=== PATIENT | male | born 1950 | race Caucasian/White ===

== ENCOUNTER 2017-12-15 18:53 | Observation (INO) | payer MEDICARE, OTHER ==
[~2017-12-15] VITALS: Ht 175.3 cm; Wt 93.9 kg
[~2017-12-15 18:53] MED LIST: AMBIEN5 MG PO; ANTERA PO; ASPIR 8181 MG PO; ASPIRIN81 MG PO; CEFUROXIME250 MG PO; CITALOPRAM HBR40 MG PO; CLARITIN-D 241 EACH PO; DAILY VITAMIN1 EAC3 PO; FENOFIBRATE134 MG PO; FINASTERIDE5 MG PO; IBUPROFEN400 MG PO; LISINOPRIL10 MG PO; LORATADINE10 MG PO; OXYBUTYNIN CHLOR5 MG PO; TERAZOSIN HCL5 MG PO; VITAMIN C500 M1 PO; VITAMIN C500 M2
[2017-12-15 20:13] LABS: INR 1.07; PARTIAL THROMBOPLASTIN TIME 29.2 seconds (23.8-35.5); PROTHROMBIN TIME 13.1 seconds (11.9-14.5)
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
[2017-12-15 20:20] LABS: BASOPHILS # (AUTO) 0.1 (0.0-0.1); BASOPHILS % 0.8 % (0.0-1.0); EOSINOPHILS # (AUTO) 0.2 (0.0-0.4); EOSINOPHILS % 2.3 % (0.0-6.0); HEMATOCRIT 34.4 % (38.2-49.6); LYMPHOCYTES # (AUTO) 4.5 (1.0-3.2); LYMPHOCYTES % 45.6 % (18.0-39.1); MEAN CORPUSCULAR HEMOGLOBIN 33.9 pg (28-32); MEAN CORPUSCULAR HGB CONC 37.8 g/dL (31-35); MEAN CORPUSCULAR VOLUME 89.8 fL (81-99); NEUTROPHILS % 41.1 % (38.7-80.0); PLATELET COUNT 369 x10e3/uL (140-360); RED BLOOD COUNT 3.83 x10e6/uL (4.3-5.7); RED CELL DISTRIBUTION WIDTH 12.8 % (11.7-14.4)
[2017-12-15 20:21] LABS: ALANINE AMINOTRANSFERASE 48 IU/L (0-55); ALBUMIN 4.1 g/dL (3.5-5.0); ALBUMIN/GLOBULIN RATIO 1.3 (0.8-2.0); ALKALINE PHOSPHATASE 58 IU/L (40-150); ANION GAP 13.2 mmol/L (8-16); BLOOD UREA NITROGEN 24 mg/dL (7-26); BUN/CREATININE RATIO 23 (6-25); CARBON DIOXIDE 21 mmol/L (22-29); CHLORIDE 108 mmol/L (98-107); CREATINE KINASE 730 IU/L (30-200); CREATININE, SERUM 1.06 mg/dL (0.72-1.25); EST GLOMERULAR FILTRATION RATE > 60 ML/MIN (60-); GLUCOSE 94 mg/dL (74-118); POTASSIUM 4.2 mmol/L (3.5-5.1); SODIUM 138 mmol/L (136-145)
[2017-12-15 21:12] LABS: BILIRUBIN,URINE NEGATIVE (NEGATIVE); CLARITY,URINE CLEAR (CLEAR); COLOR,URINE YELLOW (YELLOW); KETONES,URINE NEGATIVE (NEGATIVE); LEUKOCYTE ESTERASE ,URINE NEGATIVE (NEGATIVE); NITRITE,URINE NEGATIVE (NEGATIVE); PROTEIN,URINE DIPSTICK NEGATIVE (NEGATIVE); URINE UROBILINOGEN 0.2 mg/dL (0.2 - 1)
[2017-12-15 21:30] LABS: BACTERIA,URINE RARE /HPF; EPITHELIAL CELLS,URINE FEW /LPF; RBC,URINE 0-5 /HPF (0-5); WBC,URINE (MAN) 0-5 /HPF (0-5)
[2017-12-15] MEDS ORDERED: KETOROLAC TROMETHAMINE 30 MG/ML VIAL IV STA (22:46)
[2017-12-15] MEDS ORDERED: ONDANSETRON HCL INJ 2 MG/ML VIAL IV STA (22:46)
[2017-12-15] MEDS ORDERED: MORPHINE SULFATE 2 MG/ML SYR IV STA (22:46)
[2017-12-15] MEDS ORDERED: SODIUM CHLORIDE 0.9% 1000ML 1,000 ML IV SCH (23:00)
[2017-12-15] MEDS ORDERED: SODIUM CHLORIDE 0.9% 50ML 50 ML ONE (23:22)
[2017-12-15] MEDS ORDERED: IOPAMIDOL 370 MG/ML 200 ML INFUS..BTL INJ ONE (23:23)
[2017-12-16] VITALS (8 sets, daily range): BP systolic 131–161; BP diastolic 60–72
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
[2017-12-16] MEDS ORDERED: ONDANSETRON HCL INJ 2 MG/ML VIAL IV PRN (00:45)
[2017-12-16] MEDS: FAMOTIDINE 20 MG/2 ML VIAL IV SCH ×2 (00:58→17:22)
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
[2017-12-16] MEDS: SODIUM CHLORIDE 0.9% 1000ML 1,000 ML IV SCH ×4 (04:05→17:54)
[2017-12-16] MEDS: MORPHINE SULFATE 2 MG/ML SYR IV PRN ×4 (04:12→23:50)
[2017-12-16] MEDS ORDERED: IBUPROFEN 400 MG TAB PO PRN (07:45)
[2017-12-16] MEDS: LORATADINE 10 MG TAB PO SCH (09:08)
[2017-12-16] MEDS: TERAZOSIN HCL 5 MG CAP PO SCH (09:08)
[2017-12-16] MEDS: LISINOPRIL 10 MG TAB PO SCH (09:08)
[2017-12-16] MEDS: ASPIRIN 81 MG CHEW TAB PO SCH (09:08)
[2017-12-16] MEDS: FINASTERIDE 5 MG TAB PO SCH (09:09)
[2017-12-16] MEDS: ASCORBIC ACID 500 MG TAB PO SCH (09:09)
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
[2017-12-16 15:47] LABS: BASOPHILS # (AUTO) 0.1 (0.0-0.1); BASOPHILS % 0.8 % (0.0-1.0); EOSINOPHILS # (AUTO) 0.3 (0.0-0.4); EOSINOPHILS % 3.4 % (0.0-6.0); HEMATOCRIT 30.8 % (38.2-49.6); HEMOGLOBIN 11.6 g/dL (14.0-18.0); LYMPHOCYTES % 37.8 % (18.0-39.1); MEAN CORPUSCULAR HGB CONC 37.7 g/dL (31-35); MEAN CORPUSCULAR VOLUME 90.3 fL (81-99); MONOCYTES # (AUTO) 0.8 (0.2-0.8); MONOCYTES % 10.2 % (4.4-11.3); NEUTROPHILS # (AUTO) 3.8 (2.1-6.9); NEUTROPHILS % 47.5 % (38.7-80.0); PLATELET COUNT 311 x10e3/uL (140-360); RED BLOOD COUNT 3.41 x10e6/uL (4.3-5.7)
[2017-12-16 16:11] LABS: ALANINE AMINOTRANSFERASE 40 IU/L (0-55); ALBUMIN 3.3 g/dL (3.5-5.0); ALBUMIN/GLOBULIN RATIO 1.3 (0.8-2.0); ALKALINE PHOSPHATASE 48 IU/L (40-150); ANION GAP 11.7 mmol/L (8-16); BLOOD UREA NITROGEN 18 mg/dL (7-26); BUN/CREATININE RATIO 21 (6-25); CALCIUM 8.2 mg/dL (8.4-10.2); CARBON DIOXIDE 22 mmol/L (22-29); CHLORIDE 112 mmol/L (98-107); CREATININE, SERUM 0.85 mg/dL (0.72-1.25); EST GLOMERULAR FILTRATION RATE > 60 ML/MIN (60-); GLUCOSE 100 mg/dL (74-118); POTASSIUM 4.7 mmol/L (3.5-5.1); SODIUM 141 mmol/L (136-145)
[2017-12-16 16:32] LABS: CREATINE KINASE 372 IU/L (30-200)
[2017-12-17] VITALS: BP 166/76
[2017-12-17] MEDS: FAMOTIDINE 20 MG/2 ML VIAL IV SCH ×2 (00:45→12:22)
[2017-12-17 01:48] LABS: CREATINE KINASE MB 3.7 ng/mL (0-5.0)
[2017-12-17] MEDS: MORPHINE SULFATE 2 MG/ML SYR IV PRN ×2 (03:36→11:06)
[2017-12-17 04:00] VITALS: BP 160/69
[2017-12-17 07:06] LABS: BASOPHILS # (AUTO) 0.1 (0.0-0.1); BASOPHILS % 0.7 % (0.0-1.0); EOSINOPHILS # (AUTO) 0.3 (0.0-0.4); EOSINOPHILS % 3.7 % (0.0-6.0); HEMATOCRIT 31.2 % (38.2-49.6); HEMOGLOBIN 11.7 g/dL (14.0-18.0); LYMPHOCYTES # (AUTO) 3.3 (1.0-3.2); MEAN CORPUSCULAR HEMOGLOBIN 34.4 pg (28-32); MEAN CORPUSCULAR HGB CONC 37.5 g/dL (31-35); MEAN CORPUSCULAR VOLUME 91.8 fL (81-99); MONOCYTES # (AUTO) 0.6 (0.2-0.8); MONOCYTES % 7.9 % (4.4-11.3); NEUTROPHILS # (AUTO) 3.9 (2.1-6.9); NEUTROPHILS % 47.5 % (38.7-80.0); PLATELET COUNT 310 x10e3/uL (140-360)
[2017-12-17 07:30] LABS: CREATINE KINASE 261 IU/L (30-200)
[2017-12-17 07:35] LABS: CHOL/HDL RATIO 5.5 (3.9-4.7)
[2017-12-17 07:37] VITALS: BP 159/71
[2017-12-17 07:38] LABS: ALANINE AMINOTRANSFERASE 43 IU/L (0-55); ALBUMIN 3.4 g/dL (3.5-5.0); ALBUMIN/GLOBULIN RATIO 1.5 (0.8-2.0); ALKALINE PHOSPHATASE 44 IU/L (40-150); ANION GAP 11.2 mmol/L (8-16); BLOOD UREA NITROGEN 14 mg/dL (7-26); BUN/CREATININE RATIO 17 (6-25); CALCIUM 8.3 mg/dL (8.4-10.2); CARBON DIOXIDE 22 mmol/L (22-29); CHLORIDE 112 mmol/L (98-107); CREATININE, SERUM 0.82 mg/dL (0.72-1.25); EST GLOMERULAR FILTRATION RATE > 60 ML/MIN (60-); GLUCOSE 116 mg/dL (74-118); POTASSIUM 4.2 mmol/L (3.5-5.1); SODIUM 141 mmol/L (136-145)
[2017-12-17] MEDS: ASCORBIC ACID 500 MG TAB PO SCH (10:34)
[2017-12-17] MEDS: LORATADINE 10 MG TAB PO SCH (10:34)
[2017-12-17] MEDS: LISINOPRIL 10 MG TAB PO SCH (10:34)
[2017-12-17] MEDS: FINASTERIDE 5 MG TAB PO SCH (10:34)
[2017-12-17] MEDS: ASPIRIN 81 MG CHEW TAB PO SCH (10:34)
[2017-12-17] MEDS: TERAZOSIN HCL 5 MG CAP PO SCH (10:34)
[2017-12-17 11:12] VITALS: BP 154/70
[2017-12-17 15:31] VITALS: BP 162/79
[2017-12-17] MEDS ORDERED: FAMOTIDINE 20 MG TAB PO SCH (16:30)
[2017-12-18] MEDS ORDERED: LISINOPRIL 20 MG TAB PO SCH (09:00)
== END 2017-12-17 18:00 | disposition home or self-care (01) ==
LOC: ER 18:53 → IMCU 12-16 01:17
PROVIDERS: ADMIT Internal Medicine; ATTEND Internal Medicine
DX: R07.89 Other chest pain (principal); T79.6XXA Traumatic ischemia of muscle, initial encounter; V43.52XA Car driver injured in collision with other type car in traffic accident, initial encounter; I10 Essential (primary) hypertension; E78.5 Hyperlipidemia, unspecified; R55 Syncope and collapse; N40.0 Benign prostatic hyperplasia without lower urinary tract symptoms
CPT/HCPCS: 36415 ×2; 70450; 71046; 71260; 72125; 80053 ×3; 80061; 81001; 82550 ×3; 82553 ×3; 84484 ×3; 85025 ×3; 85610; 85730; 93005 ×2; 93306; 93880; 97139; 99284; G0378 ×2; J1885; J2270 ×3; J2405; J7030 ×2; Q9967

== ENCOUNTER 2018-02-13 20:34 | Emergency (ER) | payer MEDICARE, OTHER ==
[~2018-02-13] VITALS: Ht 175.3 cm; Wt 93.9 kg
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
[2018-02-13 21:12] LABS: INR 1.01; PROTHROMBIN TIME 12.5 seconds (11.9-14.5)
[2018-02-13 21:13] LABS: PARTIAL THROMBOPLASTIN TIME 27.4 seconds (23.8-35.5)
[2018-02-13 21:22] LABS: ALANINE AMINOTRANSFERASE 38 IU/L (0-55); ALBUMIN 3.8 g/dL (3.5-5.0); ALBUMIN/GLOBULIN RATIO 1.1 (0.8-2.0); ALKALINE PHOSPHATASE 63 IU/L (40-150); ANION GAP 14.8 mmol/L (8-16); BLOOD UREA NITROGEN 15 mg/dL (7-26); BUN/CREATININE RATIO 16 (6-25); CALCIUM 9.4 mg/dL (8.4-10.2); CARBON DIOXIDE 22 mmol/L (22-29); CHLORIDE 106 mmol/L (98-107); CREATINE KINASE 172 IU/L (30-200); CREATININE, SERUM 0.95 mg/dL (0.72-1.25); EST GLOMERULAR FILTRATION RATE > 60 ML/MIN (60-); GLUCOSE 106 mg/dL (74-118); POTASSIUM 3.8 mmol/L (3.5-5.1); SODIUM 139 mmol/L (136-145)
[2018-02-13] MEDS ORDERED: ACETAMINOPHEN 325 MG TAB ONE (21:37)
[2018-02-13 21:46] LABS: BASOPHILS # (AUTO) 0.1 (0.0-0.1); BASOPHILS % 0.7 % (0.0-1.0); EOSINOPHILS # (AUTO) 0.3 (0.0-0.4); EOSINOPHILS % 2.5 % (0.0-6.0); LYMPHOCYTES # (AUTO) 4.6 (1.0-3.2); LYMPHOCYTES % 43.3 % (18.0-39.1); MEAN CORPUSCULAR HEMOGLOBIN 34.3 pg (28-32); MEAN CORPUSCULAR HGB CONC 37.5 g/dL (31-35); MEAN CORPUSCULAR VOLUME 91.5 fL (81-99); MONOCYTES # (AUTO) 1.2 (0.2-0.8); MONOCYTES % 10.7 % (4.4-11.3); NEUTROPHILS # (AUTO) 4.5 (2.1-6.9); NEUTROPHILS % 42.3 % (38.7-80.0); PLATELET COUNT 390 x10e3/uL (140-360); RED BLOOD COUNT 5.04 x10e6/uL (4.3-5.7); RED CELL DISTRIBUTION WIDTH 14.9 % (11.7-14.4)
[2018-02-13 21:48] LABS: HEMATOCRIT 46.1 % (38.2-49.6); HEMOGLOBIN 17.3 g/dL (14.0-18.0)
--- NOTE | 2018-02-13 22:08 | Diagnostic Imaging Report ---
EXAMINATION: CHEST SINGLE (PORTABLE) INDICATION: Chest pain. COMPARISON: CT of the chest on 12/15/2017 and chest x-ray on 12/15/2017 FINDINGS: TUBES and LINES: None. LUNGS: Lungs are not well inflated. Lungs are clear. There is mild prominence of the central pulmonary vasculature, consistent with pulmonary venous congestion. PLEURA: No pleural effusion or pneumothorax. HEART AND MEDIASTINUM: The cardiomediastinal silhouette is unremarkable. There are atherosclerotic calcifications within the aorta. BONES AND SOFT TISSUES: No acute osseous lesion. Soft tissues are unremarkable. UPPER ABDOMEN: No free air under the diaphragm. IMPRESSION: No acute thoracic abnormality. Signed by: Dr. Patric Multani M.D. on 02/13/2018 10:00 PM
[2018-02-13] MEDS ORDERED: IOPAMIDOL 370 MG/ML 200 ML INFUS..BTL INJ ONE (22:18)
[2018-02-13] MEDS ORDERED: SODIUM CHLORIDE 0.9% 50ML 50 ML ONE (22:19)
--- NOTE | 2018-02-13 22:42 | Diagnostic Imaging Report ---
EXAM: CT Chest WITH contrast 02/13/2018 10:00 PM INDICATION: Shortness of breath, pulmonary embolism COMPARISON: Chest CT on 12/15/2017 TECHNIQUE: Chest was scanned utilizing a multidetector helical scanner from the lung apex through the level of the diaphragm after administration of IV contrast. Thin section reconstructions were obtained with special concentration on the pulmonary arteries. Coronal and sagittal reformations were obtained. Pulmonary embolism protocol was performed. IV CONTRAST: 70 mL of Isovue-370 RADIATION DOSE: Total DLP: 626.36 mGy*cm Estimated effective dose: (DLP x 0.014 x size factor) mSv COMPLICATIONS: None FINDINGS: LINES/ TUBES: None. LUNGS AND AIRWAYS: No filling defect is identified within the pulmonary arteries to the segmental level. There is a 4 mm pulmonary nodule adjacent to the major fissure of the right lung on series 3, image 62 There is evidence of centrilobular and paraseptal emphysema. Airways are normal. PLEURA: The pleural spaces are clear. HEART AND MEDIASTINUM: The thyroid gland is normal. No mediastinal, hilar or axillary lymphadenopathy. The heart is normal in size.. There is no pericardial effusion. There are moderate atherosclerotic calcifications in the aorta and coronary arteries.. Main pulmonary artery measures 3.0 cm in diameter , slightly dilated. UPPER ABDOMEN: Diffuse hepatic steatosis. BONES: There are degenerative changes in the thoracic spine. SOFT TISSUES: Unremarkable. IMPRESSION: 1. No evidence of pulmonary embolism. 2. Centrilobular and paraseptal emphysema. 3. Right pulmonary nodule, attention on follow-up examination is recommended. 4. Mild atherosclerotic disease of the thoracic aorta and branches 5. Mild dilatation of the pulmonary artery may suggest pulmonary hypertension. Signed by: Dr. Patric Multani M.D. on 02/13/2018 10:38 PM
[2018-02-13 23:21] VITALS: BP 139/83
== END 2018-02-13 23:43 | disposition home or self-care (01) ==
LOC: ER 20:34
DX: R07.1 Chest pain on breathing (principal); E78.5 Hyperlipidemia, unspecified; J61 Pneumoconiosis due to asbestos and other mineral fibers; N40.0 Benign prostatic hyperplasia without lower urinary tract symptoms; Z79.82 Long term (current) use of aspirin
CPT/HCPCS: 36415; 71045; 71260; 80053; 82550; 82553; 83880; 84484; 85025; 85379; 85610; 85730; 93005; 99284; Q9967

== ENCOUNTER 2018-04-17 15:35 | Emergency (ER) | payer MEDICARE, OTHER ==
[~2018-04-17] VITALS: Ht 177.8 cm; Wt 99.8 kg
[2018-04-17 16:56] LABS: BASOPHILS % 0.4 % (0.0-1.0); EOSINOPHILS # (AUTO) 0.2 (0.0-0.4); HEMATOCRIT 37.3 % (38.2-49.6); HEMOGLOBIN 13.6 g/dL (14.0-18.0); LYMPHOCYTES % 40.8 % (18.0-39.1); MEAN CORPUSCULAR HEMOGLOBIN 33.5 pg (28-32); MEAN CORPUSCULAR HGB CONC 36.5 g/dL (31-35); MEAN CORPUSCULAR VOLUME 91.9 fL (81-99); MONOCYTES # (AUTO) 0.7 (0.2-0.8); MONOCYTES % 7.5 % (4.4-11.3); NEUTROPHILS # (AUTO) 4.8 (2.1-6.9); NEUTROPHILS % 48.9 % (38.7-80.0); PLATELET COUNT 335 x10e3/uL (140-360); RED BLOOD COUNT 4.06 x10e6/uL (4.3-5.7); RED CELL DISTRIBUTION WIDTH 13.1 % (11.7-14.4)
[2018-04-17 17:28] LABS: ALANINE AMINOTRANSFERASE 68 IU/L (0-55); ALBUMIN/GLOBULIN RATIO 1.3 (0.8-2.0); ALKALINE PHOSPHATASE 54 IU/L (40-150); ANION GAP 17.4 mmol/L (8-16); BLOOD UREA NITROGEN 22 mg/dL (7-26); BUN/CREATININE RATIO 18 (6-25); CALCIUM 9.8 mg/dL (8.4-10.2); CARBON DIOXIDE 20 mmol/L (22-29); CHLORIDE 107 mmol/L (98-107); CREATINE KINASE 522 IU/L (30-200); EST GLOMERULAR FILTRATION RATE 60 ML/MIN (60-); GLUCOSE 103 mg/dL (74-118); POTASSIUM 4.4 mmol/L (3.5-5.1); SODIUM 140 mmol/L (136-145)
--- NOTE | 2018-04-17 17:38 | Diagnostic Imaging Report ---
PROCEDURE:X-RAY LEFT SHOULDER, COMPLETE COMPARISON:Chest CT 02/13/2018 INDICATIONS:FALL SHOULDER PAIN FINDINGS: There are no acute fractures, dislocations, lytic or blastic lesions. The bones are well-mineralized. A well corticated density projects within the coracoclavicular interval and may represent a ligamentous calcification or old avulsion, stable from chest CT 02/13/2018. The coracoclavicular and acromioclavicular intervals are intact. The soft-tissues are unremarkable. CONCLUSION: No acute osseous abnormalities. Dictated by: Robert Robbins M.D. on 04/17/2018 at 17:42 Electronically approved by: Robert Robbins M.D. on 04/17/2018 at 17:42
--- NOTE | 2018-04-17 17:41 | Diagnostic Imaging Report ---
PROCEDURE: A single AP view of the chest. COMPARISON: Chest radiograph and CT from 02/13/2018 INDICATIONS: FALL FINDINGS: Lines/tubes: None. Lungs: The lungs are well inflated and clear. There is no evidence of pneumonia or pulmonary edema. Pleura: There is no pleural effusion or pneumothorax. Heart and mediastinum: The heart and the mediastinum are unremarkable. Bones: No acute bony abnormality. IMPRESSION: No acute cardiopulmonary disease. Dictated by: Robert Robbins M.D. on 04/17/2018 at 17:45 Electronically approved by: Robert Robbins M.D. on 04/17/2018 at 17:45
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
[2018-04-17] MEDS ORDERED: MORPHINE SULFATE 2 MG/ML SYR IV STA (18:43)
[2018-04-17 20:02] VITALS: BP 125/66
== END 2018-04-17 20:05 | disposition home or self-care (01) ==
LOC: ER 15:35
DX: S06.0X1A Concussion with loss of consciousness of 30 minutes or less, initial encounter (principal); S16.1XXA Strain of muscle, fascia and tendon at neck level, initial encounter; W01.198A Fall on same level from slipping, tripping and stumbling with subsequent striking against other object, initial encounter; Y93.89 Activity, other specified; Y92.238 Other place in hospital as the place of occurrence of the external cause; I10 Essential (primary) hypertension; E78.5 Hyperlipidemia, unspecified; F41.9 Anxiety disorder, unspecified; F32.9 Major depressive disorder, single episode, unspecified
CPT/HCPCS: 36415; 70450; 71045; 72125; 73030; 80053; 82550; 82553; 84484; 85025; 93005; 99284; J2270

== ENCOUNTER → 2018-12-24 | Day surgery (SDC) | payer MEDICARE, OTHER ==
[2018-12-23 13:47] LABS: BASOPHILS # (AUTO) 0.1 (0.0-0.1); BASOPHILS % 0.7 % (0.0-1.0); EOSINOPHILS # (AUTO) 0.2 (0.0-0.4); HEMATOCRIT 40.3 % (38.2-49.6); HEMOGLOBIN 15.1 g/dL (14.0-18.0); LYMPHOCYTES # (AUTO) 4.9 (1.0-3.2); LYMPHOCYTES % 45.9 % (18.0-39.1); MEAN CORPUSCULAR HGB CONC 37.5 g/dL (31-35); MEAN CORPUSCULAR VOLUME 90.8 fL (81-99); MONOCYTES % 9.8 % (4.4-11.3); NEUTROPHILS # (AUTO) 4.4 (2.1-6.9); NEUTROPHILS % 41.3 % (38.7-80.0); PLATELET COUNT 274 x10e3/uL (140-360); RED BLOOD COUNT 4.44 x10e6/uL (4.3-5.7); RED CELL DISTRIBUTION WIDTH 13.3 % (11.7-14.4)
[2018-12-23 13:48] LABS: ALANINE AMINOTRANSFERASE 54 IU/L (0-55); ALBUMIN 3.9 g/dL (3.5-5.0); ALBUMIN/GLOBULIN RATIO 1.3 (0.8-2.0); ALKALINE PHOSPHATASE 84 IU/L (40-150); BLOOD UREA NITROGEN 15 mg/dL (7-26); BUN/CREATININE RATIO 19 (6-25); CALCIUM 9.3 mg/dL (8.4-10.2); CARBON DIOXIDE 21 mmol/L (22-29); CHLORIDE 107 mmol/L (98-107); CREATININE, SERUM 0.78 mg/dL (0.72-1.25); EST GLOMERULAR FILTRATION RATE > 60 ML/MIN (60-); GLUCOSE 96 mg/dL (74-118); SODIUM 136 mmol/L (136-145)
[~2018-12-24] VITALS: Ht 175.3 cm; Wt 99.8 kg
[2018-12-24] VITALS (7 sets, daily range): BP systolic 109–129; BP diastolic 60–87
[~2018-12-24] MED LIST changes: +ADVAIR 100-501 EACH; +ATROPINE SULFATE 0.1 MG/ML 10ML SYR ONE; +FENTANYL CITRATE/PF 100MCG/2 ML INJ ONE; +HEPARIN SOD (PORCINE) 1000 UNIT/ML 30ML ONE; +HEPARIN SOD/SOD CHLORIDE 2,000 ML ONE; +IOPAMIDOL 370 MG/ML 200 ML INFUS..BTL INJ ONE; +LIDOCAINE HCL 1% LOCAL INJ 20 ML VIAL ONE; +METOPROLOL SUCC25 MG; +MIDAZOLAM HCL 2 MG/2 ML VIAL ONE; +PLAVIX75 MG PO; +PROTAMINE SULFATE 10 MG/ML 5 ML VIAL ONE; +SODIUM CHLORIDE 0.9% 1000ML 1,000 ML ONE; +SODIUM CHLORIDE 0.9% 50ML 50 ML ONE
--- OUTSIDE RECORDS SUMMARY | 2018-12-24 11:57 | XMS REPORT | Summary of Care ---
Author Author [facility] Organization [facility] Address Unknown Phone Unavailable Encounter HQ Marcin(SANDRO) [id number] Date(s): 03/12/18 - 03/13/18 [facility] [address] [place] [address]- Discharge Disposition: Home or Self Care Attending Physician: Ye Thomas MD Admitting Physician: Ye Thomas MD Referring Physician: Ye Thomas MD Vital Signs 1 2 3 Most recent to oldest [Reference Range]: 173.99 cm (03/11/18 8:33 PM) 175.2 cm (03/11/18 12:31 PM) Height 98.6 DegF (03/13/18 12:00 PM) 98.9 DegF (03/13/18 8:00 AM) 98.3 DegF (03/13/18 12:00 AM) Temperature Oral [96.4-99.1 DegF] 123/59 mmHg (03/13/18 12:00 PM) 113/74 mmHg (03/13/18 11:00 AM) 133/69 mmHg (03/13/18 10:00 AM) Blood Pressure [90-140/60-90 mmHg] 15 BRMIN (03/13/18 12:00 PM) 15 BRMIN (03/13/18 11:00 AM) 18 BRMIN (03/13/18 10:00 AM) Respiratory Rate [14-20 BRMIN] 101.3 kg (03/11/18 8:33 PM) 98.8 kg (03/11/18 12:31 PM) Weight 33.46 m2 (03/11/18 8:33 PM) 32.19 m2 (03/11/18 12:31 PM) Body Mass Index Problem List No data available for this section Allergies, Adverse Reactions, Alerts Substance Reaction Severity Status Vicodin Active Benadryl Vicodin Active Medications ALPRAZOLam 0.5 mg oral tablet 0.5 mg, 1 tab, Route: PO, ONCE, Dosing Weight 98.8, kg, Start date: 03/11/18 17: 35:00 CDT, Stop date: 03/11/18 17:35:00 CDT Start Date: 03/11/18 Stop Date: 03/11/18 Status: Completed ALPRAZOLam 0.5 mg oral tablet 0.5 mg, 1 tab, Route: PO, Drug form: TAB, Q8Hnow, Dosing Weight 98.8, kg, Start date: 03/11/18 13:00:00 CDT, Duration: 30 day, Stop date: 04/10/18 5:00:00 CDT Notes: With food or milk(Same as: Xanax) Start Date: 03/11/18 Stop Date: 03/11/18 Status: Discontinued aspirin 81 mg tablet, chewable 81 mg, 1 tab, Route: PO, Drug form: CHEWTAB, Daily, Dosing Weight 98.8, kg, Star t date: 03/12/18 9:00:00 CDT, Duration: 30 day, Stop date: 04/10/18 9:00:00 CDT Start Date: 03/12/18 Stop Date: 03/11/18 Status: Deleted aspirin 81 mg tablet, chewable 81 mg=1 tab, PO, Daily, tab, 0 Refill(s) Start Date: 03/11/18 Status: Ordered aspirin 81 mg tablet, enteric coated 81 mg, 1 tab, Route: PO, Drug form: ECTAB, Daily, Dosing Weight 98.8, kg, Start date: 03/12/18 9:00:00 CDT, Duration: 30 day, Stop date: 04/10/18 9:00:00 CDT Notes: Do not crush or chew.(Same As: Ecotrin) Start Date: 03/12/18 Stop Date: 03/13/18 Status: Discontinued atorvastatin PO, Daily, 0 Refill(s) Start Date: 03/11/18 Stop Date: 03/13/18 Status: Discontinued atorvastatin 40 mg, 1 tab, Route: PO, Drug form: TAB, Daily, Dosing Weight 98.8, kg, Start da te: 03/12/18 9:00:00 CDT, Duration: 30 day, Stop date: 04/10/18 9:00:00 CDT Notes: (Same as: Lipitor) Start Date: 03/12/18 Stop Date: 03/13/18 Status: Discontinued atorvastatin 40 mg oral tablet 40 mg=1 tab, PO, Daily, # 30 tab, 0 Refill(s), Pharmacy: [facility] [id number] Start Date: 03/13/18 Status: Ordered citalopram 20 mg, 2 tab, Route: PO, Drug form: TAB, Daily, Dosing Weight 98.8, kg, Start da te: 03/12/18 9:00:00 CDT, Duration: 30 day, Stop date: 04/10/18 9:00:00 CDT Start Date: 03/12/18 Stop Date: 03/13/18 Status: Discontinued citalopram 40 mg oral tablet 20 mg=0.5 tab, PO, Daily, 0 Refill(s) Start Date: 03/11/18 Status: Ordered clopidogrel 75 mg, 1 tab, Route: PO, Drug form: TAB, Daily, Dosing Weight 98.8, kg, Start da te: 03/12/18 9:00:00 CDT, Duration: 30 day, Stop date: 04/10/18 9:00:00 CDT Notes: (Same As: Plavix) Start Date: 03/12/18 Stop Date: 03/13/18 Status: Discontinued clopidogrel 75 mg oral tablet 75 mg=1 tab, PO, Daily, # 30 tab, 0 Refill(s), Pharmacy: [facility] [id number] Start Date: 03/13/18 Status: Ordered famotidine 20 mg, 1 tab, Route: PO, Drug form: TAB, Q12H, Dosing Weight 98.8, kg, Start luther e: 03/11/18 21:00:00 CDT, Duration: 30 day, Stop date: 04/10/18 9:00:00 CDT Notes: (Same as: Pepcid) Start Date: 03/11/18 Stop Date: 03/13/18 Status: Discontinued fentaNYL 25 microgram, 0.5 mL, Route: IVP, Drug form: INJ, Q4H, Dosing Weight 101.3, kg, PRN Pain Score 6-10, Priority: NOW, Start date: 03/12/18 20:17:00 CDT, Duration: 30 day, Stop date: 04/11/18 20:16:00 CDT Notes: (Same as: Sublimaze) Preservative free. Start Date: 03/12/18 Stop Date: 03/13/18 Status: Discontinued Heparin 30 unit/kg Bolus (Heparin Dosing Weight) Route: IVP, PRN, 2,400 unit, 2.4 mL, Drug form: INJ, PRN, Heparin Protocol, Star t date: 03/11/18 17:52:00 CDT Stop date: 04/10/18 17:51:00 CDT, 30 day Start Date: 03/11/18 Stop Date: 03/12/18 Status: Discontinued Heparin 60 unit/kg Bolus (Heparin Dosing Weight) Route: IVP, PRN, 4,800 unit, 4.8 mL, Drug form: INJ, PRN, Heparin Protocol, Star t date: 03/11/18 17:52:00 CDT Stop date: 04/10/18 17:51:00 CDT, 30 day Start Date: 03/11/18 Stop Date: 03/12/18 Status: Discontinued heparin additive 25,000 unit [12 unit/kg/hr] + Premix Diluent Dextrose 5% 500 mL 500 mL, Rate: 19.01 ml/hr, Infuse over: 26.3 hr, Route: IV, Dosing Weight 79.2 k g, Total Volume: 500 mL, Start date: 03/11/18 17:52:00 CDT, Duration: 30 day, St op date: 04/10/18 17:51:00 CDT, 1.98, m2 Start Date: 03/11/18 Stop Date: 03/12/18 Status: Discontinued hydrALAZINE 20 mg, 1 mL, Route: IV, Drug form: INJ, Q4H, Dosing Weight 101.3, kg, PRN Hypert ension, Start date: 03/12/18 12:39:00 CDT, Duration: 30 day, Stop date: 04/11/18 12:38:00 CDT Notes: (Same as: Apresoline)Push over 5 minutes Start Date: 03/12/18 Stop Date: 03/13/18 Status: Discontinued lisinopril 20 mg, 1 tab, Route: PO, Drug form: TAB, Daily, Dosing Weight 98.8, kg, Start da te: 03/12/18 9:00:00 CDT, Duration: 30 day, Stop date: 04/10/18 9:00:00 CDT Notes: (Same as: Prinivil, Zestril) Start Date: 03/12/18 Stop Date: 03/13/18 Status: Discontinued lisinopril 20 mg oral tablet 20 mg=1 tab, PO, Daily, 0 Refill(s) Start Date: 03/11/18 Status: Ordered Lotrimin AF Cream 1% topical 1 appl, Route: TOP, BID, Drug form: CRM, Start date: 03/11/18 17:00:00 CDT, Dura tion: 30 day, Stop date: 04/10/18 9:00:00 CDT Notes: For external use only.(Same As: Lotrimin AF, Mycelex) Start Date: 03/11/18 Stop Date: 03/13/18 Status: Discontinued Lotrimin AF Cream 1% topical 1 appl, TOP, BID, 0 Refill(s) Start Date: 03/11/18 Status: Ordered metoprolol 25 mg oral tablet, extended release 25 mg=1 tab, PO, Daily, # 30 tab, 0 Refill(s), Pharmacy: [facility] [id number] Start Date: 03/13/18 Status: Ordered metoprolol extended release 25 mg, 1 tab, Route: PO, Drug form: ERTAB, Daily, Start date: 03/12/18 9:00:00 C DT, Duration: 30 day, Stop date: 04/10/18 9:00:00 CDT Notes: (Same as: Toprol XL) Do Not Crush Start Date: 03/12/18 Stop Date: 03/13/18 Status: Discontinued morphine Sulfate 4 mg, 2 mL, Route: IVP, Drug form: SOLN, Q2H, Dosing Weight 98.8, kg, PRN Pain S core 7-10, Start date: 03/11/18 16:20:00 CDT, Duration: 30 day, Stop date: 04/10 16:19:00 CDT Start Date: 03/11/18 Stop Date: 03/12/18 Status: Discontinued morphine Sulfate 12 mg, 6 mL, Route: PO, Drug form: SOLN, Q4H, Dosing Weight 101.3, kg, PRN Pain Score 7-10, Start date: 03/12/18 12:36:00 CDT, Duration: 30 day, Stop date: 03/23 11/08 12:35:00 CDT Notes: (Same as:MORPhine Sulfate) Start Date: 03/12/18 Stop Date: 03/13/18 Status: Discontinued Mucinex 1200, PO, Daily, PRN Allergies, 0 Refill(s) Start Date: 03/12/18 Stop Date: 03/13/18 Status: Discontinued nitroglycerin SL Tab 0.4 mg, 1 tab, Route: SL, Drug form: TAB, Q5Min, Dosing Weight 98.8, kg, PRN [address] st Pain, Start date: 03/11/18 16:20:00 CDT, Duration: 3 doses or times, Stop luther e: Limited # of times Notes: (Same as:Nitroquick, Nitrostat)"Do Not Crush" Sublingual tablet Start Date: 03/11/18 Stop Date: 03/13/18 Status: Discontinued nitroglycerin SL Tab 0.4 mg, 1 tab, Route: SL, Drug form: TAB, Q5Min, Dosing Weight 101.3, kg, PRN Ch est Pain, Start date: 03/12/18 12:36:00 CDT, Duration: 3 doses or times, Stop da te: Limited # of times Notes: (Same as:Nitroquick, Nitrostat)"Do Not Crush" Sublingual tablet Start Date: 03/12/18 Stop Date: 03/13/18 Status: Discontinued ondansetron 4 mg, 1 tab, Route: PO, Drug form: TAB, Q8H, Dosing Weight 98.8, kg, PRN Nausea & Vomiting, Start date: 03/11/18 16:20:00 CDT, Duration: 30 day, Stop date: 04/10/18 16:19:00 CDT Notes: (Same as: Zofran) Start Date: 03/11/18 Stop Date: 03/13/18 Status: Discontinued prasugrel 60 mg, Route: PO, Drug form: TAB, ONCE, Dosing Weight 98.8, kg, Priority: NOW, S tart date: 03/11/18 16:19:00 CDT, Stop date: 03/11/18 16:19:00 CDT Start Date: 03/11/18 Stop Date: 03/11/18 Status: Completed Sodium Chloride 0.9% IV 750 mL 750 mL, Rate: 75 ml/hr, Infuse over: 10 hr, Route: IV, Dosing Weight 98.8 kg, To akil Volume: 750, Start date: 03/11/18 16:20:00 CDT, Duration: 10 hr, Stop date: 03/12/18 2:19:00 CDT, 2.21, m2 Start Date: 03/11/18 Stop Date: 03/12/18 Status: Completed Sodium Chloride 0.9% IV 750 mL 750 mL, Rate: 75 ml/hr, Infuse over: 10 hr, Route: IV, Dosing Weight 101.3 kg, T otal Volume: 750, Start date: 03/12/18 12:36:00 CDT, Duration: 10 hr, Stop date: 03/12/18 22:35:00 CDT, 2.24, m2 Start Date: 03/12/18 Stop Date: 03/12/18 Status: Completed terazosin 10 mg, 2 cap, Route: PO, Drug form: CAP, Bedtime, Dosing Weight 98.8, kg, Start date: 03/11/18 21:00:00 CDT, Duration: 30 day, Stop date: 04/09/18 21:00:00 CDT Notes: (Same As: Hytrin) Start Date: 03/11/18 Stop Date: 03/13/18 Status: Discontinued terazosin 10 mg oral capsule 10 mg=1 cap, PO, Bedtime, 0 Refill(s) Start Date: 03/11/18 Status: Ordered Results ELECTROLYTES 1 2 3 Most recent to oldest [Reference Range]: 138 mEq/L (03/13/18 4:49 AM) 140 mEq/L (03/12/18 7:06 AM) 140 mEq/L (03/11/18 12:39 PM) Sodium Lvl [135-145 mEq/L] 3.7 mEq/L (03/13/18 4:49 AM) 4.0 mEq/L (03/12/18 7:06 AM) 4.6 mEq/L (03/11/18 12:39 PM) Potassium Lvl [3.5-5.1 mEq/L] 108 mEq/L (03/13/18 4:49 AM) 107 mEq/L (03/12/18 7:06 AM) 107 mEq/L (03/11/18 12:39 PM) Chloride Lvl [95-109 mEq/L] 24 mEq/L (03/13/18 4:49 AM) 26 mEq/L (03/12/18 7:06 AM) 24 mEq/L (03/11/18 12:39 PM) CO2 [24-32 mEq/L] 9.7 mEq/L *LOW* (03/13/18 4:49 AM) 11.0 mEq/L (03/12/18 7:06 AM) 13.6 mEq/L (03/11/18 12:39 PM) AGAP [10.0-20.0 mEq/L] CHEM PANEL 1 2 3 Most recent to oldest [Reference Range]: 1.07 mg/dL (03/13/18 4:49 AM) 0.95 mg/dL (03/12/18 7:06 AM) 1.00 mg/dL (03/11/18 12:39 PM) Creatinine Lvl [0.50-1.40 mg/dL] 53 mL/min/1.73m2 1 *NA* (03/13/18 4:49 AM) 62 mL/min/1.73m2 2 *NA* (03/12/18 7:06 AM) 58 mL/min/1.73m2 3 *NA* (03/11/18 12:39 PM) eGFR 16 mg/dL (03/13/18 4:49 AM) 16 mg/dL (03/12/18 7:06 AM) 13 mg/dL (03/11/18 12:39 PM) BUN [7-22 mg/dL] 17 (03/12/18 7:06 AM) 13 (03/11/18 12:39 PM) B/C Ratio [6-25] 118 mg/dL *HI* (03/13/18 4:49 AM) 113 mg/dL *HI* (03/12/18 7:06 AM) 87 mg/dL (03/11/18 12:39 PM) Glucose Lvl [70-99 mg/dL] 6.4 g/dL (03/12/18 7:06 AM) 7.0 g/dL (03/11/18 12:39 PM) Total Protein [6.4-8.4 g/dL] 3.3 g/dL *LOW* (03/12/18 7:06 AM) 3.9 g/dL (03/11/18 12:39 PM) Albumin Lvl [3.5-5.0 g/dL] 3.1 g/dL (03/12/18 7:06 AM) 3.1 g/dL (03/11/18 12:39 PM) Globulin [2.7-4.2 g/dL] 1.1 (03/12/18 7:06 AM) 1.3 (03/11/18 12:39 PM) A/G Ratio [0.7-1.6] 7.8 mg/dL *LOW* (03/13/18 4:49 AM) 8.1 mg/dL *LOW* (03/12/18 7:06 AM) 8.9 mg/dL (03/11/18 12:39 PM) Calcium Lvl [8.5-10.5 mg/dL] 49 unit/L (03/12/18 7:06 AM) 51 unit/L (03/11/18 12:39 PM) ALT [0-65 unit/L] 31 unit/L (03/12/18 7:06 AM) 28 unit/L (03/11/18 12:39 PM) AST [0-37 unit/L] 54 unit/L (03/12/18 7:06 AM) 60 unit/L (03/11/18 12:39 PM) Alk Phos [39-136 unit/L] 0.7 mg/dL (03/12/18 7:06 AM) 0.3 mg/dL (03/11/18 12:39 PM) Bili Total [0.2-1.3 mg/dL] 1Result Comment: The eGFR is calculated using the CKD-EPI formula. In most young, healthy individuals the eGFR will be >90 mL/min/1.73m2. The eGFR declines with age. An eGFR of 60-89 may be normal in some populations, particularly the elderly, for whom the CKD-EPI formula has not been extensively validated. Use of the eGFR is not recommended in the following populations: Individuals with unstable creatinine concentrations, including patients and those with serious co-morbid conditions. Patients with extremes in muscle mass or diet. The data above are obtained from the National Kidney Disease Education Program ( NKDEP) which additionally recommends that when the eGFR is used in patients with extremes of body mass index for purposes of drug dosing, the eGFR should be mul tiplied by the estimated BMI. 2Result Comment: The eGFR is calculated using the CKD-EPI formula. In most young, healthy individuals the eGFR will be >90 mL/min/1.73m2. The eGFR declines with age. An eGFR of 60-89 may be normal in some populations, particularly the elderly, for whom the CKD-EPI formula has not been extensively validated. Use of the eGFR is not recommended in the following populations: Individuals with unstable creatinine concentrations, including patients and those with serious co-morbid conditions. Patients with extremes in muscle mass or diet. The data above are obtained from the National Kidney Disease Education Program ( NKDEP) which additionally recommends that when the eGFR is used in patients with extremes of body mass index for purposes of drug dosing, the eGFR should be mul tiplied by the estimated BMI. 3Result Comment: The eGFR is calculated using the CKD-EPI formula. In most young, healthy individuals the eGFR will be >90 mL/min/1.73m2. The eGFR declines with age. An eGFR of 60-89 may be normal in some populations, particularly the elderly, for whom the CKD-EPI formula has not been extensively validated. Use of the eGFR is not recommended in the following populations: Individuals with unstable creatinine concentrations, including patients and those with serious co-morbid conditions. Patients with extremes in muscle mass or diet. The data above are obtained from the National Kidney Disease Education Program ( NKDEP) which additionally recommends that when the eGFR is used in patients with extremes of body mass index for purposes of drug dosing, the eGFR should be mul tiplied by the estimated BMI. LIPIDS 1 2 3 Most recent to oldest [Reference Range]: 6.91 *HI* (03/11/18 12:39 PM) CHD Risk [3.90-5.80] 159 mg/dL (03/11/18 12:39 PM) Chol [<=199 mg/dL] 315 mg/dL *HI* (03/11/18 12:39 PM) Trig [<=149 mg/dL] 23 mg/dL *LOW* (03/11/18 12:39 PM) HDL [>=61 mg/dL] 73 mg/dL (03/11/18 12:39 PM) LDL (Calculated) [<=99 mg/dL] 63 *NA* (03/11/18 12:39 PM) VLDL HEMATOLOGY 1 2 3 Most recent to oldest [Reference Range]: 11.4 K/CMM *HI* (03/13/18 4:49 AM) 12.0 K/CMM *HI* (03/12/18 7:06 AM) 12.2 K/CMM *HI* (03/11/18 8:24 PM) WBC [3.7-10.4 K/CMM] 3.87 M/CMM *LOW* (03/13/18 4:49 AM) 4.12 M/CMM *LOW* (03/12/18 7:06 AM) 4.35 M/CMM (03/11/18 8:24 PM) RBC [4.20-5.40 M/CMM] 13.3 g/dL (03/13/18 4:49 AM) 14.2 g/dL (03/12/18 7:06 AM) 14.9 g/dL (03/11/18 8:24 PM) Hgb [12.0-16.0 g/dL] 36.9 % (03/13/18 4:49 AM) 38.8 % (03/12/18 7:06 AM) 41.8 % (03/11/18 8:24 PM) Hct [36.0-48.0 %] 95.3 fL (03/13/18 4:49 AM) 94.2 fL (03/12/18 7:06 AM) 96.0 fL (03/11/18 8:24 PM) MCV [80.0-98.0 fL] 34.3 pg *HI* (03/13/18 4:49 AM) 34.5 pg *HI* (03/12/18 7:06 AM) 34.2 pg *HI* (03/11/18 8:24 PM) MCH [27.0-31.0 pg] 36.0 g/dL (03/13/18 4:49 AM) 36.7 g/dL *HI* (03/12/18 7:06 AM) 35.7 g/dL (03/11/18 8:24 PM) MCHC [32.0-36.0 g/dL] 13.1 % (03/13/18 4:49 AM) 13.3 % (03/12/18 7:06 AM) 13.4 % (03/11/18 8:24 PM) RDW [11.5-14.5 %] 7.8 fL (03/13/18 4:49 AM) 7.8 fL (03/12/18 7:06 AM) 7.8 fL (03/11/18 8:24 PM) MPV [7.4-10.4 fL] 275 K/CMM (03/13/18 4:49 AM) 298 K/CMM (03/12/18 7:06 AM) 316 K/CMM (03/11/18 8:24 PM) Platelet [133-450 K/CMM] 52.0 % (03/12/18 7:06 AM) 39.9 % *LOW* (03/11/18 8:24 PM) 50.1 % (03/11/18 12:39 PM) Segs [45.0-75.0 %] 37.5 % (03/12/18 7:06 AM) 47.5 % *HI* (03/11/18 8:24 PM) 37.1 % (03/11/18 12:39 PM) Lymphocytes [20.0-40.0 %] 8.5 % (03/12/18 7:06 AM) 9.3 % (03/11/18 8:24 PM) 9.0 % (03/11/18 12:39 PM) Monocytes [2.0-12.0 %] 1.5 % (03/12/18 7:06 AM) 2.4 % (03/11/18 8:24 PM) 2.8 % (03/11/18 12:39 PM) Eosinophils [0.0-4.0 %] 0.5 % (03/12/18 7:06 AM) 0.9 % (03/11/18 8:24 PM) 1.0 % (03/11/18 12:39 PM) Basophils [0.0-1.0 %] 6.2 K/CMM (03/12/18 7:06 AM) 4.9 K/CMM (03/11/18 8:24 PM) 5.8 K/CMM (03/11/18 12:39 PM) Segs-Bands # [1.5-8.1 K/CMM] 4.5 K/CMM (03/12/18 7:06 AM) 5.8 K/CMM *HI* (03/11/18 8:24 PM) 4.3 K/CMM (03/11/18 12:39 PM) Lymphocytes # [1.0-5.5 K/CMM] 1.0 K/CMM *HI* (03/12/18 7:06 AM) 1.1 K/CMM *HI* (03/11/18 8:24 PM) 1.0 K/CMM *HI* (03/11/18 12:39 PM) Monocytes # [0.0-0.8 K/CMM] 0.2 K/CMM (03/12/18 7:06 AM) 0.3 K/CMM (03/11/18 8:24 PM) 0.3 K/CMM (03/11/18 12:39 PM) Eosinophils # [0.0-0.5 K/CMM] 0.1 K/CMM (03/12/18 7:06 AM) 0.1 K/CMM (03/11/18 8:24 PM) 0.1 K/CMM (03/11/18 12:39 PM) Basophils # [0.0-0.2 K/CMM] 12.8 seconds (03/13/18 4:49 AM) 14.5 seconds (03/12/18 7:06 AM) 14.1 seconds (03/12/18 12:20 AM) PT [12.0-14.7 seconds] 0.96 (03/13/18 4:49 AM) 1.13 (03/12/18 7:06 AM) 1.09 (03/12/18 12:20 AM) INR [0.85-1.17] 30.7 seconds (03/13/18 4:49 AM) 164.1 seconds 1 *CRIT* (03/12/18 2:05 PM) 47.1 seconds *HI* (03/12/18 7:06 AM) PTT [22.9-35.8 seconds] 1Result Comment: Critical Result(s) called to Quita Taylor at 03/12/2018 14:34 by KLS. Read back OK. Immunizations Given and Recorded Vaccine Date Status Refusal Reason pneumococcal 13-valent vaccine 03/13/18 Given Procedures Procedure Date Related Diagnosis Body Site Status Bilateral inguinal hernia repair Completed Cervical laminectomy Completed Social History Social History Type Response Smoking Status Former smoker; Type: Cigarettes; Ready to change: Yes; Concerns about tobacco use in household: No; Exposure to Tobacco Smoke None; Cigarette Smoking Last 365 Days No; Reg Smoking Cessation Counseling No; Started at age: 11.0; Stopped at age: 62; entered on: 03/12/18 Assessment and Plan Extracted from: Title: Clinical Document Author: Ainsley Matta MD Date: 03/13/18 Discharge Summary Admission Diagnosis: 1. Abnormal nuclear stress test Discharge Diagnosis: 1. Coronary artery disease Comorbid Conditions: 1. Hypertension 2. Dyslipidemia Procedures: 1. Left heart catheterization, selective coronary angiography. 2. Percutaneous transluminal coronary angioplasty and drug-eluting stent placement to the right coronary artery for chronic total occlusion. Hospital Course: 67 year-old man who presented for elective cardiac catheterization for evaluation of an abnormal nuclear stress test. He was found to have chronic total occlusion of the right coronary artery for which he underwent PCI. He was admitted to the ICU for staged intervention of the distal RCA the following day. He was monitored overnight and subsequently discharged home in stable condition. Diet: Heart healthy, low sodium diet. Activity: As tolerated. No heavy lifting, no driving for one week. Follow-up: 1. Cardiology. 2. Primary care. Medications: Please see medication reconciliation. Vitals reviewed. General: Awake and alert. Lungs: Clear to auscultation bilaterally. No wheezes/crackles. CV: Normal rate. Regular rhythm. No murmur. Normal S1 and S2. Abd: Soft. Ext: No edema. Right groin without hematoma or bruit. Telemetry: Normal sinus rhythm Extracted from: Title: Progress Note * Author: Ye Thomas MD Date: 03/12/18 Impression and Plan The patient was seen and examined by me with the resident/INTERIOR DESIGN PRINCIPAL/PA and I agree with the History/Exam documented. 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
--- OUTSIDE RECORDS SUMMARY | 2018-12-24 11:57 | XMS REPORT | Continuity of Care Document ---
Author Author [facility] Interface Address Unknown Phone Unavailable Problems Problem Status Onset Date Classification Date Reported Comments Source CAD(CORONARY ARTERY DISEASE) Active 03/07/2018 [facility] HEART CATH Active 03/07/2018 [facility] 490 - BRONCHITIS NOS Active 08/29/2012 [facility] [place] ATHSCL HEART DISEASE OF [place] CORONARY Active [facility] Medications Medication Details Route Status Patient Instructions Ordering Provider Order Date Source metoprolol 25 mg oral tablet, extended release 25 mg=1 tab, PO, Daily, # 30 tab, 0 Refill(s), Pharmacy: [place] [id number] Active 03/13/2018 [facility] clopidogrel 75 mg oral tablet 75 mg=1 tab, PO, Daily, # 30 tab, 0 Refill(s), Pharmacy: [place] [id number] Active 03/13/2018 [facility] atorvastatin 40 mg oral tablet 40 mg=1 tab, PO, Daily, # 30 tab, 0 Refill(s), Pharmacy: [place] [id number] Active 03/13/2018 [facility] Fentanyl 25 microgram, 0.5 mL, Route: IVP, Drug form: INJ, Q4H, Dosing Weight 101.3, kg, PRN Pain Score 6-10, Priority: NOW, Start date: 03/12/18 20:17:00 CDT, Duration: 30 day, Stop date: 04/11/18 20:16:00 CDTNotes: (Same as: Sublimaze) Preservative free. No Longer Active 03/13/2018 [facility] Hydralazine 20 mg, 1 mL, Route: IV, Drug form: INJ, Q4H, Dosing Weight 101.3, kg, PRN Hypertension, Start date: 03/12/18 12:39:00 CDT, Duration: 30 day, Stop date: 04/11/18 12:38:00 CDTNotes: (Same as: Apresoline) Push over 5 minutes No Longer Active 03/12/2018 [facility] Morphine 12 mg, 6 mL, Route: PO, Drug form: SOLN, Q4H, Dosing Weight 101.3, kg, PRN Pain Score 7-10, Start date: 03/12/18 12:36:00 CDT, Duration: 30 day, Stop date: 04/11/18 12:35:00 CDTNotes: (Same as:MORPhine Sulfate) No Longer Active 03/12/2018 [facility] Nitroglycerin 0.4 mg, 1 tab, Route: SL, Drug form: TAB, Q5Min, Dosing Weight 101.3, kg, PRN Chest Pain, Start date: 03/12/18 12:36:00 CDT, Duration: 3 doses or times, Stop date: Limited # of timesNotes: (Same as:N itroquick, Nitrostat) "Do Not Crush" Sublingual tablet No Longer Active 03/12/2018 [facility] Sodium Chloride 0.9% IV 750 mL 750 mL, Rate: 75 ml/hr, Infuse over: 10 hr, Route: IV, Dosing Weight 101.3 kg, Total Volume: 750, Start date: 03/12/18 12:36:00 CDT, Duration: 10 hr, Stop date: 03/12/18 22:35:00 CDT, 2.24, m2 Inactive 03/12/2018 [facility] Mucinex 1200, PO, Daily, PRN Allergies, 0 Refill(s) No Longer Active 03/12/2018 [facility] Lisinopril 20 mg, 1 tab, Route: PO, Drug form: TAB, Daily, Dosing Weight 98.8, kg, Start date: 03/12/18 9:00:00 CDT, Duration: 30 day, Stop date: 04/10/18 9:00:00 CDTNotes: (Same as: Prinivil, Zestril) No Longer Active 03/12/2018 [facility] Citalopram 20 mg, 2 tab, Route: PO, Drug form: TAB, Daily, Dosing Weight 98.8, kg, Start date: 03/12/18 9:00:00 CDT, Duration: 30 day, Stop date: 04/10/18 9:00:00 CDT No Longer Active 03/12/2018 [facility] atorvastatin 40 mg, 1 tab, Route: PO, Drug form: TAB, Daily, Dosing Weight 98.8, kg, Start date: 03/12/18 9:00:00 CDT, Duration: 30 day, Stop date: 04/10/18 9:00:00 CDTNotes: (Same as: Lipitor) No Longer Active 03/12/2018 [facility] Aspirin 81 MG Chewable Tablet 81 mg, 1 tab, Route: PO, Drug form: CHEWTAB, Daily, Dosing Weight 98.8, kg, Start date: 03/12/18 9:00:00 CDT, Duration: 30 day, Stop date: 04/10/18 9:00:00 CDT No Longer Active 03/12/2018 [facility] clopidogrel 75 mg, 1 tab, Route: PO, Drug form: TAB, Daily, Dosing Weight 98.8, kg, Start date: 03/12/18 9:00:00 CDT, Duration: 30 day, Stop date: 04/10/18 9:00:00 CDTNotes: (Same As: Plavix) No Longer Active 03/12/2018 [facility] Aspirin 81 MG Enteric Coated Tablet 81 mg, 1 tab, Route: PO, Drug form: ECTAB, Daily, Dosing Weight 98.8, kg, Start date: 03/12/18 9:00:00 CDT, Duration: 30 day, Stop date: 04/10/18 9:00:00 CDTNotes: Do not crush or chew. (Same As: Ecotrin) No Longer Active 03/12/2018 [facility] metoprolol extended release 25 mg, 1 tab, Route: PO, Drug form: ERTAB, Daily, Start date: 03/12/18 9:00:00 CDT, Duration: 30 day, Stop date: 04/10/18 9:00:00 CDTNotes: (Same as: Toprol XL) Do Not Crush No Longer Active 03/12/2018 [facility] Terazosin 10 mg, 2 cap, Route: PO, Drug form: CAP, Bedtime, Dosing Weight 98.8, kg, Start date: 03/11/18 21:00:00 CDT, Duration: 30 day, Stop date: 04/09/18 21:00:00 CDTNotes: (Same As: Hytrin) No Longer Active 03/12/2018 [facility] Famotidine 20 mg, 1 tab, Route: PO, Drug form: TAB, Q12H, Dosing Weight 98.8, kg, Start date: 03/11/18 21:00:00 CDT, Duration: 30 day, Stop date: 04/10/18 9:00:00 CDTNotes: (Same as: Pepcid) No Longer Active 03/12/2018 [facility] heparin additive 25,000 unit [12 unit/kg/hr] + Premix Diluent Dextrose 5% 500 mL 500 mL, Rate: 19.01 ml/hr, Infuse over: 26.3 hr, Route: IV, Dosing Weight 79.2 kg, Total Volume: 500 mL, Start date: 03/11/18 17:52:00 CDT, Duration: 30 day, Stop date: 04/10/18 17:51:00 CDT, 1.98, m2 No Longer Active 03/11/2018 [facility] Heparin 30 unit/kg Bolus (Heparin Dosing Weight) Route: IVP, PRN, 2,400 unit, 2.4 mL, Drug form: INJ, PRN, Heparin Protocol, Start date: 03/11/18 17:52:00 CDT Stop date: 04/10/18 17:51:00 CDT, 30 day No Longer Active 03/11/2018 [facility] Heparin 60 unit/kg Bolus (Heparin Dosing Weight) Route: IVP, PRN, 4,800 unit, 4.8 mL, Drug form: INJ, PRN, Heparin Protocol, Start date: 03/11/18 17:52:00 CDT Stop date: 04/10/18 17:51:00 CDT, 30 day No Longer Active 03/11/2018 [facility] Alprazolam 0.5 MG Oral Tablet 0.5 mg, 1 tab, Route: PO, ONCE, Dosing Weight 98.8, kg, Start date: 03/11/18 17:35:00 CDT, Stop date: 03/11/18 17:35:00 CDT Inactive 03/11/2018 [facility] Clotrimazole 10 MG/ML Topical Cream [Lotrimin] 1 appl, Route: TOP, BID, Drug form: CRM, Start date: 03/11/18 17:00:00 CDT, Duration: 30 day, Stop date: 04/10/18 9:00:00 CDTNotes: For external use only. (Same As: Lotrimin AF, Mycelex) No Longer Active 03/11/2018 [facility] Ondansetron 4 mg, 1 tab, Route: PO, Drug form: TAB, Q8H, Dosing Weight 98.8, kg, PRN Nausea & Vomiting, Start date: 03/11/18 16:20:00 CDT, Duration: 30 day, Stop date: 04/10/18 16:19:00 CDTNotes: (Same as: Zofran) No Longer Active 03/11/2018 [facility] Morphine 4 mg, 2 mL, Route: IVP, Drug form: SOLN, Q2H, Dosing Weight 98.8, kg, PRN Pain Score 7-10, Start date: 03/11/18 16:20:00 CDT, Duration: 30 day, Stop date: 04/10/18 16:19:00 CDT No Longer Active 03/11/2018 [facility] Nitroglycerin 0.4 mg, 1 tab, Route: SL, Drug form: TAB, Q5Min, Dosing Weight 98.8, kg, PRN Chest Pain, Start date: 03/11/18 16:20:00 CDT, Duration: 3 doses or times, Stop date: Limited # of timesNotes: (Same as:Florencio Randle) "Do Not Crush" Sublingual tablet No Longer Active 03/11/2018 [facility] Sodium Chloride 0.9% IV 750 mL 750 mL, Rate: 75 ml/hr, Infuse over: 10 hr, Route: IV, Dosing Weight 98.8 kg, Total Volume: 750, Start date: 03/11/18 16:20:00 CDT, Duration: 10 hr, Stop date: 03/12/18 2:19:00 CDT, 2.21, m2 No Longer Active 03/11/2018 [facility] prasugrel 60 mg, Route: PO, Drug form: TAB, ONCE, Dosing Weight 98.8, kg, Priority: NOW, Start date: 03/11/18 16:19:00 CDT, Stop date: 03/11/18 16:19:00 CDT Inactive 03/11/2018 [facility] atorvastatin PO, Daily, 0 Refill(s) No Longer Active 03/11/2018 [facility] lisinopril 20 mg oral tablet 20 mg=1 tab, PO, Daily, 0 Refill(s) Active 03/11/2018 [facility] Clotrimazole 10 MG/ML Topical Cream [Lotrimin] 1 appl, TOP, BID, 0 Refill(s) Active 03/11/2018 [facility] Aspirin 81 MG Chewable Tablet 81 mg=1 tab, PO, Daily, tab, 0 Refill(s) Active 03/11/2018 [facility] terazosin 10 mg oral capsule 10 mg=1 cap, PO, Bedtime, 0 Refill(s) Active 03/11/2018 [facility] citalopram 40 mg oral tablet 20 mg=0.5 tab, PO, Daily, 0 Refill(s) Active 03/11/2018 [facility] Alprazolam 0.5 MG Oral Tablet 0.5 mg, 1 tab, Route: PO, Drug form: TAB, Q8Hnow, Dosing Weight 98.8, kg, Start date: 03/11/18 13:00:00 CDT, Duration: 30 day, Stop date: 04/10/18 5:00:00 CDTNotes: With food or milk (Same as: Xanax) Inactive 03/11/2018 [facility] Allergies, Adverse Reactions, Alerts Substance Category Reaction Severity Reaction type Status Date Reported Comments Source Vicodin Assertion Drug allergy Active [facility] Benadryl Assertion Vicodin Drug allergy Active [facility] Immunizations Immunization Date Given Site Status Last Updated Comments Source pneumococcal 13-valent vaccine 03/13/2018 Left Gluteus Medius completed [facility] Results Order Name Results Value Reference Range Date Interpretation Comments Source Brachial plexus wo contrast MRI Brachial plexus wo contrast MRI Study: Brachial plexus wo contrast MRI Clinical Indication: G56.01 Carpal tunnel syndrome, right upper limb - G56.01 Carpal tunnel syndrome, right upper limb Comparison: MRI cervical spine from 07/25/2018 TECHNIQUE: Multiplanar, multisequence MRI of the brachial plexus was performed without administration of intravenous gadolinium contrast. FINDINGS: Bilateral C5 through T1 nerve roots appear unremarkable with normal signal intensity. The visualized trunks and divisions are also grossly unremarkable. The anterior and middle scalene muscles appear intact. The sternocleidomastoid muscles and deltoid muscles appear unremarkable. There are no masses in the scalene triangle. There are no masses in the neural foraminal regions. The cervical spinal cord and visualized upper thoracic spinal cord shows normal signal intensity. The lung apices appear unremarkable without evidence of mass. The visualized upper mediastinum appears unremarkable. The right and left subclavian artery and vein flow-voids appear unremarkable. The jugular and carotid vascular flow- voids also appear unremarkable. The visualized bilateral shoulder girdle musculature appears unremarkable. The posterior paraspinal musculature appears unremarkable. Impression: 1. Unremarkable MRI of the brachial plexus. SL: [id number] 07/25/2018 - - Read by: Oscar Resendez MD Dictated Date/time: 07/25/18 14:08 Electronically Signed by: Oscar Resenedz MD 07/25/18 14:13 FINAL REPORT [facility] [place] Spine cervical wo contrast MRI Spine cervical wo contrast MRI Clinical Indication: G56.02 Carpal tunnel syndrome, left upper limb - G56.02 Carpal tunnel syndrome, left upper limb 68-year-old female complains of pain on the entire left side from the neck to the hand. Comparison: None TECHNIQUE: Multiplanar T1, T2, and STIR weighted MRI of the cervical spine is performed on the 1.5 Pamela magnet. FINDINGS: Sensitivity of the examination is diminished by patient motion artifact especially in the axial plane. ALIGNMENT AND GENERAL ASSESSMENT: There is normal alignment of the cervical spine. No aggressive bone marrow abnormality is present. The prevertebral soft tissues, atlanto-dental interspace and craniocervical junction are within normal limits. The facet joint alignment, spinolaminar and spinous process alignments are unremarkable. The posterior paraspinal soft tissues are unremarkable. The visualized brainstem region is unremarkable. The cervical spinal cord is normal in size and signal. DISC SPACES: C2-C3: The disc is normal. There is no central or foraminal stenosis. Mild facet arthropathies are seen. C3-C4: Mild disc space narrowing is seen. A central protrusion measures 1.5 mm in its AP dimension indenting the dural sac. No significant narrowing of the central spinal canal seen. Mild to moderate bilateral facet arthropathies are seen. The neural foramina are not well seen and moderate narrowing may be present. C4-C5: Mild to moderate disc space narrowing is seen. A central osteophyte disc protrusion measures 1 mm in its AP dimension. No significant narrowing of the central spinal canal seen. Mild facet arthropathies are seen. Mild to moderate narrowing of the neural foramina may be present. C5-C6: Moderate disc space narrowing is seen. A shallow broad-based protrusion measures 3 mm in its AP dimension. No significant narrowing of the central spinal canal seen. Mild bilateral facet arthropathies are seen. Moderate narrowing of the neural foramina seen. C6-C7: Moderate disc space narrowing is seen. A broadbase osteophyte disc protrusion measures 3 mm in its previous AP dimension centrally. No significant narrowing of the central spinal canal seen. Mild to moderate bilateral facet arthropathies are seen. Moderate to moderately advanced narrowing of the neural foramina seen. C7-T1: Mild disc space narrowing is seen. A focal osteophyte disc protrusion is seen in the left lateral recess that measures 2.5 mm in its AP dimension sulci and mild narrowing. No right and mild left narrowing of the neural foramina is seen. Moderate bilateral facet arthropathies are seen. IMPRESSION: 1. Degenerative disc disease is seen with multiple osteophyte disc complexes indenting the dural sac. 2. Multilevel facet arthropathies are seen with hypertrophy and osteophytic ridging narrowing the lateral recesses and neural foramina as described above. Activity of the examination is limited especially in the axial plane secondary to patient motion artifact. Any narrowing of the lateral recesses and neural foramina should be confirmed on CT. SL: [id number] 07/25/2018 - - Read by: Shay Leal MD Dictated Date/time: 07/25/18 12:44 Electronically Signed by: Shay Leal MD 07/25/18 12:58 [facility] [place] ELECTROLYTES AGAP 9.7 meq/L 10.0 - 20.0 03/13/2018 [facility] ELECTROLYTES eGFR 53 mL/min/1.73m2 03/13/2018 Result Comment: The eGFR is calculated using the [...] from the National Kidney Disease Education Program (NKDEP) which additionally recommends that when the eGFR is used in patients with extremes of body mass index for purposes of drug dosing, the eGFR should be multiplied by the estimated BMI. [facility] ELECTROLYTES Sodium Lvl 138 meq/L 135 - 145 03/13/2018 [facility] ELECTROLYTES CO2 24 meq/L 24 - 32 03/13/2018 [facility] ELECTROLYTES Potassium Lvl 3.7 meq/L 3.5 - 5.1 03/13/2018 [facility] ELECTROLYTES Chloride Lvl 108 meq/L 95 - 109 03/13/2018 [facility] ELECTROLYTES Calcium Lvl 7.8 mg/dL 8.5 - 10.5 03/13/2018 [facility] ELECTROLYTES Glucose Lvl 118 mg/dL 70 - 99 03/13/2018 [facility] ELECTROLYTES BUN 16 mg/dL 7 - 22 03/13/2018 [facility] ELECTROLYTES Creatinine Lvl 1.07 mg/dL 0.50 - 1.40 03/13/2018 [facility] Platelet 275 K/CMM 133 - 450 03/13/2018 [facility] RDW 13.1 % 11.5 - 14.5 03/13/2018 [facility] MPV 7.8 fL 7.4 - 10.4 03/13/2018 [facility] MCHC 36.0 g/dL 32.0 - 36.0 03/13/2018 [facility] MCV 95.3 fL 80.0 - 98.0 03/13/2018 [facility] MCH 34.3 pg 27.0 - 31.0 03/13/2018 [facility] WBC 11.4 K/CMM 3.7 - 10.4 03/13/2018 [facility] Hgb 13.3 g/dL 12.0 - 16.0 03/13/2018 [facility] Hct 36.9 % 36.0 - 48.0 03/13/2018 [facility] RBC 3.87 M/CMM 4.20 - 5.40 03/13/2018 [facility] PTT 30.7 s 22.9 - 35.8 03/13/2018 [facility] PT 12.8 s 12.0 - 14.7 03/13/2018 [facility] INR 0.96 0.85 - 1.17 03/13/2018 [facility] PTT 164.1 s 22.9 - 35.8 03/12/2018 Result Comment: Critical Result(s) called to Quita Taylor at 03/12/2018 14:34 by LINDA. Read back OK. [facility] CHEM PANEL eGFR 62 mL/min/1.73m2 03/12/2018 Result Comment: The eGFR is calculated using the [...] from the National Kidney Disease Education Program (NKDEP) which additionally recommends that when the eGFR is used in patients with extremes of body mass index for purposes of drug dosing, the eGFR should be multiplied by the estimated BMI. [facility] CHEM PANEL Total Protein 6.4 g/dL 6.4 - 8.4 03/12/2018 [facility] CHEM PANEL AGAP 11.0 meq/L 10.0 - 20.0 03/12/2018 [facility] CHEM PANEL B/C Ratio 17 6 - 25 03/12/2018 [facility] CHEM PANEL Calcium Lvl 8.1 mg/dL 8.5 - 10.5 03/12/2018 [facility] CHEM PANEL Creatinine Lvl 0.95 mg/dL 0.50 - 1.40 03/12/2018 [facility] CHEM PANEL Sodium Lvl 140 meq/L 135 - 145 03/12/2018 [facility] CHEM PANEL Potassium Lvl 4.0 meq/L 3.5 - 5.1 03/12/2018 [facility] CHEM PANEL Chloride Lvl 107 meq/L 95 - 109 03/12/2018 [facility] CHEM PANEL CO2 26 meq/L 24 - 32 03/12/2018 [facility] CHEM PANEL BUN 16 mg/dL 7 - 22 03/12/2018 [facility] CHEM PANEL Glucose Lvl 113 mg/dL 70 - 99 03/12/2018 [facility] CHEM PANEL Bili Total 0.7 mg/dL 0.2 - 1.3 03/12/2018 [facility] CHEM PANEL Alk Phos 54 unit/L 39 - 136 03/12/2018 [facility] CHEM PANEL AST 31 unit/L 0 - 37 03/12/2018 [facility] CHEM PANEL Albumin Lvl 3.3 g/dL 3.5 - 5.0 03/12/2018 [facility] CHEM PANEL Globulin 3.1 g/dL 2.7 - 4.2 03/12/2018 [facility] CHEM PANEL A/G Ratio 1.1 0.7 - 1.6 03/12/2018 [facility] CHEM PANEL ALT 49 unit/L 0 - 65 03/12/2018 [facility] HEMATOLOGY Basophils 0.5 % 0.0 - 1.0 03/12/2018 [facility] HEMATOLOGY Lymphocytes # 4.5 K/CMM 1.0 - 5.5 03/12/2018 [facility] HEMATOLOGY Segs-Bands # 6.2 K/CMM 1.5 - 8.1 03/12/2018 [facility] Monocytes 8.5 % 2.0 - 12.0 03/12/2018 [facility] Eosinophils 1.5 % 0.0 - 4.0 03/12/2018 [facility] Lymphocytes 37.5 % 20.0 - 40.0 03/12/2018 [facility] Segs 52.0 % 45.0 - 75.0 03/12/2018 [facility] Eosinophils # 0.2 K/CMM 0.0 - 0.5 03/12/2018 [facility] Monocytes # 1.0 K/CMM 0.0 - 0.8 03/12/2018 [facility] Basophils # 0.1 K/CMM 0.0 - 0.2 03/12/2018 [facility] INR 1.13 0.85 - 1.17 03/12/2018 [facility] PT 14.5 s 12.0 - 14.7 03/12/2018 [facility] PTT 47.1 s 22.9 - 35.8 03/12/2018 [facility] MPV 7.8 fL 7.4 - 10.4 03/12/2018 [facility] Platelet 298 K/CMM 133 - 450 03/12/2018 [facility] MCV 94.2 fL 80.0 - 98.0 03/12/2018 [facility] MCH 34.5 pg 27.0 - 31.0 03/12/2018 [facility] RDW 13.3 % 11.5 - 14.5 03/12/2018 [facility] MCHC 36.7 g/dL 32.0 - 36.0 03/12/2018 [facility] Hct 38.8 % 36.0 - 48.0 03/12/2018 [facility] RBC 4.12 M/CMM 4.20 - 5.40 03/12/2018 [facility] HEMATOLOGY Hgb 14.2 g/dL 12.0 - 16.0 03/12/2018 [facility] HEMATOLOGY WBC 12.0 K/CMM 3.7 - 10.4 03/12/2018 [facility] HEMATOLOGY INR 1.09 0.85 - 1.17 03/12/2018 [facility] HEMATOLOGY PT 14.1 s 12.0 - 14.7 03/12/2018 [facility] HEMATOLOGY Basophils # 0.1 K/CMM 0.0 - 0.2 03/12/2018 [facility] HEMATOLOGY Lymphocytes # 5.8 K/CMM 1.0 - 5.5 03/12/2018 [facility] HEMATOLOGY Eosinophils # 0.3 K/CMM 0.0 - 0.5 03/12/2018 [facility] HEMATOLOGY Eosinophils 2.4 % 0.0 - 4.0 03/12/2018 [facility] HEMATOLOGY Basophils 0.9 % 0.0 - 1.0 03/12/2018 [facility] HEMATOLOGY Segs-Bands # 4.9 K/CMM 1.5 - 8.1 03/12/2018 [facility] HEMATOLOGY Monocytes 9.3 % 2.0 - 12.0 03/12/2018 [facility] HEMATOLOGY Monocytes # 1.1 K/CMM 0.0 - 0.8 03/12/2018 [facility] HEMATOLOGY Segs 39.9 % 45.0 - 75.0 03/12/2018 [facility] HEMATOLOGY Lymphocytes 47.5 % 20.0 - 40.0 03/12/2018 [facility] HEMATOLOGY RDW 13.4 % 11.5 - 14.5 03/12/2018 [facility] HEMATOLOGY Platelet 316 K/CMM 133 - 450 03/12/2018 [facility] HEMATOLOGY MPV 7.8 fL 7.4 - 10.4 03/12/2018 [facility] Hgb 14.9 g/dL 12.0 - 16.0 03/12/2018 [facility] HEMATOLOGY MCH 34.2 pg 27.0 - 31.0 03/12/2018 [facility] MCHC 35.7 g/dL 32.0 - 36.0 03/12/2018 [facility] HEMATOLOGY RBC 4.35 M/CMM 4.20 - 5.40 03/12/2018 [facility] HEMATOLOGY MCV 96.0 fL 80.0 - 98.0 03/12/2018 [facility] HEMATOLOGY WBC 12.2 K/CMM 3.7 - 10.4 03/12/2018 [facility] HEMATOLOGY Hct 41.8 % 36.0 - 48.0 03/12/2018 [facility] CHEM PANEL eGFR 58 mL/min/1.73m2 03/11/2018 Result Comment: The eGFR is calculated using the [...] from the National Kidney Disease Education Program (NKDEP) which additionally recommends that when the eGFR is used in patients with extremes of body mass index for purposes of drug dosing, the eGFR should be multiplied by the estimated BMI. [facility] CHEM PANEL BUN 13 mg/dL 7 - 22 03/11/2018 [facility] CHEM PANEL Glucose Lvl 87 mg/dL 70 - 99 03/11/2018 [facility] CHEM PANEL Alk Phos 60 unit/L 39 - 136 03/11/2018 [facility] CHEM PANEL Creatinine Lvl 1.00 mg/dL 0.50 - 1.40 03/11/2018 [facility] CHEM PANEL Sodium Lvl 140 meq/L 135 - 145 03/11/2018 [facility] CHEM PANEL Chloride Lvl 107 meq/L 95 - 109 03/11/2018 [facility] CHEM PANEL CO2 24 meq/L 24 - 32 03/11/2018 [facility] CHEM PANEL Total Protein 7.0 g/dL 6.4 - 8.4 03/11/2018 [facility] CHEM PANEL Calcium Lvl 8.9 mg/dL 8.5 - 10.5 03/11/2018 [facility] CHEM PANEL Potassium Lvl 4.6 meq/L 3.5 - 5.1 03/11/2018 [facility] CHEM PANEL AST 28 unit/L 0 - 37 03/11/2018 [facility] CHEM PANEL ALT 51 unit/L 0 - 65 03/11/2018 [facility] CHEM PANEL Albumin Lvl 3.9 g/dL 3.5 - 5.0 03/11/2018 [facility] CHEM PANEL Bili Total 0.3 mg/dL 0.2 - 1.3 03/11/2018 [facility] CHEM PANEL A/G Ratio 1.3 0.7 - 1.6 03/11/2018 [facility] CHEM PANEL Globulin 3.1 g/dL 2.7 - 4.2 03/11/2018 [facility] CHEM PANEL B/C Ratio 13 6 - 25 03/11/2018 [facility] CHEM PANEL AGAP 13.6 meq/L 10.0 - 20.0 03/11/2018 [facility] HEMATOLOGY Basophils # 0.1 K/CMM 0.0 - 0.2 03/11/2018 [facility] HEMATOLOGY Monocytes # 1.0 K/CMM 0.0 - 0.8 03/11/2018 [facility] HEMATOLOGY Eosinophils # 0.3 K/CMM 0.0 - 0.5 03/11/2018 [facility] HEMATOLOGY Lymphocytes # 4.3 K/CMM 1.0 - 5.5 03/11/2018 [facility] HEMATOLOGY Eosinophils 2.8 % 0.0 - 4.0 03/11/2018 [facility] HEMATOLOGY Basophils 1.0 % 0.0 - 1.0 03/11/2018 [facility] HEMATOLOGY Segs-Bands # 5.8 K/CMM 1.5 - 8.1 03/11/2018 [facility] HEMATOLOGY Segs 50.1 % 45.0 - 75.0 03/11/2018 [facility] HEMATOLOGY Lymphocytes 37.1 % 20.0 - 40.0 03/11/2018 [facility] HEMATOLOGY Monocytes 9.0 % 2.0 - 12.0 03/11/2018 [facility] LIPIDS CHD Risk 6.91 3.90 - 5.80 03/11/2018 [facility] LIPIDS LDL (Calculated) 73 mg/dL <=99 mg/dL 03/11/2018 [facility] LIPIDS VLDL 63 03/11/2018 [facility] LIPIDS HDL 23 mg/dL >=61 mg/dL 03/11/2018 [facility] LIPIDS Trig 315 mg/dL <=149 mg/dL 03/11/2018 [facility] LIPIDS Chol 159 mg/dL <=199 mg/dL 03/11/2018 [facility] Vital Signs Vital Sign Value Date Comments Source Respitory Rate 15 03/13/2018 [facility] Temperature Oral (F) 98.6 F 03/13/2018 [facility] Systolic (mm Hg) 123 03/13/2018 [facility] Diastolic (mm Hg) 59 03/13/2018 [facility] Systolic (mm Hg) 113 03/13/2018 [facility] Diastolic (mm Hg) 74 03/13/2018 [facility] Respitory Rate 15 03/13/2018 [facility] Systolic (mm Hg) 133 03/13/2018 [facility] Diastolic (mm Hg) 69 03/13/2018 [facility] Respitory Rate 18 03/13/2018 [facility] Temperature Oral (F) 98.9 F 03/13/2018 [facility] Temperature Oral (F) 98.3 F 03/13/2018 [facility] Weight 101.3 03/12/2018 [facility] Height 173.99 cm 03/12/2018 [facility] BMI Calculated 33.46 03/12/2018 [facility] Height 175.2 cm 03/11/2018 [facility] BMI Calculated 32.19 03/11/2018 [facility] Weight 98.8 03/11/2018 [facility] Encounters Location Location Details Encounter Type Encounter Number Reason For Visit Attending Provider ADM Date DC Date Status Source OD [id number] 490 - BRONCHITIS NOS WILBERT CHAVES 08/29/2012 Active [facility] [place] [facility] Observation [id number] Ye Thomas 03/12/2018 03/13/2018 [facility] Procedures Procedure Code Date Perfomer Comments Source Bilateral inguinal hernia repair [id number] [facility] Cervical laminectomy [id number] [facility]
--- NOTE | 2018-12-24 14:00 | NUR ---
1400 dc home has copies of POC and Rx. 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 iv removed site w/o s/s infiltration. rt vascade site dry and intact w/o s/s hematoma. To car per wc escorted by [facility] employee. gary Addendum: 12/24/18 at 1930 by Gertrude Pfeiffer RN 1600 dc home stable vs and site iv removed as ordered. 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
--- NOTE | 2018-12-24 14:01 | NUR ---
1401pm Received pt to rm #19 Identifier 2. Resp regular sat 97%sat. back to baseline orientation. iv infusing well w/o s/s infiltration [facility] Dr Thomas no fix. for re-ck 2wks Has dc papers and followup care. Abdomen soft and non tender denies necessity to defecate or urinate. Bilateral femoral pulses present x4PD/Dp. Tray order pt does tolerate po intake. at bedside. ds/rn
--- NOTE | 2018-12-24 17:57 | Operative Report ---
DATE OF PROCEDURE: 12/24/2018 SURGEON: Ye Thomas MD INDICATION: Coronary artery disease, abnormal stress test. PROCEDURES PERFORMED: 1. Left heart catheterization, selective coronary angiography. 2. Attempt and aborted intervention with stent placement to a chronic total occlusion of the right coronary artery. 3. Deployment of right groin Vascade closure device. COMPLICATIONS: None. RECOMMENDATIONS: Aggressive medical therapy including cardiac rehab, external counterpulsation. If continues to have angina, consider single-vessel coronary artery bypass surgery. BLOOD LOSS: 5 mL. DESCRIPTION OF PROCEDURE: Access obtained in the right femoral artery. A 6-Scottish sheath was placed. Diagnostic coronary angiogram revealed mild disease in the left main, left anterior descending and circumflex coronary arteries of less than 20% luminal stenosis. Right coronary artery, multiple stents noted, 95% stenosis in the proximal stent, distally the stent was completely occluded. Grade 4 collateral filled left coronary system. A decision was made to attempt intervention in the right coronary artery. The patient received 10,000 units of intravenous heparin. The right coronary artery was cannulated using a JR4 6-Scottish guiding catheter along with a GuideLiner. Using a Whisper wire and a support balloon, attempts were made to cross the chronic total occlusion; however, these attempts were failed. The lesion was unable to be crossed. Procedure was aborted. Right groin repaired using Vascade closure device. The patient discharged home same day. Ye Thomas MD KSB/MODL /[id number]
== END | disposition home or self-care (01) ==
LOC: CATH LAB 11:53
PROVIDERS: ATTEND Internal Medicine Interventional Cardiology
DX: I25.119 Atherosclerotic heart disease of native coronary artery with unspecified angina pectoris (principal); I25.82 Chronic total occlusion of coronary artery; R94.39 Abnormal result of other cardiovascular function study; Z95.5 Presence of coronary angioplasty implant and graft; Z01.812 Encounter for preprocedural laboratory examination; Z79.02 Long term (current) use of antithrombotics/antiplatelets; Z79.82 Long term (current) use of aspirin
CPT/HCPCS: 93454; C9607; 36415; 80053; 85025; 92920; 93458; C1725; C1760; C1769; J1644; J2001; J2250; J2720; J7030; Q9967

== ENCOUNTER → 2019-06-02 | Outpatient (CLI) | payer MEDICARE, OTHER ==
[~2019-06-02] MED LIST changes: -ATROPINE SULFATE 0.1 MG/ML 10ML SYR ONE; -FENTANYL CITRATE/PF 100MCG/2 ML INJ ONE; -HEPARIN SOD (PORCINE) 1000 UNIT/ML 30ML ONE; -HEPARIN SOD/SOD CHLORIDE 2,000 ML ONE; -IOPAMIDOL 370 MG/ML 200 ML INFUS..BTL INJ ONE; -LIDOCAINE HCL 1% LOCAL INJ 20 ML VIAL ONE; -MIDAZOLAM HCL 2 MG/2 ML VIAL ONE; -PROTAMINE SULFATE 10 MG/ML 5 ML VIAL ONE; -SODIUM CHLORIDE 0.9% 1000ML 1,000 ML ONE; -SODIUM CHLORIDE 0.9% 50ML 50 ML ONE
--- NOTE | 2019-06-02 10:54 | Diagnostic Imaging Report ---
Exam: KUB - 2 views Clinical History: Renal calculi Comparison: None Findings: No radiographically apparent urinary calculi. Nonobstructive bowel gas pattern. Phleboliths and surgical clips in the pelvis. The osseous structures appear unremarkable. Degenerative changes of the lower lumbar spine. Impression: No radiographically apparent renal calculi. Signed by: Nazario Guevara MD on 06/02/2019 10:51 AM
== END ==
LOC: RAD 10:03
PROVIDERS: ATTEND Urology
DX: N20.0 Calculus of kidney (principal)
CPT/HCPCS: 74018

== ENCOUNTER → 2020-01-30 | Outpatient (CLI) | payer MEDICARE, OTHER ==
[~2020-01-30] VITALS: Ht 174 cm; Wt 85.7 kg
[~2020-01-30] MED LIST changes: +ATORVASTATIN CA20 MG PO; +RANEXA500 MG PO
--- NOTE | 2020-01-30 10:45 | NUR ---
Checked patient's temperature via skin probe: 97.5F. Patient denies being out of the country or out of the state in the last 14 days. Patient denies being around anyone who has been out of the country or state in the last 14 days. Patient denies being around anyone who has been exposed or diagnosed with COVID-19 in the last 14 days. Patient denies fever, cough, or shortness of breath within the last 14 days.
[2020-01-30 11:38] LABS: BASOPHILS # (AUTO) 0.1 (0.0-0.1); BASOPHILS % 0.5 % (0.0-1.0); EOSINOPHILS # (AUTO) 0.2 (0.0-0.4); EOSINOPHILS % 1.9 % (0.0-6.0); HEMOGLOBIN 14.7 g/dL (14.0-18.0); LYMPHOCYTES # (AUTO) 3.8 (1.0-3.2); MEAN CORPUSCULAR HEMOGLOBIN 33.7 pg (28-32); MEAN CORPUSCULAR HGB CONC 36.8 g/dL (31-35); MEAN CORPUSCULAR VOLUME 91.7 fL (81-99); NEUTROPHILS # (AUTO) 6.1 (2.1-6.9); NEUTROPHILS % 54.2 % (38.7-80.0); PLATELET COUNT 378 x10e3/uL (140-360); RED BLOOD COUNT 4.36 x10e6/uL (4.3-5.7)
[2020-01-30 12:03] LABS: ALANINE AMINOTRANSFERASE 24 IU/L (0-55); ALBUMIN 3.9 g/dL (3.5-5.0); ALBUMIN/GLOBULIN RATIO 1.3 (0.8-2.0); ALKALINE PHOSPHATASE 83 IU/L (40-150); ANION GAP 10.4 mmol/L (8-16); BLOOD UREA NITROGEN 8 mg/dL (7-26); BUN/CREATININE RATIO 11 (6-25); CALCIUM 9.1 mg/dL (8.4-10.2); CARBON DIOXIDE 27 mmol/L (22-29); CHLORIDE 105 mmol/L (98-107); CREATININE, SERUM 0.76 mg/dL (0.72-1.25); EST GLOMERULAR FILTRATION RATE > 60 ML/MIN (60-); GLUCOSE 97 mg/dL (74-118); POTASSIUM 4.4 mmol/L (3.5-5.1); SODIUM 138 mmol/L (136-145)
== END ==
LOC: LAB 05:00 → CATH LAB 10:29 → EDSTATUS 02-05 14:06
PROVIDERS: ATTEND Internal Medicine Interventional Cardiology
DX: Z01.812 Encounter for preprocedural laboratory examination (principal); Z53.9 Procedure and treatment not carried out, unspecified reason
CPT/HCPCS: 36415; 80053; 85025

== ENCOUNTER → 2020-02-04 | Day surgery (SDC) | payer MEDICARE, OTHER ==
[2020-02-04] VITALS (7 sets, daily range): BP systolic 109–144; BP diastolic 67–79
[~2020-02-04] VITALS: Ht 174 cm; Wt 85.7 kg
[~2020-02-04] MED LIST changes: +ATROPINE SULFATE 0.1 MG/ML 10ML SYR ONE; +FENTANYL CITRATE/PF 100MCG/2 ML INJ ONE; +HEPARIN SOD (PORCINE) 1000 UNIT/ML 30ML ONE; +HEPARIN SOD/SOD CHLORIDE 2,000 ML ONE; +IOPAMIDOL 370 MG/ML 200 ML INFUS..BTL INJ ONE; +LIDOCAINE HCL 2% LOCAL 20 ML VIAL ONE; +MIDAZOLAM HCL 2 MG/2 ML VIAL ONE; +NITROGLYCERIN/D5W 200 MCG/ML 0 ML ONE; +SODIUM CHLORIDE 0.9% 1000ML 1,000 ML ONE
--- NOTE | 2020-02-04 11:40 | NUR ---
1140 Olga Rn prep pt received in rm #9. No gross issues pain,pallor, pressure or dysrhythmia.(Sinus Omid)[facility], DR. Thomas ,Groin approach.Angina and CAD HX. No pre-ops ordered Started iv left hand by ds/rn x1 stick NO infiltration Site secured and flushed. Pt left in room awaiting procedural table time. Side rails up call light at bedside and bed in low position. remains at bedside. jimmy/rn
--- NOTE | 2020-02-04 12:00 | NUR ---
1200 Prep per Olga DELVALLE No gross issues pain,pallor For [facility] Dr Martha MOORE Angina.Allergy band applied.Nereyda Panchal , at bedside.Iv started per Lizbeth Delvalle x1 stick #20. Preop meds given at 1227. Side rails up ,call light at bedside. Bed in low position requested to call for assistance.gary Addendum: 02/04/20 at 1613 by Gertrude Pfeiffer RN PLEASE DISREGARD DOCUMENTATION WRONG PT gary
--- NOTE | 2020-02-04 13:44 | NUR ---
1344 Received pt to room #9,bedside report received from Lizbeth DELVALLE. Alert oriented and appropriate, PERRLA, respirations even and unlabored to room air. Pulses x4 extremities equal and strong. Pedal pulses PT/DP X4 and marked. Cap fill brisk < 3 sec. Rt Mynx site NO gross issues pain,pallor,pressure or dysrhythmia sinus mabel. Skin warm and dry integrity appears . IV 20g left hand, presents healthy w/o s/s of infiltration or complaint. Abdomen soft and supple. pt offered toileting, denies need to urinate or defecate. No personal affects with patient. Family at bedside. Pt and family verbalizes understanding of POC. Currently w/o complaint of pain or need. ds/rn
--- NOTE | 2020-02-04 13:45 | NUR ---
1345p Pt meets DC criteria. Rt TR band assessed for s/s of complication and presence of hematoma. warm, dry, no discolor, and pulses present. IV removed from left forearm. Distal tip appears intact. VS WNL. Pt denies pain, sob, or need at this time. Family at bedside. Review of discharge paperwork and follow up instructions. verbalized understanding. Pt to wheelchair and transported to front [facility]. Transferred to private vehicle under own strength w/o incident with DC paperwork in hand. - jimmy/graham Addendum: 02/04/20 at 1620 by Gertrude Pfeiffer RN [id number] amend documentation/wrong pt. Pt meets DC criteria. Rt Mynx assessed for s/s of complication and presence of hematoma. Skinwarm, dry, no discolor, and pulses present. IV removed from left hand , Distal tip appears intact. VS WNL. Pt denies pain, sob, or need at this time. Family/ at bedside. Review of discharge paperwork and follow up instructions. back to baseline orientation,verbalized understanding. Tolerating po intake and denies pain or discomfort.Pt to wheelchair and transported to front [facility]. Transferred to private vehicle under own strength w/o incident with DC paperwork in hand. - jimmy/hiren
--- NOTE | 2020-02-04 15:30 | NUR ---
1530p Pt meets DC criteria. Rt Mynx site assessed for s/s of complication and presence of hematoma. Skin warm, dry, no discolor, and pulses present. IV removed from left hand. Distal tip appears intact. VS WNL. Pt denies pain, sob, or need at this time. Family at BS. Review of discharge paperwork and follow up instructions. verbalized understanding.Back to baseline Orientation. Tolerating po intake. Pt to wheelchair and transported to front of hospital. Transferred to private vehicle under own strength w/o incident with DC paperwork in hand. - ds/rn
--- NOTE | 2020-02-04 19:56 | Operative Report ---
DATE OF PROCEDURE: 02/04/2020 SURGEON: Ye Thomas MD INDICATIONS: Coronary artery disease, unstable angina, urgent procedures with abnormal stress test. PROCEDURES PERFORMED: 1. Left heart catheterization, selective coronary angiography. 2. Deployment of right groin Mynx closure device. 3. Conscious sedation administration. 4. Hemodynamic and neurological monitoring and recovery by cath lab nurse RN and supervision by MD for 35 minutes. COMPLICATIONS: None. RECOMMENDATIONS: Aggressive medical therapy including external counterpulsation. DESCRIPTION OF PROCEDURE: Access obtained in the right femoral artery. A 6-Greenlandic sheath was placed. Right coronary artery stents were completely occluded. The left main 20% to 30% stenosis circumflex and left anterior descending artery mild 10% to 20% stenosis. Grade 4 collaterals from the left coronary system to the right posterior descending artery which were vastly improved from previous angiography a year ago. LV end-diastolic pressure of 10. No gradient across the aortic valve on pullback. Right groin repaired using Mynx closure device. The patient discharged to home same day. Ye Thomas MD KSB/MODL /[id number]
== END | disposition home or self-care (01) ==
LOC: CATH LAB 11:11
PROVIDERS: ATTEND Internal Medicine Interventional Cardiology
DX: I25.110 Atherosclerotic heart disease of native coronary artery with unstable angina pectoris (principal); R94.39 Abnormal result of other cardiovascular function study; Z95.5 Presence of coronary angioplasty implant and graft; I10 Essential (primary) hypertension; E78.5 Hyperlipidemia, unspecified; Z88.6 Allergy status to analgesic agent; Z88.8 Allergy status to other drugs, medicaments and biological substances; Z79.82 Long term (current) use of aspirin; Z79.02 Long term (current) use of antithrombotics/antiplatelets
CPT/HCPCS: 93458; C1760; J1644; J2250; J3010; J7030; Q9967; 37253; 99152; 99153; J2001

== ENCOUNTER 2020-03-22 00:33 | Inpatient (IN) | payer MEDICARE, OTHER ==
[~2020-03-22] VITALS: Ht 174 cm; Wt 85.7 kg
[~2020-03-22 00:33] MED LIST changes: -ATROPINE SULFATE 0.1 MG/ML 10ML SYR ONE; -FENTANYL CITRATE/PF 100MCG/2 ML INJ ONE; -HEPARIN SOD (PORCINE) 1000 UNIT/ML 30ML ONE; -HEPARIN SOD/SOD CHLORIDE 2,000 ML ONE; -IOPAMIDOL 370 MG/ML 200 ML INFUS..BTL INJ ONE; -LIDOCAINE HCL 2% LOCAL 20 ML VIAL ONE; -MIDAZOLAM HCL 2 MG/2 ML VIAL ONE; -NITROGLYCERIN/D5W 200 MCG/ML 0 ML ONE; -SODIUM CHLORIDE 0.9% 1000ML 1,000 ML ONE
--- OUTSIDE RECORDS SUMMARY | 2020-03-22 00:38 | XMS REPORT | Continuity of Care Document ---
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 Role Phone [employer] Unavailable Un available Problems Problem Status Onset Date Classification Date Reported Comments Source Carpal tunnel syndrome, left upper limb 07/31/2018 02/11/2019 [facility] HEART CATH Active 03/07/2018 [facility] CAD(CORONARY ARTERY DISEASE) A ctive 03/07/2018 [facility] 490 - BRONCHITIS NOS Active 08/29/2012 [facility] [place] Carpal tunnel syndrome, right upper limb 02/11/2019 [facility] Other cervical disc degeneration, unspec ified cervical region 02/11/2019 [facility] Osteophyte, vertebrae 02/11/2019 [facility] Other specific arthropathies, 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, vertebrae 02/11/2019 [facility] ATHSCL HEART DISEASE OF [place] CORONARY Active [facility] Medications Medication Details Route Status Patient Instructions Ordering Provider Order Date Source metoprolol 25 mg oral tablet, extended release 25 mg = 1 tab, PO, Daily, # 30 tab, 0 Refill(s), Pharmacy: [facility] [id number] Active 03/13/2018 [facility] clopidogrel 75 mg oral tablet 75 mg = 1 tab, PO, Daily, # 30 tab, 0 Refill(s), Pharmacy: [facility] [id number] Active 03/13/2018 [facility] atorvastatin 40 mg oral tablet 40 mg = 1 tab, PO, Daily, # 30 tab, 0 Refill(s), Pharmacy: [facility] [id number] Active 03/13/2018 [facility] Fentanyl Notes: (Same as: Subl imaze) Preservative free. No Longer Active 03/13/2018 [facility] Hydralazine Notes: (Same as: A presoline) Push over 5 minutes No Longer Active 03/12/2018 [facility] Morphine Notes: (Same as:MORPh ine Sulfate) No Longer Active 03/12/2018 [facility] Nitroglycerin Notes: (Same as: Nitroquick, Nitrostat) "Do Not Crush" Sublingual tablet No Longer Active 03/12/2018 [facility] Sodium Chloride 0.9% IV 750 mL 750 mL, Rate: 75 ml/hr, Infuse over: 10 hr, Route: IV, Dosing Weight 101.3 kg, Total Volume: 750, Start date: 03/12/18 12:36:00 CDT, Duration: 10 hr, Stop date: 03/12/18 22:35:00 CDT, 2.24, m2 Inactive 03/12/2018 [facility] Mucinex 1200, PO, Daily, PRN A llergies, 0 Refill(s) No Longer Active 03/12/2018 [facility] Lisinopril Notes: (Same as: Pr inivil, Zestril) No Longer Active 03/12/2018 [facility] Citalopram 20 mg, 2 tab, Route : PO, Drug form: TAB, Daily, Dosing Weight 98.8, kg, Start date: 03/12/18 9:00:00 CDT, Duration: 30 day, Stop date: 04/10/18 9:00:00 CDT No Longer Active 03/12/2018 [facility] atorvastatin Notes: (Same as: Lipitor) No Longer Active 03/12/2018 [facility] Aspirin 81 MG Chewable Tablet 81 mg, 1 tab, Route: PO, Drug form: CHEWTAB, Daily, Dosing Weight 98.8, kg, Start date: 03/12/18 9:00:00 CDT, Duration: 30 day, Stop date: 04/10/18 9:00:00 CDT No Longer Active 03/12/2018 [facility] clopidogrel Notes: (Same As: P lavix) No Longer Active 03/12/2018 [facility] Aspirin 81 MG Enteric Coated Tablet Notes: Do not crush or chew. (Same As: Ecotrin) No Longer Active 03/12/2018 [facility] metoprolol extended release No hrial: (Same as: Toprol XL) Do Not Crush No Longer Active 03/12/2018 [facility] Terazosin Notes: (Same As: Hyt rin) No Longer Active 03/12/2018 [facility] Famotidine Notes: (Same as: Pe pcid) No Longer Active 03/12/2018 [facility] heparin additive 25,000 unit [12 unit/kg /hr] + Premix Diluent Dextrose 5% 500 mL 500 mL, Rate: 19.01 ml/hr, Infuse over: 26.3 hr, Route: IV, Dosing Weight 79.2 kg, Total Volume: 500 mL, Start date: 03/11/18 17:52:00 CDT, Duration: 30 day, Stop date: 04/10/18 17:51:00 CDT, 1.98, m2 No Longer Active 03/11/2018 [facility] Heparin 30 unit/kg Bolus (Heparin Dosing Weight) Route: IVP, PRN, 2,400 unit, 2.4 mL, Drug form: INJ, PRN, Heparin Protocol, Start date: 03/11/18 17:52:00 CDT Stop date: 04/10/18 17:51:00 CDT, 30 day No Longer Active 03/11/2018 [facility] Heparin 60 unit/kg Bolus (Heparin Dosing Weight) Route: IVP, PRN, 4,800 unit, 4.8 mL, Drug form: INJ, PRN, Heparin Protocol, Start date: 03/11/18 17:52:00 CDT Stop date: 04/10/18 17:51:00 CDT, 30 day No Longer Active 03/11/2018 [facility] Alprazolam 0.5 MG Oral Tablet 0.5 mg, 1 tab, Route: PO, ONCE, Dosing Weight 98.8, kg, Start date: 03/11/18 17:35:00 CDT, Stop date: 03/11/18 17:35:00 CDT Inactive 03/11/2018 [facility] Clotrimazole 10 MG/ML Topical Cream [Lotrimin] Notes: For external use only. (Same As: Lotrimin AF, Mycelex) No Longer Active 03/11/2018 [facility] Ondansetron Notes: (Same as: Z conchita) No Longer Active 03/11/2018 [facility] Morphine 4 mg, 2 mL, Route: IV P, Drug form: SOLN, Q2H, Dosing Weight 98.8, kg, PRN Pain Score 7-10, Start date: 03/11/18 16:20:00 CDT, Duration: 30 day, Stop date: 04/10/18 16:19:00 CDT No Longer Active 03/11/2018 [facility] Nitroglycerin Notes: (Same as: Nitroquick, Nitrostat) "Do Not Crush" Sublingual tablet No Longer Active 03/11/2018 [facility] Sodium Chloride 0.9% IV 750 mL 750 mL, Rate: 75 ml/hr, Infuse over: 10 hr, Route: IV, Dosing Weight 98.8 kg, Total Volume: 750, Start date: 03/11/18 16:20:00 CDT, Duration: 10 hr, Stop date: 03/12/18 2:19:00 CDT, 2.21, m2 No Longer Active 03/11/2018 [facility] prasugrel 60 mg, Route: PO, Dr ug form: TAB, ONCE, Dosing Weight 98.8, kg, Priority: NOW, Start date: 03/11/18 16:19:00 CDT, Stop date: 03/11/18 16:19:00 CDT Inactive 03/11/2018 [facility] atorvastatin PO, Daily, 0 Refi ll(s) No Longer Active 03/11/2018 [facility] lisinopril 20 mg oral tablet 2 0 mg = 1 tab, PO, Daily, 0 Refill(s) Active 03/11/2018 [facility] Clotrimazole 10 MG/ML Topical Cream [Lotrimin] 1 appl, TOP, BID, 0 Refill(s) Active 03/11/2018 [facility] Aspirin 81 MG Chewable Tablet 81 mg = 1 tab, PO, Daily, tab, 0 Refill(s) Active 03/11/2018 [facility] terazosin 10 mg oral capsule 1 0 mg = 1 cap, PO, Bedtime, 0 Refill(s) Active 03/11/2018 [facility] citalopram 40 mg oral tablet 2 0 mg = 0.5 tab, PO, Daily, 0 Refill(s) Active 03/11/2018 [facility] Alprazolam 0.5 MG Oral Tablet Notes: With food or milk (Same as: Xanax) Inactive 03/11/2018 [facility] Allergies, Adverse Reactions, Alerts Substance Category Reaction Severity Reaction type Status Date Reported Comments Source Vicodin Assertion Drug allergy Active [facility] Benadryl Assertion Vicodin Drug allergy Active [facility] Immunizations Immunization Date Given Site Status Last Updated Comments Source pneumococcal 13-valent vaccine 03/13/2018 Left Gluteus Medius completed Brandon Betzy theast, [facility] Results Order Name Results Value Reference Range Date Interpretation Comments Source ELECTROLYTES AGAP 9.7 10.0 - 20.0 03/13/2018 [facility] ELECTROLYTES eGFR 53 03/13/2018 Result Comment: The eGFR is calculated [...] should be multiplied by the estimated BMI. [facility] ELECTROLYTES Sodium Lvl 138 135 - 145 03/13/2018 [facility] ELECTROLYTES CO2 24 24 - 32 03/13/2018 [facility] ELECTROLYTES Potassium Lvl 3.7 3.5 - 5.1 03/13/2018 [facility] ELECTROLYTES Chloride Lvl 108 95 - 109 03/13/2018 [facility] ELECTROLYTES Calcium Lvl 7.8 8.5 - 10.5 03/13/2018 [facility] ELECTROLYTES Glucose Lvl 118 70 - 99 03/13/2018 [facility] ELECTROLYTES BUN 16 7 - 22 03/13/2018 [facility] ELECTROLYTES Creatinine Lvl 1.0 7 0.50 - 1.40 03/13/2018 [facility] HEMATOLOGY Platelet 275 133 - 450 03/13/2018 [facility] HEMATOLOGY RDW 13.1 11.5 - 14.5 03/13/2018 [facility] HEMATOLOGY MPV 7.8 7.4 - 10.4 03/13/2018 [facility] HEMATOLOGY MCHC 36.0 32.0 - 36.0 03/13/2018 [facility] HEMATOLOGY MCV 95.3 80.0 - 98.0 03/13/2018 [facility] MCH 34.3 27.0 - 31.0 03/13/2018 [facility] HEMATOLOGY WBC 11.4 3.7 - 10.4 03/13/2018 [facility] Hgb 13.3 12.0 - 16.0 03/13/2018 [facility] HEMATOLOGY Hct 36.9 36.0 - 48.0 03/13/2018 [facility] HEMATOLOGY RBC 3.87 4.20 - 5.40 03/13/2018 [facility] HEMATOLOGY PTT 30.7 22.9 - 35.8 03/13/2018 [facility] HEMATOLOGY PT 12.8 12.0 - 14.7 03/13/2018 [facility] HEMATOLOGY INR 0.96 0.85 - 1.17 03/13/2018 [facility] HEMATOLOGY PTT 164.1 22.9 - 35.8 03/12/2018 Result Comment: Critical Result(s) saeed samir Taylor at 03/12/2018 14:34 by LINDA. Read back OK. [facility] CHEM PANEL eGFR 62 03/12/2018 Result Comment: The eGFR is calculated [...] should be multiplied by the estimated BMI. [facility] CHEM PANEL Total Protein 6.4 6.4 - 8.4 03/12/2018 [facility] CHEM PANEL AGAP 11.0 10.0 - 20.0 03/12/2018 [facility] CHEM PANEL B/C Ratio 17 6 - 25 03/12/2018 [facility] CHEM PANEL Calcium Lvl 8.1 8.5 - 10.5 03/12/2018 [facility] CHEM PANEL Creatinine Lvl 0.95 0.50 - 1.40 03/12/2018 [facility] CHEM PANEL Sodium Lvl 140 135 - 145 03/12/2018 [facility] CHEM PANEL Potassium Lvl 4.0 3.5 - 5.1 03/12/2018 [facility] CHEM PANEL Chloride Lvl 107 95 - 109 03/12/2018 [facility] CHEM PANEL CO2 26 24 - 32 03/12/2018 [facility] CHEM PANEL BUN 16 7 - 22 03/12/2018 [facility] CHEM PANEL Glucose Lvl 113 70 - 99 03/12/2018 [facility] CHEM PANEL Bili Total 0.7 0.2 - 1.3 03/12/2018 [facility] CHEM PANEL Alk Phos 54 39 - 136 03/12/2018 [facility] CHEM PANEL AST 31 0 - 37 03/12/2018 [facility] CHEM PANEL Albumin Lvl 3.3 3.5 - 5.0 03/12/2018 [facility] CHEM PANEL Globulin 3.1 2.7 - 4.2 03/12/2018 [facility] CHEM PANEL A/G Ratio 1.1 0.7 - 1.6 03/12/2018 [facility] CHEM PANEL ALT 49 0 - 65 03/12/2018 [facility] HEMATOLOGY Basophils 0.5 0.0 - 1.0 03/12/2018 [facility] HEMATOLOGY Lymphocytes # 4.5 1.0 - 5.5 03/12/2018 [facility] HEMATOLOGY Segs-Bands # 6.2 1.5 - 8.1 03/12/2018 [facility] HEMATOLOGY Monocytes 8.5 2.0 - 12.0 03/12/2018 [facility] HEMATOLOGY Eosinophils 1.5 0.0 - 4.0 03/12/2018 [facility] HEMATOLOGY Lymphocytes 37.5 20.0 - 40.0 03/12/2018 [facility] HEMATOLOGY Segs 52.0 45.0 - 75.0 03/12/2018 [facility] HEMATOLOGY Eosinophils # 0.2 0.0 - 0.5 03/12/2018 [facility] HEMATOLOGY Monocytes # 1.0 0.0 - 0.8 03/12/2018 [facility] HEMATOLOGY Basophils # 0.1 0.0 - 0.2 03/12/2018 [facility] HEMATOLOGY INR 1.13 0.85 - 1.17 03/12/2018 [facility] HEMATOLOGY PT 14.5 12.0 - 14.7 03/12/2018 [facility] HEMATOLOGY PTT 47.1 22.9 - 35.8 03/12/2018 [facility] HEMATOLOGY MPV 7.8 7.4 - 10.4 03/12/2018 [facility] HEMATOLOGY Platelet 298 133 - 450 03/12/2018 [facility] HEMATOLOGY MCV 94.2 80.0 - 98.0 03/12/2018 [facility] HEMATOLOGY MCH 34.5 27.0 - 31.0 03/12/2018 [facility] HEMATOLOGY RDW 13.3 11.5 - 14.5 03/12/2018 [facility] HEMATOLOGY MCHC 36.7 32.0 - 36.0 03/12/2018 [facility] HEMATOLOGY Hct 38.8 36.0 - 48.0 03/12/2018 [facility] HEMATOLOGY RBC 4.12 4.20 - 5.40 03/12/2018 [facility] HEMATOLOGY Hgb 14.2 12.0 - 16.0 03/12/2018 [facility] HEMATOLOGY WBC 12.0 3.7 - 10.4 03/12/2018 [facility] HEMATOLOGY INR 1.09 0.85 - 1.17 03/12/2018 [facility] HEMATOLOGY PT 14.1 12.0 - 14.7 03/12/2018 [facility] HEMATOLOGY Basophils # 0.1 0.0 - 0.2 03/12/2018 [facility] HEMATOLOGY Lymphocytes # 5.8 1.0 - 5.5 03/12/2018 [facility] HEMATOLOGY Eosinophils # 0.3 0.0 - 0.5 03/12/2018 [facility] HEMATOLOGY Eosinophils 2.4 0.0 - 4.0 03/12/2018 [facility] HEMATOLOGY Basophils 0.9 0.0 - 1.0 03/12/2018 [facility] HEMATOLOGY Segs-Bands # 4.9 1.5 - 8.1 03/12/2018 [facility] HEMATOLOGY Monocytes 9.3 2.0 - 12.0 03/12/2018 [facility] HEMATOLOGY Monocytes # 1.1 0.0 - 0.8 03/12/2018 [facility] HEMATOLOGY Segs 39.9 45.0 - 75.0 03/12/2018 [facility] HEMATOLOGY Lymphocytes 47.5 20.0 - 40.0 03/12/2018 [facility] HEMATOLOGY RDW 13.4 11.5 - 14.5 03/12/2018 [facility] HEMATOLOGY Platelet 316 133 - 450 03/12/2018 [facility] HEMATOLOGY MPV 7.8 7.4 - 10.4 03/12/2018 [facility] HEMATOLOGY Hgb 14.9 12.0 - 16.0 03/12/2018 [facility] HEMATOLOGY MCH 34.2 27.0 - 31.0 03/12/2018 [facility] MCHC 35.7 32.0 - 36.0 03/12/2018 [facility] HEMATOLOGY RBC 4.35 4.20 - 5.40 03/12/2018 [facility] HEMATOLOGY MCV 96.0 80.0 - 98.0 03/12/2018 [facility] HEMATOLOGY WBC 12.2 3.7 - 10.4 03/12/2018 [facility] HEMATOLOGY Hct 41.8 36.0 - 48.0 03/12/2018 [facility] CHEM PANEL eGFR 58 03/11/2018 Result Comment: The eGFR is calculated [...] should be multiplied by the estimated BMI. [facility] CHEM PANEL BUN 13 7 - 22 03/11/2018 [facility] CHEM PANEL Glucose Lvl 87 70 - 99 03/11/2018 [facility] CHEM PANEL Alk Phos 60 39 - 136 03/11/2018 [facility] CHEM PANEL Creatinine Lvl 1.00 0.50 - 1.40 03/11/2018 [facility] CHEM PANEL Sodium Lvl 140 135 - 145 03/11/2018 [facility] CHEM PANEL Chloride Lvl 107 95 - 109 03/11/2018 [facility] CHEM PANEL CO2 24 24 - 32 03/11/2018 [facility] CHEM PANEL Total Protein 7.0 6.4 - 8.4 03/11/2018 [facility] CHEM PANEL Calcium Lvl 8.9 8.5 - 10.5 03/11/2018 [facility] CHEM PANEL Potassium Lvl 4.6 3.5 - 5.1 03/11/2018 [facility] CHEM PANEL AST 28 0 - 37 03/11/2018 [facility] CHEM PANEL ALT 51 0 - 65 03/11/2018 [facility] CHEM PANEL Albumin Lvl 3.9 3.5 - 5.0 03/11/2018 [facility] CHEM PANEL Bili Total 0.3 0.2 - 1.3 03/11/2018 [facility] CHEM PANEL A/G Ratio 1.3 0.7 - 1.6 03/11/2018 [facility] CHEM PANEL Globulin 3.1 2.7 - 4.2 03/11/2018 [facility] CHEM PANEL B/C Ratio 13 6 - 25 03/11/2018 [facility] CHEM PANEL AGAP 13.6 10.0 - 20.0 03/11/2018 [facility] HEMATOLOGY Basophils # 0.1 0.0 - 0.2 03/11/2018 [facility] HEMATOLOGY Monocytes # 1.0 0.0 - 0.8 03/11/2018 [facility] HEMATOLOGY Eosinophils # 0.3 0.0 - 0.5 03/11/2018 [facility] HEMATOLOGY Lymphocytes # 4.3 1.0 - 5.5 03/11/2018 [facility] HEMATOLOGY Eosinophils 2.8 0.0 - 4.0 03/11/2018 [facility] HEMATOLOGY Basophils 1.0 0.0 - 1.0 03/11/2018 [facility] Segs-Bands # 5.8 1.5 - 8.1 03/11/2018 [facility] HEMATOLOGY Segs 50.1 45.0 - 75.0 03/11/2018 [facility] Lymphocytes 37.1 20.0 - 40.0 03/11/2018 [facility] Monocytes 9.0 2.0 - 12.0 03/11/2018 [facility] LIPIDS CHD Risk 6.91 3.90 - 5.80 03/11/2018 [facility] LIPIDS LDL (Calculated) 73 <=99 mg/dL 03/11/2018 [facility] LIPIDS VLDL 63 03/11/2018 [facility] LIPIDS HDL 23 >=61 mg/dL 03/11/2018 [facility] LIPIDS Trig 315 <=149 mg/dL 03/11/2018 [facility] LIPIDS Chol 159 <=199 mg/dL 03/11/2018 [facility] Pathology Reports No Data Provided for This Section Diagnostic Reports Report Value Date Source Brachial plexus wo contrast MRI Study: Brachial [...] Impression: 1. Unremarkable MRI of the brachial plex us. SL: [id number] 07/25/2018 [facility] cervical wo contrast MRI Clinical Indication: [...] IMPRESSION: 1. Degenerative disc disease is seen wit h multiple osteophyte disc complexes indenting the dural sac. 2. Multilevel facet arthropathies are se en with hypertrophy and osteophytic ridging narrowing the lateral recesses and neural foramina as described above. Activity of the examination is limited especially in the axial plane secondary to patient motion artifact. Any narrowing of the lateral recesses and neural foramina should be confirmed on CT. SL: [id number] 07/25/2018 [facility] Consultation Notes No Data Provided for This Section Discharge Summaries No Data Provided for This Section History and Physicals No Data Provided for This Section Vital Signs Vital Sign Value Date Comments Source Respitory Rate 15 03/13/2018 [facility] Temperature Oral (F) 98.6 F 03/13/2018 [facility] Systolic (mm Hg) 123 03/13/2018 [facility] Diastolic (mm Hg) 59 03/13/2018 [facility] Systolic (mm Hg) 113 03/13/2018 [facility] Diastolic (mm Hg) 74 03/13/2018 [facility] Respitory Rate 15 03/13/2018 [facility] Systolic (mm Hg) 133 03/13/2018 [facility] Diastolic (mm Hg) 69 03/13/2018 [facility] Respitory Rate 18 03/13/2018 [facility] Temperature Oral (F) 98.9 F 03/13/2018 [facility] Temperature Oral (F) 98.3 F 03/13/2018 [facility] Weight 101.3 03/12/2018 [facility] Height 173.99 cm 03/12/2018 [facility] BMI Calculated 33.46 03/12/2018 [facility] Height 175.2 cm 03/11/2018 [facility] BMI Calculated 32.19 03/11/2018 [facility] Weight 98.8 03/11/2018 [facility] Encounters Location Location Details Encounter Type Encounter Number Reason For Visit Attending Provider ADM Date DC Date Status Source OD [id number] 490 - BRONCHITIS NOS WILBERT CHAVES 08/29/2012 [facility] [id number] Ye Thomas 03/12/2018 03/13/2018 [facility] [id number] Shiv Brambila 07/25/2018 07/26/2018 [facility] Procedures Procedure Code Date Perfomer Comments Source Bilateral inguinal hernia repair [id number] [facility] Cervical laminectomy [id number] [facility] Assessment and Plan Assessment and Plan Date Source Extracted from:Title: Clinical Document Author: Ainsley Matta MD Date: 03/13/18 Discharge Summary Admission Diagnosis: 1. Abnormal nuclear stress test Discharge Diagnosis: 1. Coronary artery disease Comorbid Conditions: 1. Hypertension 2. Dyslipidemia Procedures: 1. Left heart catheterization, selectiv e coronary angiography. 2. Percutaneous transluminal coronary a ngioplasty and drug-eluting stent placement to the right coronary artery for chronic total occlusion. Hospital Course: 67 year-old man who presented for electi cardiac catheterization for evaluation of an abnormal [...] or bruit. Telemetry: Normal sinus rhythm Extracted from:Title: Progress Note * Author: Ye Thomas MD Date: 03/12/18 Impression and Plan The patient was seen and examined by me with the resident/PATTERN DRAFTER/PA and I agree with the History/Exam documented. 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 overnight 03/13/2018 [facility] Plan of Care No Data Provided for This Section Social History Social History Date Source Social History TypeResponse Smoking Status Former smoker; Type: Cigarettes; Ready to change: Yes; Concerns about tobacco use in household: No; Exposure to Tobacco Smoke None; Cigarette Smoking Last 365 Days No; Reg Smoking Cessation Counseling No; Started at age: 11.0; Stopped at age: 62; entered on: 03/12/18 03/12/2018 [facility] Social History TypeResponse Smoking Status Former smoker; Type: Cigarettes; Ready to change: Yes; Concerns about tobacco use in household: No; Exposure to Tobacco Smoke None; Cigarette Smoking Last 365 Days No; Reg Smoking Cessation Counseling No; Started at age: 11.0; Stopped at age: 62; entered on: 03/12/18 03/12/2018 [facility] Family History No Data Provided for This Section Advance Directives No Data Provided for This Section Functional Status No Data Provided for This Section
--- OUTSIDE RECORDS SUMMARY | 2020-03-22 00:38 | XMS REPORT | Summary of Care ---
Author Author [facility] Outpatient Imaging [facility] Outpatient Imaging [facility] Address Unknown Phone Unavailable Encounter HQ Zeynep_[email or web address](FIN) [id number] Date(s): 07/25/18 - 07/25/18 [facility] Outpatient Imaging [place] [address] [facility] [address] [facility] [place] [id number]- [phone] Encounter Diagnosis Carpal tunnel syndrome, left upper limb (Final) - 07/30/18 Carpal tunnel syndrome, right upper limb (Final) - Other cervical disc degeneration, unspecified cervical region (Final) - Osteophyte, vertebrae (Final) - Other specific arthropathies, not elsewhere classified, other specified site (Final) - Discharge Disposition: Home or Self Care Attending Physician: Shiv Brambila MD Referring Physician: Shiv Brambila MD Vital Signs No data available for this section Problem List No data available for this section Allergies, Adverse Reactions, Alerts Substance Reaction Severity Status Vicodin Active Benadryl Vicodin Active Medications No data available for this section Results No data available for this section Immunizations Given and Recorded Vaccine Date Status Refusal Reason pneumococcal 13-valent vaccine 03/13/18 Given Procedures Procedure Date Related Diagnosis Body Site Status Bilateral inguinal hernia repair Completed Cervical laminectomy Completed Social History Social History Type Response Smoking Status Former smoker; Type: Cigare ttes; Ready to change: Yes; Concerns about tobacco use in household: No; Exposure to Tobacco Smoke None; Cigarette Smoking Last 365 Days No; Reg Smoking C essation Counseling No; Started at age: 11.0; Stopped at age: 62; entered on: 03/12/18 Assessment and Plan No data available for this section
--- OUTSIDE RECORDS SUMMARY | 2020-03-22 00:39 | XMS REPORT ---
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 Aminotransferase (ALT/SGPT) 2018-04-17 17:29:00* Test Item Value Reference Range Interpretation Comments Alanine Aminotransferase (ALT/SGPT) (test code = 1742-6) 68 0-55 H [facility] HospitalTolog[facility] Kztdmdp7379-10-33 17:29:00* Test Item Value Reference Range Interpretation Comments Total Protein (test code = 2885-2) 7.2 6.5-8.1 [facility] HospitalAlbumin2018-06-27 17:29:00* Test Item Value Reference Range Interpretation Comments Albumin (test code = 1751-7) 4.0 3.5-5.0 [facility] HospitalGlobulin2018-06-27 17:29:00* Test Item Value Reference Range Interpretation Comments Globulin (test code = 95423-9) 3.2 2.3-3.5 [facility] HospitalAlbumin/Globulin Euaoy0711-37-62 17:29:00 * Test Item Value Reference Range Interpretation Comments Albumin/Globulin Ratio (test code = 1759-0) 1.3 0.8-2.0 [facility] HospitalAlkaline Fhvlxwdaosy9215-56-35 17:29:00* Test Item Value Reference Range Interpretation Comments Alkaline Phosphatase (test code = 6768-6) 54 40-150 [facility] HospitalCreatine Kjouej4692-85-59 17:29:00* Test Item Value Reference Range Interpretation Comments Creatine Kinase (test code = 2157-6) 522 30-200 H [facility] HospitalWhite Blood Tpzrp6316-81-26 16:57:00* Test Item Value Reference Range Interpretation Comments White Blood Count (test code = 6690-2) 9.73 4.8-10.8 [facility] HospitalRed Blood Alokp4655-02-45 16:57:00* Test Item Value Reference Range Interpretation Comments Red Blood Count (test code = 789-8) 4.06 4.3-5.7 L [facility] HospitalHemoglobin2018-06-27 16:57:00* Test Item Value Reference Range Interpretation Comments Hemoglobin (test code = 21457-2) 13.6 14.0-18.0 L [facility] HospitalHematocrit2018-06-27 16:57:00* Test Item Value Reference Range Interpretation Comments Hematocrit (test code = 4544-3) 37.3 38.2-49.6 L [facility] HospitalMean Corpuscular Kpavyz1776-34-97 16:57:00* Test Item Value Reference Range Interpretation Comments Mean Corpuscular Volume (test code = 787-2) 91.9 81-99 [facility] HospitalMean Corpuscular Fmwnznzszt8403-61-36 16:57:00* Test Item Value Reference Range Interpretation Comments Mean Corpuscular Hemoglobin (test code = 785-6) 33.5 28-32 H [facility] HospitalMean Corpuscular Hemoglobin Concent 2018-04-17 16:57:00* Test Item Value Reference Range Interpretation Comments Mean Corpuscular Hemoglobin Concent (test code = 786-4) 36.5 31-35 H [facility] HospitalRed Cell Distribution Ktvli8118-34-30 16:57:00* Test Item Value Reference Range Interpretation Comments Red Cell Distribution Width (test code = 21050-2) 13.1 11.7 -14.4 [facility] HospitalPlatelet Ngkpv4546-20-01 16:57:00* Test Item Value Reference Range Interpretation Comments Platelet Count (test code = 777-3) 335 140-360 [facility] HospitalNeutrophils (%) (Auto)2018-04-17 16:57:00 * Test Item Value Reference Range Interpretation Comments Neutrophils (%) (Auto) (test code = 16871-4) 48.9 38.7-80.0 [facility] HospitalLymphocytes (%) (Auto)2018-04-17 16:57:00 * Test Item Value Reference Range Interpretation Comments Lymphocytes (%) (Auto) (test code = 736-9) 40.8 18.0-39.1 H [facility] HospitalMonocytes (%) (Auto)2018-04-17 16:57:00* Test Item Value Reference Range Interpretation Comments Monocytes (%) (Auto) (test code = 5905-5) 7.5 4.4-11.3 [facility] HospitalEosinophils (%) (Auto)2018-04-17 16:57:00 * Test Item Value Reference Range Interpretation Comments Eosinophils (%) (Auto) (test code = 713-8) 2.0 0.0-6.0 [facility] HospitalBasophils (%) (Auto)2018-04-17 16:57:00* Test Item Value Reference Range Interpretation Comments Basophils (%) (Auto) (test code = 706-2) 0.4 0.0-1.0 [facility] HospitalIM GRANULOCYTES %2018-04-17 16:57:00* Test Item Value Reference Range Interpretation Comments IM GRANULOCYTES % (test code = IM GRANULOCYTES %) 0.4 0.0- 1.0 [facility] HospitalNeutrophils # (Auto)2018-04-17 16:57:00* Test Item Value Reference Range Interpretation Comments Neutrophils # (Auto) (test code = 751-8) 4.8 2.1-6.9 [facility] HospitalLymphocytes # (Auto)2018-04-17 16:57:00* Test Item Value Reference Range Interpretation Comments Lymphocytes # (Auto) (test code = 23976-9) 4.0 1.0-3.2 H [facility] HospitalMonocytes # (Auto)2018-04-17 16:57:00* Test Item Value Reference Range Interpretation Comments Monocytes # (Auto) (test code = 742-7) 0.7 0.2-0.8 [facility] HospitalEosinophils # (Auto)2018-04-17 16:57:00* Test Item Value Reference Range Interpretation Comments Eosinophils # (Auto) (test code = 711-2) 0.2 0.0-0.4 [facility] HospitalBasophils # (Auto)2018-04-17 16:57:00* Test Item Value Reference Range Interpretation Comments Basophils # (Auto) (test code = 704-7) 0.0 0.0-0.1 [facility] HospitalAbsolute Immature Granulocyte (auto 2018-04-17 16:57:00* Test Item Value Reference Range Interpretation Comments Absolute Immature Granulocyte (auto (hiral t code = Absolute Immature Granulocyte (auto) 0.04 0-0.1 [facility] HospitalELECTROLYTES2018-05-23 09:49:009.7[facility] HospitalAyuaxtnhcRERSGMJIYJME8530-89-25 09:49:0053[facility] HospitalTkyxmhuzxHPFSLXYZEMCQ9727-59-78 09:49:65553WAFall River General HospitalPbpqxksqpTUKSLEVLHWKB6420-83-11 09:49:0024[facility] HospitalELECTROLYTES 2018-03-13 09:49:003.7[facility] HospitalPusgfxqxhKLOCLKYJAZJZ3342-21-19 09:49:24030GGF[facility] Hospital NMOTXSHITZNJ9803-83-74 09:49:007.8[facility] HospitalXdsqdlaekMBFNXESDIWUO2177-51-97 09:49:56715 [facility] HospitalTofwxvneiSBZXOSBIDGUZ1391-76-73 09:49:0016[facility] HospitalRmaloayooXKRLVVMRZPEX6920-65-92 09:49:001.07 YdbxcvlcgLQPHXWDEEW2698-73-12 09:49:07566WM SoutheastHEMATOLOGY 2018-03-13 09:49:0013.1M RliseoesgSMUANTIKZM7035-92-11 09:49:007.8[facility] ZZCDUSIOXJ8843-71-41 09:49:0036.0[facility] HospitalLdwbqgixkEJAHZSGYSI3161-50-01 09:49:0095.3MBournewood HospitalRiukukoccPIZSRTXCJH3886-40-32 09:49:00* Test Item Value Reference Range Interpretation Comments MCH (test code = MCH) 34.3 pg 27.0-31.0 [facility] HospitalAkhqwuglzUQTPNYXNEH5154-24-55 09:49:0011.4[facility] HospitalKyhdnrhkzATCMAJIOLJ0290-90-46 09:49:0013.3MS[facility] HospitalGmsiymxpgTMPUKYZNIA2247-78-93 09:49:0036.9[facility] HospitalATOLOGY 2018-03-13 09:49:003.87[facility] HospitalYtefrqxqnADTOUFPPKW1249-81-63 09:49:00* Test Item Value Reference Range Interpretation Comments PTT (test code = PTT) 30.7 s 22.9-35.8 [facility] HospitalEjofdibanFTTNHRSCHA5192-61-10 09:49:00* Test Item Value Reference Range Interpretation Comments PT (test code = PT) 12.8 s 12.0-14.7 [facility] HospitalIqcowukbsKCPHUZOQSI1354-48-00 09:49:00* Test Item Value Reference Range Interpretation Comments INR (test code = INR) 0.96 1 0.85-1.17 [facility] HospitalTgpsqjvllFYPCLGYLZM8710-10-89 19:05:28* Test Item Value Reference Range Interpretation Comments PTT (test code = PTT) 164.1 s 22.9-35.8 SoutheastCHEM JIASE0318-25-21 12:06:0062 SoutheastCHEM GKDPL1170-60-91 12:06:006.4 SoutheastCHEM NKFYU7918-25-18 12:06:0011.0 SoutheastCHEM PANEL 2018-03-12 12:06:00* Test Item Value Reference Range Interpretation Comments B/C Ratio (test code = B/C Ratio) 17 1 6-25 [facility]CHE[facility] UIDXC6487-66-07 12:06:008.1MH [facility]CHEM IJCJQ4997-50-51 12:06:000.95 [facility] MZJMC4401-99-48 12:06:13277ME SoutheastCHEM PANEL 2018-03-12 12:06:004.0 [facility]CHE[facility] LGDYN0705-66-55 12:06:95588JG [facility] CHE[facility] WXOKX1894-26-63 12:06:0026 [facility]CHEM JTUYL1025-35-21 12:06:0016 [facility]CHE[facility] KVYLH2908-81-94 12:06:11277[place] SoutheastCHEM TWVGD9454-62-94 12:06:000.7 [facility]CHEM RCUHN6895-31-33 12:06:0054 SoutheastCHEM PANEL 2018-03-12 12:06:0031[facility]2018-05-22 12:06:003.3MBournewood Hospital CHEM GUXQL0952-26-54 12:06:003.[address] [place] [address] YQXCP6264-78-81 12:06:00* Test Item Value Reference Range Interpretation Comments A/G Ratio (test code = A/G Ratio) 1.1 1 0.7-1.6 [facility] DXJBB8280-84-09 12:06:0049[facility] HospitalYgzcjqaewLJHDRMWFJO6216-55-60 12:06:000.5[facility] HospitalLlrvyqsgfZTGDLJNJCX3470-88-53 12:06:004.[address] [place], [place] [address]HEMATOLOGY 2018-03-12 12:06:006.[address] [place], [place] [address]TwlhrsqqvPTWZTVYIUK2154-20-70 12:06:008.5[facility]2018-05-22 12:06:001.5[facility] HospitalDucvnzaxfTSLFFQJMCT3391-48-24 12:06:[address] [place], [place] [address]MwvmauksnMJAXXUDOJV9916-09-66 12:06:0052.0[facility] HospitalPjipcgtctTYHNCUWOVD7073-89-01 12:06:000.[address] [place], [place] [address]SkselaxomVCKZLSYMVD3045-10-54 12:06:001.0[facility] HospitalATOLOGY 2018-03-12 12:06:000.[address] [place], [place] [address]GzptmupyeSDWVPKVOXJ0709-06-30 12:06:00* Test Item Value Reference Range Interpretation Comments INR (test code = INR) 1.13 1 0.85-1.17 [facility] HospitalVfexustuwCCMEAGKJOU6920-71-76 12:06:00* Test Item Value Reference Range Interpretation Comments PT (test code = PT) 14.5 s 12.0-14.7 [facility] HospitalIjvdhckjmOMTKRZHUFT3331-96-35 12:06:00* Test Item Value Reference Range Interpretation Comments PTT (test code = PTT) 47.1 s 22.9-35.8 [facility] HospitalDhmdarhjnFWWLSURREW1340-89-51 12:06:007.8[facility] HospitalSmzxcpoiiIGXMUWLHCA6201-04-52 12:06:15770DJFall River General HospitalJqsfdnmxtWMWCXPRKCC5228-98-65 12:06:[address] [place], [place] [address]HEMATOLOGY 2018-03-12 12:06:00* Test Item Value Reference Range Interpretation Comments MCH (test code = MCH) 34.5 pg 27.0-31.0 [facility] HospitalPgsdqlevhKZEMHZRQVW8193-15-87 12:06:0013.3MH JbiautodcWVQXGEGMRQ2356-79-89 12:06:0036.7[facility] HospitalLqngvhqpmIPPZQAUTIV7515-89-10 12:06:0038.8 SoutheastHEMATOLOGY 2018-03-12 12:06:004.12 QdpbtspcaEYKGCHCTLK6222-22-63 12:06:0014.2MB[facility]newood Hospital UEHJJZQJCR5288-80-35 12:06:0012.0[facility] HospitalIjcwrdqjvYTIQIKMIYW0350-20-04 05:20:00* Test Item Value Reference Range Interpretation Comments INR (test code = INR) 1.09 1 0.85-1.17 [facility] HospitalYehnkbgclIHOKGBFMLG6536-03-09 05:20:00* Test Item Value Reference Range Interpretation Comments PT (test code = PT) 14.1 s 12.0-14.7 LucullxyqMKUMOTKBKA9872-92-52 01:24:000.[facility] UwksmcbbqMMRLRXDUNT3343-70-74 01:24:005.8 MwzquwcvfIOKTCZWVPM7459-09-28 01:24:000.3M SoutheastHEMATOLOGY 2018-03-12 01:24:002.4[facility] HospitalEfwkstjlsLKGGZTWDWE5012-66-54 01:24:000.9[facility] ASIQTQUMGI9606-23-81 01:24:004.9[facility] HospitalDnmhxgvcoYICIVMGBVR7282-37-89 01:24:009.3MBournewood HospitalXrlqypzwpTROLEVEBJB1195-21-55 01:24:001.1M NphvxuouqXZDPBTFUHL0097-19-04 01:24:0039.9[facility] HospitalTcwaoqgyzACAYMIMPMI7172-65-48 01:24:0047.5 SoutheastHEMATOLOGY 2018-03-12 01:24:0013.4 HrhoybjhsWYWDLQTYJN6688-77-84 01:24:89902MT[facility] Hospital VUOYVDJJQL2580-13-59 01:24:007.8[facility] HospitalSdiedufoyTAYYSBZRTI8959-19-02 01:24:0014.9[facility] HospitalIzviplqrxMJXOYRTJQA6153-29-01 01:24:00* Test Item Value Reference Range Interpretation Comments MCH (test code = MCH) 34.2 pg 27.0-31.0 HedrnlrfwUQTLXGVINQ9205-83-44 01:24:0035.7 KpwdcukbtRBHYMYSNZT0491-02-68 01:24:004.35 YqtfmbgwoBBGKSYWPAC7542-70-99 01:24:0096.0 [facility]HEMATOLOGY 2018-03-12 01:24:0012.2MH KhqbckmloGCSNKCOJAR1236-45-15 01:24:0041.8 [facility] CHEM VJEBC4784-75-97 17:39:0058 [facility]CHEM CKSSB5622-46-50 17:39:0013 [facility]CHEM VRTOH4596-99-17 17:39:0087 [facility]CHEM LKDYE3416-85-48 17:39:0060 [facility]CHEM RRHWD3671-67-76 17:39:001.00 SoutheastCHEM PANEL 2018-03-11 17:39:25567UT SoutheastCHEM SHEIJ2896-36-18 17:39:38127AZ [facility] CHEM CBCED4835-56-33 17:39:0024 [facility]CHEM FGKPD2908-04-76 17:39:007.0 [facility]CHE[facility] RLSIQ1786-30-55 17:39:008.9 [facility]CHEM GUJPP8829-76-61 17:39:004.6M [facility]CHEM YHWWL1337-34-92 17:39:0028 SoutheastCHEM PANEL 2018-03-11 17:39:0051 [facility]CHEM ELOGZ7630-52-72 17:39:003.9 [facility] QWOPM3636-26-55 17:39:000.3MH SoutheastCHEM OKRIM2569-41-13 17:39:00* Test Item Value Reference Range Interpretation Comments A/G Ratio (test code = A/G Ratio) 1.3 1 0.7-1.6 [facility]CHEM JTWST8963-03-74 17:39:003.1M SoutheastCHEM BHRIX2214-87-52 17:39:00* Test Item Value Reference Range Interpretation Comments B/C Ratio (test code = B/C Ratio) 13 1 6-25 [facility]CHEM MOXOE0774-50-55 17:39:0013.6M GfnhmvkdqGLDYGIKMJH5117-78-27 17:39:000.1M ImdcyvculQDKJEWNHCD0620-00-21 17:39:001.0 SoutheastHEMATOLOGY 2018-03-11 17:39:000.3M LbsprwuuaDAUWHGDVWQ1311-88-29 17:39:004.3M [facility] HWFMWBJLRO6783-93-06 17:39:002.8 TadgwzzznOGIUSNSIAR5470-15-56 17:39:001.0MH ZvmcokoiwJIJFKSEBIE0741-36-72 17:39:005.8[facility] HospitalXutruyrnsVATXDQONBP6566-34-13 17:39:0050.1MBournewood HospitalFssqrtefaIWJFBSRLZH8697-70-91 17:39:0037.1MSouthwood [facility] HospitalATOLOGY 2018-03-11 17:39:009.0[facility] HospitalNrzfylqeyXWATYW1435-86-46 17:39:00* Test Item Value Reference Range Interpretation Comments CHD Risk (test code = CHD Risk) 6.91 1 3.90-5.80 [facility] HospitalFzzrtkprpRDOIFH7388-19-89 17:39:0073[facility] HospitalLqogamjvhTUFAJI9603-16-17 17:39:00* Test Item Value Reference Range Interpretation Comments VLDL (test code = VLDL) 63 1 [employer] [facility] BoysNyglkycibPPLIMO4981-79-32 17:39:0023[facility] HospitalCpkunxcnfBYKECD5034-63-44 17:39:55876 [facility] CenterEqmfuduujMNHZXQ3042-04-50 17:39:92354BJVibra Hospital of Western Massachusettsite Blood Emeri9766-00-28 21:48:00* Test Item Value Reference Range Interpretation Comments White Blood Count (test code = 6690-2) 10.71 4.8-10.8 [facility] HospitalRed Blood Pdrlt8025-81-64 21:48:00* Test Item Value Reference Range Interpretation Comments Red Blood Count (test code = 789-8) 5.04 4.3-5.7 [facility] HospitalHemoglobin2018-04-25 21:48:00* Test Item Value Reference Range Interpretation Comments Hemoglobin (test code = 72512-5) 17.3 14.0-18.0 LIPEMIC SPECIMEN, PERFORMED SALINE SPECIMEN AND RAN 3 TIMES FOR CONSISTENCYUT Health East Texas Carthage HospitalHematocrit2018-04-25 21:48:00* Test Item Value Reference Range Interpretation Comments Hematocrit (test code = 4544-3) 46.1 38.2-49.6 LIPEMIC SPECIMEN, PERFORMED SALINE SPECIMEN AND RAN 3 TIMES FOR CONSISTENCYUT Health [facility] HospitalMean Corpuscular Eukmln6458-61-35 21:48:00* Test Item Value Reference Range Interpretation Comments Mean Corpuscular Volume (test code = 787-2) 91.5 81-99 [facility] HospitalMean Corpuscular Vjwstszwwb7193-37-04 21:48:00* Test Item Value Reference Range Interpretation Comments Mean Corpuscular Hemoglobin (test code = 785-6) 34.3 28-32 H [facility] HospitalMean Corpuscular Hemoglobin Concent 2018-02-13 21:48:00* Test Item Value Reference Range Interpretation Comments Mean Corpuscular Hemoglobin Concent (test code = 786-4) 37.5 31-35 H [facility] HospitalRed Cell Distribution Vgrpq5686-59-50 21:48:00* Test Item Value Reference Range Interpretation Comments Red Cell Distribution Width (test code = 46009-2) 14.9 11.7 -14.4 H [facility] HospitalPlatelet Bsmwp1867-23-49 21:48:00* Test Item Value Reference Range Interpretation Comments Platelet Count (test code = 777-3) 390 140-360 H [facility] HospitalNeutrophils (%) (Auto)2018-02-13 21:48:00 * Test Item Value Reference Range Interpretation Comments Neutrophils (%) (Auto) (test code = 83927-0) 42.3 38.7-80.0 [facility] HospitalLymphocytes (%) (Auto)2018-02-13 21:48:00 * Test Item Value Reference Range Interpretation Comments Lymphocytes (%) (Auto) (test code = 736-9) 43.3 18.0-39.1 H [facility] HospitalMonocytes (%) (Auto)2018-02-13 21:48:00* Test Item Value Reference Range Interpretation Comments Monocytes (%) (Auto) (test code = 5905-5) 10.7 4.4-11.3 [facility] HospitalEosinophils (%) (Auto)2018-02-13 21:48:00 * Test Item Value Reference Range Interpretation Comments Eosinophils (%) (Auto) (test code = 713-8) 2.5 0.0-6.0 [facility] HospitalBasophils (%) (Auto)2018-02-13 21:48:00* Test Item Value Reference Range Interpretation Comments Basophils (%) (Auto) (test code = 706-2) 0.7 0.0-1.0 [facility] HospitalIM GRANULOCYTES %2018-02-13 21:48:00* Test Item Value Reference Range Interpretation Comments IM GRANULOCYTES % (test code = IM GRANULOCYTES %) 0.5 0.0- 1.0 [facility] HospitalNeutrophils # (Auto)2018-02-13 21:48:00* Test Item Value Reference Range Interpretation Comments Neutrophils # (Auto) (test code = 751-8) 4.5 2.1-6.9 [facility] HospitalLymphocytes # (Auto)2018-02-13 21:48:00* Test Item Value Reference Range Interpretation Comments Lymphocytes # (Auto) (test code = 38455-8) 4.6 1.0-3.2 H [facility] HospitalMonocytes # (Auto)2018-02-13 21:48:00* Test Item Value Reference Range Interpretation Comments Monocytes # (Auto) (test code = 742-7) 1.2 0.2-0.8 H [facility] HospitalEosinophils # (Auto)2018-02-13 21:48:00* Test Item Value Reference Range Interpretation Comments Eosinophils # (Auto) (test code = 711-2) 0.3 0.0-0.4 [facility] HospitalBasophils # (Auto)2018-02-13 21:48:00* Test Item Value Reference Range Interpretation Comments Basophils # (Auto) (test code = 704-7) 0.1 0.0-0.1 [facility] HospitalAbsolute Immature Granulocyte (auto 2018-02-13 21:48:00* Test Item Value Reference Range Interpretation Comments Absolute Immature Granulocyte (auto (hiral t code = Absolute Immature Granulocyte (auto) 0.05 0-0.1 [facility] HospitalB-Type Natriuretic Mczjeto8698-22-73 21:46:00* Test Item Value Reference Range Interpretation Comments B-Type Natriuretic Peptide (test code = 65315-3) -10.0 0-100 [facility] HospitalB-Type Natriuretic Dnxoozp8407-43-59 21:46:00* Test Item Value Reference Range Interpretation Comments B-Type Natriuretic Peptide (test code = 35886-6) -10.0 0-100 [facility] HospitalCreatine Kinase EL8779-49-62 21:29:00* Test Item Value Reference Range Interpretation Comments Creatine Kinase MB (test code = 30161-1) 3.20 0-5.0 [facility] HospitalTroponin I6331-52-88 21:29:00* Test Item Value Reference Range Interpretation Comments Troponin I (test code = KTT2510) 0.008 0-0.300 [facility] HospitalD-Dimer Quantitative (PE/DVT)2018-02-13 21:26:00* Test Item Value Reference Range Interpretation Comments D-Dimer Quantitative (PE/DVT) (test code = 54575-2) 0.91 0. 00-0.45 H [facility] HospitalD-Dimer Quantitative (PE/DVT)2018-02-13 21:26:00* Test Item Value Reference Range Interpretation Comments D-Dimer Quantitative (PE/DVT) (test code = 23693-2) 0.91 0. 00-0.45 [facility]woododium Rwfkm4134-40-30 21:25:00* Test Item Value Reference Range Interpretation Comments Sodium Level (test code = 2951-2) 139 136-145 [facility] HospitalPotassium Kxbvn4543-08-85 21:25:00* Test Item Value Reference Range Interpretation Comments Potassium Level (test code = 2823-3) 3.8 3.5-5.1 [facility] HospitalChloride Kanag7122-27-60 21:25:00* Test Item Value Reference Range Interpretation Comments Chloride Level (test code = 2075-0) 106 98-107 [facility] HospitalCarbon Dioxide Nztoo1413-55-81 21:25:00* Test Item Value Reference Range Interpretation Comments Carbon Dioxide Level (test code = 2028-9) 22 22-29 [facility] HospitalAnion Sbh9135-23-02 21:25:00* Test Item Value Reference Range Interpretation Comments Anion Gap (test code = 56576-0) 14.8 8-16 [facility] HospitalBlood Urea Najiaias7570-52-00 21:25:00* Test Item Value Reference Range Interpretation Comments Blood Urea Nitrogen (test code = 3094-0) 15 7-26 [facility] HospitalCreatinine2018-04-25 21:25:00* Test Item Value Reference Range Interpretation Comments Creatinine (test code = 2160-0) 0.95 0.72-1.25 [facility] HospitalBUN/Creatinine Docjx9675-03-60 21:25:00* Test Item Value Reference Range Interpretation Comments BUN/Creatinine Ratio (test code = 3097-3) 16 6- [facility] HospitalEstimat Glomerular Filtration Rate 2018-02-13 21:25:00* Test Item Value Reference Range Interpretation Comments Estimat Glomerular Filtration Rate (test code = 00204-2) 60- >60 Ranges were taken from the National Kidney Disease Education Program and the [facility] literature.Reference ranges:60 or greater: Mqrfnh61-71 ( for 3 consecutive months): Chronic kidney disease 15 or less: Kidney failureUT Health East Texas Carthage HospitalGlucose Sborm0288-56-00 21:25:00* Test Item Value Reference Range Interpretation Comments Glucose Level (test code = [id number]) 106 74-118 [facility] HospitalCalcium Ybons4803-85-13 21:25:00* Test Item Value Reference Range Interpretation Comments Calcium Level (test code = 93822-9) 9.4 8.4-10.2 [facility] HospitalTotal Gyvdzcxrb9802-66-99 21:25:00* Test Item Value Reference Range Interpretation Comments Total Bilirubin (test code = 1975-2) 0.4 0.2-1.2 [facility] HospitalAspartate Amino Transf (AST/SGOT) 2018-02-13 21:25:00* Test Item Value Reference Range Interpretation Comments Aspartate Amino Transf (AST/SGOT) (test code = Aspartate Amino Transf (AST/SGOT)) 27 5-34 [facility] HospitalAlanine Aminotransferase (ALT/SGPT) 2018-02-13 21:25:00* Test Item Value Reference Range Interpretation Comments Alanine Aminotransferase (ALT/SGPT) (test code = 1742-6) 38 0-55 [facility] HospitalTotal Uupjnyz0449-35-51 21:25:00* Test Item Value Reference Range Interpretation Comments Total Protein (test code = 2885-2) 7.4 6.5-8.1 [facility] HospitalAlbumin2018-04-25 21:25:00* Test Item Value Reference Range Interpretation Comments Albumin (test code = 1751-7) 3.8 3.5-5.0 [facility] HospitalGlobulin2018-04-25 21:25:00* Test Item Value Reference Range Interpretation Comments Globulin (test code = 51698-7) 3.6 2.3-3.5 H [facility] HospitalAlbumin/Globulin Mfagf8692-88-61 21:25:00 * Test Item Value Reference Range Interpretation Comments Albumin/Globulin Ratio (test code = 1759-0) 1.1 0.8-2.0 [facility] HospitalAlkaline Mdprqppiyhz6161-58-35 21:25:00* Test Item Value Reference Range Interpretation Comments Alkaline Phosphatase (test code = 6768-6) 63 40-150 [facility] HospitalCreatine Cudqtk1796-68-11 21:25:00* Test Item Value Reference Range Interpretation Comments Creatine Kinase (test code = 2157-6) 172 30-200 [facility] HospitalActivated Partial Thromboplast Time 2018-02-13 21:13:00* Test Item Value Reference Range Interpretation Comments Activated Partial Thromboplast Time (test code = 62600-4) 27.4 23.8-35.5 [facility] HospitalActivated Partial Thromboplast Time 2018-02-13 21:13:00* Test Item Value Reference Range Interpretation Comments Activated Partial Thromboplast Time (test code = 43407-6) 27.4 23.8-35.5 [facility] HospitalProthrombin Ausg6019-63-23 21:12:00* Test Item Value Reference Range Interpretation Comments Prothrombin Time (test code = 5902-2) 12.5 11.9-14.5 [facility] HospitalProthromb Time International Ratio 2018-02-13 21:12:00* Test Item Value Reference Range Interpretation Comments Prothromb Time International Ratio (test code = 6301-6) 1.01 Oral Anticoagulant Therapy INR Values:1. Low Intensity Therapy 1.5 - 2.02 . Moderate Intensity Therapy 2.0 - 3.03. High Intensity Therapy(1) 2.5 - 3. 54. High Intensity Therapy(2) 3.0 - 4.05. Panic Value INR > 5.0 [facility] HospitalProthrombin Oggs4783-15-34 21:12:00* Test Item Value Reference Range Interpretation Comments Prothrombin Time (test code = 5902-2) 12.5 11.9-14.5 [facility] HospitalProthromb Time International Ratio 2018-02-13 21:12:00* Test Item Value Reference Range Interpretation Comments Prothromb Time International Ratio (test code = 6301-6) 1.01 Oral Anticoagulant Therapy INR Values:1. Low Intensity Therapy 1.5 - 2.02 . Moderate Intensity Therapy 2.0 - 3.03. High Intensity Therapy(1) 2.5 - 3. 54. High Intensity Therapy(2) 3.0 - 4.05. Panic Value INR > 5.0 [facility] HospitalCreatine Kinase AX6276-31-16 07:42:00* Test Item Value Reference Range Interpretation Comments Creatine Kinase MB (test code = 70638-0) 3.80 0-5.0 [facility] HospitalTroponin B6362-65-68 07:42:00* Test Item Value Reference Range Interpretation Comments Troponin I (test code = MLH3328) -0.001 0-0.300 [facility]wood[facility] Ilzat2494-12-34 07:39:00* Test Item Value Reference Range Interpretation Comments Sodium Level (test code = 2951-2) 141 136-145 [facility] HospitalPotassium Bkwbc0960-28-27 07:39:00* Test Item Value Reference Range Interpretation Comments Potassium Level (test code = 2823-3) 4.2 3.5-5.1 [facility] HospitalChloride Dbmjq2160-96-84 07:39:00* Test Item Value Reference Range Interpretation Comments Chloride Level (test code = 2075-0) 112 98-107 H [facility] HospitalCarbon Dioxide Ulpnj4684-76-03 07:39:00* Test Item Value Reference Range Interpretation Comments Carbon Dioxide Level (test code = 2028-9) 22 -29 [facility] HospitalAnion Wea2699-81-23 07:39:00* Test Item Value Reference Range Interpretation Comments Anion Gap (test code =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
--- NOTE | 2020-03-22 00:42 | Emergency Department Note ---
History of Present Illnes History of Present Illness History of Present Illness This is a 69 year old male s/p PCI stent presents to the ED for epigastric CP which radiates to back prior to arrival . 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 Any updates have been documented here. Past Medical History Recent Fever: No Past Medical History: Hypertension, Anxiety, Hyperlipedemia Other Medical History: prostate enlarge LITHOTRIPSY HIGH CHOLESTEROL ASBESTOSIS DEPRESSION Past Surgical History: T&A, PCI, Hernia Repair, Back Surgery Other Surgery: hernia repair 2 years ago at this hospital. 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 Physical Exam Related Data Allergies: Coded Allergies: acetaminophen (Verified Allergy, Mild, ITCHY, 04/17/18) diphenhydramine HCl (Verified Allergy, Mild, ITCHY, 04/17/18) hydrocodone bit (Verified Allergy, Mild, ITCHY, 04/17/18) Triage Vital Signs Vital Signs Date Time Temp Pulse Resp B/P (MAP) Pulse Ox O2 Delivery O2 Flow Rate FiO2 03/22/20 00:53 97.8 67 16 102/58 100 03/22/20 21:00 Room Air Vital signs reviewed: Yes Physical Exam CONSTITUTIONAL Constitutional: well-nourished, distressed HENT HENT: normocephalic, atraumatic, oropharynx clear/moist, nose normal HENT L/R: left ext ear normal, right ext ear normal EYES Eyes: PERRL, conjunctivae normal NECK Neck: ROM normal PULMONARY Pulmonary: effort normal, breath sounds normal CARDIOVASCULAR Cardiovascular: regular rhythm, heart sounds normal, capillary refill normal, normal rate GASTROINTESTINAL Abdominal: soft, nontender, bowel sounds normal GENITOURINARY Genitourinary: exam deferred SKIN Skin: warm, dry MUSCULOSKELETAL Musculoskeletal: ROM normal, edema (1+ pedal edema) NEUROLOGICAL Neurological: alert, oriented x 3, no gross motor or sensory deficits PSYCHOLOGICAL Psychological: mood/affect normal, judgement normal Results Laboratory Lab results reviewed: Yes Imaging Imaging results reviewed: Yes Impressions [address] [address] Patient Name: JOSEPH LONGO MR #: [id number] : 1950 Age/Sex: 69/M Req #: [id number] Adm Physician: Ordered by: JUNIOR MARCUM DO Report #: [id number] Location: ER Room/Bed: Procedure: CT/CT CHEST W Exam Date: 03/22/20 Exam Time: 0145 REPORT STATUS: Signed EXAM: CT Chest WITH contrast (PE protocol) 03/22/2020 1:45 AM INDICATION: Chest pain COMPARISON: None TECHNIQUE: Chest was scanned utilizing a multidetector helical scanner from the lung apex through the level of the diaphragm after administration of IV contrast. Thin section reconstructions were obtained with special concentration on the pulmonary arteries. Coronal and sagittal reformations were obtained. Pulmonary embolism protocol was performed. IV CONTRAST: 100 mL of Isovue 370 COMPLICATIONS: None RADIATION DOSE: Total DLP: 634 mGy*cm Estimated effective dose: (DLP x 0.014 x size factor) mSv CTDIvol has been reviewed. It is below the limits set by the Radiation Protocol Committee (RPC). Dose modulation, iterative reconstruction, and/or weight based adjustment of the mA/kV was utilized to reduce the radiation dose to as low as reasonably achievable. FINDINGS: LINES/ TUBES: None. LUNGS AND AIRWAYS: A 6 cm locally invasive left upper lobe apical medial mass invades the mediastinum and encases the left subclavian and carotid arteries and partially encases the thoracic aorta and brachiocephalic artery. Bibasilar atelectasis. Elevated left hemidiaphragm. PLEURA: The pleural spaces are clear. HEART AND MEDIASTINUM: The thyroid gland is normal. Enlarged mediastinal lymph nodes include 1.7 cm left aortopulmonary lymph node (series 2 image 44). 1.1 cm left lower paratracheal lymph node (series 2 image 45). 1.1 cm right aortopulmonary lymph node (series 2 image 48). The heart is normal in size. There is no pericardial effusion. Triple vessel coronary artery calcific atherosclerosis. Mild main pulmonary artery dilation, 3.7 cm in diameter. Aortic calcifications. UPPER ABDOMEN: Colonic diverticula. BONES: A 2 cm expansile lytic metastasis in T5 vertebral body extends into the left T5 neuroforamina and adjacent anterolateral left epidural space. SOFT TISSUES: Unremarkable. Air in the left subclavian artery is due to injection. IMPRESSION: No pulmonary embolus. A 6 cm locally invasive left upper lobe apicomedial mass invades the mediastinum and encases the left subclavian and carotid arteries and partially encases the distal aortic arch and brachiocephalic artery. Malignant mediastinal adenopathy as above. Expansile destructive lytic metastasis in T5 vertebral body invades the left T5 neural foramina and left anterolateral epidural space. Elevated left hemidiaphragm elevation likely due to left phrenic nerve malignant involvement. Triple vessel coronary artery calcific atherosclerosis. Pulmonary emphysema. Mild main pulmonary artery dilation suggestive of pulmonary hypertension. Borderline cardiac magnet. 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: reviewed Rhythm: sinus rhythm Rate: normal QRS axis: normal ST segments normal: Yes T waves normal: No T wave depression: V1, V2 Other findings: prolonged QTc interval Pacin% capture Clinical Impression: non-specific ECG Assessment & Plan Assessment & Plan Final Impression: (1) MALIGNANT NEOPLASM OF VERTEBRAL COLUMN (2) MALIGNANT NEOPLASM OF ANTERIOR MEDIASTINUM (3) Chest pain Assessment & Plan CBC , CMP, Cardiac Enzymes, and CT scan chest Patient to be admitted to hospital Depart Disposition: ADMITTED Home Meds Active Scripts Tramadol Hcl* (ULTRAM 50MG*) 50 Mg Tab, 50 MG PO Q8H PRN for pain, #30 TAB Prov:GARETH LIND DEVELOPMENT PROFESSIONAL 03/24/20 Ranolazine (RANEXA) 500 Mg Tabsr, 1000 MG PO BID for 30 Days Prov:GARETH LIND DEVELOPMENT PROFESSIONAL 03/24/20 Reported Medications Loratadine (LORATADINE) 10 Mg Tablet, 10 MG PO DAILY, #30 TAB 03/23/20 Tizanidine Hcl (TIZANIDINE HCL) 4 Mg Capsule, 2 MG PO HS 03/23/20 Atorvastatin Calcium (ATORVASTATIN CALCIUM) 20 Mg Tablet, 40 MG PO HS, #30 TAB 02/03/20 Metoprolol Succinate (METOPROLOL SUCCINATE) 25 Mg Tab.er.24h 12/24/18 Terazosin Hcl (TERAZOSIN HCL) 5 Mg Capsule, 5 MG PO DAILY, #30 CAP 02/19/16 Finasteride (FINASTERIDE) 5 Mg Tablet, 5 MG PO DAILY, #30 TAB 02/19/16 Loratadine (LORATADINE) 10 Mg Tablet, 10 MG PO DAILY, #30 TAB 02/19/16 Citalopram Hydrobromide (CITALOPRAM HBR) 40 Mg Tablet, 40 MG PO DAILY 02/19/16 Ascorbic Acid (VITAMIN C) 500 Mg Tablet, 500 MG PO DAILY 02/19/16 Multivitamin (DAILY VITAMIN) 1 Each Tablet, PO DAILY 07/09/13 Discontinued Reported Medications Ranolazine (RANEXA) 500 Mg Tabsr, 500 MG PO BID, #60 TAB 02/03/20 Clopidogrel Bisulfate* (PLAVIX) 75 Mg Tablet, 75 MG PO DAILY, #30 TAB 12/24/18 Ibuprofen (IBUPROFEN) 400 Mg Tablet, 800 MG PO Q6H PRN for PAIN, TAB 02/19/16 Aspirin (ASPIR 81) 81 Mg Tablet.dr, 81 MG PO DAILY 02/19/16 JUNIOR MARCUM DO Mar 22, 2020 00:42
[2020-03-22] MEDS ORDERED: ASPIRIN 81 MG CHEW TAB PO ONE ×2 (00:45→04:00)
[2020-03-22 00:56] LABS: BASOPHILS # (AUTO) 0.1 (0.0-0.1); BASOPHILS % 0.5 % (0.0-1.0); EOSINOPHILS # (AUTO) 0.1 (0.0-0.4); EOSINOPHILS % 0.7 % (0.0-6.0); HEMATOCRIT 34.3 % (38.2-49.6); HEMOGLOBIN 12.7 g/dL (14.0-18.0); LYMPHOCYTES # (AUTO) 8.5 (1.0-3.2); MEAN CORPUSCULAR HEMOGLOBIN 33.2 pg (28-32); MEAN CORPUSCULAR VOLUME 89.6 fL (81-99); MONOCYTES # (AUTO) 1.5 (0.2-0.8); MONOCYTES % 9.1 % (4.4-11.3); NEUTROPHILS # (AUTO) 6.4 (2.1-6.9); NEUTROPHILS % 38.3 % (38.7-80.0); PLATELET COUNT 424 x10e3/uL (140-360); RED BLOOD COUNT 3.83 x10e6/uL (4.3-5.7); RED CELL DISTRIBUTION WIDTH 13.4 % (11.7-14.4)
[2020-03-22] MEDS ORDERED: ONDANSETRON HCL INJ 2MG/ML 2ML 2 MG/ML VIAL ONE (00:58)
[2020-03-22] MEDS ORDERED: ONDANSETRON HCL INJ 2MG/ML 2ML 2 MG/ML VIAL IV STA (01:01)
[2020-03-22 01:11] LABS: ALANINE AMINOTRANSFERASE 17 IU/L (0-55); ALBUMIN 3.6 g/dL (3.5-5.0); ALBUMIN/GLOBULIN RATIO 1.1 (0.8-2.0); ALKALINE PHOSPHATASE 74 IU/L (40-150); ANION GAP 16.4 mmol/L (8-16); BLOOD UREA NITROGEN 17 mg/dL (7-26); BUN/CREATININE RATIO 17 (6-25); CALCIUM 9.3 mg/dL (8.4-10.2); CARBON DIOXIDE 19 mmol/L (22-29); CHLORIDE 106 mmol/L (98-107); CREATINE KINASE 111 IU/L (30-200); EST GLOMERULAR FILTRATION RATE > 60 ML/MIN (60-); GLUCOSE 133 mg/dL (74-118); LIPASE 61 U/L (8-78); POTASSIUM 3.4 mmol/L (3.5-5.1); SODIUM 138 mmol/L (136-145)
[2020-03-22] MEDS ORDERED: IOPAMIDOL 370 MG/ML 200 ML INFUS..BTL INJ ONE (01:25)
[2020-03-22] MEDS ORDERED: SODIUM CHLORIDE 0.9% 50ML 50 ML ONE (01:25)
[2020-03-22] MEDS: PIPER-TAZ 3.375 GM 50 ML IV SCH ×2 (02:58→06:44)
[2020-03-22] MEDS ORDERED: KETOROLAC TROMETHAMINE 30 MG/ML VIAL IV STA (03:35)
--- NOTE | 2020-03-22 03:39 | Diagnostic Imaging Report ---
EXAM: CT Chest WITH contrast (PE protocol) 03/22/2020 1:45 AM INDICATION: Chest pain COMPARISON: None TECHNIQUE: Chest was scanned utilizing a multidetector helical scanner from the lung apex through the level of the diaphragm after administration of IV contrast. Thin section reconstructions were obtained with special concentration on the pulmonary arteries. Coronal and sagittal reformations were obtained. Pulmonary embolism protocol was performed. IV CONTRAST: 100 mL of Isovue 370 COMPLICATIONS: None RADIATION DOSE: Total DLP: 634 mGy*cm Estimated effective dose: (DLP x 0.014 x size factor) mSv CTDIvol has been reviewed. It is below the limits set by the Radiation Protocol Committee (RPC). Dose modulation, iterative reconstruction, and/or weight based adjustment of the mA/kV was utilized to reduce the radiation dose to as low as reasonably achievable. FINDINGS: LINES/ TUBES: None. LUNGS AND AIRWAYS: A 6 cm locally invasive left upper lobe apical medial mass invades the mediastinum and encases the left subclavian and carotid arteries and partially encases the thoracic aorta and brachiocephalic artery. Bibasilar atelectasis. Elevated left hemidiaphragm. PLEURA: The pleural spaces are clear. HEART AND MEDIASTINUM: The thyroid gland is normal. Enlarged mediastinal lymph nodes include 1.7 cm left aortopulmonary lymph node (series 2 image 44). 1.1 cm left lower paratracheal lymph node (series 2 image 45). 1.1 cm right aortopulmonary lymph node (series 2 image 48). The heart is normal in size. There is no pericardial effusion. Triple vessel coronary artery calcific atherosclerosis. Mild main pulmonary artery dilation, 3.7 cm in diameter. Aortic calcifications. UPPER ABDOMEN: Colonic diverticula. BONES: A 2 cm expansile lytic metastasis in T5 vertebral body extends into the left T5 neuroforamina and adjacent anterolateral left epidural space. SOFT TISSUES: Unremarkable. Air in the left subclavian artery is due to injection. IMPRESSION: No pulmonary embolus. A 6 cm locally invasive left upper lobe apicomedial mass invades the mediastinum and encases the left subclavian and carotid arteries and partially encases the distal aortic arch and brachiocephalic artery. Malignant mediastinal adenopathy as above. Expansile destructive lytic metastasis in T5 vertebral body invades the left T5 neural foramina and left anterolateral epidural space. Elevated left hemidiaphragm elevation likely due to left phrenic nerve malignant involvement. Triple vessel coronary artery calcific atherosclerosis. Pulmonary emphysema. Mild main pulmonary artery dilation suggestive of pulmonary hypertension. Borderline cardiac magnet. Signed by: Arian Henry DO on 03/22/2020 3:35 AM
[2020-03-22] MEDS ORDERED: ONDANSETRON HCL INJ 2MG/ML 2ML 2 MG/ML VIAL IV PRN (04:00)
[2020-03-22] MEDS ORDERED: SODIUM CHLORIDE 0.9% 1000ML 1,000 ML IV SCH (04:00)
[2020-03-22] MEDS ORDERED: SODIUM CHLORIDE 0.9% 1000ML 1,000 ML IV STA (04:06)
[2020-03-22] MEDS: MORPHINE SULFATE 2 MG/ML SYR 1ML IV PRN ×4 (04:20→20:00)
--- OUTSIDE RECORDS SUMMARY | 2020-03-22 04:56 | XMS REPORT | Continuity of Care Document ---
Author Author [employer] JOSEPH Venegas [employer] Address Unknown Phone Unavailable Care Team Providers Care Station Installer Name Role Phone [employer] Unavailable Un available Problems Problem Status Onset Date Classification Date Reported Comments Source Carpal tunnel syndrome, left upper limb 07/31/2018 02/11/2019 [facility] HEART CATH Active 03/07/2018 [facility] CAD(CORONARY ARTERY DISEASE) A ctive 03/07/2018 [facility] 490 - BRONCHITIS NOS Active 08/29/2012 [facility] [place] Carpal tunnel syndrome, right upper limb 02/11/2019 [facility] Other cervical disc degeneration, unspec ified cervical region 02/11/2019 [facility] Osteophyte, vertebrae 02/11/2019 [facility] Other specific arthropathies, 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, vertebrae 02/11/2019 [facility] 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 [facility] Medications Medication Details Route Status Patient Instructions Ordering Provider Order Date Source metoprolol 25 mg oral tablet, extended release 25 mg = 1 tab, PO, Daily, # 30 tab, 0 Refill(s), Pharmacy: [place] [id number] Active 03/13/2018 [facility] clopidogrel 75 mg oral tablet 75 mg = 1 tab, PO, Daily, # 30 tab, 0 Refill(s), Pharmacy: [place] [id number] Active 03/13/2018 [facility] atorvastatin 40 mg oral tablet 40 mg = 1 tab, PO, Daily, # 30 tab, 0 Refill(s), Pharmacy: [place] [id number] Active 03/13/2018 [facility] Fentanyl Notes: (Same as: Subl imaze) Preservative free. No Longer Active 03/13/2018 [facility] Hydralazine Notes: (Same as: A presoline) Push over 5 minutes No Longer Active 03/12/2018 [facility] Morphine Notes: (Same as:MORPh ine Sulfate) No Longer Active 03/12/2018 [facility] Nitroglycerin Notes: (Same as: Nitroquick, Nitrostat) "Do Not Crush" Sublingual tablet No Longer Active 03/12/2018 [facility] Sodium Chloride 0.9% IV 750 mL 750 mL, Rate: 75 ml/hr, Infuse over: 10 hr, Route: IV, Dosing Weight 101.3 kg, Total Volume: 750, Start date: 03/12/18 12:36:00 CDT, Duration: 10 hr, Stop date: 03/12/18 22:35:00 CDT, 2.24, m2 Inactive 03/12/2018 [facility] Mucinex 1200, PO, Daily, PRN A llergies, 0 Refill(s) No Longer Active 03/12/2018 [facility] Lisinopril Notes: (Same as: Pr inivil, Zestril) No Longer Active 03/12/2018 [facility] Citalopram 20 mg, 2 tab, Route : PO, Drug form: TAB, Daily, Dosing Weight 98.8, kg, Start date: 03/12/18 9:00:00 CDT, Duration: 30 day, Stop date: 04/10/18 9:00:00 CDT No Longer Active 03/12/2018 [facility] atorvastatin Notes: (Same as: Lipitor) No Longer Active 03/12/2018 [facility] Aspirin 81 MG Chewable Tablet 81 mg, 1 tab, Route: PO, Drug form: CHEWTAB, Daily, Dosing Weight 98.8, kg, Start date: 03/12/18 9:00:00 CDT, Duration: 30 day, Stop date: 04/10/18 9:00:00 CDT No Longer Active 03/12/2018 [facility] clopidogrel Notes: (Same As: P lavix) No Longer Active 03/12/2018 [facility] Aspirin 81 MG Enteric Coated Tablet Notes: Do not crush or chew. (Same As: Ecotrin) No Longer Active 03/12/2018 [facility] metoprolol extended release No hiral: (Same as: Toprol XL) Do Not Crush No Longer Active 03/12/2018 [facility] Terazosin Notes: (Same As: Hyt rin) No Longer Active 03/12/2018 [facility] Famotidine Notes: (Same as: Pe pcid) No Longer Active 03/12/2018 [facility] heparin additive 25,000 unit [12 unit/kg /hr] + Premix Diluent Dextrose 5% 500 mL 500 mL, Rate: 19.01 ml/hr, Infuse over: 26.3 hr, Route: IV, Dosing Weight 79.2 kg, Total Volume: 500 mL, Start date: 03/11/18 17:52:00 CDT, Duration: 30 day, Stop date: 04/10/18 17:51:00 CDT, 1.98, m2 No Longer Active 03/11/2018 [facility] Heparin 30 unit/kg Bolus (Heparin Dosing Weight) Route: IVP, PRN, 2,400 unit, 2.4 mL, Drug form: INJ, PRN, Heparin Protocol, Start date: 03/11/18 17:52:00 CDT Stop date: 04/10/18 17:51:00 CDT, 30 day No Longer Active 03/11/2018 [facility] Heparin 60 unit/kg Bolus (Heparin Dosing Weight) Route: IVP, PRN, 4,800 unit, 4.8 mL, Drug form: INJ, PRN, Heparin Protocol, Start date: 03/11/18 17:52:00 CDT Stop date: 04/10/18 17:51:00 CDT, 30 day No Longer Active 03/11/2018 [facility] Alprazolam 0.5 MG Oral Tablet 0.5 mg, 1 tab, Route: PO, ONCE, Dosing Weight 98.8, kg, Start date: 03/11/18 17:35:00 CDT, Stop date: 03/11/18 17:35:00 CDT Inactive 03/11/2018 [facility] Clotrimazole 10 MG/ML Topical Cream [Lotrimin] Notes: For external use only. (Same As: Lotrimin AF, Mycelex) No Longer Active 03/11/2018 [facility] Ondansetron Notes: (Same as: Z conchita) No Longer Active 03/11/2018 [facility] Morphine 4 mg, 2 mL, Route: IV P, Drug form: SOLN, Q2H, Dosing Weight 98.8, kg, PRN Pain Score 7-10, Start date: 03/11/18 16:20:00 CDT, Duration: 30 day, Stop date: 04/10/18 16:19:00 CDT No Longer Active 03/11/2018 [facility] Nitroglycerin Notes: (Same as: Nitroquick, Nitrostat) "Do Not Crush" Sublingual tablet No Longer Active 03/11/2018 [facility] Sodium Chloride 0.9% IV 750 mL 750 mL, Rate: 75 ml/hr, Infuse over: 10 hr, Route: IV, Dosing Weight 98.8 kg, Total Volume: 750, Start date: 03/11/18 16:20:00 CDT, Duration: 10 hr, Stop date: 03/12/18 2:19:00 CDT, 2.21, m2 No Longer Active 03/11/2018 [facility] prasugrel 60 mg, Route: PO, Dr ug form: TAB, ONCE, Dosing Weight 98.8, kg, Priority: NOW, Start date: 03/11/18 16:19:00 CDT, Stop date: 03/11/18 16:19:00 CDT Inactive 03/11/2018 [facility] atorvastatin PO, Daily, 0 Refi ll(s) No Longer Active 03/11/2018 [facility] lisinopril 20 mg oral tablet 2 0 mg = 1 tab, PO, Daily, 0 Refill(s) Active 03/11/2018 [facility] Clotrimazole 10 MG/ML Topical Cream [Lotrimin] 1 appl, TOP, BID, 0 Refill(s) Active 03/11/2018 [facility] Aspirin 81 MG Chewable Tablet 81 mg = 1 tab, PO, Daily, tab, 0 Refill(s) Active 03/11/2018 [facility] terazosin 10 mg oral capsule 1 0 mg = 1 cap, PO, Bedtime, 0 Refill(s) Active 03/11/2018 [facility] citalopram 40 mg oral tablet 2 0 mg = 0.5 tab, PO, Daily, 0 Refill(s) Active 03/11/2018 [facility] Alprazolam 0.5 MG Oral Tablet Notes: With food or milk (Same as: Xanax) Inactive 03/11/2018 [facility] Allergies, Adverse Reactions, Alerts Substance Category Reaction Severity Reaction type Status Date Reported Comments Source Vicodin Assertion Drug allergy Active [facility] Benadryl Assertion Vicodin Drug allergy Active [facility] Immunizations Immunization Date Given Site Status Last Updated Comments Source pneumococcal 13-valent vaccine 03/13/2018 Left Gluteus Medius completed [facility]zy theast, [facility] [place] Results Order Name Results Value Reference Range Date Interpretation Comments Source ELECTROLYTES AGAP 9.7 10.0 - 20.0 03/13/2018 [facility] ELECTROLYTES eGFR 53 03/13/2018 Result Comment: [...] should be multiplied by the estimated BMI. [facility] ELECTROLYTES Sodium Lvl 138 135 - 145 03/13/2018 [facility] ELECTROLYTES CO2 24 24 - 32 03/13/2018 [facility] ELECTROLYTES Potassium Lvl 3.7 3.5 - 5.1 03/13/2018 [facility] ELECTROLYTES Chloride Lvl 108 95 - 109 03/13/2018 [facility] ELECTROLYTES Calcium Lvl 7.8 8.5 - 10.5 03/13/2018 [facility] ELECTROLYTES Glucose Lvl 118 70 - 99 03/13/2018 [facility] ELECTROLYTES BUN 16 7 - 22 03/13/2018 [facility] ELECTROLYTES Creatinine Lvl 1.0 7 0.50 - 1.40 03/13/2018 [facility] HEMATOLOGY Platelet 275 133 - 450 03/13/2018 [facility] HEMATOLOGY RDW 13.1 11.5 - 14.5 03/13/2018 [facility] HEMATOLOGY MPV 7.8 7.4 - 10.4 03/13/2018 [facility] HEMATOLOGY MCHC 36.0 32.0 - 36.0 03/13/2018 [facility] HEMATOLOGY MCV 95.3 80.0 - 98.0 03/13/2018 [facility] MCH 34.3 27.0 - 31.0 03/13/2018 [facility] HEMATOLOGY WBC 11.4 3.7 - 10.4 03/13/2018 [facility] Hgb 13.3 12.0 - 16.0 03/13/2018 [facility] HEMATOLOGY Hct 36.9 36.0 - 48.0 03/13/2018 [facility] HEMATOLOGY RBC 3.87 4.20 - 5.40 03/13/2018 [facility] HEMATOLOGY PTT 30.7 22.9 - 35.8 03/13/2018 [facility] HEMATOLOGY PT 12.8 12.0 - 14.7 03/13/2018 [facility] HEMATOLOGY INR 0.96 0.85 - 1.17 03/13/2018 [facility] HEMATOLOGY PTT 164.1 22.9 - 35.8 03/12/2018 Result Comment: Critical Result(s) saeed samir Taylor at 03/12/2018 14:34 by LINDA. Read back OK. [facility] CHEM PANEL eGFR 62 03/12/2018 Result [...] should be multiplied by the estimated BMI. [facility] CHEM PANEL Total Protein 6.4 6.4 - 8.4 03/12/2018 [facility] CHEM PANEL AGAP 11.0 10.0 - 20.0 03/12/2018 [facility] CHEM PANEL B/C Ratio 17 6 - 25 03/12/2018 [facility] CHEM PANEL Calcium Lvl 8.1 8.5 - 10.5 03/12/2018 [facility] CHEM PANEL Creatinine Lvl 0.95 0.50 - 1.40 03/12/2018 [facility] CHEM PANEL Sodium Lvl 140 135 - 145 03/12/2018 [facility] CHEM PANEL Potassium Lvl 4.0 3.5 - 5.1 03/12/2018 [facility] CHEM PANEL Chloride Lvl 107 95 - 109 03/12/2018 [facility] CHEM PANEL CO2 26 24 - 32 03/12/2018 [facility] CHEM PANEL BUN 16 7 - 22 03/12/2018 [facility] CHEM PANEL Glucose Lvl 113 70 - 99 03/12/2018 [facility] CHEM PANEL Bili Total 0.7 0.2 - 1.3 03/12/2018 [facility] CHEM PANEL Alk Phos 54 39 - 136 03/12/2018 [facility] CHEM PANEL AST 31 0 - 37 03/12/2018 [facility] CHEM PANEL Albumin Lvl 3.3 3.5 - 5.0 03/12/2018 [facility] CHEM PANEL Globulin 3.1 2.7 - 4.2 03/12/2018 [facility] CHEM PANEL A/G Ratio 1.1 0.7 - 1.6 03/12/2018 [facility] CHEM PANEL ALT 49 0 - 65 03/12/2018 [facility] HEMATOLOGY Basophils 0.5 0.0 - 1.0 03/12/2018 [facility] HEMATOLOGY Lymphocytes # 4.5 1.0 - 5.5 03/12/2018 [facility] HEMATOLOGY Segs-Bands # 6.2 1.5 - 8.1 03/12/2018 [facility] HEMATOLOGY Monocytes 8.5 2.0 - 12.0 03/12/2018 [facility] HEMATOLOGY Eosinophils 1.5 0.0 - 4.0 03/12/2018 [facility] HEMATOLOGY Lymphocytes 37.5 20.0 - 40.0 03/12/2018 [facility] HEMATOLOGY Segs 52.0 45.0 - 75.0 03/12/2018 [facility] HEMATOLOGY Eosinophils # 0.2 0.0 - 0.5 03/12/2018 [facility] HEMATOLOGY Monocytes # 1.0 0.0 - 0.8 03/12/2018 [facility] HEMATOLOGY Basophils # 0.1 0.0 - 0.2 03/12/2018 [facility] HEMATOLOGY INR 1.13 0.85 - 1.17 03/12/2018 [facility] HEMATOLOGY PT 14.5 12.0 - 14.7 03/12/2018 [facility] HEMATOLOGY PTT 47.1 22.9 - 35.8 03/12/2018 [facility] HEMATOLOGY MPV 7.8 7.4 - 10.4 03/12/2018 [facility] HEMATOLOGY Platelet 298 133 - 450 03/12/2018 [facility] HEMATOLOGY MCV 94.2 80.0 - 98.0 03/12/2018 [facility] HEMATOLOGY MCH 34.5 27.0 - 31.0 03/12/2018 [facility] HEMATOLOGY RDW 13.3 11.5 - 14.5 03/12/2018 [facility] HEMATOLOGY MCHC 36.7 32.0 - 36.0 03/12/2018 [facility] HEMATOLOGY Hct 38.8 36.0 - 48.0 03/12/2018 [facility] HEMATOLOGY RBC 4.12 4.20 - 5.40 03/12/2018 [facility] HEMATOLOGY Hgb 14.2 12.0 - 16.0 03/12/2018 [facility] HEMATOLOGY WBC 12.0 3.7 - 10.4 03/12/2018 [facility] HEMATOLOGY INR 1.09 0.85 - 1.17 03/12/2018 [facility] HEMATOLOGY PT 14.1 12.0 - 14.7 03/12/2018 [facility] HEMATOLOGY Basophils # 0.1 0.0 - 0.2 03/12/2018 [facility] HEMATOLOGY Lymphocytes # 5.8 1.0 - 5.5 03/12/2018 [facility] HEMATOLOGY Eosinophils # 0.3 0.0 - 0.5 03/12/2018 [facility] HEMATOLOGY Eosinophils 2.4 0.0 - 4.0 03/12/2018 [facility] HEMATOLOGY Basophils 0.9 0.0 - 1.0 03/12/2018 [facility] HEMATOLOGY Segs-Bands # 4.9 1.5 - 8.1 03/12/2018 [facility] HEMATOLOGY Monocytes 9.3 2.0 - 12.0 03/12/2018 [facility] HEMATOLOGY Monocytes # 1.1 0.0 - 0.8 03/12/2018 [facility] HEMATOLOGY Segs 39.9 45.0 - 75.0 03/12/2018 [facility] HEMATOLOGY Lymphocytes 47.5 20.0 - 40.0 03/12/2018 [facility] HEMATOLOGY RDW 13.4 11.5 - 14.5 03/12/2018 [facility] HEMATOLOGY Platelet 316 133 - 450 03/12/2018 [facility] HEMATOLOGY MPV 7.8 7.4 - 10.4 03/12/2018 [facility] HEMATOLOGY Hgb 14.9 12.0 - 16.0 03/12/2018 [facility] HEMATOLOGY MCH 34.2 27.0 - 31.0 03/12/2018 [facility] MCHC 35.7 32.0 - 36.0 03/12/2018 [facility] HEMATOLOGY RBC 4.35 4.20 - 5.40 03/12/2018 [facility] HEMATOLOGY MCV 96.0 80.0 - 98.0 03/12/2018 [facility] HEMATOLOGY WBC 12.2 3.7 - 10.4 03/12/2018 [facility] HEMATOLOGY Hct 41.8 36.0 - 48.0 03/12/2018 [facility] CHEM PANEL eGFR 58 03/11/2018 Result [...] should be multiplied by the estimated BMI. [facility] CHEM PANEL BUN 13 7 - 22 03/11/2018 [facility] CHEM PANEL Glucose Lvl 87 70 - 99 03/11/2018 [facility] CHEM PANEL Alk Phos 60 39 - 136 03/11/2018 [facility] CHEM PANEL Creatinine Lvl 1.00 0.50 - 1.40 03/11/2018 [facility] CHEM PANEL Sodium Lvl 140 135 - 145 03/11/2018 [facility] CHEM PANEL Chloride Lvl 107 95 - 109 03/11/2018 [facility] CHEM PANEL CO2 24 24 - 32 03/11/2018 [facility] CHEM PANEL Total Protein 7.0 6.4 - 8.4 03/11/2018 [facility] CHEM PANEL Calcium Lvl 8.9 8.5 - 10.5 03/11/2018 [facility] CHEM PANEL Potassium Lvl 4.6 3.5 - 5.1 03/11/2018 [facility] CHEM PANEL AST 28 0 - 37 03/11/2018 [facility] CHEM PANEL ALT 51 0 - 65 03/11/2018 [facility] CHEM PANEL Albumin Lvl 3.9 3.5 - 5.0 03/11/2018 [facility] CHEM PANEL Bili Total 0.3 0.2 - 1.3 03/11/2018 [facility] CHEM PANEL A/G Ratio 1.3 0.7 - 1.6 03/11/2018 [facility] CHEM PANEL Globulin 3.1 2.7 - 4.2 03/11/2018 [facility] CHEM PANEL B/C Ratio 13 6 - 25 03/11/2018 [facility] CHEM PANEL AGAP 13.6 10.0 - 20.0 03/11/2018 [facility] HEMATOLOGY Basophils # 0.1 0.0 - 0.2 03/11/2018 [facility] HEMATOLOGY Monocytes # 1.0 0.0 - 0.8 03/11/2018 [facility] HEMATOLOGY Eosinophils # 0.3 0.0 - 0.5 03/11/2018 [facility] HEMATOLOGY Lymphocytes # 4.3 1.0 - 5.5 03/11/2018 [facility] HEMATOLOGY Eosinophils 2.8 0.0 - 4.0 03/11/2018 [facility] HEMATOLOGY Basophils 1.0 0.0 - 1.0 03/11/2018 [facility] Segs-Bands # 5.8 1.5 - 8.1 03/11/2018 [facility] HEMATOLOGY Segs 50.1 45.0 - 75.0 03/11/2018 [facility] Lymphocytes 37.1 20.0 - 40.0 03/11/2018 [facility] Monocytes 9.0 2.0 - 12.0 03/11/2018 [facility] LIPIDS CHD Risk 6.91 3.90 - 5.80 03/11/2018 [facility] LIPIDS LDL (Calculated) 73 <=99 mg/dL 03/11/2018 [facility] LIPIDS VLDL 63 03/11/2018 [facility] LIPIDS HDL 23 >=61 mg/dL 03/11/2018 [facility] LIPIDS Trig 315 <=149 mg/dL 03/11/2018 [facility] LIPIDS Chol 159 <=199 mg/dL 03/11/2018 [facility] Pathology Reports No Data Provided for [...] MRI of the brachial plex us. SL: [id number] 07/25/2018 [facility] [place] [facility] cervical wo contrast MRI Clinical Indication: [...] foramina should be confirmed on CT. SL: [id number] 07/25/2018 [facility] Consultation Notes No Data Provided for This Section Discharge Summaries No Data Provided for This Section History and Physicals No Data Provided for This Section Vital Signs Vital Sign Value Date Comments Source Respitory Rate 15 03/13/2018 [facility] Temperature Oral (F) 98.6 F 03/13/2018 [facility] Systolic (mm Hg) 123 03/13/2018 [facility] Diastolic (mm Hg) 59 03/13/2018 [facility] Systolic (mm Hg) 113 03/13/2018 [facility] Diastolic (mm Hg) 74 03/13/2018 [facility] Respitory Rate 15 03/13/2018 [facility] Systolic (mm Hg) 133 03/13/2018 [facility] Diastolic (mm Hg) 69 03/13/2018 [facility] Respitory Rate 18 03/13/2018 [facility] Temperature Oral (F) 98.9 F 03/13/2018 [facility] Temperature Oral (F) 98.3 F 03/13/2018 [facility] Weight 101.3 03/12/2018 [facility] Height 173.99 cm 03/12/2018 [facility] BMI Calculated 33.46 03/12/2018 [facility] Height 175.2 cm 03/11/2018 [facility] BMI Calculated 32.19 03/11/2018 [facility] Weight 98.8 03/11/2018 [facility] Encounters Location Location Details Encounter Type Encounter Number Reason For Visit Attending Provider ADM Date DC Date Status Source OD [id number] 490 - BRONCHITIS NOS WILBERT CHAVES 08/29/2012 [id number] Ye Thomas 03/12/2018 03/13/2018 [facility] [place] [facility] [id number] Shiv Brambila 07/25/2018 07/26/2018 [facility] Procedures Procedure Code Date Perfomer Comments Source Bilateral inguinal hernia repair [id number] [facility] Cervical laminectomy [id number] [facility] Assessment and Plan Assessment and Plan [...] seen and examined by me with the resident/DIESEL TRAILER MECHANIC/PA and I agree with the History/Exam documented. 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
--- OUTSIDE RECORDS SUMMARY | 2020-03-22 04:57 | XMS REPORT ---
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 706-2) 0.4 0.0-1.0 [facility] CenterIM GRANULOCYTES %2018-04-17 16:57:00* Test Item Value Reference Range Interpretation Comments IM GRANULOCYTES % (test code = IM GRANULOCYTES %) 0.4 0.0- 1.0 [facility] CenterNeutrophils # (Auto)2018-04-17 16:57:00* Test Item Value Reference Range Interpretation Comments Neutrophils # (Auto) (test code = 751-8) 4.8 2.1-6.9 [facility] CenterLymphocytes # (Auto)2018-04-17 16:57:00* Test Item Value Reference Range Interpretation Comments Lymphocytes # (Auto) (test code = 77465-5) 4.0 1.0-3.2 H [facility] CenterMonocytes # (Auto)2018-04-17 16:57:00* Test Item Value Reference Range Interpretation Comments Monocytes # (Auto) (test code = 742-7) 0.7 0.2-0.8 [facility] CenterEosinophils # (Auto)2018-04-17 16:57:00* Test Item Value Reference Range Interpretation Comments Eosinophils # (Auto) (test code = 711-2) 0.2 0.0-0.4 [facility] CenterBasophils # (Auto)2018-04-17 16:57:00* Test Item Value Reference Range Interpretation Comments Basophils # (Auto) (test code = 704-7) 0.0 0.0-0.[address] [facility] CenterAbsolute Immature Granulocyte (auto 2018-04-17 16:57:00* Test Item Value Reference Range Interpretation Comments Absolute Immature Granulocyte (auto (hiral t code = Absolute Immature Granulocyte (auto) 0.04 0-0.1 [facility] CenterELECTROLYTES2018-05-23 09:49:009.7[facility] HospitalZrcnfydtxFOFOOSLSNRVA4768-68-32 09:49:0053[facility] HospitalCblhlkpimFPEAZVUXDYAJ2889-05-00 09:49:26207CHEssex HospitalSdaqzhygxGMEJXMQENJEE7757-13-20 09:49:0024[facility] HospitalELECTROLYBARN[facility] 2018-03-13 09:49:003.7[facility] HospitalXqdujcalqPPRHMWXMZNAX9430-56-01 09:49:42058LKV[facility]2018-05-23 09:49:007.8[facility] HospitalInlhumyykQIXOHGVEDJMW5958-63-82 09:49:29094 [facility] HospitalKxkdievpiHKAIZKPSJBOA2328-29-74 09:49:0016[facility] HospitalFzkqjmkvjONQWJTRMUTVO1507-51-97 09:49:001.07[facility] HospitalOcyulkqraECIGBPHLTA5127-03-70 09:49:67254PI SoutheastHEMATOLOGY 2018-03-13 09:49:0013.1MV[facility] MassachusettsFqhotbgyvIIDNPUXXTU8163-02-72 09:49:007.8[facility] GMSVNXLMCV1356-16-69 09:49:0036.0[facility] HospitalChjkiqblqCDYENSQYTZ1358-93-23 09:49:0095.3MVib[facility] MassachusettsBobvntegyRRUOZRTINY7545-67-43 09:49:00* Test Item Value Reference Range Interpretation Comments MCH (test code = MCH) 34.3 pg 27.0-31.0 [facility] HospitalHcflpgdmpYHPXAJOQQA8483-29-54 09:49:0011.4[facility] HospitalIicgdseueKVGMRCHFBA2091-84-65 09:49:0013.3MV[facility] MassachusettsZptnrdhshGKLRJZJNVE4673-10-56 09:49:0036.9[facility] HospitalHEMATOLOGY 2018-03-13 09:49:003.87[facility] HospitalPbvnaxjwyCHVGGHFUNR7215-21-20 09:49:00* Test Item Value Reference Range Interpretation Comments PTT (test code = PTT) 30.7 s 22.9-35.8 [facility]PdcagwarmDVIHPXDIXT8095-42-88 09:49:00* Test Item Value Reference Range Interpretation Comments PT (test code = PT) 12.8 s 12.0-14.7 MH EhvajxiwpQIRDWCBXTX9666-94-09 09:49:00* Test Item Value Reference Range Interpretation Comments INR (test code = INR) 0.96 1 0.85-1.17 [facility] HospitalKogcyxfuuPSGKEBHMKN5883-24-93 19:05:28* Test Item Value Reference Range Interpretation Comments PTT (test code = PTT) 164.1 s 22.9-35.8 [facility] WUQLZ1454-98-83 12:06:0062 [facility] CSAFZ2333-14-12 12:06:006.4 [facility] FKCUZ5171-18-16 12:06:0011.0 [facility]CHEM PANEL 2018-03-12 12:06:00* Test Item Value Reference Range Interpretation Comments B/C Ratio (test code = B/C Ratio) 17 1 6-25 [facility] KMHCI1413-38-81 12:06:008.1MH SoutheastCHEM MSBAJ7007-19-69 12:06:000.95 [facility] CNYSG8341-00-29 12:06:73316YO SoutheastCHEM PANEL 2018-03-12 12:06:004.0 [facility] OUEJL8460-61-59 12:06:42182ZL [facility] EBLEC0042-95-16 12:06:0026 [facility] BVHVK1921-07-67 12:06:0016 [facility] NXTWX2028-34-03 12:06:09045XP [facility] CKIPA4458-87-57 12:06:000.7 [facility] VQCQL1985-35-98 12:06:0054 [facility]CHE[facility] PANEL 2018-03-12 12:06:0031 [facility] ZURLT6853-65-72 12:06:003.3MH [facility] TXTOO0054-54-80 12:06:003.1MH [facility]CHE[facility] GBMSO0355-95-15 12:06:00* Test Item Value Reference Range Interpretation Comments A/G Ratio (test code = A/G Ratio) 1.1 1 0.7-1.6 [facility] MLLYO2303-65-68 12:06:0049[facility] HospitalWrvdiajiqJCWYKPPUVD8967-67-07 12:06:000.5 KwmniscpyIIXLUHFXST8342-24-96 12:06:004.5 [facility] 2018-03-12 12:06:006.2MH LayrkrwncNCUAHDAJFC6849-20-87 12:06:008.5[facility] GSAXJYBUSS7913-73-37 12:06:001.5[facility] HospitalFlpxteiwcDBELWVZOQS1453-21-04 12:06:0037.5[facility] HospitalAbrrqrdkaUQHLIETRLP1332-07-49 12:06:0052.0[facility] HospitalVzicwquslAECZKBTWOU1584-66-39 12:06:000.2MV[facility] MassachusettsUmzrlklcjOYMROMMNBG7872-88-96 12:06:001.0[facility] HospitalHEMATOLOGY 2018-03-12 12:06:000.1MV[facility] MassachusettsTvdjnepipFLVUPGUKLL4877-97-49 12:06:00* Test Item Value Reference Range Interpretation Comments INR (test code = INR) 1.13 1 0.85-1.17 [facility] HospitalHmmetmjmhIHJPYMPKHJ6929-60-16 12:06:00* Test Item Value Reference Range Interpretation Comments PT (test code = PT) 14.5 s 12.0-14.7 [facility] HospitalZvxwymqfcWZMSLJHUBK7884-86-48 12:06:00* Test Item Value Reference Range Interpretation Comments PTT (test code = PTT) 47.1 s 22.9-35.8 [facility] HospitalBjdntdkzjKEWHRWDRUY7284-08-07 12:06:007.8[facility] HospitalStssrmgjpQGPNSNJBRE9700-66-11 12:06:85464FXMetropolitan State HospitalGndevqhrvAICXXPLOTV1673-25-44 12:06:0094.2MV[facility] MassachusettsHEMATOLOGY 2018-03-12 12:06:00* Test Item Value Reference Range Interpretation Comments MCH (test code = MCH) 34.5 pg 27.0-31.0 [facility] HospitalEnlcxqdwxEQJFLBZNJY4073-28-97 12:06:0013.3MVib[facility] MassachusettsRzswmoyipVWYHRXQGZG8467-11-87 12:06:0036.7[facility] HospitalIlblldklaRSZCBXBLPI2204-11-42 12:06:0038.8[facility] HospitalHEMATOLOGY 2018-03-12 12:06:004.12[facility] HospitalXnyvjmqnoJZUYLXNHAR7493-80-66 12:06:[address] [place] [address] KUPCEFNKPR5422-77-93 12:06:0012.0[facility] HospitalNayrluxfxRMYTCNNCBO5049-75-25 05:20:00* Test Item Value Reference Range Interpretation Comments INR (test code = INR) 1.09 1 0.85-1.17 [facility] HospitalZlgnenccgKGEWKUQUES3470-14-85 05:20:00* Test Item Value Reference Range Interpretation Comments PT (test code = PT) 14.1 s 12.0-14.7 XihfkltxiBCQTXWPELL7635-39-05 01:24:000.1M IxcqvovlhNKTXRDAUYZ8391-46-30 01:24:005.8 HxnnplbkgKKYYKXUWGN2546-65-41 01:24:000.3M [facility] 2018-03-12 01:24:002.4 MmbwfijfePXFHWQCLBI3124-84-53 01:24:000.9[facility] YHGHMPOMAX6608-58-09 01:24:004.9 JhrtfsmfzPZGZDDOPOT4024-55-71 01:24:009.3M CbphtbjedCUQEJJTIVQ4529-85-72 01:24:001.1M QvayozhetXGPXVYKABJ8023-04-13 01:24:0039.9 TruaecixnXBUEDFJKVP0635-19-98 01:24:0047.5 [facility] 2018-03-12 01:24:0013.4 DroyownnhVPXXMYSZNK2386-44-75 01:24:02137LY[facility] Hospital ORYPSVYYOI0222-16-55 01:24:007.8 LthjjswfhQHMBWFTEHT7809-33-49 01:24:0014.9 CslayhrupFSJITVAMYY5638-92-60 01:24:00* Test Item Value Reference Range Interpretation Comments MCH (test code = MCH) 34.2 pg 27.0-31.0 XhneduyxtTEGREJSUKP0071-04-00 01:24:0035.7 UgblngivrLDNZYTGCDV8383-03-39 01:24:004.35 OozdzncmtPUWJZVOPHU7080-59-48 01:24:0096.0 [facility] 2018-03-12 01:24:0012.2M ReffsoifkGPKAHDGRZN4879-13-07 01:24:0041.8 [facility] LYGSV9864-17-83 17:39:0058 [facility] JNTQR0186-36-00 17:39:0013 [facility] ICSGK6346-02-09 17:39:0087 [facility] TUJFF7970-23-10 17:39:0060 [facility] YXCHZ8720-20-00 17:39:001.00 [facility] PANEL 2018-03-11 17:39:89233IR [facility]CHE[facility] UTNQU3243-20-81 17:39:33461EG [facility] CJUTF4281-20-12 17:39:0024 [facility] UMNNA4972-55-83 17:39:007.0 [facility] QHUCJ3941-46-61 17:39:008.9 [facility] ZVBDM0886-40-70 17:39:004.6M [facility] NLRCQ0379-31-16 17:39:0028 [facility]CHEM PANEL 2018-03-11 17:39:0051 [facility] TZSEZ4025-82-77 17:39:003.9[facility] CHEM ECFKO5866-87-34 17:39:000.3MH [facility]CHE[facility] JLKQI3469-95-06 17:39:00* Test Item Value Reference Range Interpretation Comments A/G Ratio (test code = A/G Ratio) 1.3 1 0.7-1.6 [facility] WVAOB9837-80-59 17:39:003.1MV[facility] MassachusettsCHEM LGCFX5713-06-20 17:39:00* Test Item Value Reference Range Interpretation Comments B/C Ratio (test code = B/C Ratio) 13 1 6-25 [facility] UJGTU5258-52-25 17:39:0013.6M ZykimwzpaJAOXQVUOEW3318-84-98 17:39:000.1M JtvwamkcuJZYLIDTYNY2982-03-62 17:39:001.0 [facility] 2018-03-11 17:39:000.3M XszcgdrpqRFRHUIBSFD7308-74-53 17:39:004.[address] [place] [address] UOGHMURNMO6777-25-58 17:39:002.8 KlmmjhinaLWPBNVWSAN1639-79-25 17:39:001.0 FwywizjjuBUKSFBBODR1480-55-58 17:39:005.8 GycywpskyJTDJITTXYQ2411-96-67 17:39:0050.1M OjdguzpqlLMHFABQJGS6238-06-41 17:39:0037.[facility] SoutheastHEMATOLOGY 2018-03-11 17:39:009.0 ClmasjxynRJQYSQ9159-23-16 17:39:00* Test Item Value Reference Range Interpretation Comments CHD Risk (test code = CHD Risk) 6.91 1 3.90-5.80 KjoktykqdUNXGSL7378-97-43 17:39:0073 TyuhcrrljSLQPVI0491-83-96 17:39:00* Test Item Value Reference Range Interpretation Comments VLDL (test code = VLDL) 63 1 [facility] HospitalOubaudcloNEWIYB6277-18-88 17:39:0023[facility] HospitalDukhkhuidTRJJBE7270-72-52 17:39:58575 [facility] HospitalObtjinaqeHGWSTU5707-42-80 17:39:48248GLBay[facility] Franklin Medical Centerite Blood Hhzyd4626-63-83 21:48:00* Test Item Value Reference Range Interpretation Comments White Blood Count (test code = 6690-2) 10.71 4.8-10.8 [facility] CenterRed Blood Jfcft4432-73-82 21:48:00* Test Item Value Reference Range Interpretation Comments Red Blood Count (test code = 789-8) 5.04 4.3-5.7 [facility] CenterHemoglobin2018-04-25 21:48:00* Test Item Value Reference Range Interpretation Comments Hemoglobin (test code = 47568-0) 17.3 14.0-18.0 LIPEMIC SPECIMEN, PERFORMED SALINE SPECIMEN AND RAN 3 TIMES FOR CONSISTENCYCitizens Medical CenterHematocrit2018-04-25 21:48:00* Test Item Value Reference Range Interpretation Comments Hematocrit (test code = 4544-3) 46.1 38.2-49.6 LIPEMIC SPECIMEN, PERFORMED SALINE SPECIMEN AND RAN 3 TIMES FOR CONSISTENCYCitizens Medical CenterMean Corpuscular Pbnkrv2878-83-88 21:48:00* Test Item Value Reference Range Interpretation Comments Mean Corpuscular Volume (test code = 787-2) 91.5 81-99 [facility] CenterMean Corpuscular Rqpcuwnfle2226-74-67 21:48:00* Test Item Value Reference Range Interpretation Comments Mean Corpuscular Hemoglobin (test code = 785-6) 34.3 28-32 H [facility] Corpuscular Hemoglobin Concent 2018-02-13 21:48:00* Test Item Value Reference Range Interpretation Comments Mean Corpuscular Hemoglobin Concent (test code = 786-4) 37.5 31-35 H [facility] CenterRed Cell Distribution Jlije7817-70-61 21:48:00* Test Item Value Reference Range Interpretation Comments Red Cell Distribution Width (test code = 86710-1) 14.9 11.7 -14.4 H [facility] CenterPlatelet Eonxg4357-64-22 21:48:00* Test Item Value Reference Range Interpretation Comments Platelet Count (test code = 777-3) 390 140-360 H [facility] CenterNeutrophils (%) (Auto)2018-02-13 21:48:00 * Test Item Value Reference Range Interpretation Comments Neutrophils (%) (Auto) (test code = 32369-2) 42.3 38.7-80.0 [facility] CenterLymphocytes (%) (Auto)2018-02-13 21:48:00 * Test Item Value Reference Range Interpretation Comments Lymphocytes (%) (Auto) (test code = 736-9) 43.3 18.0-39.1 H [facility] CenterMonocytes (%) (Auto)2018-02-13 21:48:00* Test Item Value Reference Range Interpretation Comments Monocytes (%) (Auto) (test code = 5905-5) 10.7 4.4-11.3 [facility] CenterEosinophils (%) (Auto)2018-02-13 21:48:00 * Test Item Value Reference Range Interpretation Comments Eosinophils (%) (Auto) (test code = 713-8) 2.5 0.0-6.0 [facility] CenterBasophils (%) (Auto)2018-02-13 21:48:00* Test Item Value Reference Range Interpretation Comments Basophils (%) (Auto) (test code = 706-2) 0.7 0.0-1.0 [facility] CenterIM GRANULOCYTES %2018-02-13 21:48:00* Test Item Value Reference Range Interpretation Comments IM GRANULOCYTES % (test code = IM GRANULOCYTES %) 0.5 0.0- 1.0 [facility] CenterNeutrophils # (Auto)2018-02-13 21:48:00* Test Item Value Reference Range Interpretation Comments Neutrophils # (Auto) (test code = 751-8) 4.5 2.1-6.9 [facility] CenterLymphocytes # (Auto)2018-02-13 21:48:00* Test Item Value Reference Range Interpretation Comments Lymphocytes # (Auto) (test code = 64949-2) 4.6 1.0-3.2 H [facility] CenterMonocytes # (Auto)2018-02-13 21:48:00* Test Item Value Reference Range Interpretation Comments Monocytes # (Auto) (test code = 742-7) 1.2 0.2-0.8 H [facility] CenterEosinophils # (Auto)2018-02-13 21:48:00* Test Item Value Reference Range Interpretation Comments Eosinophils # (Auto) (test code = 711-2) 0.3 0.0-0.4 [facility] CenterBasophils # (Auto)2018-02-13 21:48:00* Test Item Value Reference Range Interpretation Comments Basophils # (Auto) (test code = 704-7) 0.1 0.0-0.1 [facility] CenterAbsolute Immature Granulocyte (auto 2018-02-13 21:48:00* Test Item Value Reference Range Interpretation Comments Absolute Immature Granulocyte (auto (hiral t code = Absolute Immature Granulocyte (auto) 0.05 0-0.1 [facility] CenterB-Type Natriuretic Hvpsadi7685-20-74 21:46:00* Test Item Value Reference Range Interpretation Comments B-Type Natriuretic Peptide (test code = 30135-2) -10.0 0-100 [facility] CenterB-Type Natriuretic Mtoabib3347-33-98 21:46:00* Test Item Value Reference Range Interpretation Comments B-Type Natriuretic Peptide (test code = 16232-9) -10.0 0-100 [facility] CenterCreatine Kinase TX1887-18-97 21:29:00* Test Item Value Reference Range Interpretation Comments Creatine Kinase MB (test code = 96865-6) 3.20 0-5.0 [facility] CenterTroponin V0928-16-06 21:29:00* Test Item Value Reference Range Interpretation Comments Troponin I (test code = LJN3946) 0.008 0-0.300 [facility] CenterD-Dimer Quantitative (PE/DVT)2018-02-13 21:26:00* Test Item Value Reference Range Interpretation Comments D-Dimer Quantitative (PE/DVT) (test code = 10119-0) 0.91 0. 00-0.45 H [facility] CenterD-Dimer Quantitative (PE/DVT)2018-02-13 21:26:00* Test Item Value Reference Range Interpretation Comments D-Dimer Quantitative (PE/DVT) (test code = 45957-0) 0.91 0. 00-0.45 [facility] Ohnql7499-87-65 21:25:00* Test Item Value Reference Range Interpretation Comments Sodium Level (test code = 2951-2) 139 136-145 [facility] CenterPotassium Worrb0688-48-94 21:25:00* Test Item Value Reference Range Interpretation Comments Potassium Level (test code = 2823-3) 3.8 3.5-5.1 [facility] CenterChloride Khdjj1282-09-20 21:25:00* Test Item Value Reference Range Interpretation Comments Chloride Level (test code = 2075-0) 106 98-107 [facility] CenterCarbon Dioxide Yudjw6159-13-52 21:25:00* Test Item Value Reference Range Interpretation Comments Carbon Dioxide Level (test code = 2028-9) 22 22-29 [facility] CenterAnion Cbe0371-21-29 21:25:00* Test Item Value Reference Range Interpretation Comments Anion Gap (test code = 29983-1) 14.8 8-16 [facility] CenterBlood Urea Ilofeloq5693-04-11 21:25:00* Test Item Value Reference Range Interpretation Comments Blood Urea Nitrogen (test code = 3094-0) 15 7-26 [facility] CenterCreatinine2018-04-25 21:25:00* Test Item Value Reference Range Interpretation Comments Creatinine (test code = 2160-0) 0.95 0.72-1.25 [facility] CenterBUN/Creatinine Enpzp4153-93-75 21:25:00* Test Item Value Reference Range Interpretation Comments BUN/Creatinine Ratio (test code = 3097-3) 16 6-25 [facility] CenterEstimat Glomerular Filtration Rate 2018-02-13 21:25:00* Test Item Value Reference Range Interpretation Comments Estimat Glomerular Filtration Rate (test code = 05249-1) 60- >60 Ranges were taken from the National Kidney Disease Education Program and the [facility] Foundation literature.Reference ranges:60 or greater: Wbwddd81-38 ( for 3 consecutive months): Chronic kidney disease 15 or less: Kidney failureCitizens Medical CenterGlucose Oczza8016-87-87 21:25:00* Test Item Value Reference Range Interpretation Comments Glucose Level (test code = EKC0502) 106 74-118 [facility] CenterCalcium Tshhm7523-28-74 21:25:00* Test Item Value Reference Range Interpretation Comments Calcium Level (test code = 69698-5) 9.4 8.4-10.2 [facility] CenterTotal Zzumsfpnq6432-71-26 21:25:00* Test Item Value Reference Range Interpretation Comments Total Bilirubin (test code = 1975-2) 0.4 0.2-1.2 [facility] CenterAspartate Amino Transf (AST/SGOT) 2018-02-13 21:25:00* Test Item Value Reference Range Interpretation Comments Aspartate Amino Transf (AST/SGOT) (test code = Aspartate Amino Transf (AST/SGOT)) 27 5-34 [facility] CenterAlanine Aminotransferase (ALT/SGPT) 2018-02-13 21:25:00* Test Item Value Reference Range Interpretation Comments Alanine Aminotransferase (ALT/SGPT) (test code = 1742-6) 38 0-55 [facility] CenterTotal Juytwxv2883-51-06 21:25:00* Test Item Value Reference Range Interpretation Comments Total Protein (test code = 2885-2) 7.4 6.5-8.1 [facility] CenterAlbumin2018-04-25 21:25:00* Test Item Value Reference Range Interpretation Comments Albumin (test code = 1751-7) 3.8 3.5-5.0 [facility] CenterGlobulin2018-04-25 21:25:00* Test Item Value Reference Range Interpretation Comments Globulin (test code = 46242-4) 3.6 2.3-3.5 H [facility] CenterAlbumin/Globulin Xhhxv8945-82-99 21:25:00 * Test Item Value Reference Range Interpretation Comments Albumin/Globulin Ratio (test code = 1759-0) 1.1 0.8-2.0 [facility] CenterAlkaline Vkywhwoltcu4236-76-53 21:25:00* Test Item Value Reference Range Interpretation Comments Alkaline Phosphatase (test code = 6768-6) 63 40-150 [facility] CenterCreatine Drcahy6761-72-23 21:25:00* Test Item Value Reference Range Interpretation Comments Creatine Kinase (test code = 2157-6) 172 30-200 [facility] CenterActivated Partial Thromboplast Time 2018-02-13 21:13:00* Test Item Value Reference Range Interpretation Comments Activated Partial Thromboplast Time (test code = 84046-3) 27.4 23.8-35.5 [facility] CenterActivated Partial Thromboplast Time 2018-02-13 21:13:00* Test Item Value Reference Range Interpretation Comments Activated Partial Thromboplast Time (test code = 96694-7) 27.4 23.8-35.5 [facility] CenterProthrombin Xelw3919-75-02 21:12:00* Test Item Value Reference Range Interpretation Comments Prothrombin Time (test code = 5902-2) 12.5 11.9-14.5 [facility] CenterProthromb Time International Ratio 2018-02-13 21:12:00* Test Item Value Reference Range Interpretation Comments Prothromb Time International Ratio (test code = 6301-6) 1.01 Oral Anticoagulant Therapy INR Values:1. Low Intensity Therapy 1.5 - 2.02 . Moderate Intensity Therapy 2.0 - 3.03. High Intensity Therapy(1) 2.5 - 3. 54. High Intensity Therapy(2) 3.0 - 4.05. Panic Value INR > 5.0 [facility] CenterProthrombin Vvki7074-30-66 21:12:00* Test Item Value Reference Range Interpretation Comments Prothrombin Time (test code = 5902-2) 12.5 11.9-14.5 [facility] CenterProthromb Time International Ratio 2018-02-13 21:12:00* Test Item Value Reference Range Interpretation Comments Prothromb Time International Ratio (test code = 6301-6) 1.01 Oral Anticoagulant Therapy INR Values:1. Low Intensity Therapy 1.5 - 2.02 . Moderate Intensity Therapy 2.0 - 3.03. High Intensity Therapy(1) 2.5 - 3. 54. High Intensity Therapy(2) 3.0 - 4.05. Panic Value INR > 5.0 [facility] CenterCreatine Kinase XD2028-42-10 07:42:00* Test Item Value Reference Range Interpretation Comments Creatine Kinase MB (test code = 81189-2) 3.80 0-5.0 [facility] CenterTroponin C8708-56-26 07:42:00* Test Item Value Reference Range Interpretation Comments Troponin I (test code = WZM4201) -0.001 0-0.300 [facility]odium Qcbln9020-68-87 07:39:00* Test Item Value Reference Range Interpretation Comments Sodium Level (test code = 2951-2) 141 136-145 [facility] CenterPotassium Izknw6185-73-11 07:39:00* Test Item Value Reference Range Interpretation Comments Potassium Level (test code = 2823-3) 4.2 3.5-5.1 [facility] CenterChloride Yqgkb6715-06-13 07:39:00* Test Item Value Reference Range Interpretation Comments Chloride Level (test code = 2075-0) 112 98-107 H [facility] CenterCarbon Dioxide Yfoxp0415-13-35 07:39:00* Test Item Value Reference Range Interpretation Comments Carbon Dioxide Level (test code = 2028-9) 22 22-29 [facility] CenterAnion Bef5614-10-66 07:39:00* Test Item Value Reference Range Interpretation Comments Anion Gap (test code = 42045-0) 11.2 8-16 [facility] CenterBlood Urea Rpqphdbm1908-61-48 07:39:00* Test Item Value Reference Range Interpretation Comments Blood Urea Nitrogen (test code = 3094-0) 14 7-26 [facility] CenterCreatinine2018-02-26 07:39:00* Test Item Value Reference Range Interpretation Comments Creatinine (test code = 2160-0) 0.82 0.72-1.25 [facility] CenterBUN/Creatinine Grbls9913-73-30 07:39:00* Test Item Value Reference Range Interpretation Comments BUN/Creatinine Ratio (test code = 3097-3) 17 6-25 [facility] CenterEstimat Glomerular Filtration Rate 2017-12-17 07:39:00* Test Item Value Reference Range Interpretation Comments Estimat Glomerular Filtration Rate (test code = 25683-2) 60- >60 Ranges were taken from the National Kidney Disease Education Program and the [facility] literature.Reference ranges:60 or greater: Nmjxxh82-53 ( for 3 consecutive months): Chronic kidney disease 15 or less: Kidney failureCHI Graham Regional Medical CenterGlucose Fdklv5154-96-56 07:39:00* Test Item Value Reference Range Interpretation Comments Glucose Level (test code = NXU8628) 116 74-118 [facility] CenterCalcium Xqqab9231-87-40 07:39:00* Test Item Value Reference Range Interpretation Comments Calcium Level (test code = 86860-3) 8.3 8.4-10.2 L [facility] CenterTotal Oxldqbzta0613-73-69 07:39:00* Test Item Value Reference Range Interpretation Comments Total Bilirubin (test code = 1975-2) 0.4 0.2-1.2 [facility] CenterAspartate Amino Transf (AST/SGOT) 2017-12-17 07:39:00* Test Item Value Reference Range Interpretation Comments Aspartate Amino Transf (AST/SGOT) (test code = Aspartate Amino Transf (AST/SGOT)) 31 5-34 [facility] CenterAlanine Aminotransferase (ALT/SGPT) 2017-12-17 07:39:00* Test Item Value Reference Range Interpretation Comments Alanine Aminotransferase (ALT/SGPT) (test code = 1742-6) 43 0-55 [facility] CenterTotal Paegwtz3881-09-14 07:39:00* Test Item Value Reference Range Interpretation Comments Total Protein (test code = 2885-2) 5.7 6.5-8.1 L [facility] CenterAlbumin2018-02-26 07:39:00* Test Item Value Reference Range Interpretation Comments Albumin (test code = 1751-7) 3.4 3.5-5.0 L [facility] CenterGlobulin2018-02-26 07:39:00* Test Item Value Reference Range Interpretation Comments Globulin (test code = 31376-1) 2.3 2.3-3.5 [facility] CenterAlbumin/Globulin Zyfgm9776-25-38 07:39:00 * Test Item Value Reference Range Interpretation Comments Albumin/Globulin Ratio (test code = 1759-0) 1.5 0.8-2.0 [facility] CenterAlkaline Opyyulazmsi7751-72-71 07:39:00* Test Item Value Reference Range Interpretation Comments Alkaline Phosphatase (test code = 6768-6) 44 40-150 [facility] CenterTriglycerides Ggwlm5061-12-51 07:39:00* Test Item Value Reference Range Interpretation Comments Triglycerides Level (test code = 2571-8) 133 0-149 [facility] CenterCholesterol Jymyo1879-12-28 07:39:00* Test Item Value Reference Range Interpretation Comments Cholesterol Level (test code = 2093-3) 131 0-199 Less than 200 mg/dL Low Egvl409 - 239 mg/dL Borderline Heto434 m g/dl and greater High Risk [facility] CenterLDL Gbotmnbqykz9144-19-99 07:39:00* Test Item Value Reference Range Interpretation Comments LDL Cholesterol (test code = 2089-1) 80 60-130 [facility] CenterHDL Fnlfwehzwei7354-63-61 07:39:00* Test Item Value Reference Range Interpretation Comments HDL Cholesterol (test code = 2085-9) 24 40-60 L [facility] CenterCholesterol/HDL Udxne2885-15-00 07:39:00 * Test Item Value Reference Range Interpretation Comments Cholesterol/HDL Ratio (test code = 9830-1) 5.5 3.9-4.7 H [facility] CenterTriglycerides Kzwmp4268-64-10 07:39:00* Test Item Value Reference Range Interpretation Comments Triglycerides Level (test code = 2571-8) 133 0-149 [facility] CenterCholesterol Kqdif5997-22-78 07:39:00* Test Item Value Reference Range Interpretation Comments Cholesterol Level (test code = 2093-3) 131 0-199 Less than 200 mg/dL Low Upna865 - 239 mg/dL Borderline Bsgs569 m g/dl and greater High Risk [facility] CenterLDL Upbzkfesjcb3876-99-10 07:39:00* Test Item Value Reference Range Interpretation Comments LDL Cholesterol (test code = 2089-1) 80 60-130 [facility] Dlpobsxtgiu9475-36-55 07:39:00* Test Item Value Reference Range Interpretation Comments HDL Cholesterol (test code = 2085-9) 24 40-60 L [facility] CenterCholesterol/HDL Uksed5631-88-90 07:39:00 * Test Item Value Reference Range Interpretation Comments Cholesterol/HDL Ratio (test code = 9830-1) 5.5 3.9-4.7 H [facility] CenterTriglycerides Rjqkq9519-69-82 07:39:00* Test Item Value Reference Range Interpretation Comments Triglycerides Level (test code = 2571-8) 133 0-149 [facility] CenterCholesterol Btnoc6133-09-22 07:39:00* Test Item Value Reference Range Interpretation Comments Cholesterol Level (test code = 2093-3) 131 0-199 Less than 200 mg/dL Low Exch953 - 239 mg/dL Borderline Zdxd866 m g/dl and greater High Risk [facility] CenterLDL Noyinlppejx3476-40-02 07:39:00* Test Item Value Reference Range Interpretation Comments LDL Cholesterol (test code = 2089-1) 80 60-130 [facility] Dcajnmuqnze1907-63-41 07:39:00* Test Item Value Reference Range Interpretation Comments HDL Cholesterol (test code = 2085-9) 24 40-60 L [facility] CenterCholesterol/HDL Hpqii9849-46-19 07:39:00 * Test Item Value Reference Range Interpretation Comments Cholesterol/HDL Ratio (test code = 9830-1) 5.5 3.9-4.7 H [facility] CenterCreatine Ftolhh9112-34-82 07:32:00* Test Item Value Reference Range Interpretation Comments Creatine Kinase (test code = 2157-6) 261 30-200 H [facility] CenterWhite Blood Acgko1206-22-61 07:22:00* Test Item Value Reference Range Interpretation Comments White Blood Count (test code = 6690-2) 8.14 4.8-10.8 [facility] CenterRed Blood Vjone7855-87-00 07:22:00* Test Item Value Reference Range Interpretation Comments Red Blood Count (test code = 789-8) 3.40 4.3-5.7 L [facility] CenterHemoglobin2018-02-26 07:22:00* Test Item Value Reference Range Interpretation Comments Hemoglobin (test code = 75909-2) 11.7 14.0-18.0 L [facility] CenterHematocrit2018-02-26 07:22:00* Test Item Value Reference Range Interpretation Comments Hematocrit (test code = 4544-3) 31.2 38.2-49.6 L [facility] CenterMean Corpuscular Fbdxkt3989-10-21 07:22:00* Test Item Value Reference Range Interpretation Comments Mean Corpuscular Volume (test code = 787-2) 91.8 81-99 [facility] CenterMean Corpuscular Bpetlepluc0039-52-41 07:22:00* Test Item Value Reference Range Interpretation Comments Mean Corpuscular Hemoglobin (test code = 785-6) 34.4 28-32 H [facility] CenterMean Corpuscular Hemoglobin Concent 2017-12-17 07:22:00* Test Item Value Reference Range Interpretation Comments Mean Corpuscular Hemoglobin Concent (test code = 786-4) 37.5 31-35 H [facility] CenterRed Cell Distribution Ycnhc6840-07-38 07:22:00* Test Item Value Reference Range Interpretation Comments Red Cell Distribution Width (test code = 50733-4) 13.0 11.7 -14.4 [facility] CenterPlatelet Wuktq4272-09-64 07:22:00* Test Item Value Reference Range Interpretation Comments Platelet Count (test code = 777-3) 310 140-360 [facility] CenterNeutrophils (%) (Auto)2017-12-17 07:22:00 * Test Item Value Reference Range Interpretation Comments Neutrophils (%) (Auto) (test code = 27228-5) 47.5 38.7-80.0 [facility] CenterLymphocytes (%) (Auto)2017-12-17 07:22:00 * Test Item Value Reference Range Interpretation Comments Lymphocytes (%) (Auto) (test code = 736-9) 40.0 18.0-39.1 H [facility] CenterMonocytes (%) (Auto)2017-12-17 07:22:00* Test Item Value Reference Range Interpretation Comments Monocytes (%) (Auto) (test code = 5905-5) 7.9 4.4-11.3 [facility] CenterEosinophils (%) (Auto)2017-12-17 07:22:00 * Test Item Value Reference Range Interpretation Comments Eosinophils (%) (Auto) (test code = 713-8) 3.7 0.0-6.0 [facility] CenterBasophils (%) (Auto)2017-12-17 07:22:00* Test Item Value Reference Range Interpretation Comments Basophils (%) (Auto) (test code = 706-2) 0.7 0.0-1.0 [facility] CenterIM GRANULOCYTES %2017-12-17 07:22:00* Test Item Value Reference Range Interpretation Comments IM GRANULOCYTES % (test code = IM GRANULOCYTES %) 0.2 0.0- 1.0 [facility] CenterNeutrophils # (Auto)2017-12-17 07:22:00* Test Item Value Reference Range Interpretation Comments Neutrophils # (Auto) (test code = 751-8) 3.9 2.1-6.9 [facility] CenterLymphocytes # (Auto)2017-12-17 07:22:00* Test Item Value Reference Range Interpretation Comments Lymphocytes # (Auto) (test code = 47464-1) 3.3 1.0-3.2 H [facility] CenterMonocytes # (Auto)2017-12-17 07:22:00* Test Item Value Reference Range Interpretation Comments Monocytes # (Auto) (test code = 742-7) 0.6 0.2-0.8 [facility] CenterEosinophils # (Auto)2017-12-17 07:22:00* Test Item Value Reference Range Interpretation Comments Eosinophils # (Auto) (test code = 711-2) 0.3 0.0-0.4 [facility] CenterBasophils # (Auto)2017-12-17 07:22:00* Test Item Value Reference Range Interpretation Comments Basophils # (Auto) (test code = 704-7) 0.1 0.0-0.1 [facility] CenterAbsolute Immature Granulocyte (auto 2017-12-17 07:22:00* Test Item Value Reference Range Interpretation Comments Absolute Immature Granulocyte (auto (hiral t code = Absolute Immature Granulocyte (auto) 0.02 0-0.1 [facility] CenterUrine [id number] 21:30:00* Test Item Value Reference Range Interpretation Comments Urine WBC (test code = 5821-4) 0-5 0-5 [facility] CenterUrine BKX1783-29-09 21:30:00* Test Item Value Reference Range Interpretation Comments Urine RBC (test code = 83724-2) 0-5 0-5 [facility] CenterUrine Kpgtvaju6779-25-36 21:30:00* Test Item Value Reference Range Interpretation Comments Urine Bacteria (test code = 43293-4) RARE NONE [facility] CenterUrine Epithelial Kttzr4902-24-43 21:30:00 * Test Item Value Reference Range Interpretation Comments Urine Epithelial Cells (test code = 18539-4) FEW NONE [facility] CenterUrine DIY5166-05-02 21:30:00* Test Item Value Reference Range Interpretation Comments Urine WBC (test code = 5821-4) 0-5 0-5 [facility] CenterU[facility] VOY5557-52-28 21:30:00* Test Item Value Reference Range Interpretation Comments Urine RBC (test code = 66756-9) 0-5 0-5 [facility] CenterUrine Mtvqwzca2564-71-11 21:30:00* Test Item Value Reference Range Interpretation Comments Urine Bacteria (test code = 12221-4) RARE NONE [facility] CenterUrine Epithelial Xmcrf7248-26-21 21:30:00 * Test Item Value Reference Range Interpretation Comments Urine Epithelial Cells (test code = 05855-2) FEW NONE [facility] CenterU[facility] RYW6409-82-52 21:30:00* Test Item Value Reference Range Interpretation Comments Urine WBC (test code = 5821-4) 0-5 0-5 [facility] CenterU[facility] GQU9100-40-99 21:30:00* Test Item Value Reference Range Interpretation Comments Urine RBC (test code = 06031-1) 0-5 0-5 [facility] CenterUrine Dnaohdpr3120-49-13 21:30:00* Test Item Value Reference Range Interpretation Comments Urine Bacteria (test code = 35278-9) RARE NONE [facility] CenterUrine Epithelial Mcwcg1190-95-11 21:30:00 * Test Item Value Reference Range Interpretation Comments Urine Epithelial Cells (test code = 75850-9) FEW NONE [facility] CenterUrine Jexwe5739-71-22 21:13:00* Test Item Value Reference Range Interpretation Comments Urine Color (test code = 5778-6) YELLOW YELLOW [facility] CenterUrine Wdwrgfy5522-92-01 21:13:00* Test Item Value Reference Range Interpretation Comments Urine Clarity (test code = 18306-7) CLEAR CLEAR [facility] CenterUrine Specific Tvqtkao4406-26-65 21:13:00 * Test Item Value Reference Range Interpretation Comments Urine Specific [place] (test code = 5811-5) 1.015 1.010-1.02 5 [facility] CenterUrine vB5327-11-13 21:13:00* Test Item Value Reference Range Interpretation Comments Urine pH (test code = 26018-7) 5 5-7 [facility] CenterU[facility] Leukocyte Vcevvkjd9313-77-52 21:13:00* Test Item Value Reference Range Interpretation Comments Urine Leukocyte Esterase (test code = 5799-2) NEGATIVE NEGATIVE [facility] CenterU[facility] Rqkvnah0036-34-64 21:13:00* Test Item Value Reference Range Interpretation Comments Urine Nitrite (test code = 81438-5) NEGATIVE NEGATIVE [facility] CenterU[facility] Dvcyswd6109-39-53 21:13:00* Test Item Value Reference Range Interpretation Comments Urine Protein (test code = 5804-0) NEGATIVE NEGATIVE [facility] Glucose (UA)2017-12-15 21:13:00* Test Item Value Reference Range Interpretation Comments Urine Glucose (UA) (test code = 2349-9) NEGATIVE NEGATIVE [facility] Byysxlj8324-17-90 21:13:00* Test Item Value Reference Range Interpretation Comments Urine Ketones (test code = 27015-9) NEGATIVE NEGATIVE [facility] Eymriimxcsjh7320-02-99 21:13:00* Test Item Value Reference Range Interpretation Comments Urine Urobilinogen (test code = 52132-8) 0.2 0.2-1 [facility] CenterU[facility] Zfmzbthfm4195-32-72 21:13:00* Test Item Value Reference Range Interpretation Comments Urine Bilirubin (test code = 1978-6) NEGATIVE NEGATIVE [facility] CenterU[facility] Rycej3803-79-36 21:13:00* Test Item Value Reference Range Interpretation Comments Urine Blood (test code = 78798-7) NEGATIVE NEGATIVE [facility] CenterU[facility] Mhqab6822-02-86 21:13:00* Test Item Value Reference Range Interpretation Comments Urine Color (test code = 5778-6) YELLOW YELLOW [facility] CenterU[facility] Ribzmfb9909-02-05 21:13:00* Test Item Value Reference Range Interpretation Comments Urine Clarity (test code = 47209-2) CLEAR CLEAR [facility] CenterU[facility] Specific Llskgsx4793-96-32 21:13:00 * Test Item Value Reference Range Interpretation Comments Urine Specific [place] (test code = 5811-5) 1.015 1.010-1.02 5 [facility] CenterU[facility] kI6386-43-74 21:13:00* Test Item Value Reference Range Interpretation Comments Urine pH (test code = 21898-9) 5 5-7 [facility] Leukocyte Cueejjkb2570-80-69 21:13:00* Test Item Value Reference Range Interpretation Comments Urine Leukocyte Esterase (test code = 5799-2) NEGATIVE NEGATIVE [facility] Xzbyzzm9745-14-32 21:13:00* Test Item Value Reference Range Interpretation Comments Urine Nitrite (test code = 53172-9) NEGATIVE NEGATIVE [facility] Ogjpqir7349-99-50 21:13:00* Test Item Value Reference Range Interpretation Comments Urine Protein (test code = 5804-0) NEGATIVE NEGATIVE [facility] Glucose (UA)2017-12-15 21:13:00* Test Item Value Reference Range Interpretation Comments Urine Glucose (UA) (test code = 2349-9) NEGATIVE NEGATIVE [facility] Sbshxhe5803-73-12 21:13:00* Test Item Value Reference Range Interpretation Comments Urine Ketones (test code = 56208-4) NEGATIVE NEGATIVE [facility] Jwiqvfxkguvw3355-61-86 21:13:00* Test Item Value Reference Range Interpretation Comments Urine Urobilinogen (test code = 58421-2) 0.2 0.2-1 [facility] Otirtpmmg5195-27-53 21:13:00* Test Item Value Reference Range Interpretation Comments Urine Bilirubin (test code = 1978-6) NEGATIVE NEGATIVE [facility] Kjvbz3676-90-59 21:13:00* Test Item Value Reference Range Interpretation Comments Urine Blood (test code = 94538-5) NEGATIVE NEGATIVE [facility] Czfth9606-33-30 21:13:00* Test Item Value Reference Range Interpretation Comments Urine Color (test code = 5778-6) YELLOW YELLOW [facility] Fehbbtz1276-08-30 21:13:00* Test Item Value Reference Range Interpretation Comments Urine Clarity (test code = 92735-9) CLEAR CLEAR [facility] CenterU[facility] Specific Qgzxlba2107-47-49 21:13:00 * Test Item Value Reference Range Interpretation Comments Urine Specific [place] (test code = 5811-5) 1.015 1.010-1.02 5 [facility] mG2717-79-91 21:13:00* Test Item Value Reference Range Interpretation Comments Urine pH (test code = 21226-7) 5 5-7 [facility] CenterU[facility] Leukocyte Dspwwoes2983-96-63 21:13:00* Test Item Value Reference Range Interpretation Comments Urine Leukocyte Esterase (test code = 5799-2) NEGATIVE NEGATIVE [facility] Szmoypg2716-38-62 21:13:00* Test Item Value Reference Range Interpretation Comments Urine Nitrite (test code = 78285-7) NEGATIVE NEGATIVE [facility] Jpxmmga7851-30-36 21:13:00* Test Item Value Reference Range Interpretation Comments Urine Protein (test code = 5804-0) NEGATIVE NEGATIVE [facility] Glucose (UA)2017-12-15 21:13:00* Test Item Value Reference Range Interpretation Comments Urine Glucose (UA) (test code = 2349-9) NEGATIVE NEGATIVE [facility] Txjvjcf8767-62-24 21:13:00* Test Item Value Reference Range Interpretation Comments Urine Ketones (test code = 93314-9) NEGATIVE NEGATIVE [facility] Nzpxaiflopdk3577-09-75 21:13:00* Test Item Value Reference Range Interpretation Comments Urine Urobilinogen (test code = 06363-9) 0.2 0.2-1 [facility] CenterU[facility] Sfcupfjbj2729-74-97 21:13:00* Test Item Value Reference Range Interpretation Comments Urine Bilirubin (test code = 1978-6) NEGATIVE NEGATIVE [facility] Imlyr3883-60-24 21:13:00* Test Item Value Reference Range Interpretation Comments Urine Blood (test code = 60451-0) NEGATIVE NEGATIVE [facility] CenterProthrombin Akgw2946-86-54 20:29:00* Test Item Value Reference Range Interpretation Comments Prothrombin Time (test code = 5902-2) 13.1 11.9-14.5 [facility] CenterProthromb Time International Ratio 2017-12-15 20:29:00* Test Item Value Reference Range Interpretation Comments Prothromb Time International Ratio (test code = 6301-6) 1.07 Oral Anticoagulant Therapy INR Values:1. Low Intensity Therapy 1.5 - 2.02 . Moderate Intensity Therapy 2.0 - 3.03. High Intensity Therapy(1) 2.5 - 3. 54. High Intensity Therapy(2) 3.0 - 4.05. Panic Value INR > 5.0 [facility] CenterActivated Partial Thromboplast Time 2017-12-15 20:29:00* Test Item Value Reference Range Interpretation Comments Activated Partial Thromboplast Time (test code = 35955-6) 29.2 23.8-35.5 [facility] [address] [address] Patient Name: JOSEPH LONGO MR #: [id number] : 1950 Age/Sex: 67/M Req #: [id number] Adm Physician: Ordered by: TRAE LÓPEZ MD Report #: [id number] Location: ER Room/Bed: Procedure: [id number] CT/CT CHEST W Exam Ervin e: 02/13/18 [...] TO: TRAE LÓPEZ MD CHEST SINGLE (PORTABLE) [place] [address] Patient Name: JOSEPH LONGO MR #: [id number] : 1950 Age/Sex: 67/M Req #: [id number] Adm Physician: Ordered by: TRAE LÓPEZ MD Report #: [id number] Location: [facility] medina/Bed: Procedure: [id number] DX/CHEST SINGLE (PORTAB LE) Exam Date: 02/13/18 [...] TRAE LÓPEZ MD CT CERVICAL SPINE WO [place] [address] Patient Name: JOSEPH LONGO MR #: [id number] : 1950 Age/Sex: 67/M Req #: [id number] Adm Physician: Ordered by: YUNG CHIRINOS MD Report #: [id number] Location: ER Room/Bed: Procedure: [id number] CT/CT CERVICAL SPINE WO Exam Date: 12/15/17 Exam Time: 2320 REPORT STATUS: S igned EXAMINATION: Head and [...] be assessed with CT. Signed by: Samir Ferreira M.D. on 12/16/2017 12:01 AM Dictated By: RONNIE FERREIRA MD E lectronically Signed By: RONNIE FERREIRA MD on 12/16/172237 Transcribed By: GILDA Preston on 12/16/172237 COPY TO: YUNG CHIRINOS MD CT BRAIN WO [place] [address] Patient Name: JOSEPH LONGO MR #: [id number] : 1950 Age/Sex: 67/M Req #: [id number] Adm Physician: Ordered by: YUNG CHIRINOS MD Report #: [id number] Location: ER Room/Bed : Procedure: [id number] CT/CT BRAIN WO Exam Date: Exam Time: 0 REPORT STATUS: Signed EXAMINATION: [...] TO: YUNG CHIRINOS MD CT CHEST W [place] [address] Patient Name: JOSEPH LONGO MR #: [id number] : 1950 Age/Sex: 67/M Req #: [id number] Adm Physician: Ordered by: YUNG CHIRINOS MD Report #: [id number] Location: ER Room/Bed: Procedure: [id number] CT/CT CHEST W Exam Date: 11/23 02/06 [...] TO: YUNG CHIRINOS MD CHEST 2 VIEWS [place] [address] Patient Name: JOSEPH LONGO #: [id number] : 1950 Age/Sex: 67/M Req #: [id number] [facility] Physician: Ordered by: YUNG CHIRINOS MD Report #: [id number] Location: ER Room/Bed : Procedure: [id number] DX/CHEST 2 VIEWS Exam Date: 12/15/17 Exam [...]
--- NOTE | 2020-03-22 06:30 | NUR ---
dr grace informed of negative covid test per crime lab analyst.
[2020-03-22 11:07] LABS: CREATINE KINASE MB 2.1 ng/mL (0-5.0)
[2020-03-22] MEDS ORDERED: HYDRALAZINE HCL 20 MG/ML VIAL IV PRN (12:15)
[2020-03-22] MEDS ORDERED: RANOLAZINE 500 MG TABSR PO SCH (17:00)
[2020-03-22] MEDS: RANOLAZINE 500 MG TABSR PO SCH ×2 (17:30→17:47)
--- NOTE | 2020-03-22 17:39 | Consultation ---
DATE OF CONSULTATION: 03/22/2020 Pulmonary Medicine Consult REASON FOR REFERRAL: Chest mass. HISTORY OF PRESENT ILLNESS: Mr. Flood is a pleasant 69-year-old gentleman with chest mass. The patient presented to [facility] with shortness of breath. The patient with onset x1 day. Moderate severity. He has had anginal pains in the past. These were concerning for angina. When he came to the emergency room, he had a CT of chest. CT demonstrates elevated hemidiaphragm mainly on the left side and some right subpleural scarring/atelectasis, mild. The patient with 6 cm chest mass, mostly superior to the preaortic area. The patient with lymph nodes up to 1.7 cm in size. The patient has T5 vertebral lesion that is concerning for metastasis. At this point, the patient is admitted. PAST MEDICAL HISTORY: Hypertension, anxiety, hyperlipidemia, asbestosis fund patient. MEDICATIONS: Medication list reviewed per the chart record. Includes Plavix and aspirin and also on antianginal medicines for his heart. ALLERGIES: TYLENOL, HYDROCODONE, AND DIPHENHYDRAMINE. SOCIAL HISTORY: He smokes marijuana intermittently, but no heavy drugs. No alcohol significant. He smokes cigarettes three quarters pack per day x60 years, but he quit 6 years ago. He currently vapes nicotinic flavored cartridges for 3 years. 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 FAMILY HISTORY: Noncontributory to this. REVIEW OF SYSTEMS: GENERAL: No weight changes. OPHTHALMOLOGIC: No double floaters. ENT: No thyroid disease. PULMONARY: No asthma. CARDIAC: No recent CA. GI: No constipation. : No blood in urine. PSYCHIATRIC: No depression. NEUROLOGIC: No seizures. DERMATOLOGIC: No rash. PHYSICAL EXAMINATION: VITAL SIGNS: Afebrile, vital signs noted and reviewed per the chart record. GENERAL: In no acute distress, in bed, calm. HEENT: Normocephalic and atraumatic. NECK: Supple. Throat midline. LUNGS: Bilateral air entry, mostly clear. CARDIOVASCULAR: S1 and S2. No murmurs, rubs, or gallops. ABDOMEN: Soft and nontender. EXTREMITIES: No clubbing. No cyanosis. There is no edema. INTEGUMENT: No rash. No purpura. LABORATORY DATA: 3.4 potassium, 17 BUN, 1.0 creatinine. 16.2 white count, 34 hematocrit, 424 platelets. IMPRESSION AND PLAN: 1. New onset intrathoracic mass, probably mediastinal 6 cm lesion, suspicious for malignancy. 2. Multiple intrathoracic lymphadenopathy up to 1.7 cm. 3. T5 spinal lesion, suggestive metastasis. 4. Former cigarette smoker, long time. 5. 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 6. Intermittent marijuana use. 7. Hypertension. 8. Hyperlipidemia. 9. Anxiety history. 10. History of coronary artery disease. 11. Status post PTCA one month previous. Cardiology consulted given recent stenting one month previous. They need to define what kind of stents have placed and if the patient can come off anticoagulation. Mediastinoscopy is recommended for tissue diagnosis if an early biopsy strategy is taken based on Cardiology's recommendations. Else, the patient can be considered for outpatient PET scan with spinal biopsy of lesion if the spinal lesion light up positive. Smoking cessation of all materials can be reasonable. Follow up with Cardiology given the importance of their opinion with recent stenting. Thank you very much, Dr. Michelle, for this consult. Please call for questions. MD ARUN Jeronimo/SADIQ /[id number]
--- NOTE | 2020-03-22 18:09 | Consultation ---
DATE OF CONSULTATION: 03/22/2020 Cardiology Consultation REQUESTING PHYSICIAN: Geovany Michelle MD REASON FOR CONSULTATION: Chest pain. HISTORY OF PRESENT ILLNESS: This is a 69-year-old man with history of coronary artery disease, hypertension, hyperlipidemia who presents with complaints of chest pain. The patient reports that he has been feeling lightheaded and weak for the last couple of weeks. He was working on the griselda of a shed and developed a left shoulder pain which he attributed to a pulled muscle. He saw his primary care physician and was given muscle relaxants. Labs were drawn and he was found to have a leukocytosis for which he was prescribed antibiotics. Yesterday evening, the pain worsened and upon walking to the bedroom, he noticed he had pain radiating to the back as well as chest. EMS was therefore called and he was brought to the ER for further evaluation. Of note, the patient reports he has been out of Ranexa for the last 2 days. REVIEW OF SYSTEMS: Negative except as per HPI. PAST MEDICAL HISTORY: 1. Coronary artery disease. 2. Hypertension. 3. Hyperlipidemia. 4. Asbestosis. PAST SURGICAL HISTORY: 1. Hernia surgery. 2. Back surgery. ALLERGIES: PLEASE SEE EMR. MEDICATIONS: Please see medication list. SOCIAL HISTORY: Currently vapes, prior cigarette smoker. FAMILY HISTORY: Noncontributory to current illness. PHYSICAL EXAMINATION: VITAL SIGNS: Temperature 98 degrees, pulse 62, respiratory rate 17, blood pressure 126/69, oxygen saturation 99%. GENERAL: Elderly man, in no acute distress. Awake and alert. HEENT: Normocephalic, atraumatic. Pupils equal. No scleral icterus. NECK: Supple. No thyromegaly or cervical lymphadenopathy. No carotid bruits. LUNGS: Clear to auscultation bilaterally. No wheezes or crackles. CARDIOVASCULAR: Normal rate. Regular rhythm. No murmur. Normal S1 and S2. ABDOMEN: Soft and nontender. EXTREMITIES: No edema. NEUROLOGIC: Nonfocal exam. LABORATORY DATA: WBC 16.74, hemoglobin 12.7, hematocrit 34.3, platelets 424. Sodium 138, potassium 3.4, chloride 106, CO2 19, BUN 17, creatinine 1, troponin 0.012. CT chest no PE, 6 cm locally invasive left upper lobe apical medial mass invades the mediastinum encasing the left subclavian carotid artery and partially encasing the distal aortic arch and brachiocephalic artery. Malignant mediastinal adenopathy as above. Expansile destructive lytic metastases in T5 vertebral body invades the left T5 neural foramina and left anterolateral epidural space, triple vessel coronary artery calcific atherosclerosis, pulmonary emphysema, mild main pulmonary artery dilation suggestive of pulmonary hypertension. EKG; normal sinus rhythm. Nonspecific ST and T-wave abnormality. IMPRESSION: 1. Chest pain. 2. Coronary artery disease with recent cardiac catheterization January of 2020 with 100% in-stent restenoses of the RCA and mild coronary artery disease elsewhere with grade IV collaterals from the left to right. 3. Hypertension. 4. Hyperlipidemia. 5. Metastatic lung cancer. RECOMMENDATIONS: Trend troponin. No evidence of myocardial infarction thus far. If the patient ruled out for UT, no further cardiac evaluation will be indicated at this time. Resume outpatient cardiac medications including Ranexa. The patient's blood pressure for the most part acceptable for his age. Further evaluation of lung cancer per primary. Thank you for this consult. We will continue to follow. Ainsley Matta MD ABS/MODL /[id number]
[2020-03-22 19:11] LABS: CREATINE KINASE MB 2.6 ng/mL (0-5.0)
[2020-03-22 20:00] VITALS: BP 129/70
--- NOTE | 2020-03-22 20:40 | NUR ---
PATIENT RECEIVED FROM ER. PATIENT IS RESTING IN BED, AAOX3. REP EVEN AND UNLABORED. PATIENT DINES OF ANY PAIN OR DISCOMFORT AT THIS TIME. ORIENTED TO ROOM. TELE IN PLACE NOTED. EDUCATED PT ABOUT FALL PRECAUTIONS. PT VERBALIZED UNDERSTANDING. CALL LIGHT WITH IN EASY REACH. INSTRUCTED PT TO USE CALL LIGHT FOR ALL THE NEEDS. BED IS LOW AND LOCKED. SIDE RAILS X2. PT DENIES NEEDS AT THIS TIME.
[2020-03-22 21:00] VITALS: BP 138/69
[2020-03-22] MEDS: ATORVASTATIN 40 MG TAB PO SCH (21:00)
[2020-03-22 22:00] VITALS: BP 138/69
[2020-03-23] VITALS (9 sets, daily range): BP systolic 116–146; BP diastolic 62–84
[2020-03-23] MEDS ORDERED: TIZANIDINE HCL4 M1 PO (04:03)
[2020-03-23] MEDS ORDERED: LORATADINE10 MG PO (04:07)
--- NOTE | 2020-03-23 04:22 | NUR ---
Pulmonary Medicine DATE 03/23/2020 SUBJECTIVE: RA fio2 d/w nursing. seen by oncology during the day shift. input by surgeon still being coordinated he is sleepy, as he hasnt slept well recently REVIEW OF SYSTEMS: no bleeding, no BRBPR PHYSICAL EXAMINATION: VITAL SIGNS: vital signs noted and reviewed per the chart record. GENERAL: no acute distress, calm. HEENT: Normocephalic, atraumatic. NECK: Supple. Throat midline. LUNGS: Bilateral air entry, mostly clear. CARDIOVASCULAR: S1 and S2. No murmurs, rubs, or gallops. ABDOMEN: Soft and nontender. EXTREMITIES: No clubbing. No cyanosis. no edema. INTEGUMENT: No rash. No purpura. LABORATORY DATA: no new updates IMPRESSION AND PLAN: 1. New onset intrathoracic mass, probably mediastinal 6 cm lesion, suspicious for malignancy. 2. Multiple intrathoracic lymphadenopathy up to 1.7 cm. 3. T5 spinal lesion, suggestive metastasis. 4. Former cigarette smoker, long time. 5. 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 6. Intermittent marijuana use. 7. Hypertension. 8. Hyperlipidemia. 9. Anxiety history. 10. History of coronary artery disease. 11. Status post PTCA one month previous reported. Cardiology consulted given recent stenting one month previous. They can optimize the patients situation for proposed surgical intervention --consideration should account for the aspirin and plavix needs, and operability Surgical consult for mediastinoscopy is recommended for tissue diagnosis if an early biopsy strategy is implemented If Cardiology recommends a delayed diagnostic strategy, consideration can also be for an outpatient PET/CT +/- T5 spinal lesion biopsy Smoking cessation of all materials can be reasonable. Thank you very much, Dr. Michelle, for this consult. Please call for questions.
[2020-03-23 05:44] LABS: BASOPHILS # (AUTO) 0.1 (0.0-0.1); BASOPHILS % 0.7 % (0.0-1.0); EOSINOPHILS # (AUTO) 0.2 (0.0-0.4); EOSINOPHILS % 2.2 % (0.0-6.0); HEMATOCRIT 31.6 % (38.2-49.6); HEMOGLOBIN 11.5 g/dL (14.0-18.0); LYMPHOCYTES # (AUTO) 3.9 (1.0-3.2); LYMPHOCYTES % 38.1 % (18.0-39.1); MEAN CORPUSCULAR HEMOGLOBIN 33.2 pg (28-32); MEAN CORPUSCULAR HGB CONC 36.4 g/dL (31-35); MEAN CORPUSCULAR VOLUME 91.3 fL (81-99); MONOCYTES % 9.8 % (4.4-11.3); NEUTROPHILS % 48.9 % (38.7-80.0); PLATELET COUNT 347 x10e3/uL (140-360); RED BLOOD COUNT 3.46 x10e6/uL (4.3-5.7); RED CELL DISTRIBUTION WIDTH 13.7 % (11.7-14.4)
--- NOTE | 2020-03-23 06:04 | NUR ---
PAGED DR BARAJAS FOR CONSULT. AWAITING FOR MD TO CALL BACK
[2020-03-23 06:19] LABS: ALANINE AMINOTRANSFERASE 15 IU/L (0-55); ALBUMIN 3.2 g/dL (3.5-5.0); ALBUMIN/GLOBULIN RATIO 1.1 (0.8-2.0); ALKALINE PHOSPHATASE 66 IU/L (40-150); ANION GAP 12.1 mmol/L (8-16); BLOOD UREA NITROGEN 11 mg/dL (7-26); BUN/CREATININE RATIO 15 (6-25); CALCIUM 8.6 mg/dL (8.4-10.2); CARBON DIOXIDE 22 mmol/L (22-29); CHLORIDE 107 mmol/L (98-107); CREATININE, SERUM 0.72 mg/dL (0.72-1.25); EST GLOMERULAR FILTRATION RATE > 60 ML/MIN (60-); GLUCOSE 90 mg/dL (74-118); POTASSIUM 4.1 mmol/L (3.5-5.1); SODIUM 137 mmol/L (136-145)
[2020-03-23 06:36] LABS: CREATINE KINASE MB 2.4 ng/mL (0-5.0)
[2020-03-23 06:54] LABS: CHOL/HDL RATIO 2.8 (3.9-4.7)
[2020-03-23 07:14] LABS: THYROID STIMULATING HORMONE 1.127 uIU/mL (0.350-4.940)
[2020-03-23] MEDS: MORPHINE SULFATE 2 MG/ML SYR 1ML IV PRN ×3 (08:14→19:45)
[2020-03-23] MEDS ORDERED: CLOPIDOGREL BISULFATE 75 MG TAB PO SCH (09:00)
[2020-03-23] MEDS ORDERED: TERAZOSIN HCL 5 MG CAP PO SCH ×2 (09:00→21:00)
[2020-03-23] MEDS ORDERED: FINASTERIDE 5 MG TAB PO SCH ×2 (09:00→21:00)
[2020-03-23] MEDS ORDERED: ASPIRIN 81 MG CHEW TAB PO SCH (09:00)
[2020-03-23] MEDS: CITALOPRAM HYDROBROMIDE 20 MG TAB PO SCH (09:25)
--- NOTE | 2020-03-23 09:25 | NUR ---
Pt unavailable at this time. Pt's nurse performing procedure bedside. I will follow up as able. SUKHDEV GARCÍA Artifacts Conservator [facility] Care Department O: [phone]
[2020-03-23] MEDS: RANOLAZINE 500 MG TABSR PO SCH ×2 (09:26→17:53)
[2020-03-23] MEDS: METOPROLOL SUCCINATE 25 MG TAB XL PO SCH (09:27)
[2020-03-23] MEDS ORDERED: ONDANSETRON HCL 4 MG ORAL DISINTEGRATING TAB PO PRN (13:45)
--- NOTE | 2020-03-23 16:15 | Progress Note ---
DATE: 03/23/2020 Cardiology Progress Note SUBJECTIVE: The patient denies chest pain or shortness of breath. OBJECTIVE: VITAL SIGNS: Temperature 98 degrees, pulse 61, respiratory rate 20, blood pressure 134/63, and oxygen saturation 97% on room air. GENERAL: Awake, alert, no acute distress. LUNGS: Clear to auscultation bilaterally. No wheezes or crackles. CARDIOVASCULAR: Normal rate. Regular rhythm. No murmur. Normal S1, S2. ABDOMEN: Soft, nontender. EXTREMITIES: No edema. CARDIAC MEDICATIONS: Metoprolol succinate 25 mg p.o. daily, ranolazine 1000 mg p.o. b.i.d., Plavix 75 mg p.o. daily, aspirin 81 mg p.o. daily, and atorvastatin 40 mg p.o. at bedtime. LABORATORY DATA: WBC 10.24, hemoglobin 11.5, hematocrit 31.6, and platelets 347. Sodium 137, potassium 4.1, chloride 107, CO2 of 22, BUN 11, and creatinine 0.72. Troponin 0.003. TELEMETRY: Personally reviewed and interpreted revealing normal sinus rhythm. IMPRESSION: 1. Chest pain. 2. Coronary artery disease with recent cardiac catheterization in January 2020 with 100% in-stent restenosis of the RCA and mild coronary artery disease elsewhere with grade 4 collaterals from the left to the right. 3. Hypertension. 4. Hyperlipidemia. 5. Metastatic lung cancer, suspected. RECOMMENDATIONS: The patient has ruled out for myocardial infarction with serial troponin. As the patient had recent cardiac catheterization, no further cardiac evaluation is indicated at this time. Continue current cardiac medications. The patient's last stent was actually placed in 2017, aspirin and Plavix can be held for biopsy as necessary. Continue current cardiac medications otherwise. Blood pressure is acceptable for his age. Oncology and Surgical input are pending. Thank you for this consult. We will continue to follow. Ainsley Matta MD ABS/MODL /[id number]
--- NOTE | 2020-03-23 18:25 | NUR ---
patient resting in bed, Alert with no distress, Dr Arcos had rounds
[2020-03-23] MEDS: ATORVASTATIN 40 MG TAB PO SCH (21:30)
[2020-03-24] MEDS: MORPHINE SULFATE 2 MG/ML SYR 1ML IV PRN ×3 (00:29→10:10)
[2020-03-24 04:54] VITALS: BP 98/66
[2020-03-24 06:47] LABS: BASOPHILS # (AUTO) 0.1 (0.0-0.1); BASOPHILS % 0.4 % (0.0-1.0); EOSINOPHILS # (AUTO) 0.3 (0.0-0.4); EOSINOPHILS % 2.2 % (0.0-6.0); HEMATOCRIT 35.4 % (38.2-49.6); HEMOGLOBIN 12.7 g/dL (14.0-18.0); LYMPHOCYTES # (AUTO) 3.9 (1.0-3.2); LYMPHOCYTES % 33.9 % (18.0-39.1); MEAN CORPUSCULAR HEMOGLOBIN 33.9 pg (28-32); MEAN CORPUSCULAR HGB CONC 35.9 g/dL (31-35); MEAN CORPUSCULAR VOLUME 94.4 fL (81-99); MONOCYTES # (AUTO) 1.1 (0.2-0.8); NEUTROPHILS % 53.2 % (38.7-80.0); PLATELET COUNT 333 x10e3/uL (140-360); RED BLOOD COUNT 3.75 x10e6/uL (4.3-5.7); RED CELL DISTRIBUTION WIDTH 13.9 % (11.7-14.4)
--- NOTE | 2020-03-24 07:00 | NUR ---
BEDSIDE SHIFT REPORT ROUNDS FROM ADELIA RANDOLPH. PT DENIES NEEDS AT THIS TIME.
[2020-03-24 07:03] LABS: INR 0.88; PROTHROMBIN TIME 12.5 seconds (11.9-14.5)
[2020-03-24 07:07] LABS: ALANINE AMINOTRANSFERASE 13 IU/L (0-55); ALBUMIN 3.4 g/dL (3.5-5.0); ALBUMIN/GLOBULIN RATIO 1.1 (0.8-2.0); ALKALINE PHOSPHATASE 74 IU/L (40-150); ANION GAP 13.6 mmol/L (8-16); BLOOD UREA NITROGEN 13 mg/dL (7-26); BUN/CREATININE RATIO 15 (6-25); CALCIUM 8.9 mg/dL (8.4-10.2); CARBON DIOXIDE 26 mmol/L (22-29); CHLORIDE 106 mmol/L (98-107); CREATININE, SERUM 0.86 mg/dL (0.72-1.25); EST GLOMERULAR FILTRATION RATE > 60 ML/MIN (60-); GLUCOSE 93 mg/dL (74-118); MAGNESIUM 1.9 MG/DL (1.3-2.1); POTASSIUM 4.6 mmol/L (3.5-5.1); SODIUM 141 mmol/L (136-145)
[2020-03-24 08:02] VITALS: BP 129/71
[2020-03-24 08:28] VITALS: BP 129/71
[2020-03-24] MEDS: RANOLAZINE 500 MG TABSR PO SCH (09:19)
[2020-03-24] MEDS: CITALOPRAM HYDROBROMIDE 20 MG TAB PO SCH (09:19)
[2020-03-24] MEDS: METOPROLOL SUCCINATE 25 MG TAB XL PO SCH (09:19)
[2020-03-24] MEDS ORDERED: RANEXA500 MG PO (10:01)
[2020-03-24] MEDS ORDERED: ULTRAM 50MG50 MG PO (10:07)
--- NOTE | 2020-03-24 10:19 | NUR ---
IMM letter delivered and explained to pt. He verbalized understanding. Signed copy placed in chart. Copy to pt.
[2020-03-24 11:18] VITALS: BP 125/85
--- NOTE | 2020-03-24 11:53 | NUR ---
Pulmonary Medicine DATE 03/24/2020 SUBJECTIVE: RA FIO2 d/w cardiology. ok to hold Plavix/ASA There was no recent coronary stenting, as heart catheterization was only diagnostic from last month walking REVIEW OF SYSTEMS: no bleeding, no BRBPR PHYSICAL EXAMINATION: VITAL SIGNS: vital signs noted and reviewed per the chart record. GENERAL: no acute distress, calm. HEENT: Normocephalic, atraumatic. NECK: Supple. Throat midline. LUNGS: Bilateral air entry, mostly clear. CARDIOVASCULAR: S1 and S2. No murmurs, rubs, or gallops. ABDOMEN: Soft and nontender. EXTREMITIES: No clubbing. No cyanosis. no edema. INTEGUMENT: No rash. No purpura. LABORATORY DATA: cr 0.86, k 4.6, wbc 11, plt 333 IMPRESSION AND PLAN: 1. ~Mediastinal 6 cm lesion, suspicious for malignancy. Much less likely MTB, histoplasmosis, other. 2. Multiple intrathoracic lymphadenopathy up to 1.7 cm. 3. T5 spinal lesion, suggested metastasis. 4. Former cigarette smoker, long time. 5. Asbestos fund status 6. Intermittent marijuana use. 7. Hypertension. 8. Hyperlipidemia. 9. Anxiety history. 10. History of coronary artery disease. 11. CAD, hx stents (none recently) Cardiology recommendation appreciated --hold plavix, hold aspirin Interventional Radiology Dr Guevara agrees to perform mediastinal mass biopsy. They will arrange with [place] [phone] and patient. Smoking cessation of all materials can be reasonable. Outpatient PET/CT scan Thank you very much, Dr. Michelle, for this consult. Please call for questions.
--- NOTE | 2020-03-25 06:37 | Discharge Summary ---
ADMISSION DIAGNOSES: 1. Chest pain. 2. Left upper lobe lung mass with T5 metastasis. 3. Hypertension. 4. Hyperlipidemia. 5. Benign prostatic hyperplasia. 6. Depression. 7. Coronary artery disease with percutaneous coronary intervention. DISCHARGE DIAGNOSES: 1. Chest pain. 2. Left upper lobe lung mass with T5 metastasis. 3. Hypertension. 4. Hyperlipidemia. 5. Benign prostatic hyperplasia. 6. Depression. 7. Coronary artery disease with percutaneous coronary intervention. HISTORY: Hypertension, hyperlipidemia, BPH, and depression. SURGICAL HISTORY: TMA, back surgery, abdominal hernia repair, and PCI. FAMILY HISTORY: Noncontributory. SOCIAL HISTORY: The patient admits to smoking. Vape for five years with occasional alcohol use. HOSPITAL COURSE: A 69-year-old male admitted with complaints of left-sided chest pain that radiated to his back. The pain was constant, sharp and lasted about 5 minutes, resolved after taking aspirin. He had associated shortness of breath, lightheadedness, nausea, and diaphoresis on admission CT of the chest showed a 6 cm locally invasive left upper lobe mass that invades the mediastinum and encases the left subclavian and carotid artery and partially encases the distal aortic arch and brachiocephalic artery, malignant mediastinal adenopathy as above, mets in T5 vertebral body invades the left T5 neural foramina and left anterior lateral epidural space. CV Surgery, Cardio and Pulmonology were consulted. Troponins were negative. Echo showed an EF of 60%. TSH was within normal limits. CEA showed 1.3. Per CV Surgery and IR recommendation, a biopsy was ordered, but since the patient was on aspirin and Plavix due to the chest pain and CAD with PCI, he was unable to have a biopsy in the hospital. He will discharge home with tramadol for pain. He will not be on aspirin and Plavix. At discharge, he will hold it until he is to have the biopsy with Interventional Radiology. He will follow up with Dr. Boss and primary care as discussed. The patient and understand discharge instructions and agreed to plan, vital signs stable, the patient afebrile. Dictated by May Rothman NP MD DURAN [facility]/MODL /[id number]
== END 2020-03-24 12:30 | disposition home or self-care (01) | DRG 181 ==
LOC: ER 00:33 → ERHOLD 04:53 → MED/SURG2 20:21
PROVIDERS: ADMIT Internal Medicine; ATTEND Internal Medicine
DX: C34.12 Malignant neoplasm of upper lobe, left bronchus or lung (principal); C78.1 Secondary malignant neoplasm of mediastinum; C79.51 Secondary malignant neoplasm of bone; J61 Pneumoconiosis due to asbestos and other mineral fibers; I10 Essential (primary) hypertension; E78.5 Hyperlipidemia, unspecified; R59.1 Generalized enlarged lymph nodes; F41.9 Anxiety disorder, unspecified; I25.10 Atherosclerotic heart disease of native coronary artery without angina pectoris; Z95.5 Presence of coronary angioplasty implant and graft; N40.0 Benign prostatic hyperplasia without lower urinary tract symptoms; F32.9 Major depressive disorder, single episode, unspecified; Z87.891 Personal history of nicotine dependence; F12.90 Cannabis use, unspecified, uncomplicated; R07.9 Chest pain, unspecified
CPT/HCPCS: 36415; 71260; 74470; 80053; 80061; 82378; 82550; 82553; 82948; 83036; 83605; 83690; 83735; 83880; 84443; 84484; 85025; 85610; 87040; 87635; 93005; 93306; 99284; J1885; J2270; J2405; J2543; J7030; Q9967

== ENCOUNTER → 2020-04-01 | Outpatient (CLI) | payer MEDICARE, OTHER ==
[~2020-04-01] MED LIST changes: +FENTANYL CITRATE/PF 100MCG/2 ML INJ ONE; +MIDAZOLAM HCL 2 MG/2 ML VIAL ONE; +TIZANIDINE HCL4 M1 PO; +ULTRAM 50MG50 MG PO
--- NOTE | 2020-04-01 12:47 | Diagnostic Imaging Report ---
EXAMINATION: CHEST SINGLE (PORTABLE) INDICATION: Postprocedural COMPARISON: CT-guided biopsy of earlier the same day FINDINGS: LINES/TUBES:None LUNGS:The right lung is well-inflated. Left lung volumes are relatively low. No focal consolidation or pulmonary edema. PLEURA:No pleural effusion or pneumothorax. MEDIASTINUM:Left upper mediastinal prominence corresponds with known upper mediastinal soft tissue mass. The heart is not enlarged. BONES/SOFT TISSUES:No acute osseous injury. ABDOMEN:No free air under the diaphragm. IMPRESSION: No pneumothorax status post left upper mediastinal biopsy. Signed by: Nazario Guevara MD on 04/01/2020 12:44 PM
--- NOTE | 2020-04-01 13:40 | Diagnostic Imaging Report ---
PROCEDURE: CT-guided biopsy Procedural Personnel Attending physician(s): Nazario Guevara MD Fellow physician(s): None Resident physician(s): None Advanced practice provider(s): None Pre-procedure diagnosis: Left upper lobe/ upper mediastinal mass Post-procedure diagnosis: Same Indication: Histopathologic diagnosis Previous biopsy of same target (QCDR): No Additional clinical history: None Complications: No immediate complications. IMPRESSION: CT-guided biopsy of left upper lobe/ upper mediastinal mass. Plan: Specimen(s) sent for evaluation. PROCEDURE SUMMARY: - Percutaneous CT-guided core needle and fine needle aspiration biopsy biopsy - Additional procedure(s): None PROCEDURE DETAILS: Pre-procedure Reference imaging for biopsy target: Chest CT 03/22/2020 Consent: Informed consent for the procedure including risks, benefits and alternatives was obtained and time-out was performed prior to the procedure. Preparation: The site was prepared and draped using maximal sterile barrier technique including cutaneous antisepsis. Anesthesia/sedation Level of anesthesia/sedation: Moderate sedation (conscious sedation) 2mg Versed 100mcg Fentanyl Anesthesia/sedation administered by: Independent trained observer under attending supervision with continuous monitoring of the patient?s level of consciousness and physiologic status Total intra-service sedation time (minutes): 60 Imaging prior to biopsy The patient was positioned supine. Initial imaging was performed using noncontrast CT. Biopsy target: - Maximal diameter (cm): 6 - Location: Left upper mediastinum, left upper lobe Other findings: None Biopsy Local anesthesia was administered. Under CT guidance, the biopsy needle was advanced to the target and biopsy was performed. Coaxial needle: 19 gauge Core needle biopsy device: [employer]cutron[employer] Core needle size: 20 gauge Number of core specimens: 3 Fine needle aspiration device: Chiba Fine needle size: 22g Number of FNA specimens: 3 On-site biopsy touch preparation: Yes Additional sampling recommendations: None Preliminary assessment of sample adequacy: Adequate Needle removal The biopsy needle was removed and a sterile dressing was applied. Tract embolization: Blood patch Imaging following biopsy Immediate post-biopsy imaging was performed using noncontrast CT. Post-biopsy imaging findings: No immediate pneumothorax Contrast Contrast agent: None Contrast volume (mL): [address] dose length product (mGy-cm): 3246 Additional Details Additional description of procedure: None Equipment details: None Specimens removed: Biopsy samples as detailed above Estimated blood loss (mL): Less than 10 Standardized report: [id number] Attestation Signer name: Nazario Guevara MD I attest that I was present for the entire procedure. I reviewed the stored images and agree with the report as written. Signed by: Nazario Guevara MD on 04/01/2020 1:37 PM
== END ==
LOC: CT 08:02
PROVIDERS: ATTEND Internal Medicine Critical Care Medicine
DX: R22.2 Localized swelling, mass and lump, trunk (principal); Z11.59 Encounter for screening for other viral diseases
CPT/HCPCS: 10009; 32405; 71045; 87635; 88172; 88173; 88305; 88342; 99152; 99153; J2250; J3010

== ENCOUNTER 2020-05-28 10:39 | Inpatient (IN) | payer MEDICARE, OTHER ==
[~2020-05-28] VITALS: Ht 172.7 cm; Wt 82.6 kg
[~2020-05-28 10:39] MED LIST changes: -FENTANYL CITRATE/PF 100MCG/2 ML INJ ONE; -METOPROLOL SUCC25 MG; +METOPROLOL SUCC25 MG PO; -MIDAZOLAM HCL 2 MG/2 ML VIAL ONE
[2020-05-28] MEDS ORDERED: SODIUM CHLORIDE 0.9% 1000ML 1,000 ML ONE ×2 (11:29→12:15)
[2020-05-28] MEDS ORDERED: CEFTRIAXONE SOD 1 GM/NS 50 ML 50 ML IV ONE (11:30)
[2020-05-28] MEDS ORDERED: SODIUM CHLORIDE 0.9% 1000ML 1,000 ML IV STA (11:30)
[2020-05-28 11:46] LABS: BASOPHILS # (AUTO) 0.2 (0.0-0.1); BASOPHILS % 0.6 % (0.0-1.0); EOSINOPHILS % 0.2 % (0.0-6.0); HEMATOCRIT 38.8 % (38.2-49.6); HEMOGLOBIN 13.4 g/dL (14.0-18.0); LYMPHOCYTES # (AUTO) 2.3 (1.0-3.2); LYMPHOCYTES % 8.9 % (18.0-39.1); MEAN CORPUSCULAR HEMOGLOBIN 32.3 pg (28-32); MEAN CORPUSCULAR HGB CONC 34.5 g/dL (31-35); MEAN CORPUSCULAR VOLUME 93.5 fL (81-99); MONOCYTES # (AUTO) 0.3 (0.2-0.8); MONOCYTES % 1.1 % (4.4-11.3); NEUTROPHILS % 88.2 % (38.7-80.0); PLATELET COUNT 356 x10e3/uL (140-360); RED BLOOD COUNT 4.15 x10e6/uL (4.3-5.7); RED CELL DISTRIBUTION WIDTH 14.3 % (11.7-14.4)
--- NOTE | 2020-05-28 11:46 | Diagnostic Imaging Report ---
EXAMINATION: CHEST SINGLE (PORTABLE) INDICATION: Chest pain COMPARISON: Chest radiograph 04/01/2020 FINDINGS: LINES/TUBES:None LUNGS:The right lung is well-inflated. Left lung volume remains low. Unchanged left hemidiaphragmatic elevation. No focal consolidation. PLEURA:No pleural effusion or pneumothorax. MEDIASTINUM:The cardiomediastinal silhouette appears unchanged in size and shape. BONES/SOFT TISSUES:No acute osseous injury. ABDOMEN:No free air under the diaphragm. IMPRESSION: Unchanged left hemidiaphragmatic elevation. No focal pneumonia or pulmonary edema. Upper mediastinal mass better visualized on prior CT. Signed by: Nazario Guevara MD on 05/28/2020 11:42 AM
--- OUTSIDE RECORDS SUMMARY | 2020-05-28 11:59 | XMS REPORT | Continuity of Care Document ---
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 Name Role Phone [employer] Unavailable Un available Problems Problem Status Onset Date Classification Date Reported Comments Source Carpal tunnel syndrome, left upper limb 07/31/2018 02/11/2019 [facility] HEART CATH Active 03/07/2018 [facility] CAD(CORONARY ARTERY DISEASE) A ctive 03/07/2018 [facility] 490 - BRONCHITIS NOS Active 08/29/2012 [facility] [place] Carpal tunnel syndrome, right upper limb 02/11/2019 [facility] Other cervical disc degeneration, unspec ified cervical region 02/11/2019 [facility] Osteophyte, vertebrae 02/11/2019 [facility] Other specific arthropathies, 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, vertebrae 02/11/2019 [facility] 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 [facility] Medications Medication Details Route Status Patient Instructions Ordering Provider Order Date Source metoprolol 25 mg oral tablet, extended release 25 mg = 1 tab, PO, Daily, # 30 tab, 0 Refill(s), Pharmacy: [place] [id number] Active 03/13/2018 [facility] clopidogrel 75 mg oral tablet 75 mg = 1 tab, PO, Daily, # 30 tab, 0 Refill(s), Pharmacy: [place] [id number] Active 03/13/2018 [facility] atorvastatin 40 mg oral tablet 40 mg = 1 tab, PO, Daily, # 30 tab, 0 Refill(s), Pharmacy: [place] [id number] Active 03/13/2018 [facility] Fentanyl Notes: (Same as: Subl imaze) Preservative free. No Longer Active 03/13/2018 [facility] Hydralazine Notes: (Same as: A presoline) Push over 5 minutes No Longer Active 03/12/2018 [facility] Morphine Notes: (Same as:MORPh ine Sulfate) No Longer Active 03/12/2018 [facility] Nitroglycerin Notes: (Same as: Nitroquick, Nitrostat) "Do Not Crush" Sublingual tablet No Longer Active 03/12/2018 [facility] Sodium Chloride 0.9% IV 750 mL 750 mL, Rate: 75 ml/hr, Infuse over: 10 hr, Route: IV, Dosing Weight 101.3 kg, Total Volume: 750, Start date: 03/12/18 12:36:00 CDT, Duration: 10 hr, Stop date: 03/12/18 22:35:00 CDT, 2.24, m2 Inactive 03/12/2018 [facility] Mucinex 1200, PO, Daily, PRN A llergies, 0 Refill(s) No Longer Active 03/12/2018 [facility] Lisinopril Notes: (Same as: Pr inivil, Zestril) No Longer Active 03/12/2018 [facility] Citalopram 20 mg, 2 tab, Route : PO, Drug form: TAB, Daily, Dosing Weight 98.8, kg, Start date: 03/12/18 9:00:00 CDT, Duration: 30 day, Stop date: 04/10/18 9:00:00 CDT No Longer Active 03/12/2018 [facility] atorvastatin Notes: (Same as: Lipitor) No Longer Active 03/12/2018 [facility] Aspirin 81 MG Chewable Tablet 81 mg, 1 tab, Route: PO, Drug form: CHEWTAB, Daily, Dosing Weight 98.8, kg, Start date: 03/12/18 9:00:00 CDT, Duration: 30 day, Stop date: 04/10/18 9:00:00 CDT No Longer Active 03/12/2018 [facility] clopidogrel Notes: (Same As: P lavix) No Longer Active 03/12/2018 [facility] Aspirin 81 MG Enteric Coated Tablet Notes: Do not crush or chew. (Same As: Ecotrin) No Longer Active 03/12/2018 [facility] metoprolol extended release No hiral: (Same as: Toprol XL) Do Not Crush No Longer Active 03/12/2018 [facility] Terazosin Notes: (Same As: Hyt rin) No Longer Active 03/12/2018 [facility] Famotidine Notes: (Same as: Pe pcid) No Longer Active 03/12/2018 [facility] heparin additive 25,000 unit [12 unit/kg /hr] + Premix Diluent Dextrose 5% 500 mL 500 mL, Rate: 19.01 ml/hr, Infuse over: 26.3 hr, Route: IV, Dosing Weight 79.2 kg, Total Volume: 500 mL, Start date: 03/11/18 17:52:00 CDT, Duration: 30 day, Stop date: 04/10/18 17:51:00 CDT, 1.98, m2 No Longer Active 03/11/2018 [facility] Heparin 30 unit/kg Bolus (Heparin Dosing Weight) Route: IVP, PRN, 2,400 unit, 2.4 mL, Drug form: INJ, PRN, Heparin Protocol, Start date: 03/11/18 17:52:00 CDT Stop date: 04/10/18 17:51:00 CDT, 30 day No Longer Active 03/11/2018 [facility] Heparin 60 unit/kg Bolus (Heparin Dosing Weight) Route: IVP, PRN, 4,800 unit, 4.8 mL, Drug form: INJ, PRN, Heparin Protocol, Start date: 03/11/18 17:52:00 CDT Stop date: 04/10/18 17:51:00 CDT, 30 day No Longer Active 03/11/2018 [facility] Alprazolam 0.5 MG Oral Tablet 0.5 mg, 1 tab, Route: PO, ONCE, Dosing Weight 98.8, kg, Start date: 03/11/18 17:35:00 CDT, Stop date: 03/11/18 17:35:00 CDT Inactive 03/11/2018 [facility] Clotrimazole 10 MG/ML Topical Cream [Lotrimin] Notes: For external use only. (Same As: Lotrimin AF, Mycelex) No Longer Active 03/11/2018 [facility] Ondansetron Notes: (Same as: Z conchita) No Longer Active 03/11/2018 [facility] Morphine 4 mg, 2 mL, Route: IV P, Drug form: SOLN, Q2H, Dosing Weight 98.8, kg, PRN Pain Score 7-10, Start date: 03/11/18 16:20:00 CDT, Duration: 30 day, Stop date: 04/10/18 16:19:00 CDT No Longer Active 03/11/2018 [facility] Nitroglycerin Notes: (Same as: Nitroquick, Nitrostat) "Do Not Crush" Sublingual tablet No Longer Active 03/11/2018 [facility] Sodium Chloride 0.9% IV 750 mL 750 mL, Rate: 75 ml/hr, Infuse over: 10 hr, Route: IV, Dosing Weight 98.8 kg, Total Volume: 750, Start date: 03/11/18 16:20:00 CDT, Duration: 10 hr, Stop date: 03/12/18 2:19:00 CDT, 2.21, m2 No Longer Active 03/11/2018 [facility] prasugrel 60 mg, Route: PO, Dr ug form: TAB, ONCE, Dosing Weight 98.8, kg, Priority: NOW, Start date: 03/11/18 16:19:00 CDT, Stop date: 03/11/18 16:19:00 CDT Inactive 03/11/2018 [facility] atorvastatin PO, Daily, 0 Refi ll(s) No Longer Active 03/11/2018 [facility] lisinopril 20 mg oral tablet 2 0 mg = 1 tab, PO, Daily, 0 Refill(s) Active 03/11/2018 [facility] Clotrimazole 10 MG/ML Topical Cream [Lotrimin] 1 appl, TOP, BID, 0 Refill(s) Active 03/11/2018 [facility] Aspirin 81 MG Chewable Tablet 81 mg = 1 tab, PO, Daily, tab, 0 Refill(s) Active 03/11/2018 [facility] terazosin 10 mg oral capsule 1 0 mg = 1 cap, PO, Bedtime, 0 Refill(s) Active 03/11/2018 [facility] citalopram 40 mg oral tablet 2 0 mg = 0.5 tab, PO, Daily, 0 Refill(s) Active 03/11/2018 [facility] Alprazolam 0.5 MG Oral Tablet Notes: With food or milk (Same as: Xanax) Inactive 03/11/2018 [facility] Allergies, Adverse Reactions, Alerts Substance Category Reaction Severity Reaction type Status Date Reported Comments Source Vicodin Assertion Drug allergy Active [facility] Benadryl Assertion Vicodin Drug allergy Active [facility] Immunizations Immunization Date Given Site Status Last Updated Comments Source pneumococcal 13-valent vaccine 03/13/2018 Left Gluteus Medius completed [facility], [facility] [place] Results Order Name Results Value Reference Range Date Interpretation Comments Source ELECTROLYTES AGAP 9.7 10.0 - 20.0 03/13/2018 [facility] ELECTROLYTES eGFR 53 03/13/2018 Result Comment: [...] should be multiplied by the estimated BMI. [facility] ELECTROLYTES Sodium Lvl 138 135 - 145 03/13/2018 [facility] ELECTROLYTES CO2 24 24 - 32 03/13/2018 [facility] ELECTROLYTES Potassium Lvl 3.7 3.5 - 5.1 03/13/2018 [facility] ELECTROLYTES Chloride Lvl 108 95 - 109 03/13/2018 [facility] ELECTROLYTES Calcium Lvl 7.8 8.5 - 10.5 03/13/2018 [facility] ELECTROLYTES Glucose Lvl 118 70 - 99 03/13/2018 [facility] ELECTROLYTES BUN 16 7 - 22 03/13/2018 [facility] ELECTROLYTES Creatinine Lvl 1.0 7 0.50 - 1.40 03/13/2018 [facility] HEMATOLOGY Platelet 275 133 - 450 03/13/2018 [facility] HEMATOLOGY RDW 13.1 11.5 - 14.5 03/13/2018 [facility] HEMATOLOGY MPV 7.8 7.4 - 10.4 03/13/2018 [facility] HEMATOLOGY MCHC 36.0 32.0 - 36.0 03/13/2018 [facility] HEMATOLOGY MCV 95.3 80.0 - 98.0 03/13/2018 [facility] MCH 34.3 27.0 - 31.0 03/13/2018 [facility] HEMATOLOGY WBC 11.4 3.7 - 10.4 03/13/2018 [facility] Hgb 13.3 12.0 - 16.0 03/13/2018 [facility] HEMATOLOGY Hct 36.9 36.0 - 48.0 03/13/2018 [facility] HEMATOLOGY RBC 3.87 4.20 - 5.40 03/13/2018 [facility] HEMATOLOGY PTT 30.7 22.9 - 35.8 03/13/2018 [facility] HEMATOLOGY PT 12.8 12.0 - 14.7 03/13/2018 [facility] HEMATOLOGY INR 0.96 0.85 - 1.17 03/13/2018 [facility] HEMATOLOGY PTT 164.1 22.9 - 35.8 03/12/2018 Result Comment: Critical Result(s) saeed samir Taylor at 03/12/2018 14:34 by LINDA. Read back OK. [facility] CHEM PANEL eGFR 62 03/12/2018 Result [...] should be multiplied by the estimated BMI. [facility] CHEM PANEL Total Protein 6.4 6.4 - 8.4 03/12/2018 [facility] CHEM PANEL AGAP 11.0 10.0 - 20.0 03/12/2018 [facility] CHEM PANEL B/C Ratio 17 6 - 25 03/12/2018 [facility] CHEM PANEL Calcium Lvl 8.1 8.5 - 10.5 03/12/2018 [facility] CHEM PANEL Creatinine Lvl 0.95 0.50 - 1.40 03/12/2018 [facility] CHEM PANEL Sodium Lvl 140 135 - 145 03/12/2018 [facility] CHEM PANEL Potassium Lvl 4.0 3.5 - 5.1 03/12/2018 [facility] CHEM PANEL Chloride Lvl 107 95 - 109 03/12/2018 [facility] CHEM PANEL CO2 26 24 - 32 03/12/2018 [facility] CHEM PANEL BUN 16 7 - 22 03/12/2018 [facility] CHEM PANEL Glucose Lvl 113 70 - 99 03/12/2018 [facility] CHEM PANEL Bili Total 0.7 0.2 - 1.3 03/12/2018 [facility] CHEM PANEL Alk Phos 54 39 - 136 03/12/2018 [facility] CHEM PANEL AST 31 0 - 37 03/12/2018 [facility] CHEM PANEL Albumin Lvl 3.3 3.5 - 5.0 03/12/2018 [facility] CHEM PANEL Globulin 3.1 2.7 - 4.2 03/12/2018 [facility] CHEM PANEL A/G Ratio 1.1 0.7 - 1.6 03/12/2018 [facility] CHEM PANEL ALT 49 0 - 65 03/12/2018 [facility] HEMATOLOGY Basophils 0.5 0.0 - 1.0 03/12/2018 [facility] HEMATOLOGY Lymphocytes # 4.5 1.0 - 5.5 03/12/2018 [facility] HEMATOLOGY Segs-Bands # 6.2 1.5 - 8.1 03/12/2018 [facility] HEMATOLOGY Monocytes 8.5 2.0 - 12.0 03/12/2018 [facility] HEMATOLOGY Eosinophils 1.5 0.0 - 4.0 03/12/2018 [facility] HEMATOLOGY Lymphocytes 37.5 20.0 - 40.0 03/12/2018 [facility] HEMATOLOGY Segs 52.0 45.0 - 75.0 03/12/2018 [facility] HEMATOLOGY Eosinophils # 0.2 0.0 - 0.5 03/12/2018 [facility] HEMATOLOGY Monocytes # 1.0 0.0 - 0.8 03/12/2018 [facility] HEMATOLOGY Basophils # 0.1 0.0 - 0.2 03/12/2018 [facility] HEMATOLOGY INR 1.13 0.85 - 1.17 03/12/2018 [facility] HEMATOLOGY PT 14.5 12.0 - 14.7 03/12/2018 [facility] HEMATOLOGY PTT 47.1 22.9 - 35.8 03/12/2018 [facility] HEMATOLOGY MPV 7.8 7.4 - 10.4 03/12/2018 [facility] HEMATOLOGY Platelet 298 133 - 450 03/12/2018 [facility] HEMATOLOGY MCV 94.2 80.0 - 98.0 03/12/2018 [facility] HEMATOLOGY MCH 34.5 27.0 - 31.0 03/12/2018 [facility] HEMATOLOGY RDW 13.3 11.5 - 14.5 03/12/2018 [facility] HEMATOLOGY MCHC 36.7 32.0 - 36.0 03/12/2018 [facility] HEMATOLOGY Hct 38.8 36.0 - 48.0 03/12/2018 [facility] HEMATOLOGY RBC 4.12 4.20 - 5.40 03/12/2018 [facility] HEMATOLOGY Hgb 14.2 12.0 - 16.0 03/12/2018 [facility] HEMATOLOGY WBC 12.0 3.7 - 10.4 03/12/2018 [facility] HEMATOLOGY INR 1.09 0.85 - 1.17 03/12/2018 [facility] HEMATOLOGY PT 14.1 12.0 - 14.7 03/12/2018 [facility] HEMATOLOGY Basophils # 0.1 0.0 - 0.2 03/12/2018 [facility] HEMATOLOGY Lymphocytes # 5.8 1.0 - 5.5 03/12/2018 [facility] HEMATOLOGY Eosinophils # 0.3 0.0 - 0.5 03/12/2018 [facility] HEMATOLOGY Eosinophils 2.4 0.0 - 4.0 03/12/2018 [facility] HEMATOLOGY Basophils 0.9 0.0 - 1.0 03/12/2018 [facility] HEMATOLOGY Segs-Bands # 4.9 1.5 - 8.1 03/12/2018 [facility] HEMATOLOGY Monocytes 9.3 2.0 - 12.0 03/12/2018 [facility] HEMATOLOGY Monocytes # 1.1 0.0 - 0.8 03/12/2018 [facility] HEMATOLOGY Segs 39.9 45.0 - 75.0 03/12/2018 [facility] HEMATOLOGY Lymphocytes 47.5 20.0 - 40.0 03/12/2018 [facility] HEMATOLOGY RDW 13.4 11.5 - 14.5 03/12/2018 [facility] HEMATOLOGY Platelet 316 133 - 450 03/12/2018 [facility] HEMATOLOGY MPV 7.8 7.4 - 10.4 03/12/2018 [facility] HEMATOLOGY Hgb 14.9 12.0 - 16.0 03/12/2018 [facility] HEMATOLOGY MCH 34.2 27.0 - 31.0 03/12/2018 [facility] MCHC 35.7 32.0 - 36.0 03/12/2018 [facility] HEMATOLOGY RBC 4.35 4.20 - 5.40 03/12/2018 [facility] HEMATOLOGY MCV 96.0 80.0 - 98.0 03/12/2018 [facility] HEMATOLOGY WBC 12.2 3.7 - 10.4 03/12/2018 [facility] HEMATOLOGY Hct 41.8 36.0 - 48.0 03/12/2018 [facility] CHEM PANEL eGFR 58 03/11/2018 Result [...] should be multiplied by the estimated BMI. [facility] CHEM PANEL BUN 13 7 - 22 03/11/2018 [facility] CHEM PANEL Glucose Lvl 87 70 - 99 03/11/2018 [facility] CHEM PANEL Alk Phos 60 39 - 136 03/11/2018 [facility] CHEM PANEL Creatinine Lvl 1.00 0.50 - 1.40 03/11/2018 [facility] CHEM PANEL Sodium Lvl 140 135 - 145 03/11/2018 [facility] CHEM PANEL Chloride Lvl 107 95 - 109 03/11/2018 [facility] CHEM PANEL CO2 24 24 - 32 03/11/2018 [facility] CHEM PANEL Total Protein 7.0 6.4 - 8.4 03/11/2018 [facility] CHEM PANEL Calcium Lvl 8.9 8.5 - 10.5 03/11/2018 [facility] CHEM PANEL Potassium Lvl 4.6 3.5 - 5.1 03/11/2018 [facility] CHEM PANEL AST 28 0 - 37 03/11/2018 [facility] CHEM PANEL ALT 51 0 - 65 03/11/2018 [facility] CHEM PANEL Albumin Lvl 3.9 3.5 - 5.0 03/11/2018 [facility] CHEM PANEL Bili Total 0.3 0.2 - 1.3 03/11/2018 [facility] CHEM PANEL A/G Ratio 1.3 0.7 - 1.6 03/11/2018 [facility] CHEM PANEL Globulin 3.1 2.7 - 4.2 03/11/2018 [facility] CHEM PANEL B/C Ratio 13 6 - 25 03/11/2018 [facility] CHEM PANEL AGAP 13.6 10.0 - 20.0 03/11/2018 [facility] HEMATOLOGY Basophils # 0.1 0.0 - 0.2 03/11/2018 [facility] HEMATOLOGY Monocytes # 1.0 0.0 - 0.8 03/11/2018 [facility] HEMATOLOGY Eosinophils # 0.3 0.0 - 0.5 03/11/2018 [facility] HEMATOLOGY Lymphocytes # 4.3 1.0 - 5.5 03/11/2018 [facility] HEMATOLOGY Eosinophils 2.8 0.0 - 4.0 03/11/2018 [facility] HEMATOLOGY Basophils 1.0 0.0 - 1.0 03/11/2018 [facility] Segs-Bands # 5.8 1.5 - 8.1 03/11/2018 [facility] HEMATOLOGY Segs 50.1 45.0 - 75.0 03/11/2018 [facility] Lymphocytes 37.1 20.0 - 40.0 03/11/2018 [facility] Monocytes 9.0 2.0 - 12.0 03/11/2018 [facility] LIPIDS CHD Risk 6.91 3.90 - 5.80 03/11/2018 [facility] LIPIDS LDL (Calculated) 73 <=99 mg/dL 03/11/2018 [facility] LIPIDS VLDL 63 03/11/2018 [facility] LIPIDS HDL 23 >=61 mg/dL 03/11/2018 [facility] LIPIDS Trig 315 <=149 mg/dL 03/11/2018 [facility] LIPIDS Chol 159 <=199 mg/dL 03/11/2018 [facility] Pathology Reports No Data Provided for [...] MRI of the brachial plex us. SL: [id number] 07/25/2018 [facility] [place] [facility] cervical wo contrast MRI Clinical Indication: [...] foramina should be confirmed on CT. SL: [id number] 07/25/2018 [facility] Consultation Notes No Data Provided for This Section Discharge Summaries No Data Provided for This Section History and Physicals No Data Provided for This Section Vital Signs Vital Sign Value Date Comments Source Respitory Rate 15 03/13/2018 [facility] Temperature Oral (F) 98.6 F 03/13/2018 [facility] Systolic (mm Hg) 123 03/13/2018 [facility] Diastolic (mm Hg) 59 03/13/2018 [facility] Systolic (mm Hg) 113 03/13/2018 [facility] Diastolic (mm Hg) 74 03/13/2018 [facility] Respitory Rate 15 03/13/2018 [facility] Systolic (mm Hg) 133 03/13/2018 [facility] Diastolic (mm Hg) 69 03/13/2018 [facility] Respitory Rate 18 03/13/2018 [facility] Temperature Oral (F) 98.9 F 03/13/2018 [facility] Temperature Oral (F) 98.3 F 03/13/2018 [facility] Weight 101.3 03/12/2018 [facility] Height 173.99 cm 03/12/2018 [facility] BMI Calculated 33.46 03/12/2018 [facility] Height 175.2 cm 03/11/2018 [facility] BMI Calculated 32.19 03/11/2018 [facility] Weight 98.8 03/11/2018 [facility] Encounters Location Location Details Encounter Type Encounter Number Reason For Visit Attending Provider ADM Date DC Date Status Source OD [id number] 490 - BRONCHITIS NOS WILBERT CHAVES [facility]29[facility] [id number] Ye Thomas 03/12/2018 03/13/2018 [facility] [place] [facility] [id number] Shiv Brambila 07/25/2018 07/26/2018 [facility] Procedures Procedure Code Date Perfomer Comments Source Bilateral inguinal hernia repair [id number] [facility] Cervical laminectomy [id number] [facility] Assessment and Plan Assessment and Plan Date [...] seen and examined by me with the resident/OPERATION MANAGER/PA and I agree with the History/Exam documented. 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
--- OUTSIDE RECORDS SUMMARY | 2020-05-28 12:00 | XMS REPORT | Continuity of Care Document ---
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 3246 Additional Details Additional description of pr ocedure: None Equipment details: None Specimens removed: Biopsy samples as d etailed above Estimated blood loss (mL): Less than 10 Standardized report: S [id number]_v3 Attestation Signer name: Moon Schwartz MD I attest that I was present for the entire procedure. I reviewed the stored images and agree w ith the report as written. Signed by: Moon Schwartz MD on 04/01/2020 1:37 PM Dictated By: MOON SCHWARTZ MD 36 COPY TO: NICANOR KWON MD, [facility] CHEST SINGLE (PORTABLE)2020-04-01 12:57:00 [place] [address] Patient Name: JOSEPH LONGO MR #: [id number] : 1950 Age/Sex: 69/M Req #: [id number] Adm Physician: Ordered by: MOON SCHWARTZ MD Report #: [id number] Location: CT Room/Bed: Procedure: [id number] DX/CHEST SINGLE ( PORTABLE) Exam Date: 04/01/20 Exam Time: 1130 REPORT STATUS: Signed EXAMINATION: CH EST SINGLE (PORTABLE) INDICATION: Postprocedural COMPARISON: CT-gu ided biopsy of earlier the same day FINDINGS: LINES/TUBES:None LUNGS:The right lung is well-inflated. Left lung volumes are relatively low. No focal consolidation or pulmonary edema. PLEURA:No pleural effusion or pneumothorax. MEDIASTINUM:Left upper mediastinal prominence corresponds wit h known upper mediastinal soft tissue mass. The heart is not enlarged. CHRISTOPHE MATTHEW/SOFT TISSUES:No acute osseous injury. ABDOMEN:No free air under the ellyn phragm. IMPRESSION: No pneumothorax status post left upper mediastina l biopsy. Signed by: Moon Schwartz MD on 04/01/2020 12:57 PM Dictated B y: MOON SCHWARTZ MD [address] scribed By: RADHA on 04/01/20 1257 COPY TO: MOON SCHWARTZ MD CHEST SINGLE (PORTABLE)2020-04-01 12:42:00 [place] [address] Patient Name: JOSEPH LONGO MR #: [id number] : 1950 Age/Sex: 69/M Req #: [id number] Adm Physician: Ordered by: MOON SCHWARTZ MD Report #: [id number] Location: CT Room/Bed: Procedure: [id number] DX/CHEST SINGLE ( PORTABLE) Exam Date: 04/01/20 Exam Time: 1130 REPORT STATUS: Signed EXAMINATION: CH EST SINGLE (PORTABLE) INDICATION: Postprocedural COMPARISON: CT-gu ided biopsy of earlier the same day FINDINGS: LINES/TUBES:None LUNGS:The right lung is well-inflated. Left lung volumes are relatively low. No focal consolidation or pulmonary edema. PLEURA:No pleural effusion or pneumothorax. MEDIASTINUM:Left upper mediastinal prominence corresponds wit h known upper mediastinal soft tissue mass. The heart is not enlarged. CHRISTOPHE MATTHEW/SOFT TISSUES:No acute osseous injury. ABDOMEN:No free air under the ellyn phragm. IMPRESSION: No pneumothorax status post left upper mediastina l biopsy. Signed by: Moon Schwartz MD on 04/01/2020 12:44 PM Dictated B y: MOON SCHWARTZ MD [address] scribed By: RADHA on 04/01/20 1244 COPY TO: MOON SCHWARTZ MD Blood leukocytes automated count (number/volume)2020-03-24 05:50:00* Test Item Value Reference Range Interpretation Comments White Blood Count (test code = 6690-2) 11.37 4.8-10.8 [facility] erythrocytes automated count (number/volume)2020-03-24 05:50:00* Test Item Value Reference Range Interpretation Comments Red Blood Count (test code = 789-8) 3.75 4.3-5.7 [facility] CenterBlood hemoglobin measurement (moles/volume)2020-03-24 05:50:00* Test Item Value Reference Range Interpretation Comments Hemoglobin (test code = 82505-7) 12.7 14.0-18.0 [facility] CenterAutomated blood hematocrit (volume fraction)2020-03-24 05:50:00* Test Item Value Reference Range Interpretation Comments Hematocrit (test code = 4544-3) 35.4 38.2-49.6 [facility] CenterAutomated erythrocyte mean corpuscular usyxrp8480-23-50 05:50:00* Test Item Value Reference Range Interpretation Comments Mean Corpuscular Volume (test code = 787-2) 94.4 81-99 [facility] CenterAutomated erythrocyte mean corpuscular hemoglobin (mass per erythrocyte)2020-03-24 05:50:00* Test Item Value Reference Range Interpretation Comments Mean Corpuscular Hemoglobin (test code = 785-6) 33.9 28-32 [facility] CenterAutomated erythrocyte mean corpuscular hemoglobin concentration measurement (mass/volume)2020-03-24 05:50:00* Test Item Value Reference Range Interpretation Comments Mean Corpuscular Hemoglobin Concent (test code = 786-4) 35.9 31-35 [facility] CenterRDW GwvGu-Icv9540-43-03 05:50:00* Test Item Value Reference Range Interpretation Comments Red Cell Distribution Width (test code = 73569-9) 13.9 11.7 -14.4 [facility] CenterAutomated blood platelet count (count/volume)2020-03-24 05:50:00* Test Item Value Reference Range Interpretation Comments Platelet Count (test code = 777-3) 333 140-360 [facility] CenterAutomated blood segmented neutrophil count as percentage of total hxfxmolmre3754-62-38 05:50:00* Test Item Value Reference Range Interpretation Comments Neutrophils (%) (Auto) (test code = 18175-7) 53.2 38.7-80.0 [facility] CenterAutomated blood lymphocyte count as percentage ot total hqeanqmgwp8969-25-22 05:50:00* Test Item Value Reference Range Interpretation Comments Lymphocytes (%) (Auto) (test code = 736-9) 33.9 18.0-39.1 [facility] CenterAutomated blood monocyte count as percentage of total wfcoxbzhex5137-31-98 05:50:00* Test Item Value Reference Range Interpretation Comments Monocytes (%) (Auto) (test code = 5905-5) 10.0 4.4-11.3 [facility] CenterAutomated blood eosinophil count as percentage of total oioksuqtge9806-84-39 05:50:00* Test Item Value Reference Range Interpretation Comments Eosinophils (%) (Auto) (test code = 713-8) 2.2 0.0-6.0 [facility] CenterAutomated blood basophil count as percentage of total xlnxthzqde3923-63-11 05:50:00* Test Item Value Reference Range Interpretation Comments Basophils (%) (Auto) (test code = 706-2) 0.4 0.0-1.0 [facility] CenterFluoroscopic procedure less than one hour hfcbbbjc7767-22-94 05:50:00* Test Item Value Reference Range Interpretation Comments IM GRANULOCYTES % (test code = IM GRANULOCYTES %) 0.3 0.0- 1.0 [facility] CenterAutomated blood neutrophil count 2020-03-24 05:50:00* Test Item Value Reference Range Interpretation Comments Neutrophils # (Auto) (test code = 751-8) 6.0 2.1-6.9 [facility] CenterBlood lymphocytes count (number/volume) 2020-03-24 05:50:00* Test Item Value Reference Range Interpretation Comments Lymphocytes # (Auto) (test code = 39345-3) 3.9 1.0-3.2 [facility] CenterBlood monocytes automated count (number/volume)2020-03-24 05:50:00* Test Item Value Reference Range Interpretation Comments Monocytes # (Auto) (test code = 742-7) 1.1 0.2-0.8 [facility] CenterAutomated blood eosinophil count 2020-03-24 05:50:00* Test Item Value Reference Range Interpretation Comments Eosinophils # (Auto) (test code = 711-2) 0.3 0.0-0.4 [facility] CenterAutomated blood basophil count (count/volume)2020-03-24 05:50:00* Test Item Value Reference Range Interpretation Comments Basophils # (Auto) (test code = 704-7) 0.1 0.0-0.1 [facility] CenterFluoroscopic procedure less than one hour bgoopidu4228-21-70 05:50:00* Test Item Value Reference Range Interpretation Comments Absolute Immature Granulocyte (auto (hiral t code = Absolute Immature Granulocyte (auto) 0.03 0-0.1 [facility] CenterProthrombin time (PT) in platelet poor plasma by coagulation rrxpm0830-09-76 05:50:00* Test Item Value Reference Range Interpretation Comments Prothrombin Time (test code = 5902-2) 12.5 11.9-14.5 [facility] CenterINR in Platelet poor plasma by Coagulation cmofu0905-75-07 05:50:00* Test Item Value Reference Range Interpretation Comments Prothromb Time International Ratio (test code = 6301-6) 0.88 Oral Anticoagulant Therapy INR Values:1. Low Intensity Therapy 1.5 - 2.02 . Moderate Intensity Therapy 2.0 - 3.03. High Intensity Therapy(1) 2.5 - 3. 54. High Intensity Therapy(2) 3.0 - 4.05. Panic Value INR > 5.0 [facility] plasma sodium measurement (moles/volume)2020-03-24 05:50:00* Test Item Value Reference Range Interpretation Comments Sodium Level (test code = 2951-2) 141 136-145 [facility] Hospitalerum or plasma potassium measurement (moles/volume)2020-03-24 05:50:00* Test Item Value Reference Range Interpretation Comments Potassium Level (test code = 2823-3) 4.6 3.5-5.1 [facility] Hospitalerum or plasma chloride measurement (moles/volume)2020-03-24 05:50:00* Test Item Value Reference Range Interpretation Comments Chloride Level (test code = 2075-0) 106 98-107 [facility] Hospitalerum or plasma carbon dioxide, total measurement (moles/volume)2020-03-24 05:50:00* Test Item Value Reference Range Interpretation Comments Carbon Dioxide Level (test code = 2028-9) 26 22-29 [facility] Hospitalerum or plasma anion iat7385-22-14 05:50:00* Test Item Value Reference Range Interpretation Comments Anion Gap (test code = 14553-6) 13.6 8-16 [facility]er[facility] or plasma urea nitrogen measurement (mass/volume)2020-03-24 05:50:00* Test Item Value Reference Range Interpretation Comments Blood Urea Nitrogen (test code = 3094-0) 13 7-26 [facility] Hospitalerum or plasma creatinine measurement (mass/volume)2020-03-24 05:50:00* Test Item Value Reference Range Interpretation Comments Creatinine (test code = 2160-0) 0.86 0.72-1.25 [facility] Hospitalerum or plasma urea nitrogen/creatinine mass mtlmt5840-83-00 05:50:00* Test Item Value Reference Range Interpretation Comments BUN/Creatinine Ratio (test code = 3097-3) 15 6-25 [facility] CenterEstimated glomerular filtration rate (GFR) kogpicbaniesp1125-87-50 05:50:00* Test Item Value Reference Range Interpretation Comments Estimat Glomerular Filtration Rate (test code = 201529927) > 60 >60 Ranges were taken from the National Kidney Disease Education Program and the [facility] Kidney Foundation literature.Reference ranges:60 or greater: Ihsmub93-89 ( for 3 consecutive months): Chronic kidney disease 15 or less: Kidney failureFort Duncan Regional Medical CenterGlucose vuglsuoyjpp2287-03-78 05:50:00* Test Item Value Reference Range Interpretation Comments Glucose Level (test code = KBX7234) 93 74-118 [facility] Hospitalerum or plasma calcium measurement (mass/volume)2020-03-24 05:50:00* Test Item Value Reference Range Interpretation Comments Calcium Level (test code = 62439-3) 8.9 8.4-10.2 [facility] Hospitalerum or plasma magnesium measurement (mass/volume)2020-03-24 05:50:00* Test Item Value Reference Range Interpretation Comments Magnesium Level (test code = 80942-2) 1.9 1.3-2.1 [facility] Hospitalerum or plasma total bilirubin measurement (mass/volume)2020-03-24 05:50:00* Test Item Value Reference Range Interpretation Comments Total Bilirubin (test code = 1975-2) 0.5 0.2-1.2 [facility] CenterFluoroscopic procedure less than one hour yxnsnziu5679-58-35 05:50:00* Test Item Value Reference Range Interpretation Comments Aspartate Amino Transf (AST/SGOT) (test code = Aspartate Amino Transf (AST/SGOT)) 14 5-34 [facility] Hospitalerum or plasma alanine aminotransferase measurement (enzymatic activity/volume)2020-03-24 05:50:00* Test Item Value Reference Range Interpretation Comments Alanine Aminotransferase (ALT/SGPT) (test code = 1742-6) 13 0-55 [facility] Hospitalerum or plasma protein measurement (mass/volume)2020-03-24 05:50:00* Test Item Value Reference Range Interpretation Comments Total Protein (test code = 2885-2) 6.6 6.5-8.1 [facility] Hospitalerum or plasma albumin measurement (mass/volume)2020-03-24 05:50:00* Test Item Value Reference Range Interpretation Comments Albumin (test code = 1751-7) 3.4 3.5-5.0 [facility] CenterPlasma globulin measurement (mass/volume) 2020-03-24 05:50:00* Test Item Value Reference Range Interpretation Comments Globulin (test code = 75006-1) 3.2 2.3-3.5 [facility] Hospitalerum or plasma albumin/globulin mass qrwnb5899-42-84 05:50:00* Test Item Value Reference Range Interpretation Comments Albumin/Globulin Ratio (test code = 1759-0) 1.1 0.8-2.0 [facility] Hospitalerum or plasma alkaline phosphatase measurement (enzymatic activity/volume)2020-03-24 05:50:00* Test Item Value Reference Range Interpretation Comments Alkaline Phosphatase (test code = 6768-6) 74 40-150 [facility] CenterFluoroscopic procedure less than one hour fmwrlwja4156-93-20 05:20:00* Test Item Value Reference Range Interpretation Comments Hemoglobin A1c Percent (test code = Hemoglobin A1c Percent) 4.6 4.0-7.0 [facility] Hospitalerum or plasma triglyceride measurement (mass/volume)2020-03-23 05:20:00* Test Item Value Reference Range Interpretation Comments Triglycerides Level (test code = 2571-8) 135 0-149 [facility] Hospitalerum or plasma cholesterol measurement (mass/volume)2020-03-23 05:20:00* Test Item Value Reference Range Interpretation Comments Cholesterol Level (test code = 2093-3) 69 0-199 Less than 200 mg/dL Low Hpzl585 - 239 mg/dL Borderline Mwwv007 m g/dl and greater High Risk [facility]erum or plasma cholesterol in LDL measurement (mass/volume) 2020-03-23 05:20:00* Test Item Value Reference Range Interpretation Comments LDL Cholesterol (test code = 2089-1) 17 60-130 [facility] Hospitalerum or plasma cholesterol in HDL measurement (mass/volume)2020-03-23 05:20:00* Test Item Value Reference Range Interpretation Comments HDL Cholesterol (test code = 2085-9) 25 40-60 [facility] Hospitalerum or plasma total cholesterol/cholesterol in HDL mass wioxs2383-15-39 05:20:00* Test Item Value Reference Range Interpretation Comments Cholesterol/HDL Ratio (test code = 9830-1) 2.8 3.9-4.7 [facility] Hospitalerum or plasma creatine kinase measurement (enzymatic activity/volume)2020-03-23 05:20:00* Test Item Value Reference Range Interpretation Comments Creatine Kinase (test code = 2157-6) 100 30-200 [facility] Hospitalerum or plasma creatine kinase MB measurement (mass/volume)2020-03-23 05:20:00* Test Item Value Reference Range Interpretation Comments Creatine Kinase MB (test code = 64014-0) 2.40 0-5.0 [facility] CenterTroponin I measurement by highly sensitive enzyme ftgevrowgxd2399-90-25 05:20:00* Test Item Value Reference Range Interpretation Comments Troponin I (test code = 94179-7) 0.003 0-0.300 [facility] Hospitalerum or plasma thyrotropin measurement by detection limit <= 0.005 miu/l (units/volume)2020-03-23 05:20:00* Test Item Value Reference Range Interpretation Comments Thyroid Stimulating Hormone (TSH) (test code = 82565-5) 1.127 0.350-4.940 [facility] Hospitalerum or plasma carcinoembryonic antigen measurement (mass/volume)2020-03-23 05:20:00* Test Item Value Reference Range Interpretation Comments Carcinoembryonic Antigen (test code = 2039-6) 1.3 0.0-4.7 Nonsmokers <3.9 Smokers <5.6[employer] Electrochemiluminescence Immunoassay(ECLIA)Values obtained with different assay methods or kitscannot be used interchangeably. Results cannot beinterpreted as absolute evidence of the presence orabsence of malignant disease.Performed at: [facility] [id number] Director: Greyson Phoenix MD, Phone: [phone] Duncan Regional Medical CenterCT CHEST [id number] 03:21:00 [facility] [address] [place] [address] Patient Name: JOSEPH LONGO MR #: [id number] : 1950 Age/Sex: 69/M Req #: [id number] Adm Physician: Ordered by: JUNIOR MARCUM rt #: [id number] Location: Room/Be d: Procedure: [id number] CT/CT CHEST W Exam Date: 03/22/20 Exam Time: 0145 REPORT STATUS: Signed EXAM: CT Chest WITH contras t (PE protocol) 03/22/2020 1:45 AM INDICATION: Chest pain COMPARISON: N one TECHNIQUE: Chest was scanned utilizing a multidetector helical scanne r from the lung apex through the level of the diaphragm after administration o f IV contrast. Thin section reconstructions were obtained with special concent ration on the pulmonary arteries. Coronal and sagittal reformations were obtai mukul. Pulmonary embolism protocol was performed. IV CONTRAST: 100 mL of Isovue 370 COMPLICATIONS: None RADIATION DOSE: Total DLP: 634 mGy*cm Estimated effective dose: (DLP x 0.014 x size factor) mSv C TDIvol has been reviewed. It is below the limits set by the Radiation Protocol Committee (RPC). Dose modulation, iterative reconstruction, and/or weigh t based adjustment of the mA/kV was utilized to reduce the radiation dose to a s low as reasonably achievable. FINDINGS: LINES/ TUBES: None. LUNGS AND AIRWAYS: A 6 cm locally invasive left upper lobe apical medial mass invades the mediastinum and encases the left subclavian and carotid arteries a nd partially encases the thoracic aorta and brachiocephalic artery. Bibasilar atelectasis. Elevated left hemidiaphragm. PLEURA: The pleural spaces are c lear. HEART AND MEDIASTINUM: The thyroid gland is normal. Enlarged mediast inal lymph nodes include 1.7 cm left aortopulmonary lymph node (series 2 anabelle ge 44). 1.1 cm left lower paratracheal lymph node (series 2 image 45). 1.1 c m right aortopulmonary lymph node (series 2 image 48). The heart is normal in size. There is no pericardial effusion. Triple vessel coronary artery calcif ic atherosclerosis. Mild main pulmonary artery dilation, 3.7 cm in diameter. A ortic calcifications. UPPER ABDOMEN: Colonic diverticula. BONES: A 2 cm expansile lytic metastasis in T5 vertebral body extends into the left T5 neuroforamina and adjacent anterolateral left epidural space. SOFT TISSUES : Unremarkable. Air in the left subclavian artery is due to injection. IM PRESSION: No pulmonary embolus. A 6 cm locally invasive left upper lo be apicomedial mass invades the mediastinum and encases the left subclavian an d carotid arteries and partially encases the distal aortic arch and brachiocep halic artery. Malignant mediastinal adenopathy as above. Expansile destructive lytic metastasis in T5 vertebral body invades the left T5 neural foramina and left anterolateral epidural space. Elevated left hemidiaphragm elevation likely due to left phrenic nerve malignant involvement. Triple vessel c oronary artery calcific atherosclerosis. Pulmonary emphysema. Mild main pu lmonary artery dilation suggestive of pulmonary hypertension. Borderline cardi ac magnet. Signed by: Arian Elliott DO on 03/22/2020 3:35 AM Dictate d By: ARIAN ELLIOTT DO 4 COPY TO: MARCEL MARCUM DO Fluoroscopic procedure less than one hour ejkubyfy3899-20-97 02:58:00* Test Item Value Reference Range Interpretation Comments Coronavirus (PCR) (test code = Coronavirus (PCR)) NOT DETECTED NOTD ETECTED SARS-COV2/RT-PCRNegative results do not preclude SARS-CoV-2 infection and should not be used as the sole basis for patient management decisions. Negative result s must be combined with clinical observations, patient history, and epidemiologi radha information. A false negative result may occur if a specimen is improperly c ollected, transported or handled.The limit of detection for this assay is 250 co pies/mLThe SARS-CoV-2 test is a rapid, real-time RT-PCR test intended for the qu alitative detection of nucleic acid from SARS-CoV-2 in nasopharyngeal swab speci men collected from individuals suspected of COVID-19 by their healthcare provide r. This test has not been Food and Drug Administration (FDA) cleared or approved and has been authorized by FDA under an Emergency Use Authorization (EUA). This EUA will be effective until the declaration that circumstances exist justifying the authorization of the emergency use of in vitro diagnostic test for detectio n and or diagnosis of COVID-19 is terminated under section 564(b) of the Act, or the the EUA is revoked under 564(g) of the ACT.Testing performed by [facility] [place] [place], [place] [address]NHTFort [facility] Regional Medical CenterFluoroscopic procedure less than one hour duration 2020-03-22 02:50:00* Test Item Value Reference Range Interpretation Comments Lactic Acid Level (test code = Lactic Acid Level) 1.2 0.5- 2.0 [facility] CenterBlood llxaqmu4624-38-16 02:50:00* Test Item Value Reference Range Interpretation Comments Blood Culture (test code = 93098010) NO GROWTH AFTER 48 HOURS [facility] CenterCapillary blood glucose measurement by glucometer (mass/volume)2020-03-22 00:40:00* Test Item Value Reference Range Interpretation Comments Bedside Glucose (test code = 14347-7) 161 70-120 Meter ID: [id number] Duncan Regional Medical CenterBNP Bld-mCnc 2020-03-22 00:35:00* Test Item Value Reference Range Interpretation Comments B-Type Natriuretic Peptide (test code = 54814-4) 17.4 0-100 [facility] Hospitalerum or plasma lipase measurement (enzymatic activity/volume)2020-03-22 00:35:00* Test Item Value Reference Range Interpretation Comments Lipase (test code = 3040-3) 61 8-78 [facility] CenterABDOMEN-1VIEW (KUB)2019-06-02 10:49:00 [facility] [address] [address] Patient Name: JOSEPH LONGO MR #: [id number] : [birth year] Age/Sex: 69/M Req #: [id number] Adm Physician: Ordered by: GEETA GHOTRA MD Report #: [id number] Location: [facility] Room/Bed: Procedure: DX/ABD OMEN-1VIEW (KUB) Exam Date: 06/02/19 Exam Time: 1025 REPORT STATUS: Signed Exam: KUB - 2 views Clinical History: Renal calculi Comparison: None Findi ngs: No radiographically apparent urinary calculi. Nonobstructive bowel gas p attern. Phleboliths and surgical clips in the pelvis. The osseous structures a ppear unremarkable. Degenerative changes of the lower lumbar spine. Impre ssion: No radiographically apparent renal calculi. Signed by: Ary Schwartz MD on 06/02/2019 10:51 AM Dictated By: MOON SCHWARTZ MD Electronical ly Signed By: MOON SCHWARTZ MD on 06/02/19 1051 Transcribed By: RADHA on 9 1051 COPY TO: GEETA GHOTRA MD CT CERVICAL SPINE [id number] 17:52:[address] [address] Patient Name: JOSEPH LONGO MR #: [id number] : 1950 Age/Sex: 68/M Req #: [id number] Adm Physician: Ordered by: GAURAV CAMARILLO MD Report #: [id number] Location: ER Room/Bed: Procedure: CT/CT CERVICAL SPINE GRAHAM valderrama Date: 04/17/18 Exam Time: 1708 REPORT STATU S: Signed Exams: Head and cervical spine CTs without IV contrast History: F all, pain Comparison studies: Head and cervical spine CT of 12/15/[address] 02/18/2015. Axial images were obtained from the brain and cervical spine. Coronal and sagittal images reconstructed from the axial data. Intravenous contrast: None Findings: Head CT: Scalp/skull: Left parietal s calp hematoma without underlying fracture. Unchanged nonaggressive-appearing 6 mm lytic lesion in the posterior right parietal vertex, stable since 2016. Brain sulci: Appropriate for age. Ventricles: Normal in size and configurat ion. No hydrocephalus. Extra-axial spaces: No masses. No fluid collecti ons. Parenchyma: No masses, acute hemorrhage, acute or chronic cortical vascular insults. Sellar/suprasellar region: No abnormalities. Craniocerv ical junction: Patent foramen magnum. No Chiari one malformation. Incident al findings: Atherosclerotic calcifications in the carotid siphons. Cervica l spine CT: Airway: Patent. Fractures: None. Soft tissues: No gross abnormalities. Atlantoaxial articulation: Intact. Alignment: Normal lordo sis. No scoliosis. Cervicomedullary junction: No abnormalities. Patent foramen magnum. Vertebrae: No infection or neoplasm. Degenerative changes: Multilevel disc degeneration, worse/moderate at C5-C6 and at C6-C7. Mild can al stenosis at C6-C7 and at C7-T1 due to disc osteophyte complexes. Multilevel uncovertebral facet arthrosis result in multilevel foraminal stenosis (mild bilaterally at C3-C4, mild/moderate bilaterally at C4-C5, moderate bilaterally at C5-C6 moderate-severe left and moderate right at C6-C7). Incidental fi ndings: Calcified atherosclerosis in the cervical carotid bulbs. Mild maryam eptal emphysema at the lung apices. IMPRESSION: Head CT: 1. No acut e intracranial abnormalities. 2. Left parietal scalp hematoma without underly ing fracture. Cervical spine CT: 1. No cervical spine fracture or sublux ation. 2. Multilevel degenerative changes as described. 3. Cannot adequate ly evaluate for ligament, spinal cord and or vascular abnormalities on this ex am. A preliminary report was provided by Dr. Donohue. Signed by: Dr. Nataly M.D. on 04/17/2018 7:53 PM Dictated By: BASSAM MORALES MD E lectronically Signed By: BASSAM MORALES MD on 04/17/181952 Transcribed By: BRITTANY PULIDO on 04/17/181952 COPY TO: GAURAV CAMARILLO MD CT BRAIN WO 2018-04-17 17:52:[address] [address] Patient Name: JOSEPH LONGO MR #: [id number] : 1950 Age/Sex: 68/M Req #: [id number] Adm Physician: Ordered by: GAURAV CAMARILLO MD Report #: [id number] Location: ER Room/Bed: Procedure: [id number] CT/CT BRAIN WO Exam Date: 04/17/18 Exam Time: 1708 REPORT STATUS: Signed Exams: Head and cervical spine CTs without IV contrast History: Fall, pain Comparison studies: Head and cervical spine CT of 12/15/[address] 01/22. Axial images were obtained from the brain and cervical spine. Bazzi l and sagittal images reconstructed from the axial data. Intravenous contrast: None Findings: Head CT: Scalp/skull: Left parietal scalp tracie letty without underlying fracture. Unchanged nonaggressive-appearing 6 mm lytic lesion in the posterior right parietal vertex, stable since 2016. Brain sulci: Appropriate for age. Ventricles: Normal in size and configuration. No h ydrocephalus. Extra-axial spaces: No masses. No fluid collections. Parenchyma: No masses, acute hemorrhage, acute or chronic cortical vascular insults. Sellar/suprasellar region: No abnormalities. Craniocervical junc tion: Patent foramen magnum. No Chiari one malformation. Incidental findin gs: Atherosclerotic calcifications in the carotid siphons. Cervical spine C T: Airway: Patent. Fractures: None. Soft tissues: No gross abnormali ties. Atlantoaxial articulation: Intact. Alignment: Normal lordosis. No s coliosis. Cervicomedullary junction: No abnormalities. Patent foramen magnum. Vertebrae: No infection or neoplasm. Degenerative changes: Multi level disc degeneration, worse/moderate at C5-C6 and at C6-C7. Mild canal sten osis at C6-C7 and at C7-T1 due to disc osteophyte complexes. Multilevel uncove rtebral facet arthrosis result in multilevel foraminal stenosis (mild bilatera lly at C3-C4, mild/moderate bilaterally at C4-C5, moderate bilaterally at C5-C 6 moderate-severe left and moderate right at C6-C7). Incidental findings: Calcified atherosclerosis in the cervical carotid bulbs. Mild paraseptal emp hysema at the lung apices. IMPRESSION: Head CT: 1. No acute intracr anial abnormalities. 2. Left parietal scalp hematoma without underlying fract ure. Cervical spine CT: 1. No cervical spine fracture or subluxation. 2. Multilevel degenerative changes as described. 3. Cannot adequately evalua te for ligament, spinal cord and or vascular abnormalities on this exam. A preliminary report was provided by Dr. Donohue. Signed by: Dr. Bassam negron M.D. on 04/17/2018 7:53 PM Dictated By: BASSAM MORALES MD Electronic ally Signed By: BASSAM MORALES MD on 04/17/181952 Transcribed By: RADHA on 04/17/181952 COPY TO: GAURAV CAMARILLO MD CHEST SINGLE (PORTABLE)2018-04-17 17:45:[address] [address] Patient Name: JOSEPH LONGO MR #: [id number] : 1950 Age/Sex: 68/M Req #: [id number] Adm Physician: Ordered by: GAURAV CAMARILLO MD Report #: [id number] Location: ER Room/Bed: Procedure: [id number] DX/CHEST SINGLE (PORTABLE) Exam Date: 04/17/18 Exam Time: [address] ATUS: Signed PROCEDURE: A single AP view of the chest. COMPARISON: est radiograph and CT from 02/13/2018 INDICATIONS: FALL FINDING S: Lines/tubes: None. Lungs: The lungs are well inflated and clear. Th ere is no evidence of pneumonia or pulmonary edema. Pleura: There is n o pleural effusion or pneumothorax. Heart and mediastinum: The heart and the mediastinum are unremarkable. Bones: No acute bony abnormality. IMPRESSION: No acute cardiopulmonary disease. Dictated by: Robert thomas M.D. on 04/17/2018 at 17:45 Electronically approved by: Robert palm M.D. on 04/17/2018 at 17:45 Dictated By: ROBERT Baron lectronically Signed By: ROBERT VALLE MD on 04/17/181744 Transcribed By: [facility] E on 04/17/181744 COPY TO: GAURAV CAMARILLO MD SHOULDER LEFT VMKFWPXI4321-94-75 17:42:[address] [address] Patient Name: JOSEPH LONGO MR #: [id number] : 1950 Age/Sex: 68/M Req #: [id number] Adm Physician: Ordered by: GAURAV CAMARILLO MD Report #: [id number] Location: ER Room/Bed: Procedure: [id number] DX/SHOULDER LEFT COMPLETE Exam Date: 04/17/18 Exam Time: 1718 REPORT STA TUS: Signed PROCEDURE: X-RAY LEFT SHOULDER, COMPLETE COMPARISON: est CT 02/13/2018 INDICATIONS: FALL SHOULDER PAIN FINDINGS: Th ere are no acute fractures, dislocations, lytic or blastic lesions. The bones are well-mineralized. A well corticated density projects within the coracocl avicular interval and may represent a ligamentous calcification or old avuls ion, stable from chest CT 02/13/2018. The coracoclavicular and acromioclavicul ar intervals are intact. The soft-tissues are unremarkable. CONCLUS ION: No acute osseous abnormalities. Dictated by: Robert Valle M.D. on 04/17/2018 at 17:42 Electronically approved by: Medardo Oakes on 04/17/2018 at 17:42 Dictated By: ROBERT VLALE MD Elect ronically Signed By: ROBERT VALLE MD on 04/17/181741 Transcribed By: TELLO on 04/17/181741 COPY TO: GAURAV CAMARILLO MD Creatine Kinase MB 2018-04-17 17:35:00* Test Item Value Reference Range Interpretation Comments Creatine Kinase MB (test code = 28502-9) 4.20 0-5.0 [facility] CenterTroponin Z8793-57-51 17:35:00* Test Item Value Reference Range Interpretation Comments Troponin I (test code = FAU3329) -0.001 0-0.300 [facility] Xfraq2881-69-02 17:29:00* Test Item Value Reference Range Interpretation Comments Sodium Level (test code = 2951-2) 140 136-145 [facility] CenterPotassium Waeum1806-10-58 17:29:00* Test Item Value Reference Range Interpretation Comments Potassium Level (test code = 2823-3) 4.4 3.5-5.1 [facility] CenterChloride Lftrc3072-76-82 17:29:00* Test Item Value Reference Range Interpretation Comments Chloride Level (test code = 2075-0) 107 98-107 [facility] CenterCarbon Dioxide Xwcmc7502-41-38 17:29:00* Test Item Value Reference Range Interpretation Comments Carbon Dioxide Level (test code = 2028-9) 20 22-29 L [facility] CenterAnion Tyz4623-15-02 17:29:00* Test Item Value Reference Range Interpretation Comments Anion Gap (test code = 93465-5) 17.4 8-16 H [facility] CenterBlood Urea Aiwtrlga5517-14-92 17:29:00* Test Item Value Reference Range Interpretation Comments Blood Urea Nitrogen (test code = 3094-0) 22 7-26 [facility] CenterCreatinine2018-06-27 17:29:00* Test Item Value Reference Range Interpretation Comments Creatinine (test code = 2160-0) 1.20 0.72-1.25 [facility] CenterBUN/Creatinine Wppod2618-01-68 17:29:00* Test Item Value Reference Range Interpretation Comments BUN/Creatinine Ratio (test code = 3097-3) 18 6-25 [facility] CenterEstimat Glomerular Filtration Rate 2018-04-17 17:29:00* Test Item Value Reference Range Interpretation Comments Estimat Glomerular Filtration Rate (test code = 09949-0) 60 >60 Ranges were taken from the National Kidney Disease Education Program and the [facility] Kidney Foundation literature.Reference ranges:60 or greater: Yaslmc29-51 ( for 3 consecutive months): Chronic kidney disease 15 or less: Kidney failureFort [facility] Regional Medical CenterGlucose Waxfa0038-93-18 17:29:00* Test Item Value Reference Range Interpretation Comments Glucose Level (test code = NYI2237) 103 74-118 [facility] CenterCalcium Dxpxc3243-68-93 17:29:00* Test Item Value Reference Range Interpretation Comments Calcium Level (test code = 18978-9) 9.8 8.4-10.2 [facility] CenterTotal Vtfyitlcv8760-95-77 17:29:00* Test Item Value Reference Range Interpretation Comments Total Bilirubin (test code = 1975-2) 0.5 0.2-1.2 [facility] CenterAspartate Amino Transf (AST/SGOT) 2018-04-17 17:29:00* Test Item Value Reference Range Interpretation Comments Aspartate Amino Transf (AST/SGOT) (test code = Aspartate Amino Transf (AST/SGOT)) 55 5-34 H [facility] CenterAlanine Aminotransferase (ALT/SGPT) 2018-04-17 17:29:00* Test Item Value Reference Range Interpretation Comments Alanine Aminotransferase (ALT/SGPT) (test code = 1742-6) 68 0-55 H [facility] CenterTotal Jgolhmx0507-43-02 17:29:00* Test Item Value Reference Range Interpretation Comments Total Protein (test code = 2885-2) 7.2 6.5-8.1 [facility] CenterAlbumin2018-06-27 17:29:00* Test Item Value Reference Range Interpretation Comments Albumin (test code = 1751-7) 4.0 3.5-5.0 [facility] CenterGlobulin2018-06-27 17:29:00* Test Item Value Reference Range Interpretation Comments Globulin (test code = 63976-7) 3.2 2.3-3.5 [facility] CenterAlbumin/Globulin Vneke6153-35-42 17:29:00 * Test Item Value Reference Range Interpretation Comments Albumin/Globulin Ratio (test code = 1759-0) 1.3 0.8-2.0 [facility] CenterAlkaline Rcoybokcenx8050-08-99 17:29:00* Test Item Value Reference Range Interpretation Comments Alkaline Phosphatase (test code = 6768-6) 54 40-150 [facility] CenterCreatine Mixqiq7241-14-21 17:29:00* Test Item Value Reference Range Interpretation Comments Creatine Kinase (test code = 2157-6) 522 30-200 H [facility] CenterWhite Blood Jivoj8118-78-36 16:57:00* Test Item Value Reference Range Interpretation Comments White Blood Count (test code = 6690-2) 9.73 4.8-10.8 [facility] CenterRed Blood Hjwfh3027-66-89 16:57:00* Test Item Value Reference Range Interpretation Comments Red Blood Count (test code = 789-8) 4.06 4.3-5.7 L [facility] CenterHemoglobin2018-06-27 16:57:00* Test Item Value Reference Range Interpretation Comments Hemoglobin (test code = 62957-0) 13.6 14.0-18.0 L [facility] CenterHematocrit2018-06-27 16:57:00* Test Item Value Reference Range Interpretation Comments Hematocrit (test code = 4544-3) 37.3 38.2-49.6 L [facility] CenterMean Corpuscular Jwqmmx0641-53-54 16:57:00* Test Item Value Reference Range Interpretation Comments Mean Corpuscular Volume (test code = 787-2) 91.9 81-99 [facility] CenterMean Corpuscular Ngjtodaovm4591-05-73 16:57:00* Test Item Value Reference Range Interpretation Comments Mean Corpuscular Hemoglobin (test code = 785-6) 33.5 28-32 H [facility] CenterMean Corpuscular Hemoglobin Concent 2018-04-17 16:57:00* Test Item Value Reference Range Interpretation Comments Mean Corpuscular Hemoglobin Concent (test code = 786-4) 36.5 31-35 H [facility] CenterRed Cell Distribution Ukudh6399-40-33 16:57:00* Test Item Value Reference Range Interpretation Comments Red Cell Distribution Width (test code = 22140-1) 13.1 11.7 -14.4 [facility] CenterPlatelet Ykiwp9178-16-26 16:57:00* Test Item Value Reference Range Interpretation Comments Platelet Count (test code = 777-3) 335 140-360 [facility] CenterNeutrophils (%) (Auto)2018-04-17 16:57:00 * Test Item Value Reference Range Interpretation Comments Neutrophils (%) (Auto) (test code = 13098-0) 48.9 38.7-80.0 [facility] CenterLymphocytes (%) (Auto)2018-04-17 16:57:00 * Test Item Value Reference Range Interpretation Comments Lymphocytes (%) (Auto) (test code = 736-9) 40.8 18.0-39.1 H [facility] CenterMonocytes (%) (Auto)2018-04-17 16:57:00* Test Item Value Reference Range Interpretation Comments Monocytes (%) (Auto) (test code = 5905-5) 7.5 4.4-11.3 [facility] CenterEosinophils (%) (Auto)2018-04-17 16:57:00 * Test Item Value Reference Range Interpretation Comments Eosinophils (%) (Auto) (test code = 713-8) 2.0 0.0-6.0 [facility] CenterBasophils (%) (Auto)2018-04-17 16:57:00* Test Item Value Reference Range Interpretation Comments Basophils (%) (Auto) (test code = 706-2) 0.4 0.0-1.0 [facility] CenterIM GRANULOCYTES %2018-04-17 16:57:00* Test Item Value Reference Range Interpretation Comments IM GRANULOCYTES % (test code = IM GRANULOCYTES %) 0.4 0.0- 1.0 [facility] CenterNeutrophils # (Auto)2018-04-17 16:57:00* Test Item Value Reference Range Interpretation Comments Neutrophils # (Auto) (test code = 751-8) 4.8 2.1-6.9 [facility] CenterLymphocytes # (Auto)2018-04-17 16:57:00* Test Item Value Reference Range Interpretation Comments Lymphocytes # (Auto) (test code = 85662-8) 4.0 1.0-3.2 H [facility] CenterMonocytes # (Auto)2018-04-17 16:57:00* Test Item Value Reference Range Interpretation Comments Monocytes # (Auto) (test code = 742-7) 0.7 0.2-0.8 [facility] CenterEosinophils # (Auto)2018-04-17 16:57:00* Test Item Value Reference Range Interpretation Comments Eosinophils # (Auto) (test code = 711-2) 0.2 0.0-0.4 [facility] CenterBasophils # (Auto)2018-04-17 16:57:00* Test Item Value Reference Range Interpretation Comments Basophils # (Auto) (test code = 704-7) 0.0 0.0-0.1 [facility] CenterAbsolute Immature Granulocyte (auto 2018-04-17 16:57:00* Test Item Value Reference Range Interpretation Comments Absolute Immature Granulocyte (auto (hiral t code = Absolute Immature Granulocyte (auto) 0.04 0-0.1 [facility] CenterELECTROLYTES2018-05-23 09:49:009.7 [facility] FzupdbcLCYBLCLBVGSU2167-15-07 09:49:0053[facility] HermannELECTROLYTES 2018-03-13 09:49:98618Kaehxdhr ZopvjkgQWHAGOGQNEXI2333-84-85 09:49:0024[facility] DzixgexTPTRORBDZVXC0166-26-92 09:49:003.7[facility] QzbjaqpXFRZELROUAYL4490-17-59 09:49:81878Lncpaldc RltridzMLAWOYAJNGLA6707-98-70 09:49:007.8[facility] [place] VOOIFGGWQMDO4678-26-08 09:49:77487Ojrodpyp ApikhnzNOSLYOSQGVLH0256-44-05 09:49:0016[facility] HbntlfaRYJCYYLDHNRR7843-18-14 09:49:001.07[facility] HIPLSKXUKT8470-74-97 09:49:52172Yvsuvepc TspqvogREZKZAKYRI1142-25-72 09:49:00 13.1[facility] JsjcdncKDHUFWHXVU5002-37-95 09:49:007.8[facility] HermannHEMATOLOGY 2018-03-13 09:49:0036.0[facility] KijxwyqVTNEBYPYWW9930-93-46 09:49:0095.3[facility] LwtbhasBSQBZPLLVM1812-05-26 09:49:00* Test Item Value Reference Range Interpretation Comments MCH (test code = MCH) 34.3 pg 27.0-31.0 [facility] RaqjddpNLMUUZFVPU9563-71-47 09:49:0011.4[facility] HermannHEMATOLOGY 2018-03-13 09:49:0013.3[facility] ImpljujXLOSYWNRUM2238-83-53 09:49:0036.9[facility] JavrnfwEGJEZDNYWC8660-12-35 09:49:003.87[facility] KysrqxfJHRGOJWBWU6480-93-52 09:49:00* Test Item Value Reference Range Interpretation Comments PTT (test code = PTT) 30.7 s 22.9-35.8 [facility] SouthFcoaomkOFIGJIOJVZ6186-26-96 09:49:00* Test Item Value Reference Range Interpretation Comments PT (test code = PT) 12.8 s 12.0-14.7 [facility] – SouthXnnsyeiCWYDUXWHVA8172-73-52 09:49:00* Test Item Value Reference Range Interpretation Comments INR (test code = INR) 0.96 1 0.85-1.17 [facility] – SouthIyhuoodGUTBVBEBPY5258-09-44 19:05:28* Test Item Value Reference Range Interpretation Comments PTT (test code = PTT) 164.1 s 22.9-35.8 [facility] HermannCHEM KJQHJ5205-74-53 12:06:0062[facility] HermannCHEM PANEL 2018-03-12 12:06:006.4[facility] HermannCHEM ENQDQ6601-25-95 12:06:0011.0[facility] HermannCHEM LFXEM1611-28-81 12:06:00* Test Item Value Reference Range Interpretation Comments B/C Ratio (test code = B/C Ratio) 17 1 6-25 [facility] HermannCHEM FONGY6466-47-29 12:06:008.1[facility] HermannCHEM PANEL 2018-03-12 12:06:000.95[facility] HermannCHEM CMYEM0205-29-63 12:06:85787Ozimweiu HermannCHEM USOEQ1577-53-18 12:06:004.0[facility] HermannCHEM QEGRJ1358-66-71 12:06:39481Ajkwadst HermannCHEM BNEZL3876-01-46 12:06:0026[facility] HermannCHEM VLYYH7709-11-51 12:06:0016[facility] HermannCHEM BKTNI5869-32-78 12:06:21711 [facility]annCHEM CRILP5381-89-89 12:06:000.7[facility] HermannCHEM PANEL 2018-03-12 12:06:0054[facility] HermannCHEM JGRLA1122-38-91 12:06:0031[facility] HermannCHEM CVHXY2118-46-48 12:06:003.3[facility] HermannCHEM HMXET2368-57-86 12:06:003.1[facility] HermannCHEM JVHME7777-75-24 12:06:00* Test Item Value Reference Range Interpretation Comments A/G Ratio (test code = A/G Ratio) 1.1 1 0.7-1.6 [facility]annCHEM CJYVC0497-15-63 12:06:0049[facility] HermannHEMATOLOGY 2018-03-12 12:06:000.5[facility] OmibgcxSADGSNNHWD1901-28-63 12:06:004.5[facility] SddtayjIAEUTDMJXX2076-26-72 12:06:006.2[facility] FugjzexQOFUWPFWVM0435-12-38 12:06:008.5[facility] CxbqoztFVTPVAYKOA7111-12-25 12:06:001.5[facility] [place] YIXJHDQQST9909-01-51 12:06:0037.5[facility] IckxkquWHIBKRFVRM1163-77-36 12:06:00 52.0[facility] QtatdkjKRSEEHXUYO1291-95-48 12:06:000.2[facility] HermannHEMATOLOGY 2018-03-12 12:06:001.0[facility] QvqdbejCSXKLCNPGC2123-79-06 12:06:000.1[facility] CgymmlmLHHYJKSSTM1021-46-60 12:06:00* Test Item Value Reference Range Interpretation Comments INR (test code = INR) 1.13 1 0.85-1.17 [facility] PqbkhhnTKUMGBDZUH6224-63-81 12:06:00* Test Item Value Reference Range Interpretation Comments PT (test code = PT) 14.5 s 12.0-14.7 [facility] CxndftqMLWMVSEOFS4642-00-21 12:06:00* Test Item Value Reference Range Interpretation Comments PTT (test code = PTT) 47.1 s 22.9-35.8 [facility] RlsglgyYOWOWZFKVF7595-94-99 12:06:007.8[facility] HermannHEMATOLOGY 2018-03-12 12:06:75068Bctrlkit EksspntRJIZTCQECK4007-71-74 12:06:0094.2[facility] IxetparCUDSXWABDQ7038-52-12 12:06:00* Test Item Value Reference Range Interpretation Comments MCH (test code = MCH) 34.5 pg 27.0-31.0 [facility] UkctgibIGTHIAPJMX5292-67-56 12:06:0013.3[facility] HermannHEMATOLOGY 2018-03-12 12:06:0036.7[facility] VqhgyzzKCSMMMYTIS1971-98-66 12:06:0038.8[facility] BbsobwnULSXRXKWUP8208-16-85 12:06:004.12[facility] ThvaazcDIPADVKLVL8134-58-01 12:06:0014.2[facility] EptirrwTZSQMERYZC7310-59-51 12:06:0012.0[facility] [place] FTKKJMWWJY5542-43-80 05:20:00* Test Item Value Reference Range Interpretation Comments INR (test code = INR) 1.09 1 0.85-1.17 [facility] GcjlcuvMKNIQJZBOE1574-43-40 05:20:00* Test Item Value Reference Range Interpretation Comments PT (test code = PT) 14.1 s 12.0-14.7 [facility] NerakdmSIXBGMCESM9150-69-00 01:24:000.1[facility] HermannHEMATOLOGY 2018-03-12 01:24:005.8[facility] RgcpspnVOCZFECOSS8921-10-50 01:24:000.3[facility] ClxsmasGUCAVTKITL2355-35-38 01:24:002.4[facility] DbqujdrSLODAYKIRO6895-37-25 01:24:000.9[facility] CmfkpvfCGXYCRCFZV0782-65-44 01:24:004.9[facility] [place] WQVFYKEWKD6705-65-34 01:24:009.3[facility] JisdpxjNSDHOMEAUV2496-22-97 01:24:001.1 [facility] UsincyaGQBFARPKHJ1723-14-68 01:24:0039.9[facility] HermannHEMATOLOGY 2018-03-12 01:24:0047.5[facility] TppgedwNETUYATUTC2468-38-13 01:24:0013.4[facility] SlvilkiHFNLGOSODW7281-65-04 01:24:54965Cfdgxxdx McvoagvYOWVJZSKHI7730-55-97 01:24:007.8[facility] ApmixxmLWZDNJVGHZ2224-99-76 01:24:0014.9[facility] [place] CECRAPWXJW9305-20-86 01:24:00* Test Item Value Reference Range Interpretation Comments MCH (test code = MCH) 34.2 pg 27.0-31.0 [facility] GapesnnHPXBJWRFRW8277-16-07 01:24:0035.7[facility] HermannHEMATOLOGY 2018-03-12 01:24:004.35[facility] IuepnhvDODZPDQLHF3466-34-13 01:24:0096.0[facility] FweccscZSPLSXBLWS3481-38-24 01:24:0012.2[facility] CldsvlaQMEITWGPFO1257-93-96 01:24:0041.8[facility] HermannCHEM FCYSW1780-04-03 17:39:0058[facility] HermannCHEM BUVIL5970-28-01 17:39:0013[facility] HermannCHEM EKPVT3259-05-36 17:39:0087 [facility] HermannCHEM DALKL8314-42-06 17:39:0060[facility] HermannCHEM PANEL 2018-03-11 17:39:001.00[facility] HermannCHEM WVSWI1785-86-25 17:39:14875Sbneohkv HermannCHEM KTBBL9977-19-12 17:39:03802Rgqshmhw HermannCHEM JFXOY5789-28-72 17:39:0024[facility] HermannCHEM HFEOO0408-01-02 17:39:007.0[facility] HermannCHEM CHCXA5312-48-33 17:39:008.9[facility] HermannCHEM ALCOE1742-46-22 17:39:004.6 [facility] HermannCHEM ETJUF8580-90-17 17:39:0028[facility] HermannCHEM PANEL 2018-03-11 17:39:0051[facility] HermannCHEM BRVZI2759-99-60 17:39:003.9[facility] HermannCHEM ZNTSN1258-34-57 17:39:000.3[facility] HermannCHEM JOYCT6807-25-66 17:39:00* Test Item Value Reference Range Interpretation Comments A/G Ratio (test code = A/G Ratio) 1.3 1 0.7-1.6 [facility] HermannCHEM EAMSO3105-59-64 17:39:003.1[facility] HermannCHEM PANEL 2018-03-11 17:39:00* Test Item Value Reference Range Interpretation Comments B/C Ratio (test code = B/C Ratio) 13 1 6-25 [facility] HermannCHEM ASYNZ9970-04-26 17:39:0013.6[facility] HermannHEMATOLOGY 2018-03-11 17:39:000.1[facility] RlgxlppZFJWEGHZRE6159-64-51 17:39:001.0[facility] NfloxroZFZBWOFSDU7399-12-54 17:39:000.3[facility] KdtmpiwROSFHXMLOL2711-37-34 17:39:004.3[facility] GihdqdeRRRGFAZDOG4727-00-61 17:39:002.8[facility] [place] PBCZMUKCUN6922-85-06 17:39:001.0[facility] LhjkmnyVFEDGXQIOM7454-34-92 17:39:005.8 [facility] AyntalgIQSOWBIYIA7877-59-89 17:39:0050.1[facility] HermannHEMATOLOGY 2018-03-11 17:39:0037.1[facility] MtidbftSJKISBMUPX4967-89-98 17:39:009.0[facility] JvcaqmlIDFFPZ3160-67-04 17:39:00* Test Item Value Reference Range Interpretation Comments CHD Risk (test code = CHD Risk) 6.91 1 3.90-5.80 [facility] EgdpxxkXCZABM2617-76-95 17:39:0073[facility] IxnulfxAXHWAG2444-11-85 17:39:00* Test Item Value Reference Range Interpretation Comments VLDL (test code = VLDL) 63 1 [facility] FuksnktBEOYPC8655-06-11 17:39:0023[facility] AnealrpFUVOGB8913-93-36 17:39:10156Nfaeewau TtskbsgGFSMHI1007-34-73 17:39:61236Hztpgdwg HermannWhite Blood Qwllx1578-82-93 21:48:00* Test Item Value Reference Range Interpretation Comments White Blood Count (test code = 6690-2) 10.71 4.8-10.8 [facility] CenterRed Blood Waycx7488-22-01 21:48:00* Test Item Value Reference Range Interpretation Comments Red Blood Count (test code = 789-8) 5.04 4.3-5.7 [facility] CenterHemoglobin2018-04-25 21:48:00* Test Item Value Reference Range Interpretation Comments Hemoglobin (test code = 12325-4) 17.3 14.0-18.0 LIPEMIC SPECIMEN, PERFORMED SALINE SPECIMEN AND RAN 3 TIMES FOR CONSISTENCYFort [facility] Medical CenterHematocrit2018-04-25 21:48:00* Test Item Value Reference Range Interpretation Comments Hematocrit (test code = 4544-3) 46.1 38.2-49.6 LIPEMIC SPECIMEN, PERFORMED SALINE SPECIMEN AND RAN 3 TIMES FOR CONSISTENCYFort [facility] Regional Medical CenterMean Corpuscular Bziuuw1788-14-43 21:48:00* Test Item Value Reference Range Interpretation Comments Mean Corpuscular Volume (test code = 787-2) 91.5 81-99 [facility] CenterMean Corpuscular Aynsjzvpif2303-59-08 21:48:00* Test Item Value Reference Range Interpretation Comments Mean Corpuscular Hemoglobin (test code = 785-6) 34.3 28-32 H [facility] CenterMean Corpuscular Hemoglobin Concent 2018-02-13 21:48:00* Test Item Value Reference Range Interpretation Comments Mean Corpuscular Hemoglobin Concent (test code = 786-4) 37.5 31-35 H [facility] CenterRed Cell Distribution Nimwc9230-72-06 21:48:00* Test Item Value Reference Range Interpretation Comments Red Cell Distribution Width (test code = 02018-0) 14.9 11.7 -14.4 H [facility] CenterPlatelet Zyxjn5925-57-60 21:48:00* Test Item Value Reference Range Interpretation Comments Platelet Count (test code = 777-3) 390 140-360 H [facility] CenterNeutrophils (%) (Auto)2018-02-13 21:48:00 * Test Item Value Reference Range Interpretation Comments Neutrophils (%) (Auto) (test code = 47403-6) 42.3 38.7-80.0 [facility] CenterLymphocytes (%) (Auto)2018-02-13 21:48:00 * Test Item Value Reference Range Interpretation Comments Lymphocytes (%) (Auto) (test code = 736-9) 43.3 18.0-39.1 H [facility] CenterMonocytes (%) (Auto)2018-02-13 21:48:00* Test Item Value Reference Range Interpretation Comments Monocytes (%) (Auto) (test code = 5905-5) 10.7 4.4-11.3 [facility] CenterEosinophils (%) (Auto)2018-02-13 21:48:00 * Test Item Value Reference Range Interpretation Comments Eosinophils (%) (Auto) (test code = 713-8) 2.5 0.0-6.0 [facility] CenterBasophils (%) (Auto)2018-02-13 21:48:00* Test Item Value Reference Range Interpretation Comments Basophils (%) (Auto) (test code = 706-2) 0.7 0.0-1.0 [facility] CenterIM GRANULOCYTES %2018-02-13 21:48:00* Test Item Value Reference Range Interpretation Comments IM GRANULOCYTES % (test code = IM GRANULOCYTES %) 0.5 0.0- 1.0 [facility] CenterNeutrophils # (Auto)2018-02-13 21:48:00* Test Item Value Reference Range Interpretation Comments Neutrophils # (Auto) (test code = 751-8) 4.5 2.1-6.9 [facility] CenterLymphocytes # (Auto)2018-02-13 21:48:00* Test Item Value Reference Range Interpretation Comments Lymphocytes # (Auto) (test code = 62220-0) 4.6 1.0-3.2 H [facility] CenterMonocytes # (Auto)2018-02-13 21:48:00* Test Item Value Reference Range Interpretation Comments Monocytes # (Auto) (test code = 742-7) 1.2 0.2-0.8 H [facility] CenterEosinophils # (Auto)2018-02-13 21:48:00* Test Item Value Reference Range Interpretation Comments Eosinophils # (Auto) (test code = 711-2) 0.3 0.0-0.4 [facility] CenterBasophils # (Auto)2018-02-13 21:48:00* Test Item Value Reference Range Interpretation Comments Basophils # (Auto) (test code = 704-7) 0.1 0.0-0.1 [facility] CenterAbsolute Immature Granulocyte (auto 2018-02-13 21:48:00* Test Item Value Reference Range Interpretation Comments Absolute Immature Granulocyte (auto (hiral t code = Absolute Immature Granulocyte (auto) 0.05 0-0.1 [facility] CenterB-Type Natriuretic Hnppkex0062-44-90 21:46:00* Test Item Value Reference Range Interpretation Comments B-Type Natriuretic Peptide (test code = 05499-0) -10.0 0-100 [facility] CenterB-Type Natriuretic Dtbwaxi5967-72-00 21:46:00* Test Item Value Reference Range Interpretation Comments B-Type Natriuretic Peptide (test code = 80177-0) -10.0 0-100 [facility] CenterCreatine Kinase VA7310-83-63 21:29:00* Test Item Value Reference Range Interpretation Comments Creatine Kinase MB (test code = 15164-2) 3.20 0-5.0 [facility] CenterTroponin D9786-87-83 21:29:00* Test Item Value Reference Range Interpretation Comments Troponin I (test code = TDS8408) 0.008 0-0.300 [facility] CenterD-Dimer Quantitative (PE/DVT)2018-02-13 21:26:00* Test Item Value Reference Range Interpretation Comments D-Dimer Quantitative (PE/DVT) (test code = 01479-5) 0.91 0. 00-0.45 H [facility] CenterD-Dimer Quantitative (PE/DVT)2018-02-13 21:26:00* Test Item Value Reference Range Interpretation Comments D-Dimer Quantitative (PE/DVT) (test code = 27531-9) 0.91 0. 00-0.45 [facility]odium Yakti2323-41-83 21:25:00* Test Item Value Reference Range Interpretation Comments Sodium Level (test code = 2951-2) 139 136-145 [facility] CenterPotassium Zrgpq4721-96-96 21:25:00* Test Item Value Reference Range Interpretation Comments Potassium Level (test code = 2823-3) 3.8 3.5-5.1 [facility] CenterChloride Fbedc9552-98-83 21:25:00* Test Item Value Reference Range Interpretation Comments Chloride Level (test code = 2075-0) 106 98-107 [facility] CenterCarbon Dioxide Levdg3722-32-46 21:25:00* Test Item Value Reference Range Interpretation Comments Carbon Dioxide Level (test code = 2028-9) 22 22-29 [facility] CenterAnion Xzb2137-21-86 21:25:00* Test Item Value Reference Range Interpretation Comments Anion Gap (test code = 84310-7) 14.8 8-16 [facility] CenterBlood Urea Vsmpfskm8150-27-96 21:25:00* Test Item Value Reference Range Interpretation Comments Blood Urea Nitrogen (test code = 3094-0) 15 7-26 [facility] CenterCreatinine2018-04-25 21:25:00* Test Item Value Reference Range Interpretation Comments Creatinine (test code = 2160-0) 0.95 0.72-1.25 [facility] CenterBUN/Creatinine Sjmoe4859-59-45 21:25:00* Test Item Value Reference Range Interpretation Comments BUN/Creatinine Ratio (test code = 3097-3) 16 6-25 [facility] CenterEstimat Glomerular Filtration Rate 2018-02-13 21:25:00* Test Item Value Reference Range Interpretation Comments Estimat Glomerular Filtration Rate (test code = 32531-0) 60- >60 Ranges were taken from the National Kidney Disease Education Program and the [facility] Kidney Foundation literature.Reference ranges:60 or greater: Uarusb94-42 ( for 3 consecutive months): Chronic kidney disease 15 or less: Kidney failureFort Duncan Regional Medical CenterGlucose Cxpvs5023-14-26 21:25:00* Test Item Value Reference Range Interpretation Comments Glucose Level (test code = NTH7305) 106 74-118 [facility] CenterCalcium Rgyhz7505-53-94 21:25:00* Test Item Value Reference Range Interpretation Comments Calcium Level (test code = 11548-2) 9.4 8.4-10.2 [facility] CenterTotal Pcvficowp9893-97-48 21:25:00* Test Item Value Reference Range Interpretation Comments Total Bilirubin (test code = 1975-2) 0.4 0.2-1.2 [facility] CenterAspartate Amino Transf (AST/SGOT) 2018-02-13 21:25:00* Test Item Value Reference Range Interpretation Comments Aspartate Amino Transf (AST/SGOT) (test code = Aspartate Amino Transf (AST/SGOT)) 27 5-34 [facility] CenterAlanine Aminotransferase (ALT/SGPT) 2018-02-13 21:25:00* Test Item Value Reference Range Interpretation Comments Alanine Aminotransferase (ALT/SGPT) (test code = 1742-6) 38 0-55 [facility] CenterTotal Qnrxbsw2027-62-62 21:25:00* Test Item Value Reference Range Interpretation Comments Total Protein (test code = 2885-2) 7.4 6.5-8.1 [facility] CenterAlbumin2018-04-25 21:25:00* Test Item Value Reference Range Interpretation Comments Albumin (test code = 1751-7) 3.8 3.5-5.0 [facility] CenterGlobulin2018-04-25 21:25:00* Test Item Value Reference Range Interpretation Comments Globulin (test code = 16796-2) 3.6 2.3-3.5 H [facility] CenterAlbumin/Globulin Cvlmq4783-67-38 21:25:00 * Test Item Value Reference Range Interpretation Comments Albumin/Globulin Ratio (test code = 1759-0) 1.1 0.8-2.0 [facility] CenterAlkaline Ypokxltllwd3621-10-00 21:25:00* Test Item Value Reference Range Interpretation Comments Alkaline Phosphatase (test code = 6768-6) 63 40-150 [facility] CenterCreatine Yzncbp1831-68-38 21:25:00* Test Item Value Reference Range Interpretation Comments Creatine Kinase (test code = 2157-6) 172 30-200 [facility] CenterActivated Partial Thromboplast Time 2018-02-13 21:13:00* Test Item Value Reference Range Interpretation Comments Activated Partial Thromboplast Time (test code = 71232-1) 27.4 23.8-35.5 [facility] CenterActivated Partial Thromboplast Time 2018-02-13 21:13:00* Test Item Value Reference Range Interpretation Comments Activated Partial Thromboplast Time (test code = 43144-3) 27.4 23.8-35.5 [facility] CenterProthrombin Adyb6593-64-45 21:12:00* Test Item Value Reference Range Interpretation Comments Prothrombin Time (test code = 5902-2) 12.5 11.9-14.5 [facility] CenterProthromb Time International Ratio 2018-02-13 21:12:00* Test Item Value Reference Range Interpretation Comments Prothromb Time International Ratio (test code = 6301-6) 1.01 Oral Anticoagulant Therapy INR Values:1. Low Intensity Therapy 1.5 - 2.02 . Moderate Intensity Therapy 2.0 - 3.03. High Intensity Therapy(1) 2.5 - 3. 54. High Intensity Therapy(2) 3.0 - 4.05. Panic Value INR > 5.0 [facility] CenterProthrombin Ttum3489-01-70 21:12:00* Test Item Value Reference Range Interpretation Comments Prothrombin Time (test code = 5902-2) 12.5 11.9-14.5 [facility] CenterProthromb Time International Ratio 2018-02-13 21:12:00* Test Item Value Reference Range Interpretation Comments Prothromb Time International Ratio (test code = 6301-6) 1.01 Oral Anticoagulant Therapy INR Values:1. Low Intensity Therapy 1.5 - 2.02 . Moderate Intensity Therapy 2.0 - 3.03. High Intensity Therapy(1) 2.5 - 3. 54. High Intensity Therapy(2) 3.0 - 4.05. Panic Value INR > 5.0 [facility] CenterCreatine Kinase YQ7010-26-62 07:42:00* Test Item Value Reference Range Interpretation Comments Creatine Kinase MB (test code = 97580-3) 3.80 0-5.0 [facility] CenterTroponin W9608-61-14 07:42:00* Test Item Value Reference Range Interpretation Comments Troponin I (test code = POU1672) -0.001 0-0.300 [facility]odium Srxti6247-89-92 07:39:00* Test Item Value Reference Range Interpretation Comments Sodium Level (test code = 2951-2) 141 136-145 [facility] CenterPotassium Zwbie3174-49-76 07:39:00* Test Item Value Reference Range Interpretation Comments Potassium Level (test code = 2823-3) 4.2 3.5-5.1 [facility] CenterChloride Sytxt6417-34-85 07:39:00* Test Item Value Reference Range Interpretation Comments Chloride Level (test code = 2075-0) 112 98-107 H [facility] CenterCarbon Dioxide Muzxm5665-12-25 07:39:00* Test Item Value Reference Range Interpretation Comments Carbon Dioxide Level (test code = 2028-9) 22 22-29 [facility] CenterAnion Rtc6970-11-25 07:39:00* Test Item Value Reference Range Interpretation Comments Anion Gap (test code = 43639-4) 11.2 8-16 [facility] CenterBlood Urea Olqjuivf3806-62-31 07:39:00* Test Item Value Reference Range Interpretation Comments Blood Urea Nitrogen (test code = 3094-0) 14 7-26 [facility] CenterCreatinine2018-02-26 07:39:00* Test Item Value Reference Range Interpretation Comments Creatinine (test code = 2160-0) 0.82 0.72-1.25 [facility] CenterBUN/Creatinine Gkxzj0806-62-63 07:39:00* Test Item Value Reference Range Interpretation Comments BUN/Creatinine Ratio (test code = 3097-3) 17 6-25 [facility] CenterEstimat Glomerular Filtration Rate 2017-12-17 07:39:00* Test Item Value Reference Range Interpretation Comments Estimat Glomerular Filtration Rate (test code = 09081-4) 60- >60 Ranges were taken from the National Kidney Disease Education Program and the [facility] Kidney Foundation literature.Reference ranges:60 or greater: Vgcqtf10-28 ( for 3 consecutive months): Chronic kidney disease 15 or less: Kidney failureFort [facility] Regional Medical CenterGlucose Tkqxy3344-79-24 07:39:00* Test Item Value Reference Range Interpretation Comments Glucose Level (test code = FOK4620) 116 74-118 [facility] CenterCalcium Odqzm6215-54-70 07:39:00* Test Item Value Reference Range Interpretation Comments Calcium Level (test code = 43949-4) 8.3 8.4-10.2 L [facility] CenterTotal Rzlkltpmb4535-57-49 07:39:00* Test Item Value Reference Range Interpretation Comments Total Bilirubin (test code = 1975-2) 0.4 0.2-1.2 [facility] CenterAspartate Amino Transf (AST/SGOT) 2017-12-17 07:39:00* Test Item Value Reference Range Interpretation Comments Aspartate Amino Transf (AST/SGOT) (test code = Aspartate Amino Transf (AST/SGOT)) 31 5-34 [facility] CenterAlanine Aminotransferase (ALT/SGPT) 2017-12-17 07:39:00* Test Item Value Reference Range Interpretation Comments Alanine Aminotransferase (ALT/SGPT) (test code = 1742-6) 43 0-55 [facility] CenterTotal Fwnplvb6154-00-36 07:39:00* Test Item Value Reference Range Interpretation Comments Total Protein (test code = 2885-2) 5.7 6.5-8.1 L [facility] CenterAlbumin2018-02-26 07:39:00* Test Item Value Reference Range Interpretation Comments Albumin (test code = 1751-7) 3.4 3.5-5.0 L [facility] CenterGlobulin2018-02-26 07:39:00* Test Item Value Reference Range Interpretation Comments Globulin (test code = 78077-7) 2.3 2.3-3.5 [facility] CenterAlbumin/Globulin Cvmxq3341-02-30 07:39:00 * Test Item Value Reference Range Interpretation Comments Albumin/Globulin Ratio (test code = 1759-0) 1.5 0.8-2.0 [facility] CenterAlkaline Worwpbvsavg3386-67-37 07:39:00* Test Item Value Reference Range Interpretation Comments Alkaline Phosphatase (test code = 6768-6) 44 40-150 [facility] CenterTriglycerides Xpwav1806-75-20 07:39:00* Test Item Value Reference Range Interpretation Comments Triglycerides Level (test code = 2571-8) 133 0-149 [facility] CenterCholesterol Qpbiy7577-59-52 07:39:00* Test Item Value Reference Range Interpretation Comments Cholesterol Level (test code = 2093-3) 131 0-199 Less than 200 mg/dL Low Fmfi825 - 239 mg/dL Borderline Ivmi695 m g/dl and greater High Risk [facility] CenterLDL Mffnzhfxdhh7687-81-63 07:39:00* Test Item Value Reference Range Interpretation Comments LDL Cholesterol (test code = 2089-1) 80 60-130 [facility] CenterHDL Wvetgnxyhvm9356-70-51 07:39:00* Test Item Value Reference Range Interpretation Comments HDL Cholesterol (test code = 2085-9) 24 40-60 L [facility] CenterCholesterol/HDL Weiui9003-07-73 07:39:00 * Test Item Value Reference Range Interpretation Comments Cholesterol/HDL Ratio (test code = 9830-1) 5.5 3.9-4.7 H [facility] CenterTriglycerides Bgzri5482-69-71 07:39:00* Test Item Value Reference Range Interpretation Comments Triglycerides Level (test code = 2571-8) 133 0-149 [facility] CenterCholesterol Hclov1740-25-99 07:39:00* Test Item Value Reference Range Interpretation Comments Cholesterol Level (test code = 2093-3) 131 0-199 Less than 200 mg/dL Low Piof563 - 239 mg/dL Borderline Done538 m g/dl and greater High Risk [facility] CenterLDL Htvunifzlti1065-38-77 07:39:00* Test Item Value Reference Range Interpretation Comments LDL Cholesterol (test code = 2089-1) 80 60-130 [facility] CenterHDL Yohypsqppde2059-64-84 07:39:00* Test Item Value Reference Range Interpretation Comments HDL Cholesterol (test code = 2085-9) 24 40-60 L [facility] CenterCholesterol/HDL Fcezc0847-96-88 07:39:00 * Test Item Value Reference Range Interpretation Comments Cholesterol/HDL Ratio (test code = 9830-1) 5.5 3.9-4.7 H [facility] CenterTriglycerides Fanvb6857-87-16 07:39:00* Test Item Value Reference Range Interpretation Comments Triglycerides Level (test code = 2571-8) 133 0-149 [facility] CenterCholesterol Cypaa8495-42-78 07:39:00* Test Item Value Reference Range Interpretation Comments Cholesterol Level (test code = 2093-3) 131 0-199 Less than 200 mg/dL Low Ugvi640 - 239 mg/dL Borderline Indd963 m g/dl and greater High Risk [facility] CenterLDL Ztxictjghap0532-85-48 07:39:00* Test Item Value Reference Range Interpretation Comments LDL Cholesterol (test code = 2089-1) 80 60-130 [facility]L Ntjwcizstke4237-08-02 07:39:00* Test Item Value Reference Range Interpretation Comments HDL Cholesterol (test code = 2085-9) 24 40-60 L [facility] CenterCholesterol/HDL Qmdxj7667-97-93 07:39:00 * Test Item Value Reference Range Interpretation Comments Cholesterol/HDL Ratio (test code = 9830-1) 5.5 3.9-4.7 H [facility] CenterCreatine Pkkeat6585-50-76 07:32:00* Test Item Value Reference Range Interpretation Comments Creatine Kinase (test code = 2157-6) 261 30-200 H [facility] CenterWhite Blood Pyqip6680-55-43 07:22:00* Test Item Value Reference Range Interpretation Comments White Blood Count (test code = 6690-2) 8.14 4.8-10.8 [facility] CenterRed Blood Sgahd8366-19-11 07:22:00* Test Item Value Reference Range Interpretation Comments Red Blood Count (test code = 789-8) 3.40 4.3-5.7 L [facility] CenterHemoglobin2018-02-26 07:22:00* Test Item Value Reference Range Interpretation Comments Hemoglobin (test code = 20194-5) 11.7 14.0-18.0 L [facility] CenterHematocrit2018-02-26 07:22:00* Test Item Value Reference Range Interpretation Comments Hematocrit (test code = 4544-3) 31.2 38.2-49.6 L [facility] CenterMean Corpuscular Amdlxy4615-37-09 07:22:00* Test Item Value Reference Range Interpretation Comments Mean Corpuscular Volume (test code = 787-2) 91.8 81-99 [facility] CenterMean Corpuscular Vvsjfqjmgm2951-20-10 07:22:00* Test Item Value Reference Range Interpretation Comments Mean Corpuscular Hemoglobin (test code = 785-6) 34.4 28-32 H [facility] CenterMean Corpuscular Hemoglobin Concent 2017-12-17 07:22:00* Test Item Value Reference Range Interpretation Comments Mean Corpuscular Hemoglobin Concent (test code = 786-4) 37.5 31-35 H [facility] CenterRed Cell Distribution Mledv8854-48-60 07:22:00* Test Item Value Reference Range Interpretation Comments Red Cell Distribution Width (test code = 72128-5) 13.0 11.7 -14.4 [facility] CenterPlatelet Ptpkv7042-56-44 07:22:00* Test Item Value Reference Range Interpretation Comments Platelet Count (test code = 777-3) 310 140-360 [facility] CenterNeutrophils (%) (Auto)2017-12-17 07:22:00 * Test Item Value Reference Range Interpretation Comments Neutrophils (%) (Auto) (test code = 78095-1) 47.5 38.7-80.0 [facility] CenterLymphocytes (%) (Auto)2017-12-17 07:22:00 * Test Item Value Reference Range Interpretation Comments Lymphocytes (%) (Auto) (test code = 736-9) 40.0 18.0-39.1 H [facility] CenterMonocytes (%) (Auto)2017-12-17 07:22:00* Test Item Value Reference Range Interpretation Comments Monocytes (%) (Auto) (test code = 5905-5) 7.9 4.4-11.3 [facility] CenterEosinophils (%) (Auto)2017-12-17 07:22:00 * Test Item Value Reference Range Interpretation Comments Eosinophils (%) (Auto) (test code = 713-8) 3.7 0.0-6.0 [facility] CenterBasophils (%) (Auto)2017-12-17 07:22:00* Test Item Value Reference Range Interpretation Comments Basophils (%) (Auto) (test code = 706-2) 0.7 0.0-1.0 [facility] CenterIM GRANULOCYTES %2017-12-17 07:22:00* Test Item Value Reference Range Interpretation Comments IM GRANULOCYTES % (test code = IM GRANULOCYTES %) 0.2 0.0- 1.0 [facility] CenterNeutrophils # (Auto)2017-12-17 07:22:00* Test Item Value Reference Range Interpretation Comments Neutrophils # (Auto) (test code = 751-8) 3.9 2.1-6.9 [facility] CenterLymphocytes # (Auto)2017-12-17 07:22:00* Test Item Value Reference Range Interpretation Comments Lymphocytes # (Auto) (test code = 83642-5) 3.3 1.0-3.2 H [facility] CenterMonocytes # (Auto)2017-12-17 07:22:00* Test Item Value Reference Range Interpretation Comments Monocytes # (Auto) (test code = 742-7) 0.6 0.2-0.8 [facility] CenterEosinophils # (Auto)2017-12-17 07:22:00* Test Item Value Reference Range Interpretation Comments Eosinophils # (Auto) (test code = 711-2) 0.3 0.0-0.4 [facility] CenterBasophils # (Auto)2017-12-17 07:22:00* Test Item Value Reference Range Interpretation Comments Basophils # (Auto) (test code = 704-7) 0.1 0.0-0.1 [facility] CenterAbsolute Immature Granulocyte (auto 2017-12-17 07:22:00* Test Item Value Reference Range Interpretation Comments Absolute Immature Granulocyte (auto (hiral t code = Absolute Immature Granulocyte (auto) 0.02 0-0.1 [facility] CenterUrine LVB2064-78-99 21:30:00* Test Item Value Reference Range Interpretation Comments Urine WBC (test code = 5821-4) 0-5 0-5 [facility] CenterUrine IBM9090-63-70 21:30:00* Test Item Value Reference Range Interpretation Comments Urine RBC (test code = 09244-2) 0-5 0-5 [facility] CenterUrine Psiyrvds3165-78-65 21:30:00* Test Item Value Reference Range Interpretation Comments Urine Bacteria (test code = 78268-1) RARE NONE [facility] CenterUrine Epithelial Xdtib6068-87-43 21:30:00 * Test Item Value Reference Range Interpretation Comments Urine Epithelial Cells (test code = 85699-8) FEW NONE [facility] CenterUrine TQC0068-36-39 21:30:00* Test Item Value Reference Range Interpretation Comments Urine WBC (test code = 5821-4) 0-5 0-5 [facility] CenterUrine AAT0236-59-73 21:30:00* Test Item Value Reference Range Interpretation Comments Urine RBC (test code = 86957-9) 0-5 0-5 [facility] CenterUrine Qvfuvqta2706-65-31 21:30:00* Test Item Value Reference Range Interpretation Comments Urine Bacteria (test code = 56114-6) RARE NONE [facility] CenterUrine Epithelial Hqooq2621-73-71 21:30:00 * Test Item Value Reference Range Interpretation Comments Urine Epithelial Cells (test code = 23338-0) [facility] [id number] 21:30:00* Test Item Value Reference Range Interpretation Comments Urine WBC (test code = 5821-4) 0-5 0-5 [facility] [id number] 21:30:00* Test Item Value Reference Range Interpretation Comments Urine RBC (test code = 33273-1) 0-5 0-5 [facility] Duegbwdy9745-22-35 21:30:00* Test Item Value Reference Range Interpretation Comments Urine Bacteria (test code = 99187-7) RARE NONE [facility] Epithelial Tcibh0066-43-56 21:30:00 * Test Item Value Reference Range Interpretation Comments Urine Epithelial Cells (test code = 93809-5) FEW NONE [facility] Skshq3862-13-07 21:13:00* Test Item Value Reference Range Interpretation Comments Urine Color (test code = 5778-6) YELLOW YELLOW [facility] Xcpaccr8740-95-45 21:13:00* Test Item Value Reference Range Interpretation Comments Urine Clarity (test code = 85300-0) CLEAR CLEAR [facility] Specific Xwlisoe3941-83-94 21:13:00 * Test Item Value Reference Range Interpretation Comments Urine Specific [place] (test code = 5811-5) 1.015 1.010-1.02 5 [facility] [id number] 21:13:00* Test Item Value Reference Range Interpretation Comments Urine pH (test code = 72983-6) 5 5-7 [facility] Leukocyte Pfjuoasm3436-35-41 21:13:00* Test Item Value Reference Range Interpretation Comments Urine Leukocyte Esterase (test code = 5799-2) NEGATIVE NEGATIVE [facility] Gvkmhgi4704-60-55 21:13:00* Test Item Value Reference Range Interpretation Comments Urine Nitrite (test code = 90959-4) NEGATIVE NEGATIVE [facility] Xnquqef6830-00-95 21:13:00* Test Item Value Reference Range Interpretation Comments Urine Protein (test code = 5804-0) NEGATIVE NEGATIVE [facility] Glucose (UA)2017-12-15 21:13:00* Test Item Value Reference Range Interpretation Comments Urine Glucose (UA) (test code = 2349-9) NEGATIVE NEGATIVE [facility] Azquxpe0029-08-08 21:13:00* Test Item Value Reference Range Interpretation Comments Urine Ketones (test code = 67146-8) NEGATIVE NEGATIVE [facility] Rdjgpzijiurx3558-10-05 21:13:00* Test Item Value Reference Range Interpretation Comments Urine Urobilinogen (test code = 11865-8) 0.2 0.2-1 [facility] Tcstmoifm5573-81-64 21:13:00* Test Item Value Reference Range Interpretation Comments Urine Bilirubin (test code = 1978-6) NEGATIVE NEGATIVE [facility] Xwcjm1405-83-02 21:13:00* Test Item Value Reference Range Interpretation Comments Urine Blood (test code = 59497-6) NEGATIVE NEGATIVE [facility] Qtnna5459-14-54 21:13:00* Test Item Value Reference Range Interpretation Comments Urine Color (test code = 5778-6) YELLOW YELLOW [facility] Jvdhsyn8902-68-27 21:13:00* Test Item Value Reference Range Interpretation Comments Urine Clarity (test code = 76663-4) CLEAR CLEAR [facility] Specific Embalsk9951-06-90 21:13:00 * Test Item Value Reference Range Interpretation Comments Urine Specific [place] (test code = 5811-5) 1.015 1.010-1.02 5 [facility] [id number] 21:13:00* Test Item Value Reference Range Interpretation Comments Urine pH (test code = 01957-8) 5 5-7 [facility] Leukocyte Tjhoerio1454-56-39 21:13:00* Test Item Value Reference Range Interpretation Comments Urine Leukocyte Esterase (test code = 5799-2) NEGATIVE NEGATIVE [facility] Hrjshas9980-70-57 21:13:00* Test Item Value Reference Range Interpretation Comments Urine Nitrite (test code = 46668-0) NEGATIVE NEGATIVE [facility] Fuhqiiy3436-24-27 21:13:00* Test Item Value Reference Range Interpretation Comments Urine Protein (test code = 5804-0) NEGATIVE NEGATIVE [facility] Glucose (UA)2017-12-15 21:13:00* Test Item Value Reference Range Interpretation Comments Urine Glucose (UA) (test code = 2349-9) NEGATIVE NEGATIVE [facility] Rosjvmb1110-33-79 21:13:00* Test Item Value Reference Range Interpretation Comments Urine Ketones (test code = 30337-6) NEGATIVE NEGATIVE [facility] Lpkgsbdyjgto8009-80-87 21:13:00* Test Item Value Reference Range Interpretation Comments Urine Urobilinogen (test code = 42705-6) 0.2 0.2-1 [facility] Gjslpocsu7088-71-47 21:13:00* Test Item Value Reference Range Interpretation Comments Urine Bilirubin (test code = 1978-6) NEGATIVE NEGATIVE [facility] Qctvs6051-99-31 21:13:00* Test Item Value Reference Range Interpretation Comments Urine Blood (test code = 32156-6) NEGATIVE NEGATIVE [facility] Sxidj3355-36-62 21:13:00* Test Item Value Reference Range Interpretation Comments Urine Color (test code = 5778-6) YELLOW YELLOW [facility] Qfffyum2410-16-59 21:13:00* Test Item Value Reference Range Interpretation Comments Urine Clarity (test code = 26367-4) CLEAR CLEAR [facility] Specific Rmjqqbo5581-64-10 21:13:00 * Test Item Value Reference Range Interpretation Comments Urine Specific [place] (test code = 5811-5) 1.015 1.010-1.02 5 [facility] pO9375-29-08 21:13:00* Test Item Value Reference Range Interpretation Comments Urine pH (test code = 12981-2) 5 5-7 [facility] Leukocyte Hpgafdan1342-43-21 21:13:00* Test Item Value Reference Range Interpretation Comments Urine Leukocyte Esterase (test code = 5799-2) NEGATIVE NEGATIVE [facility] Sppkagt9373-08-32 21:13:00* Test Item Value Reference Range Interpretation Comments Urine Nitrite (test code = 45115-2) NEGATIVE NEGATIVE [facility] Yupdnpt0360-25-29 21:13:00* Test Item Value Reference Range Interpretation Comments Urine Protein (test code = 5804-0) NEGATIVE NEGATIVE [facility] Glucose (UA)2017-12-15 21:13:00* Test Item Value Reference Range Interpretation Comments Urine Glucose (UA) (test code = 2349-9) NEGATIVE NEGATIVE [facility] Dgbqoml5715-82-89 21:13:00* Test Item Value Reference Range Interpretation Comments Urine Ketones (test code = 59340-8) NEGATIVE NEGATIVE [facility] Lbjfzddjvqld2645-03-14 21:13:00* Test Item Value Reference Range Interpretation Comments Urine Urobilinogen (test code = 23221-4) 0.2 0.2-1 [facility] Woyvlklps5679-85-91 21:13:00* Test Item Value Reference Range Interpretation Comments Urine Bilirubin (test code = 1978-6) NEGATIVE NEGATIVE [facility] Sshnk7990-11-14 21:13:00* Test Item Value Reference Range Interpretation Comments Urine Blood (test code = 21054-6) NEGATIVE NEGATIVE [facility]th[facility] Jmxj1277-91-72 20:29:00* Test Item Value Reference Range Interpretation Comments Prothrombin Time (test code = 5902-2) 13.1 11.9-14.5 [facility] Center[facility]th[facility] Time International Ratio 2017-12-15 20:29:00* Test Item Value Reference Range Interpretation Comments Prothromb Time International Ratio (test code = 6301-6) 1.07 Oral Anticoagulant Therapy INR Values:1. Low Intensity Therapy 1.5 - 2.02 . Moderate Intensity Therapy 2.0 - 3.03. High Intensity Therapy(1) 2.5 - 3. 54. High Intensity Therapy(2) 3.0 - 4.05. Panic Value INR > 5.0 [facility] CenterAct[facility] Partial Thromboplast Time 2017-12-15 20:29:00* Test Item Value Reference Range Interpretation Comments Activated Partial Thromboplast Time (test code = 17125-9) 29.2 23.8-35.5 [facility] [address] [place] [address] Patient Name: JOSEPH LONGO MR #: [id number] : 1950 Age/Sex: 67/M Req #: [id number] Adm Physician: Ordered by: TRAE LÓPEZ MD Report #: [id number] Location: ER Room/Bed: Procedure: [id number] CT/CT CHEST W Exam Ervin e: 02/13/18 [...] TO: TRAE LÓPEZ MD CHEST SINGLE (PORTABLE) [place] [address] Patient Name: JOSEPH LONGO MR #: [id number] : 1950 Age/Sex: 67/M Req #: [id number] Adm Physician: Ordered by: TRAE LÓPEZ MD Report #: [id number] Location: [facility] oom/Bed: Procedure: [id number] DX/CHEST SINGLE (PORTAB LE) Exam Date: 02/13/18 [...] TRAE LÓPEZ MD CT CERVICAL SPINE WO [place] [address] Patient Name: JOSEPH LONGO MR #: [id number] : 1950 Age/Sex: 67/M Req #: [id number] Adm Physician: Ordered by: YUNG CHIRINOS MD Report #: [id number] Location: ER Room/Bed: Procedure: [id number] CT/CT CERVICAL SPINE WO Exam Date: 12/15/17 [...] FERREIRA MD on 12/16/172237 Transcribed By: GILDA Gilbert on 12/16/172237 COPY TO: YUNG CHIRINOS MD CT BRAIN WO [place] [address] Patient Name: JOSEPH LONGO MR #: [id number] : 1950 Age/Sex: 67/M Req #: [id number] Adm Physician: Ordered by: YUNG CHIRINOS MD Report #: [id number] Location: ER Room/Bed : Procedure: [id number] CT/CT BRAIN WO Exam Date: Exam Time: [...] ally Signed By: RONNIE FERREIRA MD on 12/16/172237 Transcribed By: RADHA on 11/23 COPY TO: YUNG CHIRINOS MD CT CHEST W [place] [address] Patient Name: JOSEPH LONGO MR #: [id number] : 1950 Age/Sex: 67/M Req #: [id number] Adm Physician: Ordered by: YUNG CHIRINOS MD Report #: [id number] Location: ER Room/Bed: Procedure: [id number] CT/CT CHEST W Exam Date: 11/23 02/06 [...] ally Signed By: PATRIC EWING MD on 12/16/17 0002 Transcribed By: GILDA Gilbert on 12/16/17 0002 COPY TO: YUNG CHIRINOS MD CHEST 2 VIEWS [place] [address] Patient Name: JOSEPH LONGO MR #: [id number] : 1950 Age/Sex: 67/M Req #: [id number] Adm Physician: Ordered by: YUNG CHIRINOS MD Report #: [id number] Location: Room/Bed : Procedure: [id number] DX/CHEST 2 VIEWS Exam Date: 0 12/15/17 Exam Time: 1949 REPORT STATUS: Signed [...]
[2020-05-28 12:03] LABS: ALANINE AMINOTRANSFERASE 31 IU/L (0-55); ALBUMIN 3.4 g/dL (3.5-5.0); ALBUMIN/GLOBULIN RATIO 0.9 (0.8-2.0); ALKALINE PHOSPHATASE 131 IU/L (40-150); ANION GAP 13.8 mmol/L (8-16); BLOOD UREA NITROGEN 16 mg/dL (7-26); BUN/CREATININE RATIO 19 (6-25); CALCIUM 8.7 mg/dL (8.4-10.2); CARBON DIOXIDE 21 mmol/L (22-29); CHLORIDE 103 mmol/L (98-107); CREATINE KINASE 54 IU/L (30-200); CREATININE, SERUM 0.84 mg/dL (0.72-1.25); EST GLOMERULAR FILTRATION RATE > 60 ML/MIN (60-); GLUCOSE 102 mg/dL (74-118); POTASSIUM 4.8 mmol/L (3.5-5.1); SODIUM 133 mmol/L (136-145)
[2020-05-28 15:27] LABS: BILIRUBIN,URINE NEGATIVE (NEGATIVE); CLARITY,URINE SL CLOUDY (CLEAR); COLOR,URINE STRAW (YELLOW); KETONES,URINE NEGATIVE (NEGATIVE); LEUKOCYTE ESTERASE ,URINE NEGATIVE (NEGATIVE); NITRITE,URINE NEGATIVE (NEGATIVE); PROTEIN,URINE DIPSTICK 1+ (NEGATIVE); URINE UROBILINOGEN 1 mg/dL (0.2 - 1)
[2020-05-28 15:41] LABS: BACTERIA,URINE RARE /HPF
[2020-05-28] MEDS ORDERED: PIPER-TAZ 3.375 GM 50 ML IV STA (16:06)
--- OUTSIDE RECORDS SUMMARY | 2020-05-28 16:19 | XMS REPORT | Continuity of Care Document ---
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 [facility]ounderum or plasma calcium measurement (mass/volume)2020-03-24 05:50:00* Test Item Value Reference Range Interpretation Comments Calcium Level (test code = 26254-3) 8.9 8.4-10.2 [facility] Mounderum or plasma magnesium measurement (mass/volume)2020-03-24 05:50:00* Test Item Value Reference Range Interpretation Comments Magnesium Level (test code = 44839-8) 1.9 1.3-2.1 [facility] Mounderum or plasma total bilirubin measurement (mass/volume)2020-03-24 05:50:00* Test Item Value Reference Range Interpretation Comments Total Bilirubin (test code = 1975-2) 0.5 0.2-1.2 [facility] BrenhamFluoroscopic procedure less than one hour uaxkpzsu3228-81-53 05:50:00* Test Item Value Reference Range Interpretation Comments Aspartate Amino Transf (AST/SGOT) (test code = Aspartate Amino Transf (AST/SGOT)) 14 5-34 [facility]ounderum or plasma alanine aminotransferase measurement (enzymatic activity/volume)2020-03-24 05:50:00* Test Item Value Reference Range Interpretation Comments Alanine Aminotransferase (ALT/SGPT) (test code = 1742-6) 13 0-55 [facility] Mounderum or plasma protein measurement (mass/volume)2020-03-24 05:50:00* Test Item Value Reference Range Interpretation Comments Total Protein (test code = 2885-2) 6.6 6.5-8.1 [facility]ounderum or plasma albumin measurement (mass/volume)2020-03-24 05:50:00* Test Item Value Reference Range Interpretation Comments Albumin (test code = 1751-7) 3.4 3.5-5.0 [facility] BrenhamPlasma globulin measurement (mass/volume) 2020-03-24 05:50:00* Test Item Value Reference Range Interpretation Comments Globulin (test code = 65774-9) 3.2 2.3-3.5 [facility] Mounderum or plasma albumin/globulin mass gesvw6384-88-83 05:50:00* Test Item Value Reference Range Interpretation Comments Albumin/Globulin Ratio (test code = 1759-0) 1.1 0.8-2.0 [facility]ounderum or plasma alkaline phosphatase measurement (enzymatic activity/volume)2020-03-24 05:50:00* Test Item Value Reference Range Interpretation Comments Alkaline Phosphatase (test code = 6768-6) 74 40-150 [facility] BrenhamFluoroscopic procedure less than one hour kknugdqh2496-07-37 05:20:00* Test Item Value Reference Range Interpretation Comments Hemoglobin A1c Percent (test code = Hemoglobin A1c Percent) 4.6 4.0-7.0 [facility]ounderum or plasma triglyceride measurement (mass/volume)2020-03-23 05:20:00* Test Item Value Reference Range Interpretation Comments Triglycerides Level (test code = 2571-8) 135 0-149 [facility]ounderum or plasma cholesterol measurement (mass/volume)2020-03-23 05:20:00* Test Item Value Reference Range Interpretation Comments Cholesterol Level (test code = 2093-3) 69 0-199 Less than 200 mg/dL Low Ccdf291 - 239 mg/dL Borderline Gczw865 m g/dl and greater High Risk [facility]ounderum or plasma cholesterol in LDL measurement (mass/volume) 2020-03-23 05:20:00* Test Item Value Reference Range Interpretation Comments LDL Cholesterol (test code = 2089-1) 17 60-130 [facility]ounderum or plasma cholesterol in HDL measurement (mass/volume)2020-03-23 05:20:00* Test Item Value Reference Range Interpretation Comments HDL Cholesterol (test code = 2085-9) 25 40-60 [facility]ounderum or plasma total cholesterol/cholesterol in HDL mass cbqkz3475-05-46 05:20:00* Test Item Value Reference Range Interpretation Comments Cholesterol/HDL Ratio (test code = 9830-1) 2.8 3.9-4.7 [facility] Mounderum or plasma creatine kinase measurement (enzymatic activity/volume)2020-03-23 05:20:00* Test Item Value Reference Range Interpretation Comments Creatine Kinase (test code = 2157-6) 100 30-200 [facility] Mounderum or plasma creatine kinase MB measurement (mass/volume)2020-03-23 05:20:00* Test Item Value Reference Range Interpretation Comments Creatine Kinase MB (test code = 73308-3) 2.40 0-5.0 [facility] BrenhamTroponin I measurement by highly sensitive enzyme ljhyeuvpjts8384-70-02 05:20:00* Test Item Value Reference Range Interpretation Comments Troponin I (test code = 94675-9) 0.003 0-0.300 [facility] Mounderum or plasma thyrotropin measurement by detection limit <= 0.005 miu/l (units/volume)2020-03-23 05:20:00* Test Item Value Reference Range Interpretation Comments Thyroid Stimulating Hormone (TSH) (test code = 77345-8) 1.127 0.350-4.940 [facility] Mounderum or plasma carcinoembryonic antigen measurement (mass/volume)2020-03-23 05:20:00* Test Item Value Reference Range Interpretation Comments Carcinoembryonic Antigen (test code = 2039-6) 1.3 0.0-4.7 Nonsmokers <3.9 Smokers <5.6[employer] Electrochemiluminescence Immunoassay(ECLIA)Values obtained with different assay methods or kitscannot be used interchangeably. Results cannot beinterpreted as absolute evidence of the presence orabsence of malignant disease.Performed at: [facility] [id number] Director: Greyson Phoenix MD, Phone: [phone] Scott & White Medical Center – BrenhamCT CHEST [id number] 03:21:00 [facility] [address] [place] [address] Patient Name: JOSEPH LONGO MR #: [id number] : 1950 Age/Sex: 69/M Req #: [id number] Adm Physician: Ordered by: JUNIOR MARCUM rt #: [id number] Location: Room/Be d: Procedure: [id number] CT/CT CHEST W Exam Date: 03/22/20 Exam [...] DO Fluoroscopic procedure less than one hour zuijmdeh9932-13-15 02:58:00* Test Item Value Reference Range Interpretation [...] under 564(g) of the ACT.Testing performed by [facility] [place], [place] [address]TRLBaylor Scott & White Medical Center – BrenhamFluoroscopic procedure less than one hour duration 2020-03-22 02:50:00* Test Item Value Reference Range Interpretation Comments Lactic Acid Level (test code = Lactic Acid Level) 1.2 0.5- 2.0 [facility] BrenhamBlood zeijyns9450-14-58 02:50:00* Test Item Value Reference Range Interpretation Comments Blood Culture (test code = 91602879) NO GROWTH AFTER 48 HOURS [facility] BrenhamCapillary blood glucose measurement by glucometer (mass/volume)2020-03-22 00:40:00* Test Item Value Reference Range Interpretation Comments Bedside Glucose (test code = 63278-0) 161 70-120 Meter ID: [id number] Scott & White Medical Center – BrenhamBNP Bld-mCnc 2020-03-22 00:35:00* Test Item Value Reference Range Interpretation Comments B-Type Natriuretic Peptide (test code = 68741-7) 17.4 0-100 [facility]ounderum or plasma lipase measurement (enzymatic activity/volume)2020-03-22 00:35:00* Test Item Value Reference Range Interpretation Comments Lipase (test code = 3040-3) 61 8-78 [facility] BrenhamABDOMEN-1VIEW (KUB)2019-06-02 10:49:00 [facility] [address] [address] Patient Name: JOSEPH LONGO MR #: [id number] : [birth year] Age/Sex: 69/M Req #: [id number] Adm Physician: Ordered by: GEETA GHOTRA MD Report #: [id number] Location: [facility] Room/Bed: Procedure: DX/ABD OMEN-1VIEW (KUB) Exam Date: [...] TO: GEETA GHOTRA MD CT CERVICAL SPINE IY6246-64-04 17:52:[address] [address] Patient Name: JOSEPH LONGO MR #: [id number] : 1950 Age/Sex: 68/M Req #: [id number] Adm Physician: Ordered by: GAURAV CAMARILLO MD [...] CAMARILLO MD CT BRAIN WO 2018-04-17 17:52:00 [address] [place] [address] Patient Name: JOSEPH LONGO MR #: [id number] : 1950 Age/Sex: 68/M Req #: [id number] Adm Physician: Ordered by: GAURAV CAMARILLO MD Report #: [id number] Location: ER Room/Bed: Procedure: [id number] CT/CT BRAIN WO Exam Date: 04/17/18 Exam [...] Findings: Head CT: Scalp/skull: Left parietal scalp traice letty without underlying fracture. Unchanged nonaggressive-appearing 6 [...] GAURAV CAMARILLO MD CHEST SINGLE (PORTABLE)2018-04-17 17:45:[address] [address] Patient Name: JOSEPH LONGO MR #: [id number] : 1950 Age/Sex: 68/M Req #: [id number] Adm Physician: Ordered by: GAURAV CAMARILLO MD Report #: [id number] Location: ER Room/Bed: Procedure: [id number] DX/CHEST SINGLE (PORTABLE) Exam Date: 04/17/18 Exam [...] ROBERT VALLE MD on 04/17/181744 Transcribed By: [facility] on 04/17/181744 COPY TO: GAURAV CAMARILLO MD SHOULDER LEFT HUGFSIRD5486-33-74 17:42:00 [address] [place] [address] Patient Name: JOSEPH LONGO MR #: [id number] : 1950 Age/Sex: 68/M Req #: [id number] Adm Physician: Ordered by: GAURAV CAMARILLO MD Report #: [id number] Location: ER Room/Bed: Procedure: [id number] DX/SHOULDER LEFT COMPLETE Exam Date: 04/17/18 Exam [...] at 17:42 Dictated By: ROBERT VALLE MD Elect ronically Signed By: ROBERT VALLE MD on 04/17/181741 Transcribed By: TELLO on 04/17/181741 COPY TO: GAURAV CAMARILLO MD Creatine Kinase MB 2018-04-17 17:35:00* Test Item Value Reference Range Interpretation Comments Creatine Kinase MB (test code = 28183-3) 4.20 0-5.0 [facility] BrenhamTroponin A3753-18-03 17:35:00* Test Item Value Reference Range Interpretation Comments Troponin I (test code = JZB8535) -0.001 0-0.300 [facility] Moundodium Rqbey6905-94-29 17:29:00* Test Item Value Reference Range Interpretation Comments Sodium Level (test code = 2951-2) 140 136-145 [facility] BrenhamPotassium Fsaed8189-08-44 17:29:00* Test Item Value Reference Range Interpretation Comments Potassium Level (test code = 2823-3) 4.4 3.5-5.1 [facility] BrenhamChloride Hmkpy4457-86-03 17:29:00* Test Item Value Reference Range Interpretation Comments Chloride Level (test code = 2075-0) 107 98-107 [facility] BrenhamCarbon Dioxide Suuuk6105-35-94 17:29:00* Test Item Value Reference Range Interpretation Comments Carbon Dioxide Level (test code = 2028-9) 20 22-29 L [facility] BrenhamAnion Hlm3067-66-39 17:29:00* Test Item Value Reference Range Interpretation Comments Anion Gap (test code = 03345-8) 17.4 8-16 H [facility] BrenhamBlood Urea Krgmqccr2856-66-65 17:29:00* Test Item Value Reference Range Interpretation Comments Blood Urea Nitrogen (test code = 3094-0) 22 7-26 [facility] BrenhamCreatinine2018-06-27 17:29:00* Test Item Value Reference Range Interpretation Comments Creatinine (test code = 2160-0) 1.20 0.72-1.25 [facility] BrenhamBUN/Creatinine Jqwyl4423-25-72 17:29:00* Test Item Value Reference Range Interpretation Comments BUN/Creatinine Ratio (test code = 3097-3) 18 6-25 [facility] BrenhamEstimat Glomerular Filtration Rate 2018-04-17 17:29:00* Test Item Value Reference Range Interpretation Comments Estimat Glomerular Filtration Rate (test code = 49387-6) 60 >60 Ranges were taken from the National Kidney Disease Education Program and the [facility] Kid[facility] Foundation literature.Reference ranges:60 or greater: Fdtrqh30-23 ( for 3 consecutive months): Chronic kidney disease 15 or less: Kidney failureBaylor Scott & White Medical Center – BrenhamGlucose Kwpdd5298-49-80 17:29:00* Test Item Value Reference Range Interpretation Comments Glucose Level (test code = BEB0599) 103 74-118 [facility] BrenhamCalcium Vbcdz6052-62-62 17:29:00* Test Item Value Reference Range Interpretation Comments Calcium Level (test code = 96280-4) 9.8 8.4-10.2 [facility] BrenhamTotal Vgmmsytkh4041-07-88 17:29:00* Test Item Value Reference Range Interpretation Comments Total Bilirubin (test code = 1975-2) 0.5 0.2-1.2 [facility] BrenhamAspartate Amino Transf (AST/SGOT) 2018-04-17 17:29:00* Test Item Value Reference Range Interpretation Comments Aspartate Amino Transf (AST/SGOT) (test code = Aspartate Amino Transf (AST/SGOT)) 55 5-34 H [facility] BrenhamAlanine Aminotransferase (ALT/SGPT) 2018-04-17 17:29:00* Test Item Value Reference Range Interpretation Comments Alanine Aminotransferase (ALT/SGPT) (test code = 1742-6) 68 0-55 H [facility] BrenhamTotal Aeknatz8390-36-34 17:29:00* Test Item Value Reference Range Interpretation Comments Total Protein (test code = 2885-2) 7.2 6.5-8.1 [facility] BrenhamAlbumin2018-06-27 17:29:00* Test Item Value Reference Range Interpretation Comments Albumin (test code = 1751-7) 4.0 3.5-5.0 [facility] BrenhamGlobulin2018-06-27 17:29:00* Test Item Value Reference Range Interpretation Comments Globulin (test code = 81860-1) 3.2 2.3-3.5 [facility] BrenhamAlbumin/Globulin Zyqdr6094-83-67 17:29:00 * Test Item Value Reference Range Interpretation Comments Albumin/Globulin Ratio (test code = 1759-0) 1.3 0.8-2.0 [facility] BrenhamAlkaline Wkwhrzwnoll5638-11-95 17:29:00* Test Item Value Reference Range Interpretation Comments Alkaline Phosphatase (test code = 6768-6) 54 40-150 [facility] BrenhamCreatine Wzhsep6467-18-61 17:29:00* Test Item Value Reference Range Interpretation Comments Creatine Kinase (test code = 2157-6) 522 30-200 H [facility] BrenhamWhite Blood Ekyrw6445-32-10 16:57:00* Test Item Value Reference Range Interpretation Comments White Blood Count (test code = 6690-2) 9.73 4.8-10.8 [facility] BrenhamRed Blood Gvbzm8426-71-83 16:57:00* Test Item Value Reference Range Interpretation Comments Red Blood Count (test code = 789-8) 4.06 4.3-5.7 L [facility] BrenhamHemoglobin2018-06-27 16:57:00* Test Item Value Reference Range Interpretation Comments Hemoglobin (test code = 77720-2) 13.6 14.0-18.0 L [facility] BrenhamHematocrit2018-06-27 16:57:00* Test Item Value Reference Range Interpretation Comments Hematocrit (test code = 4544-3) 37.3 38.2-49.6 L [facility] BrenhamMean Corpuscular Oxqadm4312-09-74 16:57:00* Test Item Value Reference Range Interpretation Comments Mean Corpuscular Volume (test code = 787-2) 91.9 81-99 [facility] BrenhamMean Corpuscular Efqrkdiatw4800-31-06 16:57:00* Test Item Value Reference Range Interpretation Comments Mean Corpuscular Hemoglobin (test code = 785-6) 33.5 28-32 H [facility] BrenhamMean Corpuscular Hemoglobin Concent 2018-04-17 16:57:00* Test Item Value Reference Range Interpretation Comments Mean Corpuscular Hemoglobin Concent (test code = 786-4) 36.5 31-35 H [facility] BrenhamRed Cell Distribution Jblps4833-30-77 16:57:00* Test Item Value Reference Range Interpretation Comments Red Cell Distribution Width (test code = 99463-3) 13.1 11.7 -14.4 [facility] BrenhamPlatelet Gwnti8537-75-49 16:57:00* Test Item Value Reference Range Interpretation Comments Platelet Count (test code = 777-3) 335 140-360 [facility] BrenhamNeutrophils (%) (Auto)2018-04-17 16:57:00 * Test Item Value Reference Range Interpretation Comments Neutrophils (%) (Auto) (test code = 99313-5) 48.9 38.7-80.0 [facility] BrenhamLymphocytes (%) (Auto)2018-04-17 16:57:00 * Test Item Value Reference Range Interpretation Comments Lymphocytes (%) (Auto) (test code = 736-9) 40.8 18.0-39.1 H [facility] BrenhamMonocytes (%) (Auto)2018-04-17 16:57:00* Test Item Value Reference Range Interpretation Comments Monocytes (%) (Auto) (test code = 5905-5) 7.5 4.4-11.3 [facility] BrenhamEosinophils (%) (Auto)2018-04-17 16:57:00 * Test Item Value Reference Range Interpretation Comments Eosinophils (%) (Auto) (test code = 713-8) 2.0 0.0-6.0 [facility] BrenhamBasophils (%) (Auto)2018-04-17 16:57:00* Test Item Value Reference Range Interpretation Comments Basophils (%) (Auto) (test code = 706-2) 0.4 0.0-1.0 [facility] BrenhamIM GRANULOCYTES %2018-04-17 16:57:00* Test Item Value Reference Range Interpretation Comments IM GRANULOCYTES % (test code = IM GRANULOCYTES %) 0.4 0.0- 1.0 [facility] BrenhamNeutrophils # (Auto)2018-04-17 16:57:00* Test Item Value Reference Range Interpretation Comments Neutrophils # (Auto) (test code = 751-8) 4.8 2.1-6.9 [facility] BrenhamLymphocytes # (Auto)2018-04-17 16:57:00* Test Item Value Reference Range Interpretation Comments Lymphocytes # (Auto) (test code = 52380-5) 4.0 1.0-3.2 H [facility] BrenhamMonocytes # (Auto)2018-04-17 16:57:00* Test Item Value Reference Range Interpretation Comments Monocytes # (Auto) (test code = 742-7) 0.7 0.2-0.8 [facility]hamEosinophils # (Auto)2018-04-17 16:57:00* Test Item Value Reference Range Interpretation Comments Eosinophils # (Auto) (test code = 711-2) 0.2 0.0-0.4 [facility] BrenhamBasophils # (Auto)2018-04-17 16:57:00* Test Item Value Reference Range Interpretation Comments Basophils # (Auto) (test code = 704-7) 0.0 0.0-0.1 [facility] BrenhamAbsolute Immature Granulocyte (auto 2018-04-17 16:57:00* Test Item Value Reference Range Interpretation Comments Absolute Immature Granulocyte (auto (hiral t code = Absolute Immature Granulocyte (auto) 0.04 0-0.1 [facility] BrenhamELECTROLYTES2018-05-23 09:49:009.7 [facility] BavcukxMPLKVNESOIDE9818-78-49 09:49:0053[facility] HermannELECTROLYTES 2018-03-13 09:49:38655Kujgtbjy TuznjtpUKZXIDUAJABJ7588-03-02 09:49:0024[facility] PpcjdbhOQSPAJUSEVUW3716-31-56 09:49:003.7[facility] ZplshznEZPWUQKTYZMR5246-35-01 09:49:98464Xwmuhnlo DoistfpYFKXKHOCDMIR5626-99-28 09:49:007.8[facility] KBBFNGYHIZNV3204-77-35 09:49:14057Djxbklre XthydpnICDPSEEKAOHM6985-56-65 09:49:0016[facility] BvqlasrZUWOBFBITMCI2692-43-94 09:49:001.07[facility] IAAMXLKOML5099-55-51 09:49:91810Biisjsfm ZuxsntmGUZKKOXOSU2788-96-65 09:49:00 13.1[facility] GclcybrVOSFQFDSCQ3606-79-79 09:49:007.8[facility] HermannHEMATOLOGY 2018-03-13 09:49:0036.0[facility] EftifhqZUFIQXVVZA9280-69-89 09:49:0095.3[facility] AmcrzxuDRVIGOQLSK7291-70-58 09:49:00* Test Item Value Reference Range Interpretation Comments MCH (test code = MCH) 34.3 pg 27.0-31.0 [facility] RcnsaihFJTAMOICDB8208-68-33 09:49:0011.4[facility] HermannHEMATOLOGY 2018-03-13 09:49:0013.3[facility] YejiwsfPNCZCDNKXX5777-81-59 09:49:0036.9[facility] QzakeszNOTLCDDLIN3575-26-17 09:49:003.87[facility] EuzyesbIACEHASDXF2625-90-98 09:49:00* Test Item Value Reference Range Interpretation Comments PTT (test code = PTT) 30.7 s 22.9-35.8 [facility] LakewayJdgcjyfIULWCGJPFL1009-19-31 09:49:00* Test Item Value Reference Range Interpretation Comments PT (test code = PT) 12.8 s 12.0-14.7 [facility] LakewayIpfbbvjZLNSSCXLEM9894-35-78 09:49:00* Test Item Value Reference Range Interpretation Comments INR (test code = INR) 0.96 1 0.85-1.17 [facility] LakewayZuggfidXXWIYRVNRB8110-77-90 19:05:28* Test Item Value Reference Range Interpretation Comments PTT (test code = PTT) 164.1 s 22.9-35.8 [facility]annCHEM XVSWT3150-72-23 12:06:0062[facility]annCHEM PANEL 2018-03-12 12:06:006.4[facility]annCHEM WQRLK0342-09-99 12:06:0011.0[facility]annCHEM MCXUN0462-60-57 12:06:00* Test Item Value Reference Range Interpretation Comments B/C Ratio (test code = B/C Ratio) 17 1 6-25 [facility]annCHEM DVLAA4341-10-51 12:06:008.1[facility]annCHEM PANEL 2018-03-12 12:06:000.95[facility]annCHEM YFJZD7698-41-31 12:06:42971Tmfosthq HermannCHEM WMLBU7984-20-21 12:06:004.0[facility]annCHEM AWFOG6652-36-77 12:06:86160Hgrluezm HermannCHEM VDXVC4377-14-69 12:06:0026[facility]annCHEM NOYHF0353-74-61 12:06:0016[facility]annCHEM AHAAA3787-82-06 12:06:63907 [facility]annCHEM QILFF7691-90-06 12:06:000.7[facility] HermannCHEM PANEL 2018-03-12 12:06:0054[facility]annCHEM HDDXV3280-58-82 12:06:0031[facility]annCHEM QUBRF7251-34-90 12:06:003.3[facility]annCHEM RJWFN9913-78-60 12:06:003.1[facility]annCHEM MKCDE2012-20-18 12:06:00* Test Item Value Reference Range Interpretation Comments A/G Ratio (test code = A/G Ratio) 1.1 1 0.7-1.6 [facility]annCHEM CPLCZ8914-29-07 12:06:0049[facility]annHEMATOLOGY 2018-03-12 12:06:000.5[facility] NyvwxzbTZUJZOGZVI7471-37-54 12:06:004.5[facility] BpthsdmAEGWRCAFBD6356-36-80 12:06:006.2[facility] AqntlmjFDXCVFEUXA7614-61-65 12:06:008.5[facility] VgjvazsKZRJHCQGRK3369-48-15 12:06:001.5[facility] UWQXSCUNKW5193-77-51 12:06:0037.5[facility] VnbpofmKYUZTOHAWV0233-69-77 12:06:00 52.0[facility] FjwigenYYKXNALEDG5163-20-31 12:06:000.2[facility] HermannHEMATOLOGY 2018-03-12 12:06:001.0[facility] PtiecicIOORJDNDAA0237-72-68 12:06:000.1[facility] CvdixilYMXFZCHSNQ5288-51-80 12:06:00* Test Item Value Reference Range Interpretation Comments INR (test code = INR) 1.13 1 0.85-1.17 [facility] FmbqqwrWQKMSUGNPO2720-41-73 12:06:00* Test Item Value Reference Range Interpretation Comments PT (test code = PT) 14.5 s 12.0-14.7 [facility] UbnttvaGRPJMTSAYA8070-18-41 12:06:00* Test Item Value Reference Range Interpretation Comments PTT (test code = PTT) 47.1 s 22.9-35.8 [facility] QeaxzytZSXSJQZFEP0570-61-64 12:06:007.8[facility] HermannHEMATOLOGY 2018-03-12 12:06:63695Bkqzqete PthaygrEKTYXPODHW7397-22-15 12:06:0094.2[facility] MzkzweiSDJBWAWPVA0003-54-67 12:06:00* Test Item Value Reference Range Interpretation Comments MCH (test code = MCH) 34.5 pg 27.0-31.0 [facility] DgatzbuCAUBDRBNCJ6071-07-56 12:06:0013.3[facility] HermannHEMATOLOGY 2018-03-12 12:06:0036.7[facility] OcagslxDHWUSOVRST7316-72-70 12:06:0038.8[facility] IbsiqrnMPDBDRMSHJ5856-93-69 12:06:004.12[facility] XitdyitITVZRRDUPW9920-03-72 12:06:0014.2[facility] KtucrflZGLOIJDWFG5364-30-72 12:06:0012.0[facility] SJBTLLYTPU5407-30-21 05:20:00* Test Item Value Reference Range Interpretation Comments INR (test code = INR) 1.09 1 0.85-1.17 [facility] RssoppwPYUFGOGKYD2433-91-96 05:20:00* Test Item Value Reference Range Interpretation Comments PT (test code = PT) 14.1 s 12.0-14.7 [facility] LoahnabCBDFXJZAKK8629-15-02 01:24:000.1[facility] HermannHEMATOLOGY 2018-03-12 01:24:005.8[facility] WrkhvvlIBCYJXSCNV6408-45-98 01:24:000.3[facility] RbxfocrZNPFMVUDKY0541-21-15 01:24:002.4[facility] RjdrfecWRCLXBNZQW5871-66-84 01:24:000.9[facility] XjqowjrXSWXEGWKNZ5877-42-70 01:24:004.9[facility] OGFNJHKBAP9190-35-60 01:24:009.3[facility] RsyiclhEAMAFZLZZV7640-79-48 01:24:001.1 [facility] OkrngncVXLQBLHLSV2745-79-02 01:24:0039.9[facility] HermannHEMATOLOGY 2018-03-12 01:24:0047.5[facility] CwazmfhHLVDKAQZNO5564-60-92 01:24:0013.4[facility] BhlsofoDFKFHYEZGX3091-81-13 01:24:21185Ijivjson JthxrbpAXQWBNMAEY9198-50-67 01:24:007.8[facility] AuqbypyXNPYFHJAWW8725-63-55 01:24:0014.9[facility] BRHPVPUAFE8454-30-61 01:24:00* Test Item Value Reference Range Interpretation Comments MCH (test code = MCH) 34.2 pg 27.0-31.0 [facility] PvobbozBDUUNSKDXC7439-30-47 01:24:0035.7[facility] HermannHEMATOLOGY 2018-03-12 01:24:004.35[facility] SifmlfgBXQDRIPVRA5228-49-09 01:24:0096.0[facility] LceqrdwVXUFPUCXJZ2927-25-44 01:24:0012.2[facility] IxummyjYIRIUOPCUZ8103-64-89 01:24:0041.8[facility] HermannCHEM BWZIY9919-22-64 17:39:0058[facility] HermannCHEM UPNPG8035-05-61 17:39:0013[facility] HermannCHEM KDCHH7752-99-87 17:39:0087 [facility]annCHEM ERZYR5874-41-21 17:39:0060[facility] HermannCHEM PANEL 2018-03-11 17:39:001.00[facility] HermannCHEM TAASX2872-48-97 17:39:94788Eetyhmcl HermannCHEM HOZUS8582-55-55 17:39:28923Pmhhdgov HermannCHEM NDLJN2196-99-69 17:39:0024[facility] HermannCHEM WOWCY7082-39-11 17:39:007.0[facility]annCHEM NUYRB9499-49-23 17:39:008.9[facility] HermannCHEM ZANVP5543-32-37 17:39:004.6 [facility]annCHEM URGYA2686-70-76 17:39:0028[facility] HermannCHEM PANEL 2018-03-11 17:39:0051[facility] HermannCHEM VPATX9763-57-93 17:39:003.9[facility] HermannCHEM PCOSI6862-67-81 17:39:000.3[facility] HermannCHEM MIWOC1740-56-50 17:39:00* Test Item Value Reference Range Interpretation Comments A/G Ratio (test code = A/G Ratio) 1.3 1 0.7-1.6 [facility]annCHEM NHBWQ5159-30-11 17:39:003.1[facility] HermannCHEM PANEL 2018-03-11 17:39:00* Test Item Value Reference Range Interpretation Comments B/C Ratio (test code = B/C Ratio) 13 1 6-25 [facility]annCHEM HKCIS2927-54-17 17:39:0013.6[facility] HermannHEMATOLOGY 2018-03-11 17:39:000.1[facility] JpbdrrxTNXCQQJLZV0211-33-32 17:39:001.0[facility] WfrcnbrATHXSOAGQK3932-58-73 17:39:000.3[facility] NwepsouZKXGORBPWO1557-87-65 17:39:004.3[facility] MjhbypfJDHKNWSWCZ5551-90-95 17:39:002.8[facility] AZPGNWVDLI4451-58-25 17:39:001.0[facility] PedfleoJZZONVLNJZ2171-02-69 17:39:005.8 [facility] GkiefnuXOLLIVYDBX0807-45-08 17:39:0050.1[facility] HermannHEMATOLOGY 2018-03-11 17:39:0037.1[facility] BuxgikaGEPWZDIRLT0501-59-42 17:39:009.0[facility] NymwtvoBRLBCV3370-97-94 17:39:00* Test Item Value Reference Range Interpretation Comments CHD Risk (test code = CHD Risk) 6.91 1 3.90-5.80 [facility] JeskbnkHWBBET3462-05-66 17:39:0073[facility] DnnygzaYDISRO1223-87-97 17:39:00* Test Item Value Reference Range Interpretation Comments VLDL (test code = VLDL) 63 1 [facility] UkmgefyACPGMU2278-25-38 17:39:0023[facility] MflmxwzKHHXES9732-35-89 17:39:08925Coepnqvo BkwcnewQTMWAK7575-40-53 17:39:05106Gdlhpfet HermannWhite Blood Heoor7571-08-59 21:48:00* Test Item Value Reference Range Interpretation Comments White Blood Count (test code = 6690-2) 10.71 4.8-10.8 [facility] Blood Wgize7812-65-65 21:48:00* Test Item Value Reference Range Interpretation Comments Red Blood Count (test code = 789-8) 5.04 4.3-5.7 [facility]hamHemoglobin2018-04-25 21:48:00* Test Item Value Reference Range Interpretation Comments Hemoglobin (test code = 02888-3) 17.3 14.0-18.0 LIPEMIC SPECIMEN, PERFORMED SALINE SPECIMEN AND RAN 3 TIMES FOR CONSISTENCYB[facility] Scott & [facility] BrenhamHematocrit2018-04-25 21:48:00* Test Item Value Reference Range Interpretation Comments Hematocrit (test code = 4544-3) 46.1 38.2-49.6 LIPEMIC SPECIMEN, PERFORMED SALINE SPECIMEN AND RAN 3 TIMES FOR CONSISTENCYBaylor Scott & [facility] BrenhamMean Corpuscular Xasbix3701-20-23 21:48:00* Test Item Value Reference Range Interpretation Comments Mean Corpuscular Volume (test code = 787-2) 91.5 81-99 [facility]hamMean Corpuscular Nyzxicjdhp1600-47-95 21:48:00* Test Item Value Reference Range Interpretation Comments Mean Corpuscular Hemoglobin (test code = 785-6) 34.3 28-32 H [facility]hamMean Corpuscular Hemoglobin Concent 2018-02-13 21:48:00* Test Item Value Reference Range Interpretation Comments Mean Corpuscular Hemoglobin Concent (test code = 786-4) 37.5 31-35 H [facility] BrenhamRed Cell Distribution Mcjjy4968-94-97 21:48:00* Test Item Value Reference Range Interpretation Comments Red Cell Distribution Width (test code = 09606-3) 14.9 11.7 -14.4 H [facility] BrenhamPlatelet Nhlal3209-36-72 21:48:00* Test Item Value Reference Range Interpretation Comments Platelet Count (test code = 777-3) 390 140-360 H [facility] BrenhamNeutrophils (%) (Auto)2018-02-13 21:48:00 * Test Item Value Reference Range Interpretation Comments Neutrophils (%) (Auto) (test code = 33488-8) 42.3 38.7-80.0 [facility]hamLymphocytes (%) (Auto)2018-02-13 21:48:00 * Test Item Value Reference Range Interpretation Comments Lymphocytes (%) (Auto) (test code = 736-9) 43.3 18.0-39.1 H [facility]hamMonocytes (%) (Auto)2018-02-13 21:48:00* Test Item Value Reference Range Interpretation Comments Monocytes (%) (Auto) (test code = 5905-5) 10.7 4.4-11.3 [facility]hamEosinophils (%) (Auto)2018-02-13 21:48:00 * Test Item Value Reference Range Interpretation Comments Eosinophils (%) (Auto) (test code = 713-8) 2.5 0.0-6.0 [facility]hamBasophils (%) (Auto)2018-02-13 21:48:00* Test Item Value Reference Range Interpretation Comments Basophils (%) (Auto) (test code = 706-2) 0.7 0.0-1.0 [facility] BrenhamIM GRANULOCYTES %2018-02-13 21:48:00* Test Item Value Reference Range Interpretation Comments IM GRANULOCYTES % (test code = IM GRANULOCYTES %) 0.5 0.0- 1.0 [facility]hamNeutrophils # (Auto)2018-02-13 21:48:00* Test Item Value Reference Range Interpretation Comments Neutrophils # (Auto) (test code = 751-8) 4.5 2.1-6.9 [facility]hamLymphocytes # (Auto)2018-02-13 21:48:00* Test Item Value Reference Range Interpretation Comments Lymphocytes # (Auto) (test code = 39902-7) 4.6 1.0-3.2 H [facility] BrenhamMonocytes # (Auto)2018-02-13 21:48:00* Test Item Value Reference Range Interpretation Comments Monocytes # (Auto) (test code = 742-7) 1.2 0.2-0.8 H [facility]hamEosinophils # (Auto)2018-02-13 21:48:00* Test Item Value Reference Range Interpretation Comments Eosinophils # (Auto) (test code = 711-2) 0.3 0.0-0.4 [facility]hamBasophils # (Auto)2018-02-13 21:48:00* Test Item Value Reference Range Interpretation Comments Basophils # (Auto) (test code = 704-7) 0.1 0.0-0.1 [facility] BrenhamAbsolute Immature Granulocyte (auto 2018-02-13 21:48:00* Test Item Value Reference Range Interpretation Comments Absolute Immature Granulocyte (auto (hiral t code = Absolute Immature Granulocyte (auto) 0.05 0-0.1 [facility] BrenhamB-Type Natriuretic Ekayrrr2653-92-98 21:46:00* Test Item Value Reference Range Interpretation Comments B-Type Natriuretic Peptide (test code = 14079-4) -10.0 0-100 [facility] BrenhamB-Type Natriuretic Yosubmm4511-43-96 21:46:00* Test Item Value Reference Range Interpretation Comments B-Type Natriuretic Peptide (test code = 43612-4) -10.0 0-100 [facility] BrenhamCreatine Kinase HL2885-75-50 21:29:00* Test Item Value Reference Range Interpretation Comments Creatine Kinase MB (test code = 45036-6) 3.20 0-5.0 [facility] BrenhamTroponin U8319-63-68 21:29:00* Test Item Value Reference Range Interpretation Comments Troponin I (test code = XHC7435) 0.008 0-0.300 [facility] BrenhamD-Dimer Quantitative (PE/DVT)2018-02-13 21:26:00* Test Item Value Reference Range Interpretation Comments D-Dimer Quantitative (PE/DVT) (test code = 51650-1) 0.91 0. 00-0.45 H [facility] BrenhamD-Dimer Quantitative (PE/DVT)2018-02-13 21:26:00* Test Item Value Reference Range Interpretation Comments D-Dimer Quantitative (PE/DVT) (test code = 91467-3) 0.91 0. 00-0.45 [facility] Rehxr9773-35-06 21:25:00* Test Item Value Reference Range Interpretation Comments Sodium Level (test code = 2951-2) 139 136-145 [facility] BrenhamPotassium Tbori1449-23-48 21:25:00* Test Item Value Reference Range Interpretation Comments Potassium Level (test code = 2823-3) 3.8 3.5-5.1 [facility]hamChloride Mwjjx1654-05-61 21:25:00* Test Item Value Reference Range Interpretation Comments Chloride Level (test code = 2075-0) 106 98-107 [facility] BrenhamCarbon Dioxide Yyjyi7500-55-64 21:25:00* Test Item Value Reference Range Interpretation Comments Carbon Dioxide Level (test code = 2028-9) 22 22-29 [facility] BrenhamAnion Zja5722-17-79 21:25:00* Test Item Value Reference Range Interpretation Comments Anion Gap (test code = 76765-6) 14.8 8-16 [facility] BrenhamBlood Urea Ikjjgwws4062-93-50 21:25:00* Test Item Value Reference Range Interpretation Comments Blood Urea Nitrogen (test code = 3094-0) 15 7-26 [facility] BrenhamCreatinine2018-04-25 21:25:00* Test Item Value Reference Range Interpretation Comments Creatinine (test code = 2160-0) 0.95 0.72-1.25 [facility] BrenhamBUN/Creatinine Llapo3827-26-32 21:25:00* Test Item Value Reference Range Interpretation Comments BUN/Creatinine Ratio (test code = 3097-3) 16 6-25 [facility] BrenhamEstimat Glomerular Filtration Rate 2018-02-13 21:25:00* Test Item Value Reference Range Interpretation Comments Estimat Glomerular Filtration Rate (test code = 85152-7) 60- >60 Ranges were taken from the National Kidney Disease Education Program and the On license of [facility] Kidney Foundation literature.Reference ranges:60 or greater: Zhfavz75-55 ( for 3 consecutive months): Chronic kidney disease 15 or less: Kidney failureBaylor Scott & White Medical Center – BrenhamGlucose Jponm1108-58-32 21:25:00* Test Item Value Reference Range Interpretation Comments Glucose Level (test code = GFE5759) 106 74-118 [facility] BrenhamCalcium Fzecc1425-25-91 21:25:00* Test Item Value Reference Range Interpretation Comments Calcium Level (test code = 24526-3) 9.4 8.4-10.2 [facility] BrenhamTotal Ugvrvrida2730-49-03 21:25:00* Test Item Value Reference Range Interpretation Comments Total Bilirubin (test code = 1975-2) 0.4 0.2-1.2 [facility] BrenhamAspartate Amino Transf (AST/SGOT) 2018-02-13 21:25:00* Test Item Value Reference Range Interpretation Comments Aspartate Amino Transf (AST/SGOT) (test code = Aspartate Amino Transf (AST/SGOT)) 27 5-34 [facility] BrenhamAlanine Aminotransferase (ALT/SGPT) 2018-02-13 21:25:00* Test Item Value Reference Range Interpretation Comments Alanine Aminotransferase (ALT/SGPT) (test code = 1742-6) 38 0-55 [facility] BrenhamTotal Ucjgclc3925-47-41 21:25:00* Test Item Value Reference Range Interpretation Comments Total Protein (test code = 2885-2) 7.4 6.5-8.1 [facility] BrenhamAlbumin2018-04-25 21:25:00* Test Item Value Reference Range Interpretation Comments Albumin (test code = 1751-7) 3.8 3.5-5.0 [facility] BrenhamGlobulin2018-04-25 21:25:00* Test Item Value Reference Range Interpretation Comments Globulin (test code = 91662-8) 3.6 2.3-3.5 H [facility] BrenhamAlbumin/Globulin Rrbag9943-08-42 21:25:00 * Test Item Value Reference Range Interpretation Comments Albumin/Globulin Ratio (test code = 1759-0) 1.1 0.8-2.0 [facility] BrenhamAlkaline Lgzvawrhwin7939-88-43 21:25:00* Test Item Value Reference Range Interpretation Comments Alkaline Phosphatase (test code = 6768-6) 63 40-150 [facility] BrenhamCreatine Iyxlfk9232-94-19 21:25:00* Test Item Value Reference Range Interpretation Comments Creatine Kinase (test code = 2157-6) 172 30-200 [facility] BrenhamActivated Partial Thromboplast Time 2018-02-13 21:13:00* Test Item Value Reference Range Interpretation Comments Activated Partial Thromboplast Time (test code = 74198-6) 27.4 23.8-35.5 [facility] BrenhamActivated Partial Thromboplast Time 2018-02-13 21:13:00* Test Item Value Reference Range Interpretation Comments Activated Partial Thromboplast Time (test code = 59759-8) 27.4 23.8-35.5 [facility] BrenhamProthrombin Uevt2587-59-55 21:12:00* Test Item Value Reference Range Interpretation Comments Prothrombin Time (test code = 5902-2) 12.5 11.9-14.5 [facility] BrenhamProthromb Time International Ratio 2018-02-13 21:12:00* Test Item Value Reference Range Interpretation Comments Prothromb Time International Ratio (test code = 6301-6) 1.01 Oral Anticoagulant Therapy INR Values:1. Low Intensity Therapy 1.5 - 2.02 . Moderate Intensity Therapy 2.0 - 3.03. High Intensity Therapy(1) 2.5 - 3. 54. High Intensity Therapy(2) 3.0 - 4.05. Panic Value INR > 5.0 [facility] BrenhamProthrombin Bblj3100-96-79 21:12:00* Test Item Value Reference Range Interpretation Comments Prothrombin Time (test code = 5902-2) 12.5 11.9-14.5 [facility] BrenhamProthromb Time International Ratio 2018-02-13 21:12:00* Test Item Value Reference Range Interpretation Comments Prothromb Time International Ratio (test code = 6301-6) 1.01 Oral Anticoagulant Therapy INR Values:1. Low Intensity Therapy 1.5 - 2.02 . Moderate Intensity Therapy 2.0 - 3.03. High Intensity Therapy(1) 2.5 - 3. 54. High Intensity Therapy(2) 3.0 - 4.05. Panic Value INR > 5.0 [facility] BrenhamCreatine Kinase ZZ2776-12-10 07:42:00* Test Item Value Reference Range Interpretation Comments Creatine Kinase MB (test code = 06373-1) 3.80 0-5.0 [facility] BrenhamTroponin M6956-32-09 07:42:00* Test Item Value Reference Range Interpretation Comments Troponin I (test code = CNP1794) -0.001 0-0.300 [facility]odium Jpzgl5473-22-02 07:39:00* Test Item Value Reference Range Interpretation Comments Sodium Level (test code = 2951-2) 141 136-145 [facility] BrenhamPotassium Ilbcx0127-69-78 07:39:00* Test Item Value Reference Range Interpretation Comments Potassium Level (test code = 2823-3) 4.2 3.5-5.1 [facility] BrenhamChloride Oczpl4744-92-10 07:39:00* Test Item Value Reference Range Interpretation Comments Chloride Level (test code = 2075-0) 112 98-107 H [facility] BrenhamCarbon Dioxide Brcuv1476-48-74 07:39:00* Test Item Value Reference Range Interpretation Comments Carbon Dioxide Level (test code = 2028-9) 22 22-29 [facility] BrenhamAnion Kjo5013-29-33 07:39:00* Test Item Value Reference Range Interpretation Comments Anion Gap (test code = 63744-4) 11.2 8-16 [facility] BrenhamBlood Urea Ywvtucmo4959-43-75 07:39:00* Test Item Value Reference Range Interpretation Comments Blood Urea Nitrogen (test code = 3094-0) 14 7-26 [facility] BrenhamCreatinine2018-02-26 07:39:00* Test Item Value Reference Range Interpretation Comments Creatinine (test code = 2160-0) 0.82 0.72-1.25 [facility] BrenhamBUN/Creatinine Emblk3216-67-95 07:39:00* Test Item Value Reference Range Interpretation Comments BUN/Creatinine Ratio (test code = 3097-3) 17 6-25 [facility] BrenhamEstimat Glomerular Filtration Rate 2017-12-17 07:39:00* Test Item Value Reference Range Interpretation Comments Estimat Glomerular Filtration Rate (test code = 32247-3) 60- >60 Ranges were taken from the National Kidney Disease Education Program and the On license of [facility] Foundation literature.Reference ranges:60 or greater: Zojbhw77-33 ( for 3 consecutive months): Chronic kidney disease 15 or less: Kidney failureBaylor Scott & White Medical Center – BrenhamGlucose Bvjqc5061-31-36 07:39:00* Test Item Value Reference Range Interpretation Comments Glucose Level (test code = GWL3872) 116 74-118 [facility] BrenhamCalcium Blyxv8665-68-77 07:39:00* Test Item Value Reference Range Interpretation Comments Calcium Level (test code = 33667-4) 8.3 8.4-10.2 L [facility] BrenhamTotal Uhemcwclw2586-45-46 07:39:00* Test Item Value Reference Range Interpretation Comments Total Bilirubin (test code = 1975-2) 0.4 0.2-1.2 [facility] BrenhamAspartate Amino Transf (AST/SGOT) 2017-12-17 07:39:00* Test Item Value Reference Range Interpretation Comments Aspartate Amino Transf (AST/SGOT) (test code = Aspartate Amino Transf (AST/SGOT)) 31 5-34 [facility] BrenhamAlanine Aminotransferase (ALT/SGPT) 2017-12-17 07:39:00* Test Item Value Reference Range Interpretation Comments Alanine Aminotransferase (ALT/SGPT) (test code = 1742-6) 43 0-55 [facility] BrenhamTotal Vtuzeoe7745-06-60 07:39:00* Test Item Value Reference Range Interpretation Comments Total Protein (test code = 2885-2) 5.7 6.5-8.1 L [facility] BrenhamAlbumin2018-02-26 07:39:00* Test Item Value Reference Range Interpretation Comments Albumin (test code = 1751-7) 3.4 3.5-5.0 L [facility] BrenhamGlobulin2018-02-26 07:39:00* Test Item Value Reference Range Interpretation Comments Globulin (test code = 22495-9) 2.3 2.3-3.5 [facility] BrenhamAlbumin/Globulin Dmvak3051-19-33 07:39:00 * Test Item Value Reference Range Interpretation Comments Albumin/Globulin Ratio (test code = 1759-0) 1.5 0.8-2.0 [facility] BrenhamAlkaline Mmblrbbohdu1599-15-40 07:39:00* Test Item Value Reference Range Interpretation Comments Alkaline Phosphatase (test code = 6768-6) 44 40-150 [facility] BrenhamTriglycerides Nkemc6193-72-25 07:39:00* Test Item Value Reference Range Interpretation Comments Triglycerides Level (test code = 2571-8) 133 0-149 [facility] BrenhamCholesterol Acqmn5580-48-12 07:39:00* Test Item Value Reference Range Interpretation Comments Cholesterol Level (test code = 2093-3) 131 0-199 Less than 200 mg/dL Low Wndw075 - 239 mg/dL Borderline Fagf225 m g/dl and greater High Risk [facility] BrenhamLDL Rvnqpczvigp1259-45-56 07:39:00* Test Item Value Reference Range Interpretation Comments LDL Cholesterol (test code = 2089-1) 80 60-130 [facility] BrenhamHDL Xvlklkwgqwa9447-78-11 07:39:00* Test Item Value Reference Range Interpretation Comments HDL Cholesterol (test code = 2085-9) 24 40-60 L [facility] BrenhamCholesterol/HDL Xyxsg6799-81-13 07:39:00 * Test Item Value Reference Range Interpretation Comments Cholesterol/HDL Ratio (test code = 9830-1) 5.5 3.9-4.7 H [facility] BrenhamTriglycerides Lucji2027-22-39 07:39:00* Test Item Value Reference Range Interpretation Comments Triglycerides Level (test code = 2571-8) 133 0-149 [facility] BrenhamCholesterol Bndso3411-46-18 07:39:00* Test Item Value Reference Range Interpretation Comments Cholesterol Level (test code = 2093-3) 131 0-199 Less than 200 mg/dL Low Iulj440 - 239 mg/dL Borderline Cfah163 m g/dl and greater High Risk [facility] BrenhamLDL Ypqepkbbpdv7718-71-22 07:39:00* Test Item Value Reference Range Interpretation Comments LDL Cholesterol (test code = 2089-1) 80 60-130 [facility] BrenhamHDL Qvnbjtzibyn5434-19-17 07:39:00* Test Item Value Reference Range Interpretation Comments HDL Cholesterol (test code = 2085-9) 24 40-60 L [facility] BrenhamCholesterol/HDL Rfztu1699-93-60 07:39:00 * Test Item Value Reference Range Interpretation Comments Cholesterol/HDL Ratio (test code = 9830-1) 5.5 3.9-4.7 H [facility] BrenhamTriglycerides Hiokf3520-25-86 07:39:00* Test Item Value Reference Range Interpretation Comments Triglycerides Level (test code = 2571-8) 133 0-149 [facility]hamCholesterol Agwho4426-75-24 07:39:00* Test Item Value Reference Range Interpretation Comments Cholesterol Level (test code = 2093-3) 131 0-199 Less than 200 mg/dL Low Htkc778 - 239 mg/dL Borderline Gfyu340 m g/dl and greater High Risk [facility]hamLDL Xmxhjlmvzfq0833-17-59 07:39:00* Test Item Value Reference Range Interpretation Comments LDL Cholesterol (test code = 2089-1) 80 60-130 [facility] Csrgoaznvsg5703-54-10 07:39:00* Test Item Value Reference Range Interpretation Comments HDL Cholesterol (test code = 2085-9) 24 40-60 L [facility]Cholesterol/HDL Svrmi0724-64-18 07:39:00 * Test Item Value Reference Range Interpretation Comments Cholesterol/HDL Ratio (test code = 9830-1) 5.5 3.9-4.7 H [facility]hamCreatine Qwjuke2691-48-34 07:32:00* Test Item Value Reference Range Interpretation Comments Creatine Kinase (test code = 2157-6) 261 30-200 H [facility]hamWhite Blood Ojyyi0638-66-60 07:22:00* Test Item Value Reference Range Interpretation Comments White Blood Count (test code = 6690-2) 8.14 4.8-10.8 [facility]hamRed Blood Zraqx6589-55-66 07:22:00* Test Item Value Reference Range Interpretation Comments Red Blood Count (test code = 789-8) 3.40 4.3-5.7 L [facility]hamHemoglobin2018-02-26 07:22:00* Test Item Value Reference Range Interpretation Comments Hemoglobin (test code = 90348-5) 11.7 14.0-18.0 L [facility]hamHematocrit2018-02-26 07:22:00* Test Item Value Reference Range Interpretation Comments Hematocrit (test code = 4544-3) 31.2 38.2-49.6 L [facility]hamMean Corpuscular Cyyitl7715-63-82 07:22:00* Test Item Value Reference Range Interpretation Comments Mean Corpuscular Volume (test code = 787-2) 91.8 81-99 [facility]hamMean Corpuscular Fchtovwhnz6598-31-16 07:22:00* Test Item Value Reference Range Interpretation Comments Mean Corpuscular Hemoglobin (test code = 785-6) 34.4 28-32 H [facility]hamMean Corpuscular Hemoglobin Concent 2017-12-17 07:22:00* Test Item Value Reference Range Interpretation Comments Mean Corpuscular Hemoglobin Concent (test code = 786-4) 37.5 31-35 H [facility]hamRed Cell Distribution Cxfkh7772-71-96 07:22:00* Test Item Value Reference Range Interpretation Comments Red Cell Distribution Width (test code = 40431-2) 13.0 11.7 -14.4 [facility]hamPlatelet Jfeyt5947-39-19 07:22:00* Test Item Value Reference Range Interpretation Comments Platelet Count (test code = 777-3) 310 140-360 [facility]hamNeutrophils (%) (Auto)2017-12-17 07:22:00 * Test Item Value Reference Range Interpretation Comments Neutrophils (%) (Auto) (test code = 47153-3) 47.5 38.7-80.0 [facility]hamLymphocytes (%) (Auto)2017-12-17 07:22:00 * Test Item Value Reference Range Interpretation Comments Lymphocytes (%) (Auto) (test code = 736-9) 40.0 18.0-39.1 H [facility]hamMonocytes (%) (Auto)2017-12-17 07:22:00* Test Item Value Reference Range Interpretation Comments Monocytes (%) (Auto) (test code = 5905-5) 7.9 4.4-11.3 [facility]hamEosinophils (%) (Auto)2017-12-17 07:22:00 * Test Item Value Reference Range Interpretation Comments Eosinophils (%) (Auto) (test code = 713-8) 3.7 0.0-6.0 [facility]hamBasophils (%) (Auto)2017-12-17 07:22:00* Test Item Value Reference Range Interpretation Comments Basophils (%) (Auto) (test code = 706-2) 0.7 0.0-1.0 [facility]hamIM GRANULOCYTES %2017-12-17 07:22:00* Test Item Value Reference Range Interpretation Comments IM GRANULOCYTES % (test code = IM GRANULOCYTES %) 0.2 0.0- 1.0 [facility]hamNeutrophils # (Auto)2017-12-17 07:22:00* Test Item Value Reference Range Interpretation Comments Neutrophils # (Auto) (test code = 751-8) 3.9 2.1-6.9 [facility]hamLymphocytes # (Auto)2017-12-17 07:22:00* Test Item Value Reference Range Interpretation Comments Lymphocytes # (Auto) (test code = 12792-6) 3.3 1.0-3.2 H [facility]hamMonocytes # (Auto)2017-12-17 07:22:00* Test Item Value Reference Range Interpretation Comments Monocytes # (Auto) (test code = 742-7) 0.6 0.2-0.8 [facility]hamEosinophils # (Auto)2017-12-17 07:22:00* Test Item Value Reference Range Interpretation Comments Eosinophils # (Auto) (test code = 711-2) 0.3 0.0-0.4 [facility]hamBasophils # (Auto)2017-12-17 07:22:00* Test Item Value Reference Range Interpretation Comments Basophils # (Auto) (test code = 704-7) 0.1 0.0-0.1 [facility]hamAbsolute Immature Granulocyte (auto 2017-12-17 07:22:00* Test Item Value Reference Range Interpretation Comments Absolute Immature Granulocyte (auto (hiral t code = Absolute Immature Granulocyte (auto) 0.02 0-0.1 [facility] BrenhamUrine KZE0977-78-53 21:30:00* Test Item Value Reference Range Interpretation Comments Urine WBC (test code = 5821-4) 0-5 0-5 [facility]hamUrine KVO2909-40-53 21:30:00* Test Item Value Reference Range Interpretation Comments Urine RBC (test code = 97770-2) 0-5 0-5 [facility]hamUrine Wedatlyt3091-87-61 21:30:00* Test Item Value Reference Range Interpretation Comments Urine Bacteria (test code = 31120-2) RARE NONE [facility]hamUrine Epithelial Vxalg2322-24-65 21:30:00 * Test Item Value Reference Range Interpretation Comments Urine Epithelial Cells (test code = 50503-5) FEW NONE [facility]hamUrine RPR6148-05-91 21:30:00* Test Item Value Reference Range Interpretation Comments Urine WBC (test code = 5821-4) 0-5 0-5 [facility]hamUrine GEV8196-13-39 21:30:00* Test Item Value Reference Range Interpretation Comments Urine RBC (test code = 63161-3) 0-5 0-5 [facility]hamU[facility] Higkaisc2058-97-58 21:30:00* Test Item Value Reference Range Interpretation Comments Urine Bacteria (test code = 08190-9) RARE NONE [facility]hamUrine Epithelial Vexlm0496-39-57 21:30:00 * Test Item Value Reference Range Interpretation Comments Urine Epithelial Cells (test code = 89130-2) FEW NONE [facility]hamU[facility] BGX0617-47-18 21:30:00* Test Item Value Reference Range Interpretation Comments Urine WBC (test code = 5821-4) 0-5 0-5 [facility]hamU[facility] TCO3820-05-48 21:30:00* Test Item Value Reference Range Interpretation Comments Urine RBC (test code = 64592-2) 0-5 0-5 [facility]hamUrine Xlnxkqbs8872-53-42 21:30:00* Test Item Value Reference Range Interpretation Comments Urine Bacteria (test code = 28965-3) RARE NONE [facility]hamUrine Epithelial Szeea6494-91-80 21:30:00 * Test Item Value Reference Range Interpretation Comments Urine Epithelial Cells (test code = 14213-6) FEW NONE [facility]hamUrine Urdfe4832-69-96 21:13:00* Test Item Value Reference Range Interpretation Comments Urine Color (test code = 5778-6) YELLOW YELLOW [facility]hamUrine Sjtqpse8378-05-18 21:13:00* Test Item Value Reference Range Interpretation Comments Urine Clarity (test code = 77193-7) CLEAR CLEAR [facility]hamUrine Specific Lacucol3591-32-77 21:13:00 * Test Item Value Reference Range Interpretation Comments Urine Specific [place] (test code = 5811-5) 1.015 1.010-1.02 5 [facility]hamUrine tU0671-46-74 21:13:00* Test Item Value Reference Range Interpretation Comments Urine pH (test code = 88610-0) 5 5-7 [facility]hamU[facility] Leukocyte Rvnlhnzt5521-71-48 21:13:00* Test Item Value Reference Range Interpretation Comments Urine Leukocyte Esterase (test code = 5799-2) NEGATIVE NEGATIVE [facility]hamUrine Zauxuah4425-79-24 21:13:00* Test Item Value Reference Range Interpretation Comments Urine Nitrite (test code = 26378-1) NEGATIVE NEGATIVE [facility]hamU[facility] Fxsocro3482-06-08 21:13:00* Test Item Value Reference Range Interpretation Comments Urine Protein (test code = 5804-0) NEGATIVE NEGATIVE [facility]hamUrine Glucose (UA)2017-12-15 21:13:00* Test Item Value Reference Range Interpretation Comments Urine Glucose (UA) (test code = 2349-9) NEGATIVE NEGATIVE [facility]hamU[facility] Yzswxhn9350-48-69 21:13:00* Test Item Value Reference Range Interpretation Comments Urine Ketones (test code = 24319-8) NEGATIVE NEGATIVE [facility] Jfkmoowquwtk9908-53-60 21:13:00* Test Item Value Reference Range Interpretation Comments Urine Urobilinogen (test code = 90310-1) 0.2 0.2-1 [facility] Qmnwsqzvu0751-72-17 21:13:00* Test Item Value Reference Range Interpretation Comments Urine Bilirubin (test code = 1978-6) NEGATIVE NEGATIVE [facility]hamU[facility] Kjmqi7160-29-42 21:13:00* Test Item Value Reference Range Interpretation Comments Urine Blood (test code = 13232-6) NEGATIVE NEGATIVE [facility]hamU[facility] Uauxw0036-00-08 21:13:00* Test Item Value Reference Range Interpretation Comments Urine Color (test code = 5778-6) YELLOW YELLOW [facility]hamU[facility] Pvddfse5519-41-62 21:13:00* Test Item Value Reference Range Interpretation Comments Urine Clarity (test code = 89504-7) CLEAR CLEAR [facility]hamUrine Specific Mtfatdh1475-06-07 21:13:00 * Test Item Value Reference Range Interpretation Comments Urine Specific [place] (test code = 5811-5) 1.015 1.010-1.02 5 [facility]hamU[facility] yR2702-97-49 21:13:00* Test Item Value Reference Range Interpretation Comments Urine pH (test code = 90044-7) 5 5-7 [facility] Leukocyte Mjoxsaam9132-17-76 21:13:00* Test Item Value Reference Range Interpretation Comments Urine Leukocyte Esterase (test code = 5799-2) NEGATIVE NEGATIVE [facility] Nmpezlh0220-17-72 21:13:00* Test Item Value Reference Range Interpretation Comments Urine Nitrite (test code = 49731-4) NEGATIVE NEGATIVE [facility]hamU[facility] Epghbet7868-39-36 21:13:00* Test Item Value Reference Range Interpretation Comments Urine Protein (test code = 5804-0) NEGATIVE NEGATIVE [facility] Glucose (UA)2017-12-15 21:13:00* Test Item Value Reference Range Interpretation Comments Urine Glucose (UA) (test code = 2349-9) NEGATIVE NEGATIVE [facility] Enfytkc4011-32-18 21:13:00* Test Item Value Reference Range Interpretation Comments Urine Ketones (test code = 04579-5) NEGATIVE NEGATIVE [facility] Aarxerrewlbn5191-89-24 21:13:00* Test Item Value Reference Range Interpretation Comments Urine Urobilinogen (test code = 17611-5) 0.2 0.2-1 [facility] Nssirwevv6339-98-77 21:13:00* Test Item Value Reference Range Interpretation Comments Urine Bilirubin (test code = 1978-6) NEGATIVE NEGATIVE [facility] Fztki7175-65-14 21:13:00* Test Item Value Reference Range Interpretation Comments Urine Blood (test code = 66910-0) NEGATIVE NEGATIVE [facility]hamU[facility] Njnyr0967-11-87 21:13:00* Test Item Value Reference Range Interpretation Comments Urine Color (test code = 5778-6) YELLOW YELLOW [facility]hamU[facility] Guwuaau5219-69-74 21:13:00* Test Item Value Reference Range Interpretation Comments Urine Clarity (test code = 26849-0) CLEAR CLEAR [facility]hamU[facility] Specific Uxkdnha1619-46-43 21:13:00 * Test Item Value Reference Range Interpretation Comments Urine Specific [place] (test code = 5811-5) 1.015 1.010-1.02 5 [facility]hamU[facility] kK1193-54-85 21:13:00* Test Item Value Reference Range Interpretation Comments Urine pH (test code = 45185-8) 5 5-7 [facility] Leukocyte Rrdhrfdw5052-90-09 21:13:00* Test Item Value Reference Range Interpretation Comments Urine Leukocyte Esterase (test code = 5799-2) NEGATIVE NEGATIVE [facility] Vstgozp4068-66-34 21:13:00* Test Item Value Reference Range Interpretation Comments Urine Nitrite (test code = 50230-9) NEGATIVE NEGATIVE [facility] Fheokrz6408-96-80 21:13:00* Test Item Value Reference Range Interpretation Comments Urine Protein (test code = 5804-0) NEGATIVE NEGATIVE [facility] Glucose (UA)2017-12-15 21:13:00* Test Item Value Reference Range Interpretation Comments Urine Glucose (UA) (test code = 2349-9) NEGATIVE NEGATIVE [facility] Ulsmxqo5012-12-94 21:13:00* Test Item Value Reference Range Interpretation Comments Urine Ketones (test code = 29217-1) NEGATIVE NEGATIVE [facility] Ztvrhbvoxcki0992-86-20 21:13:00* Test Item Value Reference Range Interpretation Comments Urine Urobilinogen (test code = 19752-2) 0.2 0.2-1 [facility] Rycaycuyp2784-68-78 21:13:00* Test Item Value Reference Range Interpretation Comments Urine Bilirubin (test code = 1978-6) NEGATIVE NEGATIVE [facility] Qjvhe4151-23-46 21:13:00* Test Item Value Reference Range Interpretation Comments Urine Blood (test code = 86110-3) NEGATIVE NEGATIVE [facility]hamProthrombin Vzym6945-45-03 20:29:00* Test Item Value Reference Range Interpretation Comments Prothrombin Time (test code = 5902-2) 13.1 11.9-14.5 [facility]hamProthromb Time International Ratio 2017-12-15 20:29:00* Test Item Value Reference Range Interpretation Comments Prothromb Time International Ratio (test code = 6301-6) 1.07 Oral Anticoagulant Therapy INR Values:1. Low Intensity Therapy 1.5 - 2.02 . Moderate Intensity Therapy 2.0 - 3.03. High Intensity Therapy(1) 2.5 - 3. 54. High Intensity Therapy(2) 3.0 - 4.05. Panic Value INR > 5.0 [facility]hamActivated Partial Thromboplast Time 2017-12-15 20:29:00* Test Item Value Reference Range Interpretation Comments Activated Partial Thromboplast Time (test code = 02939-2) 29.2 23.8-35.5 [facility]hamCT [facility] W [facility] [address] [place] [address] Patient Name: JOSEPH LONGO MR #: [id number] : 1950 Age/Sex: 67/M Req #: [id number] Adm Physician: Ordered by: TRAE LÓPEZ MD Report #: [id number] Location: ER Room/Bed: Procedure: [id number] CT/CT CHEST W Exam Ervin e: 02/13/18 [...] TO: TRAE LÓPEZ MD CHEST SINGLE (PORTABLE) [place] [address] Patient Name: JOSEPH LONGO MR #: [id number] : 1950 Age/Sex: 67/M Req #: [id number] Adm Physician: Ordered by: TRAE LÓPEZ MD Report #: [id number] Location: [facility] oom/Bed: Procedure: [id number] DX/CHEST SINGLE (PORTAB LE) Exam Date: 02/13/18 [...] TRAE LÓPEZ MD CT CERVICAL SPINE WO [place] [address] Patient Name: JOSEPH LONGO MR #: [id number] : 1950 Age/Sex: 67/M Req #: [id number] Adm Physician: Ordered by: YUNG CHIRINOS MD Report #: [id number] Location: ER Room/Bed: Procedure: [id number] CT/CT CERVICAL SPINE WO Exam Date: 12/15/17 [...] TO: YUNG CHIRINOS MD CT BRAIN WO [place] [address] Patient Name: JOSEPH LONGO MR #: [id number] : 1950 Age/Sex: 67/M Req #: [id number] Adm Physician: Ordered by: YUNG CHIRINOS MD Report #: [id number] Location: ER Room/Bed : Procedure: [id number] CT/CT BRAIN WO Exam Date: Exam Time: [...] TO: YUNG CHIRINOS MD CT CHEST W [place] [address] Patient Name: JOSEPH LONGO MR #: [id number] : 1950 Age/Sex: 67/M Req #: [id number] Adm Physician: Ordered by: YUNG CHIRINOS MD Report #: [id number] Location: ER Room/Bed: Procedure: [id number] CT/CT CHEST W Exam Date: 11/23 02/06 [...] TO: YUNG CHIRINOS MD CHEST 2 VIEWS [place] [address] Patient Name: JOSEPH LONGO MR #: [id number] : 1950 Age/Sex: 67/M Req #: [id number] Adm Physician: Ordered by: YUGN CHIRINOS MD Report #: [id number] Location: Room/Bed : Procedure: [id number] DX/CHEST 2 VIEWS Exam Date: 0 12/15/17 [...]
--- NOTE | 2020-05-28 16:44 | Emergency Department Note ---
History of Present Illnes History of Present Illness Chief Complaint: General Medicine Complaints History of Present Illness This is a 70 year old male arrives to the ED with low blood pressure and generalized malaise/weakness. Chief Complaint Comment states he just did 2nd rd of chemo today hx lung and bone ca states his bp got really low and he almost passed out dr humphrey oncologist denies cp pt usually has sob but is not more sob denies dizziness denies lightheadedness former smoker denies etoh denies illegal drug use denies medicinal marijuana pt has htn states he took bp meds and did not take more than he was supposed states he double checked before taking it not sure of bp med name seen by dr muñoz Historian: Patient Arrival Mode: Car Onset (how long ago): hour(s) Radiation: Reports non-radiation Severity: mild Onset quality: sudden Duration (how long): hour(s) Timing of current episode: constant Progression: worsening Chronicity: recurrent Context: Reports recent illness Relieving factors: none Exacerbating factors: none Past Medical/Family History Physician Review I have reviewed the patient's past medical and family history. Any updates have been documented here. Past Medical History Recent Fever: No Clinical Suspicion of Infectio: No New/Unexplained Change in Ment: No Past Medical History: Hypertension, Cancer, Anxiety, Hyperlipedemia Other Medical History: prostate enlarge LITHOTRIPSY HIGH CHOLESTEROL ASBESTOSIS DEPRESSION lung and bone ca Past Surgical History: T&A, PCI, Hernia Repair, Back Surgery Other Surgery: hernia repair 2 years ago at this hospital. 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 Social History Smoking Cessation: Never Smoker Counseling Performed: No Alcohol Use: None Any Illegal Drug Use: No Other Last Tetanus: [place] Any Pre-Existing Lines (PICC,: No Review of Systems Review of Systems Constitutional: Reports no symptoms, Reports as per HPI, Reports malaise, Reports weakness EENTM: Reports no symptoms Cardiovascular: Reports no symptoms Respiratory: Reports no symptoms Gastrointestinal: Reports no symptoms Genitourinary: Reports no symptoms Musculoskeletal: Reports no symptoms Integumentary: Reports no symptoms Neurological: Reports as per HPI Psychological: Reports no symptoms Endocrine: Reports no symptoms Hematological/Lymphatic: Reports no symptoms Physical Exam Related Data Allergies: Coded Allergies: diphenhydramine HCl (Verified Allergy, Mild, ITCHY, 04/17/18) hydrocodone bit (Verified Allergy, Mild, ITCHY, 04/17/18) Triage Vital Signs Vital Signs Date Time Temp Pulse Resp B/P (MAP) Pulse Ox O2 Delivery O2 Flow Rate FiO2 05/28/20 10:52 98.2 60 18 84/57 100 Room Air Vital signs reviewed: Yes Physical Exam CONSTITUTIONAL Constitutional: Present well-developed, Present well-nourished HENT HENT: Present normocephalic, Present atraumatic, Present oropharynx clear/moist, Present nose normal HENT L/R: Present left ext ear normal, Present right ext ear normal EYES Eyes: Reports PERRL, Reports conjunctivae normal NECK Neck: Present ROM normal PULMONARY Pulmonary: Present effort normal, Present breath sounds normal CARDIOVASCULAR Cardiovascular: Present regular rhythm, Present heart sounds normal, Present capillary refill normal, Present normal rate GASTROINTESTINAL Abdominal: Present soft, Present nontender, Present bowel sounds normal GENITOURINARY Genitourinary: Present exam deferred SKIN Skin: Present warm, Present dry MUSCULOSKELETAL Musculoskeletal: Present ROM normal NEUROLOGICAL Neurological: Present alert, Present oriented x 3, Present no gross motor or sensory deficits PSYCHOLOGICAL Psychological: Present mood/affect normal, Present judgement normal Results Laboratory Result Diagram: 05/28/20 1111 05/28/20 1111 Laboratory Laboratory Tests Test 05/28/20 14:55 05/28/20 14:36 05/28/20 11:18 05/28/20 11:11 Lactic Acid Level 0.7 mmol/L (0.5-2.0) 2.5 mmol/L (0.5-2.0) White Blood Count 26.02 x10e3/uL (4.8-10.8) Red Blood Count 4.15 x10e6/uL (4.3-5.7) Hemoglobin 13.4 g/dL (14.0-18.0) Hematocrit 38.8 % (38.2-49.6) Mean Corpuscular Volume 93.5 fL (81-99) Mean Corpuscular Hemoglobin 32.3 pg (28-32) Mean Corpuscular Hemoglobin Concent 34.5 g/dL (31-35) Red Cell Distribution Width 14.3 % (11.7-14.4) Platelet Count 356 x10e3/uL (140-360) Neutrophils (%) (Auto) 88.2 % (38.7-80.0) Lymphocytes (%) (Auto) 8.9 % (18.0-39.1) Monocytes (%) (Auto) 1.1 % (4.4-11.3) Eosinophils (%) (Auto) 0.2 % (0.0-6.0) Basophils (%) (Auto) 0.6 % (0.0-1.0) Neutrophils # (Auto) 23.0 (2.1-6.9) Lymphocytes # (Auto) 2.3 (1.0-3.2) Monocytes # (Auto) 0.3 (0.2-0.8) Eosinophils # (Auto) 0.0 (0.0-0.4) Basophils # (Auto) 0.2 (0.0-0.1) Absolute Immature Granulocyte (auto 0.27 x10e3/uL (0-0.1) Sodium Level 133 mmol/L (136-145) Potassium Level 4.8 mmol/L (3.5-5.1) Chloride Level 103 mmol/L (98-107) Carbon Dioxide Level 21 mmol/L (22-29) Anion Gap 13.8 mmol/L (8-16) Blood Urea Nitrogen 16 mg/dL (7-26) Creatinine 0.84 mg/dL (0.72-1.25) Estimat Glomerular Filtration Rate > 60 ML/MIN (60-) BUN/Creatinine Ratio 19 (6-25) Glucose Level 102 mg/dL (74-118) Calcium Level 8.7 mg/dL (8.4-10.2) Total Bilirubin 0.8 mg/dL (0.2-1.2) Aspartate Amino Transf (AST/SGOT) 32 IU/L (5-34) Alanine Aminotransferase (ALT/SGPT) 31 IU/L (0-55) Alkaline Phosphatase 131 IU/L (40-150) Creatine Kinase 54 IU/L (30-200) Creatine Kinase MB 1.30 ng/mL (0-5.0) Troponin I < 0.001 ng/mL (0-0.300) Total Protein 7.3 g/dL (6.5-8.1) Albumin 3.4 g/dL (3.5-5.0) Globulin 3.9 g/dL (2.3-3.5) Albumin/Globulin Ratio 0.9 (0.8-2.0) Lab results reviewed: Yes Imaging Imaging results reviewed: Yes Procedures 12 Lead ECG Interpretation ECG Interpretation : ECG: ECG 1 Rhythm: sinus rhythm Rate: normal QRS axis: normal ST segments normal: Yes Clinical Impression: normal ECG Critical Care Time Total Critical Care Time (min): 45 Critical care time exclusive o: separately billable procedures Critcal care necessary due to: sepsis Assessment & Plan Medical Decision Making MDM 70-year-old male arrives to the ED with low blood pressure and tachycardia. Concerns of severe sepsis noted at time 0 of 1200. Surgical criteria met with tachycardia, elevated WBC count, organ dysfunction met with elevated lactic acid, while no source of infection is noted initially in the ED patient was presumably sepsis with unknown source Blood cultures and lactic acid obtained, BSA given Initial lactic 2.9, repeat lactic 0.7 Patient admitted for further workup and management. Assessment & Plan Final Impression: (1) Severe sepsis Depart Disposition: ADMITTED Last Vital Signs Date Time Temp Pulse Resp B/P (MAP) Pulse Ox O2 Delivery O2 Flow Rate FiO2 05/28/20 14:58 62 19 136/68 100 Room Air 05/28/20 11:30 98.6 Home Meds Active Scripts Tramadol Hcl* (ULTRAM 50MG*) 50 Mg Tab, 50 MG PO Q8H PRN for pain, #30 TAB Prov:GARETH LIND Medardo SERVICE ADVISOR 03/24/20 Ranolazine (RANEXA) 500 Mg Tabsr, 1000 MG PO BID for 30 Days Prov:GARETH LIND SERVICE ADVISOR 03/24/20 Reported Medications Loratadine (LORATADINE) 10 Mg Tablet, 10 MG PO DAILY, #30 TAB 03/23/20 Tizanidine Hcl (TIZANIDINE HCL) 4 Mg Capsule, 2 MG PO HS 03/23/20 Atorvastatin Calcium (ATORVASTATIN CALCIUM) 20 Mg Tablet, 40 MG PO HS, #30 TAB 02/03/20 Metoprolol Succinate (METOPROLOL SUCCINATE) 25 Mg Tab.er.24h 12/24/18 Terazosin Hcl (TERAZOSIN HCL) 5 Mg Capsule, 5 MG PO DAILY, #30 CAP 02/19/16 Finasteride (FINASTERIDE) 5 Mg Tablet, 5 MG PO DAILY, #30 TAB 02/19/16 Loratadine (LORATADINE) 10 Mg Tablet, 10 MG PO DAILY, #30 TAB 02/19/16 Citalopram Hydrobromide (CITALOPRAM HBR) 40 Mg Tablet, 40 MG PO DAILY 02/19/16 Ascorbic Acid (VITAMIN C) 500 Mg Tablet, 500 MG PO DAILY 02/19/16 Multivitamin (DAILY VITAMIN) 1 Each Tablet, PO DAILY 07/09/13 Medications in the ED Sodium Chloride 1,000 ml @ ud STK-MED ONCE .ROUTE ; Start 05/28/20 at 11:29; Stop 05/28/20 at 11:23; Status DC Ceftriaxone Sodium 50 ml @ 100 mls/hr ONCE ONCE IV Last administered on 05/28/20at 11:48; Admin Dose 100 MLS/HR; Start 05/28/20 at 11:30; Stop 05/28/20 at 11:59; Status DC Sodium Chloride 1,000 ml @ 100 mls/hr Q10H STAT IV Last administered on 05/28/20at 11:31; Admin Dose 999 MLS/HR; Start 05/28/20 at 11:30; Stop 05/28/20 at 21:29 Sodium Chloride 1,000 ml @ STK-MED ONCE .ROUTE ; Start 05/28/20 at 12:15; Stop 05/28/20 at 12:09; Status DC MAGDY MUÑOZ, May 28, 2020 16:44
[2020-05-28] MEDS ORDERED: VANCOMYCIN 1GM/NS 250 ML 250 ML IV ONE (17:00)
[2020-05-28] MEDS ORDERED: MS CONTIN30 MG PO (18:10)
[2020-05-28] MEDS ORDERED: ASPIRIN81 MG PO (18:10)
[2020-05-28 18:29] VITALS: BP 150/76
--- NOTE | 2020-05-28 18:30 | NUR ---
PATIENT ARRIVED FROM ER TO ROOM 213, HE IS IN STABLE CONDITION. ORIENTED TO ROOM AND POLICIES. ORIENTED TO TRANSITION OF CARE FOLDER. CALL LIGHT WITHIN REACH. BED IN THE LOWEST POSITION. BED ALARM ON.
[2020-05-28 18:35] VITALS: BP 150/76
[2020-05-28 18:36] VITALS: BP 150/76
[2020-05-28 19:31] LABS: CREATINE KINASE 45 IU/L (30-200)
--- NOTE | 2020-05-28 19:35 | NUR ---
BEDSIDE SHIFT REPORT GIVEN TO ONCOMING NURSE. PATIENT IS RESTING IN BED. NO ACUTE DISTRESS NOTED. CALL LIGHT WITHIN REACH. BED IN THE LOWEST POSITION.
[2020-05-28 20:00] VITALS: BP 164/79
--- NOTE | 2020-05-28 20:11 | NUR ---
SPOKE TO MD ARNOLD AT BEDSIDE. NEW ORDERS RECEIVED.
--- NOTE | 2020-05-28 20:49 | NUR ---
CALLED MD ARNOLD REGARDING ORDERS. AWAITING CALL BACK.
--- NOTE | 2020-05-28 20:53 | NUR ---
SPOKE TO MD ARNOLD. NEW ORDERS RECEIVED.
--- NOTE | 2020-05-28 21:24 | NUR ---
SPOKE TO MD DIALLO'S EMBROIDERY OPERATOR MACY. NEW ORDERS RECEIVED.
[2020-05-28] MEDS ORDERED: MORPHINE SULFATE 30 MG TAB ER PO SCH (21:30)
[2020-05-28] MEDS: FINASTERIDE 5 MG TAB PO SCH (21:55)
[2020-05-28] MEDS: RANOLAZINE 500 MG TABSR PO SCH (21:55)
[2020-05-28] MEDS: TERAZOSIN HCL 5 MG CAP PO SCH (21:55)
[2020-05-29] VITALS (8 sets, daily range): BP systolic 98–153; BP diastolic 76–84
[2020-05-29] MEDS: VANCOMYCIN 1GM/NS 250 ML 250 ML IV SCH
[2020-05-29 01:37] LABS: CREATINE KINASE 44 IU/L (30-200)
[2020-05-29 05:14] LABS: BASOPHILS # (AUTO) 0.1 (0.0-0.1); BASOPHILS % 0.7 % (0.0-1.0); EOSINOPHILS # (AUTO) 0.1 (0.0-0.4); EOSINOPHILS % 0.8 % (0.0-6.0); HEMATOCRIT 32.3 % (38.2-49.6); HEMOGLOBIN 11.4 g/dL (14.0-18.0); LYMPHOCYTES # (AUTO) 2.8 (1.0-3.2); LYMPHOCYTES % 19.2 % (18.0-39.1); MEAN CORPUSCULAR HGB CONC 35.3 g/dL (31-35); MEAN CORPUSCULAR VOLUME 93.6 fL (81-99); MONOCYTES # (AUTO) 0.4 (0.2-0.8); MONOCYTES % 2.4 % (4.4-11.3); NEUTROPHILS # (AUTO) 11.2 (2.1-6.9); NEUTROPHILS % 76.5 % (38.7-80.0); PLATELET COUNT 256 x10e3/uL (140-360); RED BLOOD COUNT 3.45 x10e6/uL (4.3-5.7); RED CELL DISTRIBUTION WIDTH 14.3 % (11.7-14.4)
[2020-05-29 05:34] LABS: ALANINE AMINOTRANSFERASE 25 IU/L (0-55); ALKALINE PHOSPHATASE 84 IU/L (40-150); ANION GAP 12.3 mmol/L (8-16); BLOOD UREA NITROGEN 9 mg/dL (7-26); BUN/CREATININE RATIO 15 (6-25); CALCIUM 7.5 mg/dL (8.4-10.2); CARBON DIOXIDE 20 mmol/L (22-29); CHLORIDE 108 mmol/L (98-107); CREATININE, SERUM 0.61 mg/dL (0.72-1.25); EST GLOMERULAR FILTRATION RATE > 60 ML/MIN (60-); GLUCOSE 91 mg/dL (74-118); POTASSIUM 4.3 mmol/L (3.5-5.1); SODIUM 136 mmol/L (136-145)
[2020-05-29 05:49] LABS: MAGNESIUM 1.7 MG/DL (1.3-2.1); PHOSPHORUS 2.2 MG/DL (2.3-4.7)
--- NOTE | 2020-05-29 07:08 | NUR ---
REPORT GIVEN TO DAYSHIFT NURSE. ALERT AND RESTING IN BED. NO SIGNS IV INFILTRATION. BED LOCKED AND IN LOW POSITION. CALL LIGHT WITHIN REACH. BED ALARM ACTIVATED.
--- NOTE | 2020-05-29 08:12 | NUR ---
The pt. has completed Ct chest and returned to the room.
[2020-05-29] MEDS ORDERED: SODIUM CHLORIDE 0.9% 50ML 50 ML ONE (08:20)
[2020-05-29] MEDS ORDERED: IOPAMIDOL 370 MG/ML 200 ML INFUS..BTL INJ ONE (08:21)
[2020-05-29] MEDS: RANOLAZINE 500 MG TABSR PO SCH ×2 (08:50→17:12)
[2020-05-29] MEDS: MORPHINE SULFATE 30 MG TAB ER PO SCH ×2 (08:51→17:11)
[2020-05-29] MEDS ORDERED: MAGNESIUM SULF 1GRAM/DEXTROSE 100 ML IV ONE (11:15)
[2020-05-29] MEDS ORDERED: SODIUM PHOSPHATE 3 MMOL/ML INJ IV ONE (11:15)
[2020-05-29] MEDS ORDERED: SODIUM CHLORIDE 0.9% 250ML 250 ML ONE (11:32)
--- NOTE | 2020-05-29 14:10 | NUR ---
Nutrition Screen Note RD Recommendation for Physician: -Add mechanical soft to current diet order -Add Ensure Enlive TID, per pt request and history of cancer -RD to communicated diet preferences with kitchen Plan of Care: RD following, monitoring for tolerance and adequacy Nutrition reason for involvement: Nutrition diagnosis MST Primary Diagnose(s): Severe sepsis PMH: HTN, HLD, depression, BPH, lung / bone cancer on chemotherapy Ht: 68in Wt: 182# BMI: 27.7kg/m2 IBW: 154lb +/- 10% RD Assessment: Chart reviewed. Labs and meds reviewed. 70yo M, who was admitted for severe sepsis. Visited pt in the room. Pt with history of cancer, last chemotherapy was on 05/24. Pt reports fair appetite without any complains of nausea or vomiting. Pt denies any chewing or swallowing difficulty. No known food allergies. Pt has been maintaining his weight at ~180lbs +. Pt eats good at home and drinks 1-2 Ensure plus daily. Pt has no teeth and likes his food to be soft. Discussed food preferences, will communicate with kitchen. Will continue to follow. Current Diet: Cardiac diet Malnutrition Evaluation (05/29) The patient does not meet criteria for a specified degree of malnutrition at this time. Will re-evaluate at follow-up as appropriate. Diet Education Needs Assessment: Diet education not indicated. Nutrition Care Level: low Signed: Triny Samaniego MS, RD, LD
[2020-05-29] MEDS ORDERED: SODIUM PHOSPHATE 10 MMOL in SODIUM CHLORIDE 0.9% 250ML 250 ML IV ONE (16:00)
--- NOTE | 2020-05-29 16:13 | Diagnostic Imaging Report ---
EXAM: CT Chest WITH contrast 05/29/2020 8:00 AM INDICATION: Sepsis. COMPARISON: 03/22/2020. TECHNIQUE: Chest was scanned utilizing a multidetector helical scanner from the lung apex through the level of the diaphragm after administration of IV contrast. Thin section reconstructions were obtained with special concentration on the pulmonary arteries. Coronal and sagittal reformations were obtained. Pulmonary embolism protocol was performed. IV CONTRAST: 100 mL of Isovue 370 COMPLICATIONS: None RADIATION DOSE: Total DLP: 612.10 mGy*cm Estimated effective dose: (DLP x 0.014 x size factor) mSv CTDIvol has been reviewed. It is below the limits set by the Radiation Protocol Committee (RPC). Dose modulation, iterative reconstruction, and/or weight based adjustment of the mA/kV was utilized to reduce the radiation dose to as low as reasonably achievable. FINDINGS: LINES/ TUBES: None. LUNGS AND AIRWAYS: Redemonstration of an invasive left upper lobe apical medial mass which invades the mediastinum and encases the left subclavian and carotid arteries and partially encases the thoracic aorta and brachiocephalic artery. It has increased in size, previously estimated at 5.9 x 4.8 cm on image 33 series 2, currently 6.6 x 5.9 cm on image 30 series 2. There is also left hilar lymphadenopathy with narrowing of the left pulmonary artery as seen on image 47 increased since the prior exam. Left basilar atelectasis. Elevated left hemidiaphragm. Bilateral centrilobular and paraseptal emphysematous most markedly involving the upper lobes. PLEURA: Interval development of a small left pleural effusion. HEART AND MEDIASTINUM: The thyroid gland is normal. Enlarged mediastinal lymph nodes include Redemonstration of enlarged mediastinal lymph nodes the largest in the left lower precarinal region measuring 1.4 cm in short axis on image 43. The heart is normal in size. There is no pericardial effusion. Triple vessel coronary artery calcific atherosclerosis. Aortic calcifications. UPPER ABDOMEN: Unremarkable. Adrenal glands are unremarkable. BONES: Redemonstration of lytic metastasis in T5 vertebral body extends into the left T5 neuroforamina and adjacent anterolateral left epidural space. Is also a small lytic lesion in the posterior endplate of T3. SOFT TISSUES: Unremarkable. Air in the left subclavian artery is due to injection. IMPRESSION: Mild interval increase in size of a invasive mass in left lung apex with encasement of aortic arch branches. Osteolytic vertebral metastasis. Signed by: Dr. Jennifer Pereyra M.D. on 05/29/2020 4:09 PM
--- NOTE | 2020-05-29 19:53 | NUR ---
RECEIVED PT IN BED .NO ACUTE DISTRESS NOTED ,CALL LIGHT WITH IN REACH ,CONTINUE TO MONITOR
[2020-05-29] MEDS: FINASTERIDE 5 MG TAB PO SCH (21:13)
[2020-05-29] MEDS: TERAZOSIN HCL 5 MG CAP PO SCH (21:13)
[2020-05-29] MEDS ORDERED: ALBUTEROL/IPRATROPIUM 3 ML NEB NEB PRN (23:30)
[2020-05-30] VITALS (8 sets, daily range): BP systolic 123–152; BP diastolic 66–91
--- NOTE | 2020-05-30 01:11 | History and Physical ---
PRIMARY CARE PHYSICIAN: Chapin Lee MD. CONSULTING PHYSICIANS: 1. Adwoa Arcos MD. 2. Outpatient oncologist, Dr. Arcos. 3. Outpatient urologist, Dr. Brooks Smith. CHIEF COMPLAINT: Near syncope. HISTORY OF PRESENT ILLNESS: The patient is a 70-year-old male, who presented to the emergency department with hypotension, tachycardia, and generalized malaise/weakness. Per the emergency department physician documentation, there was concern for severe sepsis with WBCs 26.02. Serum bicarbonate 21 and lactic acid 2.9 with an unclear source for the infection. Blood culture and sensitivity x2 collected in the ER with results now pending and the repeat lactic acid was 0.7. The patient reported receiving a second round of chemotherapy today and his blood pressure was very low, and he nearly passed out. There were plans initially for 2 rounds of chemo, then his oncologist increased it to 4 rounds of chemo. However, he states he will stop it 2 rounds for quality of life and he prefers DNR status. 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 PAST SURGICAL HISTORY: Lithotripsy, tonsillectomy, adenoidectomy, hernia repair, back surgery, PCI with 4 cardiac stents one month prior to arrival. Upper teeth have been extracted. UroLift. FAMILY HISTORY: Mother had hypotension. Father had massive stroke, was obese. Maternal grandfather had 5 MIs. Maternal aunt had leukemia. 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 He smoked cigarettes from age [age] half a pack a day for 47 years for a total of 23.5 pack years, then expensive cigars for 5 years, usually smoking 1-1/2 to 2 cigars a day and after that, he switched to vaping about 5 years ago and did vaping for about 3 years. Drink alcohol on occasion. He smoked marijuana when he was young. ALLERGIES: HYDROCODONE/NORCO AND BENADRYL. MEDICATIONS: See medication reconciliation. REVIEW OF SYSTEMS: CONSTITUTIONAL: The patient denies any recent weight loss. In fact, he has had a good appetite. He gained 3 pounds in the past 3 weeks, drinking protein drinks. HEENT: He denies any specific problems with eyes, ears, nose, throat. RESPIRATORY: He has chronic shortness of breath, especially dyspnea on exertion. He has been coughing up a minimal amount of yellow green phlegm in the past few months. GENITOURINARY: He has some difficulty urinating due to the enlarged prostate, but states that is nothing new and this is a chronic issue. PSYCHIATRIC: He lost a daughter in a car accident. Since then, has taken citalopram for anxiety. SKIN: He denies any problems with rash or skin issues. CARDIOVASCULAR: No chest pain or palpitations. GASTROINTESTINAL: He has had lots of gas. He did have nausea and vomiting with chemotherapy earlier this week, however, none in the last few days. He started eating solid foods again yesterday on 05/28. His bowel movement was last Sunday. MUSCULOSKELETAL: No complaints regarding musculoskeletal, such as joint pain or muscle pain, simply generalized weakness. No complaints of headache or dizziness. No bleeding or bruising anywhere. He is currently off his blood thinners. He was taking aspirin, Plavix, and Eliquis. PHYSICAL EXAMINATION: VITAL SIGNS: Per telemetry in sinus bradycardia with a heart rate of 63. Temperature 97.8, heart rate 63, blood pressure 153/80, respirations 20, oxygen saturation 98% on room air. Height 5 feet 8 inches, weight 182 pounds. BMI is 27.66. GENERAL: No acute distress. Supine, relaxed. LUNGS: Diminished in the bases. No acute dyspnea. Respirations relaxed, unlabored, not on supplemental oxygen. HEENT: EOMI. He has a raspy voice. NECK: Supple. No JVD. No thyromegaly or lymphadenopathy. CARDIOVASCULAR: Regular rate and rhythm. No murmur. ABDOMEN: Bowel sounds positive. Soft, nontender. EXTREMITIES: No pitting edema. No clubbing, cyanosis, or marked swelling or signs of DVT. NEUROLOGICAL: GCS 15. Nonfocal. LABORATORY DATA: WBCs 14.6 (26), hemoglobin 11.4, hematocrit 32.3, platelets 256, neutrophils 76.5. Sodium 136, potassium 4.3, chloride 108, CO2 20 (21), BUN 9, creatinine 0.61, estimated GFR greater than 60. Phosphorus 2.2, magnesium 1.7. Cardiac enzymes were negative x3. On 05/28 COVID test still pending. Blood cultures x2 are pending. Total bilirubin 0.7, AST 20, ALT 25, alkaline phosphatase 84. Urinalysis slightly cloudy, specific gravity 1.025, 1+ protein. IMAGING: Chest x-ray yesterday showed unchanged left hemidiaphragmatic elevation. No focal pneumonia or pulmonary edema. Upper mediastinal mass better visualized on prior CT. CT of the chest done today 05/29 showed mild interval increase in size of an invasive mass in the left lung apex with encasement of aortic arch branches, osteolytic vertebral metastasis. ASSESSMENT AND PLAN: 1. Severe sepsis, likely due to #2. WBCs have improved to 14.6 from 26. The patient received Rocephin IV once in the ER as well as Zosyn and vancomycin. We will continue vancomycin and Zosyn for now. Vancomycin 1 g IV daily and Zosyn 3.375 g IV every 8 hours. Most recent lactic acid level was 0.7. Renal function within normal limits with BUN 9, creatinine 0.61, estimated GFR greater than 60. Thus, no IV fluids. Given the patient's heavy history of smoking and asbestosis, we will go ahead and order a sputum Gram stain, culture and sensitivity, and his respiratory to induce the sputum for collection. Follow up on blood cultures. 2. 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 Oncology following. The patient does not want full 4 chemotherapy treatments. He states he will stop at 2 chemotherapy treatments, in-turn enjoy what time he has left. DNR status preferred. 3. Controlled hypertension. Blood pressure 153/80. Resume home metoprolol succinate. Monitor. 4. Coronary artery disease, history of PCI with cardiac stents x4. Monitor for any signs of ACS. Continue home dose of Ranexa, beta-fox. 5. Hyperlipidemia. Resume atorvastatin. 6. Chronic anxiety. Resume citalopram. 7. Acute hypomagnesemia. Magnesium level 1.7, repleted with 1 g of magnesium sulfate. 8. Acute hypophosphatemia. Phosphorus level 2.2, repleted with 10 millimoles of sodium phosphate. 9. Prophylaxis. IV Pepcid and SCDs. Billing code 32634. Time spent 70 minutes. Dictated by Tyree Willis, HARVEY MD JORGE Nation/SADIQ /[id number]
[2020-05-30] MEDS: MORPHINE SULFATE 30 MG TAB ER PO SCH ×4 (01:36→18:52)
[2020-05-30] MEDS: PIPER-TAZ 3.375 GM 50 ML IV SCH ×3 (05:46→21:28)
--- NOTE | 2020-05-30 06:27 | NUR ---
PT RESTING ,GIVEN PAIN MEDICATION ORDERED .CALL LIGHT WITH IN REACH ,CONTINUE TO MONITOR
[2020-05-30 06:38] LABS: BASOPHILS # (AUTO) 0.1 (0.0-0.1); BASOPHILS % 0.8 % (0.0-1.0); EOSINOPHILS # (AUTO) 0.1 (0.0-0.4); HEMATOCRIT 34.6 % (38.2-49.6); LYMPHOCYTES # (AUTO) 2.9 (1.0-3.2); LYMPHOCYTES % 40.6 % (18.0-39.1); MEAN CORPUSCULAR HEMOGLOBIN 31.9 pg (28-32); MEAN CORPUSCULAR HGB CONC 34.7 g/dL (31-35); MONOCYTES # (AUTO) 0.4 (0.2-0.8); MONOCYTES % 5.5 % (4.4-11.3); NEUTROPHILS # (AUTO) 3.6 (2.1-6.9); NEUTROPHILS % 50.7 % (38.7-80.0); PLATELET COUNT 265 x10e3/uL (140-360); RED BLOOD COUNT 3.76 x10e6/uL (4.3-5.7); RED CELL DISTRIBUTION WIDTH 14.1 % (11.7-14.4)
[2020-05-30 06:51] LABS: ANION GAP 12.6 mmol/L (8-16); BLOOD UREA NITROGEN 8 mg/dL (7-26); BUN/CREATININE RATIO 12 (6-25); CALCIUM 7.9 mg/dL (8.4-10.2); CARBON DIOXIDE 21 mmol/L (22-29); CHLORIDE 105 mmol/L (98-107); CREATININE, SERUM 0.68 mg/dL (0.72-1.25); EST GLOMERULAR FILTRATION RATE > 60 ML/MIN (60-); GLUCOSE 84 mg/dL (74-118); MAGNESIUM 1.7 MG/DL (1.3-2.1); PHOSPHORUS 2.6 MG/DL (2.3-4.7); POTASSIUM 4.6 mmol/L (3.5-5.1); SODIUM 134 mmol/L (136-145)
--- NOTE | 2020-05-30 07:08 | NUR ---
BEDSIDE REPORT GIVEN TO THE ONCOMING NURSE
[2020-05-30] MEDS: ALBUTEROL/IPRATROPIUM 3 ML NEB NEB SCH ×2 (07:15→14:40)
--- NOTE | 2020-05-30 08:17 | NUR ---
The pt was received at shift change from the off-going nurse and denies pain or discomfort.
[2020-05-30] MEDS ORDERED: MAGNESIUM SULFATE 2GM/50ML 50 ML IV ONE (08:45)
[2020-05-30] MEDS ORDERED: RANOLAZINE 500 MG TABSR PO SCH (09:00)
[2020-05-30] MEDS ORDERED: ASCORBIC ACID 500 MG TAB PO SCH (09:00)
[2020-05-30] MEDS ORDERED: NON-FORMULARY MEDICATION (Citalopram Hydrobromide (Citalopram Hbr) 40 MG) PO SCH (09:00)
[2020-05-30] MEDS ORDERED: MULTIVITAMIN PO SCH (09:00)
[2020-05-30] MEDS: LORATADINE 10 MG TAB PO SCH (09:25)
[2020-05-30] MEDS: ATORVASTATIN 20 MG TAB PO SCH (09:25)
[2020-05-30] MEDS: CITALOPRAM HYDROBROMIDE 20 MG TAB PO SCH (09:25)
[2020-05-30] MEDS: MULTIVITAMINS/MINERALS TAB PO SCH (09:30)
[2020-05-30] MEDS: LISINOPRIL 10 MG TAB PO SCH (09:44)
[2020-05-30] MEDS: METOPROLOL SUCCINATE 25 MG TAB XL PO SCH (09:45)
[2020-05-30] MEDS: RANOLAZINE 500 MG TABSR PO SCH ×2 (09:45→17:01)
[2020-05-30] MEDS: ASCORBIC ACID 500 MG TAB PO SCH (09:45)
[2020-05-30 10:38] LABS: CREATINE KINASE 36 IU/L (30-200)
--- NOTE | 2020-05-30 20:26 | NUR ---
RECEIVED PT IN BED GETTING NEB TX.NO ACUTE DISTRESS NOTED ,CALL LIGHT WITH IN REACH ,CONTINUE TO MONITOR
[2020-05-30] MEDS ORDERED: TERAZOSIN HCL 5 MG CAP PO SCH (21:00)
[2020-05-30] MEDS ORDERED: FINASTERIDE 5 MG TAB PO SCH (21:00)
--- NOTE | 2020-05-30 21:10 | Consultation ---
DATE OF CONSULTATION: Pulmonary Critical Care Consultation Note CHIEF COMPLAINT: Lightheadedness, near syncope and leukocytosis in a patient with lung cancer. HISTORY OF PRESENT ILLNESS: The patient is a 70-year-old man. He has a history of stage IV bronchogenic carcinoma. He is receiving some chemotherapy through Dr. Arcos's office. He presented to the emergency department with lightheadedness. He felt as if he was going to pass out. He was found to have tachycardia along with malaise and hypotension. He also had an elevated white blood cell count. The patient received IV fluids and was started on antibiotics. He now notes some improvement in his symptoms. PAST SURGICAL HISTORY: 1. Status post adenoidectomy. 2. Status post hernia repair. 3. Status post back surgery. 4. Prior cardiac stents. 5. Lithotripsy. PAST MEDICAL HISTORY: 1. Lung cancer as noted above. 2. Hypertension. 3. Benign prostatic hypertrophy. FAMILY HISTORY: History of strokes and cancer. SOCIAL HISTORY: The patient has an exposure to asbestos. He had also been a smoker. He is not an active drinker. ALLERGIES: THE PATIENT IS ALLERGIC TO BENADRYL. REVIEW OF SYSTEMS: He has no fevers. He is not complaining of headache. He has no neck pain. He is not having any chest pain. He does not complain of any difficulty breathing. He has no nausea or vomiting. He has no leg swelling. PHYSICAL EXAMINATION: VITAL SIGNS: The patient is afebrile. The blood pressure is 130/75, saturation is 99% on room air. Pulse is 61. HEENT: Shows no facial swelling or erythema. The oropharynx is normal. LYMPHATIC: Shows no submandibular, cervical or supraclavicular adenopathy. CARDIAC: Reveals regular rate and rhythm with normal S1 and S2. LUNGS: Auscultation of lungs reveals crackles at the bases. There is no wheezing. ABDOMEN: Soft and nontender. There is no rebound or guarding. EXTREMITIES: Shows no leg edema or calf tenderness. There is no cyanosis or clubbing. SKIN: Shows no rashes. NEUROLOGICAL: Shows no focal abnormalities. LABORATORY DATA: White blood cell count is 7.15 and hemoglobin is 12. The platelet count is 365. The BUN to creatinine ratio is normal. The other electrolytes are within normal limits. IMPRESSION: 1. Stage IV metastatic bronchogenic carcinoma. 2. Leukocytosis with sepsis, present on admission with unclear source. 3. Hypertension. 4. Coronary artery disease. 5. Hyperlipidemia. PLAN: 1. Switch to oral antibiotics and complete course as an outpatient. 2. Okay for discharge home tomorrow. 3. Follow up with Oncology. MD VIRGILIO Moon/SADIQ /[id number]
[2020-05-30] MEDS: FINASTERIDE 5 MG TAB PO SCH (21:28)
[2020-05-30] MEDS: TERAZOSIN HCL 5 MG CAP PO SCH (21:28)
[2020-05-30] MEDS: VANCOMYCIN 1GM/NS 250 ML 250 ML IV SCH (23:45)
[2020-05-31] VITALS: BP 114/67
[2020-05-31 04:00] VITALS: BP 108/65
[2020-05-31 05:28] LABS: BASOPHILS # (AUTO) 0.1 (0.0-0.1); EOSINOPHILS # (AUTO) 0.1 (0.0-0.4); EOSINOPHILS % 1.3 % (0.0-6.0); HEMATOCRIT 32.5 % (38.2-49.6); HEMOGLOBIN 11.3 g/dL (14.0-18.0); LYMPHOCYTES # (AUTO) 3.1 (1.0-3.2); LYMPHOCYTES % 40.1 % (18.0-39.1); MEAN CORPUSCULAR HGB CONC 34.8 g/dL (31-35); MEAN CORPUSCULAR VOLUME 92.1 fL (81-99); MONOCYTES # (AUTO) 0.9 (0.2-0.8); MONOCYTES % 11.6 % (4.4-11.3); NEUTROPHILS # (AUTO) 3.5 (2.1-6.9); NEUTROPHILS % 45.6 % (38.7-80.0); PLATELET COUNT 219 x10e3/uL (140-360); RED BLOOD COUNT 3.53 x10e6/uL (4.3-5.7)
[2020-05-31 05:56] LABS: ANION GAP 10.8 mmol/L (8-16); BLOOD UREA NITROGEN 8 mg/dL (7-26); BUN/CREATININE RATIO 11 (6-25); CALCIUM 8.4 mg/dL (8.4-10.2); CARBON DIOXIDE 24 mmol/L (22-29); CHLORIDE 104 mmol/L (98-107); EST GLOMERULAR FILTRATION RATE > 60 ML/MIN (60-); GLUCOSE 93 mg/dL (74-118); MAGNESIUM 1.7 MG/DL (1.3-2.1); PHOSPHORUS 3.6 MG/DL (2.3-4.7); POTASSIUM 4.8 mmol/L (3.5-5.1); SODIUM 134 mmol/L (136-145)
[2020-05-31] MEDS: PIPER-TAZ 3.375 GM 50 ML IV SCH (06:10)
[2020-05-31] MEDS: MORPHINE SULFATE 30 MG TAB ER PO SCH (06:10)
--- NOTE | 2020-05-31 06:17 | NUR ---
PT HAD SHOWER ,C/O CHRISTOPHER GIVEN ORDERED PAIN MEDICATION ,PT RESTING ,CALL LIGHT WITH IN REACH ,CONTINUE TO MONITOR
[2020-05-31] MEDS: ALBUTEROL/IPRATROPIUM 3 ML NEB NEB SCH (06:55)
--- NOTE | 2020-05-31 07:22 | NUR ---
BEDSIDE REPORT GIVEN TO THE ONCOMING NURSE
[2020-05-31 08:02] VITALS: BP 108/65
[2020-05-31 08:07] VITALS: BP 127/79
[2020-05-31] MEDS ORDERED: MAGNESIUM SULFATE 2GM/50ML 50 ML IV ONE (09:30)
[2020-05-31] MEDS: CITALOPRAM HYDROBROMIDE 20 MG TAB PO SCH (09:39)
[2020-05-31] MEDS: LISINOPRIL 10 MG TAB PO SCH (09:39)
[2020-05-31] MEDS: ATORVASTATIN 20 MG TAB PO SCH (09:39)
[2020-05-31] MEDS: RANOLAZINE 500 MG TABSR PO SCH (09:39)
[2020-05-31] MEDS: MULTIVITAMINS/MINERALS TAB PO SCH (09:39)
[2020-05-31] MEDS: LORATADINE 10 MG TAB PO SCH (09:39)
[2020-05-31] MEDS: METOPROLOL SUCCINATE 25 MG TAB XL PO SCH (09:40)
[2020-05-31] MEDS: ASCORBIC ACID 500 MG TAB PO SCH (09:40)
--- NOTE | 2020-05-31 10:10 | NUR ---
IMM letter delivered and explained to pt. He verbalized understanding, states he's ready to go home. Signed copy placed in chart. Copy to pt.
[2020-05-31] MEDS ORDERED: LISINOPRIL10 MG PO (10:19)
[2020-05-31] MEDS ORDERED: Albuterol/Ipratropium Nebulize NEB (10:19)
[2020-05-31] MEDS ORDERED: MAGNESIUM OXID400 MG PO (11:07)
[2020-05-31 12:00] VITALS: BP 147/79
--- NOTE | 2020-05-31 12:11 | NUR ---
Discharge instructions and prescriptions given to the patient, he verbalized understanding. IV to the right as was removed with tip intact.
--- NOTE | 2020-05-31 12:14 | Progress Note ---
DATE: 05/30/2020 CONSULTING PHYSICIANS: 1. Dr. Bubba Davila with Oncology. 2. Dr. Ford De La Rosa with Pulmonology. SUBJECTIVE: The patient is lying supine in bed. No new complaints. The patient came in with lightheadedness and near syncope as well as leukocytosis with underlying history of lung cancer. He has been using incentive spirometer, specific technique has been reinforced. The patient is encouraged to use hourly while awake. He has been coughing up a minimal amount of yellow-green phlegm and he states that the neb treatments really helped clear this out, still passing gas, tolerating his diet well. OBJECTIVE: VITAL SIGNS: From today, temperature 98.6, heart rate 62, blood pressure 123/66, respirations 20, and oxygen saturation 99%. GENERAL: No acute distress. LUNGS: Improvement in bibasilar crackles. No wheezing. No supplemental oxygen. NECK: Supple. No JVD. CARDIOVASCULAR: Regular rate and rhythm. No murmur. ABDOMEN: Bowel sounds positive. Soft, nontender. No guarding. EXTREMITIES: Without pitting edema. No clubbing, cyanosis, or marked swelling. NEUROLOGICAL: GCS 15. Nonfocal. LABORATORY DATA: WBC 7.15, hemoglobin 12, hematocrit 34.6, and platelets 265. Sodium 134, potassium 4.6, chloride 105, CO2 of 21, anion gap 12.6, BUN 8, creatinine 0.68, estimated GFR greater than 60, glucose 84, calcium 7.9, phosphorus 2.6, and magnesium 1.7. Creatine kinase 36, CK-MB 1, troponin I less than 0.001. No new growth from blood cultures. No new imaging studies. ASSESSMENT AND PLAN: 1. Severe sepsis, present on admission with unclear source. WBCs have improved to 7.15 from 26 on admission. Zosyn and vancomycin, continue. Creatinine 0.68 today while on vancomycin. Sputum Gram stain culture and sensitivity were not collected. WBC within normal limits. Thus, we will not press for this. 2. Stage IV metastatic bronchogenic carcinoma. This is located in the apex of the left lung with osteolytic vertebral metastasis. Oncology following. Discussed with the patient. He states that Oncology had initially wanted for chemotherapy treatments and then he was going to stop with that too. However, he will no longer be needing chemotherapy and we will instead be switched to radiation as the chemotherapy has been working well as evidenced by the CT of the chest. 3. Controlled hypertension. Blood pressure 123/66. Monitor. Continue same. 4. Coronary artery disease, history of PCI with cardiac stents x4. Monitor for any signs of ACS. Continue home dose of Ranexa and beta-fox. 5. Hyperlipidemia. Continue atorvastatin. 6. Chronic anxiety. Continue citalopram. 7. Acute hypomagnesemia. Magnesium level 1.7, repleted with 2 g of magnesium sulfate today. Phosphorus level 2.6 (2.2). Acute hypophosphatemia, resolved. 8. Prophylaxis. IV Pepcid and SCDs. Billing code 46129. Time spent 35 minutes. Dictated by Tyree Willis NP MD SUSAN NationP/BUCKL /[id number]
--- NOTE | 2020-05-31 13:23 | Discharge Summary ---
PRIMARY CARE PHYSICIAN: Chapin Lee MD. CONSULTING PHYSICIANS: 1. Dr. Bubba Arcos with Oncology. 2. Dr. Ford De La Rosa with Pulmonology. 3. Outpatient urologist, Dr. Brooks Smith. CHIEF COMPLAINT: Near syncope. HISTORY OF PRESENT ILLNESS: The patient is a 70-year-old male, who presented to the emergency department with hypotension, tachycardia, and generalized malaise/weakness. He was found to be septic with WBCs 26.02 with unclear source. Serum bicarbonate 21, and lactic acid 2.9. Blood cultures x2 were collected on 05/28/2020, and preliminary results show no growth after 48 hours. The patient reported receiving a 2nd round of chemotherapy on the day of admission 05/28/2020, and his blood pressure was very low, causing him to nearly pass out. There was no syncope. During his initial interview with me, he stated he prefer DNR status given his diagnosis. Please see history and physical for past medical, surgical, family, social history. ALLERGIES: HE HAS AN ALLERGY TO HYDROCODONE AND BENADRYL. ADMITTING DIAGNOSES: 1. Severe sepsis with unclear source. 2. 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 3. Controlled hypertension. 4. Coronary artery disease, history of PCI with cardiac stents x4. 5. Hyperlipidemia. 6. Chronic anxiety. 7. Acute hypomagnesemia. 8. Acute hypophosphatemia. DISCHARGE DIAGNOSES: 1. Severe sepsis, present on admission with unclear source. 2. Stage IV metastatic bronchogenic carcinoma. 3. Controlled hypertension. 4. Coronary artery disease, history of PCI with cardiac stents x4. 5. Hyperlipidemia. 6. Chronic anxiety. 7. Acute hypomagnesemia, mild, somewhat refractory. 8. Acute hypophosphatemia, resolved. Per discussions with the patient, his oncologist had told him that the plan was for four chemotherapy treatments. His initial chest x-ray on 05/28 showed unchanged left hemidiaphragmatic elevation. No focal pneumonia or pulmonary edema. Upper mediastinal mass better visualized on prior CT. On 05/29, he had a CT of the chest, which per official report from the interpreting radiologist showed mild interval increase in size of an invasive mass in the left lung apex with encasement of the aortic arch branches. Left upper lobe apical medial mass increased in size, previously estimated 5.9 x 4.8 cm, currently 6.6 x 5.9 cm, osteolytic vertebral metastasis. As there has been minimal increase in size of the mass, the patient states that he will no longer have to undergo chemotherapy and will start radiation. The patient is to follow up with Dr. Arcos as directed. His white blood cell count improved considerably from 26 and today is 7.64, hemoglobin 11.3, hematocrit 32.5, platelets 219. Sodium 134, potassium 4.8, chloride 104, CO2 of 24, anion gap 10.8, BUN 8, creatinine 0.70, estimated GFR greater than 60, glucose 93, calcium 8.4, phosphorus 3.6, magnesium 1.7. Troponin I has been less than 0.001 x4 this visit. His coronavirus PCR was negative on 05/28. His hypomagnesemia was treated with 1 g initially but did not improve. Thus, he was given 2 g of magnesium sulfate without any improvement. His magnesium remained 1.7 for three straight days despite repletion. Thus, I will give him another 2 g of magnesium sulfate today and put him on magnesium oxide 400 mg p.o. b.i.d. at home. His phosphorus had been low at 2.2 on 05/29. He is given sodium phosphate, which improved the level to 2.6. Today his phosphorus is within normal limits at 3.6. The patient able to cough up considerable amount of phlegm and stated that neb treatments helped considerably. Thus, we will send him home with a prescription for DuoNebs every 4 hours p.r.n., quantity 84 doses. His blood pressure on admission was 84/57. Later on, he was hypertensive 164/79 and then on 05/30, 152/91. He was put on lisinopril 10 mg p.o. daily and today his blood pressure is 127/79. Thus, we will send him home with a prescription for lisinopril. Continue other home medications. The patient will be discharged today. Dr. De La Rosa agrees and listed this in his note dated 05/30. Cardiac diet. Activity level as tolerated. Follow up with PCP in 1 to 2 weeks. Follow up with other consultants p.r.n. as directed Dictated by Tyree Willis, [employer]NA[employer]ELOPMENT MD JORGE Nation/BUCKL /[id number]
== END 2020-05-31 12:30 | disposition home or self-care (01) | DRG 872 ==
LOC: ER 11:10 → ERHOLD 16:06 → MED/SURG2 17:41
PROVIDERS: ADMIT Internal Medicine; ATTEND Internal Medicine
DX: A41.9 Sepsis, unspecified organism (principal); C34.92 Malignant neoplasm of unspecified part of left bronchus or lung; E87.2 Acidosis; C79.51 Secondary malignant neoplasm of bone; R65.20 Severe sepsis without septic shock; I10 Essential (primary) hypertension; I25.10 Atherosclerotic heart disease of native coronary artery without angina pectoris; Z95.5 Presence of coronary angioplasty implant and graft; E83.41 Hypermagnesemia; E83.39 Other disorders of phosphorus metabolism; D72.823 Leukemoid reaction; E83.42 Hypomagnesemia; J61 Pneumoconiosis due to asbestos and other mineral fibers; Z87.891 Personal history of nicotine dependence; F41.9 Anxiety disorder, unspecified
CPT/HCPCS: 36415; 71045; 71260; 80048; 80053; 81001; 82550; 82553; 83605; 83735; 84100; 84484; 85025; 87040; 93005; 94640; 99284; J0696; J2543; J3370; J3475; J7030; J7050; Q9967; U0002

== ENCOUNTER 2020-07-07 04:56 | Inpatient (IN) | payer MEDICARE, OTHER ==
[~2020-07-07] VITALS: Ht 172.7 cm; Wt 79.4 kg
[~2020-07-07 04:56] MED LIST changes: +Albuterol/Ipratropium Nebulize NEB; +MAGNESIUM OXID400 MG PO; +MS CONTIN30 MG PO
[2020-07-07] MEDS ORDERED: CEFEPIME 2 GM/NS 0.9% 100 ML 100 ML IV ONE ×2 (05:15→05:24)
[2020-07-07] MEDS ORDERED: SODIUM CHLORIDE 0.9% 1000ML 1,000 ML IV ONE (05:15)
[2020-07-07] MEDS ORDERED: SODIUM CHLORIDE 0.9% 1000ML 1,000 ML ONE (05:20)
--- OUTSIDE RECORDS SUMMARY | 2020-07-07 05:29 | XMS REPORT | Continuity of Care Document ---
Author Author [facility] JOSEPH Venegas echoBase Address Unknown Phone Unavailable Care Team Providers Care Director Of Business Systems Name Role Phone [email or web address] Unavailable Un available Problems Problem Status Onset Date Classification Date Reported Comments Source Carpal tunnel syndrome, left upper limb 07/31/2018 02/11/2019 [facility] HEART CATH Active 03/07/2018 [facility] CAD(CORONARY ARTERY DISEASE) A ctive 03/07/2018 [facility] 490 - BRONCHITIS NOS Active 08/29/2012 [facility] Sylvia Carpal tunnel syndrome, right upper limb 02/11/2019 [facility] Other cervical disc degeneration, unspec ified cervical region 02/11/2019 [facility] Osteophyte, vertebrae 02/11/2019 [facility] Other specific arthropathies, 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, vertebrae 02/11/2019 [facility] ATHSCL HEART DISEASE OF [place] CORONARY Active [facility] Medications Medication Details Route Status Patient Instructions Ordering Provider Order Date Source metoprolol 25 mg oral tablet, extended release 25 mg = 1 tab, PO, Daily, # 30 tab, 0 Refill(s), Pharmacy: [place] [address] Active 03/13/2018 [facility] clopidogrel 75 mg oral tablet 75 mg = 1 tab, PO, Daily, # 30 tab, 0 Refill(s), Pharmacy: [place] [address] Active 03/13/2018 [facility] atorvastatin 40 mg oral tablet 40 mg = 1 tab, PO, Daily, # 30 tab, 0 Refill(s), Pharmacy: [place] [address] Active 03/13/2018 [facility] Fentanyl Notes: (Same as: Subl imaze) Preservative free. No Longer Active 03/13/2018 [facility] Hydralazine Notes: (Same as: A presoline) Push over 5 minutes No Longer Active 03/12/2018 [facility] Morphine Notes: (Same as:MORPh ine Sulfate) No Longer Active 03/12/2018 [facility] Nitroglycerin Notes: (Same as: Nitroquick, Nitrostat) "Do Not Crush" Sublingual tablet No Longer Active 03/12/2018 [facility] Sodium Chloride 0.9% IV 750 mL 750 mL, Rate: 75 ml/hr, Infuse over: 10 hr, Route: IV, Dosing Weight 101.3 kg, Total Volume: 750, Start date: 03/12/18 12:36:00 CDT, Duration: 10 hr, Stop date: 03/12/18 22:35:00 CDT, 2.24, m2 Inactive 03/12/2018 [facility] Mucinex 1200, PO, Daily, PRN A llergies, 0 Refill(s) No Longer Active 03/12/2018 [facility] Lisinopril Notes: (Same as: Pr inivil, Zestril) No Longer Active 03/12/2018 [facility] Citalopram 20 mg, 2 tab, Route : PO, Drug form: TAB, Daily, Dosing Weight 98.8, kg, Start date: 03/12/18 9:00:00 CDT, Duration: 30 day, Stop date: 04/10/18 9:00:00 CDT No Longer Active 03/12/2018 [facility] atorvastatin Notes: (Same as: Lipitor) No Longer Active 03/12/2018 [facility] Aspirin 81 MG Chewable Tablet 81 mg, 1 tab, Route: PO, Drug form: CHEWTAB, Daily, Dosing Weight 98.8, kg, Start date: 03/12/18 9:00:00 CDT, Duration: 30 day, Stop date: 04/10/18 9:00:00 CDT No Longer Active 03/12/2018 [facility] clopidogrel Notes: (Same As: P lavix) No Longer Active 03/12/2018 [facility] Aspirin 81 MG Enteric Coated Tablet Notes: Do not crush or chew. (Same As: Ecotrin) No Longer Active 03/12/2018 [facility] metoprolol extended release No hiral: (Same as: Toprol XL) Do Not Crush No Longer Active 03/12/2018 [facility] Terazosin Notes: (Same As: Hyt rin) No Longer Active 03/12/2018 [facility] Famotidine Notes: (Same as: Pe pcid) No Longer Active 03/12/2018 [facility] heparin additive 25,000 unit [12 unit/kg /hr] + Premix Diluent Dextrose 5% 500 mL 500 mL, Rate: 19.01 ml/hr, Infuse over: 26.3 hr, Route: IV, Dosing Weight 79.2 kg, Total Volume: 500 mL, Start date: 03/11/18 17:52:00 CDT, Duration: 30 day, Stop date: 04/10/18 17:51:00 CDT, 1.98, m2 No Longer Active 03/11/2018 [facility] Heparin 30 unit/kg Bolus (Heparin Dosing Weight) Route: IVP, PRN, 2,400 unit, 2.4 mL, Drug form: INJ, PRN, Heparin Protocol, Start date: 03/11/18 17:52:00 CDT Stop date: 04/10/18 17:51:00 CDT, 30 day No Longer Active 03/11/2018 [facility] Heparin 60 unit/kg Bolus (Heparin Dosing Weight) Route: IVP, PRN, 4,800 unit, 4.8 mL, Drug form: INJ, PRN, Heparin Protocol, Start date: 03/11/18 17:52:00 CDT Stop date: 04/10/18 17:51:00 CDT, 30 day No Longer Active 03/11/2018 [facility] Alprazolam 0.5 MG Oral Tablet 0.5 mg, 1 tab, Route: PO, ONCE, Dosing Weight 98.8, kg, Start date: 03/11/18 17:35:00 CDT, Stop date: 03/11/18 17:35:00 CDT Inactive 03/11/2018 [facility] Clotrimazole 10 MG/ML Topical Cream [Lotrimin] Notes: For external use only. (Same As: Lotrimin AF, Mycelex) No Longer Active 03/11/2018 [facility] Ondansetron Notes: (Same as: Z conchita) No Longer Active 03/11/2018 [facility] Morphine 4 mg, 2 mL, Route: IV P, Drug form: SOLN, Q2H, Dosing Weight 98.8, kg, PRN Pain Score 7-10, Start date: 03/11/18 16:20:00 CDT, Duration: 30 day, Stop date: 04/10/18 16:19:00 CDT No Longer Active 03/11/2018 [facility] Nitroglycerin Notes: (Same as: Nitroquick, Nitrostat) "Do Not Crush" Sublingual tablet No Longer Active 03/11/2018 [facility] Sodium Chloride 0.9% IV 750 mL 750 mL, Rate: 75 ml/hr, Infuse over: 10 hr, Route: IV, Dosing Weight 98.8 kg, Total Volume: 750, Start date: 03/11/18 16:20:00 CDT, Duration: 10 hr, Stop date: 03/12/18 2:19:00 CDT, 2.21, m2 No Longer Active 03/11/2018 [facility] prasugrel 60 mg, Route: PO, Dr ug form: TAB, ONCE, Dosing Weight 98.8, kg, Priority: NOW, Start date: 03/11/18 16:19:00 CDT, Stop date: 03/11/18 16:19:00 CDT Inactive 03/11/2018 [facility] atorvastatin PO, Daily, 0 Refi ll(s) No Longer Active 03/11/2018 [facility] lisinopril 20 mg oral tablet 2 0 mg = 1 tab, PO, Daily, 0 Refill(s) Active 03/11/2018 [facility] Clotrimazole 10 MG/ML Topical Cream [Lotrimin] 1 appl, TOP, BID, 0 Refill(s) Active 03/11/2018 [facility] Aspirin 81 MG Chewable Tablet 81 mg = 1 tab, PO, Daily, tab, 0 Refill(s) Active 03/11/2018 [facility] terazosin 10 mg oral capsule 1 0 mg = 1 cap, PO, Bedtime, 0 Refill(s) Active 03/11/2018 [facility] citalopram 40 mg oral tablet 2 0 mg = 0.5 tab, PO, Daily, 0 Refill(s) Active 03/11/2018 [facility] Alprazolam 0.5 MG Oral Tablet Notes: With food or milk (Same as: Xanax) Inactive 03/11/2018 [facility] Allergies, Adverse Reactions, Alerts Substance Category Reaction Severity Reaction type Status Date Reported Comments Source Vicodin Assertion Drug allergy Active [facility] Benadryl Assertion Vicodin Drug allergy Active [facility] Immunizations Immunization Date Given Site Status Last Updated Comments Source pneumococcal 13-valent vaccine 03/13/2018 Left Gluteus Medius completed Brandon Betzy theast, [facility] [place] Results Order Name Results Value Reference Range Date Interpretation Comments Source ELECTROLYTES AGAP 9.7 10.0 - 20.0 03/13/2018 [facility] ELECTROLYTES eGFR 53 03/13/2018 Result Comment: [...] should be multiplied by the estimated BMI. [facility] ELECTROLYTES Sodium Lvl 138 135 - 145 03/13/2018 [facility] ELECTROLYTES CO2 24 24 - 32 03/13/2018 [facility] ELECTROLYTES Potassium Lvl 3.7 3.5 - 5.1 03/13/2018 [facility] ELECTROLYTES Chloride Lvl 108 95 - 109 03/13/2018 [facility] ELECTROLYTES Calcium Lvl 7.8 8.5 - 10.5 03/13/2018 [facility] ELECTROLYTES Glucose Lvl 118 70 - 99 03/13/2018 [facility] ELECTROLYTES BUN 16 7 - 22 03/13/2018 [facility] ELECTROLYTES Creatinine Lvl 1.0 7 0.50 - 1.40 03/13/2018 [facility] HEMATOLOGY Platelet 275 133 - 450 03/13/2018 [facility] HEMATOLOGY RDW 13.1 11.5 - 14.5 03/13/2018 [facility] HEMATOLOGY MPV 7.8 7.4 - 10.4 03/13/2018 [facility] HEMATOLOGY MCHC 36.0 32.0 - 36.0 03/13/2018 [facility] HEMATOLOGY MCV 95.3 80.0 - 98.0 03/13/2018 [facility] MCH 34.3 27.0 - 31.0 03/13/2018 [facility] HEMATOLOGY WBC 11.4 3.7 - 10.4 03/13/2018 [facility] Hgb 13.3 12.0 - 16.0 03/13/2018 [facility] HEMATOLOGY Hct 36.9 36.0 - 48.0 03/13/2018 [facility] HEMATOLOGY RBC 3.87 4.20 - 5.40 03/13/2018 [facility] HEMATOLOGY PTT 30.7 22.9 - 35.8 03/13/2018 [facility] HEMATOLOGY PT 12.8 12.0 - 14.7 03/13/2018 [facility] HEMATOLOGY INR 0.96 0.85 - 1.17 03/13/2018 [facility] HEMATOLOGY PTT 164.1 22.9 - 35.8 03/12/2018 Result Comment: Critical Result(s) saeed samir Taylor at 03/12/2018 14:34 by LINDA. Read back OK. [facility] CHEM PANEL eGFR 62 03/12/2018 Result [...] should be multiplied by the estimated BMI. [facility] CHEM PANEL Total Protein 6.4 6.4 - 8.4 03/12/2018 [facility] CHEM PANEL AGAP 11.0 10.0 - 20.0 03/12/2018 [facility] CHEM PANEL B/C Ratio 17 6 - 25 03/12/2018 [facility] CHEM PANEL Calcium Lvl 8.1 8.5 - 10.5 03/12/2018 [facility] CHEM PANEL Creatinine Lvl 0.95 0.50 - 1.40 03/12/2018 [facility] CHEM PANEL Sodium Lvl 140 135 - 145 03/12/2018 [facility] CHEM PANEL Potassium Lvl 4.0 3.5 - 5.1 03/12/2018 [facility] CHEM PANEL Chloride Lvl 107 95 - 109 03/12/2018 [facility] CHEM PANEL CO2 26 24 - 32 03/12/2018 [facility] CHEM PANEL BUN 16 7 - 22 03/12/2018 [facility] CHEM PANEL Glucose Lvl 113 70 - 99 03/12/2018 [facility] CHEM PANEL Bili Total 0.7 0.2 - 1.3 03/12/2018 [facility] CHEM PANEL Alk Phos 54 39 - 136 03/12/2018 [facility] CHEM PANEL AST 31 0 - 37 03/12/2018 [facility] CHEM PANEL Albumin Lvl 3.3 3.5 - 5.0 03/12/2018 [facility] CHEM PANEL Globulin 3.1 2.7 - 4.2 03/12/2018 [facility] CHEM PANEL A/G Ratio 1.1 0.7 - 1.6 03/12/2018 [facility] CHEM PANEL ALT 49 0 - 65 03/12/2018 [facility] HEMATOLOGY Basophils 0.5 0.0 - 1.0 03/12/2018 [facility] HEMATOLOGY Lymphocytes # 4.5 1.0 - 5.5 03/12/2018 [facility] HEMATOLOGY Segs-Bands # 6.2 1.5 - 8.1 03/12/2018 [facility] HEMATOLOGY Monocytes 8.5 2.0 - 12.0 03/12/2018 [facility] HEMATOLOGY Eosinophils 1.5 0.0 - 4.0 03/12/2018 [facility] HEMATOLOGY Lymphocytes 37.5 20.0 - 40.0 03/12/2018 [facility] HEMATOLOGY Segs 52.0 45.0 - 75.0 03/12/2018 [facility] HEMATOLOGY Eosinophils # 0.2 0.0 - 0.5 03/12/2018 [facility] HEMATOLOGY Monocytes # 1.0 0.0 - 0.8 03/12/2018 [facility] HEMATOLOGY Basophils # 0.1 0.0 - 0.2 03/12/2018 [facility] HEMATOLOGY INR 1.13 0.85 - 1.17 03/12/2018 [facility] HEMATOLOGY PT 14.5 12.0 - 14.7 03/12/2018 [facility] HEMATOLOGY PTT 47.1 22.9 - 35.8 03/12/2018 [facility] HEMATOLOGY MPV 7.8 7.4 - 10.4 03/12/2018 [facility] HEMATOLOGY Platelet 298 133 - 450 03/12/2018 [facility] HEMATOLOGY MCV 94.2 80.0 - 98.0 03/12/2018 [facility] HEMATOLOGY MCH 34.5 27.0 - 31.0 03/12/2018 [facility] HEMATOLOGY RDW 13.3 11.5 - 14.5 03/12/2018 [facility] HEMATOLOGY MCHC 36.7 32.0 - 36.0 03/12/2018 [facility] HEMATOLOGY Hct 38.8 36.0 - 48.0 03/12/2018 [facility] HEMATOLOGY RBC 4.12 4.20 - 5.40 03/12/2018 [facility] HEMATOLOGY Hgb 14.2 12.0 - 16.0 03/12/2018 [facility] HEMATOLOGY WBC 12.0 3.7 - 10.4 03/12/2018 [facility] HEMATOLOGY INR 1.09 0.85 - 1.17 03/12/2018 [facility] HEMATOLOGY PT 14.1 12.0 - 14.7 03/12/2018 [facility] HEMATOLOGY Basophils # 0.1 0.0 - 0.2 03/12/2018 [facility] HEMATOLOGY Lymphocytes # 5.8 1.0 - 5.5 03/12/2018 [facility] HEMATOLOGY Eosinophils # 0.3 0.0 - 0.5 03/12/2018 [facility] HEMATOLOGY Eosinophils 2.4 0.0 - 4.0 03/12/2018 [facility] HEMATOLOGY Basophils 0.9 0.0 - 1.0 03/12/2018 [facility] HEMATOLOGY Segs-Bands # 4.9 1.5 - 8.1 03/12/2018 [facility] HEMATOLOGY Monocytes 9.3 2.0 - 12.0 03/12/2018 [facility] HEMATOLOGY Monocytes # 1.1 0.0 - 0.8 03/12/2018 [facility] HEMATOLOGY Segs 39.9 45.0 - 75.0 03/12/2018 [facility] HEMATOLOGY Lymphocytes 47.5 20.0 - 40.0 03/12/2018 [facility] HEMATOLOGY RDW 13.4 11.5 - 14.5 03/12/2018 [facility] HEMATOLOGY Platelet 316 133 - 450 03/12/2018 [facility] HEMATOLOGY MPV 7.8 7.4 - 10.4 03/12/2018 [facility] HEMATOLOGY Hgb 14.9 12.0 - 16.0 03/12/2018 [facility] HEMATOLOGY MCH 34.2 27.0 - 31.0 03/12/2018 [facility] MCHC 35.7 32.0 - 36.0 03/12/2018 [facility] HEMATOLOGY RBC 4.35 4.20 - 5.40 03/12/2018 [facility] HEMATOLOGY MCV 96.0 80.0 - 98.0 03/12/2018 [facility] HEMATOLOGY WBC 12.2 3.7 - 10.4 03/12/2018 [facility] HEMATOLOGY Hct 41.8 36.0 - 48.0 03/12/2018 [facility] CHEM PANEL eGFR 58 03/11/2018 Result [...] should be multiplied by the estimated BMI. [facility] CHEM PANEL BUN 13 7 - 22 03/11/2018 [facility] CHEM PANEL Glucose Lvl 87 70 - 99 03/11/2018 [facility] CHEM PANEL Alk Phos 60 39 - 136 03/11/2018 [facility] CHEM PANEL Creatinine Lvl 1.00 0.50 - 1.40 03/11/2018 [facility] CHEM PANEL Sodium Lvl 140 135 - 145 03/11/2018 [facility] CHEM PANEL Chloride Lvl 107 95 - 109 03/11/2018 [facility] CHEM PANEL CO2 24 24 - 32 03/11/2018 [facility] CHEM PANEL Total Protein 7.0 6.4 - 8.4 03/11/2018 [facility] CHEM PANEL Calcium Lvl 8.9 8.5 - 10.5 03/11/2018 [facility] CHEM PANEL Potassium Lvl 4.6 3.5 - 5.1 03/11/2018 [facility] CHEM PANEL AST 28 0 - 37 03/11/2018 [facility] CHEM PANEL ALT 51 0 - 65 03/11/2018 [facility] CHEM PANEL Albumin Lvl 3.9 3.5 - 5.0 03/11/2018 [facility] CHEM PANEL Bili Total 0.3 0.2 - 1.3 03/11/2018 [facility] CHEM PANEL A/G Ratio 1.3 0.7 - 1.6 03/11/2018 [facility] CHEM PANEL Globulin 3.1 2.7 - 4.2 03/11/2018 [facility] CHEM PANEL B/C Ratio 13 6 - 25 03/11/2018 [facility] CHEM PANEL AGAP 13.6 10.0 - 20.0 03/11/2018 [facility] HEMATOLOGY Basophils # 0.1 0.0 - 0.2 03/11/2018 [facility] HEMATOLOGY Monocytes # 1.0 0.0 - 0.8 03/11/2018 [facility] HEMATOLOGY Eosinophils # 0.3 0.0 - 0.5 03/11/2018 [facility] HEMATOLOGY Lymphocytes # 4.3 1.0 - 5.5 03/11/2018 [facility] HEMATOLOGY Eosinophils 2.8 0.0 - 4.0 03/11/2018 [facility] HEMATOLOGY Basophils 1.0 0.0 - 1.0 03/11/2018 [facility] Segs-Bands # 5.8 1.5 - 8.1 03/11/2018 [facility] HEMATOLOGY Segs 50.1 45.0 - 75.0 03/11/2018 [facility] Lymphocytes 37.1 20.0 - 40.0 03/11/2018 [facility] Monocytes 9.0 2.0 - 12.0 03/11/2018 [facility] LIPIDS CHD Risk 6.91 3.90 - 5.80 03/11/2018 [facility] LIPIDS LDL (Calculated) 73 <=99 mg/dL 03/11/2018 [facility] LIPIDS VLDL 63 03/11/2018 [facility] LIPIDS HDL 23 >=61 mg/dL 03/11/2018 [facility] LIPIDS Trig 315 <=149 mg/dL 03/11/2018 [facility] LIPIDS Chol 159 <=199 mg/dL 03/11/2018 [facility] Pathology Reports No Data Provided for [...] MRI of the brachial plex us. SL: [id number] 07/25/2018 [facility] [place] Spine cervical wo contrast MRI Clinical Indication: [...] foramina should be confirmed on CT. SL: [id number] 07/25/2018 [facility] Consultation Notes No Data Provided for This Section Discharge Summaries No Data Provided for This Section History and Physicals No Data Provided for This Section Vital Signs Vital Sign Value Date Comments Source Respitory Rate 15 03/13/2018 [facility] Temperature Oral (F) 98.6 F 03/13/2018 [facility] Systolic (mm Hg) 123 03/13/2018 [facility] Diastolic (mm Hg) 59 03/13/2018 [facility] Systolic (mm Hg) 113 03/13/2018 [facility] Diastolic (mm Hg) 74 03/13/2018 [facility] Respitory Rate 15 03/13/2018 [facility] Systolic (mm Hg) 133 03/13/2018 [facility] Diastolic (mm Hg) 69 03/13/2018 [facility] Respitory Rate 18 03/13/2018 [facility] Temperature Oral (F) 98.9 F 03/13/2018 [facility] Temperature Oral (F) 98.3 F 03/13/2018 [facility] Weight 101.3 03/12/2018 [facility] Height 173.99 cm 03/12/2018 [facility] BMI Calculated 33.46 03/12/2018 [facility] Height 175.2 cm 03/11/2018 [facility] BMI Calculated 32.19 03/11/2018 [facility] Weight 98.8 03/11/2018 [facility] Encounters Location Location Details Encounter Type Encounter Number Reason For Visit Attending Provider ADM Date DC Date Status Source OD [id number] 490 - BRONCHITIS NOS WILBERT CHAVES 08/29/2012 [facility] Observ[facility] [id number] Ye Thomas 03/12/2018 03/13/2018 [facility] [place] [facility] [id number] Shiv Brambila 07/25/2018 07/26/2018 [facility] Procedures Procedure Code Date Perfomer Comments Source Bilateral inguinal hernia repair [id number] [facility] Cervical laminectomy [id number] [facility] Assessment and Plan Assessment and Plan [...] seen and examined by me with the resident/PROJECT ENGINEERING DIRECTOR/PA and I agree with the History/Exam documented. 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
--- OUTSIDE RECORDS SUMMARY | 2020-07-07 05:30 | XMS REPORT | Continuity of Care Document ---
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 centrilobular and paraseptal emphysematous most markedly involvin g the upper lobes. PLEURA: Interval development of a small left pleural eff usion. HEART AND MEDIASTINUM: The thyroid gland is normal. Enlarged medias tinal lymph nodes include Redemonstration of enlarged mediastinal lymph node s the largest in the left lower precarinal region measuring 1.4 cm in short ax is on image 43. The heart is normal in size. There is no pericardial effusion. Triple vessel coronary artery calcific atherosclerosis. Aortic calcificat ions. UPPER ABDOMEN: Unremarkable. Adrenal glands are unremarkable. CHRISTOPHE MATTHEW: Redemonstration of lytic metastasis in T5 vertebral body extends into the left T5 neuroforamina and adjacent anterolateral left epidural space. Is also a small lytic lesion in the posterior endplate of T3. SOFT TISSUES: Unrema rkable. Air in the left subclavian artery is due to injection. IMPRESSION : Mild interval increase in size of a invasive mass in left lung apex with encasement of aortic arch branches. Osteolytic vertebral metastasis. Signed by: Dr. Jennifer Pulido M.D. on 05/29/2020 4:09 PM Dictated By: MC PULIDO MD, MD 08 COPY TO: ELIJAH ARNOLD MD Serum or plasma total bilirubin measurement (mass/volume) 2020-05-29 04:50:00* Test Item Value Reference Range Interpretation Comments Total Bilirubin (test code = 1975-2) 0.7 0.2-1.2 [facility] CenterFluoroscopic procedure less than one hour khxijhbe3778-72-84 04:50:00* Test Item Value Reference Range Interpretation Comments Aspartate Amino Transf (AST/SGOT) (test code = Aspartate Amino Transf (AST/SGOT)) 20 5-34 [facility] or plasma alanine aminotransferase measurement (enzymatic activity/volume)2020-05-29 04:50:00* Test Item Value Reference Range Interpretation Comments Alanine Aminotransferase (ALT/SGPT) (test code = 1742-6) 25 0-55 [facility] or plasma protein measurement (mass/volume)2020-05-29 04:50:00* Test Item Value Reference Range Interpretation Comments Total Protein (test code = 2885-2) 6.1 6.5-8.1 [facility] or plasma albumin measurement (mass/volume)2020-05-29 04:50:00* Test Item Value Reference Range Interpretation Comments Albumin (test code = 1751-7) 3.0 3.5-5.0 [facility] CenterPlasma globulin measurement (mass/volume) 2020-05-29 04:50:00* Test Item Value Reference Range Interpretation Comments Globulin (test code = 16047-0) 3.1 2.3-3.5 [facility] or plasma albumin/globulin mass sfkip2992-28-26 04:50:00* Test Item Value Reference Range Interpretation Comments Albumin/Globulin Ratio (test code = 1759-0) 1.0 0.8-2.0 [facility] or plasma alkaline phosphatase measurement (enzymatic activity/volume)2020-05-29 04:50:00* Test Item Value Reference Range Interpretation Comments Alkaline Phosphatase (test code = 6768-6) 84 40-150 [facility] CenterFluoroscopic procedure less than one hour wenywvdj9149-56-72 16:52:00* Test Item Value Reference Range Interpretation Comments Coronavirus (PCR) (test code = Coronavirus (PCR)) NOT DETECTED NOTD ETECTED [employer]ima SARS-CoV-2 assay is a nucleic amplification test intended for the qualitative detection of RNA from SARS-CoV-2 from nasopharyngeal (DIRECTOR [employer]ERAL) specimens . It is used under Emergency Use Authorization (EUA) by FDA.A positive result is indicative of the presence of SARS-CoV-2 RNA. Clinical correlation with patient history and other diagnostic information is necessary to determine patient infe ction status.A negative (Not Detected) result does not preclude SARS-CoV-2 infec tion. Clinical Correlation with patient history and other diagnostic information should be used in patient management decisions.Invalid: Unable to generate a va lid result on this specimen. Please submit a new specimen for reprat testing oc clinically indicated.Tesing performed by:[facility] [address] [place] [address] [id number], Trae Cheung MD, PhD [facility] CenterUrine color mymfrqnhvssgm3552-62-83 14:55:00* Test Item Value Reference Range Interpretation Comments Urine Color (test code = 5778-6) STRAW YELLOW [facility] CenterUrine brhsfpd4145-04-37 14:55:00* Test Item Value Reference Range Interpretation Comments Urine Clarity (test code = 82814-9) SL CLOUDY CLEAR [facility] Campuspecific gravity of Urine by Test strip 2020-05-28 14:55:00* Test Item Value Reference Range Interpretation Comments Urine Specific [place] (test code = 5811-5) 1.025 1.010-1.02 5 [facility] CenterUrine pH measurement by automated test hqjtn6892-71-38 14:55:00* Test Item Value Reference Range Interpretation Comments Urine pH (test code = 09471-0) 6 5-7 [facility] CenterUrine leukocyte esterase detection by jvnvjqak5595-75-35 14:55:00* Test Item Value Reference Range Interpretation Comments Urine Leukocyte Esterase (test code = 5799-2) NEGATIVE NEGATIVE [facility] CenterUrine nitrite qcfyzvxgq7630-95-41 14:55:00* Test Item Value Reference Range Interpretation Comments Urine Nitrite (test code = 23204-5) NEGATIVE NEGATIVE [facility] CenterUrine protein measurement by test strip (mass/volume)2020-05-28 14:55:00* Test Item Value Reference Range Interpretation Comments Urine Protein (test code = 5804-0) 1+ NEGATIVE [facility] CenterUrine glucose hxyhqasfu7260-12-84 14:55:00* Test Item Value Reference Range Interpretation Comments Urine Glucose (UA) (test code = 2349-9) NEGATIVE NEGATIVE [facility] CenterUrine ketones detection by automated test vqham1626-38-25 14:55:00* Test Item Value Reference Range Interpretation Comments Urine Ketones (test code = 64557-1) NEGATIVE NEGATIVE [facility] CenterUrine urobilinogen measurement by test strip (mass/volume)2020-05-28 14:55:00* Test Item Value Reference Range Interpretation Comments Urine Urobilinogen (test code = 29840-1) 1 0.2-1 [facility] CenterUrine total bilirubin measurement (mass/volume)2020-05-28 14:55:00* Test Item Value Reference Range Interpretation Comments Urine Bilirubin (test code = 1978-6) NEGATIVE NEGATIVE [facility] CenterUrine erythrocytes ylgjhwtrx0397-18-61 14:55:00* Test Item Value Reference Range Interpretation Comments Urine Blood (test code = 02396-1) NEGATIVE NEGATIVE [facility] CenterAutomated urine sediment leukocyte count by microscopy (number/high power field)2020-05-28 14:55:00* Test Item Value Reference Range Interpretation Comments Urine WBC (test code = 5821-4) NONE 0-5 [facility] CenterErythrocytes detection in urine sediment by light fnkqunjcel6390-27-34 14:55:00* Test Item Value Reference Range Interpretation Comments Urine RBC (test code = 29405-5) NONE 0-5 [facility] CenterBacteria detection in urine sediment by light uohfjcaheq0632-10-23 14:55:00* Test Item Value Reference Range Interpretation Comments Urine Bacteria (test code = 23250-4) RARE NONE [facility] CenterEpithelial cells detection in urine sediment by light koicvwxsbr0808-87-57 14:55:00* Test Item Value Reference Range Interpretation Comments Urine Epithelial Cells (test code = 00270-7) NONE NONE [facility] CenterFluoroscopic procedure less than one hour xrfglhfj5325-90-57 14:36:00* Test Item Value Reference Range Interpretation Comments Lactic Acid Level (test code = Lactic Acid Level) 0.7 0.5- 2.0 [facility] CenterCHEST SINGLE (PORTABLE)2020-05-28 11:41:[address] [address] Patient Name: JOSEPH LONGO MR #: [id number] : 1950 Age/Sex: 70/M Req #: [id number] Adm Physician: Ordered by: MAGDY MUÑOZ DO Report #: [id number] Location: ER Room/Bed: Procedure: [id number] DX/CHEST SI NGLE (PORTABLE) Exam Date: 05/28/20 Exam Time: 1110 REPORT STATUS: Signed EXAMINATIO N: CHEST SINGLE (PORTABLE) INDICATION: Chest pain COMPARISON: [facility] radiograph 04/01/2020 FINDINGS: LINES/TUBES:None LUNGS:The right lung is well-inflated. Left lung volume remains low. Unchanged left hem idiaphragmatic elevation. No focal consolidation. PLEURA:No pleural effusio n or pneumothorax. MEDIASTINUM:The cardiomediastinal silhouette appears unc hanged in size and shape. BONES/SOFT TISSUES:No acute osseous injury. ABDOMEN:No free air under the diaphragm. IMPRESSION: Unchanged left hemidiaphragmatic elevation. No focal pneumonia or pulmonary edema. Upp er mediastinal mass better visualized on prior CT. Signed by: Medardo Hahn on 05/28/2020 11:42 AM Dictated By: MOON SCHWARTZ MD 1142 Transcribed By: RADHA on 05/28/20 1142 COPY TO: MAGDY MUÑOZ DO Blood qpdtptz3040-80-35 11:18:00* Test Item Value Reference Range Interpretation Comments Blood Culture (test code = 12350368) NO GROWTH AFTER 72 HOURS [facility]- PET/CT TUMOR SK UILFN7242-44-25 15:37:00 FAX: Chapin Hernandez [phone] [place]: St: REG FAX: Adwoa Martínez [phone] Name: JOSEPH LONGO [facility] : 1950 Age/S: 70/M [address] Unit #: [id number] Loc: [place], [place] [address] Phys: Adwoa Arnold MD Acct: [id number] Dis Date: Status: REG CLI PHONE #: [phone] Exam Date: 04/26/2020 1045 FAX #: [phone] Reason: CELL LUNG CA EXAMS: CPT CODE: [id number] PET/CT TUMOR SK BS MIDTH 73772 HISTORY: Staging lung cancer. COMPARISON: None available. Location: [facility]. PET/CT SCAN: 10.6 mCi of FDG administered. Images obtained from the skull base to the upper thighs 1 hour postinjection. Blood glucose level = 117 mg/dL. HEAD AND NECK: Intense uptake within the brain parenchyma limits evaluation. Physio logic pharyngeal uptake. CHEST: Spiculated ill-defined apical mass in the left upper lobe insinuating into the mediastinum measuring 7 x 5 x 6 cm with SUV uptake ranging up to 7 consistent with lung cancer. No othe r mass or lesions. No pathologic hilar, mediastinal or axillary adenopathy or uptake. No chest wall. ABDOMEN: No hepatic or adrenal me tastases. No abnormal uptake within the kidneys, pancreas and spleen. No p athologic mesenteric, retroperitoneal or retrocrural adenopathy or uptake. Extensive excretion into the bowel limits evaluation. PELVI S: Extensive excretion into the bowel limits evaluation. Excretion into th e urinary bladder. No pelvic pathologic adenopathy. MUSCULOSKELETA L: Large metastatic focus to the T5 vertebral body with SUV uptake ranging up to 7 without loss of height. IMPRESSION: I ll-defined spiculated mass in the medial left apex insinuating into the mediastinum measuring 7 x 5 x 6 cm with SUV uptake of 7 highly suggestiv e of lung cancer. No other lesions or pathologic hilar or mediastinal or axillary adenopathy. Single metastatic focus to the T5 verteb ral body with SUV uptake ranging up to 7. Electronically Sig mukul by Narayan Zamarripa on 04/26/2020 at 1537 Reported and signed by: Gonzalo Zamarripa M.D. PAGE 1 Signed Repo rt (CONTINUED) FAX: Chapin Hernandez [place]: St: REG FAX: Adwoa Martínez [phone] ------ Name: JOSEPH LONGO [facility] : [birth year] Age/S: 70/M [address] Unit #: [id number] Loc: [place] [address] Phys: Patricia Arnold MD Acct: [id number] Dis Date: Status: REG CLI PHONE #: [phone] Exam Date: 04/26/2020 1045 FAX #: [phone] Reason: CELL LUNG CA EXAMS: CPT CODE: [id number] PET/CT TUMOR SK MIDTH 22856 <Continued> CC: Dr. Chapin Lee; Adwoa Arnold MD Technologist: [facility] Date/Time/By: 04/26/2020 (1530) : By: [email or web address] Orig Print D/T: S: 04/26/2020 (9820) PAGE 2 Signed Report - MRI BRAIN W WO [id number] 09:44:00 FAX: Chapin Hernandez [phone] [place]: [facility]: REG FAX: Adwoa Martínez [phone] Name: JOSEPH LONGO [facility] : 1950 Age/S: 70/M [address] Unit #: [id number] Loc: [place] [address] Phys: Adwoa Arnold MD Acct: [id number] Dis Date: Status: REG CLI PHONE #: [phone] Exam Date: 04/26/2020935 FAX #: [phone] Reason: CELL LUNG CA EXAMS: CPT CODE: [id number] MRI BRAIN W [place] CONT [address] HISTORY: Staging lung cancer. COMPARISON: None milo ilable. MRI brain with and without contrast: 100 mL of Isovue 370. Location: [facility]. No acute territorial vascular or acu te lacunar infarction is noted. No MR evidence for hemorrhage is noted. No extra-axial fluid collections. No white matter lesions. No herniation, hy drocephalus or midline shift. Fourth ventricle is midline. T he expected flow-voids are noted within the major intracranial vasculature . VII and VIII nerve complex are symmetrical and normal. Mastoid air cells are clear. Sinuses are clear. Intraorbital contents are normal in appeara nce. Midbrain, ashlyn and medulla are without mass effect. No cerebe llar ectopia. The pituitary gland, optic chiasm and corpus callosum are normal. Clivus demonstrated normal marrow signal. Symmetrical hippocam pi. No mesial temporal sclerosis. Following gadolinium no abnormal enhanci ng masses or lesions or meningeal enhancement. Well-opacified dural sinuse s. IMPRESSION: No evidence of metastatic disea se. at 0944 Reported and signed by: Gonzalo Zamarripa M.D. CC : Dr. Chapin Lee; Adwoa Arnold MD Technologist: CANDY RICHARDSON,RT - MRI Trnscrd Date/Time/By: 04/26/2020 (8379) : By: [email or web address] Orig Print D/T: S: 04/26/2020 (0178) PAGE 1 Signed Report CREATININE W ESTIMATED [id number] 08:45:00* Test Item Value Reference Range Interpretation Comments BEDSIDE CREATININE (test code = CREATBED) mg/dL 0.7-1.3 L GLOMERULAR FILTRATION RATE POC (test code = GFRBED) 125 >6 0 H CREATININE W ESTIMATED [id number] 08:45:00* Test Item Value Reference Range Interpretation Comments BEDSIDE CREATININE (test code = CREATBED) 0.63 mg/dL 0.7-1.3 L GLOMERULAR FILTRATION RATE POC (test code = GFRBED) > 60 >6 0 H Previously reported result: 125 Edited by: TELLO on 04/26/20:890204 0845: GFRBED previously reported as: 125 H CHEST SINGLE (PORTABLE)2020-04-01 14:27:00 [address] [address] Patient Name: JOSEPH LONGO MR #: [id number] : 1950 Age/Sex: 69/M Req #: [id number] Adm Physician: Ordered by: MOON SCHWARTZ MD Report #: [id number] Location: CT Room/Bed: Procedure: [id number] DX/CHEST SINGLE ( PORTABLE) Exam Date: 04/01/20 Exam Time: 1345 REPORT STATUS: Signed EXAMINATION: CH EST SINGLE [...] 04/01/201426 COPY TO: MOON SCHWARTZ MD BIOPSY HEQK6982-75-39 13:34:00 [address] [address] Patient Name: JOSEPH LONGO MR #: [id number] : 1950 Age/Sex: 69/M Req #: [id number] Adm Physician: Ordered by: SHERON KWON MD Report #: [id number] Location: CT Room/Bed: Procedure: IR/BIOPSY [facility] Exam Date: 04/01/20 Exam Time: 09 REPORT STATUS: Signed PROCEDURE: CT-guided bi opsy [...] needle: 19 gauge Core needle biopsy device: [employer] Core needle size: 20 gauge Nu mber of core specimens: 3 Fine needle aspiration device: [employer] Fine needl e size: 22g Number of [...] 1:37 PM Dictated By: MOON SCHWARTZ MD 5988 COPY TO: NICANOR KWON MD, ABI CHEST SINGLE (PORTABLE)2020-04-01 12:57:00 [address] [address] Patient Name: JOSEPH LONGO MR #: [id number] : 1950 Age/Sex: 69/M Req #: [id number] Adm Physician: Ordered by: MOON SCHWARTZ MD Report #: [id number] Location: CT Room/Bed: Procedure: [id number] DX/CHEST SINGLE ( PORTABLE) Exam Date: 04/01/20 Exam Time: 1130 REPORT STATUS: Signed EXAMINATION: EST SINGLE (PORTABLE) INDICATION: Postprocedural COMPARISON: CT-gu ided biopsy of earlier the same day FINDINGS: LINES/TUBES:None LUNGS:The right lung is well-inflated. Left lung volumes are relatively low. No focal consolidation or pulmonary edema. PLEURA:No pleural effusion or pneumothorax. MEDIASTINUM:Left upper mediastinal prominence corresponds wit h known upper mediastinal soft tissue mass. The heart is not enlarged. CHRISTOHPE MATTHEW/SOFT TISSUES:No acute osseous injury. ABDOMEN:No free air under the ellyn phragm. IMPRESSION: No pneumothorax status post left upper mediastina l biopsy. Signed by: Moon Schwartz MD on 04/01/2020 12:57 PM Dictated B y: MOON SCHWARTZ MD 1257 [place] scribed By: RADHA on 04/01/20 1257 COPY TO: MOON SCHWARTZ MD CHEST SINGLE (PORTABLE)2020-04-01 12:42:00 [address] [address] Patient Name: JOSEPH LONGO MR #: [id number] : 1950 Age/Sex: 69/M Req #: [id number] Adm Physician: Ordered by: MOON SCHWARTZ MD Report #: [id number] Location: CT Room/Bed: Procedure: [id number] DX/CHEST SINGLE ( PORTABLE) Exam Date: 04/01/20 [...] Count (test code = 6690-2) 11.37 4.8-10.8 [facility] CenterBlood erythrocytes automated count (number/volume)2020-03-24 05:50:00* Test Item Value Reference Range Interpretation Comments Red Blood Count (test code = 789-8) 3.75 4.3-5.7 [facility] CenterBlood hemoglobin measurement (moles/volume)2020-03-24 05:50:00* Test Item Value Reference Range Interpretation Comments Hemoglobin (test code = 96674-4) 12.7 14.0-18.0 [facility] CenterAutomated blood hematocrit (volume fraction)2020-03-24 05:50:00* Test Item Value Reference Range Interpretation Comments Hematocrit (test code = 4544-3) 35.4 38.2-49.6 [facility] CenterAutomated erythrocyte mean corpuscular mjrhpv1863-15-39 05:50:00* Test Item Value Reference Range Interpretation Comments Mean Corpuscular Volume (test code = 787-2) 94.4 81-99 [facility] CenterAutomated erythrocyte mean corpuscular hemoglobin (mass per erythrocyte)2020-03-24 05:50:00* Test Item Value Reference Range Interpretation Comments Mean Corpuscular Hemoglobin (test code = 785-6) 33.9 28-32 [facility] CenterAutomated erythrocyte mean corpuscular hemoglobin concentration measurement (mass/volume)2020-03-24 05:50:00* Test Item Value Reference Range Interpretation Comments Mean Corpuscular Hemoglobin Concent (test code = 786-4) 35.9 31-35 [facility] CenterRDW JbwJe-Pcn6687-19-03 05:50:00* Test Item Value Reference Range Interpretation Comments Red Cell Distribution Width (test code = 85503-1) 13.9 11.7 -14.4 [facility] CenterAutomated blood platelet count (count/volume)2020-03-24 05:50:00* Test Item Value Reference Range Interpretation Comments Platelet Count (test code = 777-3) 333 140-360 [facility] CenterAutomated blood segmented neutrophil count as percentage of total qenvbtdkba7471-38-34 05:50:00* Test Item Value Reference Range Interpretation Comments Neutrophils (%) (Auto) (test code = 66987-2) 53.2 38.7-80.0 [facility] CenterAutomated blood lymphocyte count as percentage ot total zvlvhvuiwi7285-80-32 05:50:00* Test Item Value Reference Range Interpretation Comments Lymphocytes (%) (Auto) (test code = 736-9) 33.9 18.0-39.1 [facility] CenterAutomated blood monocyte count as percentage of total sxfqkrxbgg8040-31-73 05:50:00* Test Item Value Reference Range Interpretation Comments Monocytes (%) (Auto) (test code = 5905-5) 10.0 4.4-11.3 [facility] CenterAutomated blood eosinophil count as percentage of total xgrstpiqgo3819-50-78 05:50:00* Test Item Value Reference Range Interpretation Comments Eosinophils (%) (Auto) (test code = 713-8) 2.2 0.0-6.0 [facility] Centerom[facility] basophil count as percentage of total fegnehigwp1608-55-59 05:50:00* Test Item Value Reference Range Interpretation Comments Basophils (%) (Auto) (test code = 706-2) 0.4 0.0-1.0 [facility] CenterFluoroscopic procedure less than one hour wpayslxt0879-25-99 05:50:00* Test Item Value Reference Range Interpretation Comments IM GRANULOCYTES % (test code = IM GRANULOCYTES %) 0.3 0.0- 1.0 [facility] CenterAutomated blood neutrophil count 2020-03-24 05:50:00* Test Item Value Reference Range Interpretation Comments Neutrophils # (Auto) (test code = 751-8) 6.0 2.1-6.9 [facility] CenterBlood lymphocytes count (number/volume) 2020-03-24 05:50:00* Test Item Value Reference Range Interpretation Comments Lymphocytes # (Auto) (test code = 27981-7) 3.9 1.0-3.2 [facility] CenterBlood monocytes automated count (number/volume)2020-03-24 05:50:00* Test Item Value Reference Range Interpretation Comments Monocytes # (Auto) (test code = 742-7) 1.1 0.2-0.8 [facility] CenterAutomated blood eosinophil count 2020-03-24 05:50:00* Test Item Value Reference Range Interpretation Comments Eosinophils # (Auto) (test code = 711-2) 0.3 0.0-0.4 [facility] CenterAutomated blood basophil count (count/volume)2020-03-24 05:50:00* Test Item Value Reference Range Interpretation Comments Basophils # (Auto) (test code = 704-7) 0.1 0.0-0.1 [facility] CenterFluoroscopic procedure less than one hour mzvkqitz0051-50-07 05:50:00* Test Item Value Reference Range Interpretation Comments Absolute Immature Granulocyte (auto (hiral t code = Absolute Immature Granulocyte (auto) 0.03 0-0.1 [facility] CenterProthrombin time (PT) in platelet poor plasma by coagulation xajtm0787-33-86 05:50:00* Test Item Value Reference Range Interpretation Comments Prothrombin Time (test code = 5902-2) 12.5 11.9-14.5 [facility] CenterINR in Platelet poor plasma by Coagulation dkdhc5002-89-75 05:50:00* Test Item Value Reference Range Interpretation Comments Prothromb Time International Ratio (test code = 6301-6) 0.88 Oral Anticoagulant Therapy INR Values:1. Low Intensity Therapy 1.5 - 2.02 . Moderate Intensity Therapy 2.0 - 3.03. High Intensity Therapy(1) 2.5 - 3. 54. High Intensity Therapy(2) 3.0 - 4.05. Panic Value INR > 5.0 [facility] or plasma sodium measurement (moles/volume)2020-03-24 05:50:00* Test Item Value Reference Range Interpretation Comments Sodium Level (test code = 2951-2) 141 136-145 [facility] Campuserum or plasma potassium measurement (moles/volume)2020-03-24 05:50:00* Test Item Value Reference Range Interpretation Comments Potassium Level (test code = 2823-3) 4.6 3.5-5.1 [facility] Camp[facility]um or plasma chloride measurement (moles/volume)2020-03-24 05:50:00* Test Item Value Reference Range Interpretation Comments Chloride Level (test code = 2075-0) 106 98-107 [facility] Campuserum or plasma carbon dioxide, total measurement (moles/volume)2020-03-24 05:50:00* Test Item Value Reference Range Interpretation Comments Carbon Dioxide Level (test code = 2028-9) 26 22-29 [facility] Campuserum or plasma anion cfn7521-57-91 05:50:00* Test Item Value Reference Range Interpretation Comments Anion Gap (test code = 78697-7) 13.6 8-16 [facility]userum or plasma urea nitrogen measurement (mass/volume)2020-03-24 05:50:00* Test Item Value Reference Range Interpretation Comments Blood Urea Nitrogen (test code = 3094-0) 13 7-26 [facility]um or plasma creatinine measurement (mass/volume)2020-03-24 05:50:00* Test Item Value Reference Range Interpretation Comments Creatinine (test code = 2160-0) 0.86 0.72-1.25 [facility] Campuserum or plasma urea nitrogen/creatinine mass sbuyn1699-53-84 05:50:00* Test Item Value Reference Range Interpretation Comments BUN/Creatinine Ratio (test code = 3097-3) 15 6-25 [facility] CenterEstimated glomerular filtration rate (GFR) pcvlkiilcfzyc0550-63-16 05:50:00* Test Item Value Reference Range Interpretation Comments Estimat Glomerular Filtration Rate (test code = 818015822) > 60 >60 Ranges were taken from the National Kidney Disease Education Program and the [facility] Foundation literature.Reference ranges:60 or greater: Arlyta25-14 ( for 3 consecutive months): Chronic kidney disease 15 or less: Kidney failureLas Palmas Medical CenterGlucose msexygbhuin8808-90-72 05:50:00* Test Item Value Reference Range Interpretation Comments Glucose Level (test code = HYR8939) 93 74-118 [facility] Campuserum or plasma calcium measurement (mass/volume)2020-03-24 05:50:00* Test Item Value Reference Range Interpretation Comments Calcium Level (test code = 86616-1) 8.9 8.4-10.2 [facility] Campuserum or plasma magnesium measurement (mass/volume)2020-03-24 05:50:00* Test Item Value Reference Range Interpretation Comments Magnesium Level (test code = 72465-2) 1.9 1.3-2.1 [facility]um or plasma total bilirubin measurement (mass/volume)2020-03-24 05:50:00* Test Item Value Reference Range Interpretation Comments Total Bilirubin (test code = 1975-2) 0.5 0.2-1.2 [facility] CenterFluoroscopic procedure less than one hour mkuwzfem2160-28-23 05:50:00* Test Item Value Reference Range Interpretation Comments Aspartate Amino Transf (AST/SGOT) (test code = Aspartate Amino Transf (AST/SGOT)) 14 5-34 [facility] Campuserum or plasma alanine aminotransferase measurement (enzymatic activity/volume)2020-03-24 05:50:00* Test Item Value Reference Range Interpretation Comments Alanine Aminotransferase (ALT/SGPT) (test code = 1742-6) 13 0-55 [facility] Campuserum or plasma protein measurement (mass/volume)2020-03-24 05:50:00* Test Item Value Reference Range Interpretation Comments Total Protein (test code = 2885-2) 6.6 6.5-8.1 [facility] Campuserum or plasma albumin measurement (mass/volume)2020-03-24 05:50:00* Test Item Value Reference Range Interpretation Comments Albumin (test code = 1751-7) 3.4 3.5-5.0 [facility] CenterPlasma globulin measurement (mass/volume) 2020-03-24 05:50:00* Test Item Value Reference Range Interpretation Comments Globulin (test code = 55837-8) 3.2 2.3-3.5 [facility] Camp[facility]um or plasma albumin/globulin mass ymtpu6318-69-60 05:50:00* Test Item Value Reference Range Interpretation Comments Albumin/Globulin Ratio (test code = 1759-0) 1.1 0.8-2.0 [facility]um or plasma alkaline phosphatase measurement (enzymatic activity/volume)2020-03-24 05:50:00* Test Item Value Reference Range Interpretation Comments Alkaline Phosphatase (test code = 6768-6) 74 40-150 [facility] CenterProthrombin time (PT) in platelet poor plasma by coagulation dshhh4411-04-87 05:50:00* Test Item Value Reference Range Interpretation Comments Prothrombin Time (test code = 5902-2) 12.5 11.9-14.5 [facility] CenterINR in Platelet poor plasma by Coagulation zqywp0403-44-12 05:50:00* Test Item Value Reference Range Interpretation Comments Prothromb Time International Ratio (test code = 6301-6) 0.88 Oral Anticoagulant Therapy INR Values:1. Low Intensity Therapy 1.5 - 2.02 . Moderate Intensity Therapy 2.0 - 3.03. High Intensity Therapy(1) 2.5 - 3. 54. High Intensity Therapy(2) 3.0 - 4.05. Panic Value INR > 5.0 [facility] CenterFluoroscopic procedure less than one hour ckgtxhmu3270-31-45 05:20:00* Test Item Value Reference Range Interpretation Comments Hemoglobin A1c Percent (test code = Hemoglobin A1c Percent) 4.6 4.0-7.0 [facility]um or plasma triglyceride measurement (mass/volume)2020-03-23 05:20:00* Test Item Value Reference Range Interpretation Comments Triglycerides Level (test code = 2571-8) 135 0-149 [facility] Campuserum or plasma cholesterol measurement (mass/volume)2020-03-23 05:20:00* Test Item Value Reference Range Interpretation Comments Cholesterol Level (test code = 2093-3) 69 0-199 Less than 200 mg/dL Low Wjcv617 - 239 mg/dL Borderline Xifh246 m g/dl and greater High Risk [facility]um or plasma cholesterol in LDL measurement (mass/volume) 2020-03-23 05:20:00* Test Item Value Reference Range Interpretation Comments LDL Cholesterol (test code = 2089-1) 17 60-130 [facility]um or plasma cholesterol in HDL measurement (mass/volume)2020-03-23 05:20:00* Test Item Value Reference Range Interpretation Comments HDL Cholesterol (test code = 2085-9) 25 40-60 [facility]userum or plasma total cholesterol/cholesterol in HDL mass cpioq3033-49-99 05:20:00* Test Item Value Reference Range Interpretation Comments Cholesterol/HDL Ratio (test code = 9830-1) 2.8 3.9-4.7 [facility]userum or plasma creatine kinase measurement (enzymatic activity/volume)2020-03-23 05:20:00* Test Item Value Reference Range Interpretation Comments Creatine Kinase (test code = 2157-6) 100 30-200 [facility] Campuserum or plasma creatine kinase MB measurement (mass/volume)2020-03-23 05:20:00* Test Item Value Reference Range Interpretation Comments Creatine Kinase MB (test code = 85539-8) 2.40 0-5.0 [facility] CenterTroponin I measurement by highly sensitive enzyme ptonpyarnam4043-82-46 05:20:00* Test Item Value Reference Range Interpretation Comments Troponin I (test code = 26171-4) 0.003 0-0.300 [facility] Campuserum or plasma thyrotropin measurement by detection limit <= 0.005 miu/l (units/volume)2020-03-23 05:20:00* Test Item Value Reference Range Interpretation Comments Thyroid Stimulating Hormone (TSH) (test code = 46962-3) 1.127 0.350-4.940 [facility] Campuserum or plasma carcinoembryonic antigen measurement (mass/volume)2020-03-23 05:20:00* Test Item Value Reference Range Interpretation Comments Carcinoembryonic Antigen (test code = 2039-6) 1.3 0.0-4.7 Nonsmokers <3.9 Smokers <5.6[employer] Electrochemiluminescence Immunoassay(ECLIA)Values obtained with different assay methods or kitscannot be used interchangeably. Results cannot beinterpreted as absolute evidence of the presence orabsence of malignant disease.Performed at: [address] [id number] Director: Greyson Phoenix MD, Phone: [phone] Palmas Medical CenterFluoroscopic procedure less than one hour xbgpawui5769-00-73 05:20:00* Test Item Value Reference Range Interpretation Comments Hemoglobin A1c Percent (test code = Hemoglobin A1c Percent) 4.6 4.0-7.0 [facility]um or plasma triglyceride measurement (mass/volume)2020-03-23 05:20:00* Test Item Value Reference Range Interpretation Comments Triglycerides Level (test code = 2571-8) 135 0-149 [facility]um or plasma cholesterol measurement (mass/volume)2020-03-23 05:20:00* Test Item Value Reference Range Interpretation Comments Cholesterol Level (test code = 2093-3) 69 0-199 Less than 200 mg/dL Low Cigy075 - 239 mg/dL Borderline Tjnh983 m g/dl and greater High Risk [facility]userum or plasma cholesterol in LDL measurement (mass/volume) 2020-03-23 05:20:00* Test Item Value Reference Range Interpretation Comments LDL Cholesterol (test code = 2089-1) 17 60-130 [facility]userum or plasma cholesterol in HDL measurement (mass/volume)2020-03-23 05:20:00* Test Item Value Reference Range Interpretation Comments HDL Cholesterol (test code = 2085-9) 25 40-60 [facility]um or plasma total cholesterol/cholesterol in HDL mass sghbw4145-86-25 05:20:00* Test Item Value Reference Range Interpretation Comments Cholesterol/HDL Ratio (test code = 9830-1) 2.8 3.9-4.7 [facility]um or plasma thyrotropin measurement by detection limit <= 0.005 miu/l (units/volume)2020-03-23 05:20:00* Test Item Value Reference Range Interpretation Comments Thyroid Stimulating Hormone (TSH) (test code = 13784-9) 1.127 0.350-4.940 [facility]um or plasma carcinoembryonic antigen measurement (mass/volume)2020-03-23 05:20:00* Test Item Value Reference Range Interpretation Comments Carcinoembryonic Antigen (test code = 2039-6) 1.3 0.0-4.7 Nonsmokers <3.9 Smokers <5.6[employer] Electrochemiluminescence Immunoassay(ECLIA)Values obtained with different assay methods or kitscannot be used interchangeably. Results cannot beinterpreted as absolute evidence of the presence orabsence of malignant disease.Performed at: [facility] [address] [place], [place] [id number] Director: Greyson Phoenix MD, Phone: [phone] [facility]CT CHEST [id number] 03:21:00 [facility] [address] [address] Patient Name: JOSEPH LONGO MR #: [id number] : 1950 Age/Sex: 69/M Req #: [id number] Adm Physician: Ordered by: JUNIOR MARCUM rt #: [id number] Location: ER Room/Be d: Procedure: [id number] CT/CT CHEST W Exam Date: 03/22/20 Exam [...] DO Fluoroscopic procedure less than one hour xhjuhejz6727-81-03 02:58:00* Test Item Value Reference Range Interpretation [...] under 564(g) of the ACT.Testing performed by [facility] [place] [id number] Palmas Medical CenterFluoroscopic procedure less than one hour duration 2020-03-22 02:50:00* Test Item Value Reference Range Interpretation Comments Lactic Acid Level (test code = Lactic Acid Level) 1.2 0.5- 2.0 [facility] CenterBlood pdujctw5643-31-88 02:50:00* Test Item Value Reference Range Interpretation Comments Blood Culture (test code = 95492906) NO GROWTH AFTER 48 HOURS [facility] CenterCapillary blood glucose measurement by glucometer (mass/volume)2020-03-22 00:40:00* Test Item Value Reference Range Interpretation Comments Bedside Glucose (test code = 14502-0) 161 70-120 Meter ID: [id number] Children's Hospitalillary blood glucose measurement by glucometer (mass/volume)2020-03-22 00:40:00* Test Item Value Reference Range Interpretation Comments Bedside Glucose (test code = 54354-2) 161 70-120 Meter ID: [id number] Palmas Medical CenterBNP Bld-mCnc 2020-03-22 00:35:00* Test Item Value Reference Range Interpretation Comments B-Type Natriuretic Peptide (test code = 92880-3) 17.4 0-100 [facility] Campuserum or plasma lipase measurement (enzymatic activity/volume)2020-03-22 00:35:00* Test Item Value Reference Range Interpretation Comments Lipase (test code = 3040-3) 61 8-78 [facility]d-cBcd1330-25-48 00:35:00* Test Item Value Reference Range Interpretation Comments B-Type Natriuretic Peptide (test code = 25386-9) 17.4 0-100 [facility] Campuserum or plasma lipase measurement (enzymatic activity/volume)2020-03-22 00:35:00* Test Item Value Reference Range Interpretation Comments Lipase (test code = 3040-3) 61 8-78 [facility] CenterABDOMEN-1VIEW (RAVINDERB)2019-06-02 10:49:00 [facility] [address] [place] [address] Patient Name: JOSEPH LONGO MR #: [id number] : [birth year] Age/Sex: 69/M Req #: [id number] Adm Physician: Ordered by: GEETA GHOTRA MD Report #: [id number] Location: [facility] Room/Bed: Procedure: [id number] DX/ABD OMEN-1VIEW (KUB) Exam Date: 06/02/19 Exam [...] TO: GEETA GHOTRA MD CT CERVICAL SPINE YK8007-02-07 17:52:[address] [address] Patient Name: JOSEPH LONGO MR #: [id number] : 1950 Age/Sex: 68/M Req #: [id number] Adm Physician: Ordered by: GAURAV CAMARILLO MD Report #: [id number] Location: ER Room/Bed: Procedure: [id number] CT/CT CERVICAL SPINE WO E xam Date: 04/17/18 Exam Time: 1708 REPORT STATU [...] CAMARILLO MD CT BRAIN WO 2018-04-17 17:52:[address] [address] Patient Name: JOSEPH LONGO MR #: [id number] : 1950 Age/Sex: 68/M Req #: [id number] Adm Physician: Ordered by: GAURAV CAMARILLO MD Report #: [id number] Location: Room/Bed: Procedure: [id number] CT/CT BRAIN WO Exam Date: 04/17/18 Exam [...] GAURAV CAMARILLO MD CHEST SINGLE (PORTABLE)2018-04-17 17:45:[address] [address] Patient Name: JOSEPH LONGO MR #: [id number] : 1950 Age/Sex: 68/M Req #: [id number] Adm Physician: Ordered by: GAURAV CAMARILLO MD Report #: [id number] Location: ER Room/Bed: Procedure: [id number] DX/CHEST SINGLE (PORTABLE) Exam Date: 04/17/18 Exam [...] ROBERT VALLE MD on 04/17/181744 Transcribed By: [facility] on 04/17/181744 COPY TO: GAURAV CAMARILLO MD SHOULDER LEFT UPPDPXMB0958-74-55 17:42:[address] [address] Patient Name: JOSEPH LONGO MR #: [id number] : 1950 Age/Sex: 68/M Req #: [id number] Adm Physician: Ordered by: GAURAV CAMARILLO MD Report #: [id number] Location: ER Room/Bed: Procedure: [id number] DX/SHOULDER LEFT COMPLETE Exam Date: 04/17/18 Exam [...] Comments Creatine Kinase MB (test code = 70242-8) 4.20 0-5.0 [facility] CenterTroponin N5253-48-60 17:35:00* Test Item Value Reference Range Interpretation Comments Troponin I (test code = GAO4126) -0.001 0-0.300 [facility] Campusodium Gmyyd3682-06-24 17:29:00* Test Item Value Reference Range Interpretation Comments Sodium Level (test code = 2951-2) 140 136-145 [facility] CenterPotassium Ghygf4471-58-25 17:29:00* Test Item Value Reference Range Interpretation Comments Potassium Level (test code = 2823-3) 4.4 3.5-5.1 [facility] CenterChloride Aynus3582-95-57 17:29:00* Test Item Value Reference Range Interpretation Comments Chloride Level (test code = 2075-0) 107 98-107 [facility] CenterCarbon Dioxide Mgiso7192-87-89 17:29:00* Test Item Value Reference Range Interpretation Comments Carbon Dioxide Level (test code = 2028-9) 20 22-29 L [facility] CenterAnion Kuw1742-13-03 17:29:00* Test Item Value Reference Range Interpretation Comments Anion Gap (test code = 24157-5) 17.4 8-16 H [facility] CenterBlood Urea Vjdandey7810-82-44 17:29:00* Test Item Value Reference Range Interpretation Comments Blood Urea Nitrogen (test code = 3094-0) 22 7-26 [facility] CenterCreatinine2018-06-27 17:29:00* Test Item Value Reference Range Interpretation Comments Creatinine (test code = 2160-0) 1.20 0.72-1.25 [facility] CenterBUN/Creatinine Dhfbq4979-42-04 17:29:00* Test Item Value Reference Range Interpretation Comments BUN/Creatinine Ratio (test code = 3097-3) 18 6-25 [facility] CenterEstimat Glomerular Filtration Rate 2018-04-17 17:29:00* Test Item Value Reference Range Interpretation Comments Estimat Glomerular Filtration Rate (test code = 48923-5) 60 >60 Ranges were taken from the National Kidney Disease Education Program and the [facility] Kid[facility] Foundation literature.Reference ranges:60 or greater: Jbwveb97-54 ( for 3 consecutive months): Chronic kidney disease 15 or less: Kidney failureLas Palmas Medical CenterGlucose Xdcfp8281-19-71 17:29:00* Test Item Value Reference Range Interpretation Comments Glucose Level (test code = DLG0355) 103 74-118 [facility] CenterCalcium Evgvz9613-02-06 17:29:00* Test Item Value Reference Range Interpretation Comments Calcium Level (test code = 93592-8) 9.8 8.4-10.2 [facility] CenterTotal Zktmzzrzl7112-85-55 17:29:00* Test Item Value Reference Range Interpretation Comments Total Bilirubin (test code = 1975-2) 0.5 0.2-1.2 [facility] CenterAspartate Amino Transf (AST/SGOT) 2018-04-17 17:29:00* Test Item Value Reference Range Interpretation Comments Aspartate Amino Transf (AST/SGOT) (test code = Aspartate Amino Transf (AST/SGOT)) 55 5-34 H [facility] CenterAlanine Aminotransferase (ALT/SGPT) 2018-04-17 17:29:00* Test Item Value Reference Range Interpretation Comments Alanine Aminotransferase (ALT/SGPT) (test code = 1742-6) 68 0-55 H [facility] CenterTotal Qkllylp5448-38-80 17:29:00* Test Item Value Reference Range Interpretation Comments Total Protein (test code = 2885-2) 7.2 6.5-8.1 [facility] CenterAlbumin2018-06-27 17:29:00* Test Item Value Reference Range Interpretation Comments Albumin (test code = 1751-7) 4.0 3.5-5.0 [facility] CenterGlobulin2018-06-27 17:29:00* Test Item Value Reference Range Interpretation Comments Globulin (test code = 21997-4) 3.2 2.3-3.5 [facility] CenterAlbumin/Globulin Mfins2573-73-78 17:29:00 * Test Item Value Reference Range Interpretation Comments Albumin/Globulin Ratio (test code = 1759-0) 1.3 0.8-2.0 [facility] CenterAlkaline Bcuicbemtrw4451-99-17 17:29:00* Test Item Value Reference Range Interpretation Comments Alkaline Phosphatase (test code = 6768-6) 54 40-150 [facility] CenterCreatine Iubcoi8959-36-70 17:29:00* Test Item Value Reference Range Interpretation Comments Creatine Kinase (test code = 2157-6) 522 30-200 H [facility] CenterWhite Blood Irfct6611-08-27 16:57:00* Test Item Value Reference Range Interpretation Comments White Blood Count (test code = 6690-2) 9.73 4.8-10.8 [facility] CenterRed Blood Wnoua0293-72-02 16:57:00* Test Item Value Reference Range Interpretation Comments Red Blood Count (test code = 789-8) 4.06 4.3-5.7 L [facility] CenterHemoglobin2018-06-27 16:57:00* Test Item Value Reference Range Interpretation Comments Hemoglobin (test code = 00387-6) 13.6 14.0-18.0 L [facility] CenterHematocrit2018-06-27 16:57:00* Test Item Value Reference Range Interpretation Comments Hematocrit (test code = 4544-3) 37.3 38.2-49.6 L [facility] CenterMean Corpuscular Pqxehh2987-08-19 16:57:00* Test Item Value Reference Range Interpretation Comments Mean Corpuscular Volume (test code = 787-2) 91.9 81-99 [facility] CenterMean Corpuscular Llrxnakzro1216-93-54 16:57:00* Test Item Value Reference Range Interpretation Comments Mean Corpuscular Hemoglobin (test code = 785-6) 33.5 28-32 H [facility] CenterMean Corpuscular Hemoglobin Concent 2018-04-17 16:57:00* Test Item Value Reference Range Interpretation Comments Mean Corpuscular Hemoglobin Concent (test code = 786-4) 36.5 31-35 H [facility] CenterRed Cell Distribution Kogvq1088-33-69 16:57:00* Test Item Value Reference Range Interpretation Comments Red Cell Distribution Width (test code = 16902-6) 13.1 11.7 -14.4 [facility] CenterPlatelet Hbpzx2834-39-26 16:57:00* Test Item Value Reference Range Interpretation Comments Platelet Count (test code = 777-3) 335 140-360 [facility] CenterNeutrophils (%) (Auto)2018-04-17 16:57:00 * Test Item Value Reference Range Interpretation Comments Neutrophils (%) (Auto) (test code = 27962-8) 48.9 38.7-80.0 [facility] CenterLymphocytes (%) (Auto)2018-04-17 16:57:00 * Test Item Value Reference Range Interpretation Comments Lymphocytes (%) (Auto) (test code = 736-9) 40.8 18.0-39.1 H [facility] CenterMonocytes (%) (Auto)2018-04-17 16:57:00* Test Item Value Reference Range Interpretation Comments Monocytes (%) (Auto) (test code = 5905-5) 7.5 4.4-11.3 [facility] CenterEosinophils (%) (Auto)2018-04-17 16:57:00 * Test Item Value Reference Range Interpretation Comments Eosinophils (%) (Auto) (test code = 713-8) 2.0 0.0-6.0 [facility] CenterBasophils (%) (Auto)2018-04-17 16:57:00* Test Item Value Reference Range Interpretation Comments Basophils (%) (Auto) (test code = 706-2) 0.4 0.0-1.0 [facility] CenterIM GRANULOCYTES %2018-04-17 16:57:00* Test Item Value Reference Range Interpretation Comments IM GRANULOCYTES % (test code = IM GRANULOCYTES %) 0.4 0.0- 1.0 [facility] CenterNeutrophils # (Auto)2018-04-17 16:57:00* Test Item Value Reference Range Interpretation Comments Neutrophils # (Auto) (test code = 751-8) 4.8 2.1-6.9 [facility] CenterLymphocytes # (Auto)2018-04-17 16:57:00* Test Item Value Reference Range Interpretation Comments Lymphocytes # (Auto) (test code = 80791-7) 4.0 1.0-3.2 H [facility] CenterMonocytes # (Auto)2018-04-17 16:57:00* Test Item Value Reference Range Interpretation Comments Monocytes # (Auto) (test code = 742-7) 0.7 0.2-0.8 [facility] CenterEosinophils # (Auto)2018-04-17 16:57:00* Test Item Value Reference Range Interpretation Comments Eosinophils # (Auto) (test code = 711-2) 0.2 0.0-0.4 [facility] CenterBasophils # (Auto)2018-04-17 16:57:00* Test Item Value Reference Range Interpretation Comments Basophils # (Auto) (test code = 704-7) 0.0 0.0-0.1 [facility] CenterAbsolute Immature Granulocyte (auto 2018-04-17 16:57:00* Test Item Value Reference Range Interpretation Comments Absolute Immature Granulocyte (auto (hiral t code = Absolute Immature Granulocyte (auto) 0.04 0-0.1 [facility] CenterELECTROLYTES2018-05-23 09:49:009.7 [facility] XsihduzFGSUSBRYRQXR5588-03-74 09:49:0053[facility] HermannELECTROLYTES 2018-03-13 09:49:82180Xfpqhlai ZgcofnaFUCICLEPFJOT4924-45-28 09:49:0024[facility] AmtsszkXYLUOSTSYJXR6007-55-95 09:49:003.7[facility] OyasglqHGYQTIJOOCKA7559-46-71 09:49:94153Xverqbjy FzksgmxXNGBSYSVSYNN3989-02-15 09:49:007.8[facility] SZNIDGEEKOAD1095-91-49 09:49:17028Mtfmlnjb OsychmpKEUMYAKOZUBQ7211-09-43 09:49:0016[facility] GvilpliXNCYQGRPIMSR6735-11-68 09:49:001.07[facility] UJAPXUSMLU7618-96-56 09:49:41046Kqwupzhu MocgfrjPFFBCZWIPH3912-73-81 09:49:00 13.1[facility] XiygjtvFIFPANDEOO6738-44-31 09:49:007.8[facility] HermannHEMATOLOGY 2018-03-13 09:49:0036.0[facility] PyggczaUINQGCDVIS1765-75-58 09:49:0095.3[facility] YgfkckgFUSWTIWOVG6695-16-23 09:49:00* Test Item Value Reference Range Interpretation Comments MCH (test code = MCH) 34.3 pg 27.0-31.0 [facility] JvnatrvDBSWWSCZSL5563-34-96 09:49:0011.4[facility] HermannHEMATOLOGY 2018-03-13 09:49:0013.3[facility] IjvbqsuXACAXNZWDD2781-22-69 09:49:0036.9[facility] TmavnckDSSBETVFBW9382-02-35 09:49:003.87[facility] GsjduhmBDWTWIWZJN9036-34-31 09:49:00* Test Item Value Reference Range Interpretation Comments PTT (test code = PTT) 30.7 s 22.9-35.8 [facility] NzbswrxQAKAVFXMSP7589-55-49 09:49:00* Test Item Value Reference Range Interpretation Comments PT (test code = PT) 12.8 s 12.0-14.7 [facility] IvucyttDMWQPSCKZT5695-17-72 09:49:00* Test Item Value Reference Range Interpretation Comments INR (test code = INR) 0.96 1 0.85-1.17 [facility]RpkrgjhNSNEQPWLGD5771-78-87 19:05:28* Test Item Value Reference Range Interpretation Comments PTT (test code = PTT) 164.1 s 22.9-35.8 [facility]CHE[facility] KIJPS8782-47-18 12:06:0062[facility] HermannCHEM PANEL 2018-03-12 12:06:006.4[facility] HermannCHEM VXYNU9717-20-86 12:06:0011.0[facility] HermannCHEM DIHGE9206-29-29 12:06:00* Test Item Value Reference Range Interpretation Comments B/C Ratio (test code = B/C Ratio) 17 1 6-25 [facility] HermannCHEM BRULS0643-57-88 12:06:008.1[facility] HermannCHEM PANEL 2018-03-12 12:06:000.95[facility] HermannCHEM SMUDR8692-58-08 12:06:01192Aboqtuti HermannCHEM DZQGH8378-32-60 12:06:004.0[facility] HermannCHEM SQDTM9206-01-98 12:06:56620Hxcaoknf HermannCHEM SOODH0588-79-65 12:06:0026[facility] HermannCHEM EGQLS6401-96-73 12:06:0016[facility] HermannCHEM MJQWQ9200-23-31 12:06:57616 [facility] HermannCHEM HDKCF1869-44-69 12:06:000.7[facility] HermannCHEM PANEL 2018-03-12 12:06:0054[facility] HermannCHEM OQSYZ5270-54-59 12:06:0031[facility] HermannCHEM QSMPX0229-24-13 12:06:003.3[facility] HermannCHEM WLEKJ7279-04-60 12:06:003.1[facility] HermannCHEM CNKVV7259-07-88 12:06:00* Test Item Value Reference Range Interpretation Comments A/G Ratio (test code = A/G Ratio) 1.1 1 0.7-1.6 [facility] HermannCHEM AXZHC5099-95-42 12:06:0049[facility] HermannHEMATOLOGY 2018-03-12 12:06:000.5[facility] MveusqoQNAZCKFJPB1012-97-05 12:06:004.5[facility] PqkrhfeBGBCXNQHFH8207-78-15 12:06:006.2[facility] MlrzdcaUNLYOBDACX2640-38-23 12:06:008.5[facility] NzaihhoTQGLZIZQJS1854-33-12 12:06:001.5[facility] CHROOUJCRS5632-35-14 12:06:0037.5[facility] OheqexzLLKIEJJSDM1159-47-58 12:06:00 52.0[facility] KaqdtltSDSXIVJYWE5732-16-05 12:06:000.2[facility] HermannHEMATOLOGY 2018-03-12 12:06:001.0[facility] WgavcldHJCGDPIJAY0067-91-61 12:06:000.1[facility] GatevogBHNUNGNGWE5982-30-09 12:06:00* Test Item Value Reference Range Interpretation Comments INR (test code = INR) 1.13 1 0.85-1.17 [facility] PasoQpmqoctVFQIZLPQUU5815-56-45 12:06:00* Test Item Value Reference Range Interpretation Comments PT (test code = PT) 14.5 s 12.0-14.7 [facility] SsoabxiGSOVJDCKHY7489-68-44 12:06:00* Test Item Value Reference Range Interpretation Comments PTT (test code = PTT) 47.1 s 22.9-35.8 [facility] LwnxchsPFBPWEVXXN7455-26-79 12:06:007.8[facility] HermannHEMATOLOGY 2018-03-12 12:06:69876Jvhagblx JqlcdbmCCETXZWMLC9611-81-11 12:06:0094.2[facility] ZaggtuuYOVYTGRMAP5636-90-62 12:06:00* Test Item Value Reference Range Interpretation Comments MCH (test code = MCH) 34.5 pg 27.0-31.0 [facility] PasoEeheulwQMVGVLSCZO4169-25-10 12:06:0013.3[facility] HermannHEMATOLOGY 2018-03-12 12:06:0036.7[facility] HdowakpTZISYCQBFJ5658-36-44 12:06:0038.8[facility] QxttiowAXIZRALSES5517-76-26 12:06:004.12[facility] OyablymAZPSSNDEQL5085-90-83 12:06:0014.2[facility] NyjxodqBUGNWEHBKY6832-59-59 12:06:0012.0[facility] MRXRAUQFGU8196-28-32 05:20:00* Test Item Value Reference Range Interpretation Comments INR (test code = INR) 1.09 1 0.85-1.17 [facility] IjzbccqOFFGXPJONQ8748-58-14 05:20:00* Test Item Value Reference Range Interpretation Comments PT (test code = PT) 14.1 s 12.0-14.7 [facility] IkpbrkiRANVCAREEF2133-81-12 01:24:000.1[facility] HermannHEMATOLOGY 2018-03-12 01:24:005.8[facility] RpsvvxbWWYHJHDDTX9964-58-42 01:24:000.3[facility] QruryygDDBYPNPTXG1783-08-39 01:24:002.4[facility] QmbkbrpZDOWDPPSRM7648-04-11 01:24:000.9[facility] ZbjntnwIPVRTNWXFJ2232-81-52 01:24:004.9[facility] KGALRRHPZX3596-26-09 01:24:009.3[facility] PxigzkqTTUQMUQGPC4868-70-19 01:24:001.1 [facility] VrujowrDQPICFAFBD9010-57-27 01:24:0039.9[facility] HermannHEMATOLOGY 2018-03-12 01:24:0047.5[facility] TarqsdoVYUOIYGZTW6785-38-35 01:24:0013.4[facility] NoblzsbDOQBUSZKKW2745-33-20 01:24:05445Tyirtifo YncliamUDBAVOVUOG9240-64-77 01:24:007.8[facility] FmgxwcyAUMRIRMCZQ2010-17-41 01:24:0014.9[facility] UGYBOWCHTQ2725-39-56 01:24:00* Test Item Value Reference Range Interpretation Comments MCH (test code = MCH) 34.2 pg 27.0-31.0 [facility] HotysjtRBYCFMLJXC2337-78-15 01:24:0035.7[facility] HermannHEMATOLOGY 2018-03-12 01:24:004.35[facility] MbdieojBLIBKITGDB1217-22-26 01:24:0096.0[facility] YhmbqqzMPURVECPQT1053-57-28 01:24:0012.2[facility] CcplskjQTZXLFRCVE7560-60-25 01:24:0041.8[facility] HermannCHEM IRHYJ3540-29-07 17:39:0058[facility] HermannCHEM EZORQ6447-04-89 17:39:0013[facility] HermannCHEM CTKWO3461-08-96 17:39:0087 [facility] HermannCHEM PQWSG5357-19-97 17:39:0060[facility] HermannCHEM PANEL 2018-03-11 17:39:001.00[facility] HermannCHEM RAVGC4228-25-11 17:39:59630Ohekbcmz HermannCHEM GAASD0978-40-12 17:39:08535Xarojobw HermannCHEM LEPAW6292-95-91 17:39:0024[facility] HermannCHEM PLHXO4980-39-01 17:39:007.0[facility] HermannCHEM OKJGH0319-61-73 17:39:008.9[facility] HermannCHEM VZAFX2959-04-21 17:39:004.6 [facility] HermannCHEM ZQJIQ7056-03-11 17:39:0028[facility] HermannCHEM PANEL 2018-03-11 17:39:0051[facility] HermannCHEM KVOIZ4277-34-11 17:39:003.9[facility] HermannCHEM XODRK6158-18-35 17:39:000.3[facility] HermannCHEM ETPBR5151-81-21 17:39:00* Test Item Value Reference Range Interpretation Comments A/G Ratio (test code = A/G Ratio) 1.3 1 0.7-1.6 [facility] HermannCHEM FAGEG4101-20-58 17:39:003.1[facility] HermannCHEM PANEL 2018-03-11 17:39:00* Test Item Value Reference Range Interpretation Comments B/C Ratio (test code = B/C Ratio) 13 1 6-25 [facility] HermannCHEM ARDPT1019-38-50 17:39:0013.6[facility] HermannHEMATOLOGY 2018-03-11 17:39:000.1[facility] IyztcorTMHSCDVSVO2408-05-99 17:39:001.0[facility] OzbuxbbJNUCUVATGG1736-25-91 17:39:000.3[facility] HadnnfmIPPLLYEJTE9628-68-87 17:39:004.3[facility] NkuyrcsFERDMVZOGP1302-67-49 17:39:002.8[facility] LQOYPYIJIM4409-70-08 17:39:001.0[facility] TqmyjoqPRRPRGQQQR5802-29-03 17:39:005.8 [facility] YiqpgsyJVPNJXRZYM6268-30-50 17:39:0050.1[facility] HermannHEMATOLOGY 2018-03-11 17:39:0037.1[facility] FspxzewSUYDXZPCPR7503-27-95 17:39:009.0[facility] DdvyxtxOOTEFJ5589-33-13 17:39:00* Test Item Value Reference Range Interpretation Comments CHD Risk (test code = CHD Risk) 6.91 1 3.90-5.80 [facility] BnbcwtrMZQYMQ8941-00-06 17:39:0073[facility] XnkbtusWQVMID1059-39-44 17:39:00* Test Item Value Reference Range Interpretation Comments VLDL (test code = VLDL) 63 1 [facility] WzvxssfVPITVT5916-73-31 17:39:0023[facility] UmavwepVJRHOQ5744-80-77 17:39:57313Khjowcur WcyupzqLUOQOF2275-47-56 17:39:88221Japbjnyu [facility]annWhite Blood Bkitz3975-18-10 21:48:00* Test Item Value Reference Range Interpretation Comments White Blood Count (test code = 6690-2) 10.71 4.8-10.8 [facility] CenterRed Blood Vvivp4534-59-79 21:48:00* Test Item Value Reference Range Interpretation Comments Red Blood Count (test code = 789-8) 5.04 4.3-5.7 [facility] CenterHemoglobin2018-04-25 21:48:00* Test Item Value Reference Range Interpretation Comments Hemoglobin (test code = 56369-9) 17.3 14.0-18.0 LIPEMIC SPECIMEN, PERFORMED SALINE SPECIMEN AND RAN 3 TIMES FOR CONSISTENCYLas [facility]mas Medical CenterHematocrit2018-04-25 21:48:00* Test Item Value Reference Range Interpretation Comments Hematocrit (test code = 4544-3) 46.1 38.2-49.6 LIPEMIC SPECIMEN, PERFORMED SALINE SPECIMEN AND RAN 3 TIMES FOR CONSISTENCYLas [facility] Medical CenterMean Corpuscular Fhodun0243-52-21 21:48:00* Test Item Value Reference Range Interpretation Comments Mean Corpuscular Volume (test code = 787-2) 91.5 81-99 [facility] CenterMean Corpuscular Yseefzptol3920-00-33 21:48:00* Test Item Value Reference Range Interpretation Comments Mean Corpuscular Hemoglobin (test code = 785-6) 34.3 28-32 H [facility] CenterMean Corpuscular Hemoglobin Concent 2018-02-13 21:48:00* Test Item Value Reference Range Interpretation Comments Mean Corpuscular Hemoglobin Concent (test code = 786-4) 37.5 31-35 H [facility] CenterRed Cell Distribution Pnnbc1207-95-93 21:48:00* Test Item Value Reference Range Interpretation Comments Red Cell Distribution Width (test code = 99550-0) 14.9 11.7 -14.4 H [facility] CenterPlatelet Dlnsr3783-79-29 21:48:00* Test Item Value Reference Range Interpretation Comments Platelet Count (test code = 777-3) 390 140-360 H [facility] CenterNeutrophils (%) (Auto)2018-02-13 21:48:00 * Test Item Value Reference Range Interpretation Comments Neutrophils (%) (Auto) (test code = 81679-8) 42.3 38.7-80.0 [facility] CenterLymphocytes (%) (Auto)2018-02-13 21:48:00 * Test Item Value Reference Range Interpretation Comments Lymphocytes (%) (Auto) (test code = 736-9) 43.3 18.0-39.1 H [facility] CenterMonocytes (%) (Auto)2018-02-13 21:48:00* Test Item Value Reference Range Interpretation Comments Monocytes (%) (Auto) (test code = 5905-5) 10.7 4.4-11.3 [facility] CenterEosinophils (%) (Auto)2018-02-13 21:48:00 * Test Item Value Reference Range Interpretation Comments Eosinophils (%) (Auto) (test code = 713-8) 2.5 0.0-6.0 [facility] CenterBasophils (%) (Auto)2018-02-13 21:48:00* Test Item Value Reference Range Interpretation Comments Basophils (%) (Auto) (test code = 706-2) 0.7 0.0-1.0 [facility] CenterIM GRANULOCYTES %2018-02-13 21:48:00* Test Item Value Reference Range Interpretation Comments IM GRANULOCYTES % (test code = IM GRANULOCYTES %) 0.5 0.0- 1.0 [facility] CenterNeutrophils # (Auto)2018-02-13 21:48:00* Test Item Value Reference Range Interpretation Comments Neutrophils # (Auto) (test code = 751-8) 4.5 2.1-6.9 [facility] CenterLymphocytes # (Auto)2018-02-13 21:48:00* Test Item Value Reference Range Interpretation Comments Lymphocytes # (Auto) (test code = 47377-6) 4.6 1.0-3.2 H [facility] CenterMonocytes # (Auto)2018-02-13 21:48:00* Test Item Value Reference Range Interpretation Comments Monocytes # (Auto) (test code = 742-7) 1.2 0.2-0.8 H [facility] CenterEosinophils # (Auto)2018-02-13 21:48:00* Test Item Value Reference Range Interpretation Comments Eosinophils # (Auto) (test code = 711-2) 0.3 0.0-0.4 [facility] CenterBasophils # (Auto)2018-02-13 21:48:00* Test Item Value Reference Range Interpretation Comments Basophils # (Auto) (test code = 704-7) 0.1 0.0-0.1 [facility] CenterAbsolute Immature Granulocyte (auto 2018-02-13 21:48:00* Test Item Value Reference Range Interpretation Comments Absolute Immature Granulocyte (auto (hrial t code = Absolute Immature Granulocyte (auto) 0.05 0-0.1 [facility] CenterB-Type Natriuretic Fhbhdwh7064-15-88 21:46:00* Test Item Value Reference Range Interpretation Comments B-Type Natriuretic Peptide (test code = 32469-1) -10.0 0-100 [facility] CenterB-Type Natriuretic Mxczuqs3135-83-45 21:46:00* Test Item Value Reference Range Interpretation Comments B-Type Natriuretic Peptide (test code = 28728-5) -10.0 0-100 [facility] CenterCreatine Kinase WQ4061-57-79 21:29:00* Test Item Value Reference Range Interpretation Comments Creatine Kinase MB (test code = 53024-5) 3.20 0-5.0 [facility] CenterTroponin T9793-18-61 21:29:00* Test Item Value Reference Range Interpretation Comments Troponin I (test code = YEP5150) 0.008 0-0.300 [facility] CenterD-Dimer Quantitative (PE/DVT)2018-02-13 21:26:00* Test Item Value Reference Range Interpretation Comments D-Dimer Quantitative (PE/DVT) (test code = 53175-1) 0.91 0. 00-0.45 H [facility] CenterD-Dimer Quantitative (PE/DVT)2018-02-13 21:26:00* Test Item Value Reference Range Interpretation Comments D-Dimer Quantitative (PE/DVT) (test code = 89601-8) 0.91 0. 00-0.45 H [facility] Zmrgd7203-53-44 21:25:00* Test Item Value Reference Range Interpretation Comments Sodium Level (test code = 2951-2) 139 136-145 [facility] CenterPotassium Uhsue8596-51-08 21:25:00* Test Item Value Reference Range Interpretation Comments Potassium Level (test code = 2823-3) 3.8 3.5-5.1 [facility] CenterChloride Jonfe7625-21-51 21:25:00* Test Item Value Reference Range Interpretation Comments Chloride Level (test code = 2075-0) 106 98-107 [facility] CenterCarbon Dioxide Lugln3718-23-20 21:25:00* Test Item Value Reference Range Interpretation Comments Carbon Dioxide Level (test code = 2028-9) 22 22-29 [facility] CenterAnion Osd5860-11-77 21:25:00* Test Item Value Reference Range Interpretation Comments Anion Gap (test code = 93303-7) 14.8 8-16 [facility] CenterBlood Urea Ujwinpgh4809-64-92 21:25:00* Test Item Value Reference Range Interpretation Comments Blood Urea Nitrogen (test code = 3094-0) 15 7-26 [facility] CenterCreatinine2018-04-25 21:25:00* Test Item Value Reference Range Interpretation Comments Creatinine (test code = 2160-0) 0.95 0.72-1.25 [facility] CenterBUN/Creatinine Dlbra2293-38-51 21:25:00* Test Item Value Reference Range Interpretation Comments BUN/Creatinine Ratio (test code = 3097-3) 16 6- [facility] CenterEstimat Glomerular Filtration Rate 2018-02-13 21:25:00* Test Item Value Reference Range Interpretation Comments Estimat Glomerular Filtration Rate (test code = 40880-8) 60- >60 Ranges were taken from the National Kidney Disease Education Program and the [facility] Kid[facility] Foundation literature.Reference ranges:60 or greater: Vmbskk68-94 ( for 3 consecutive months): Chronic kidney disease 15 or less: Kidney failureLas Palmas Medical CenterGlucose Hbhwm6507-95-93 21:25:00* Test Item Value Reference Range Interpretation Comments Glucose Level (test code = EDK8628) 106 74-118 [facility] CenterCalcium Ldibc1123-08-35 21:25:00* Test Item Value Reference Range Interpretation Comments Calcium Level (test code = 49871-7) 9.4 8.4-10.2 [facility] CenterTotal Mmtogzeva9043-37-24 21:25:00* Test Item Value Reference Range Interpretation Comments Total Bilirubin (test code = 1975-2) 0.4 0.2-1.2 [facility] CenterAspartate Amino Transf (AST/SGOT) 2018-02-13 21:25:00* Test Item Value Reference Range Interpretation Comments Aspartate Amino Transf (AST/SGOT) (test code = Aspartate Amino Transf (AST/SGOT)) 27 5-34 [facility] CenterAlanine Aminotransferase (ALT/SGPT) 2018-02-13 21:25:00* Test Item Value Reference Range Interpretation Comments Alanine Aminotransferase (ALT/SGPT) (test code = 1742-6) 38 0-55 [facility] CenterTotal Sfbtxbe8733-07-02 21:25:00* Test Item Value Reference Range Interpretation Comments Total Protein (test code = 2885-2) 7.4 6.5-8.1 [facility] CenterAlbumin2018-04-25 21:25:00* Test Item Value Reference Range Interpretation Comments Albumin (test code = 1751-7) 3.8 3.5-5.0 [facility] CenterGlobulin2018-04-25 21:25:00* Test Item Value Reference Range Interpretation Comments Globulin (test code = 26379-0) 3.6 2.3-3.5 H [facility] CenterAlbumin/Globulin Jmlgt4170-13-82 21:25:00 * Test Item Value Reference Range Interpretation Comments Albumin/Globulin Ratio (test code = 1759-0) 1.1 0.8-2.0 [facility] CenterAlkaline Mfxgkvudjvs5295-48-16 21:25:00* Test Item Value Reference Range Interpretation Comments Alkaline Phosphatase (test code = 6768-6) 63 40-150 [facility] CenterCreatine Ysiahl1352-57-06 21:25:00* Test Item Value Reference Range Interpretation Comments Creatine Kinase (test code = 2157-6) 172 30-200 [facility] CenterActivated Partial Thromboplast Time 2018-02-13 21:13:00* Test Item Value Reference Range Interpretation Comments Activated Partial Thromboplast Time (test code = 90562-4) 27.4 23.8-35.5 [facility] CenterActivated Partial Thromboplast Time 2018-02-13 21:13:00* Test Item Value Reference Range Interpretation Comments Activated Partial Thromboplast Time (test code = 59504-7) 27.4 23.8-35.5 [facility] CenterProthrombin Xuxt4567-05-54 21:12:00* Test Item Value Reference Range Interpretation Comments Prothrombin Time (test code = 5902-2) 12.5 11.9-14.5 [facility] CenterProthromb Time International Ratio 2018-02-13 21:12:00* Test Item Value Reference Range Interpretation Comments Prothromb Time International Ratio (test code = 6301-6) 1.01 Oral Anticoagulant Therapy INR Values:1. Low Intensity Therapy 1.5 - 2.02 . Moderate Intensity Therapy 2.0 - 3.03. High Intensity Therapy(1) 2.5 - 3. 54. High Intensity Therapy(2) 3.0 - 4.05. Panic Value INR > 5.0 [facility] CenterProthrombin Qlzc8062-78-32 21:12:00* Test Item Value Reference Range Interpretation Comments Prothrombin Time (test code = 5902-2) 12.5 11.9-14.5 [facility] CenterProthromb Time International Ratio 2018-02-13 21:12:00* Test Item Value Reference Range Interpretation Comments Prothromb Time International Ratio (test code = 6301-6) 1.01 Oral Anticoagulant Therapy INR Values:1. Low Intensity Therapy 1.5 - 2.02 . Moderate Intensity Therapy 2.0 - 3.03. High Intensity Therapy(1) 2.5 - 3. 54. High Intensity Therapy(2) 3.0 - 4.05. Panic Value INR > 5.0 [facility] CenterCreatine Kinase VY1279-63-66 07:42:00* Test Item Value Reference Range Interpretation Comments Creatine Kinase MB (test code = 36582-3) 3.80 0-5.0 [facility] CenterTroponin V1139-50-05 07:42:00* Test Item Value Reference Range Interpretation Comments Troponin I (test code = BFX6147) -0.001 0-0.300 [facility]odium Karfe7037-64-91 07:39:00* Test Item Value Reference Range Interpretation Comments Sodium Level (test code = 2951-2) 141 136-145 [facility] CenterPotassium Qkzxj4051-69-16 07:39:00* Test Item Value Reference Range Interpretation Comments Potassium Level (test code = 2823-3) 4.2 3.5-5.1 [facility] CenterChloride Tqyvw7186-87-81 07:39:00* Test Item Value Reference Range Interpretation Comments Chloride Level (test code = 2075-0) 112 98-107 H [facility] CenterCarbon Dioxide Idrmq9174-21-13 07:39:00* Test Item Value Reference Range Interpretation Comments Carbon Dioxide Level (test code = 2028-9) 22 22-29 [facility] CenterAnion Jni3880-21-09 07:39:00* Test Item Value Reference Range Interpretation Comments Anion Gap (test code = 38512-4) 11.2 8-16 [facility] CenterBlood Urea Dkeuobht4684-25-23 07:39:00* Test Item Value Reference Range Interpretation Comments Blood Urea Nitrogen (test code = 3094-0) 14 - [facility] CenterCreatinine2018-02-26 07:39:00* Test Item Value Reference Range Interpretation Comments Creatinine (test code = 2160-0) 0.82 0.72-1.25 [facility] CenterBUN/Creatinine Gnheq7709-75-62 07:39:00* Test Item Value Reference Range Interpretation Comments BUN/Creatinine Ratio (test code = 3097-3) 17 - [facility] CenterEstimat Glomerular Filtration Rate 2017-12-17 07:39:00* Test Item Value Reference Range Interpretation Comments Estimat Glomerular Filtration Rate (test code = 08505-5) 60- >60 Ranges were taken from the National Kidney Disease Education Program and the [facility] Kid[facility] Foundation literature.Reference ranges:60 or greater: Ploiem83-98 ( for 3 consecutive months): Chronic kidney disease 15 or less: Kidney failureLas Palmas Medical CenterGlucose Epqfv9435-99-57 07:39:00* Test Item Value Reference Range Interpretation Comments Glucose Level (test code = SNE5752) 116 74-118 [facility] CenterCalcium Yoexj4863-69-34 07:39:00* Test Item Value Reference Range Interpretation Comments Calcium Level (test code = 84725-7) 8.3 8.4-10.2 L [facility] CenterTotal Xjsnbzegi2459-53-60 07:39:00* Test Item Value Reference Range Interpretation Comments Total Bilirubin (test code = 1975-2) 0.4 0.2-1.2 [facility] CenterAspartate Amino Transf (AST/SGOT) 2017-12-17 07:39:00* Test Item Value Reference Range Interpretation Comments Aspartate Amino Transf (AST/SGOT) (test code = Aspartate Amino Transf (AST/SGOT)) 31 5-34 [facility] CenterAlanine Aminotransferase (ALT/SGPT) 2017-12-17 07:39:00* Test Item Value Reference Range Interpretation Comments Alanine Aminotransferase (ALT/SGPT) (test code = 1742-6) 43 0-55 [facility] Jrpbumd7722-42-32 07:39:00* Test Item Value Reference Range Interpretation Comments Total Protein (test code = 2885-2) 5.7 6.5-8.1 L [facility] CenterAlbumin2018-02-26 07:39:00* Test Item Value Reference Range Interpretation Comments Albumin (test code = 1751-7) 3.4 3.5-5.0 L [facility] CenterGlobulin2018-02-26 07:39:00* Test Item Value Reference Range Interpretation Comments Globulin (test code = 79072-1) 2.3 2.3-3.5 [facility] CenterAlbumin/Globulin Kqatd6092-99-82 07:39:00 * Test Item Value Reference Range Interpretation Comments Albumin/Globulin Ratio (test code = 1759-0) 1.5 0.8-2.0 [facility] CenterAlkaline Eqbknzjqpab4197-20-59 07:39:00* Test Item Value Reference Range Interpretation Comments Alkaline Phosphatase (test code = 6768-6) 44 40-150 [facility] CenterTriglycerides Hkvpi0143-64-93 07:39:00* Test Item Value Reference Range Interpretation Comments Triglycerides Level (test code = 2571-8) 133 0-149 [facility] CenterCholesterol Agwck8903-02-22 07:39:00* Test Item Value Reference Range Interpretation Comments Cholesterol Level (test code = 2093-3) 131 0-199 Less than 200 mg/dL Low Mbmi159 - 239 mg/dL Borderline Tlcj464 m g/dl and greater High Risk [facility] CenterLDL Kimjeiwugba5088-69-47 07:39:00* Test Item Value Reference Range Interpretation Comments LDL Cholesterol (test code = 2089-1) 80 60-130 [facility]L Pwelibctdpm1519-98-96 07:39:00* Test Item Value Reference Range Interpretation Comments HDL Cholesterol (test code = 2085-9) 24 40-60 L [facility] Aocwh1403-10-24 07:39:00 * Test Item Value Reference Range Interpretation Comments Cholesterol/HDL Ratio (test code = 9830-1) 5.5 3.9-4.7 H [facility] Ldsto3727-31-41 07:39:00* Test Item Value Reference Range Interpretation Comments Triglycerides Level (test code = 2571-8) 133 0-149 [facility] Cysgc2577-24-18 07:39:00* Test Item Value Reference Range Interpretation Comments Cholesterol Level (test code = 2093-3) 131 0-199 Less than 200 mg/dL Low Ijrf086 - 239 mg/dL Borderline Xoxa894 m g/dl and greater High Risk [facility] Lxvucgognlk8418-53-36 07:39:00* Test Item Value Reference Range Interpretation Comments LDL Cholesterol (test code = 2089-1) 80 60-130 [facility] Shzgmvsvtbn0675[facility]13-94 07:39:00* Test Item Value Reference Range Interpretation Comments HDL Cholesterol (test code = 2085-9) 24 40-60 L [facility] Ldajs2369-53-90 07:39:00 * Test Item Value Reference Range Interpretation Comments Cholesterol/HDL Ratio (test code = 9830-1) 5.5 3.9-4.7 H [facility] CenterTriglycerides Ebtaq9978-52-06 07:39:00* Test Item Value Reference Range Interpretation Comments Triglycerides Level (test code = 2571-8) 133 0-149 [facility]Cholesterol Dmspi9495-67-89 07:39:00* Test Item Value Reference Range Interpretation Comments Cholesterol Level (test code = 2093-3) 131 0-199 Less than 200 mg/dL Low Epcx604 - 239 mg/dL Borderline Txsu484 m g/dl and greater High Risk [facility] CenterLDL Aigyvhwvyqu5536-27-30 07:39:00* Test Item Value Reference Range Interpretation Comments LDL Cholesterol (test code = 2089-1) 80 60-130 [facility] CenterHDL Txvaamfsjpg8228-04-81 07:39:00* Test Item Value Reference Range Interpretation Comments HDL Cholesterol (test code = 2085-9) 24 40-60 L [facility]Ch[facility]HDL Axzuk9060-23-37 07:39:00 * Test Item Value Reference Range Interpretation Comments Cholesterol/HDL Ratio (test code = 9830-1) 5.5 3.9-4.7 H [facility] CenterCreatine Wnuczn4460-29-48 07:32:00* Test Item Value Reference Range Interpretation Comments Creatine Kinase (test code = 2157-6) 261 30-200 H [facility] CenterWhite Blood Cifls7864-81-37 07:22:00* Test Item Value Reference Range Interpretation Comments White Blood Count (test code = 6690-2) 8.14 4.8-10.8 [facility] CenterRed Blood Wyqoe2242-08-66 07:22:00* Test Item Value Reference Range Interpretation Comments Red Blood Count (test code = 789-8) 3.40 4.3-5.7 L [facility] CenterHemoglobin2018-02-26 07:22:00* Test Item Value Reference Range Interpretation Comments Hemoglobin (test code = 32703-0) 11.7 14.0-18.0 L [facility] CenterHematocrit2018-02-26 07:22:00* Test Item Value Reference Range Interpretation Comments Hematocrit (test code = 4544-3) 31.2 38.2-49.6 L [facility] CenterMean Corpuscular Rjnyzf4305-57-21 07:22:00* Test Item Value Reference Range Interpretation Comments Mean Corpuscular Volume (test code = 787-2) 91.8 81-99 [facility] CenterMean Corpuscular Uwewtumvhr9389-41-58 07:22:00* Test Item Value Reference Range Interpretation Comments Mean Corpuscular Hemoglobin (test code = 785-6) 34.4 28-32 H [facility] CenterMean Corpuscular Hemoglobin Concent 2017-12-17 07:22:00* Test Item Value Reference Range Interpretation Comments Mean Corpuscular Hemoglobin Concent (test code = 786-4) 37.5 31-35 H [facility] CenterRed Cell Distribution Yygti6710-83-17 07:22:00* Test Item Value Reference Range Interpretation Comments Red Cell Distribution Width (test code = 78548-8) 13.0 11.7 -14.4 [facility] CenterPlatelet Ovbqz8724-60-34 07:22:00* Test Item Value Reference Range Interpretation Comments Platelet Count (test code = 777-3) 310 140-360 [facility] CenterNeutrophils (%) (Auto)2017-12-17 07:22:00 * Test Item Value Reference Range Interpretation Comments Neutrophils (%) (Auto) (test code = 23704-6) 47.5 38.7-80.0 [facility] CenterLymphocytes (%) (Auto)2017-12-17 07:22:00 * Test Item Value Reference Range Interpretation Comments Lymphocytes (%) (Auto) (test code = 736-9) 40.0 18.0-39.1 H [facility] CenterMonocytes (%) (Auto)2017-12-17 07:22:00* Test Item Value Reference Range Interpretation Comments Monocytes (%) (Auto) (test code = 5905-5) 7.9 4.4-11.3 [facility] CenterEosinophils (%) (Auto)2017-12-17 07:22:00 * Test Item Value Reference Range Interpretation Comments Eosinophils (%) (Auto) (test code = 713-8) 3.7 0.0-6.0 [facility] CenterBasophils (%) (Auto)2017-12-17 07:22:00* Test Item Value Reference Range Interpretation Comments Basophils (%) (Auto) (test code = 706-2) 0.7 0.0-1.0 [facility] CenterIM GRANULOCYTES %2017-12-17 07:22:00* Test Item Value Reference Range Interpretation Comments IM GRANULOCYTES % (test code = IM GRANULOCYTES %) 0.2 0.0- 1.0 [facility] CenterNeutrophils # (Auto)2017-12-17 07:22:00* Test Item Value Reference Range Interpretation Comments Neutrophils # (Auto) (test code = 751-8) 3.9 2.1-6.9 [facility] CenterLymphocytes # (Auto)2017-12-17 07:22:00* Test Item Value Reference Range Interpretation Comments Lymphocytes # (Auto) (test code = 02730-4) 3.3 1.0-3.2 H [facility] CenterMonocytes # (Auto)2017-12-17 07:22:00* Test Item Value Reference Range Interpretation Comments Monocytes # (Auto) (test code = 742-7) 0.6 0.2-0.8 [facility] CenterEosinophils # (Auto)2017-12-17 07:22:00* Test Item Value Reference Range Interpretation Comments Eosinophils # (Auto) (test code = 711-2) 0.3 0.0-0.4 [facility] CenterBasophils # (Auto)2017-12-17 07:22:00* Test Item Value Reference Range Interpretation Comments Basophils # (Auto) (test code = 704-7) 0.1 0.0-0.1 [facility] CenterAbsolute Immature Granulocyte (auto 2017-12-17 07:22:00* Test Item Value Reference Range Interpretation Comments Absolute Immature Granulocyte (auto (hiral t code = Absolute Immature Granulocyte (auto) 0.02 0-0.1 [facility] CenterUrine [id number] 21:30:00* Test Item Value Reference Range Interpretation Comments Urine WBC (test code = 5821-4) 0-5 0-5 [facility] CenterU[facility] DCL0269-49-22 21:30:00* Test Item Value Reference Range Interpretation Comments Urine RBC (test code = 48736-6) 0-5 0-5 [facility] CenterU[facility] Jolfbrfv1407-61-22 21:30:00* Test Item Value Reference Range Interpretation Comments Urine Bacteria (test code = 66447-8) RARE NONE [facility] CenterUrine Epithelial Hhqkw7102-25-08 21:30:00 * Test Item Value Reference Range Interpretation Comments Urine Epithelial Cells (test code = 18601-1) FEW NONE [facility] CenterU[facility] LLN0905-82-00 21:30:00* Test Item Value Reference Range Interpretation Comments Urine WBC (test code = 5821-4) 0-5 0-5 [facility] CenterU[facility] PEP5345-36-65 21:30:00* Test Item Value Reference Range Interpretation Comments Urine RBC (test code = 97588-0) 0-5 0-5 [facility] CenterU[facility] Ihwzvtga9615-24-51 21:30:00* Test Item Value Reference Range Interpretation Comments Urine Bacteria (test code = 84976-7) RARE NONE [facility] CenterU[facility] Epithelial Goofa4459-58-44 21:30:00 * Test Item Value Reference Range Interpretation Comments Urine Epithelial Cells (test code = 64067-0) FEW NONE [facility] CenterU[facility] GVF8955-40-02 21:30:00* Test Item Value Reference Range Interpretation Comments Urine WBC (test code = 5821-4) 0-5 0-5 [facility] CenterU[facility] ZHJ0924-70-23 21:30:00* Test Item Value Reference Range Interpretation Comments Urine RBC (test code = 97357-6) 0-5 0-5 [facility] CenterU[facility] Nvpvsffn3845-56-16 21:30:00* Test Item Value Reference Range Interpretation Comments Urine Bacteria (test code = 01194-6) RARE NONE [facility] CenterU[facility] Epithelial Ujemj4456-55-31 21:30:00 * Test Item Value Reference Range Interpretation Comments Urine Epithelial Cells (test code = 35019-8) FEW NONE [facility] CenterU[facility] Wtqxu6880-98-53 21:13:00* Test Item Value Reference Range Interpretation Comments Urine Color (test code = 5778-6) YELLOW YELLOW [facility] CenterU[facility] Uyxxjxc7913-61-74 21:13:00* Test Item Value Reference Range Interpretation Comments Urine Clarity (test code = 09413-4) CLEAR CLEAR [facility] CenterUrine Specific Ydrucsv1037-86-30 21:13:00 * Test Item Value Reference Range Interpretation Comments Urine Specific [place] (test code = 5811-5) 1.015 1.010-1.02 5 [facility] CenterU[facility] sB0794-49-61 21:13:00* Test Item Value Reference Range Interpretation Comments Urine pH (test code = 10608-2) 5 5-7 [facility] Center[facility] Leukocyte Mzkcborl8374-45-31 21:13:00* Test Item Value Reference Range Interpretation Comments Urine Leukocyte Esterase (test code = 5799-2) NEGATIVE NEGATIVE [facility] Jgcnadn1840-61-85 21:13:00* Test Item Value Reference Range Interpretation Comments Urine Nitrite (test code = 35096-3) NEGATIVE NEGATIVE [facility] CenterU[facility] Qumribt2336-30-84 21:13:00* Test Item Value Reference Range Interpretation Comments Urine Protein (test code = 5804-0) NEGATIVE NEGATIVE [facility] CenterU[facility] Glucose (UA)2017-12-15 21:13:00* Test Item Value Reference Range Interpretation Comments Urine Glucose (UA) (test code = 2349-9) NEGATIVE NEGATIVE [facility] Jjukrvu1939-98-43 21:13:00* Test Item Value Reference Range Interpretation Comments Urine Ketones (test code = 47612-8) NEGATIVE NEGATIVE [facility] Bucbqaxccgol1991-91-76 21:13:00* Test Item Value Reference Range Interpretation Comments Urine Urobilinogen (test code = 45425-6) 0.2 0.2-1 [facility] Fguxtcjaa2531-72-97 21:13:00* Test Item Value Reference Range Interpretation Comments Urine Bilirubin (test code = 1978-6) NEGATIVE NEGATIVE [facility] Zsxta7531-61-74 21:13:00* Test Item Value Reference Range Interpretation Comments Urine Blood (test code = 69614-9) NEGATIVE NEGATIVE [facility] CenterU[facility] Ysxli8140-99-00 21:13:00* Test Item Value Reference Range Interpretation Comments Urine Color (test code = 5778-6) YELLOW YELLOW [facility] CenterU[facility] Dxcdwwp8384-71-22 21:13:00* Test Item Value Reference Range Interpretation Comments Urine Clarity (test code = 59211-3) CLEAR CLEAR [facility] CenterU[facility] Specific Ficdgif5047-85-37 21:13:00 * Test Item Value Reference Range Interpretation Comments Urine Specific [place] (test code = 5811-5) 1.015 1.010-1.02 5 [facility] iF7249-79-13 21:13:00* Test Item Value Reference Range Interpretation Comments Urine pH (test code = 31125-7) 5 5-7 [facility] Leukocyte Ohtqkmue3952-48-29 21:13:00* Test Item Value Reference Range Interpretation Comments Urine Leukocyte Esterase (test code = 5799-2) NEGATIVE NEGATIVE [facility] Wrrgmsy3345-52-05 21:13:00* Test Item Value Reference Range Interpretation Comments Urine Nitrite (test code = 67796-7) NEGATIVE NEGATIVE [facility] Iuxqbuh2021-34-53 21:13:00* Test Item Value Reference Range Interpretation Comments Urine Protein (test code = 5804-0) NEGATIVE NEGATIVE [facility] Glucose (UA)2017-12-15 21:13:00* Test Item Value Reference Range Interpretation Comments Urine Glucose (UA) (test code = 2349-9) NEGATIVE NEGATIVE [facility] Ycwdnxi5375-91-53 21:13:00* Test Item Value Reference Range Interpretation Comments Urine Ketones (test code = 52227-9) NEGATIVE NEGATIVE [facility] Aypdiqgevwfk1371-58-09 21:13:00* Test Item Value Reference Range Interpretation Comments Urine Urobilinogen (test code = 65486-2) 0.2 0.2-1 [facility] Mdwbphwwp3496-07-04 21:13:00* Test Item Value Reference Range Interpretation Comments Urine Bilirubin (test code = 1978-6) NEGATIVE NEGATIVE [facility] Nmnsx1149-10-29 21:13:00* Test Item Value Reference Range Interpretation Comments Urine Blood (test code = 64970-7) NEGATIVE NEGATIVE [facility] Ohupm8989-55-96 21:13:00* Test Item Value Reference Range Interpretation Comments Urine Color (test code = 5778-6) YELLOW YELLOW [facility] Cxctkcs0679-62-15 21:13:00* Test Item Value Reference Range Interpretation Comments Urine Clarity (test code = 54042-1) CLEAR CLEAR [facility] CenterU[facility] Specific Jxwoabz4657-43-74 21:13:00 * Test Item Value Reference Range Interpretation Comments Urine Specific [place] (test code = 5811-5) 1.015 1.010-1.02 5 [facility] [id number] 21:13:00* Test Item Value Reference Range Interpretation Comments Urine pH (test code = 15952-3) 5 5-7 [facility] Leukocyte Lemjcahf5590-91-42 21:13:00* Test Item Value Reference Range Interpretation Comments Urine Leukocyte Esterase (test code = 5799-2) NEGATIVE NEGATIVE [facility] Radqqtt8631-96-99 21:13:00* Test Item Value Reference Range Interpretation Comments Urine Nitrite (test code = 80741-0) NEGATIVE NEGATIVE [facility] Wejusep9200-08-76 21:13:00* Test Item Value Reference Range Interpretation Comments Urine Protein (test code = 5804-0) NEGATIVE NEGATIVE [facility] Glucose (UA)2017-12-15 21:13:00* Test Item Value Reference Range Interpretation Comments Urine Glucose (UA) (test code = 2349-9) NEGATIVE NEGATIVE [facility] Bezjvnb4400-54-03 21:13:00* Test Item Value Reference Range Interpretation Comments Urine Ketones (test code = 49691-6) NEGATIVE NEGATIVE [facility] Veupukjzkhcd3885-12-88 21:13:00* Test Item Value Reference Range Interpretation Comments Urine Urobilinogen (test code = 71545-9) 0.2 0.2-1 [facility] Jvmgxreca5668-49-00 21:13:00* Test Item Value Reference Range Interpretation Comments Urine Bilirubin (test code = 1978-6) NEGATIVE NEGATIVE [facility] Nruup7735-25-09 21:13:00* Test Item Value Reference Range Interpretation Comments Urine Blood (test code = 77627-8) NEGATIVE NEGATIVE [facility] CenterProthrombin Stmq1238-77-11 20:29:00* Test Item Value Reference Range Interpretation Comments Prothrombin Time (test code = 5902-2) 13.1 11.9-14.5 [facility] CenterProthromb Time International Ratio 2017-12-15 20:29:00* Test Item Value Reference Range Interpretation Comments Prothromb Time International Ratio (test code = 6301-6) 1.07 Oral Anticoagulant Therapy INR Values:1. Low Intensity Therapy 1.5 - 2.02 . Moderate Intensity Therapy 2.0 - 3.03. High Intensity Therapy(1) 2.5 - 3. 54. High Intensity Therapy(2) 3.0 - 4.05. Panic Value INR > 5.0 [facility] CenterActivated Partial Thromboplast Time 2017-12-15 20:29:00* Test Item Value Reference Range Interpretation Comments Activated Partial Thromboplast Time (test code = 07882-2) 29.2 23.8-35.5 [facility] [address] [address] Patient Name: JOSEPH LONGO MR #: [id number] : 1950 Age/Sex: 67/M Req #: [id number] Adm Physician: Ordered by: TRAE LÓPEZ MD Report #: [id number] Location: ER Room/Bed: Procedure: [id number] CT/CT CHEST W Exam Ervin e: 02/13/18 [...] TO: TRAE LÓPEZ MD CHEST SINGLE (PORTABLE) [address] [place] [address] Patient Name: JOSEPH LONGO MR #: [id number] : 1950 Age/Sex: 67/M Req #: [id number] Adm Physician: Ordered by: TARE LÓPEZ MD Report #: [id number] Location: [facility]/Bed: Procedure: [id number] DX/CHEST SINGLE (PORTAB LE) Exam Date: 02/13/18 [...] TRAE LÓPEZ MD CT CERVICAL SPINE WO [place] [address] Patient Name: JOSEPH LONGO MR #: [id number] : 1950 Age/Sex: 67/M Req #: [id number] Adm Physician: Ordered by: YUNG CHIRINOS MD Report #: [id number] Location: ER Room/Bed: Procedure: [id number] CT/CT CERVICAL SPINE WO Exam Date: 12/15/17 [...] MD on 12/16/17 0001 Transcribed By: GILDA Gilbert on 12/16/17 0001 COPY TO: YUNG CHIRINOS MD CT BRAIN WO [place] [address] Patient Name: JOSEPH LONGO MR #: [id number] : 1950 Age/Sex: 67/M Re #: [id number] [facility] Physician: Ordered by: YUNG CHIRINOS MD Report #: [id number] Location: ER Room/Bed : Procedure: [id number] CT/CT BRAIN WO Exam Date: Exam Time: 2319 REPORT STATUS: Signed EXAMINATION: Head and cervical [...] ally Signed By: RONNIE FERREIRA MD on 12/16/172319 Transcribed By: RADHA on 11/23 COPY TO: YUNG CHIRINOS MD CT CHEST W [place] [address] Patient Name: JOSEPH LONGO MR #: [id number] : 1950 Age/Sex: 67/M Req #: [id number] Adm Physician: Ordered by: YUNG CHIRINOS MD Report #: [id number] Location: ER Room/Bed: Procedure: [id number] CT/CT CHEST W Exam Date: 11/23 02/06 [...] TO: YUNG CHIRINOS MD CHEST 2 VIEWS [place] [address] Patient Name: JOSEPH LONGO MR #: [id number] : 1950 Age/Sex: 67/M Req #: [id number] Adm Physician: Ordered by: YUNG CHIRINOS MD Report #: [id number] Location: ER Room/Bed : Procedure: [id number] DX/CHEST 2 VIEWS Exam Date: 12/15/17 Exam [...]
--- NOTE | 2020-07-07 05:36 | Emergency Department Note ---
History of Present Illnes History of Present Illness Chief Complaint: Abdominal Complaints History of Present Illness This is a 70 year old male PRESENTS TO ED WITH REPORT OF PAIN TO ABDOMEN AND BACK, PT RATES PAIN 10/10; PT ALSO REPORTS INTERMITTENT DIZZINESS; PT RECEIVES RADIATION DAILY AT DR. ARNOLD'S OFFICE, [facility]; . Historian: Patient, Family Member Arrival Mode: Car Onset (how long ago): hour(s) (4) Location: LEFT BACK Quality: PAIN Radiation: Reports non-radiation Severity: moderate Onset quality: sudden Duration (how long): hour(s) (4) Timing of current episode: constant Progression: worsening Chronicity: new Context: Reports recent illness (LUNG CANCER) Relieving factors: none Exacerbating factors: none Associated symptoms: Reports nausea/vomiting, Reports weakness, Reports other (DIZZINESS) (TRAE LÓPEZ MD) Past Medical/Family History Physician Review I have reviewed the patient's past medical and family history. Any updates have been documented here. 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 4 [facility] 1 MONTH DIRECTOR HEMATOLOGY (TRAE LÓPEZ MD) Social History Smoking Cessation: Former smoker Any Illegal Drug Use: No Physically hurt or threatened: No (TRAE LÓPEZ MD) Family History Family history of heart diseas: No (TRAE LÓPEZ MD) Other Last Tetanus: [place] (TRAE LÓPEZ MD) Review of Systems Review of Systems Constitutional: Reports weakness EENTM: Reports no symptoms Cardiovascular: Reports no symptoms Respiratory: Reports no symptoms Gastrointestinal: Reports abdominal pain, Reports other (FLANK PAIN) Genitourinary: Reports no symptoms Musculoskeletal: Reports no symptoms Integumentary: Reports no symptoms Neurological: Reports weakness, Reports other (DIZZINESS) Psychological: Reports no symptoms Endocrine: Reports no symptoms Hematological/Lymphatic: Reports no symptoms (TRAE LÓPEZ MD) Physical Exam Related Data Allergies: Coded Allergies: diphenhydramine HCl (Verified Allergy, Mild, ITCHY, 04/17/18) Triage Vital Signs Vital Signs Date Time Temp Pulse Resp B/P (MAP) Pulse Ox O2 Delivery O2 Flow Rate FiO2 07/07/20 05:07 97.9 140 18 97/74 100 Room Air Vital signs reviewed: Yes (TRAE LÓPEZ MD) Physical Exam CONSTITUTIONAL Constitutional: Present well-developed, Present well-nourished, Present distressed (MILD) HENT HENT: Present normocephalic, Present atraumatic, Present oropharynx clear/moist, Present nose normal HENT L/R: Present left ext ear normal, Present right ext ear normal EYES Eyes: Reports PERRL, Reports conjunctivae normal NECK Neck: Present ROM normal PULMONARY Pulmonary: Present effort normal, Present other (DECREASED BS BALDOMERO, BASES BILATERAL) CARDIOVASCULAR Cardiovascular: Present regular rhythm, Present irregular rhythm, Present heart sounds normal, Present capillary refill normal, Present tachycardia (140) GASTROINTESTINAL Abdominal: Present soft, Present bowel sounds normal, Present tender (MILD LUQ), Present left CVA tenderness GENITOURINARY Genitourinary: Present exam deferred SKIN Skin: Present warm, Present dry MUSCULOSKELETAL Musculoskeletal: Present ROM normal NEUROLOGICAL Neurological: Present alert, Present oriented x 3, Present no gross motor or sensory deficits PSYCHOLOGICAL Psychological: Present mood/affect normal, Present judgement normal (TRAE LÓPEZ MD) Results Laboratory Laboratory Laboratory Tests Test 07/07/20 05:15 (TRAE LÓPEZ MD) Procedures 12 Lead ECG Interpretation ECG Interpretation : ECG: ECG 1 [employer]: Interpreted by ED physician Date: Jul 07, 2020 Time: 05:11 Rhythm: atrial flutter Rate: tachycardia BPM: 140 QRS axis: normal ST segments normal: No (NON SPECIFIC CHANGES) T waves normal: Yes Other findings: no other findings Clinical Impression: abnormal ECG (TRAE LÓPEZ MD) Assessment & Plan Medical Decision Making MDM PT WITH LEFT FLANK AND UPPER ABD PAIN, DIZZINESS, NAUSEA CBC, CMP, EKG, CXR, CT ABD/PELVIS, PT/PTT, LACTIC ACID, BLOOD CULTURES, CARDIAC ENZYMES ORDERED TO EVAL FOR SEPSIS, UTI, PNEUMONIA, KIDNEY STONE, UTI, COLITIS, DIVERTICULITIS, CEFEPIME 2 GRAMS IV ORDERED NS 1 LITER IV BOLUS ORDERED DIGOXIN 0.5 MG IV ORDERED [address] ALFORD (TRAE LÓPEZ MD) MDM Admitted to Dr. Michelle for A-flutter and cancer pain. (KENNETH ALFORD MD) Assessment & Plan Final Impression: (1) Atrial flutter (2) Flank pain (TRAE LÓPEZ MD) Depart Disposition: ADMITTED Last Vital Signs Date Time Temp Pulse Resp B/P (MAP) Pulse Ox O2 Delivery O2 Flow Rate FiO2 07/07/20 05:07 97.9 140 18 97/74 100 Room Air (TRAE LÓPEZ MD) Home Meds Active Scripts Magnesium Oxide (MAGNESIUM OXIDE) 400 Mg Tablet, 400 MG PO BID for 14 Days, #28 TAB 0 Refills Prov:FRANCOIS MOYER Abiodun CAREER AGENT 05/31/20 Lisinopril (LISINOPRIL) 10 Mg Tablet, 10 MG PO DAILY for 14 Days, #14 TAB 0 Re fills Prov:FRANCOIS MOYER Abiodun CAREER AGENT 05/31/20 [Albuterol/Ipratropium Nebulize] 3 ML INHA No Conflict Check, 3 ML NEB RQ4H PRN for SHORTNESS OF BREATH for 14 Days, #84 DOSE 1 Refill Prov:FRANCOIS MOYER Abiodun CAREER AGENT 05/31/20 Ranolazine (RANEXA) 500 Mg Tabsr, 1000 MG PO BID for 30 Days Prov:GARETH LIND Medardo CAREER AGENT 03/24/20 Reported Medications Aspirin (ASPIRIN) 81 Mg Tab.chew, 81 MG PO DAILY 05/28/20 Morphine Sulfate (MS CONTIN) 30 Mg Tablet.er, 30 MG PO Q12H, TAB 05/28/20 Atorvastatin Calcium (ATORVASTATIN CALCIUM) 20 Mg Tablet, 40 MG PO DAILY, #30 TAB 02/03/20 Metoprolol Succinate (METOPROLOL SUCCINATE) 25 Mg Tab.er.24h, 25 MG PO DAILY 12/24/18 Terazosin Hcl (TERAZOSIN HCL) 5 Mg Capsule, 5 MG PO HS, #30 CAP 02/19/16 Finasteride (FINASTERIDE) 5 Mg Tablet, 5 MG PO HS, #30 TAB 02/19/16 Loratadine (LORATADINE) 10 Mg Tablet, 10 MG PO DAILY, #30 TAB 02/19/16 Citalopram Hydrobromide (CITALOPRAM HBR) 40 Mg Tablet, 40 MG PO DAILY 02/19/16 Ascorbic Acid (VITAMIN C) 500 Mg Tablet, 500 MG PO DAILY 02/19/16 Multivitamin (DAILY VITAMIN) 1 Each Tablet, 1 TAB PO DAILY 07/09/13 Medications in the ED Sodium Chloride 1,000 ml @ ud STK-MED ONCE .ROUTE ; Start 07/07/20 at 05:20; Stop 07/07/20 at 05:14; Status DC Sodium Chloride 1,000 ml @ 999 mls/hr Q1H1M ONCE IV ; Start 07/07/20 at 05:15; Stop 07/07/20 at 06:15 Cefepime HCl 100 ml @ 200 mls/hr ONCE ONCE IV ; Start 07/07/20 at 05:15; Stop 07/07/20 at 05:44; Status UNV Cefepime HCl 100 ml @ ud STK-MED ONCE IV ; Start 07/07/20 at 05:24; Stop 07/07/20 at 05:18; Status DC (TRAE LÓPEZ MD) TRAE LÓPEZ MD Jul 07, 2020 05:36 KENNETH ALFORD MD Jul 07, 2020 08:31
[2020-07-07] MEDS ORDERED: DIGOXIN INJ 0.25 MG/ML 2 ML AMP IV ONE (05:45)
[2020-07-07 05:47] LABS: BASOPHILS # (AUTO) 0.1 (0.0-0.1); BASOPHILS % 0.4 % (0.0-1.0); EOSINOPHILS % 0.3 % (0.0-6.0); HEMATOCRIT 37.4 % (38.2-49.6); HEMOGLOBIN 13.1 g/dL (14.0-18.0); LYMPHOCYTES # (AUTO) 2.1 (1.0-3.2); LYMPHOCYTES % 15.4 % (18.0-39.1); MEAN CORPUSCULAR HEMOGLOBIN 31.5 pg (28-32); MEAN CORPUSCULAR VOLUME 89.9 fL (81-99); MONOCYTES # (AUTO) 1.5 (0.2-0.8); MONOCYTES % 11.2 % (4.4-11.3); NEUTROPHILS # (AUTO) 9.6 (2.1-6.9); NEUTROPHILS % 72.1 % (38.7-80.0); PLATELET COUNT 475 x10e3/uL (140-360); RED BLOOD COUNT 4.16 x10e6/uL (4.3-5.7); RED CELL DISTRIBUTION WIDTH 13.1 % (11.7-14.4)
[2020-07-07 05:51] LABS: INR 0.94; PROTHROMBIN TIME 13.1 seconds (11.9-14.5)
[2020-07-07 05:52] LABS: PARTIAL THROMBOPLASTIN TIME 33.1 seconds (23.8-35.5)
[2020-07-07 05:57] LABS: CLARITY,URINE CLEAR (CLEAR); COLOR,URINE YELLOW (YELLOW); LEUKOCYTE ESTERASE ,URINE NEGATIVE (NEGATIVE)
[2020-07-07 05:58] LABS: BILIRUBIN,URINE NEGATIVE (NEGATIVE); KETONES,URINE NEGATIVE (NEGATIVE); NITRITE,URINE NEGATIVE (NEGATIVE); PROTEIN,URINE DIPSTICK NEGATIVE (NEGATIVE); URINE UROBILINOGEN 0.2 mg/dL (0.2 - 1)
[2020-07-07 06:01] LABS: ALANINE AMINOTRANSFERASE 28 IU/L (0-55); ALBUMIN 4.1 g/dL (3.5-5.0); ALBUMIN/GLOBULIN RATIO 1.1 (0.8-2.0); ALKALINE PHOSPHATASE 73 IU/L (40-150); ANION GAP 16.4 mmol/L (8-16); BLOOD UREA NITROGEN 8 mg/dL (7-26); BUN/CREATININE RATIO 12 (6-25); CALCIUM 9.1 mg/dL (8.4-10.2); CARBON DIOXIDE 22 mmol/L (22-29); CHLORIDE 96 mmol/L (98-107); CREATINE KINASE 56 IU/L (30-200); CREATININE, SERUM 0.66 mg/dL (0.72-1.25); EST GLOMERULAR FILTRATION RATE > 60 ML/MIN (60-); GLUCOSE 114 mg/dL (74-118); POTASSIUM 4.4 mmol/L (3.5-5.1); SODIUM 130 mmol/L (136-145)
[2020-07-07 06:26] LABS: BACTERIA,URINE MODERATE /HPF; EPITHELIAL CELLS,URINE FEW /LPF; MUCUS,URINE FEW (RARE); RBC,URINE 0-5 /HPF (0-5); WBC,URINE (MAN) 0-5 /HPF (0-5)
[2020-07-07] MEDS ORDERED: IOPAMIDOL 370 MG/ML 200 ML INFUS..BTL INJ ONE (07:28)
[2020-07-07] MEDS ORDERED: SODIUM CHLORIDE 0.9% 50ML 50 ML ONE (07:29)
[2020-07-07] MEDS ORDERED: FENTANYL CITRATE/PF 100MCG/2 ML INJ IV ONE (07:30)
--- NOTE | 2020-07-07 07:39 | Diagnostic Imaging Report ---
EXAMINATION: CHEST SINGLE (PORTABLE) INDICATION: weakness, sob COMPARISON: Chest CT dated 05/29/2020. Chest radiograph dated 04/01/2020. FINDINGS: Unchanged cardiac silhouette. Increased density at the left lung apex extending about the aortic arch is not significantly changed, and correlates with known malignancy is seen on this chest CT dated 05/29/2020. Small left pleural effusion better seen on chest CT the abdomen and pelvis performed today. The right lung is clear. Stable elevation of left hemidiaphragm. IMPRESSION: 1. No acute thoracic process. 2. Unchanged left apical density which correlates with known malignancy as seen on chest CT dated 05/29/2020. Signed by: Topher Stone MD on 07/07/2020 7:36 AM
--- NOTE | 2020-07-07 07:42 | Diagnostic Imaging Report ---
EXAMINATION: Head CT without contrast. HISTORY: 70-year-old male with dizziness, sepsis, lung/bone cancer. COMPARISON: Head CT 04/17/2018 TECHNIQUE: Helical axial images of the head without contrast were obtained. Dose modulation, iterative reconstruction, and/or weight based adjustment of the mA/kV was utilized to reduce the radiation dose to as low as reasonably achievable. FINDINGS: Parenchyma: 1. No abnormal densities. 2. No mass or hemorrhage. No CT evidence of acute territorial vascular insult. Extra-axial spaces:No abnormal density. No extra-axial fluid collections Brain volume: Normal for age. Ventricles: No hydrocephalus or displacement. Arteries: No density suggestive of thrombus. Dural sinuses: No abnormal density. Foramen magnum: No mass, Chiari malformation, or basilar invagination. Sella: No obvious mass. Paranasal/mastoid sinuses: Imaged portions unremarkable. Skull/Scalp: No lytic or blastic lesions. No fractures. IMPRESSION: No intracranial abnormalities, unchanged compared to head CT of 04/17/2018 Signed by: Dr. Romelia Ferreira M.D. on 07/07/2020 7:39 AM
--- NOTE | 2020-07-07 07:54 | Diagnostic Imaging Report ---
EXAM: CT Abdomen and Pelvis WITH contrast INDICATION: abd pain COMPARISON: CT dated 05/29/2020. TECHNIQUE: Abdomen and pelvis were scanned utilizing a multidetector helical scanner from the lung base to the pubic symphysis after administration of IV contrast. Coronal and sagittal reformations were obtained. Routine protocol was performed. Scan was performed when during portal venous phase. IV CONTRAST: 100 mL of Isovue 370 ORAL CONTRAST: None COMPLICATIONS: None RADIATION DOSE: Total DLP: 532.08 mGy*cm Estimated effective dose: (DLP x 0.015 x size factor) mSv CTDIvol has been reviewed. It is below the limits set by the Radiation Protocol Committee (RPC). Dose modulation, iterative reconstruction, and/or weight based adjustment of the mA/kV was utilized to reduce the radiation dose to as low as reasonably achievable. FINDINGS: LINES and TUBES: None. LOWER THORAX: Left apical mass invading the anterior mediastinal fat at the level of the arch and hilar region is partially imaged. Small left pleural effusion. Compression of the left main pulmonary artery and its proximal branches appears mildly increased from prior. The imaged pulmonary arteries are opacified distally. Tumor mass compression of the left upper lobe bronchi has mildly increased from prior. Pulmonary artery is mildly dilated measuring 3.3 cm. Enlarging 11 mm nodule in the right lower lobe, previously 5 mm. Additional scattered sub-6 mm pulmonary nodules are stable. Centrilobular emphysema. HEPATOBILIARY: No focal hepatic lesions. No biliary ductal dilation. GALLBLADDER: No radio-opaque stones or sludge. No wall thickening. SPLEEN: No splenomegaly. PANCREAS: No focal masses or ductal dilatation. ADRENALS: No adrenal nodules KIDNEYS/URETERS: Kidneys enhance symmetrically. No hydronephrosis. No cystic or solid mass lesions. No stones. GI TRACT: No abnormal distention, wall thickening, or evidence of bowel obstruction. Appendix is normal. The stomach is distended with air, without evidence of obstructive process distally. PELVIC ORGANS/BLADDER: No significant abnormality. LYMPH NODES: No lymphadenopathy. VESSELS: Unremarkable. PERITONEUM / RETROPERITONEUM: No free air or fluid. BONES: There are degenerative changes in the spine. SOFT TISSUES: Unremarkable. IMPRESSION: 1. No acute abdominopelvic process. 2. Known left suprahilar mass which invades the mediastinal fat is partially imaged with mildly increased mass effect upon the left main pulmonary artery and left upper lobe bronchi. Imaged pulmonary vessels appear patent distally. 3. Enlarging 11 mm nodule in the right lower lobe, previously 5 mm, concerning for metastatic lesion in the right lung. Signed by: Topher Stone MD on 07/07/2020 7:51 AM
--- OUTSIDE RECORDS SUMMARY | 2020-07-07 08:18 | XMS REPORT | Continuity of Care Document ---
Author Author Tan Macho [employer] JOSEPH Venegas [employer] ([employer]) Address Unknown Phone Unavailable Care Team Providers Care Clinical Program Consultant Name Role Phone [employer] Information Exchange Unavailable Un available Problems Problem Status Onset Date Classification Date Reported Comments Source Carpal tunnel syndrome, left upper limb 07/31/2018 02/11/2019 [facility] HEART CATH Active 03/07/2018 [facility] CAD(CORONARY ARTERY DISEASE) A ctive 03/07/2018 [facility] 490 - BRONCHITIS NOS Active 08/29/2012 [facility] [place] Carpal tunnel syndrome, right upper limb 02/11/2019 [facility] Other cervical disc degeneration, unspec ified cervical region 02/11/2019 [facility] Osteophyte, vertebrae 02/11/2019 [facility] Other specific arthropathies, 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, vertebrae 02/11/2019 [facility] ATHSCL HEART DISEASE OF [place] CORONARY Active [facility] Medications Medication Details Route Status Patient Instructions Ordering Provider Order Date Source metoprolol 25 mg oral tablet, extended release 25 mg = 1 tab, PO, Daily, # 30 tab, 0 Refill(s), Pharmacy: [place] [id number] Active 03/13/2018 [facility] clopidogrel 75 mg oral tablet 75 mg = 1 tab, PO, Daily, # 30 tab, 0 Refill(s), Pharmacy: [place] [id number] Active 03/13/2018 [facility] atorvastatin 40 mg oral tablet 40 mg = 1 tab, PO, Daily, # 30 tab, 0 Refill(s), Pharmacy: [place] [id number] Active 03/13/2018 [facility] Fentanyl Notes: (Same as: Subl imaze) Preservative free. No Longer Active 03/13/2018 [facility] Hydralazine Notes: (Same as: A presoline) Push over 5 minutes No Longer Active 03/12/2018 [facility] Morphine Notes: (Same as:MORPh ine Sulfate) No Longer Active 03/12/2018 [facility] Nitroglycerin Notes: (Same as: Nitroquick, Nitrostat) "Do Not Crush" Sublingual tablet No Longer Active 03/12/2018 [facility] Sodium Chloride 0.9% IV 750 mL 750 mL, Rate: 75 ml/hr, Infuse over: 10 hr, Route: IV, Dosing Weight 101.3 kg, Total Volume: 750, Start date: 03/12/18 12:36:00 CDT, Duration: 10 hr, Stop date: 03/12/18 22:35:00 CDT, 2.24, m2 Inactive 03/12/2018 [facility] Mucinex 1200, PO, Daily, PRN A llergies, 0 Refill(s) No Longer Active 03/12/2018 [facility] Lisinopril Notes: (Same as: Pr inivil, Zestril) No Longer Active 03/12/2018 [facility] Citalopram 20 mg, 2 tab, Route : PO, Drug form: TAB, Daily, Dosing Weight 98.8, kg, Start date: 03/12/18 9:00:00 CDT, Duration: 30 day, Stop date: 04/10/18 9:00:00 CDT No Longer Active 03/12/2018 [facility] atorvastatin Notes: (Same as: Lipitor) No Longer Active 03/12/2018 [facility] Aspirin 81 MG Chewable Tablet 81 mg, 1 tab, Route: PO, Drug form: CHEWTAB, Daily, Dosing Weight 98.8, kg, Start date: 03/12/18 9:00:00 CDT, Duration: 30 day, Stop date: 04/10/18 9:00:00 CDT No Longer Active 03/12/2018 [facility] clopidogrel Notes: (Same As: P lavix) No Longer Active 03/12/2018 [facility] Aspirin 81 MG Enteric Coated Tablet Notes: Do not crush or chew. (Same As: Ecotrin) No Longer Active 03/12/2018 [facility] metoprolol extended release No hiral: (Same as: Toprol XL) Do Not Crush No Longer Active 03/12/2018 [facility] Terazosin Notes: (Same As: Hyt rin) No Longer Active 03/12/2018 [facility] Famotidine Notes: (Same as: Pe pcid) No Longer Active 03/12/2018 [facility] heparin additive 25,000 unit [12 unit/kg /hr] + Premix Diluent Dextrose 5% 500 mL 500 mL, Rate: 19.01 ml/hr, Infuse over: 26.3 hr, Route: IV, Dosing Weight 79.2 kg, Total Volume: 500 mL, Start date: 03/11/18 17:52:00 CDT, Duration: 30 day, Stop date: 04/10/18 17:51:00 CDT, 1.98, m2 No Longer Active 03/11/2018 [facility] Heparin 30 unit/kg Bolus (Heparin Dosing Weight) Route: IVP, PRN, 2,400 unit, 2.4 mL, Drug form: INJ, PRN, Heparin Protocol, Start date: 03/11/18 17:52:00 CDT Stop date: 04/10/18 17:51:00 CDT, 30 day No Longer Active 03/11/2018 [facility] Heparin 60 unit/kg Bolus (Heparin Dosing Weight) Route: IVP, PRN, 4,800 unit, 4.8 mL, Drug form: INJ, PRN, Heparin Protocol, Start date: 03/11/18 17:52:00 CDT Stop date: 04/10/18 17:51:00 CDT, 30 day No Longer Active 03/11/2018 [facility] Alprazolam 0.5 MG Oral Tablet 0.5 mg, 1 tab, Route: PO, ONCE, Dosing Weight 98.8, kg, Start date: 03/11/18 17:35:00 CDT, Stop date: 03/11/18 17:35:00 CDT Inactive 03/11/2018 [facility] Clotrimazole 10 MG/ML Topical Cream [Lotrimin] Notes: For external use only. (Same As: Lotrimin AF, Mycelex) No Longer Active 03/11/2018 [facility] Ondansetron Notes: (Same as: Z conchita) No Longer Active 03/11/2018 [facility] Morphine 4 mg, 2 mL, Route: IV P, Drug form: SOLN, Q2H, Dosing Weight 98.8, kg, PRN Pain Score 7-10, Start date: 03/11/18 16:20:00 CDT, Duration: 30 day, Stop date: 04/10/18 16:19:00 CDT No Longer Active 03/11/2018 [facility] Nitroglycerin Notes: (Same as: Nitroquick, Nitrostat) "Do Not Crush" Sublingual tablet No Longer Active 03/11/2018 [facility] Sodium Chloride 0.9% IV 750 mL 750 mL, Rate: 75 ml/hr, Infuse over: 10 hr, Route: IV, Dosing Weight 98.8 kg, Total Volume: 750, Start date: 03/11/18 16:20:00 CDT, Duration: 10 hr, Stop date: 03/12/18 2:19:00 CDT, 2.21, m2 No Longer Active 03/11/2018 [facility] prasugrel 60 mg, Route: PO, Dr ug form: TAB, ONCE, Dosing Weight 98.8, kg, Priority: NOW, Start date: 03/11/18 16:19:00 CDT, Stop date: 03/11/18 16:19:00 CDT Inactive 03/11/2018 [facility] atorvastatin PO, Daily, 0 Refi ll(s) No Longer Active 03/11/2018 [facility] lisinopril 20 mg oral tablet 2 0 mg = 1 tab, PO, Daily, 0 Refill(s) Active 03/11/2018 [facility] Clotrimazole 10 MG/ML Topical Cream [Lotrimin] 1 appl, TOP, BID, 0 Refill(s) Active 03/11/2018 [facility] Aspirin 81 MG Chewable Tablet 81 mg = 1 tab, PO, Daily, tab, 0 Refill(s) Active 03/11/2018 [facility] terazosin 10 mg oral capsule 1 0 mg = 1 cap, PO, Bedtime, 0 Refill(s) Active 03/11/2018 [facility] citalopram 40 mg oral tablet 2 0 mg = 0.5 tab, PO, Daily, 0 Refill(s) Active 03/11/2018 [facility] Alprazolam 0.5 MG Oral Tablet Notes: With food or milk (Same as: Xanax) Inactive 03/11/2018 [facility] Allergies, Adverse Reactions, Alerts Substance Category Reaction Severity Reaction type Status Date Reported Comments Source Vicodin Assertion Drug allergy Active [facility] Benadryl Assertion Vicodin Drug allergy Active [facility] Immunizations Immunization Date Given Site Status Last Updated Comments Source pneumococcal 13-valent vaccine 03/13/2018 Left Gluteus Medius completed Brandon Betyz theast, [facility] Results Order Name Results Value Reference Range Date Interpretation Comments Source ELECTROLYTES AGAP 9.7 10.0 - 20.0 03/13/2018 [facility] ELECTROLYTES eGFR 53 03/13/2018 Result Comment: The [...] should be multiplied by the estimated BMI. [facility] ELECTROLYTES Sodium Lvl 138 135 - 145 03/13/2018 [facility] ELECTROLYTES CO2 24 24 - 32 03/13/2018 [facility] ELECTROLYTES Potassium Lvl 3.7 3.5 - 5.1 03/13/2018 [facility] ELECTROLYTES Chloride Lvl 108 95 - 109 03/13/2018 [facility] ELECTROLYTES Calcium Lvl 7.8 8.5 - 10.5 03/13/2018 [facility] ELECTROLYTES Glucose Lvl 118 70 - 99 03/13/2018 [facility] ELECTROLYTES BUN 16 7 - 22 03/13/2018 [facility] ELECTROLYTES Creatinine Lvl 1.0 7 0.50 - 1.40 03/13/2018 [facility] HEMATOLOGY Platelet 275 133 - 450 03/13/2018 [facility] HEMATOLOGY RDW 13.1 11.5 - 14.5 03/13/2018 [facility] HEMATOLOGY MPV 7.8 7.4 - 10.4 03/13/2018 [facility] HEMATOLOGY MCHC 36.0 32.0 - 36.0 03/13/2018 [facility] HEMATOLOGY MCV 95.3 80.0 - 98.0 03/13/2018 [facility] MCH 34.3 27.0 - 31.0 03/13/2018 [facility] HEMATOLOGY WBC 11.4 3.7 - 10.4 03/13/2018 [facility] Hgb 13.3 12.0 - 16.0 03/13/2018 [facility] HEMATOLOGY Hct 36.9 36.0 - 48.0 03/13/2018 [facility] HEMATOLOGY RBC 3.87 4.20 - 5.40 03/13/2018 [facility] HEMATOLOGY PTT 30.7 22.9 - 35.8 03/13/2018 [facility] HEMATOLOGY PT 12.8 12.0 - 14.7 03/13/2018 [facility] HEMATOLOGY INR 0.96 0.85 - 1.17 03/13/2018 [facility] HEMATOLOGY PTT 164.1 22.9 - 35.8 03/12/2018 Result Comment: Critical Result(s) saeed samir Taylor at 03/12/2018 14:34 by LINDA. Read back OK. [facility] CHEM PANEL eGFR 62 03/12/2018 Result Comment: [...] should be multiplied by the estimated BMI. [facility] CHEM PANEL Total Protein 6.4 6.4 - 8.4 03/12/2018 [facility] CHEM PANEL AGAP 11.0 10.0 - 20.0 03/12/2018 [facility] CHEM PANEL B/C Ratio 17 6 - 25 03/12/2018 [facility] CHEM PANEL Calcium Lvl 8.1 8.5 - 10.5 03/12/2018 [facility] CHEM PANEL Creatinine Lvl 0.95 0.50 - 1.40 03/12/2018 [facility] CHEM PANEL Sodium Lvl 140 135 - 145 03/12/2018 [facility] CHEM PANEL Potassium Lvl 4.0 3.5 - 5.1 03/12/2018 [facility] CHEM PANEL Chloride Lvl 107 95 - 109 03/12/2018 [facility] CHEM PANEL CO2 26 24 - 32 03/12/2018 [facility] CHEM PANEL BUN 16 7 - 22 03/12/2018 [facility] CHEM PANEL Glucose Lvl 113 70 - 99 03/12/2018 [facility] CHEM PANEL Bili Total 0.7 0.2 - 1.3 03/12/2018 [facility] CHEM PANEL Alk Phos 54 39 - 136 03/12/2018 [facility] CHEM PANEL AST 31 0 - 37 03/12/2018 [facility] CHEM PANEL Albumin Lvl 3.3 3.5 - 5.0 03/12/2018 [facility] CHEM PANEL Globulin 3.1 2.7 - 4.2 03/12/2018 [facility] CHEM PANEL A/G Ratio 1.1 0.7 - 1.6 03/12/2018 [facility] CHEM PANEL ALT 49 0 - 65 03/12/2018 [facility] HEMATOLOGY Basophils 0.5 0.0 - 1.0 03/12/2018 [facility] HEMATOLOGY Lymphocytes # 4.5 1.0 - 5.5 03/12/2018 [facility] HEMATOLOGY Segs-Bands # 6.2 1.5 - 8.1 03/12/2018 [facility] HEMATOLOGY Monocytes 8.5 2.0 - 12.0 03/12/2018 [facility] HEMATOLOGY Eosinophils 1.5 0.0 - 4.0 03/12/2018 [facility] HEMATOLOGY Lymphocytes 37.5 20.0 - 40.0 03/12/2018 [facility] HEMATOLOGY Segs 52.0 45.0 - 75.0 03/12/2018 [facility] HEMATOLOGY Eosinophils # 0.2 0.0 - 0.5 03/12/2018 [facility] HEMATOLOGY Monocytes # 1.0 0.0 - 0.8 03/12/2018 [facility] HEMATOLOGY Basophils # 0.1 0.0 - 0.2 03/12/2018 [facility] HEMATOLOGY INR 1.13 0.85 - 1.17 03/12/2018 [facility] HEMATOLOGY PT 14.5 12.0 - 14.7 03/12/2018 [facility] HEMATOLOGY PTT 47.1 22.9 - 35.8 03/12/2018 [facility] HEMATOLOGY MPV 7.8 7.4 - 10.4 03/12/2018 [facility] HEMATOLOGY Platelet 298 133 - 450 03/12/2018 [facility] HEMATOLOGY MCV 94.2 80.0 - 98.0 03/12/2018 [facility] HEMATOLOGY MCH 34.5 27.0 - 31.0 03/12/2018 [facility] HEMATOLOGY RDW 13.3 11.5 - 14.5 03/12/2018 [facility] HEMATOLOGY MCHC 36.7 32.0 - 36.0 03/12/2018 [facility] HEMATOLOGY Hct 38.8 36.0 - 48.0 03/12/2018 [facility] HEMATOLOGY RBC 4.12 4.20 - 5.40 03/12/2018 [facility] HEMATOLOGY Hgb 14.2 12.0 - 16.0 03/12/2018 [facility] HEMATOLOGY WBC 12.0 3.7 - 10.4 03/12/2018 [facility] HEMATOLOGY INR 1.09 0.85 - 1.17 03/12/2018 [facility] HEMATOLOGY PT 14.1 12.0 - 14.7 03/12/2018 [facility] HEMATOLOGY Basophils # 0.1 0.0 - 0.2 03/12/2018 [facility] HEMATOLOGY Lymphocytes # 5.8 1.0 - 5.5 03/12/2018 [facility] HEMATOLOGY Eosinophils # 0.3 0.0 - 0.5 03/12/2018 [facility] HEMATOLOGY Eosinophils 2.4 0.0 - 4.0 03/12/2018 [facility] HEMATOLOGY Basophils 0.9 0.0 - 1.0 03/12/2018 [facility] HEMATOLOGY Segs-Bands # 4.9 1.5 - 8.1 03/12/2018 [facility] HEMATOLOGY Monocytes 9.3 2.0 - 12.0 03/12/2018 [facility] HEMATOLOGY Monocytes # 1.1 0.0 - 0.8 03/12/2018 [facility] HEMATOLOGY Segs 39.9 45.0 - 75.0 03/12/2018 [facility] HEMATOLOGY Lymphocytes 47.5 20.0 - 40.0 03/12/2018 [facility] HEMATOLOGY RDW 13.4 11.5 - 14.5 03/12/2018 [facility] HEMATOLOGY Platelet 316 133 - 450 03/12/2018 [facility] HEMATOLOGY MPV 7.8 7.4 - 10.4 03/12/2018 [facility] HEMATOLOGY Hgb 14.9 12.0 - 16.0 03/12/2018 [facility] HEMATOLOGY MCH 34.2 27.0 - 31.0 03/12/2018 [facility] MCHC 35.7 32.0 - 36.0 03/12/2018 [facility] HEMATOLOGY RBC 4.35 4.20 - 5.40 03/12/2018 [facility] HEMATOLOGY MCV 96.0 80.0 - 98.0 03/12/2018 [facility] HEMATOLOGY WBC 12.2 3.7 - 10.4 03/12/2018 [facility] HEMATOLOGY Hct 41.8 36.0 - 48.0 03/12/2018 [facility] CHEM PANEL eGFR 58 03/11/2018 Result Comment: [...] should be multiplied by the estimated BMI. [facility] CHEM PANEL BUN 13 7 - 22 03/11/2018 [facility] CHEM PANEL Glucose Lvl 87 70 - 99 03/11/2018 [facility] CHEM PANEL Alk Phos 60 39 - 136 03/11/2018 [facility] CHEM PANEL Creatinine Lvl 1.00 0.50 - 1.40 03/11/2018 [facility] CHEM PANEL Sodium Lvl 140 135 - 145 03/11/2018 [facility] CHEM PANEL Chloride Lvl 107 95 - 109 03/11/2018 [facility] CHEM PANEL CO2 24 24 - 32 03/11/2018 [facility] CHEM PANEL Total Protein 7.0 6.4 - 8.4 03/11/2018 [facility] CHEM PANEL Calcium Lvl 8.9 8.5 - 10.5 03/11/2018 [facility] CHEM PANEL Potassium Lvl 4.6 3.5 - 5.1 03/11/2018 [facility] CHEM PANEL AST 28 0 - 37 03/11/2018 [facility] CHEM PANEL ALT 51 0 - 65 03/11/2018 [facility] CHEM PANEL Albumin Lvl 3.9 3.5 - 5.0 03/11/2018 [facility] CHEM PANEL Bili Total 0.3 0.2 - 1.3 03/11/2018 [facility] CHEM PANEL A/G Ratio 1.3 0.7 - 1.6 03/11/2018 [facility] CHEM PANEL Globulin 3.1 2.7 - 4.2 03/11/2018 [facility] CHEM PANEL B/C Ratio 13 6 - 25 03/11/2018 [facility] CHEM PANEL AGAP 13.6 10.0 - 20.0 03/11/2018 [facility] HEMATOLOGY Basophils # 0.1 0.0 - 0.2 03/11/2018 [facility] HEMATOLOGY Monocytes # 1.0 0.0 - 0.8 03/11/2018 [facility] HEMATOLOGY Eosinophils # 0.3 0.0 - 0.5 03/11/2018 [facility] HEMATOLOGY Lymphocytes # 4.3 1.0 - 5.5 03/11/2018 [facility] HEMATOLOGY Eosinophils 2.8 0.0 - 4.0 03/11/2018 [facility] HEMATOLOGY Basophils 1.0 0.0 - 1.0 03/11/2018 [facility] Segs-Bands # 5.8 1.5 - 8.1 03/11/2018 [facility] HEMATOLOGY Segs 50.1 45.0 - 75.0 03/11/2018 [facility] Lymphocytes 37.1 20.0 - 40.0 03/11/2018 [facility] Monocytes 9.0 2.0 - 12.0 03/11/2018 [facility] LIPIDS CHD Risk 6.91 3.90 - 5.80 03/11/2018 [facility] LIPIDS LDL (Calculated) 73 <=99 mg/dL 03/11/2018 [facility] LIPIDS VLDL 63 03/11/2018 [facility] LIPIDS HDL 23 >=61 mg/dL 03/11/2018 [facility] LIPIDS Trig 315 <=149 mg/dL 03/11/2018 [facility] LIPIDS Chol 159 <=199 mg/dL 03/11/2018 [facility] Pathology Reports No Data Provided for This [...] MRI of the brachial plex us. SL: [id number] 07/25/2018 [facility] Spine cervical wo contrast MRI Clinical Indication: [...] foramina should be confirmed on CT. SL: [id number] 07/25/2018 [facility] Denis Consultation Notes No Data Provided for This Section Discharge Summaries No Data Provided for This Section History and Physicals No Data Provided for This Section Vital Signs Vital Sign Value Date Comments Source Respitory Rate 15 03/13/2018 [facility] Temperature Oral (F) 98.6 F 03/13/2018 [facility] Systolic (mm Hg) 123 03/13/2018 [facility] Diastolic (mm Hg) 59 03/13/2018 [facility] Systolic (mm Hg) 113 03/13/2018 [facility] Diastolic (mm Hg) 74 03/13/2018 [facility] Respitory Rate 15 03/13/2018 [facility] Systolic (mm Hg) 133 03/13/2018 [facility] Diastolic (mm Hg) 69 03/13/2018 [facility] Respitory Rate 18 03/13/2018 [facility] Temperature Oral (F) 98.9 F 03/13/2018 [facility] Temperature Oral (F) 98.3 F 03/13/2018 [facility] Weight 101.3 03/12/2018 [facility] Height 173.99 cm 03/12/2018 [facility] BMI Calculated 33.46 03/12/2018 [facility] Height 175.2 cm 03/11/2018 [facility] BMI Calculated 32.19 03/11/2018 [facility] Weight 98.8 03/11/2018 [facility] Encounters Location Location Details Encounter Type Encounter Number Reason For Visit Attending Provider ADM Date DC Date Status Source OD [id number] 490 - BRONCHITIS NOS WILBERT CHAVES 08/29/2012 [facility] [id number] Ye Thomas 03/12/2018 03/13/2018 [facility] [id number] Shiv Brambila 07/25/2018 07/26/2018 [facility] Procedures Procedure Code Date Perfomer Comments Source Bilateral inguinal hernia repair [id number] [facility] Cervical laminectomy [id number] [facility] Assessment and Plan Assessment and Plan Date [...] seen and examined by me with the 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 CAD - [employer] RCA PCI - done, in ICU overnight 03/13/2018 [facility] Plan of Care No Data Provided for [...] at age: 62; entered on: 03/12/18 03/12/2018 [facility] Family History No Data Provided for This Section Advance Directives No Data Provided for This Section Functional Status No Data Provided for This Section
--- OUTSIDE RECORDS SUMMARY | 2020-07-07 08:19 | XMS REPORT | Continuity of Care Document ---
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 Item Value Reference Range Interpretation Comments Neutrophils # (Auto) (test code = 751-8) 3.5 2.1-6.9 [facility] CenterBlood lymphocytes count (number/volume) 2020-05-31 04:40:00* Test Item Value Reference Range Interpretation Comments Lymphocytes # (Auto) (test code = 86443-7) 3.1 1.0-3.2 [facility] CenterBlood monocytes automated count (number/volume)2020-05-31 04:40:00* Test Item Value Reference Range Interpretation Comments Monocytes # (Auto) (test code = 742-7) 0.9 0.2-0.8 [facility] CenterAutomated blood eosinophil count 2020-05-31 04:40:00* Test Item Value Reference Range Interpretation Comments Eosinophils # (Auto) (test code = 711-2) 0.1 0.0-0.4 [facility] CenterAutomated blood basophil count (count/volume)2020-05-31 04:40:00* Test Item Value Reference Range Interpretation Comments Basophils # (Auto) (test code = 704-7) 0.1 0.0-0.1 [facility] CenterFluoroscopic procedure less than one hour bqtbaods1259-34-09 04:40:00* Test Item Value Reference Range Interpretation Comments Absolute Immature Granulocyte (auto (hiral t code = Absolute Immature Granulocyte (auto) 0.03 0-0.1 [facility]ererum or plasma sodium measurement (moles/volume)2020-05-31 04:40:00* Test Item Value Reference Range Interpretation Comments Sodium Level (test code = 2951-2) 134 136-145 [facility] Centererum or plasma potassium measurement (moles/volume)2020-05-31 04:40:00* Test Item Value Reference Range Interpretation Comments Potassium Level (test code = 2823-3) 4.8 3.5-5.1 [facility] Centererum or plasma chloride measurement (moles/volume)2020-05-31 04:40:00* Test Item Value Reference Range Interpretation Comments Chloride Level (test code = 2075-0) 104 98-107 [facility] Centererum or plasma carbon dioxide, total measurement (moles/volume)2020-05-31 04:40:00* Test Item Value Reference Range Interpretation Comments Carbon Dioxide Level (test code = 2028-9) 24 22-29 [facility] Centererum or plasma anion xsm7156-75-84 04:40:00* Test Item Value Reference Range Interpretation Comments Anion Gap (test code = 47796-4) 10.8 8-16 [facility] Centererum or plasma urea nitrogen measurement (mass/volume)2020-05-31 04:40:00* Test Item Value Reference Range Interpretation Comments Blood Urea Nitrogen (test code = 3094-0) 8 7-26 [facility] Centererum or plasma creatinine measurement (mass/volume)2020-05-31 04:40:00* Test Item Value Reference Range Interpretation Comments Creatinine (test code = 2160-0) 0.70 0.72-1.25 [facility] Centererum or plasma urea nitrogen/creatinine mass ndgko8992-39-24 04:40:00* Test Item Value Reference Range Interpretation Comments BUN/Creatinine Ratio (test code = 3097-3) 11 6- [facility] CenterEstimated glomerular filtration rate (GFR) opjdshthnkmlh5320-06-44 04:40:00* Test Item Value Reference Range Interpretation Comments Estimat Glomerular Filtration Rate (test code = 123670630) > 60 >60 Ranges were taken from the National Kidney Disease Education Program and the [facility] Kid[facility] Foundation literature.Reference ranges:60 or greater: Ptlamv01-76 ( for 3 consecutive months): Chronic kidney disease 15 or less: Kidney failureVal [facility]de Regional Medical CenterGlucose qskhfpsrriv9325-87-24 04:40:00* Test Item Value Reference Range Interpretation Comments Glucose Level (test code = JRP2927) 93 74-118 [facility] Centererum or plasma calcium measurement (mass/volume)2020-05-31 04:40:00* Test Item Value Reference Range Interpretation Comments Calcium Level (test code = 44207-7) 8.4 8.4-10.2 [facility] CenterPhosphorus wwbyhyxhowr2199-22-76 04:40:00 * Test Item Value Reference Range Interpretation Comments Phosphorus Level (test code = QYS5770) 3.6 2.3-4.7 [facility] Centererum or plasma magnesium measurement (mass/volume)2020-05-31 04:40:00* Test Item Value Reference Range Interpretation Comments Magnesium Level (test code = 54736-0) 1.7 1.3-2.1 [facility] Centererum or plasma creatine kinase measurement (enzymatic activity/volume)2020-05-30 09:55:00* Test Item Value Reference Range Interpretation Comments Creatine Kinase (test code = 2157-6) 36 30-200 [facility] Centererum or plasma creatine kinase MB measurement (mass/volume)2020-05-30 09:55:00* Test Item Value Reference Range Interpretation Comments Creatine Kinase MB (test code = 12283-3) 1.00 0-5.0 [facility] CenterTroponin I measurement by highly sensitive enzyme kcllhlolqcj3023-59-33 09:55:00* Test Item Value Reference Range Interpretation Comments Troponin I (test code = 48067-8) < 0.001 0-0.300 [facility] CenterCT CHEST V2552-97-27 15:46:00 [facility] [address] [place] [address] Patient Name: JOSEPH LONGO MR #: [id number] : 1950 Age/Sex: 70/M Req #: [id number] Adm Physician: MIR DIALLO MD Ordered by: ADWOA ARNOLD MD Report #: [id number] Location: MED/[address]/Bed: [facility] Procedure: CT/CT CHES T W Exam Date: 05/29/20 [...] Bilirubin (test code = 1975-2) 0.7 0.2-1.2 [facility] CenterFluoroscopic procedure less than one hour uzrkxkea2582-29-22 04:50:00* Test Item Value Reference Range Interpretation Comments Aspartate Amino Transf (AST/SGOT) (test code = Aspartate Amino Transf (AST/SGOT)) 20 5-34 [facility] Centererum or plasma alanine aminotransferase measurement (enzymatic activity/volume)2020-05-29 04:50:00* Test Item Value Reference Range Interpretation Comments Alanine Aminotransferase (ALT/SGPT) (test code = 1742-6) 25 0-55 [facility] Centererum or plasma protein measurement (mass/volume)2020-05-29 04:50:00* Test Item Value Reference Range Interpretation Comments Total Protein (test code = 2885-2) 6.1 6.5-8.1 [facility] Centererum or plasma albumin measurement (mass/volume)2020-05-29 04:50:00* Test Item Value Reference Range Interpretation Comments Albumin (test code = 1751-7) 3.0 3.5-5.0 [facility] CenterPlasma globulin measurement (mass/volume) 2020-05-29 04:50:00* Test Item Value Reference Range Interpretation Comments Globulin (test code = 60470-3) 3.1 2.3-3.5 [facility] Centererum or plasma albumin/globulin mass tiewh8151-64-16 04:50:00* Test Item Value Reference Range Interpretation Comments Albumin/Globulin Ratio (test code = 1759-0) 1.0 0.8-2.0 [facility] Centererum or plasma alkaline phosphatase measurement (enzymatic activity/volume)2020-05-29 04:50:00* Test Item Value Reference Range Interpretation Comments Alkaline Phosphatase (test code = 6768-6) 84 40-150 [facility] CenterFluoroscopic procedure less than one hour chjeolfk5624-75-73 16:52:00* Test Item Value Reference Range Interpretation Comments Coronavirus (PCR) (test code = Coronavirus (PCR)) NOT DETECTED NOTD ETECTED [employer] SARS-CoV-2 assay is a nucleic amplification test intended for the qualitative detection of RNA from SARS-CoV-2 from nasopharyngeal (CAT CR[employer]ER OPERATOR) specimens . It is used under Emergency [...] for reprat testing oc clinically indicated.Tesing performed by:[facility] [address] [place] [address] [id number], Trae Cheung MD, PhD [facility] CenterUrine color qsesnnpwaaant7235-80-79 14:55:00* Test Item Value Reference Range Interpretation Comments Urine Color (test code = 5778-6) STRAW YELLOW [facility] CenterUrine ghbvcjk6202-19-55 14:55:00* Test Item Value Reference Range Interpretation Comments Urine Clarity (test code = 68300-0) SL CLOUDY CLEAR [facility] Centerpecific gravity of Urine by Test strip 2020-05-28 14:55:00* Test Item Value Reference Range Interpretation Comments Urine Specific [place] (test code = 5811-5) 1.025 1.010-1.02 5 [facility] CenterUrine pH measurement by automated test iwrxa8096-46-86 14:55:00* Test Item Value Reference Range Interpretation Comments Urine pH (test code = 99946-3) 6 5-7 [facility] CenterUrine leukocyte esterase detection by ovpwsfwx0828-73-28 14:55:00* Test Item Value Reference Range Interpretation Comments Urine Leukocyte Esterase (test code = 5799-2) NEGATIVE NEGATIVE [facility] CenterUrine nitrite sntygyqcq8318-91-39 14:55:00* Test Item Value Reference Range Interpretation Comments Urine Nitrite (test code = 11625-1) NEGATIVE NEGATIVE [facility] CenterUrine protein measurement by test strip (mass/volume)2020-05-28 14:55:00* Test Item Value Reference Range Interpretation Comments Urine Protein (test code = 5804-0) 1+ NEGATIVE [facility] CenterUrine glucose vjjxvlpbq5143-64-14 14:55:00* Test Item Value Reference Range Interpretation Comments Urine Glucose (UA) (test code = 2349-9) NEGATIVE NEGATIVE [facility] CenterUrine ketones detection by automated test smphl4902-59-38 14:55:00* Test Item Value Reference Range Interpretation Comments Urine Ketones (test code = 14210-4) NEGATIVE NEGATIVE [facility] CenterUrine urobilinogen measurement by test strip (mass/volume)2020-05-28 14:55:00* Test Item Value Reference Range Interpretation Comments Urine Urobilinogen (test code = 94663-9) 1 0.2-1 [facility] CenterUrine total bilirubin measurement (mass/volume)2020-05-28 14:55:00* Test Item Value Reference Range Interpretation Comments Urine Bilirubin (test code = 1978-6) NEGATIVE NEGATIVE [facility] CenterUrine erythrocytes btxihieut9109-80-30 14:55:00* Test Item Value Reference Range Interpretation Comments Urine Blood (test code = 53802-7) NEGATIVE NEGATIVE [facility] CenterAutomated urine sediment leukocyte count by microscopy (number/high power field)2020-05-28 14:55:00* Test Item Value Reference Range Interpretation Comments Urine WBC (test code = 5821-4) NONE 0-5 [facility] CenterErythrocytes detection in urine sediment by light zuslyakdad3998-96-32 14:55:00* Test Item Value Reference Range Interpretation Comments Urine RBC (test code = 84199-7) NONE 0-5 [facility] CenterBacteria detection in urine sediment by light idauywcfnd3119-42-90 14:55:00* Test Item Value Reference Range Interpretation Comments Urine Bacteria (test code = 75956-0) RARE NONE [facility] CenterEpithelial cells detection in urine sediment by light acxmrrbysp6266-18-10 14:55:00* Test Item Value Reference Range Interpretation Comments Urine Epithelial Cells (test code = 06142-8) NONE NONE [facility] CenterFluoroscopic procedure less than one hour buyjydda5313-84-47 14:36:00* Test Item Value Reference Range Interpretation Comments Lactic Acid Level (test code = Lactic Acid Level) 0.7 0.5- 2.0 [facility] CenterCHEST SINGLE (PORTABLE)2020-05-28 11:41:00 [place] [address] Patient Name: JOSEPH LONGO MR #: [id number] : 1950 Age/Sex: 70/M Req #: [id number] Adm Physician: Ordered by: MAGDY MUÑOZ DO Report #: [id number] Location: ER Room/Bed: Procedure: [id number] DX/CHEST SI NGLE (PORTABLE) Exam Date: 05/28/20 Exam Time: 1110 REPORT STATUS: Signed EXAMINATIO N: CHEST SINGLE (PORTABLE) INDICATION: Chest pain COMPARISON: [facility] radiograph 04/01/2020 FINDINGS: LINES/TUBES:None LUNGS:The [...] 1142 COPY TO: MAGDY MUÑOZ DO Blood cclamqx5550-38-28 11:18:00* Test Item Value Reference Range Interpretation Comments Blood Culture (test code = 19979065) NO GROWTH AFTER 72 HOURS [facility]- PET[facility]CT [facility]OR [facility]172-[facility]-29 15:37:00 FAX: Chapin Hernandez [phone] [place]: St: REG FAX: Adwoa Martínez [phone] Name: JOSEPH LONGO [facility] : 1950 Age/S: 70/M [address] [facility] Unit #: [id number] Loc: [place] [address] Phys: Adwoa Arnold MD Acct: [id number] Dis Date: Status: REG CLI PHONE #: [phone] Exam Date: 04/26/2020 1045 FAX #: [phone] Reason: CELL LUNG CA EXAMS: CPT CODE: [id number] PET/CT TUMOR SK MIDTH 88834 HISTORY: Staging lung cancer. COMPARISON: None available. Location: [facility]. PET/CT SCAN: 10.6 mCi of FDG administered. [...] Signed Repo rt (CONTINUED) FAX: Chapin Hernandez [place]: B St: REG FAX: Adwoa Martínez [phone] ------ Name: JOSEPH LONGO [facility] : [birth year] Age/S: 70/M [address] [facility] Unit #: [id number] Loc: [place] [address] Phys: Patricia Arnold MD Acct: [id number] Dis Date: Status: REG CLI PHONE #: Exam Date: 04/26/2020 1045 FAX #: [phone] Reason: CELL LUNG CA EXAMS: CPT CODE: [id number] PET/CT TUMOR SK BS MIDTH 86930 <Continued> CC: Dr. Chapin Lee; Adwoa Arnold MD Technologist: AYUSH HOLBROOK Trnilrd Date/Time/By: 04/26/2020 (1304) : By: [email or web address] Orig Print D/T: S: 04/26/2020 (8983) PAGE 2 Signed Report - MRI BRAIN W WO ZNKR4567-67-51 09:44:00 FAX: Chapin Hernandez [phone] [place]: B St: REG FAX: Adwoa Martínez [phone] Name: JOSEPH LONGO [facility] : 1950 Age/S: 70/M [address] [facility]: [id number] Loc: [place] [address] Phys: Adwoa Arnold MD Acct: [id number] Dis Date: Status: REG CLI PHONE #: [phone] Exam Date: 04/26/2020 0936 FAX #: [phone] Reason: CELL LUNG CA EXAMS: CPT CODE: [id number] MRI BRAIN W WO CONT 314[address] HISTORY: Staging lung cancer. COMPARISON: None milo [...] Arnold MD Technologist: CANDY RICHARDSON,RT - MRI Trnilrd Date/Time/By: 04/26/2020 (0933) : By: [email or web address] Orig Print D/T: S: 04/26/2020 (5257) PAGE 1 Signed Report CREATININE W ESTIMATED SPG8923-18-43 08:45:00* Test Item Value Reference Range Interpretation Comments BEDSIDE CREATININE (test code = CREATBED) mg/dL 0.7-1.3 L GLOMERULAR FILTRATION RATE POC (test code = GFRBED) 125 >6 0 H CREATININE W ESTIMATED UPO5056-61-10 08:45:00* Test Item Value Reference Range Interpretation Comments BEDSIDE CREATININE (test code = CREATBED) 0.63 mg/dL 0.7-1.3 L GLOMERULAR FILTRATION RATE POC (test code = GFRBED) > 60 >6 0 H Previously reported result: 125 Edited by: TELLO on 04/26/20:22600504/26/20 0845: GFRBED previously reported as: 125 H CHEST SINGLE (PORTABLE)2020-04-01 14:27:00 [place] [address] Patient Name: JOSEPH LONGO MR #: [id number] : 1950 Age/Sex: 69/M Req #: [id number] Adm Physician: Ordered by: MOON SCHWARTZ MD Report #: [id number] Location: CT Room/Bed: Procedure: [id number] DX/CHEST SINGLE ( PORTABLE) Exam Date: 04/01/20 [...] PM Dictated By : MOON SCHWARTZ MD 142 Trans cribed By: RADHA on 04/01/20 1427 COPY TO: MOON SCHWARTZ MD BIOPSY HXXD6965-29-54 13:34:00 [place] [address] Patient Name: JOSEPH LONGO MR #: [id number] : 1950 Age/Sex: 69/M Req #: [id number] Adm Physician: Ordered by: SHERON KWON MD Report #: [id number] Location: CT Room/Bed: Procedure: IR/BIOPSY KVNG NG Exam Date: 04/01/20 Exam Time: 908 REPORT [...] needle: 19 gauge Core needle biopsy device: nprogress Core needle size: 20 gauge Nu mber [...] 1:37 PM Dictated By: MOON SCHWARTZ MD 1332 COPY TO: NICANOR KWON MD, [facility] CHEST SINGLE (PORTABLE)2020-04-01 12:57:00 [place] [address] Patient Name: JOSEPH LONGO MR #: [id number] : 1950 Age/Sex: 69/M Req #: [id number] Adm Physician: Ordered by: MOON SCHWARTZ MD Report #: [id number] Location: CT Room/Bed: Procedure: [id number] DX/CHEST SINGLE ( PORTABLE) Exam Date: 04/01/20 [...] MOON SCHWARTZ MD CHEST SINGLE (PORTABLE)2020-04-01 12:42:00 [place] [address] Patient Name: JOSEPH LONGO MR #: [id number] : 1950 Age/Sex: 69/M Req #: [id number] Adm Physician: Ordered by: MOON SCHWARTZ MD Report #: [id number] Location: CT Room/Bed: Procedure: [id number] DX/CHEST SINGLE ( PORTABLE) Exam Date: 04/01/20 [...] Count (test code = 6690-2) 11.37 4.8-10.8 [facility] CenterBlaustin [facility] erythrocytes automated count (number/volume)2020-03-24 05:50:00* Test Item Value Reference Range Interpretation Comments Red Blood Count (test code = 789-8) 3.75 4.3-5.7 [facility] CenterBlood hemoglobin measurement (moles/volume)2020-03-24 05:50:00* Test Item Value Reference Range Interpretation Comments Hemoglobin (test code = 06793-4) 12.7 14.0-18.0 [facility] CenterAutomated blood hematocrit (volume fraction)2020-03-24 05:50:00* Test Item Value Reference Range Interpretation Comments Hematocrit (test code = 4544-3) 35.4 38.2-49.6 [facility] CenterAutomated erythrocyte mean corpuscular kljpzw2738-89-15 05:50:00* Test Item Value Reference Range Interpretation Comments Mean Corpuscular Volume (test code = 787-2) 94.4 81-99 [facility] CenterAutomated erythrocyte mean corpuscular hemoglobin (mass per erythrocyte)2020-03-24 05:50:00* Test Item Value Reference Range Interpretation Comments Mean Corpuscular Hemoglobin (test code = 785-6) 33.9 28-32 [facility] CenterAutomated erythrocyte mean corpuscular hemoglobin concentration measurement (mass/volume)2020-03-24 05:50:00* Test Item Value Reference Range Interpretation Comments Mean Corpuscular Hemoglobin Concent (test code = 786-4) 35.9 31-35 [facility] CenterRDW RcjCv-Iwl8655-96-03 05:50:00* Test Item Value Reference Range Interpretation Comments Red Cell Distribution Width (test code = 95077-9) 13.9 11.7 -14.4 [facility] CenterAutomated blood platelet count (count/volume)2020-03-24 05:50:00* Test Item Value Reference Range Interpretation Comments Platelet Count (test code = 777-3) 333 140-360 [facility] CenterAutomated blood segmented neutrophil count as percentage of total elbrugvoxn9993-82-60 05:50:00* Test Item Value Reference Range Interpretation Comments Neutrophils (%) (Auto) (test code = 94319-9) 53.2 38.7-80.0 [facility] CenterAutomated blood lymphocyte count as percentage ot total lldldsrcot8843-14-57 05:50:00* Test Item Value Reference Range Interpretation Comments Lymphocytes (%) (Auto) (test code = 736-9) 33.9 18.0-39.1 [facility] CenterAutomated blood monocyte count as percentage of total fnepiiknpi9698-27-37 05:50:00* Test Item Value Reference Range Interpretation Comments Monocytes (%) (Auto) (test code = 5905-5) 10.0 4.4-11.3 [facility] CenterAutomated blood eosinophil count as percentage of total wnueffbmkg0560-95-81 05:50:00* Test Item Value Reference Range Interpretation Comments Eosinophils (%) (Auto) (test code = 713-8) 2.2 0.0-6.0 [facility] CenterAutomated blood basophil count as percentage of total gemikfjhbh0716-82-51 05:50:00* Test Item Value Reference Range Interpretation Comments Basophils (%) (Auto) (test code = 706-2) 0.4 0.0-1.0 [facility] CenterFluoroscopic procedure less than one hour womjkpqz1998-27-83 05:50:00* Test Item Value Reference Range Interpretation Comments IM GRANULOCYTES % (test code = IM GRANULOCYTES %) 0.3 0.0- 1.0 [facility] CenterAutomated blood neutrophil count 2020-03-24 05:50:00* Test Item Value Reference Range Interpretation Comments Neutrophils # (Auto) (test code = 751-8) 6.0 2.1-6.9 [facility] CenterBlaustin [facility] lymphocytes count (number/volume) 2020-03-24 05:50:00* Test Item Value Reference Range Interpretation Comments Lymphocytes # (Auto) (test code = 14625-9) 3.9 1.0-3.2 [facility] CenterBlaustin [facility] monocytes automated count (number/volume)2020-03-24 05:50:00* Test Item Value Reference Range Interpretation Comments Monocytes # (Auto) (test code = 742-7) 1.1 0.2-0.8 [facility] CenterAutomated blood eosinophil count 2020-03-24 05:50:00* Test Item Value Reference Range Interpretation Comments Eosinophils # (Auto) (test code = 711-2) 0.3 0.0-0.4 [facility] CenterAutomated blood basophil count (count/volume)2020-03-24 05:50:00* Test Item Value Reference Range Interpretation Comments Basophils # (Auto) (test code = 704-7) 0.1 0.0-0.1 [facility] CenterFluoroscopic procedure less than one hour zujrowng7787-56-94 05:50:00* Test Item Value Reference Range Interpretation Comments Absolute Immature Granulocyte (auto (hiral t code = Absolute Immature Granulocyte (auto) 0.03 0-0.1 [facility] CenterProthrombin time (PT) in platelet poor plasma by coagulation izkzt0813-90-57 05:50:00* Test Item Value Reference Range Interpretation Comments Prothrombin Time (test code = 5902-2) 12.5 11.9-14.5 [facility] CenterINR in Platelet poor plasma by Coagulation rqcqf6909-53-45 05:50:00* Test Item Value Reference Range Interpretation Comments Prothromb Time International Ratio (test code = 6301-6) 0.88 Oral Anticoagulant Therapy INR Values:1. Low Intensity Therapy 1.5 - 2.02 . Moderate Intensity Therapy 2.0 - 3.03. High Intensity Therapy(1) 2.5 - 3. 54. High Intensity Therapy(2) 3.0 - 4.05. Panic Value INR > 5.0 [facility] sodium measurement (moles/volume)2020-03-24 05:50:00* Test Item Value Reference Range Interpretation Comments Sodium Level (test code = 2951-2) 141 136-145 [facility]ererum or plasma potassium measurement (moles/volume)2020-03-24 05:50:00* Test Item Value Reference Range Interpretation Comments Potassium Level (test code = 2823-3) 4.6 3.5-5.1 [facility]ererum or plasma chloride measurement (moles/volume)2020-03-24 05:50:00* Test Item Value Reference Range Interpretation Comments Chloride Level (test code = 2075-0) 106 98-107 [facility]ererum or plasma carbon dioxide, total measurement (moles/volume)2020-03-24 05:50:00* Test Item Value Reference Range Interpretation Comments Carbon Dioxide Level (test code = 2028-9) 26 22-29 [facility]ererum or plasma anion vxf5735-42-33 05:50:00* Test Item Value Reference Range Interpretation Comments Anion Gap (test code = 15527-4) 13.6 8-16 [facility]ererum or plasma urea nitrogen measurement (mass/volume)2020-03-24 05:50:00* Test Item Value Reference Range Interpretation Comments Blood Urea Nitrogen (test code = 3094-0) 13 05-16 [facility]ererum or plasma creatinine measurement (mass/volume)2020-03-24 05:50:00* Test Item Value Reference Range Interpretation Comments Creatinine (test code = 2160-0) 0.86 0.72-1.25 [facility]ererum or plasma urea nitrogen/creatinine mass mzufh8065-31-01 05:50:00* Test Item Value Reference Range Interpretation Comments BUN/Creatinine Ratio (test code = 3097-3) 15 04-15 [facility] CenterEstimated glomerular filtration rate (GFR) qbeyfsvaapmiy7879-62-28 05:50:00* Test Item Value Reference Range Interpretation Comments Estimat Glomerular Filtration Rate (test code = 456459676) > 60 >60 Ranges were taken from the National Kidney Disease Education Program and the [facility] Kid[facility] Foundation literature.Reference ranges:60 or greater: Sgvjaw50-51 ( for 3 consecutive months): Chronic kidney disease 15 or less: Kidney failureVal Verde Regional Medical CenterGlucose eetnqvxlmjj2027-38-84 05:50:00* Test Item Value Reference Range Interpretation Comments Glucose Level (test code = JFQ1961) 93 74-118 [facility]ererum or plasma calcium measurement (mass/volume)2020-03-24 05:50:00* Test Item Value Reference Range Interpretation Comments Calcium Level (test code = 72877-2) 8.9 8.4-10.2 [facility]ererum or plasma magnesium measurement (mass/volume)2020-03-24 05:50:00* Test Item Value Reference Range Interpretation Comments Magnesium Level (test code = 49592-1) 1.9 1.3-2.1 [facility]ererum or plasma total bilirubin measurement (mass/volume)2020-03-24 05:50:00* Test Item Value Reference Range Interpretation Comments Total Bilirubin (test code = 1975-2) 0.5 0.2-1.2 [facility] CenterFluoroscopic procedure less than one hour ppxuhqrg1318-31-09 05:50:00* Test Item Value Reference Range Interpretation Comments Aspartate Amino Transf (AST/SGOT) (test code = Aspartate Amino Transf (AST/SGOT)) 14 5-34 [facility] Centererum or plasma alanine aminotransferase measurement (enzymatic activity/volume)2020-03-24 05:50:00* Test Item Value Reference Range Interpretation Comments Alanine Aminotransferase (ALT/SGPT) (test code = 1742-6) 13 0-55 [facility]ererum or plasma protein measurement (mass/volume)2020-03-24 05:50:00* Test Item Value Reference Range Interpretation Comments Total Protein (test code = 2885-2) 6.6 6.5-8.1 [facility]ererum or plasma albumin measurement (mass/volume)2020-03-24 05:50:00* Test Item Value Reference Range Interpretation Comments Albumin (test code = 1751-7) 3.4 3.5-5.0 [facility] CenterPlasma globulin measurement (mass/volume) 2020-03-24 05:50:00* Test Item Value Reference Range Interpretation Comments Globulin (test code = 62708-7) 3.2 2.3-3.5 [facility]ererum or plasma albumin/globulin mass oilfk1491-30-65 05:50:00* Test Item Value Reference Range Interpretation Comments Albumin/Globulin Ratio (test code = 1759-0) 1.1 0.8-2.0 [facility]ererum or plasma alkaline phosphatase measurement (enzymatic activity/volume)2020-03-24 05:50:00* Test Item Value Reference Range Interpretation Comments Alkaline Phosphatase (test code = 6768-6) 74 40-150 [facility] CenterProthrombin time (PT) in platelet poor plasma by coagulation hqxcj5107-76-65 05:50:00* Test Item Value Reference Range Interpretation Comments Prothrombin Time (test code = 5902-2) 12.5 11.9-14.5 [facility] CenterINR in Platelet poor plasma by Coagulation gxyos1791-48-17 05:50:00* Test Item Value Reference Range Interpretation Comments Prothromb Time International Ratio (test code = 6301-6) 0.88 Oral Anticoagulant Therapy INR Values:1. Low Intensity Therapy 1.5 - 2.02 . Moderate Intensity Therapy 2.0 - 3.03. High Intensity Therapy(1) 2.5 - 3. 54. High Intensity Therapy(2) 3.0 - 4.05. Panic Value INR > 5.0 [facility] CenterFluoroscopic procedure less than one hour wapazfkk9215-17-73 05:20:00* Test Item Value Reference Range Interpretation Comments Hemoglobin A1c Percent (test code = Hemoglobin A1c Percent) 4.6 4.0-7.0 [facility]ererum or plasma triglyceride measurement (mass/volume)2020-03-23 05:20:00* Test Item Value Reference Range Interpretation Comments Triglycerides Level (test code = 2571-8) 135 0-149 [facility]ererum or plasma cholesterol measurement (mass/volume)2020-03-23 05:20:00* Test Item Value Reference Range Interpretation Comments Cholesterol Level (test code = 2093-3) 69 0-199 Less than 200 mg/dL Low Wxvl462 - 239 mg/dL Borderline Fotp804 m g/dl and greater High Risk [facility]ererum or plasma cholesterol in LDL measurement (mass/volume) 2020-03-23 05:20:00* Test Item Value Reference Range Interpretation Comments LDL Cholesterol (test code = 2089-1) 17 60-130 [facility]ererum or plasma cholesterol in HDL measurement (mass/volume)2020-03-23 05:20:00* Test Item Value Reference Range Interpretation Comments HDL Cholesterol (test code = 2085-9) 25 40-60 [facility] Centererum or plasma total cholesterol/cholesterol in HDL mass ptwaz8000-57-80 05:20:00* Test Item Value Reference Range Interpretation Comments Cholesterol/HDL Ratio (test code = 9830-1) 2.8 3.9-4.7 [facility]ererum or plasma creatine kinase measurement (enzymatic activity/volume)2020-03-23 05:20:00* Test Item Value Reference Range Interpretation Comments Creatine Kinase (test code = 2157-6) 100 30-200 [facility] Centererum or plasma creatine kinase MB measurement (mass/volume)2020-03-23 05:20:00* Test Item Value Reference Range Interpretation Comments Creatine Kinase MB (test code = 79479-8) 2.40 0-5.0 [facility] CenterTroponin I measurement by highly sensitive enzyme avxfbcoyrad0940-70-82 05:20:00* Test Item Value Reference Range Interpretation Comments Troponin I (test code = 57731-1) 0.003 0-0.300 [facility] Centererum or plasma thyrotropin measurement by detection limit <= 0.005 miu/l (units/volume)2020-03-23 05:20:00* Test Item Value Reference Range Interpretation Comments Thyroid Stimulating Hormone (TSH) (test code = 82542-3) 1.127 0.350-4.940 [facility]ererum or plasma carcinoembryonic antigen measurement (mass/volume)2020-03-23 05:20:00* Test Item Value Reference Range Interpretation Comments Carcinoembryonic Antigen (test code = 2039-6) 1.3 0.0-4.7 Nonsmokers <3.9 Smokers <5.6[employer] Electrochemiluminescence Immunoassay(ECLIA)Values obtained with different assay methods or kitscannot be used interchangeably. Results cannot beinterpreted as absolute evidence of the presence orabsence of malignant disease.Performed at: - [facility] [id number] Director: Greyson Phoenix MD, Phone: [phone] Verde Regional Medical CenterFluoroscopic procedure less than one hour telvxpsw5630-04-68 05:20:00* Test Item Value Reference Range Interpretation Comments Hemoglobin A1c Percent (test code = Hemoglobin A1c Percent) 4.6 4.0-7.0 [facility]ererum or plasma triglyceride measurement (mass/volume)2020-03-23 05:20:00* Test Item Value Reference Range Interpretation Comments Triglycerides Level (test code = 2571-8) 135 0-149 [facility]ererum or plasma cholesterol measurement (mass/volume)2020-03-23 05:20:00* Test Item Value Reference Range Interpretation Comments Cholesterol Level (test code = 2093-3) 69 0-199 Less than 200 mg/dL Low Zykt214 - 239 mg/dL Borderline Ohmg047 m g/dl and greater High Risk [facility]ererum or plasma cholesterol in LDL measurement (mass/volume) 2020-03-23 05:20:00* Test Item Value Reference Range Interpretation Comments LDL Cholesterol (test code = 2089-1) 17 60-130 [facility]ererum or plasma cholesterol in HDL measurement (mass/volume)2020-03-23 05:20:00* Test Item Value Reference Range Interpretation Comments HDL Cholesterol (test code = 2085-9) 25 40-60 [facility] Centererum or plasma total cholesterol/cholesterol in HDL mass ogiyq7591-93-21 05:20:00* Test Item Value Reference Range Interpretation Comments Cholesterol/HDL Ratio (test code = 9830-1) 2.8 3.9-4.7 [facility] Centererum or plasma thyrotropin measurement by detection limit <= 0.005 miu/l (units/volume)2020-03-23 05:20:00* Test Item Value Reference Range Interpretation Comments Thyroid Stimulating Hormone (TSH) (test code = 34710-9) 1.127 0.350-4.940 [facility] Centererum or plasma carcinoembryonic antigen measurement (mass/volume)2020-03-23 05:20:00* Test Item Value Reference Range Interpretation Comments Carcinoembryonic Antigen (test code = 2039-6) 1.3 0.0-4.7 Nonsmokers <3.9 Smokers <5.6[employer] Electrochemiluminescence Immunoassay(ECLIA)Values obtained with different assay methods or kitscannot be used interchangeably. Results cannot beinterpreted as absolute evidence of the presence orabsence of malignant disease.Performed at: - [facility] [id number] Director: Greyson Phoenix MD, Phone: [phone] Verde Regional Medical CenterCT CHEST W5272-93-61 03:21:00 [facility] [address] [place] [address] Patient Name: JOSEPH LONGO MR #: [id number] : 1950 Age/Sex: 69/M Req #: [id number] Adm Physician: Ordered by: JUNIOR MARCUM rt #: [id number] Location: ER Room/Be d: Procedure: [id number] CT/CT CHEST W Exam Date: 03/22/20 Exam [...] DO Fluoroscopic procedure less than one hour qgrlniut6290-78-21 02:58:00* Test Item Value Reference Range Interpretation Comments Coronavirus (PCR) (test code = Coronavirus (PCR)) NOT DETECTED NOTD ETECTED SARS-COV2/RT-PCRNegative results do not preclude SARS-CoV-2 infection and should not be used as the sole basis for patient management decisions. Negative result s must be combined with clinical observations, patient history, and epidemiologi rdaha information. A false negative result may occur [...] under 564(g) of the ACT.Testing performed by [facility] [place] [id number] Verde Regional Medical CenterFluoroscopic procedure less than one hour duration 2020-03-22 02:50:00* Test Item Value Reference Range Interpretation Comments Lactic Acid Level (test code = Lactic Acid Level) 1.2 0.5- 2.0 [facility] CenterBlood cipprum8079-74-11 02:50:00* Test Item Value Reference Range Interpretation Comments Blood Culture (test code = 67518502) NO GROWTH AFTER 48 HOURS [facility] CenterCapillary blood glucose measurement by glucometer (mass/volume)2020-03-22 00:40:00* Test Item Value Reference Range Interpretation Comments Bedside Glucose (test code = 73259-6) 161 70-120 Meter ID: [id number] Verde Regional Medical CenterCapillary blood glucose measurement by glucometer (mass/volume)2020-03-22 00:40:00* Test Item Value Reference Range Interpretation Comments Bedside Glucose (test code = 60810-2) 161 70-120 Meter ID: [id number] [facility] Bld-mCnc 2020-03-22 00:35:00* Test Item Value Reference Range Interpretation Comments B-Type Natriuretic Peptide (test code = 14674-9) 17.4 0-100 [facility] Centererum or plasma lipase measurement (enzymatic activity/volume)2020-03-22 00:35:00* Test Item Value Reference Range Interpretation Comments Lipase (test code = 3040-3) 61 8-78 [facility]d-mBwo9667-69-27 00:35:00* Test Item Value Reference Range Interpretation Comments B-Type Natriuretic Peptide (test code = 66180-4) 17.4 0-100 [facility] Centererum or plasma lipase measurement (enzymatic activity/volume)2020-03-22 00:35:00* Test Item Value Reference Range Interpretation Comments Lipase (test code = 3040-3) 61 8-78 [facility] CenterABDOMEN-1VIEW (KUB)2019-06-02 10:49:00 [place] [address] Patient Name: JOSEPH LONGO MR #: [id number] : [birth year] Age/Sex: 69/M Req #: [id number] Adm Physician: Ordered by: GEETA GHOTRA MD Report #: [id number] Location: [facility] Room/Bed: Procedure: [id number] DX/ABD OMEN-1VIEW (KUB) Exam Date: 06/02/19 Exam [...] TO: GEETA GHOTRA MD CT CERVICAL SPINE FX3329-76-16 17:52:[address], [place], [place] [address] Patient Name: JOSEPH LONGO MR #: [id number] : 1950 Age/Sex: 68/M Req #: [id number] Adm Physician: Ordered by: GAURAV CAMARILLO MD Report #: [id number] Location: ER Room/Bed: Procedure: [id number] CT/CT CERVICAL SPINE WO Tod xam Date: 04/17/18 Exam Time: 1708 REPORT [...] CAMARILLO MD CT BRAIN WO 2018-04-17 17:52:00 [place] [address] Patient Name: JOSEPH LONGO MR #: [id number] : 1950 Age/Sex: 68/M Req #: [id number] Adm Physician: Ordered by: GAURAV CAMARILLO MD Report #: [id number] Location: ER Room/Bed: Procedure: [id number] CT/CT BRAIN WO Exam Date: 04/17/18 Exam [...] GAURAV CAMARILLO MD CHEST SINGLE (PORTABLE)2018-04-17 17:45:00 [place] [address] Patient Name: JOSEPH LONGO MR #: [id number] : 1950 Age/Sex: 68/M Req #: [id number] Adm Physician: Ordered by: GAURAV CAMARILLO MD Report #: [id number] Location: ER Room/Bed: Procedure: [id number] DX/CHEST SINGLE (PORTABLE) Exam Date: 04/17/18 Exam [...] at 17:45 Dictated By: ROBERT VALLE MD E lectronically Signed By: ROBERT VALLE MD on 04/17/181744 Transcribed By: [facility] E on 04/17/181744 COPY TO: GAURAV CAMARILLO MD SHOULDER LEFT HCIQXUPK2277-02-33 17:42:00 [place] [address] Patient Name: JOSEPH LONGO MR #: [id number] : 1950 Age/Sex: 68/M Req #: [id number] Adm Physician: Ordered by: AGURAV CAMARILLO MD Report #: [id number] Location: ER Room/Bed: Procedure: [id number] DX/SHOULDER LEFT COMPLETE Exam Date: 04/17/18 Exam Time: 8 REPORT STA TUS: Signed PROCEDURE: X-RAY LEFT [...] Comments Creatine Kinase MB (test code = 96010-2) 4.20 0-5.0 [facility] CenterTroponin B6595-27-05 17:35:00* Test Item Value Reference Range Interpretation Comments Troponin I (test code = EFH4595) -0.001 0-0.300 [facility] Centerodium Kjimt9618-84-68 17:29:00* Test Item Value Reference Range Interpretation Comments Sodium Level (test code = 2951-2) 140 136-145 [facility] CenterPotassium Nlunp2979-76-66 17:29:00* Test Item Value Reference Range Interpretation Comments Potassium Level (test code = 2823-3) 4.4 3.5-5.1 [facility] CenterChloride Wvrff0281-18-09 17:29:00* Test Item Value Reference Range Interpretation Comments Chloride Level (test code = 2075-0) 107 98-107 [facility] CenterCarbon Dioxide Gyhdq4417-49-31 17:29:00* Test Item Value Reference Range Interpretation Comments Carbon Dioxide Level (test code = 2028-9) 20 22-29 L [facility] CenterAnion Kof5971-24-03 17:29:00* Test Item Value Reference Range Interpretation Comments Anion Gap (test code = 01297-8) 17.4 8-16 H [facility] CenterBlood Urea Hfginvvf8910-73-81 17:29:00* Test Item Value Reference Range Interpretation Comments Blood Urea Nitrogen (test code = 3094-0) 22 7-26 [facility] CenterCreatinine2018-06-27 17:29:00* Test Item Value Reference Range Interpretation Comments Creatinine (test code = 2160-0) 1.20 0.72-1.25 [facility] CenterBUN/Creatinine Qojmy2225-49-77 17:29:00* Test Item Value Reference Range Interpretation Comments BUN/Creatinine Ratio (test code = 3097-3) 18 6-25 [facility] CenterEstimat Glomerular Filtration Rate 2018-04-17 17:29:00* Test Item Value Reference Range Interpretation Comments Estimat Glomerular Filtration Rate (test code = 19348-9) 60 >60 Ranges were taken from the National Kidney Disease Education Program and the [facility] Kidney Foundation literature.Reference ranges:60 or greater: Kzswdk87-12 ( for 3 consecutive months): Chronic kidney disease 15 or less: Kidney failureVal Verde Regional Medical CenterGlucose Tdmed8979-69-62 17:29:00* Test Item Value Reference Range Interpretation Comments Glucose Level (test code = VEL2301) 103 74-118 [facility] CenterCalcium Xhyri4804-90-75 17:29:00* Test Item Value Reference Range Interpretation Comments Calcium Level (test code = 80185-6) 9.8 8.4-10.2 [facility] CenterTotal Xiwqmbsnl7599-71-99 17:29:00* Test Item Value Reference Range Interpretation Comments Total Bilirubin (test code = 1975-2) 0.5 0.2-1.2 [facility] CenterAspartate Amino Transf (AST/SGOT) 2018-04-17 17:29:00* Test Item Value Reference Range Interpretation Comments Aspartate Amino Transf (AST/SGOT) (test code = Aspartate Amino Transf (AST/SGOT)) 55 5-34 H [facility] CenterAlanine Aminotransferase (ALT/SGPT) 2018-04-17 17:29:00* Test Item Value Reference Range Interpretation Comments Alanine Aminotransferase (ALT/SGPT) (test code = 1742-6) 68 0-55 H [facility] CenterTotal Dcofbpp8052-93-37 17:29:00* Test Item Value Reference Range Interpretation Comments Total Protein (test code = 2885-2) 7.2 6.5-8.1 [facility] CenterAlbumin2018-06-27 17:29:00* Test Item Value Reference Range Interpretation Comments Albumin (test code = 1751-7) 4.0 3.5-5.0 [facility] CenterGlobulin2018-06-27 17:29:00* Test Item Value Reference Range Interpretation Comments Globulin (test code = 83448-4) 3.2 2.3-3.5 [facility] CenterAlbumin/Globulin Nrfff7842-66-11 17:29:00 * Test Item Value Reference Range Interpretation Comments Albumin/Globulin Ratio (test code = 1759-0) 1.3 0.8-2.0 [facility] CenterAlkaline Brqyombovqp8189-32-12 17:29:00* Test Item Value Reference Range Interpretation Comments Alkaline Phosphatase (test code = 6768-6) 54 40-150 [facility] CenterCreatine Ytudjs4927-35-43 17:29:00* Test Item Value Reference Range Interpretation Comments Creatine Kinase (test code = 2157-6) 522 30-200 H [facility] CenterWhite Blood Cpeyi2504-00-07 16:57:00* Test Item Value Reference Range Interpretation Comments White Blood Count (test code = 6690-2) 9.73 4.8-10.8 [facility] CenterRed Blood Hzqki4017-44-68 16:57:00* Test Item Value Reference Range Interpretation Comments Red Blood Count (test code = 789-8) 4.06 4.3-5.7 L [facility] CenterHemoglobin2018-06-27 16:57:00* Test Item Value Reference Range Interpretation Comments Hemoglobin (test code = 24409-4) 13.6 14.0-18.0 L [facility] CenterHematocrit2018-06-27 16:57:00* Test Item Value Reference Range Interpretation Comments Hematocrit (test code = 4544-3) 37.3 38.2-49.6 L [facility] CenterMean Corpuscular Svieqv8006-05-54 16:57:00* Test Item Value Reference Range Interpretation Comments Mean Corpuscular Volume (test code = 787-2) 91.9 81-99 [facility] CenterMean Corpuscular Gqkgyqplrb7411-01-72 16:57:00* Test Item Value Reference Range Interpretation Comments Mean Corpuscular Hemoglobin (test code = 785-6) 33.5 28-32 H [facility] CenterMean Corpuscular Hemoglobin Concent 2018-04-17 16:57:00* Test Item Value Reference Range Interpretation Comments Mean Corpuscular Hemoglobin Concent (test code = 786-4) 36.5 31-35 H [facility] CenterRed Cell Distribution Kcgsg8981-77-91 16:57:00* Test Item Value Reference Range Interpretation Comments Red Cell Distribution Width (test code = 20623-0) 13.1 11.7 -14.4 [facility] CenterPlatelet Toyib0198-30-02 16:57:00* Test Item Value Reference Range Interpretation Comments Platelet Count (test code = 777-3) 335 140-360 [facility] CenterNeutrophils (%) (Auto)2018-04-17 16:57:00 * Test Item Value Reference Range Interpretation Comments Neutrophils (%) (Auto) (test code = 11983-1) 48.9 38.7-80.0 [facility] CenterLymphocytes (%) (Auto)2018-04-17 16:57:00 * Test Item Value Reference Range Interpretation Comments Lymphocytes (%) (Auto) (test code = 736-9) 40.8 18.0-39.1 H [facility] CenterMonocytes (%) (Auto)2018-04-17 16:57:00* Test Item Value Reference Range Interpretation Comments Monocytes (%) (Auto) (test code = 5905-5) 7.5 4.4-11.3 [facility] CenterEosinophils (%) (Auto)2018-04-17 16:57:00 * Test Item Value Reference Range Interpretation Comments Eosinophils (%) (Auto) (test code = 713-8) 2.0 0.0-6.0 [facility] CenterBasophils (%) (Auto)2018-04-17 16:57:00* Test Item Value Reference Range Interpretation Comments Basophils (%) (Auto) (test code = 706-2) 0.4 0.0-1.0 [facility] CenterIM GRANULOCYTES %2018-04-17 16:57:00* Test Item Value Reference Range Interpretation Comments IM GRANULOCYTES % (test code = IM GRANULOCYTES %) 0.4 0.0- 1.0 [facility] CenterNeutrophils # (Auto)2018-04-17 16:57:00* Test Item Value Reference Range Interpretation Comments Neutrophils # (Auto) (test code = 751-8) 4.8 2.1-6.9 [facility] CenterLymphocytes # (Auto)2018-04-17 16:57:00* Test Item Value Reference Range Interpretation Comments Lymphocytes # (Auto) (test code = 40271-1) 4.0 1.0-3.2 H [facility] CenterMonocytes # (Auto)2018-04-17 16:57:00* Test Item Value Reference Range Interpretation Comments Monocytes # (Auto) (test code = 742-7) 0.7 0.2-0.8 [facility] CenterEosinophils # (Auto)2018-04-17 16:57:00* Test Item Value Reference Range Interpretation Comments Eosinophils # (Auto) (test code = 711-2) 0.2 0.0-0.4 [facility] CenterBasophils # (Auto)2018-04-17 16:57:00* Test Item Value Reference Range Interpretation Comments Basophils # (Auto) (test code = 704-7) 0.0 0.0-0.1 [facility] CenterAbsolute Immature Granulocyte (auto 2018-04-17 16:57:00* Test Item Value Reference Range Interpretation Comments Absolute Immature Granulocyte (auto (hiral t code = Absolute Immature Granulocyte (auto) 0.04 0-0.1 [facility] CenterELECTROLYTES2018-05-23 09:49:009.7 [facility] BbdymmeWHLIOKQUHEUX2121-44-31 09:49:0053[facility] HermannELECTROLYTES 2018-03-13 09:49:93265Fjibnrvy VytwqtkPPUOQFGYMNSW5833-24-14 09:49:0024[facility] XfdxijqMRJNXOHUPUCY9115-53-16 09:49:003.7[facility] AdybckvFXRTTZQGSQBO7830-85-70 09:49:51039Ggpytmru LxefiisVVWUXAASNNWQ6945-33-38 09:49:007.8[facility] [place] LCNHNIRDNKZQ3406-49-74 09:49:81384Octpgzhx DcclrkbZOPQWPAZIHPW5952-98-16 09:49:0016[facility] XhdgxsaNOOMQZBIKUNQ5538-95-90 09:49:001.07[facility] [place] EJABJKBNJA0600-63-90 09:49:24796Rinwaxny BnbvoxeWCATQSQNWP2863-80-04 09:49:00 13.1[facility] HdgunvvGELEVOQVPO3005-78-80 09:49:007.8[facility]annHEMATOLOGY 2018-03-13 09:49:0036.0[facility] MauzbrpLTESSJOTGY5273-58-50 09:49:0095.3[facility] GqyxmzyDUXXDNBUSD8005-20-22 09:49:00* Test Item Value Reference Range Interpretation Comments MCH (test code = MCH) 34.3 pg 27.0-31.0 [facility] NrdpgilFWMXAEXGHV1581-77-10 09:49:0011.4[facility]annHEMATOLOGY 2018-03-13 09:49:0013.3[facility] SloizefGKKDWMVWLR7255-18-17 09:49:0036.9[facility] QwnafvcBFZPTTZBSO8593-83-87 09:49:003.87[facility] AxtjcmzAPAXCJXNQG0913-34-14 09:49:00* Test Item Value Reference Range Interpretation Comments PTT (test code = PTT) 30.7 s 22.9-35.8 [facility] VnjbucaYEWXIFFTQW5385-69-66 09:49:00* Test Item Value Reference Range Interpretation Comments PT (test code = PT) 12.8 s 12.0-14.7 [facility] RtdvtjuOONXVGQEBC4381-47-52 09:49:00* Test Item Value Reference Range Interpretation Comments INR (test code = INR) 0.96 1 0.85-1.17 [facility] AjtjjtpUMAVLJXZOD7722-56-70 19:05:28* Test Item Value Reference Range Interpretation Comments PTT (test code = PTT) 164.1 s 22.9-35.8 [facility]CHEM HSRHU6622-51-66 12:06:0062[facility]annCHEM PANEL 2018-03-12 12:06:006.4[facility]annCHEM OKZZA9029-24-28 12:06:0011.0[facility]annCHEM BUNNV3009-07-81 12:06:00* Test Item Value Reference Range Interpretation Comments B/C Ratio (test code = B/C Ratio) 17 1 6-25 [facility]annCHEM VUEGO6017-54-58 12:06:008.1[facility]annCHEM PANEL 2018-03-12 12:06:000.95[facility]annCHEM CEUME4650-68-73 12:06:72522Vqxxsxtt HermannCHEM WQINB8937-60-30 12:06:004.0[facility]annCHEM DFFTF9586-46-66 12:06:83923Xkhjscod HermannCHEM VZHKN0947-50-46 12:06:0026[facility]annCHEM OZNIV8270-65-01 12:06:0016[facility]annCHEM DQTNS1163-10-01 12:06:16256 [facility]CHE[facility] RRFNC8972-67-66 12:06:000.7[facility]annCHEM PANEL 2018-03-12 12:06:0054[facility]annCHEM EVVPH9569-39-07 12:06:0031[facility]annCHEM SKJEV7409-89-88 12:06:003.3[facility]annCHEM RNOUV1044-52-96 12:06:003.1[facility]annCHEM LAHUW8129-69-95 12:06:00* Test Item Value Reference Range Interpretation Comments A/G Ratio (test code = A/G Ratio) 1.1 1 0.7-1.6 [facility]annCHE[facility] TXRCL1990-20-57 12:06:0049[facility]annHEMATOLOGY 2018-03-12 12:06:000.5[facility] ZzmhpfqKSBNWLFZRK5392-21-46 12:06:004.5[facility] HiojrlmUQZJXDUKFD0091-56-25 12:06:006.2[facility] YpbmbxpWBREISEKGZ2245-98-82 12:06:008.5[facility] VamntqdZSKMJHMSLU2759-86-22 12:06:001.5[facility] [place] YKDPREBQZN9062-10-97 12:06:0037.5[facility] CzhmoikILUHHWPHNJ9809-29-62 12:06:00 52.0[facility] MtbhefuYCWNYKNMEZ1330-51-88 12:06:000.2[facility]annHEMATOLOGY 2018-03-12 12:06:001.0[facility] DrntbfaUSZBKSNTJL6031-13-15 12:06:000.1[facility] VhzshodUQPUUFHXGK9048-68-96 12:06:00* Test Item Value Reference Range Interpretation Comments INR (test code = INR) 1.13 1 0.85-1.17 [facility] PthtcuiIYGIYDCRWS3374-02-95 12:06:00* Test Item Value Reference Range Interpretation Comments PT (test code = PT) 14.5 s 12.0-14.7 [facility] FswqyvpATNNRFZAEY1741-84-45 12:06:00* Test Item Value Reference Range Interpretation Comments PTT (test code = PTT) 47.1 s 22.9-35.8 [facility] VytmdsoPBWNMVSSMG0457-81-22 12:06:007.8[facility]annHEMATOLOGY 2018-03-12 12:06:39838Hxozdepw JjtlwqzXQXFZZIFBQ0156-02-48 12:06:0094.2[facility] ShklnqrYMJQIGJVSR5022-22-34 12:06:00* Test Item Value Reference Range Interpretation Comments MCH (test code = MCH) 34.5 pg 27.0-31.0 [facility] MxthxplOSAJYRGXJS0726-81-72 12:06:0013.3[facility]annHEMATOLOGY 2018-03-12 12:06:0036.7[facility] MvtakdaFYIVBRJRBY8530-26-60 12:06:0038.8[facility] KcnkohrVKAMCLQLKE8164-11-92 12:06:004.12[facility] RopvqmnRRIZJOBENR3825-54-44 12:06:0014.2[facility] WprrgiyQZJQYTRIGZ9047-44-43 12:06:0012.0[facility] [place] GCBJUGTGYZ2640-76-06 05:20:00* Test Item Value Reference Range Interpretation Comments INR (test code = INR) 1.09 1 0.85-1.17 [facility] OxdwlbdLGXSLUDNQG2361-40-59 05:20:00* Test Item Value Reference Range Interpretation Comments PT (test code = PT) 14.1 s 12.0-14.7 [facility] SscfhcvDHFYVTZBQY9907-22-59 01:24:000.1[facility]annHEMATOLOGY 2018-03-12 01:24:005.8[facility] MzdyihzCQOUIGSFWS7606-50-57 01:24:000.3[facility] ZtgasygBWRWDLFXIU2967-36-10 01:24:002.4[facility] EluiajbMVPGVRZQPS1937-29-53 01:24:000.9[facility] KqmqvxjIEHQBCYXUM6969-41-16 01:24:004.9[facility] [place] YGQEPFUOYK2161-07-97 01:24:009.3[facility] ZuzpepaCYNFJLBRYK3628-11-92 01:24:001.1 [facility] CbcjhawMHACUNZGRM4751-01-11 01:24:0039.9[facility]annHEMATOLOGY 2018-03-12 01:24:0047.5[facility] LieelmaMDIZTPWSNK2423-37-00 01:24:0013.4[facility] JlwcpcuLWOXAUWBME3302-79-59 01:24:68427Anokuihj DdrgmlsXMDZKWRRLR4044-98-60 01:24:007.8[facility] WyfljxwHJGGJXWUEQ7501-69-76 01:24:0014.9[facility] [place] BQYAPVTWUJ9648-79-60 01:24:00* Test Item Value Reference Range Interpretation Comments MCH (test code = MCH) 34.2 pg 27.0-31.0 [facility] JinlfgdMXBGBNHISV2621-44-79 01:24:0035.7[facility]annHEMATOLOGY 2018-03-12 01:24:004.35[facility] UmzbifcCKKDTKLWER1690-94-02 01:24:0096.0[facility] GjvbnhsDTQDFVPTDL8070-40-50 01:24:0012.2[facility] QrhtyylMLYGFNWYSW9394-19-49 01:24:0041.8[facility]annCHEM XZBCE4659-71-28 17:39:0058[facility]annCHEM YBSJX7682-64-03 17:39:0013[facility]annCHEM AUBPA0584-22-34 17:39:0087 [facility]annCHE[facility] VQURS0503-27-46 17:39:0060[facility]annCHEM PANEL 2018-03-11 17:39:001.00[facility]annCHEM FJILK1203-50-72 17:39:75916Bpjtwbht HermannCHEM EPGNU2829-24-42 17:39:31061Yfesxvfv HermannCHEM SXWKY7693-68-35 17:39:0024[facility]annCHEM CGNCW8030-04-85 17:39:007.0[facility]annCHEM CUXZV6335-87-73 17:39:008.9[facility]annCHEM LDQCC4208-70-80 17:39:004.6 [facility]annCHE[facility] VXPPS2237-27-35 17:39:0028[facility]annCHEM PANEL 2018-03-11 17:39:0051[facility]annCHEM GLHVG1790-36-39 17:39:003.9[facility]annCHEM BBNQF4944-41-83 17:39:000.3[facility]annCHEM HQRVP9346-34-93 17:39:00* Test Item Value Reference Range Interpretation Comments A/G Ratio (test code = A/G Ratio) 1.3 1 0.7-1.6 [facility]annCHE[facility] TKAMO2736-98-88 17:39:003.1[facility]annCHEM PANEL 2018-03-11 17:39:00* Test Item Value Reference Range Interpretation Comments B/C Ratio (test code = B/C Ratio) 13 1 6-25 [facility]annCHEM IYIJJ6112-70-78 17:39:0013.6[facility]annHEMATOLOGY 2018-03-11 17:39:000.1[facility] IvhqwplVHEPRLHWLK7298-27-46 17:39:001.0[facility] QajmcmvCWAWTHCKLQ3162-18-65 17:39:000.3[facility] EqgidncRFBRBYEOSC3508-22-62 17:39:004.3[facility] IuilpbwMRANSYSZEB1024-00-35 17:39:002.8[facility] [place] BMLPLUWDMD9900-76-68 17:39:001.0[facility] ZezttgmEBIEPUTVGU8185-02-06 17:39:005.8 [facility] CelwmrgVLENLLMARM0995-17-21 17:39:0050.1[facility]annHEMATOLOGY 2018-03-11 17:39:0037.1[facility] NbwhnpjTVFZQQFLGD7685-06-93 17:39:009.0[facility] KuoxvlyQZXHHP5614-92-94 17:39:00* Test Item Value Reference Range Interpretation Comments CHD Risk (test code = CHD Risk) 6.91 1 3.90-5.80 [facility] PugbsrpRFJTOV9763-27-85 17:39:0073[facility] BppdllvBLTQYX6999-74-54 17:39:00* Test Item Value Reference Range Interpretation Comments VLDL (test code = VLDL) 63 1 [facility] XwoathtFJZLXJ7509-01-03 17:39:0023[facility] AktjxgeUTEFHN1317-46-24 17:39:27403Izzqjrxh KahifcrYBUWFD9530-47-59 17:39:08681Hqjuubfb [place]White Blood Rkubn3866-62-88 21:48:00* Test Item Value Reference Range Interpretation Comments White Blood Count (test code = 6690-2) 10.71 4.8-10.8 [facility] CenterRed Blood Ispmk9065-11-73 21:48:00* Test Item Value Reference Range Interpretation Comments Red Blood Count (test code = 789-8) 5.04 4.3-5.7 [facility] CenterHemoglobin2018-04-25 21:48:00* Test Item Value Reference Range Interpretation Comments Hemoglobin (test code = 56773-1) 17.3 14.0-18.0 LIPEMIC SPECIMEN, PERFORMED SALINE SPECIMEN AND RAN 3 TIMES FOR CONSISTENCYVal Verde Regional Medical CenterHematocrit2018-04-25 21:48:00* Test Item Value Reference Range Interpretation Comments Hematocrit (test code = 4544-3) 46.1 38.2-49.6 LIPEMIC SPECIMEN, PERFORMED SALINE SPECIMEN AND RAN 3 TIMES FOR CONSISTENCYVal [facility]de Regional Medical CenterMean Corpuscular Gjpeud7975-31-39 21:48:00* Test Item Value Reference Range Interpretation Comments Mean Corpuscular Volume (test code = 787-2) 91.5 81-99 [facility] CenterMean Corpuscular Wzysbicgmc7801-97-48 21:48:00* Test Item Value Reference Range Interpretation Comments Mean Corpuscular Hemoglobin (test code = 785-6) 34.3 28-32 H [facility] CenterMean Corpuscular Hemoglobin Concent 2018-02-13 21:48:00* Test Item Value Reference Range Interpretation Comments Mean Corpuscular Hemoglobin Concent (test code = 786-4) 37.5 31-35 H [facility] CenterRed Cell Distribution Qdksp6320-09-26 21:48:00* Test Item Value Reference Range Interpretation Comments Red Cell Distribution Width (test code = 98183-9) 14.9 11.7 -14.4 H [facility] CenterPlatelet Jzilm8665-39-75 21:48:00* Test Item Value Reference Range Interpretation Comments Platelet Count (test code = 777-3) 390 140-360 H [facility] CenterNeutrophils (%) (Auto)2018-02-13 21:48:00 * Test Item Value Reference Range Interpretation Comments Neutrophils (%) (Auto) (test code = 36922-3) 42.3 38.7-80.0 [facility] CenterLymphocytes (%) (Auto)2018-02-13 21:48:00 * Test Item Value Reference Range Interpretation Comments Lymphocytes (%) (Auto) (test code = 736-9) 43.3 18.0-39.1 H [facility] CenterMonocytes (%) (Auto)2018-02-13 21:48:00* Test Item Value Reference Range Interpretation Comments Monocytes (%) (Auto) (test code = 5905-5) 10.7 4.4-11.3 [facility] CenterEosinophils (%) (Auto)2018-02-13 21:48:00 * Test Item Value Reference Range Interpretation Comments Eosinophils (%) (Auto) (test code = 713-8) 2.5 0.0-6.0 [facility] CenterBasophils (%) (Auto)2018-02-13 21:48:00* Test Item Value Reference Range Interpretation Comments Basophils (%) (Auto) (test code = 706-2) 0.7 0.0-1.0 [facility] CenterIM GRANULOCYTES %2018-02-13 21:48:00* Test Item Value Reference Range Interpretation Comments IM GRANULOCYTES % (test code = IM GRANULOCYTES %) 0.5 0.0- 1.0 [facility] CenterNeutrophils # (Auto)2018-02-13 21:48:00* Test Item Value Reference Range Interpretation Comments Neutrophils # (Auto) (test code = 751-8) 4.5 2.1-6.9 [facility] CenterLymphocytes # (Auto)2018-02-13 21:48:00* Test Item Value Reference Range Interpretation Comments Lymphocytes # (Auto) (test code = 69766-0) 4.6 1.0-3.2 H [facility] CenterMonocytes # (Auto)2018-02-13 21:48:00* Test Item Value Reference Range Interpretation Comments Monocytes # (Auto) (test code = 742-7) 1.2 0.2-0.8 H [facility] CenterEosinophils # (Auto)2018-02-13 21:48:00* Test Item Value Reference Range Interpretation Comments Eosinophils # (Auto) (test code = 711-2) 0.3 0.0-0.4 [facility] CenterBasophils # (Auto)2018-02-13 21:48:00* Test Item Value Reference Range Interpretation Comments Basophils # (Auto) (test code = 704-7) 0.1 0.0-0.1 [facility] CenterAbsolute Immature Granulocyte (auto 2018-02-13 21:48:00* Test Item Value Reference Range Interpretation Comments Absolute Immature Granulocyte (auto (hiral t code = Absolute Immature Granulocyte (auto) 0.05 0-0.1 [facility] CenterB-Type Natriuretic Jiqxosz9781-41-43 21:46:00* Test Item Value Reference Range Interpretation Comments B-Type Natriuretic Peptide (test code = 35554-3) -10.0 0-100 [facility] CenterB-Type Natriuretic Gwiqcos9367-50-51 21:46:00* Test Item Value Reference Range Interpretation Comments B-Type Natriuretic Peptide (test code = 02118-0) -10.0 0-100 [facility] CenterCreatine Kinase JL4015-72-91 21:29:00* Test Item Value Reference Range Interpretation Comments Creatine Kinase MB (test code = 82615-0) 3.20 0-5.0 [facility] CenterTroponin Z2137-42-20 21:29:00* Test Item Value Reference Range Interpretation Comments Troponin I (test code = ORD0383) 0.008 0-0.300 [facility] CenterD-Dimer Quantitative (PE/DVT)2018-02-13 21:26:00* Test Item Value Reference Range Interpretation Comments D-Dimer Quantitative (PE/DVT) (test code = 88795-6) 0.91 0. 00-0.45 H [facility] CenterD-Dimer Quantitative (PE/DVT)2018-02-13 21:26:00* Test Item Value Reference Range Interpretation Comments D-Dimer Quantitative (PE/DVT) (test code = 81140-4) 0.91 0. 00-0.45 [facility] Centerodium Sxjvr3011-52-83 21:25:00* Test Item Value Reference Range Interpretation Comments Sodium Level (test code = 2951-2) 139 136-145 [facility] CenterPotassium Pxqlc9038-52-40 21:25:00* Test Item Value Reference Range Interpretation Comments Potassium Level (test code = 2823-3) 3.8 3.5-5.1 [facility] CenterChloride Cmkfp0489-18-46 21:25:00* Test Item Value Reference Range Interpretation Comments Chloride Level (test code = 2075-0) 106 98-107 [facility] CenterCarbon Dioxide Cyhsk7888-86-37 21:25:00* Test Item Value Reference Range Interpretation Comments Carbon Dioxide Level (test code = 2028-9) 22 22-29 [facility] CenterAnion Htr1942-89-85 21:25:00* Test Item Value Reference Range Interpretation Comments Anion Gap (test code = 22155-5) 14.8 8-16 [facility] CenterBlood Urea Nngxxxbo3465-88-53 21:25:00* Test Item Value Reference Range Interpretation Comments Blood Urea Nitrogen (test code = 3094-0) 15 7-26 [facility] CenterCreatinine2018-04-25 21:25:00* Test Item Value Reference Range Interpretation Comments Creatinine (test code = 2160-0) 0.95 0.72-1.25 [facility] CenterBUN/Creatinine Mxwik7528-33-99 21:25:00* Test Item Value Reference Range Interpretation Comments BUN/Creatinine Ratio (test code = 3097-3) 16 6- [facility] CenterEstimat Glomerular Filtration Rate 2018-02-13 21:25:00* Test Item Value Reference Range Interpretation Comments Estimat Glomerular Filtration Rate (test code = 02382-5) 60- >60 Ranges were taken from the National Kidney Disease Education Program and the [facility] Kid[facility] Foundation literature.Reference ranges:60 or greater: Pmwvse69-88 ( for 3 consecutive months): Chronic kidney disease 15 or less: Kidney failureVal Verde Regional Medical CenterGlucose Refbd5615-59-10 21:25:00* Test Item Value Reference Range Interpretation Comments Glucose Level (test code = QAC0101) 106 74-118 [facility] CenterCalcium Rlast0919-83-32 21:25:00* Test Item Value Reference Range Interpretation Comments Calcium Level (test code = 13198-7) 9.4 8.4-10.2 [facility] CenterTotal Psxocthdu7514-36-75 21:25:00* Test Item Value Reference Range Interpretation Comments Total Bilirubin (test code = 1975-2) 0.4 0.2-1.2 [facility] CenterAspartate Amino Transf (AST/SGOT) 2018-02-13 21:25:00* Test Item Value Reference Range Interpretation Comments Aspartate Amino Transf (AST/SGOT) (test code = Aspartate Amino Transf (AST/SGOT)) 27 5-34 [facility] CenterAlanine Aminotransferase (ALT/SGPT) 2018-02-13 21:25:00* Test Item Value Reference Range Interpretation Comments Alanine Aminotransferase (ALT/SGPT) (test code = 1742-6) 38 0-55 [facility] CenterTotal Lvhruhq8440-43-53 21:25:00* Test Item Value Reference Range Interpretation Comments Total Protein (test code = 2885-2) 7.4 6.5-8.1 [facility] CenterAlbumin2018-04-25 21:25:00* Test Item Value Reference Range Interpretation Comments Albumin (test code = 1751-7) 3.8 3.5-5.0 [facility] CenterGlobulin2018-04-25 21:25:00* Test Item Value Reference Range Interpretation Comments Globulin (test code = 76080-9) 3.6 2.3-3.5 H [facility] CenterAlbumin/Globulin Kjajl3264-02-88 21:25:00 * Test Item Value Reference Range Interpretation Comments Albumin/Globulin Ratio (test code = 1759-0) 1.1 0.8-2.0 [facility] CenterAlkaline Heqlrtmfmvc9797-77-96 21:25:00* Test Item Value Reference Range Interpretation Comments Alkaline Phosphatase (test code = 6768-6) 63 40-150 [facility] CenterCreatine Rnlkrk5932-63-21 21:25:00* Test Item Value Reference Range Interpretation Comments Creatine Kinase (test code = 2157-6) 172 30-200 [facility] CenterActivated Partial Thromboplast Time 2018-02-13 21:13:00* Test Item Value Reference Range Interpretation Comments Activated Partial Thromboplast Time (test code = 43895-0) 27.4 23.8-35.5 [facility] CenterActivated Partial Thromboplast Time 2018-02-13 21:13:00* Test Item Value Reference Range Interpretation Comments Activated Partial Thromboplast Time (test code = 31748-6) 27.4 23.8-35.5 [facility] CenterProthrombin Tfaz9838-98-20 21:12:00* Test Item Value Reference Range Interpretation Comments Prothrombin Time (test code = 5902-2) 12.5 11.9-14.5 [facility] CenterProthromb Time International Ratio 2018-02-13 21:12:00* Test Item Value Reference Range Interpretation Comments Prothromb Time International Ratio (test code = 6301-6) 1.01 Oral Anticoagulant Therapy INR Values:1. Low Intensity Therapy 1.5 - 2.02 . Moderate Intensity Therapy 2.0 - 3.03. High Intensity Therapy(1) 2.5 - 3. 54. High Intensity Therapy(2) 3.0 - 4.05. Panic Value INR > 5.0 [facility] CenterProthrombin Cjcu6798-52-02 21:12:00* Test Item Value Reference Range Interpretation Comments Prothrombin Time (test code = 5902-2) 12.5 11.9-14.5 [facility] CenterProthromb Time International Ratio 2018-02-13 21:12:00* Test Item Value Reference Range Interpretation Comments Prothromb Time International Ratio (test code = 6301-6) 1.01 Oral Anticoagulant Therapy INR Values:1. Low Intensity Therapy 1.5 - 2.02 . Moderate Intensity Therapy 2.0 - 3.03. High Intensity Therapy(1) 2.5 - 3. 54. High Intensity Therapy(2) 3.0 - 4.05. Panic Value INR > 5.0 [facility] CenterCreatine Kinase LZ7703-76-33 07:42:00* Test Item Value Reference Range Interpretation Comments Creatine Kinase MB (test code = 73626-9) 3.80 0-5.0 [facility] CenterTroponin S5378-27-73 07:42:00* Test Item Value Reference Range Interpretation Comments Troponin I (test code = JHU3708) -0.001 0-0.300 [facility] Centerodium Fvmoo0404-45-79 07:39:00* Test Item Value Reference Range Interpretation Comments Sodium Level (test code = 2951-2) 141 136-145 [facility] CenterPotassium Felgi6860-62-36 07:39:00* Test Item Value Reference Range Interpretation Comments Potassium Level (test code = 2823-3) 4.2 3.5-5.1 [facility] CenterChloride Gnmyp2724-47-57 07:39:00* Test Item Value Reference Range Interpretation Comments Chloride Level (test code = 2075-0) 112 98-107 H [facility] CenterCarbon Dioxide Ogjcz4722-74-09 07:39:00* Test Item Value Reference Range Interpretation Comments Carbon Dioxide Level (test code = 2028-9) 22 22-29 [facility] CenterAnion Amc8995-26-00 07:39:00* Test Item Value Reference Range Interpretation Comments Anion Gap (test code = 75959-5) 11.2 8-16 [facility] CenterBlood Urea Fwhtovkh5270-60-25 07:39:00* Test Item Value Reference Range Interpretation Comments Blood Urea Nitrogen (test code = 3094-0) 14 - [facility] CenterCreatinine2018-02-26 07:39:00* Test Item Value Reference Range Interpretation Comments Creatinine (test code = 2160-0) 0.82 0.72-1.25 [facility] CenterBUN/Creatinine Wpvlh2641-15-68 07:39:00* Test Item Value Reference Range Interpretation Comments BUN/Creatinine Ratio (test code = 3097-3) 17 04-15 [facility] CenterEstimat Glomerular Filtration Rate 2017-12-17 07:39:00* Test Item Value Reference Range Interpretation Comments Estimat Glomerular Filtration Rate (test code = 26333-3) 60- >60 Ranges were taken from the National Kidney Disease Education Program and the [facility] Kidney Foundation literature.Reference ranges:60 or greater: Veuwwp36-95 ( for 3 consecutive months): Chronic kidney disease 15 or less: Kidney failureVal [facility]de Regional Medical CenterGlucose Gskjg0199-32-11 07:39:00* Test Item Value Reference Range Interpretation Comments Glucose Level (test code = KOC2742) 116 74-118 [facility] CenterCalcium Fqkyc8549-75-93 07:39:00* Test Item Value Reference Range Interpretation Comments Calcium Level (test code = 74998-1) 8.3 8.4-10.2 L [facility] CenterTotal Hldramqfk1554-27-76 07:39:00* Test Item Value Reference Range Interpretation Comments Total Bilirubin (test code = 1975-2) 0.4 0.2-1.2 [facility] CenterAspartate Amino Transf (AST/SGOT) 2017-12-17 07:39:00* Test Item Value Reference Range Interpretation Comments Aspartate Amino Transf (AST/SGOT) (test code = Aspartate Amino Transf (AST/SGOT)) 31 5-34 [facility] CenterAlanine Aminotransferase (ALT/SGPT) 2017-12-17 07:39:00* Test Item Value Reference Range Interpretation Comments Alanine Aminotransferase (ALT/SGPT) (test code = 1742-6) 43 0-55 [facility] CenterTotal Yrzuqeg2603-43-24 07:39:00* Test Item Value Reference Range Interpretation Comments Total Protein (test code = 2885-2) 5.7 6.5-8.1 L [facility] CenterAlbumin2018-02-26 07:39:00* Test Item Value Reference Range Interpretation Comments Albumin (test code = 1751-7) 3.4 3.5-5.0 L [facility] CenterGlobulin2018-02-26 07:39:00* Test Item Value Reference Range Interpretation Comments Globulin (test code = 25495-0) 2.3 2.3-3.5 [facility] CenterAlbumin/Globulin Krkwo8704-84-74 07:39:00 * Test Item Value Reference Range Interpretation Comments Albumin/Globulin Ratio (test code = 1759-0) 1.5 0.8-2.0 [facility] CenterAlkaline Cxjmmflawfm4343-19-39 07:39:00* Test Item Value Reference Range Interpretation Comments Alkaline Phosphatase (test code = 6768-6) 44 40-150 [facility] CenterTriglycerides Mobgm7707-44-14 07:39:00* Test Item Value Reference Range Interpretation Comments Triglycerides Level (test code = 2571-8) 133 0-149 [facility] CenterCholesterol Yiwwc5436-35-41 07:39:00* Test Item Value Reference Range Interpretation Comments Cholesterol Level (test code = 2093-3) 131 0-199 Less than 200 mg/dL Low Bkke565 - 239 mg/dL Borderline Xepj671 m g/dl and greater High Risk [facility] CenterLDL Jmjcewrrazy9488-08-09 07:39:00* Test Item Value Reference Range Interpretation Comments LDL Cholesterol (test code = 2089-1) 80 60-130 [facility] Jtikxcbjexb5474-98-15 07:39:00* Test Item Value Reference Range Interpretation Comments HDL Cholesterol (test code = 2085-9) 24 40-60 L [facility] CenterCholesterol/HDL Nrgcn2438-49-69 07:39:00 * Test Item Value Reference Range Interpretation Comments Cholesterol/HDL Ratio (test code = 9830-1) 5.5 3.9-4.7 H [facility] CenterTriglycerides Bejdc5792-29-91 07:39:00* Test Item Value Reference Range Interpretation Comments Triglycerides Level (test code = 2571-8) 133 0-149 [facility] CenterCholesterol Syunk0538-74-89 07:39:00* Test Item Value Reference Range Interpretation Comments Cholesterol Level (test code = 2093-3) 131 0-199 Less than 200 mg/dL Low Ugjp871 - 239 mg/dL Borderline Agnu768 m g/dl and greater High Risk [facility] CenterLDL Wodtmbfrwhd8415-46-81 07:39:00* Test Item Value Reference Range Interpretation Comments LDL Cholesterol (test code = 2089-1) 80 60-130 [facility] Qpdvwqopsrd6956-12-15 07:39:00* Test Item Value Reference Range Interpretation Comments HDL Cholesterol (test code = 2085-9) 24 40-60 L [facility] CenterCholesterol/HDL Khyax0286-58-11 07:39:00 * Test Item Value Reference Range Interpretation Comments Cholesterol/HDL Ratio (test code = 9830-1) 5.5 3.9-4.7 H [facility] CenterTriglycerides Pyxca8802-71-13 07:39:00* Test Item Value Reference Range Interpretation Comments Triglycerides Level (test code = 2571-8) 133 0-149 [facility] CenterCh[facility] Fhqlc2277-71-79 07:39:00* Test Item Value Reference Range Interpretation Comments Cholesterol Level (test code = 2093-3) 131 0-199 Less than 200 mg/dL Low Awmx159 - 239 mg/dL Borderline Vanm958 m g/dl and greater High Risk [facility] CenterLDL Pbmxgprwumc5352-59-73 07:39:00* Test Item Value Reference Range Interpretation Comments LDL Cholesterol (test code = 2089-1) 80 60-130 [facility] CenterHDL Zxftbvquhgk9324-39-47 07:39:00* Test Item Value Reference Range Interpretation Comments HDL Cholesterol (test code = 2085-9) 24 40-60 L [facility] CenterCholesterol/HDL Qdlnv4275-71-33 07:39:00 * Test Item Value Reference Range Interpretation Comments Cholesterol/HDL Ratio (test code = 9830-1) 5.5 3.9-4.7 H [facility] CenterCreatine Erzzgv8369-94-45 07:32:00* Test Item Value Reference Range Interpretation Comments Creatine Kinase (test code = 2157-6) 261 30-200 H [facility] CenterWhite Blood Jusyx8029-40-26 07:22:00* Test Item Value Reference Range Interpretation Comments White Blood Count (test code = 6690-2) 8.14 4.8-10.8 [facility] CenterRed Blood Vhnlq2902-59-84 07:22:00* Test Item Value Reference Range Interpretation Comments Red Blood Count (test code = 789-8) 3.40 4.3-5.7 L [facility] CenterHemoglobin2018-02-26 07:22:00* Test Item Value Reference Range Interpretation Comments Hemoglobin (test code = 85237-2) 11.7 14.0-18.0 L [facility] CenterHematocrit2018-02-26 07:22:00* Test Item Value Reference Range Interpretation Comments Hematocrit (test code = 4544-3) 31.2 38.2-49.6 L [facility] CenterMean Corpuscular Jqauxq6461-29-84 07:22:00* Test Item Value Reference Range Interpretation Comments Mean Corpuscular Volume (test code = 787-2) 91.8 81-99 [facility] CenterMean Corpuscular Jpuofzfcgq4874-05-85 07:22:00* Test Item Value Reference Range Interpretation Comments Mean Corpuscular Hemoglobin (test code = 785-6) 34.4 28-32 H [facility] CenterMean Corpuscular Hemoglobin Concent 2017-12-17 07:22:00* Test Item Value Reference Range Interpretation Comments Mean Corpuscular Hemoglobin Concent (test code = 786-4) 37.5 31-35 H [facility] CenterRed Cell Distribution Njedq6777-06-98 07:22:00* Test Item Value Reference Range Interpretation Comments Red Cell Distribution Width (test code = 00862-7) 13.0 11.7 -14.4 [facility] CenterPlatelet Pgjrh1677-29-53 07:22:00* Test Item Value Reference Range Interpretation Comments Platelet Count (test code = 777-3) 310 140-360 [facility] CenterNeutrophils (%) (Auto)2017-12-17 07:22:00 * Test Item Value Reference Range Interpretation Comments Neutrophils (%) (Auto) (test code = 09373-0) 47.5 38.7-80.0 [facility] CenterLymphocytes (%) (Auto)2017-12-17 07:22:00 * Test Item Value Reference Range Interpretation Comments Lymphocytes (%) (Auto) (test code = 736-9) 40.0 18.0-39.1 H [facility] CenterMonocytes (%) (Auto)2017-12-17 07:22:00* Test Item Value Reference Range Interpretation Comments Monocytes (%) (Auto) (test code = 5905-5) 7.9 4.4-11.3 [facility] CenterEosinophils (%) (Auto)2017-12-17 07:22:00 * Test Item Value Reference Range Interpretation Comments Eosinophils (%) (Auto) (test code = 713-8) 3.7 0.0-6.0 [facility] CenterBasophils (%) (Auto)2017-12-17 07:22:00* Test Item Value Reference Range Interpretation Comments Basophils (%) (Auto) (test code = 706-2) 0.7 0.0-1.0 [facility] CenterIM GRANULOCYTES %2017-12-17 07:22:00* Test Item Value Reference Range Interpretation Comments IM GRANULOCYTES % (test code = IM GRANULOCYTES %) 0.2 0.0- 1.0 [facility] CenterNeutrophils # (Auto)2017-12-17 07:22:00* Test Item Value Reference Range Interpretation Comments Neutrophils # (Auto) (test code = 751-8) 3.9 2.1-6.9 [facility] CenterLymphocytes # (Auto)2017-12-17 07:22:00* Test Item Value Reference Range Interpretation Comments Lymphocytes # (Auto) (test code = 15392-9) 3.3 1.0-3.2 H [facility] CenterMonocytes # (Auto)2017-12-17 07:22:00* Test Item Value Reference Range Interpretation Comments Monocytes # (Auto) (test code = 742-7) 0.6 0.2-0.8 [facility] CenterEosinophils # (Auto)2017-12-17 07:22:00* Test Item Value Reference Range Interpretation Comments Eosinophils # (Auto) (test code = 711-2) 0.3 0.0-0.4 [facility] CenterBasophils # (Auto)2017-12-17 07:22:00* Test Item Value Reference Range Interpretation Comments Basophils # (Auto) (test code = 704-7) 0.1 0.0-0.1 [facility] CenterAbsolute Immature Granulocyte (auto 2017-12-17 07:22:00* Test Item Value Reference Range Interpretation Comments Absolute Immature Granulocyte (auto (hiral t code = Absolute Immature Granulocyte (auto) 0.02 0-0.1 [facility] CenterUrine EEA1189-50-37 21:30:00* Test Item Value Reference Range Interpretation Comments Urine WBC (test code = 5821-4) 0-5 0-5 [facility] CenterU[facility] SIQ3652-72-35 21:30:00* Test Item Value Reference Range Interpretation Comments Urine RBC (test code = 48047-9) 0-5 0-5 [facility] CenterUrine Srwodtmk7926-14-57 21:30:00* Test Item Value Reference Range Interpretation Comments Urine Bacteria (test code = 01155-6) RARE NONE [facility] CenterUrine Epithelial Aepur9737-38-23 21:30:00 * Test Item Value Reference Range Interpretation Comments Urine Epithelial Cells (test code = 31562-3) FEW NONE [facility] CenterUrine EBG5952-79-82 21:30:00* Test Item Value Reference Range Interpretation Comments Urine WBC (test code = 5821-4) 0-5 0-5 [facility] ITQ9378-45-86 21:30:00* Test Item Value Reference Range Interpretation Comments Urine RBC (test code = 38761-9) 0-5 0-5 [facility] Mhomzgql2031-65-40 21:30:00* Test Item Value Reference Range Interpretation Comments Urine Bacteria (test code = 08869-6) RARE NONE [facility] CenterUrine Epithelial Osviv3064-24-60 21:30:00 * Test Item Value Reference Range Interpretation Comments Urine Epithelial Cells (test code = 35860-1) FEW NONE [facility] CenterU[facility] FPH0555-40-43 21:30:00* Test Item Value Reference Range Interpretation Comments Urine WBC (test code = 5821-4) 0-5 0-5 [facility] CenterU[facility] UTS8148-96-31 21:30:00* Test Item Value Reference Range Interpretation Comments Urine RBC (test code = 16603-7) 0-5 0-5 [facility] CenterU[facility] Lwuaymvn5422-42-90 21:30:00* Test Item Value Reference Range Interpretation Comments Urine Bacteria (test code = 53118-0) RARE NONE [facility] Epithelial Bxaui4030-73-63 21:30:00 * Test Item Value Reference Range Interpretation Comments Urine Epithelial Cells (test code = 01669-2) FEW NONE [facility] CenterU[facility] Xiese4794-68-26 21:13:00* Test Item Value Reference Range Interpretation Comments Urine Color (test code = 5778-6) YELLOW YELLOW [facility] CenterU[facility] Legbltp0288-08-07 21:13:00* Test Item Value Reference Range Interpretation Comments Urine Clarity (test code = 29708-6) CLEAR CLEAR [facility] CenterUrine Specific Hdxumqd6475-04-21 21:13:00 * Test Item Value Reference Range Interpretation Comments Urine Specific [place] (test code = 5811-5) 1.015 1.010-1.02 5 [facility] CenterUrine fM4111-67-72 21:13:00* Test Item Value Reference Range Interpretation Comments Urine pH (test code = 51050-9) 5 5-7 [facility] CenterU[facility] Leukocyte Zfllxtdc6850-07-70 21:13:00* Test Item Value Reference Range Interpretation Comments Urine Leukocyte Esterase (test code = 5799-2) NEGATIVE NEGATIVE [facility] CenterU[facility] Niwyllj9351-01-70 21:13:00* Test Item Value Reference Range Interpretation Comments Urine Nitrite (test code = 48262-3) NEGATIVE NEGATIVE [facility] CenterU[facility] Wkevcvp4658-35-49 21:13:00* Test Item Value Reference Range Interpretation Comments Urine Protein (test code = 5804-0) NEGATIVE NEGATIVE [facility] CenterU[facility] Glucose (UA)2017-12-15 21:13:00* Test Item Value Reference Range Interpretation Comments Urine Glucose (UA) (test code = 2349-9) NEGATIVE NEGATIVE [facility] CenterU[facility] Nyfminq4783-08-20 21:13:00* Test Item Value Reference Range Interpretation Comments Urine Ketones (test code = 76230-1) NEGATIVE NEGATIVE [facility] CenterU[facility] Ycrqhuixruzt0142-38-56 21:13:00* Test Item Value Reference Range Interpretation Comments Urine Urobilinogen (test code = 49682-5) 0.2 0.2-1 [facility] CenterU[facility] Izpcukgqb7206-84-41 21:13:00* Test Item Value Reference Range Interpretation Comments Urine Bilirubin (test code = 1978-6) NEGATIVE NEGATIVE [facility] CenterU[facility] Sansw7260-32-47 21:13:00* Test Item Value Reference Range Interpretation Comments Urine Blood (test code = 09010-6) NEGATIVE NEGATIVE [facility] CenterU[facility] Pftzl8837-90-45 21:13:00* Test Item Value Reference Range Interpretation Comments Urine Color (test code = 5778-6) YELLOW YELLOW [facility] CenterU[facility] Ieybnnq1763-85-34 21:13:00* Test Item Value Reference Range Interpretation Comments Urine Clarity (test code = 71921-7) CLEAR CLEAR [facility] CenterU[facility] Specific Aauhyfm8947-82-60 21:13:00 * Test Item Value Reference Range Interpretation Comments Urine Specific [place] (test code = 5811-5) 1.015 1.010-1.02 5 [facility] CenterU[facility] [id number] 21:13:00* Test Item Value Reference Range Interpretation Comments Urine pH (test code = 80607-8) 5 5-7 [facility] CenterU[facility] Leukocyte Smxyfsay1729-28-21 21:13:00* Test Item Value Reference Range Interpretation Comments Urine Leukocyte Esterase (test code = 5799-2) NEGATIVE NEGATIVE [facility] CenterU[facility] Kphvfni6901-34-24 21:13:00* Test Item Value Reference Range Interpretation Comments Urine Nitrite (test code = 91926-4) NEGATIVE NEGATIVE [facility] CenterU[facility] Nziapus6377-49-18 21:13:00* Test Item Value Reference Range Interpretation Comments Urine Protein (test code = 5804-0) NEGATIVE NEGATIVE [facility] CenterU[facility] Glucose (UA)2017-12-15 21:13:00* Test Item Value Reference Range Interpretation Comments Urine Glucose (UA) (test code = 2349-9) NEGATIVE NEGATIVE [facility] CenterU[facility] Wuhlpog1110-90-78 21:13:00* Test Item Value Reference Range Interpretation Comments Urine Ketones (test code = 79595-9) NEGATIVE NEGATIVE [facility] CenterU[facility] Uqxclbprerij3576-18-19 21:13:00* Test Item Value Reference Range Interpretation Comments Urine Urobilinogen (test code = 25538-3) 0.2 0.2-1 [facility] Msqvxevza6778-37-23 21:13:00* Test Item Value Reference Range Interpretation Comments Urine Bilirubin (test code = 1978-6) NEGATIVE NEGATIVE [facility] CenterU[facility] Lzihg0650-60-45 21:13:00* Test Item Value Reference Range Interpretation Comments Urine Blood (test code = 70582-8) NEGATIVE NEGATIVE [facility] CenterU[facility] Lvmgt6716-41-43 21:13:00* Test Item Value Reference Range Interpretation Comments Urine Color (test code = 5778-6) YELLOW YELLOW [facility] CenterU[facility] Iqxpbox4764-17-18 21:13:00* Test Item Value Reference Range Interpretation Comments Urine Clarity (test code = 49709-3) CLEAR CLEAR [facility] CenterU[facility] Specific Ugziqae9066-04-86 21:13:00 * Test Item Value Reference Range Interpretation Comments Urine Specific [place] (test code = 5811-5) 1.015 1.010-1.02 5 [facility] CenterU[facility] mE5114-03-01 21:13:00* Test Item Value Reference Range Interpretation Comments Urine pH (test code = 27682-5) 5 5-7 [facility] CenterU[facility] Leukocyte Xcvahfvz6773-45-76 21:13:00* Test Item Value Reference Range Interpretation Comments Urine Leukocyte Esterase (test code = 5799-2) NEGATIVE NEGATIVE [facility] CenterU[facility] Zoyoruz9219-56-59 21:13:00* Test Item Value Reference Range Interpretation Comments Urine Nitrite (test code = 20351-0) NEGATIVE NEGATIVE [facility] CenterU[facility] Nhbrrxk3446-16-01 21:13:00* Test Item Value Reference Range Interpretation Comments Urine Protein (test code = 5804-0) NEGATIVE NEGATIVE [facility] CenterU[facility] Glucose (UA)2017-12-15 21:13:00* Test Item Value Reference Range Interpretation Comments Urine Glucose (UA) (test code = 2349-9) NEGATIVE NEGATIVE [facility] CenterU[facility] Uqctqlt6223-41-48 21:13:00* Test Item Value Reference Range Interpretation Comments Urine Ketones (test code = 82099-8) NEGATIVE NEGATIVE [facility] CenterU[facility] Veshnzvdyfwl2357-00-87 21:13:00* Test Item Value Reference Range Interpretation Comments Urine Urobilinogen (test code = 52952-7) 0.2 0.2-1 [facility] CenterU[facility] Uvdedzhur1784-32-31 21:13:00* Test Item Value Reference Range Interpretation Comments Urine Bilirubin (test code = 1978-6) NEGATIVE NEGATIVE [facility] CenterU[facility] Qmuhn0733-61-45 21:13:00* Test Item Value Reference Range Interpretation Comments Urine Blood (test code = 54130-0) NEGATIVE NEGATIVE [facility] CenterProthrombin Cldy9880-20-52 20:29:00* Test Item Value Reference Range Interpretation Comments Prothrombin Time (test code = 5902-2) 13.1 11.9-14.5 [facility] CenterProthromb Time International Ratio 2017-12-15 20:29:00* Test Item Value Reference Range Interpretation Comments Prothromb Time International Ratio (test code = 6301-6) 1.07 Oral Anticoagulant Therapy INR Values:1. Low Intensity Therapy 1.5 - 2.02 . Moderate Intensity Therapy 2.0 - 3.03. High Intensity Therapy(1) 2.5 - 3. 54. High Intensity Therapy(2) 3.0 - 4.05. Panic Value INR > 5.0 [facility] CenterActivated Partial Thromboplast Time 2017-12-15 20:29:00* Test Item Value Reference Range Interpretation Comments Activated Partial Thromboplast Time (test code = 76948-2) 29.2 23.8-35.5 [facility] CenterCT [facility] W [facility] [address] [address] Patient Name: OJSEPH LONGO MR #: [id number] : 1950 Age/Sex: 67/M Req #: [id number] Adm Physician: Ordered by: TRAE LÓPEZ MD Report #: [id number] Location: ER Room/Bed: Procedure: [id number] CT/CT CHEST W Exam Ervin e: 02/13/18 [...] TO: TRAE LÓPEZ MD CHEST SINGLE (PORTABLE) [place] [address] Patient Name: JOSEPH LONGO MR #: [id number] : 1950 Age/Sex: 67/M Req #: [id number] Adm Physician: Ordered by: TRAE LÓPEZ MD Report #: [id number] Location: [facility]/Bed: Procedure: [id number] DX/CHEST SINGLE (PORTAB LE) Exam Date: 02/13/18 [...] TRAE LÓPEZ MD CT CERVICAL SPINE WO [place] [address] Patient Name: JOSEPH LONGO MR #: [id number] : 1950 Age/Sex: 67/M Req #: [id number] Adm Physician: Ordered by: YUNG CHIRINOS MD Report #: [id number] Location: ER Room/Bed: Procedure: [id number] CT/CT CERVICAL SPINE WO Exam Date: 12/15/17 [...] lectronically Signed By: RONNIE FERREIRA MD on 12/16/172319 Transcribed By: GILDA Gilbert on 12/16/172319 COPY TO: YUNG CHIRINOS MD CT BRAIN [place] [address] Patient Name: JOSEPH LONGO MR #: [id number] : 1950 Age/Sex: 67/M Req #: [id number] Adm Physician: Ordered by: YUNG CHIRINOS MD Report #: [id number] Location: ER Room/Bed : Procedure: [id number] CT/CT BRAIN WO Exam Date: Exam Time: [...] TO: YUNG CHIRINOS MD CT CHEST W [facility] [address] [address] Patient Name: JOSEPH LONGO MR #: [id number] : 1950 Age/Sex: 67/M Req #: [id number] Adm Physician: Ordered by: YUNG CHIRINOS MD Report #: [id number] Location: ER Room/Bed: Procedure: [id number] CT/CT CHEST W Exam Date: 11/23 02/06 [...] is normal. No mediastinal, hilar or axil beranrda lymphadenopathy. The heart is normal in size.. [...] TO: YUNG CHIRINOS MD CHEST 2 VIEWS [place] [address] Patient Name: JOSEPH LONGO MR #: [id number] : 1950 Age/Sex: 67/M Req #: [id number] Adm Physician: Ordered by: YUNG CHIRINOS MD Report #: [id number] Location: ER Room/Bed : Procedure: [id number] DX/CHEST 2 VIEWS Exam Date: 12/15/17 Exam [...]
[2020-07-07] MEDS ORDERED: MORPHINE SULFATE INJ 4 MG/ML INJ 1ML IV PRN (08:30)
[2020-07-07] MEDS: MORPHINE SULFATE INJ 4 MG/ML INJ 1ML IV PRN ×4 (11:30→20:55)
[2020-07-07] MEDS ORDERED: MORPHINE SULFATE 30 MG TAB ER PO SCH (11:30)
--- NOTE | 2020-07-07 11:30 | NUR ---
PT PAIN LEVEL AT 10/10 IN MID BACK; MEDICATED NEEDED. CALL MD TO RESTART HIS DAILY PAIN MEDICATION AND INCREASE MORPHINE 4MG TO IVP Q3 HOURS NEEDED
[2020-07-07 11:32] VITALS: BP 147/88
[2020-07-07 11:33] VITALS: BP 147/88
--- NOTE | 2020-07-07 12:40 | NUR ---
Pt unavailable at this time. Will follow up as able. SUKHDEV GARCÍA [facility] Lead Spiritual Care Department O: [phone]
[2020-07-07 14:00] LABS: CREATINE KINASE MB 1.9 ng/mL (0-5.0)
--- NOTE | 2020-07-07 14:38 | NUR ---
ASSESSMENT: Spiritual concern Referred by Charge Nurse. Pt contemplating his own mortality. Pt states he "not afraid to " but wants to live longer for "his kids." Pt states he and his adopted three of their grandchildren after their daughter's . Pt states he wants to "fight" his disease. Pt identifies as [employer]al. Pt expressed emotions thru words and tears. Intervention: Provided unhurried empathic listening. Facilitated identification of emotions and storytelling. Provided prayer. Followed up w/ RN. Outcome: Pt expressed appreciation for support. No need to follow at this time. SUKHDEV GARCÍA Postulant Spiritual Care Department O: [phone]
[2020-07-07] MEDS ORDERED: NON-FORMULARY MEDICATION ([Albuterol/Ipratropium Nebulize] 3 ML) NEB PRN (15:00)
[2020-07-07] MEDS ORDERED: ONDANSETRON HCL INJ 2MG/ML 2ML 2 MG/ML VIAL IV PRN (15:15)
[2020-07-07] MEDS ORDERED: HYDRALAZINE HCL 20 MG/ML VIAL IV PRN (15:15)
[2020-07-07] MEDS ORDERED: TEMAZEPAM 7.5 MG CAP PO PRN (15:15)
[2020-07-07] MEDS ORDERED: ACETAMINOPHEN 325 MG TAB PO PRN (15:15)
[2020-07-07] MEDS ORDERED: POLYETHYLENE GLYCOL 3350 17 GM PACK PO PRN (15:15)
[2020-07-07] MEDS ORDERED: ALBUTEROL/IPRATROPIUM 3 ML NEB INH PRN (15:30)
[2020-07-07 15:40] VITALS: BP 140/83
[2020-07-07] MEDS ORDERED: METOPROLOL TARTRATE INJ 1 MG/ML VIAL IV PRN (16:15)
[2020-07-07] MEDS ORDERED: SENNOSIDES 8.6 MG TAB PO PRN (16:15)
[2020-07-07] MEDS: FAMOTIDINE 20 MG/2 ML VIAL IV SCH (17:47)
[2020-07-07] MEDS: DOCUSATE SODIUM 100 MG CAP PO SCH (17:47)
[2020-07-07] MEDS ORDERED: FENTANYL 75MCG/HR PATCH TD SCH (18:00)
--- NOTE | 2020-07-07 18:40 | History and Physical ---
PRIMARY CARE PHYSICIAN: Dr. Chapin Lee. CONSULTING PHYSICIANS: Dr. Adwoa Arcos with Oncology and Dr. Ye Thomas with Cardiology. CHIEF COMPLAINT: Left back pain. 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 His main diagnosis from his recent hospitalization here was severe sepsis, present on admission with unclear source. However, he could not have had a postobstructive pneumonia beginning given his metastatic lung cancer as evidenced by significant production of phlegm with the addition of DuoNebs on his last hospitalization, or it could simply be related to his cancer. Per documentation from the emergency department, he had complaints of abdominal pain; however, the patient denies this and states that his pain starts in the middle of the back, goes forward around the thorax, then stops at the left chest area around where his tumor is. CT of his abdomen and pelvis has shown an enlargement of the nodule in the right lower lobe from 5 mm to now 11 mm in size, concerning for metastatic lesion in the right lung. His last chemotherapy was about 06/14. His last radiation treatment was yesterday, 07/06, and he has been getting radiation treatments daily at Dr. Arcos's office. His pain has become progressively worse and yesterday as well as this morning, his pain level is 10/10 on a 0-10 pain scale. He had been placed on hydrocodone; however, this was ineffective and his pain is now much more relieved after being restarted on his oral morphine as well as p.r.n. IV morphine sulfate. PAST MEDICAL HISTORY: Left apex lung cancer with metastases to the bone and on radiation therapy, asbestosis, hypertension, hyperlipidemia, anxiety, BPH, depression, coronary artery disease, kidney stones, GERD, and chronic back pain. PAST SURGICAL HISTORY: Lithotripsy, tonsillectomy and adenoidectomy, hernia repair, back surgery, PCI with 4 cardiac stents, extraction of upper teeth, UroLift. FAMILY HISTORY: Mother had hypotension. Father had a massive stroke, was obese. Maternal grandfather had 5 MIs. Maternal aunt had leukemia. 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 He smoked cigarettes from age 11 to age 58, half a pack a day for 47 years for a total of about 23.5 pack-years, then expensive cigars for 5 years, usually smoking 1-1/2 to 2 cigars a day and after that he switched to vaping about 5 years ago and did vaping for about 3 years. He states he no longer smokes anything. He drinks alcohol on occasion. He smoked marijuana when he was shown, but Denies any other illicit drug use. He lives with his . His daughter at age 27. Thus, he and his care for 3 adopted children from that daughter. ALLERGIES: DIPHENHYDRAMINE HYDROCHLORIDE. HOME MEDICATIONS: The patient states that he no longer takes lisinopril, metoprolol succinate, or Ranexa. Home medication list is as follows: 1. Ascorbic acid 500 mg daily. 2. Aspirin 81 mg daily. 3. Atorvastatin calcium 40 mg daily. 4. Citalopram 40 mg daily. 5. Finasteride 5 mg p.o. at bedtime. 6. Loratadine 10 mg daily. 7. Morphine sulfate (MS Contin) 30 mg p.o. q.12 hours. 8. Multivitamin daily. 9. Terazosin 5 mg at bedtime. 10. Albuterol/ipratropium nebulized treatments 3 mL inhalation every 4 hours p.r.n. for shortness of breath. REVIEW OF SYSTEMS: A 14-point review of systems was completed. The patient has no complaints regarding eyes, ears, nose, throat, genitourinary, psychiatric, integumentary, neurologic, endocrine, allergic/immunological, hematologic/lymphatic systems. CONSTITUTIONAL: Denies chills. Has been having hot flashes, sometimes cold/clammy. No fever. RESPIRATORY: Neb treatments helping considerably with the phlegm. INTEGUMENTARY: No itching related to his radiation treatments. CARDIOVASCULAR: Currently, no complaints of chest pain or palpitations. GASTROINTESTINAL: Last bowel movement on 07/06. He takes Colace and Senokot at home for pain related constipation. MUSCULOSKELETAL: Currently, back pain 1/10 on a 0-10 pain scale earlier today and yesterday was 10/10. The patient states that the pain starts in the middle of the back, goes forward around the thorax and stops at the left chest area where the tumor is. NEUROLOGIC: Dizziness "due to BP medications" has dissipated. PHYSICAL EXAMINATION: VITAL SIGNS: Temperature 98.6, pulse 84, blood pressure 147/88, respirations 19, oxygen saturation 98%. Height 5 feet 8 inches, weight 175 pounds, BMI 26.6. GENERAL: Supine in bed. Head of bed elevated. No acute distress. LUNGS: Generally clear to auscultation. Respiratory pattern even and unlabored. No supplemental oxygen. Diminished in the bases. HEENT: EOMI. Moist mucous membranes. NECK: Supple. No lymphadenopathy, thyromegaly, or JVD. CARDIOVASCULAR: Regular rate and rhythm without murmur. ABDOMEN: Bowel sounds positive. Soft, nontender. EXTREMITIES: No pitting edema. No clubbing, cyanosis, or marked swelling. No signs of DVT. NEUROLOGICAL: GCS 15. Nonfocal. LABORATORY DATA: WBC 13.34, hemoglobin 13.1, hematocrit 37.4, platelets 475, neutrophils 72.1%. PT 13.1, INR 0.94, and PTT 33.1. Sodium 130, potassium 4.4, chloride 96, CO2 of 22, anion gap 16.4, BUN 8, creatinine 0.66, estimated GFR greater than 60, glucose 114, lactic acid 1.9, calcium 9.1, phosphorus 3.0, magnesium 2.0, total bilirubin 1.1, AST 22, ALT 28, alkaline phosphatase 73. Creatine kinase 56 and then 50, CK-MB 1.2 and then 1.9, troponin I 0.018 and then 0.08. Total protein 7.8, albumin 4.1. Urinalysis negative, pH 7, specific gravity 1.020, moderate bacteria, few mucus. Blood culture x2 and urine culture with results pending. On 05/28/2020, coronavirus PCR negative. On 03/23/2020, hemoglobin A1c 4.6%, TSH 1.127, lipids not elevated. IMAGING/OTHER: A 12-lead EKG showed atrial flutter with variable AV block. Heart rate 140. Telemetry ordered just prior to 8:00 a.m., no report as of yet. Chest x-ray with no acute thoracic process. Unchanged left apical density, which correlates with known malignancy as seen on CT of the chest dated 05/29/2020. CT of the abdomen and pelvis, no acute abdominal or pelvic process. Known left suprahilar mass, which invades the mediastinal fat, partially imaged with mildly increased mass effect upon the left main pulmonary artery and left upper lobe bronchi. Imaged pulmonary vessels appear patent distally. Enlarging 11 mm nodule in the right lower lobe, previously 5 mm concerning for metastatic lesion in the right lung. CT of the brain, no intracranial abnormalities, unchanged compared to CT of the head done on 04/17/2018. ASSESSMENT AND PLAN: 1. Persistent severe left back pain, cancer related. Continue IV and oral morphine. Oncology consulted and will likely see patient around 5:00 p.m. today. Appreciate recommendations. Pain is much better controlled than on admission; however, will need to convert IV pain medication to oral pain medication. 2. Stage IV metastatic bronchogenic carcinoma with probable metastatic lesion, right lung, on radiation treatments. Oncology following. Appreciate recommendations. 3. Respirations relaxed on room air, no supplemental oxygen. No Pulmonology consult required at this time. 4. New onset atrial flutter, rate controlled. Documented heart rate on admission 140; however, since 6:13 a.m. this morning, heart rate has been between 72 and 85. Cardiology consulted, appreciate recommendations. We will use metoprolol tartrate 2.5 mg IV every 6 hours p.r.n. for systolic blood pressure greater than 150. 5. Controlled hypertension. Blood pressure 147/88. Defer medication regimen to Cardiology. The patient no longer takes lisinopril, Ranexa, or metoprolol at home. Thus, these will not be started. We will use p.r.n. metoprolol for systolic blood pressure greater than 150. 6. Coronary artery disease, history of PCI with cardiac stents x4. Continue aspirin 81 mg daily. Anticoagulation regimen for coronary artery disease and atrial flutter as per Cardiology recommendations. 7. Hyperlipidemia. Resume home dose of atorvastatin. Lipids were not elevated back in March. 8. Acute hyponatremia/hypochloremia. Sodium 130, chloride 96. Recheck labs tomorrow. BUN 8, creatinine 0.66, estimated GFR greater than 60. 9. Zjclv-so-ixqwrps anxiety/insomnia. Restoril p.r.n. for insomnia for now. Continue home dose of Celexa. 10. Leukocytosis. WBCs 13.3. We will continue cefepime daily for now. Afebrile. May be secondary to cancer. We will use Colace scheduled and p.r.n. MiraLax/Senokot for pain medication-induced constipation. 11. Prophylaxis IV Pepcid, SCDs. H and P, observation, billing code [id number]. Dictated by Tyree Willis, READING SPECIALIST MD SUSAN NationP/MODL /[id number]
--- NOTE | 2020-07-07 19:10 | Consultation ---
DATE OF CONSULTATION: 07/07/2020 Cardiology consultation REQUESTING PHYSICIAN: Viviana Busch. REASON FOR CONSULTATION: Atrial flutter. HISTORY OF PRESENT ILLNESS: This is a 70-year-old man with history of coronary artery disease, hypertension, hyperlipidemia, and metastatic lung cancer, who presents with complaints of back pain. The patient reports he has been feeling well and receiving radiation therapy, but had worsening back pain for the last 2 days. Due to this pain, he presented to the ER for further evaluation. While being evaluated in the ER, he was found to have atrial flutter with rapid ventricular response on EKG for which he was admitted for further management. He denies any chest pain, palpitations, edema, orthopnea, or PND. He does endorse shortness of breath which is chronic and unchanged. REVIEW OF SYSTEMS: Negative except as per HPI. PAST MEDICAL HISTORY: 1. Coronary artery disease. 2. Hypertension. 3. Hyperlipidemia. 4. Metastatic lung cancer. PAST SURGICAL HISTORY: 1. Hernia surgery. 2. Back surgery. ALLERGIES: PLEASE SEE EMR. MEDICATIONS: Please see medication list. SOCIAL HISTORY: He quit smoking. No alcohol or drugs. FAMILY HISTORY: Noncontributory to current illness. PHYSICAL EXAMINATION: VITAL SIGNS: Temperature 98.6 degrees, pulse 84 respiratory rate 19, blood pressure 147/88, and oxygen saturation 98% on room air. GENERAL: An elderly man, in no acute distress. Awake and alert. HEENT: Normocephalic and atraumatic. Pupils equal. No scleral icterus. NECK: Supple. No thyroid or cervical lymphadenopathy. No carotid bruits. LUNGS: Clear to auscultation bilaterally. No wheezes or crackles. HEART: Normal rate, regular rhythm. No murmur. Normal S1, S2. ABDOMEN: Soft, nontender. EXTREMITIES: No edema. NEUROLOGIC: Nonfocal exam. LABORATORY DATA: WBC 13.34, hemoglobin 13.1, hematocrit 37.4, and platelets 475. Sodium 130, potassium 4.4, chloride 96, CO2 of 22, BUN 8, and creatinine 0.66. Troponin 0.080. IMAGING: EKG, atrial flutter with variable AV block. Nonspecific ST abnormality. IMPRESSION: 1. Atrial flutter with rapid ventricular response. 2. Coronary artery disease with recent cardiac catheterization, January 2020 with 100% in-stent restenosis of the RCA and mild coronary artery disease elsewhere with grade 4 collaterals from the left right. 3. Hypertension. 4. Hyperlipidemia. 5. Metastatic lung cancer. RECOMMENDATIONS: I will trend troponin. No evidence of myocardial infarction thus far. If he rules out for myocardial function, no further cardiac evaluation is indicated at this time. Titrate heart rate control medications. We will discontinue lisinopril, so AV paulina blocking agents can be maximized. Recommend anticoagulation for CVA prophylaxis. Monitor on telemetry while admitted. Continue home cardiac medications otherwise. Thank you for this consult. We will continue to follow. Ainsley Matta MD ABS/MODL /[id number]
[2020-07-07 19:34] VITALS: BP 132/79
[2020-07-07 19:41] LABS: CREATINE KINASE MB 1.7 ng/mL (0-5.0)
[2020-07-07 19:56] VITALS: BP 132/79
[2020-07-07] MEDS: TERAZOSIN HCL 5 MG CAP PO SCH (20:58)
[2020-07-07] MEDS: FINASTERIDE 5 MG TAB PO SCH (20:59)
[2020-07-07] MEDS: TEMAZEPAM 15 MG CAP PO PRN (21:38)
--- NOTE | 2020-07-07 22:32 | History and Physical ---
Consult to Dr. Michelle. HISTORY OF PRESENT ILLNESS: Kurtis Flood is a 70-year-old white male with metastatic adenocarcinoma of the lung. The patient had the EGFR and alk which were reported negative. Subsequently, he was treated with systemic chemotherapy consisting of Alimta, cis-pala, two courses were given. Subsequently, the patient had stable disease. The patient did not want any more systemic chemotherapy. Subsequently, radiation therapy was discussed. I had called Dr. Lomeli. The patient has seen Dr. Lomeli, a radiation oncologist at [facility]. I suggested her to treat not only the lung, but also the metastases to the thoracic spine. The patient had presented with excruciating pain. The patient's claims that a recent CT scan by Dr. Lomeli has shown progression of disease. HISTORY OF PAST ILLNESS: History of anxiety disorder, history of hyperlipidemia, history of hypertension, and history of coronary artery disease with four stenting. SOCIAL HISTORY: History of excessive smoking. FAMILY HISTORY: Noncontributory. ALLERGIES: REPORTED NONE. MEDICATIONS: At this time consists of: 1. Cefepime. 2. Normal saline. 3. Tylenol. 4. Albuterol. 5. Ascorbic acid. 6. Aspirin. 7. Lipitor. 8. Celexa. 9. Digoxin. 10. Colace. 11. Pepcid. 12. Fentanyl. 13. Finasteride. 14. Hydralazine. 15. Lisinopril. 16. Claritin. 17. Metoprolol. 18. Morphine. 19. MS Contin. 20. Multivitamins. 21. Ondansetron. 22. Maalox. 23. Senokot. 24. Temazepam. 25. Terazosin. REVIEW OF SYSTEMS: HEENT: Normal. CARDIAC: Hypertension and hyperlipidemia. RESPIRATORY: Lung cancer, massive involvement of the lung. GI: Normal. : BPH. MUSCULOSKELETAL: Metastases to the thoracic spine. PHYSICAL EXAMINATION: GENERAL: A moderately built male, no adenopathy. HEART: Within normal limits. LUNGS: Clear. ABDOMEN: Obese. RECTAL: Deferred. CENTRAL NERVOUS SYSTEM: Essentially normal. EXTREMITIES: Essentially normal. IMPRESSION: 1. Metastatic adenocarcinoma of the lungs. 2. Increasing pain. 3. Hypertension. 4. Hyperlipidemia. 5. Anxiety disorder. PLAN, COMMENTS, AND SUGGESTIONS: Plan is to control his pain. The patient's had come to the office to have some assistance. Radiation is very essential. I will find multiple medications which he is on for hyperlipidemia will be taken off as a survival is less than one year or even less. If he does not respond to the radiation therapy, best supportive care is suggested. MD CALLIE Zee/SADIQ /[id number] cc: MD Geovany Valdovinos MD
[2020-07-08] VITALS (8 sets, daily range): BP systolic 106–149; BP diastolic 71–81
[2020-07-08] MEDS: MORPHINE SULFATE INJ 4 MG/ML INJ 1ML IV PRN ×7 (00:20→20:30)
[2020-07-08 05:12] LABS: BASOPHILS # (AUTO) 0.1 (0.0-0.1); BASOPHILS % 0.4 % (0.0-1.0); EOSINOPHILS # (AUTO) 0.1 (0.0-0.4); EOSINOPHILS % 0.7 % (0.0-6.0); HEMATOCRIT 29.8 % (38.2-49.6); HEMOGLOBIN 10.7 g/dL (14.0-18.0); LYMPHOCYTES # (AUTO) 1.3 (1.0-3.2); LYMPHOCYTES % 11.3 % (18.0-39.1); MEAN CORPUSCULAR HEMOGLOBIN 32.5 pg (28-32); MEAN CORPUSCULAR HGB CONC 35.9 g/dL (31-35); MEAN CORPUSCULAR VOLUME 90.6 fL (81-99); MONOCYTES # (AUTO) 1.4 (0.2-0.8); NEUTROPHILS # (AUTO) 8.7 (2.1-6.9); NEUTROPHILS % 74.9 % (38.7-80.0); PLATELET COUNT 374 x10e3/uL (140-360); RED BLOOD COUNT 3.29 x10e6/uL (4.3-5.7); RED CELL DISTRIBUTION WIDTH 13.1 % (11.7-14.4)
[2020-07-08 05:27] LABS: ANION GAP 11.1 mmol/L (8-16); BLOOD UREA NITROGEN 5 mg/dL (7-26); BUN/CREATININE RATIO 9 (6-25); CALCIUM 8.2 mg/dL (8.4-10.2); CARBON DIOXIDE 24 mmol/L (22-29); CHLORIDE 98 mmol/L (98-107); CREATININE, SERUM 0.58 mg/dL (0.72-1.25); EST GLOMERULAR FILTRATION RATE > 60 ML/MIN (60-); GLUCOSE 110 mg/dL (74-118); POTASSIUM 4.1 mmol/L (3.5-5.1); SODIUM 129 mmol/L (136-145)
[2020-07-08] MEDS ORDERED: SODIUM CHLORIDE 0.9% 250ML 250 ML ONE (06:10)
[2020-07-08] MEDS: CEFEPIME 1GM/NS 0.9% 50 ML 50 ML IV SCH (06:17)
[2020-07-08] MEDS: FAMOTIDINE 20 MG/2 ML VIAL IV SCH ×2 (06:55→16:22)
[2020-07-08] MEDS ORDERED: ATORVASTATIN 20 MG TAB PO SCH (09:00)
[2020-07-08] MEDS ORDERED: MULTIVITAMIN PO SCH (09:00)
[2020-07-08] MEDS ORDERED: ATORVASTATIN 40 MG TAB PO SCH (09:00)
[2020-07-08] MEDS ORDERED: NON-FORMULARY MEDICATION (Citalopram Hydrobromide (Citalopram Hbr) 40 MG) PO SCH (09:00)
[2020-07-08] MEDS ORDERED: LISINOPRIL 10 MG TAB PO SCH (09:00)
[2020-07-08] MEDS ORDERED: ASCORBIC ACID 500 MG TAB PO SCH (09:00)
[2020-07-08] MEDS: DOCUSATE SODIUM 100 MG CAP PO SCH ×2 (09:09→16:22)
[2020-07-08] MEDS: MULTIVITAMINS/MINERALS TAB PO SCH (09:09)
[2020-07-08] MEDS: ASPIRIN 81 MG CHEW TAB PO SCH (09:09)
[2020-07-08] MEDS: CITALOPRAM HYDROBROMIDE 20 MG TAB PO SCH (09:09)
[2020-07-08] MEDS: LORATADINE 10 MG TAB PO SCH (09:09)
--- NOTE | 2020-07-08 09:19 | Progress Note ---
DATE: 07/08/2020 SUBJECTIVE: Kurtis Flood is a 70-year-old white male patient of Dr. 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 Geovany Michelle, subsequently referred to me for further evaluation and treatment. The patient's came to the office to please see him. I did tell her that I will be more than happy to see the patient if I was given a consultation. Thanks to Dr. Michelle, I was given a consultation. The patient's wanted to stay with him since the patient was in excruciating pain. Even though the radiation has been started, however, the radiation has been only four days. Subsequently, I had to call the nurse to allow the patient's to stay. Lab today shows a hemoglobin of 10.7, hematocrit 29.8, white count 11,620, and platelets of 374,000. Chemistry; the sodium is low at 129, potassium 4.1, chloride is 98, CO2 of 24, BUN 5, creatinine 0.5, and calcium low at 8.2. I expect the patient's albumin to be low. Also, however, the albumin on 06/27 was reported at 4.1, and hence this is consistent with malnutrition. For low sodium, the patient is suggested to decrease the fluid intake since the CT scan of the brain is normal, it does not correlate with any metastases, highly unusual for adenocarcinoma of the lung to cause hyponatremia, which is usually seen with a small cell lung cancer. The patient was taken off Lipitor as it will take a good 20-30 years before a high cholesterol will cause any damage. The patient does not have, but a few months to live. I have started him on morphine 4 mg IV q.3 hours p.r.n. for long-acting drug. The patient was taken off MS Contin 30 mg p.o. b.i.d., which was not working. The patient was put on Duragesic patch 75 mcg every 72 hours. The patient should be discharged as soon as possible so that he would continue the radiation therapy. Thank you very much for allowing me to participate in management of this patient. MD CALLIE Zee/SADIQ /[id number]
--- NOTE | 2020-07-08 11:05 | Progress Note ---
DATE: 07/08/2020 Cardiology Progress Note SUBJECTIVE: The patient denies chest pain or shortness of breath. OBJECTIVE: VITAL SIGNS: Temperature 98.4 degrees, pulse 86, respiratory rate 17, blood pressure 149/79, oxygen 96% on room air. GENERAL: Awake, alert, in no acute distress. LUNGS: Clear to auscultation bilaterally. No wheezes or crackles. CARDIOVASCULAR: Normal rate, regular rhythm. No murmur. Normal S1, S2. ABDOMEN: Soft, nontender. EXTREMITIES: No edema. CARDIAC MEDICATIONS: Aspirin 81 mg p.o. daily. LABORATORY DATA: WBC 11.62, hemoglobin 10.7, hematocrit 29.8, platelets 374. Sodium 129, potassium 4.1, chloride 98, CO2 of 24, BUN 5, creatinine 0.58. TELEMETRY: Personally reviewed revealing normal sinus rhythm. IMPRESSION: 1. Paroxysmal atrial flutter with rapid ventricular response, currently sinus rhythm. 2. Coronary artery disease with recent cardiac catheterization January 2020 with 100% in-stent restenoses of the right coronary artery and mild coronary artery disease also with grade 4 collaterals from the left to right. 3. Hypertension. 4. Hyperlipidemia. 5. Metastatic lung cancer. RECOMMENDATIONS: The patient is ruled out for myocardial infarction with serial cardiac biomarkers. No further cardiac evaluation is indicated at this time. Attempt low-dose beta-blockade. Add amiodarone for rhythm control as the patient describes inability to previously tolerate metoprolol. Start Eliquis for CVA prophylaxis if agreeable with Oncology. The patient can be discharged from a cardiac standpoint. Thank you for this consult. We will continue. Ainsley Matta MD ABS/MODL /[id number]
--- NOTE | 2020-07-08 12:35 | NUR ---
Discontinuing PT services since patient is independent in functional mobility. Thank you Addendum: 07/08/20 at 1235 by Darion earl PT Amended: Links added.
[2020-07-08] MEDS: AMIODARONE HCL 200 MG TAB PO SCH (12:44)
[2020-07-08] MEDS: METOPROLOL SUCCINATE 25 MG TAB XL PO SCH (12:44)
--- NOTE | 2020-07-08 19:00 | NUR ---
RECEIVED PATIENT IN BEDSIDE SHIFT REPORT. PATIENT RESTING BED AT THIS TIME. PAIN 5/10, WILL MEDICATE. NO S&S OF DISTRESS NOTED. BED LOCKED IN LOWEST POSITION, SIDE RAILS UPX2, CALL LIGHT IN REACH.
[2020-07-08] MEDS: FINASTERIDE 5 MG TAB PO SCH (20:33)
[2020-07-08] MEDS: TERAZOSIN HCL 5 MG CAP PO SCH (20:33)
[2020-07-08] MEDS: TEMAZEPAM 15 MG CAP PO PRN (21:40)
--- NOTE | 2020-07-08 22:00 | NUR ---
PATIENT REQUESTED THAT HIS IV BE CHANGED THE ONE IN HIS HAND BOTHERS HIM WHEN IT BEDS. NEW IV PLACED TO R FA 22G. L HAND 22G REMOVED, CATHETER TIP INTACT, PRESSURE DRESSING APPLIED.
[2020-07-09] MEDS: MORPHINE SULFATE INJ 4 MG/ML INJ 1ML IV PRN ×5 (00:05→14:10)
[2020-07-09 04:45] VITALS: BP 117/69
[2020-07-09 05:13] LABS: BASOPHILS % 0.4 % (0.0-1.0); EOSINOPHILS # (AUTO) 0.2 (0.0-0.4); EOSINOPHILS % 1.7 % (0.0-6.0); HEMATOCRIT 30.5 % (38.2-49.6); HEMOGLOBIN 10.7 g/dL (14.0-18.0); LYMPHOCYTES # (AUTO) 1.9 (1.0-3.2); LYMPHOCYTES % 17.2 % (18.0-39.1); MEAN CORPUSCULAR HEMOGLOBIN 31.5 pg (28-32); MEAN CORPUSCULAR HGB CONC 35.1 g/dL (31-35); MEAN CORPUSCULAR VOLUME 89.7 fL (81-99); MONOCYTES # (AUTO) 1.6 (0.2-0.8); MONOCYTES % 13.9 % (4.4-11.3); NEUTROPHILS # (AUTO) 7.4 (2.1-6.9); NEUTROPHILS % 66.1 % (38.7-80.0); PLATELET COUNT 420 x10e3/uL (140-360); RED CELL DISTRIBUTION WIDTH 13.2 % (11.7-14.4)
[2020-07-09 05:32] LABS: ANION GAP 13.4 mmol/L (8-16); BLOOD UREA NITROGEN 9 mg/dL (7-26); BUN/CREATININE RATIO 14 (6-25); CALCIUM 8.3 mg/dL (8.4-10.2); CARBON DIOXIDE 25 mmol/L (22-29); CHLORIDE 95 mmol/L (98-107); CREATININE, SERUM 0.66 mg/dL (0.72-1.25); EST GLOMERULAR FILTRATION RATE > 60 ML/MIN (60-); GLUCOSE 99 mg/dL (74-118); POTASSIUM 4.4 mmol/L (3.5-5.1); SODIUM 129 mmol/L (136-145)
[2020-07-09] MEDS: CEFEPIME 1GM/NS 0.9% 50 ML 50 ML IV SCH (05:54)
--- NOTE | 2020-07-09 07:10 | NUR ---
RCD PT AT BED PT IS ALERT AND ORIENTED PT RESTING ON BED IV PATENT BY SALINE FLUSH BED LOW AND LOCKED CALL LIGHT IN REACH
[2020-07-09 07:58] VITALS: BP 118/74
[2020-07-09 08:08] VITALS: BP 118/74
--- NOTE | 2020-07-09 08:42 | Diagnostic Imaging Report ---
Examination: Single AP view of the chest. COMPARISON: Chest radiograph 07/07/2020, CT chest 05/29/2020, CT abdomen and pelvis 07/07/2020 INDICATION: Lung cancer DISCUSSION: Unchanged left hemidiaphragmatic elevation and volume loss with linear opacity in the lower lung compatible with subsegmental atelectasis. Medial left apical/mediastinal mass is without significant interval change and seen to better advantage on comparison chest CT. The right lung is well-inflated and without consolidation or effusion. Right lower lobe nodule described on comparison CT abdomen and pelvis 07/07/2020 is not identified by plain radiography. Cardiomediastinal contour is unchanged. No acute osseous abnormality. Vertebral metastases described on comparison CT are not visualized by plain radiography. IMPRESSION: Stable findings of left apical/mediastinal mass, and left hemidiaphragmatic elevation with small effusion and subsegmental basilar atelectasis relative to 07/07/2020. No new consolidations. Signed by: Dr. Shay Hauser M.D. on 07/09/2020 8:39 AM
[2020-07-09] MEDS: ASPIRIN 81 MG CHEW TAB PO SCH (09:00)
[2020-07-09] MEDS: LORATADINE 10 MG TAB PO SCH (09:00)
[2020-07-09] MEDS: METOPROLOL SUCCINATE 25 MG TAB XL PO SCH (09:00)
[2020-07-09] MEDS: DOCUSATE SODIUM 100 MG CAP PO SCH (09:00)
[2020-07-09] MEDS: FAMOTIDINE 20 MG/2 ML VIAL IV SCH (09:00)
[2020-07-09] MEDS: AMIODARONE HCL 200 MG TAB PO SCH (09:00)
[2020-07-09] MEDS: MULTIVITAMINS/MINERALS TAB PO SCH (09:00)
[2020-07-09] MEDS: CITALOPRAM HYDROBROMIDE 20 MG TAB PO SCH (09:00)
--- NOTE | 2020-07-09 11:20 | NUR ---
AC TO DR ESPOSITO PAGED AND TALKED DR FRAGOSO REGARDING ELIQUIS ,HE SIAD ITS OK NOTIFIED DR KEARNS
[2020-07-09 11:30] VITALS: BP 118/77
[2020-07-09] MEDS ORDERED: ONDANSETRON HCL 4 MG ORAL DISINTEGRATING TAB PO PRN (12:00)
[2020-07-09] MEDS ORDERED: MAGNESIUM HYDROXIDE 30 ML UDC PO PRN (13:30)
--- NOTE | 2020-07-09 13:41 | NUR ---
AC TO DR FRAGOSO TAKE IT OFF THE [facility] PAT[facility] AND PUT THE NEW ONE
[2020-07-09] MEDS ORDERED: METOPROLOL SUCC25 MG PO (13:46)
[2020-07-09] MEDS ORDERED: AMIODARONE HCL100 MG PO (13:47)
[2020-07-09] MEDS ORDERED: ELIQUIS5 M1 PO (13:50)
--- NOTE | 2020-07-09 13:56 | NUR ---
EDUCATED ABOUT IMM, SIGNED, FILED IN CHART, WITH COPY LEFT WITH FAMILY AT BEDSIDE.
--- NOTE | 2020-07-09 14:45 | NUR ---
PT WENT TO HOME IN SAFE CONDITION WITH HIS
[2020-07-09] MEDS ORDERED: FENTANYL 75MCG/HR PATCH TD ONE (15:00)
[2020-07-09] MEDS ORDERED: APIXABAN 5 MG TABLET PO SCH (17:00)
--- NOTE | 2020-07-11 06:02 | Progress Note ---
DATE: 07/09/2020 Cardiology Progress Note SUBJECTIVE: The patient denies chest pain or shortness of breath. His main complaint is back pain. OBJECTIVE: VITAL SIGNS: Temperature 99 degrees, pulse 76, respiratory rate 20, blood pressure 118/74, and oxygen saturation 97% on room air. GENERAL: Awake, alert, in no acute distress. LUNGS: Clear to auscultation bilaterally. No wheezes or crackles. CARDIOVASCULAR: Normal rate. Regular rhythm. No murmur. Normal S1 and S2. ABDOMEN: Soft and nontender. EXTREMITIES: No edema. CARDIAC MEDICATIONS: Amiodarone 200 mg p.o. daily, metoprolol succinate 12.5 mg p.o. daily, and aspirin 81 mg p.o. daily. LABORATORY DATA: WBC 11.14, hemoglobin 10.7, hematocrit 30.5, and platelets 420. Sodium 129, potassium 4.4, chloride 95, CO2 25, BUN 9, and creatinine 0.66. Telemetry was personally reviewed and interpreted, revealing normal sinus rhythm. IMPRESSION: 1. Paroxysmal atrial flutter with rapid ventricular response, currently sinus rhythm. 2. Coronary artery disease, recent cardiac catheterization January 2020 with 100% in-stent restenosis of the right coronary artery and mild coronary artery disease elsewhere with grade 4 collaterals from left to right. 3. Hypertension. 4. Hyperlipidemia. 5. Metastatic lung cancer. RECOMMENDATIONS: The patient ruled out for myocardial infarction with serial cardiac biomarkers. No further cardiac evaluation is indicated at this time. He was started on low-dose metoprolol for rate control and amiodarone for rhythm control. Start Eliquis for CVA prophylaxis if agreeable with Oncology. The patient can be discharged from a cardiac standpoint. Thank you for this consult. We will continue to follow. Ainsley Matta MD ABS/MODL /[id number]
--- NOTE | 2020-07-11 06:03 | Discharge Summary ---
CONSULTING PHYSICIANS: 1. Dr. Adwoa Arcos. 2. Dr. Ye Thomas. PRIMARY CARE PHYSICIAN: Dr. Chapin Lee. HOSPITAL COURSE: This is a 70-year-old male with history of coronary artery disease, hypertension, hyperlipidemia, and metastatic lung cancer, who presented with complaints of back pain on 07/07/2020. The patient had complaints of back pain for past 2 days, which was getting worsened and he presented to ER for further evaluation. While in the ER, the patient had atrial flutter with rapid ventricular response on EKG. He got evaluated by Cardiology, Dr. Thomas group and currently, the patient is placed on metoprolol, amiodarone, and Eliquis. The patient also got evaluated by bsa officer and currently, he is discharged to home with Duragesic patch for his chronic back pain. PAST MEDICAL HISTORY: 1. Coronary artery disease. 2. Hypertension. 3. Hyperlipidemia. 4. Metastatic colon cancer. PAST SURGICAL HISTORY: 1. Hernia. 2. Back surgery. ALLERGIES: BENADRYL. DISCHARGE DIAGNOSES: 1. Chronic back pain. 2. Paroxysmal atrial fibrillation. 3. Stage IV metastatic bronchogenic carcinoma. FOLLOWUP: The patient is advised to follow up with his primary care physician, bsa officer, and counter stacker as outpatient. Dictated by Mitzi Esparza NP MD LISA Nation/SADIQ /[id number]
== END 2020-07-09 13:45 | disposition home or self-care (01) | DRG 309 ==
LOC: ER 05:11 → ERHOLD 07:59 → MED/SURG 10:09 → OBSVTOIN 07-08 08:16
PROVIDERS: ADMIT Internal Medicine; ATTEND Internal Medicine
DX: I48.92 Unspecified atrial flutter (principal); E87.1 Hypo-osmolality and hyponatremia; C79.51 Secondary malignant neoplasm of bone; C34.02 Malignant neoplasm of left main bronchus; C34.01 Malignant neoplasm of right main bronchus; G89.3 Neoplasm related pain (acute) (chronic); I10 Essential (primary) hypertension; I25.10 Atherosclerotic heart disease of native coronary artery without angina pectoris; Z95.5 Presence of coronary angioplasty implant and graft; E78.5 Hyperlipidemia, unspecified; F41.9 Anxiety disorder, unspecified; E87.8 Other disorders of electrolyte and fluid balance, not elsewhere classified; I48.0 Paroxysmal atrial fibrillation; Z11.59 Encounter for screening for other viral diseases
CPT/HCPCS: 36415; 70450; 71045; 74177; 80048; 80053; 81001; 82550; 82553; 83605; 83735; 84100; 84484; 85025; 85610; 85730; 87040; 87086; 93005; 99284; G0378; J0692; J2270; J3010; J7030; J7050; Q9967; U0002

== ENCOUNTER 2020-09-17 15:32 | Emergency (ER) | payer MEDICARE, OTHER ==
[~2020-09-17] VITALS: Ht 172.7 cm; Wt 79.4 kg
[~2020-09-17 15:32] MED LIST changes: +AMIODARONE HCL100 MG PO; +ELIQUIS5 M1 PO
[2020-09-17] MEDS ORDERED: MORPHINE SULFATE INJ 4 MG/ML INJ 1ML IV PRN (16:00)
[2020-09-17] MEDS ORDERED: ONDANSETRON HCL INJ 2MG/ML 2ML 2 MG/ML VIAL IV ONE (16:05)
[2020-09-17 16:19] LABS: BASOPHILS # (AUTO) 0.1 (0.0-0.1); BASOPHILS % 0.5 % (0.0-1.0); EOSINOPHILS # (AUTO) 0.4 (0.0-0.4); EOSINOPHILS % 3.4 % (0.0-6.0); HEMATOCRIT 34.5 % (38.2-49.6); HEMOGLOBIN 11.9 g/dL (14.0-18.0); LYMPHOCYTES # (AUTO) 1.2 (1.0-3.2); LYMPHOCYTES % 10.7 % (18.0-39.1); MEAN CORPUSCULAR HEMOGLOBIN 30.4 pg (28-32); MEAN CORPUSCULAR HGB CONC 34.5 g/dL (31-35); MONOCYTES # (AUTO) 0.7 (0.2-0.8); MONOCYTES % 6.7 % (4.4-11.3); NEUTROPHILS # (AUTO) 8.6 (2.1-6.9); NEUTROPHILS % 78.2 % (38.7-80.0); PLATELET COUNT 423 x10e3/uL (140-360); RED BLOOD COUNT 3.92 x10e6/uL (4.3-5.7); RED CELL DISTRIBUTION WIDTH 15.5 % (11.7-14.4)
--- OUTSIDE RECORDS SUMMARY | 2020-09-17 16:40 | XMS REPORT | Continuity of Care Document ---
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 Role Phone [email or web address] Unavailable Un available Problems Problem Status Onset Date Classification Date Reported Comments Source Carpal tunnel syndrome, left upper limb 07/31/2018 02/11/2019 [facility] HEART CATH Active 03/07/2018 [facility] CAD(CORONARY ARTERY DISEASE) A ctive 03/07/2018 [facility] 490 - BRONCHITIS NOS Active 08/29/2012 [facility] [place] Carpal tunnel syndrome, right upper limb 02/11/2019 [facility] Other cervical disc degeneration, unspec ified cervical region 02/11/2019 [facility] Osteophyte, vertebrae 02/11/2019 [facility] Other specific arthropathies, 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, vertebrae 02/11/2019 [facility] ATHSCL HEART DISEASE OF [place] RESERVATION CORONARY Active [facility] Medications Medication Details Route Status Patient Instructions Ordering Provider Order Date Source metoprolol 25 mg oral tablet, extended release 25 mg = 1 tab, PO, Daily, # 30 tab, 0 Refill(s), Pharmacy: [facility] [id number] Active 03/13/2018 [facility] clopidogrel 75 mg oral tablet 75 mg = 1 tab, PO, Daily, # 30 tab, 0 Refill(s), Pharmacy: [facility] [id number] Active 03/13/2018 [facility] atorvastatin 40 mg oral tablet 40 mg = 1 tab, PO, Daily, # 30 tab, 0 Refill(s), Pharmacy: [facility] [place] [id number] Active 03/13/2018 [facility] Fentanyl Notes: (Same as: Subl imaze) Preservative free. No Longer Active 03/13/2018 [facility] Hydralazine Notes: (Same as: A presoline) Push over 5 minutes No Longer Active 03/12/2018 [facility] Morphine Notes: (Same as:MORPh ine Sulfate) No Longer Active 03/12/2018 [facility] Nitroglycerin Notes: (Same as: Nitroquick, Nitrostat) "Do Not Crush" Sublingual tablet No Longer Active 03/12/2018 [facility] Sodium Chloride 0.9% IV 750 mL 750 mL, Rate: 75 ml/hr, Infuse over: 10 hr, Route: IV, Dosing Weight 101.3 kg, Total Volume: 750, Start date: 03/12/18 12:36:00 CDT, Duration: 10 hr, Stop date: 03/12/18 22:35:00 CDT, 2.24, m2 Inactive 03/12/2018 [facility] Mucinex 1200, PO, Daily, PRN A llergies, 0 Refill(s) No Longer Active 03/12/2018 [facility] Lisinopril Notes: (Same as: Pr inivil, Zestril) No Longer Active 03/12/2018 [facility] Citalopram 20 mg, 2 tab, Route : PO, Drug form: TAB, Daily, Dosing Weight 98.8, kg, Start date: 03/12/18 9:00:00 CDT, Duration: 30 day, Stop date: 04/10/18 9:00:00 CDT No Longer Active 03/12/2018 [facility] atorvastatin Notes: (Same as: Lipitor) No Longer Active 03/12/2018 [facility] Aspirin 81 MG Chewable Tablet 81 mg, 1 tab, Route: PO, Drug form: CHEWTAB, Daily, Dosing Weight 98.8, kg, Start date: 03/12/18 9:00:00 CDT, Duration: 30 day, Stop date: 04/10/18 9:00:00 CDT No Longer Active 03/12/2018 [facility] clopidogrel Notes: (Same As: P lavix) No Longer Active 03/12/2018 [facility] Aspirin 81 MG Enteric Coated Tablet Notes: Do not crush or chew. (Same As: Ecotrin) No Longer Active 03/12/2018 [facility] metoprolol extended release No hiral: (Same as: Toprol XL) Do Not Crush No Longer Active 03/12/2018 [facility] Terazosin Notes: (Same As: Hyt rin) No Longer Active 03/12/2018 [facility] Famotidine Notes: (Same as: Pe pcid) No Longer Active 03/12/2018 [facility] heparin additive 25,000 unit [12 unit/kg /hr] + Premix Diluent Dextrose 5% 500 mL 500 mL, Rate: 19.01 ml/hr, Infuse over: 26.3 hr, Route: IV, Dosing Weight 79.2 kg, Total Volume: 500 mL, Start date: 03/11/18 17:52:00 CDT, Duration: 30 day, Stop date: 04/10/18 17:51:00 CDT, 1.98, m2 No Longer Active 03/11/2018 [facility] Heparin 30 unit/kg Bolus (Heparin Dosing Weight) Route: IVP, PRN, 2,400 unit, 2.4 mL, Drug form: INJ, PRN, Heparin Protocol, Start date: 03/11/18 17:52:00 CDT Stop date: 04/10/18 17:51:00 CDT, 30 day No Longer Active 03/11/2018 [facility] Heparin 60 unit/kg Bolus (Heparin Dosing Weight) Route: IVP, PRN, 4,800 unit, 4.8 mL, Drug form: INJ, PRN, Heparin Protocol, Start date: 03/11/18 17:52:00 CDT Stop date: 04/10/18 17:51:00 CDT, 30 day No Longer Active 03/11/2018 [facility] Alprazolam 0.5 MG Oral Tablet 0.5 mg, 1 tab, Route: PO, ONCE, Dosing Weight 98.8, kg, Start date: 03/11/18 17:35:00 CDT, Stop date: 03/11/18 17:35:00 CDT Inactive 03/11/2018 [facility] Clotrimazole 10 MG/ML Topical Cream [Lotrimin] Notes: For external use only. (Same As: Lotrimin AF, Mycelex) No Longer Active 03/11/2018 [facility] Ondansetron Notes: (Same as: Z conchita) No Longer Active 03/11/2018 [facility] Morphine 4 mg, 2 mL, Route: IV P, Drug form: SOLN, Q2H, Dosing Weight 98.8, kg, PRN Pain Score 7-10, Start date: 03/11/18 16:20:00 CDT, Duration: 30 day, Stop date: 04/10/18 16:19:00 CDT No Longer Active 03/11/2018 [facility] Nitroglycerin Notes: (Same as: Nitroquick, Nitrostat) "Do Not Crush" Sublingual tablet No Longer Active 03/11/2018 [facility] Sodium Chloride 0.9% IV 750 mL 750 mL, Rate: 75 ml/hr, Infuse over: 10 hr, Route: IV, Dosing Weight 98.8 kg, Total Volume: 750, Start date: 03/11/18 16:20:00 CDT, Duration: 10 hr, Stop date: 03/12/18 2:19:00 CDT, 2.21, m2 No Longer Active 03/11/2018 [facility] prasugrel 60 mg, Route: PO, Dr ug form: TAB, ONCE, Dosing Weight 98.8, kg, Priority: NOW, Start date: 03/11/18 16:19:00 CDT, Stop date: 03/11/18 16:19:00 CDT Inactive 03/11/2018 [facility] atorvastatin PO, Daily, 0 Refi ll(s) No Longer Active 03/11/2018 [facility] lisinopril 20 mg oral tablet 2 0 mg = 1 tab, PO, Daily, 0 Refill(s) Active 03/11/2018 [facility] Clotrimazole 10 MG/ML Topical Cream [Lotrimin] 1 appl, TOP, BID, 0 Refill(s) Active 03/11/2018 [facility] Aspirin 81 MG Chewable Tablet 81 mg = 1 tab, PO, Daily, tab, 0 Refill(s) Active 03/11/2018 [facility] terazosin 10 mg oral capsule 1 0 mg = 1 cap, PO, Bedtime, 0 Refill(s) Active 03/11/2018 [facility] citalopram 40 mg oral tablet 2 0 mg = 0.5 tab, PO, Daily, 0 Refill(s) Active 03/11/2018 [facility] Alprazolam 0.5 MG Oral Tablet Notes: With food or milk (Same as: Xanax) Inactive 03/11/2018 [facility] Allergies, Adverse Reactions, Alerts Substance Category Reaction Severity Reaction type Status Date Reported Comments Source Vicodin Assertion Drug allergy Active [facility] Benadryl Assertion Vicodin Drug allergy Active [facility] Immunizations Immunization Date Given Site Status Last Updated Comments Source pneumococcal 13-valent vaccine 03/13/2018 Left Gluteus Medius completed Brandon Betzy theast, [facility] Results Order Name Results Value Reference Range Date Interpretation Comments Source ELECTROLYTES AGAP 9.7 10.0 - 20.0 03/13/2018 [facility] ELECTROLYTES eGFR 53 03/13/2018 Result Comment: The [...] should be multiplied by the estimated BMI. [facility] ELECTROLYTES Sodium Lvl 138 135 - 145 03/13/2018 [facility] ELECTROLYTES CO2 24 24 - 32 03/13/2018 [facility] ELECTROLYTES Potassium Lvl 3.7 3.5 - 5.1 03/13/2018 [facility] ELECTROLYTES Chloride Lvl 108 95 - 109 03/13/2018 [facility] ELECTROLYTES Calcium Lvl 7.8 8.5 - 10.5 03/13/2018 [facility] ELECTROLYTES Glucose Lvl 118 70 - 99 03/13/2018 [facility] ELECTROLYTES BUN 16 7 - 22 03/13/2018 [facility] ELECTROLYTES Creatinine Lvl 1.0 7 0.50 - 1.40 03/13/2018 [facility] HEMATOLOGY Platelet 275 133 - 450 03/13/2018 [facility] HEMATOLOGY RDW 13.1 11.5 - 14.5 03/13/2018 [facility] HEMATOLOGY MPV 7.8 7.4 - 10.4 03/13/2018 [facility] HEMATOLOGY MCHC 36.0 32.0 - 36.0 03/13/2018 [facility] HEMATOLOGY MCV 95.3 80.0 - 98.0 03/13/2018 [facility] MCH 34.3 27.0 - 31.0 03/13/2018 [facility] HEMATOLOGY WBC 11.4 3.7 - 10.4 03/13/2018 [facility] Hgb 13.3 12.0 - 16.0 03/13/2018 [facility] HEMATOLOGY Hct 36.9 36.0 - 48.0 03/13/2018 [facility] HEMATOLOGY RBC 3.87 4.20 - 5.40 03/13/2018 [facility] HEMATOLOGY PTT 30.7 22.9 - 35.8 03/13/2018 [facility] HEMATOLOGY PT 12.8 12.0 - 14.7 03/13/2018 [facility] HEMATOLOGY INR 0.96 0.85 - 1.17 03/13/2018 [facility] HEMATOLOGY PTT 164.1 22.9 - 35.8 03/12/2018 Result Comment: Critical Result(s) saeed samir Taylor at 03/12/2018 14:34 by LINDA. Read back OK. [facility] CHEM PANEL eGFR 62 03/12/2018 Result Comment: [...] should be multiplied by the estimated BMI. [facility] CHEM PANEL Total Protein 6.4 6.4 - 8.4 03/12/2018 [facility] CHEM PANEL AGAP 11.0 10.0 - 20.0 03/12/2018 [facility] CHEM PANEL B/C Ratio 17 6 - 25 03/12/2018 [facility] CHEM PANEL Calcium Lvl 8.1 8.5 - 10.5 03/12/2018 [facility] CHEM PANEL Creatinine Lvl 0.95 0.50 - 1.40 03/12/2018 [facility] CHEM PANEL Sodium Lvl 140 135 - 145 03/12/2018 [facility] CHEM PANEL Potassium Lvl 4.0 3.5 - 5.1 03/12/2018 [facility] CHEM PANEL Chloride Lvl 107 95 - 109 03/12/2018 [facility] CHEM PANEL CO2 26 24 - 32 03/12/2018 [facility] CHEM PANEL BUN 16 7 - 22 03/12/2018 [facility] CHEM PANEL Glucose Lvl 113 70 - 99 03/12/2018 [facility] CHEM PANEL Bili Total 0.7 0.2 - 1.3 03/12/2018 [facility] CHEM PANEL Alk Phos 54 39 - 136 03/12/2018 [facility] CHEM PANEL AST 31 0 - 37 03/12/2018 [facility] CHEM PANEL Albumin Lvl 3.3 3.5 - 5.0 03/12/2018 [facility] CHEM PANEL Globulin 3.1 2.7 - 4.2 03/12/2018 [facility] CHEM PANEL A/G Ratio 1.1 0.7 - 1.6 03/12/2018 [facility] CHEM PANEL ALT 49 0 - 65 03/12/2018 [facility] HEMATOLOGY Basophils 0.5 0.0 - 1.0 03/12/2018 [facility] HEMATOLOGY Lymphocytes # 4.5 1.0 - 5.5 03/12/2018 [facility] HEMATOLOGY Segs-Bands # 6.2 1.5 - 8.1 03/12/2018 [facility] HEMATOLOGY Monocytes 8.5 2.0 - 12.0 03/12/2018 [facility] HEMATOLOGY Eosinophils 1.5 0.0 - 4.0 03/12/2018 [facility] HEMATOLOGY Lymphocytes 37.5 20.0 - 40.0 03/12/2018 [facility] HEMATOLOGY Segs 52.0 45.0 - 75.0 03/12/2018 [facility] HEMATOLOGY Eosinophils # 0.2 0.0 - 0.5 03/12/2018 [facility] HEMATOLOGY Monocytes # 1.0 0.0 - 0.8 03/12/2018 [facility] HEMATOLOGY Basophils # 0.1 0.0 - 0.2 03/12/2018 [facility] HEMATOLOGY INR 1.13 0.85 - 1.17 03/12/2018 [facility] HEMATOLOGY PT 14.5 12.0 - 14.7 03/12/2018 [facility] HEMATOLOGY PTT 47.1 22.9 - 35.8 03/12/2018 [facility] HEMATOLOGY MPV 7.8 7.4 - 10.4 03/12/2018 [facility] HEMATOLOGY Platelet 298 133 - 450 03/12/2018 [facility] HEMATOLOGY MCV 94.2 80.0 - 98.0 03/12/2018 [facility] HEMATOLOGY MCH 34.5 27.0 - 31.0 03/12/2018 [facility] HEMATOLOGY RDW 13.3 11.5 - 14.5 03/12/2018 [facility] HEMATOLOGY MCHC 36.7 32.0 - 36.0 03/12/2018 [facility] HEMATOLOGY Hct 38.8 36.0 - 48.0 03/12/2018 [facility] HEMATOLOGY RBC 4.12 4.20 - 5.40 03/12/2018 [facility] HEMATOLOGY Hgb 14.2 12.0 - 16.0 03/12/2018 [facility] HEMATOLOGY WBC 12.0 3.7 - 10.4 03/12/2018 [facility] HEMATOLOGY INR 1.09 0.85 - 1.17 03/12/2018 [facility] HEMATOLOGY PT 14.1 12.0 - 14.7 03/12/2018 [facility] HEMATOLOGY Basophils # 0.1 0.0 - 0.2 03/12/2018 [facility] HEMATOLOGY Lymphocytes # 5.8 1.0 - 5.5 03/12/2018 [facility] HEMATOLOGY Eosinophils # 0.3 0.0 - 0.5 03/12/2018 [facility] HEMATOLOGY Eosinophils 2.4 0.0 - 4.0 03/12/2018 [facility] HEMATOLOGY Basophils 0.9 0.0 - 1.0 03/12/2018 [facility] HEMATOLOGY Segs-Bands # 4.9 1.5 - 8.1 03/12/2018 [facility] HEMATOLOGY Monocytes 9.3 2.0 - 12.0 03/12/2018 [facility] HEMATOLOGY Monocytes # 1.1 0.0 - 0.8 03/12/2018 [facility] HEMATOLOGY Segs 39.9 45.0 - 75.0 03/12/2018 [facility] HEMATOLOGY Lymphocytes 47.5 20.0 - 40.0 03/12/2018 [facility] HEMATOLOGY RDW 13.4 11.5 - 14.5 03/12/2018 [facility] HEMATOLOGY Platelet 316 133 - 450 03/12/2018 [facility] HEMATOLOGY MPV 7.8 7.4 - 10.4 03/12/2018 [facility] HEMATOLOGY Hgb 14.9 12.0 - 16.0 03/12/2018 [facility] HEMATOLOGY MCH 34.2 27.0 - 31.0 03/12/2018 [facility] MCHC 35.7 32.0 - 36.0 03/12/2018 [facility] HEMATOLOGY RBC 4.35 4.20 - 5.40 03/12/2018 [facility] HEMATOLOGY MCV 96.0 80.0 - 98.0 03/12/2018 [facility] HEMATOLOGY WBC 12.2 3.7 - 10.4 03/12/2018 [facility] HEMATOLOGY Hct 41.8 36.0 - 48.0 03/12/2018 [facility] CHEM PANEL eGFR 58 03/11/2018 Result Comment: [...] should be multiplied by the estimated BMI. [facility] CHEM PANEL BUN 13 7 - 22 03/11/2018 [facility] CHEM PANEL Glucose Lvl 87 70 - 99 03/11/2018 [facility] CHEM PANEL Alk Phos 60 39 - 136 03/11/2018 [facility] CHEM PANEL Creatinine Lvl 1.00 0.50 - 1.40 03/11/2018 [facility] CHEM PANEL Sodium Lvl 140 135 - 145 03/11/2018 [facility] CHEM PANEL Chloride Lvl 107 95 - 109 03/11/2018 [facility] CHEM PANEL CO2 24 24 - 32 03/11/2018 [facility] CHEM PANEL Total Protein 7.0 6.4 - 8.4 03/11/2018 [facility] CHEM PANEL Calcium Lvl 8.9 8.5 - 10.5 03/11/2018 [facility] CHEM PANEL Potassium Lvl 4.6 3.5 - 5.1 03/11/2018 [facility] CHEM PANEL AST 28 0 - 37 03/11/2018 [facility] CHEM PANEL ALT 51 0 - 65 03/11/2018 [facility] CHEM PANEL Albumin Lvl 3.9 3.5 - 5.0 03/11/2018 [facility] CHEM PANEL Bili Total 0.3 0.2 - 1.3 03/11/2018 [facility] CHEM PANEL A/G Ratio 1.3 0.7 - 1.6 03/11/2018 [facility] CHEM PANEL Globulin 3.1 2.7 - 4.2 03/11/2018 [facility] CHEM PANEL B/C Ratio 13 6 - 25 03/11/2018 [facility] CHEM PANEL AGAP 13.6 10.0 - 20.0 03/11/2018 [facility] HEMATOLOGY Basophils # 0.1 0.0 - 0.2 03/11/2018 [facility] HEMATOLOGY Monocytes # 1.0 0.0 - 0.8 03/11/2018 [facility] HEMATOLOGY Eosinophils # 0.3 0.0 - 0.5 03/11/2018 [facility] HEMATOLOGY Lymphocytes # 4.3 1.0 - 5.5 03/11/2018 [facility] HEMATOLOGY Eosinophils 2.8 0.0 - 4.0 03/11/2018 [facility] HEMATOLOGY Basophils 1.0 0.0 - 1.0 03/11/2018 [facility] Segs-Bands # 5.8 1.5 - 8.1 03/11/2018 [facility] HEMATOLOGY Segs 50.1 45.0 - 75.0 03/11/2018 [facility] Lymphocytes 37.1 20.0 - 40.0 03/11/2018 [facility] Monocytes 9.0 2.0 - 12.0 03/11/2018 [facility] LIPIDS CHD Risk 6.91 3.90 - 5.80 03/11/2018 [facility] LIPIDS LDL (Calculated) 73 <=99 mg/dL 03/11/2018 [facility] LIPIDS VLDL 63 03/11/2018 [facility] LIPIDS HDL 23 >=61 mg/dL 03/11/2018 [facility] LIPIDS Trig 315 <=149 mg/dL 03/11/2018 [facility] LIPIDS Chol 159 <=199 mg/dL 03/11/2018 [facility] Pathology Reports No Data Provided for This [...] MRI of the brachial plex us. SL: [id number] 07/25/2018 [facility] Spine cervical wo contrast MRI Clinical Indication: [...] foramina should be confirmed on CT. SL: [id number] 07/25/2018 [facility] Denis Consultation Notes No Data Provided for This Section Discharge Summaries No Data Provided for This Section History and Physicals No Data Provided for This Section Vital Signs Vital Sign Value Date Comments Source Respitory Rate 15 03/13/2018 [facility] Temperature Oral (F) 98.6 F 03/13/2018 [facility] Systolic (mm Hg) 123 03/13/2018 [facility] Diastolic (mm Hg) 59 03/13/2018 [facility] Systolic (mm Hg) 113 03/13/2018 [facility] Diastolic (mm Hg) 74 03/13/2018 [facility] Respitory Rate 15 03/13/2018 [facility] Systolic (mm Hg) 133 03/13/2018 [facility] Diastolic (mm Hg) 69 03/13/2018 [facility] Respitory Rate 18 03/13/2018 [facility] Temperature Oral (F) 98.9 F 03/13/2018 [facility] Temperature Oral (F) 98.3 F 03/13/2018 [facility] Weight 101.3 03/12/2018 [facility] Height 173.99 cm 03/12/2018 [facility] BMI Calculated 33.46 03/12/2018 [facility] Height 175.2 cm 03/11/2018 [facility] BMI Calculated 32.19 03/11/2018 [facility] Weight 98.8 03/11/2018 [facility] Encounters Location Location Details Encounter Type Encounter Number Reason For Visit Attending Provider ADM Date DC Date Status Source OD [id number] 490 - BRONCHITIS NOS WILBERT CHAVES 08/29/2012 [facility] [id number] Ye Thomas 03/12/2018 03/13/2018 [facility] [id number] Shiv Brambila 07/25/2018 07/26/2018 [facility] Procedures Procedure Code Date Perfomer Comments Source Bilateral inguinal hernia repair [id number] [facility] Cervical laminectomy [id number] [facility] Assessment and Plan Assessment and Plan Date [...] seen and examined by me with the resident/PERSONAL CONSULTANT/PA and I agree with the History/Exam documented. CAD - EMERY GRINDER RCA PCI - done, in ICU overnight 03/13/2018 [facility] Plan of Care No Data Provided for [...] at age: 62; entered on: 03/12/18 03/12/2018 [facility] Family History No Data Provided for This Section Advance Directives No Data Provided for This Section Functional Status No Data Provided for This Section
--- OUTSIDE RECORDS SUMMARY | 2020-09-17 16:41 | XMS REPORT | Continuity of Care Document ---
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, Trae yip MD, PhDMemorial [facility] Centererum or plasma creatine kinase measurement (enzymatic activity/volume)2020-07-07 19:15:00* Test Item Value Reference Range Interpretation Comments Creatine Kinase (test code = 2157-6) 52 30-200 [facility] Centererum or plasma creatine kinase MB measurement (mass/volume)2020-07-07 19:15:00* Test Item Value Reference Range Interpretation Comments Creatine Kinase MB (test code = 77621-9) 1.70 0-5.0 [facility] PasoTroponin I measurement by highly sensitive enzyme ndpgeshtamm1446-00-01 19:15:00* Test Item Value Reference Range Interpretation Comments Troponin I (test code = 24508-2) 0.065 0-0.300 [facility] PasoPhosphorus psvrbpjbndo5453-62-76 13:24:00 * Test Item Value Reference Range Interpretation Comments Phosphorus Level (test code = KOX8612) 3.0 2.3-4.7 [facility] Centererum or plasma magnesium measurement (mass/volume)2020-07-07 13:24:00* Test Item Value Reference Range Interpretation Comments Magnesium Level (test code = 04759-0) 2.0 1.3-2.1 [facility] PasoCT ABDOMEN/PELVIS [id number] 07:36:00 [facility] [address] [place] [address] Patient Name: JOSEPH LONGO MR #: [id number] : 1950 Age/Sex: 70/M Req #: [id number] Adm Physician: Ordered by: TRAE LÓPEZ MD Report #: [id number] Location: ER Room/Bed: Procedure: [id number] CT/CT A BDOMEN/PELVIS W Exam Date: 07/07/20 Exam Time: 0700 REPORT STATUS: Signed EXAM: CT A bdomen and Pelvis WITH contrast INDICATION: abd pain COMPARISON: CT ervin ed 05/29/2020. TECHNIQUE: Abdomen and pelvis were scanned utilizing a multidetec tor helical scanner from the lung base to the pubic symphysis after administra tion of IV contrast. Coronal and sagittal reformations were obtained. Routine protocol was performed. Scan was performed when during portal venous phase. IV CONTRAST: 100 mL of Isovue 370 ORAL CONTRAST: None COMPLICATIONS: None RADIATION DOSE: Total DLP: 532.08 mGy*cm Estimated effective dose: (DLP x 0.015 x size factor) mSv CTDIvol has been reviewed. It is below the limits set by the Radiation Protocol Commit maurice (RPC). Dose modulation, iterative reconstruction, and/or weight based adjustment of the mA/kV was utilized to reduce the radiation dose to as low a s reasonably achievable. FINDINGS: LINES and TUBES: None. LOWE R THORAX: Left apical mass invading the anterior mediastinal fat at the level of the arch and hilar region is partially imaged. Small left pleural effusion . Compression of the left main pulmonary artery and its proximal branches appe ars mildly increased from prior. The imaged pulmonary arteries are opacified d istally. Tumor mass compression of the left upper lobe bronchi has mildly incr eased from prior. Pulmonary artery is mildly dilated measuring 3.3 cm. En larging 11 mm nodule in the right lower lobe, previously 5 mm. Additional scat tered sub-6 mm pulmonary nodules are stable. Centrilobular emphysema. HEPATOBILIARY: No focal hepatic lesions. No biliary ductal dilation. GALL BLADDER: No radio-opaque stones or sludge. No wall thickening. SPLEEN: No splenomegaly. PANCREAS: No focal masses or ductal dilatation. ADREN ALS: No adrenal nodules KIDNEYS/URETERS: Kidneys enhance symmetrically. N o hydronephrosis. No cystic or solid mass lesions. No stones. GI TRACT: No abnormal distention, wall thickening, or evidence of bowel obstruction. Appendix is normal. The stomach is distended with air, without evidence of obstructive process distally. PELVIC ORGANS/BLADDER: No significant abnorma lity. LYMPH NODES: No lymphadenopathy. VESSELS: Unremarkable. PER ITONEUM / RETROPERITONEUM: No free air or fluid. BONES: There are degenerat gerardo changes in the spine. SOFT TISSUES: Unremarkable. IMPR ESSION: 1. No acute abdominopelvic process. 2. Known left suprahilar mass which invades the mediastinal fat is partially imaged with mildly increased m ass effect upon the left main pulmonary artery and left upper lobe bronchi. Im aged pulmonary vessels appear patent distally. 3. Enlarging 11 mm nodule in t he right lower lobe, previously 5 mm, concerning for metastatic lesion in the right lung. Signed by: Lili Stone MD on 07/07/2020 7:51 AM Dictat ed By: LILI STONE MD 0 Transcribed By: RADHA on 07/07/20750 COPY TO: EMMA LÓPEZ MD CT BRAIN [id number] 07:33:00 [place] [address] Patient Name: JOSEPH LONGO MR #: [id number] : 1950 Age/Sex: 70/M Req #: [id number] Adm Physician: Ordered by: TRAE LÓPEZ MD Report #: [id number] Location: ER Room/Bed: Procedure: [id number] CT/CT B [facility] Exam Date: 07/07/20 Exam Time: 0700 REPORT STATUS: Signed EXAMINATION: Head CT without contrast. HISTORY: 70-year-old male with dizziness, sepsis, lung /bone cancer. COMPARISON: Head CT 04/17/2018 TECHNIQUE: Helical axial images of the head without contrast were obtained. Dose modulation, iterative recons truction, and/or weight based adjustment of the mA/kV was utilized to reduce t he radiation dose to as low as reasonably achievable. FINDINGS: Parenchyma: 1. No abnormal densities. 2. No mass or hemorrhage. No CT ev idence of acute territorial vascular insult. Extra-axial spaces :No abnormal density. No extra-axial fluid collections Brain volume: Nor mal for age. Ventricles: No hydrocephalus or displacement. Meka floridalma: No density suggestive of thrombus. Dural sinuses: No abnormal dens ity. Foramen magnum: No mass, Chiari malformation, or basilar invaginati on. Sella: No obvious mass. Paranasal/mastoid sinuses: Imaged p ortions unremarkable. Skull/Scalp: No lytic or blastic lesions. No frac tures. IMPRESSION: No intracranial abnormalities, unchanged compared to head CT of 04/17/2018 Signed by: Dr. Ronnie Ferreira M.D. on 07/07/2020 7:39 AM Dictated By: RONNIE FERREIRA MD 8 Transcribed By: RADHA on 07/07/20738 COPY TO: TRAE SUAZO MD CHEST SINGLE (PORTABLE)2020-07-07 07:28:00 [place] [address] Patient Name: JOSEPH LONGO MR #: [id number] : 1950 Age/Sex: 70/M Req #: [id number] Adm Physician: Ordered by: TRAE LÓPEZ MD Report #: [id number] Location: ER Room/Bed: Procedure: [id number] DX/CHES T SINGLE (PORTABLE) Exam Date: 07/07/20 Exam Time: 0 700 REPORT STATUS: Signed EXAMIN ATION: CHEST SINGLE (PORTABLE) INDICATION: weakness, sob COMPARIS ON: Chest CT dated 05/29/2020. Chest radiograph dated 04/01/2020. FINDIN GS: Unchanged cardiac silhouette. Increased density at the left kvng ng apex extending about the aortic arch is not significantly changed, and kev elates with known malignancy is seen on this chest CT dated 05/29/2020. Sma ll left pleural effusion better seen on chest CT the abdomen and pelvis perfor med today. The right lung is clear. Stable elevation of left hemidiaphragm. IMPRESSION: 1. No acute thoracic process. 2. Unchanged left apical d ensity which correlates with known malignancy as seen on chest CT dated 05/29/20. Signed by: Lili Stone MD on 07/07/2020 7:36 AM Dictated By : LILI STONE MD 5 Transcribed By: RADHA on 07/07/20735 COPY TO: TRAE LÓPEZ MD Urine color tchsmixrzmzoy5191-88-32 05:23:00* Test Item Value Reference Range Interpretation Comments Urine Color (test code = 5778-6) YELLOW YELLOW [facility] PasoUrine dlbquah4344-35-40 05:23:00* Test Item Value Reference Range Interpretation Comments Urine Clarity (test code = 07940-8) CLEAR CLEAR [facility] Centerpecific gravity of Urine by Test strip 2020-07-07 05:23:00* Test Item Value Reference Range Interpretation Comments Urine Specific [place] (test code = 5811-5) 1.020 1.010-1.02 5 [facility] PasoU[facility] pH measurement by automated test wkljo5325-90-49 05:23:00* Test Item Value Reference Range Interpretation Comments Urine pH (test code = 56451-7) 7 5-7 [facility] PasoUrine leukocyte esterase detection by stdekelz6938-03-69 05:23:00* Test Item Value Reference Range Interpretation Comments Urine Leukocyte Esterase (test code = 5799-2) NEGATIVE NEGATIVE [facility] PasoUrine nitrite lfmydadhf9359-36-97 05:23:00* Test Item Value Reference Range Interpretation Comments Urine Nitrite (test code = 30628-9) NEGATIVE NEGATIVE [facility] PasoUrine protein measurement by test strip (mass/volume)2020-07-07 05:23:00* Test Item Value Reference Range Interpretation Comments Urine Protein (test code = 5804-0) NEGATIVE NEGATIVE [facility] PasoUrine glucose sbkphrbao2614-25-48 05:23:00* Test Item Value Reference Range Interpretation Comments Urine Glucose (UA) (test code = 2349-9) NEGATIVE NEGATIVE [facility] PasoUrine ketones detection by automated test qveve0340-55-06 05:23:00* Test Item Value Reference Range Interpretation Comments Urine Ketones (test code = 15474-6) NEGATIVE NEGATIVE [facility] PasoUrine urobilinogen measurement by test strip (mass/volume)2020-07-07 05:23:00* Test Item Value Reference Range Interpretation Comments Urine Urobilinogen (test code = 03475-1) 0.2 0.2-1 [facility] PasoUrine total bilirubin measurement (mass/volume)2020-07-07 05:23:00* Test Item Value Reference Range Interpretation Comments Urine Bilirubin (test code = 1978-6) NEGATIVE NEGATIVE [facility] PasoUrine erythrocytes naycxdjse1082-16-40 05:23:00* Test Item Value Reference Range Interpretation Comments Urine Blood (test code = 78153-8) NEGATIVE NEGATIVE [facility] PasoAutomated urine sediment leukocyte count by microscopy (number/high power field)2020-07-07 05:23:00* Test Item Value Reference Range Interpretation Comments Urine WBC (test code = 5821-4) 0-5 0-5 [facility] PasoErythrocytes detection in urine sediment by light dixosjegjw3085-06-46 05:23:00* Test Item Value Reference Range Interpretation Comments Urine RBC (test code = 92879-9) 0-5 0-5 [facility] PasoBacteria detection in urine sediment by light yptdverlee2665-59-16 05:23:00* Test Item Value Reference Range Interpretation Comments Urine Bacteria (test code = 01895-6) MODERATE NONE [facility] PasoEpithelial cells detection in urine sediment by light rqrtyxxmbj7823-92-72 05:23:00* Test Item Value Reference Range Interpretation Comments Urine Epithelial Cells (test code = 30939-8) FEW NONE [facility] PasoMucus detection in urine sediment by light uwwreffrig6137-59-86 05:23:00* Test Item Value Reference Range Interpretation Comments Urine Mucus (test code = 8247-9) FEW RARE [facility] PasoProthrombin time (PT) in platelet poor plasma by coagulation hxzqu9541-86-84 05:15:00* Test Item Value Reference Range Interpretation Comments Prothrombin Time (test code = 5902-2) 13.1 11.9-14.5 [facility] PasoINR in Platelet poor plasma by Coagulation yaxol0050-36-78 05:15:00* Test Item Value Reference Range Interpretation Comments Prothromb Time International Ratio (test code = 6301-6) 0.94 Oral Anticoagulant Therapy INR Values:1. Low Intensity Therapy 1.5 - 2.02 . Moderate Intensity Therapy 2.0 - 3.03. High Intensity Therapy(1) 2.5 - 3. 54. High Intensity Therapy(2) 3.0 - 4.05. Panic Value INR > 5.0 [facility] PasoActivated partial thromboplastin time (aPTT) in platelet poor plasma by coagulation tgkua5114-74-45 05:15:00* Test Item Value Reference Range Interpretation Comments Activated Partial Thromboplast Time (test code = 74993-2) 33.1 23.8-35.5 [facility] PasoFluoroscopic procedure less than one hour zklgwwpp0649-74-64 05:15:00* Test Item Value Reference Range Interpretation Comments Lactic Acid Level (test code = Lactic Acid Level) 1.9 0.5- 2.0 [facility] Centererum or plasma total bilirubin measurement (mass/volume)2020-07-07 05:15:00* Test Item Value Reference Range Interpretation Comments Total Bilirubin (test code = 1975-2) 1.1 0.2-1.2 [facility] PasoFluoroscopic procedure less than one hour fiedhmsy1395-13-03 05:15:00* Test Item Value Reference Range Interpretation Comments Aspartate Amino Transf (AST/SGOT) (test code = Aspartate Amino Transf (AST/SGOT)) 22 5-34 [facility] Centererum or plasma alanine aminotransferase measurement (enzymatic activity/volume)2020-07-07 05:15:00* Test Item Value Reference Range Interpretation Comments Alanine Aminotransferase (ALT/SGPT) (test code = 1742-6) 28 0-55 [facility] Centererum or plasma protein measurement (mass/volume)2020-07-07 05:15:00* Test Item Value Reference Range Interpretation Comments Total Protein (test code = 2885-2) 7.8 6.5-8.1 [facility] Centererum or plasma albumin measurement (mass/volume)2020-07-07 05:15:00* Test Item Value Reference Range Interpretation Comments Albumin (test code = 1751-7) 4.1 3.5-5.0 [facility] PasoPlasma globulin measurement (mass/volume) 2020-07-07 05:15:00* Test Item Value Reference Range Interpretation Comments Globulin (test code = 29292-4) 3.7 2.3-3.5 [facility] Centererum or plasma albumin/globulin mass jlgpu2216-80-30 05:15:00* Test Item Value Reference Range Interpretation Comments Albumin/Globulin Ratio (test code = 1759-0) 1.1 0.8-2.0 [facility] Centererum or plasma alkaline phosphatase measurement (enzymatic activity/volume)2020-07-07 05:15:00* Test Item Value Reference Range Interpretation Comments Alkaline Phosphatase (test code = 6768-6) 73 40-150 [facility] PasoBlood nrlejjs9941-27-47 05:15:00* Test Item Value Reference Range Interpretation Comments Blood Culture (test code = 76413008) NO GROWTH AFTER 48 HOURS [facility] PasoCREATININE W ESTIMATED UGY7510-56-81 15:12:00* Test Item Value Reference Range Interpretation Comments BEDSIDE CREATININE (test code = CREATBED) mg/dL 0.7-1.3 L GLOMERULAR FILTRATION RATE POC (test code = GFRBED) 180 >6 0 H CREATININE W ESTIMATED AVJ8879-54-06 15:12:00* Test Item Value Reference Range Interpretation Comments BEDSIDE CREATININE (test code = CREATBED) 0.46 mg/dL 0.7-1.3 L GLOMERULAR FILTRATION RATE POC (test code = GFRBED) > 60 >6 0 H Previously reported result: 180 Edited by: TELLO on 06/25/20:768370/02/08 1512: GFRBED previously reported as: 180 H Blood leukocytes automated count (number/volume)2020-05-31 04:40:00* Test Item Value Reference Range Interpretation Comments White Blood Count (test code = 6690-2) 7.64 4.8-10.8 [facility] PasoBlood erythrocytes automated count (number/volume)2020-05-31 04:40:00* Test Item Value Reference Range Interpretation Comments Red Blood Count (test code = 789-8) 3.53 4.3-5.7 [facility] PasoBlood hemoglobin measurement (moles/volume)2020-05-31 04:40:00* Test Item Value Reference Range Interpretation Comments Hemoglobin (test code = 91858-9) 11.3 14.0-18.0 [facility] PasoAutomated blood hematocrit (volume fraction)2020-05-31 04:40:00* Test Item Value Reference Range Interpretation Comments Hematocrit (test code = 4544-3) 32.5 38.2-49.6 [facility] PasoAutomated erythrocyte mean corpuscular gzodrs0464-52-64 04:40:00* Test Item Value Reference Range Interpretation Comments Mean Corpuscular Volume (test code = 787-2) 92.1 81-99 [facility] PasoAutomated erythrocyte mean corpuscular hemoglobin (mass per erythrocyte)2020-05-31 04:40:00* Test Item Value Reference Range Interpretation Comments Mean Corpuscular Hemoglobin (test code = 785-6) 32.0 28-32 [facility] PasoAutomated erythrocyte mean corpuscular hemoglobin concentration measurement (mass/volume)2020-05-31 04:40:00* Test Item Value Reference Range Interpretation Comments Mean Corpuscular Hemoglobin Concent (test code = 786-4) 34.8 31-35 [facility] PasoRDW XpvLh-Udz2187-81-10 04:40:00* Test Item Value Reference Range Interpretation Comments Red Cell Distribution Width (test code = 44639-0) 14.0 11.7 -14.4 [facility] PasoAutomated blood platelet count (count/volume)2020-05-31 04:40:00* Test Item Value Reference Range Interpretation Comments Platelet Count (test code = 777-3) 219 140-360 [facility] PasoAutomated blood segmented neutrophil count as percentage of total bhirlkzalp6562-10-32 04:40:00* Test Item Value Reference Range Interpretation Comments Neutrophils (%) (Auto) (test code = 71528-2) 45.6 38.7-80.0 [facility] PasoAutfirsthealthed blood lymphocyte count as percentage ot total bsjechhoym7411-52-36 04:40:00* Test Item Value Reference Range Interpretation Comments Lymphocytes (%) (Auto) (test code = 736-9) 40.1 18.0-39.1 [facility] PasoAutomated blood monocyte count as percentage of total asodpfdwmm4400-99-92 04:40:00* Test Item Value Reference Range Interpretation Comments Monocytes (%) (Auto) (test code = 5905-5) 11.6 4.4-11.3 [facility] PasoAutfirsthealthed blood eosinophil count as percentage of total vqfjnfqnou1396-92-10 04:40:00* Test Item Value Reference Range Interpretation Comments Eosinophils (%) (Auto) (test code = 713-8) 1.3 0.0-6.0 [facility] PasoAutcritical access hospital blood basophil count as percentage of total swlpypkrqu3905-98-86 04:40:00* Test Item Value Reference Range Interpretation Comments Basophils (%) (Auto) (test code = 706-2) 1.0 0.0-1.0 [facility] PasoFluoroscopic procedure less than one hour xgyobomx2565-97-62 04:40:00* Test Item Value Reference Range Interpretation Comments IM GRANULOCYTES % (test code = IM GRANULOCYTES %) 0.4 0.0- 1.0 [facility] PasoAutomated blood neutrophil count 2020-05-31 04:40:00* Test Item Value Reference Range Interpretation Comments Neutrophils # (Auto) (test code = 751-8) 3.5 2.1-6.9 [facility] PasoBlood lymphocytes count (number/volume) 2020-05-31 04:40:00* Test Item Value Reference Range Interpretation Comments Lymphocytes # (Auto) (test code = 48843-4) 3.1 1.0-3.2 [facility] PasoBlood monocytes automated count (number/volume)2020-05-31 04:40:00* Test Item Value Reference Range Interpretation Comments Monocytes # (Auto) (test code = 742-7) 0.9 0.2-0.8 [facility] PasoAutomated blood eosinophil count 2020-05-31 04:40:00* Test Item Value Reference Range Interpretation Comments Eosinophils # (Auto) (test code = 711-2) 0.1 0.0-0.4 [facility] PasoAutomated blood basophil count (count/volume)2020-05-31 04:40:00* Test Item Value Reference Range Interpretation Comments Basophils # (Auto) (test code = 704-7) 0.1 0.0-0.1 [facility] PasoFluoroscopic procedure less than one hour ybnkastd0664-57-11 04:40:00* Test Item Value Reference Range Interpretation Comments Absolute Immature Granulocyte (auto (hiral t code = Absolute Immature Granulocyte (auto) 0.03 0-0.1 [facility] Centererum or plasma sodium measurement (moles/volume)2020-05-31 04:40:00* Test Item Value Reference Range Interpretation Comments Sodium Level (test code = 2951-2) 134 136-145 [facility] Centererum or plasma potassium measurement (moles/volume)2020-05-31 04:40:00* Test Item Value Reference Range Interpretation Comments Potassium Level (test code = 2823-3) 4.8 3.5-5.1 [facility]rum or plasma chloride measurement (moles/volume)2020-05-31 04:40:00* Test Item Value Reference Range Interpretation Comments Chloride Level (test code = 2075-0) 104 98-107 [facility]ererum or plasma carbon dioxide, total measurement (moles/volume)2020-05-31 04:40:00* Test Item Value Reference Range Interpretation Comments Carbon Dioxide Level (test code = 2028-9) 24 22-29 [facility]ererum or plasma anion rou1957-49-95 04:40:00* Test Item Value Reference Range Interpretation Comments Anion Gap (test code = 81221-0) 10.8 8-16 [facility]ererum or plasma urea nitrogen measurement (mass/volume)2020-05-31 04:40:00* Test Item Value Reference Range Interpretation Comments Blood Urea Nitrogen (test code = 3094-0) 8 7-26 [facility]ererum or plasma creatinine measurement (mass/volume)2020-05-31 04:40:00* Test Item Value Reference Range Interpretation Comments Creatinine (test code = 2160-0) 0.70 0.72-1.25 [facility]ererum or plasma urea nitrogen/creatinine mass fszbx7977-76-80 04:40:00* Test Item Value Reference Range Interpretation Comments BUN/Creatinine Ratio (test code = 3097-3) 11 6- [facility] PasoEstimated glomerular filtration rate (GFR) fhwyaspijmddc4388-93-04 04:40:00* Test Item Value Reference Range Interpretation Comments Estimat Glomerular Filtration Rate (test code = 196040532) > 60 >60 Ranges were taken from the National Kidney Disease Education Program and the [facility] Kid[facility] Foundation literature.Reference ranges:60 or greater: Laejxk17-17 ( for 3 consecutive months): Chronic kidney disease 15 or less: Kidney failureUniversity [facility] of [facility] PasoGlucose jyjkotebfxc3408-29-09 04:40:00* Test Item Value Reference Range Interpretation Comments Glucose Level (test code = UXZ1687) 93 74-118 [facility]ererum or plasma calcium measurement (mass/volume)2020-05-31 04:40:00* Test Item Value Reference Range Interpretation Comments Calcium Level (test code = 47774-1) 8.4 8.4-10.2 [facility] PasoPhosphorus ayvfxoumfmp6684-56-55 04:40:00 * Test Item Value Reference Range Interpretation Comments Phosphorus Level (test code = NUX3628) 3.6 2.3-4.7 [facility]ererum or plasma magnesium measurement (mass/volume)2020-05-31 04:40:00* Test Item Value Reference Range Interpretation Comments Magnesium Level (test code = 85048-7) 1.7 1.3-2.1 [facility]ererum or plasma creatine kinase measurement (enzymatic activity/volume)2020-05-30 09:55:00* Test Item Value Reference Range Interpretation Comments Creatine Kinase (test code = 2157-6) 36 30-200 [facility]ererum or plasma creatine kinase MB measurement (mass/volume)2020-05-30 09:55:00* Test Item Value Reference Range Interpretation Comments Creatine Kinase MB (test code = 18613-9) 1.00 0-5.0 [facility] PasoTroponin I measurement by highly sensitive enzyme eyjjnwcelew0805-36-54 09:55:00* Test Item Value Reference Range Interpretation Comments Troponin I (test code = 04960-1) < 0.001 0-0.300 [facility] PasoCT CHEST J7811-25-13 15:46:00 [facility] [address] [place] [address] Patient Name: JOSEPH LONGO MR #: [id number] : 1950 Age/Sex: 70/M Req #: [id number] Adm Physician: MIR DIALLO MD Ordered by: ADWOA ARNOLD MD Report #: [id number] Location: MED/SURG[address] [place] [address]/Bed: [facility] Procedure: [id number] CT/CT CHES T W Exam Date: 05/29/20 [...] M.D. on 05/29/2020 4:09 PM Dictated By: CM PULIDO MD, MD 08 COPY TO: ELIJAH ARNOLD MD Serum or plasma total bilirubin measurement (mass/volume) 2020-05-29 04:50:00* Test Item Value Reference Range Interpretation Comments Total Bilirubin (test code = 1975-2) 0.7 0.2-1.2 [facility] PasoFluoroscopic procedure less than one hour beeazggy1618-71-97 04:50:00* Test Item Value Reference Range Interpretation Comments Aspartate Amino Transf (AST/SGOT) (test code = Aspartate Amino Transf (AST/SGOT)) 20 5-34 [facility]ererum or plasma alanine aminotransferase measurement (enzymatic activity/volume)2020-05-29 04:50:00* Test Item Value Reference Range Interpretation Comments Alanine Aminotransferase (ALT/SGPT) (test code = 1742-6) 25 0-55 [facility]ererum or plasma protein measurement (mass/volume)2020-05-29 04:50:00* Test Item Value Reference Range Interpretation Comments Total Protein (test code = 2885-2) 6.1 6.5-8.1 [facility]ererum or plasma albumin measurement (mass/volume)2020-05-29 04:50:00* Test Item Value Reference Range Interpretation Comments Albumin (test code = 1751-7) 3.0 3.5-5.0 [facility] PasoPlasma globulin measurement (mass/volume) 2020-05-29 04:50:00* Test Item Value Reference Range Interpretation Comments Globulin (test code = 02210-4) 3.1 2.3-3.5 [facility]ererum or plasma albumin/globulin mass ipexx7551-69-23 04:50:00* Test Item Value Reference Range Interpretation Comments Albumin/Globulin Ratio (test code = 1759-0) 1.0 0.8-2.0 [facility]ererum or plasma alkaline phosphatase measurement (enzymatic activity/volume)2020-05-29 04:50:00* Test Item Value Reference Range Interpretation Comments Alkaline Phosphatase (test code = 6768-6) 84 40-150 [facility] PasoFluoroscopic procedure less than one hour tjwovbqo3845-70-45 16:52:00* Test Item Value Reference Range Interpretation Comments Coronavirus (PCR) (test code = Coronavirus (PCR)) NOT DETECTED NOTD ETECTED [employer] SARS-CoV-2 assay is a nucleic amplification test intended for the qualitative detection of RNA from SARS-CoV-2 from nasopharyngeal (LODGE OFFICER) specimens . It is used under Emergency [...] clinically indicated.Tesing performed by:[facility] [address] [place] [id number], Trae Cheung MD, PhD [facility] PasoUrine color arntnfqalgutd1709-55-35 14:55:00* Test Item Value Reference Range Interpretation Comments Urine Color (test code = 5778-6) STRAW YELLOW [facility] PasoUrine tofmmcz6397-14-10 14:55:00* Test Item Value Reference Range Interpretation Comments Urine Clarity (test code = 07918-5) SL CLOUDY CLEAR [facility] Centerpecific gravity of Urine by Test strip 2020-05-28 14:55:00* Test Item Value Reference Range Interpretation Comments Urine Specific [place] (test code = 5811-5) 1.025 1.010-1.02 5 [facility] PasoUrine pH measurement by automated test bqevz9645-47-08 14:55:00* Test Item Value Reference Range Interpretation Comments Urine pH (test code = 98341-0) 6 5-7 [facility] PasoUrine leukocyte esterase detection by lplyrzeg2128-40-45 14:55:00* Test Item Value Reference Range Interpretation Comments Urine Leukocyte Esterase (test code = 5799-2) NEGATIVE NEGATIVE [facility] PasoUrine nitrite hgnphkbzq3189-46-16 14:55:00* Test Item Value Reference Range Interpretation Comments Urine Nitrite (test code = 77913-7) NEGATIVE NEGATIVE [facility] PasoUrine protein measurement by test strip (mass/volume)2020-05-28 14:55:00* Test Item Value Reference Range Interpretation Comments Urine Protein (test code = 5804-0) 1+ NEGATIVE [facility] PasoUrine glucose xvntgpbnu6782-53-94 14:55:00* Test Item Value Reference Range Interpretation Comments Urine Glucose (UA) (test code = 2349-9) NEGATIVE NEGATIVE [facility] PasoUrine ketones detection by automated test eyjxk2706-71-70 14:55:00* Test Item Value Reference Range Interpretation Comments Urine Ketones (test code = 03645-4) NEGATIVE NEGATIVE [facility] PasoUrine urobilinogen measurement by test strip (mass/volume)2020-05-28 14:55:00* Test Item Value Reference Range Interpretation Comments Urine Urobilinogen (test code = 45622-4) 1 0.2-1 [facility] PasoUrine total bilirubin measurement (mass/volume)2020-05-28 14:55:00* Test Item Value Reference Range Interpretation Comments Urine Bilirubin (test code = 1978-6) NEGATIVE NEGATIVE [facility] PasoUrine erythrocytes kccuhssxi7258-20-16 14:55:00* Test Item Value Reference Range Interpretation Comments Urine Blood (test code = 48193-0) NEGATIVE NEGATIVE [facility] PasoAutomated urine sediment leukocyte count by microscopy (number/high power field)2020-05-28 14:55:00* Test Item Value Reference Range Interpretation Comments Urine WBC (test code = 5821-4) NONE 0-5 [facility] PasoErythrocytes detection in urine sediment by light zlqbbdaner1232-82-75 14:55:00* Test Item Value Reference Range Interpretation Comments Urine RBC (test code = 84696-6) NONE 0-5 [facility] PasoBacteria detection in urine sediment by light yliqolofzs7101-81-84 14:55:00* Test Item Value Reference Range Interpretation Comments Urine Bacteria (test code = 55293-8) RARE NONE [facility] PasoEpithelial cells detection in urine sediment by light hbrygbmwyg0752-93-16 14:55:00* Test Item Value Reference Range Interpretation Comments Urine Epithelial Cells (test code = 89365-4) NONE NONE [facility] PasoFluoroscopic procedure less than one hour pgsyltjx5164-39-12 14:36:00* Test Item Value Reference Range Interpretation Comments Lactic Acid Level (test code = Lactic Acid Level) 0.7 0.5- 2.0 [facility] PasoCHEST SINGLE (PORTABLE)2020-05-28 11:41:00 [place] [address] Patient Name: JOSEPH LONGO MR #: [id number] : 1950 Age/Sex: 70/M Req #: [id number] Adm Physician: Ordered by: MAGDY MUÑOZ DO Report #: [id number] Location: ER Room/Bed: Procedure: [id number] DX/CHEST SI NGLE (PORTABLE) Exam Date: 05/28/20 Exam Time: 1110 REPORT STATUS: Signed EXAMINATIO N: CHEST SINGLE (PORTABLE) INDICATION: Chest pain COMPARISON: [facility] radiograph 04/01/2020 FINDINGS: LINES/TUBES:None LUNGS:The right lung [...] 11:42 AM Dictated By: MOON SCHWARTZ MD 114 Transcribed By: RADHA on 05/28/20 114 COPY TO: MAGDY MUÑOZ DO Blood wdalgnz1739-18-31 11:18:00* Test Item Value Reference Range Interpretation Comments Blood Culture (test code = 36152019) NO GROWTH AFTER 72 HOURS [facility]- PET[facility]CT [facility]UMOR SK [facility]RLLFY[facility]27-[facility]-80 15:37:00 FAX: Chapin Hernandez [phone] [place]: St: REG FAX: Adwoa Martínez [phone] Name: JOSEPH LOGNO [facility] : 1950 Age/S: 70/M [address] [facility] Unit #: [id number] Loc: [place] [address] Phys: Adwoa Arnold MD Acct: [id number] Dis Date: Status: REG CLI PHONE #: [phone] Exam Date: 04/26/2020 1045 FAX #: [phone] Reason: CELL LUNG CA EXAMS: CPT CODE: [id number] PET/CT TUMOR SK MIDTH 59043 HISTORY: Staging lung cancer. COMPARISON: None available. Location: [facility]. PET/CT SCAN: 10.6 mCi of FDG administered. [...] Signed Repo rt (CONTINUED) FAX: Chapin Hernandez [place]: B St: REG FAX: Adwoa Martínez [phone] ------ Name: QINGJOSEPH [facility] : [birth year] Age/S: 70/M [address] [facility] Unit #: [id number] Loc: [place] [address] Phys: Patricia Arnold MD Acct: [id number] Dis Date: Status: REG CLI PHONE #: Exam Date: 04/26/2020 1045 FAX #: [phone] Reason: CELL LUNG CA EXAMS: CPT CODE: [id number] PET/CT TUMOR SK BS MIDTH 72401 <Continued> CC: Dr. Chapin Lee; Adwoa Arnold MD Technologist: AYUSH HOLBROOK Trndcrd Date/Time/By: 04/26/2020 (0825) : By: [email or web address] Orig Print D/T: S: 04/26/2020 (1703) PAGE 2 Signed Report - MRI BRAIN W WO DBGT0081-12-32 09:44:00 FAX: Chapin Hernandez [phone] [place]: B St: REG FAX: Adwoa Martínez [phone] Name: JOSEPH LONGO [facility] : 1950 Age/S: 70/M [address] [facility] Unit #: [id number] Loc: [place] [address] Phys: Adwoa Arnold MD Acct: [id number] Dis Date: Status: REG CLI PHONE #: [phone] Exam Date: 04/26/2020 0936 FAX #: [phone] Reason: CELL LUNG CA EXAMS: CPT CODE: [id number] MRI BRAIN W WO CONT 03496 HISTORY: Staging lung cancer. COMPARISON: None milo [...] Arnold MD Technologist: CANDY RICHARDSON,RT - MRI Trndcrd Date/Time/By: 04/26/2020 (0981) : By: [email or web address] Orig Print D/T: S: 04/26/2020 (6288) PAGE 1 Signed Report CREATININE W ESTIMATED TAV2408-97-89 08:45:00* Test Item Value Reference Range Interpretation Comments BEDSIDE CREATININE (test code = CREATBED) mg/dL 0.7-1.3 L GLOMERULAR FILTRATION RATE POC (test code = GFRBED) 125 >6 0 H CREATININE W ESTIMATED IZO8340-79-72 08:45:00* Test Item Value Reference Range Interpretation Comments BEDSIDE CREATININE (test code = CREATBED) 0.63 mg/dL 0.7-1.3 L GLOMERULAR FILTRATION RATE POC (test code = GFRBED) > 60 >6 0 H Previously reported result: 125 Edited by: TELLO on 04/26/20:83065104/26/20 0845: GFRBED previously reported as: 125 H CHEST SINGLE (PORTABLE)2020-04-01 14:27:00 [place] [address] Patient Name: JOSEPH LONGO MR #: [id number] : 1950 Age/Sex: 69/M Req #: [id number] Adm Physician: Ordered by: MOON SCHWARTZ MD Report #: [id number] Location: CT Room/Bed: Procedure: [id number] DX/CHEST SINGLE ( PORTABLE) Exam Date: 04/01/20 [...] 142 Trans cribed By: RADHA on 04/01/20 142 COPY TO: MOON SCHWARTZ MD BIOPSY ZRXP0032-02-40 13:34:00 [place] [address] Patient Name: JOSEPH LONGO MR #: [id number] : 1950 Age/Sex: 69/M Req #: [id number] Adm Physician: Ordered by: SHERON KWON MD Report #: [id number] Location: CT Room/Bed: Procedure: IR/BIOPSY KVNG NG [...] needle: 19 gauge Core needle biopsy device: Vouch Core needle size: 20 gauge Nu mber [...] MD on 04/01/2020 1:37 PM Dictated By: MONO SCHWARTZ MD 133 COPY TO: NICANOR KWON MD, [facility] CHEST SINGLE (PORTABLE)2020-04-01 12:57:00 [place] [address] Patient Name: JOSEPH LONGO MR #: [id number] : 1950 Age/Sex: 69/M Req #: [id number] Adm Physician: Ordered by: MOON SCHWARTZ MD Report #: [id number] Location: CT Room/Bed: Procedure: [id number] DX/CHEST SINGLE ( PORTABLE) Exam Date: 04/01/20 [...] MOON SCHWARTZ MD CHEST SINGLE (PORTABLE)2020-04-01 12:42:00 [place] [address] Patient Name: JOSEPH LONGO MR #: [id number] : 1950 Age/Sex: 69/M Req #: [id number] Adm Physician: Ordered by: MOON SCHWARTZ MD Report #: [id number] Location: CT Room/Bed: Procedure: [id number] DX/CHEST SINGLE ( PORTABLE) Exam Date: 04/01/20 [...] Count (test code = 6690-2) 11.37 4.8-10.8 [facility] erythrocytes automated count (number/volume)2020-03-24 05:50:00* Test Item Value Reference Range Interpretation Comments Red Blood Count (test code = 789-8) 3.75 4.3-5.7 [facility] PasoBlood hemoglobin measurement (moles/volume)2020-03-24 05:50:00* Test Item Value Reference Range Interpretation Comments Hemoglobin (test code = 33764-8) 12.7 14.0-18.0 [facility] PasoAutomated blood hematocrit (volume fraction)2020-03-24 05:50:00* Test Item Value Reference Range Interpretation Comments Hematocrit (test code = 4544-3) 35.4 38.2-49.6 [facility] PasoAutomated erythrocyte mean corpuscular btpofp0341-42-94 05:50:00* Test Item Value Reference Range Interpretation Comments Mean Corpuscular Volume (test code = 787-2) 94.4 81-99 [facility] PasoAutomated erythrocyte mean corpuscular hemoglobin (mass per erythrocyte)2020-03-24 05:50:00* Test Item Value Reference Range Interpretation Comments Mean Corpuscular Hemoglobin (test code = 785-6) 33.9 28-32 [facility] PasoAutomated erythrocyte mean corpuscular hemoglobin concentration measurement (mass/volume)2020-03-24 05:50:00* Test Item Value Reference Range Interpretation Comments Mean Corpuscular Hemoglobin Concent (test code = 786-4) 35.9 31-35 [facility] PasoRDW ThbSe-Uzm7573-89-03 05:50:00* Test Item Value Reference Range Interpretation Comments Red Cell Distribution Width (test code = 67443-7) 13.9 11.7 -14.4 [facility] PasoAutomated blood platelet count (count/volume)2020-03-24 05:50:00* Test Item Value Reference Range Interpretation Comments Platelet Count (test code = 777-3) 333 140-360 [facility] PasoAutomated blood segmented neutrophil count as percentage of total yrrmkqahss0211-47-84 05:50:00* Test Item Value Reference Range Interpretation Comments Neutrophils (%) (Auto) (test code = 11100-7) 53.2 38.7-80.0 [facility] PasoAutomated blood lymphocyte count as percentage ot total vdbfrdagls5611-53-27 05:50:00* Test Item Value Reference Range Interpretation Comments Lymphocytes (%) (Auto) (test code = 736-9) 33.9 18.0-39.1 [facility] PasoAutomated blood monocyte count as percentage of total ltdyrbrkdp4179-64-73 05:50:00* Test Item Value Reference Range Interpretation Comments Monocytes (%) (Auto) (test code = 5905-5) 10.0 4.4-11.3 [facility] PasoAutomated blood eosinophil count as percentage of total qnorzcrzvj9936-65-69 05:50:00* Test Item Value Reference Range Interpretation Comments Eosinophils (%) (Auto) (test code = 713-8) 2.2 0.0-6.0 [facility] PasoAutomated blood basophil count as percentage of total tcrgssiovl8130-31-49 05:50:00* Test Item Value Reference Range Interpretation Comments Basophils (%) (Auto) (test code = 706-2) 0.4 0.0-1.0 [facility] PasoFluoroscopic procedure less than one hour ppskcbcw8750-97-82 05:50:00* Test Item Value Reference Range Interpretation Comments IM GRANULOCYTES % (test code = IM GRANULOCYTES %) 0.3 0.0- 1.0 [facility] PasoAutomated blood neutrophil count 2020-03-24 05:50:00* Test Item Value Reference Range Interpretation Comments Neutrophils # (Auto) (test code = 751-8) 6.0 2.1-6.9 [facility] PasoBlnorthfield city hospital lymphocytes count (number/volume) 2020-03-24 05:50:00* Test Item Value Reference Range Interpretation Comments Lymphocytes # (Auto) (test code = 02241-9) 3.9 1.0-3.2 [facility] PasoBlnorthfield city hospital monocytes automated count (number/volume)2020-03-24 05:50:00* Test Item Value Reference Range Interpretation Comments Monocytes # (Auto) (test code = 742-7) 1.1 0.2-0.8 [facility] PasoAutomated blood eosinophil count 2020-03-24 05:50:00* Test Item Value Reference Range Interpretation Comments Eosinophils # (Auto) (test code = 711-2) 0.3 0.0-0.4 [facility] PasoAutomated blood basophil count (count/volume)2020-03-24 05:50:00* Test Item Value Reference Range Interpretation Comments Basophils # (Auto) (test code = 704-7) 0.1 0.0-0.1 [facility] PasoFluoroscopic procedure less than one hour xqaiogyp1920-65-56 05:50:00* Test Item Value Reference Range Interpretation Comments Absolute Immature Granulocyte (auto (hiral t code = Absolute Immature Granulocyte (auto) 0.03 0-0.1 [facility] PasoProthrombin time (PT) in platelet poor plasma by coagulation esrhu0802-19-46 05:50:00* Test Item Value Reference Range Interpretation Comments Prothrombin Time (test code = 5902-2) 12.5 11.9-14.5 [facility] PasoINR in Platelet poor plasma by Coagulation cvpgp2252-99-00 05:50:00* Test Item Value Reference Range Interpretation Comments Prothromb Time International Ratio (test code = 6301-6) 0.88 Oral Anticoagulant Therapy INR Values:1. Low Intensity Therapy 1.5 - 2.02 . Moderate Intensity Therapy 2.0 - 3.03. High Intensity Therapy(1) 2.5 - 3. 54. High Intensity Therapy(2) 3.0 - 4.05. Panic Value INR > 5.0 [facility]ererum or plasma sodium measurement (moles/volume)2020-03-24 05:50:00* Test Item Value Reference Range Interpretation Comments Sodium Level (test code = 2951-2) 141 136-145 [facility] Centererum or plasma potassium measurement (moles/volume)2020-03-24 05:50:00* Test Item Value Reference Range Interpretation Comments Potassium Level (test code = 2823-3) 4.6 3.5-5.1 [facility] Centererum or plasma chloride measurement (moles/volume)2020-03-24 05:50:00* Test Item Value Reference Range Interpretation Comments Chloride Level (test code = 2075-0) 106 98-107 [facility] Centererum or plasma carbon dioxide, total measurement (moles/volume)2020-03-24 05:50:00* Test Item Value Reference Range Interpretation Comments Carbon Dioxide Level (test code = 2028-9) 26 22-29 [facility] Centererum or plasma anion pmh2461-18-83 05:50:00* Test Item Value Reference Range Interpretation Comments Anion Gap (test code = 12750-2) 13.6 8-16 [facility] Centererum or plasma urea nitrogen measurement (mass/volume)2020-03-24 05:50:00* Test Item Value Reference Range Interpretation Comments Blood Urea Nitrogen (test code = 3094-0) 13 - [facility] Centererum or plasma creatinine measurement (mass/volume)2020-03-24 05:50:00* Test Item Value Reference Range Interpretation Comments Creatinine (test code = 2160-0) 0.86 0.72-1.25 [facility] Centererum or plasma urea nitrogen/creatinine mass nftcj5213-06-77 05:50:00* Test Item Value Reference Range Interpretation Comments BUN/Creatinine Ratio (test code = 3097-3) 15 -25 [facility] PasoEstimated glomerular filtration rate (GFR) xuhornpeaiwpc4001-62-11 05:50:00* Test Item Value Reference Range Interpretation Comments Estimat Glomerular Filtration Rate (test code = 675562660) > 60 >60 Ranges were taken from the National Kidney Disease Education Program and the [facility] Kid[facility] Foundation literature.Reference ranges:60 or greater: Ulwirl91-88 ( for 3 consecutive months): Chronic kidney disease 15 or less: Kidney failureUniversity Medical Center of El PasoGlucose agzazmciedx1080-06-43 05:50:00* Test Item Value Reference Range Interpretation Comments Glucose Level (test code = IRP9916) 93 74-118 [facility] Centererum or plasma calcium measurement (mass/volume)2020-03-24 05:50:00* Test Item Value Reference Range Interpretation Comments Calcium Level (test code = 45720-8) 8.9 8.4-10.2 [facility] Centererum or plasma magnesium measurement (mass/volume)2020-03-24 05:50:00* Test Item Value Reference Range Interpretation Comments Magnesium Level (test code = 94631-2) 1.9 1.3-2.1 [facility] Centererum or plasma total bilirubin measurement (mass/volume)2020-03-24 05:50:00* Test Item Value Reference Range Interpretation Comments Total Bilirubin (test code = 1975-2) 0.5 0.2-1.2 [facility] PasoFluoroscopic procedure less than one hour hsiyzaap7130-73-48 05:50:00* Test Item Value Reference Range Interpretation Comments Aspartate Amino Transf (AST/SGOT) (test code = Aspartate Amino Transf (AST/SGOT)) 14 5-34 [facility] Centererum or plasma alanine aminotransferase measurement (enzymatic activity/volume)2020-03-24 05:50:00* Test Item Value Reference Range Interpretation Comments Alanine Aminotransferase (ALT/SGPT) (test code = 1742-6) 13 0-55 [facility] Centererum or plasma protein measurement (mass/volume)2020-03-24 05:50:00* Test Item Value Reference Range Interpretation Comments Total Protein (test code = 2885-2) 6.6 6.5-8.1 [facility] Centererum or plasma albumin measurement (mass/volume)2020-03-24 05:50:00* Test Item Value Reference Range Interpretation Comments Albumin (test code = 1751-7) 3.4 3.5-5.0 [facility] PasoPlasma globulin measurement (mass/volume) 2020-03-24 05:50:00* Test Item Value Reference Range Interpretation Comments Globulin (test code = 56609-8) 3.2 2.3-3.5 [facility]ererum or plasma albumin/globulin mass yprhr9412-99-77 05:50:00* Test Item Value Reference Range Interpretation Comments Albumin/Globulin Ratio (test code = 1759-0) 1.1 0.8-2.0 [facility]ererum or plasma alkaline phosphatase measurement (enzymatic activity/volume)2020-03-24 05:50:00* Test Item Value Reference Range Interpretation Comments Alkaline Phosphatase (test code = 6768-6) 74 40-150 [facility] PasoProthrombin time (PT) in platelet poor plasma by coagulation ptksf5690-93-81 05:50:00* Test Item Value Reference Range Interpretation Comments Prothrombin Time (test code = 5902-2) 12.5 11.9-14.5 [facility] PasoINR in Platelet poor plasma by Coagulation njenr5375-75-05 05:50:00* Test Item Value Reference Range Interpretation Comments Prothromb Time International Ratio (test code = 6301-6) 0.88 Oral Anticoagulant Therapy INR Values:1. Low Intensity Therapy 1.5 - 2.02 . Moderate Intensity Therapy 2.0 - 3.03. High Intensity Therapy(1) 2.5 - 3. 54. High Intensity Therapy(2) 3.0 - 4.05. Panic Value INR > 5.0 [facility] PasoFluoroscopic procedure less than one hour norlvhco4428-05-25 05:20:00* Test Item Value Reference Range Interpretation Comments Hemoglobin A1c Percent (test code = Hemoglobin A1c Percent) 4.6 4.0-7.0 [facility]ererum or plasma triglyceride measurement (mass/volume)2020-03-23 05:20:00* Test Item Value Reference Range Interpretation Comments Triglycerides Level (test code = 2571-8) 135 0-149 [facility]ererum or plasma cholesterol measurement (mass/volume)2020-03-23 05:20:00* Test Item Value Reference Range Interpretation Comments Cholesterol Level (test code = 2093-3) 69 0-199 Less than 200 mg/dL Low Ljvy436 - 239 mg/dL Borderline Ceja185 m g/dl and greater High Risk [facility]ererum or plasma cholesterol in LDL measurement (mass/volume) 2020-03-23 05:20:00* Test Item Value Reference Range Interpretation Comments LDL Cholesterol (test code = 2089-1) 17 60-130 [facility]ererum or plasma cholesterol in HDL measurement (mass/volume)2020-03-23 05:20:00* Test Item Value Reference Range Interpretation Comments HDL Cholesterol (test code = 2085-9) 25 40-60 [facility]ererum or plasma total cholesterol/cholesterol in HDL mass wrjtu8020-82-96 05:20:00* Test Item Value Reference Range Interpretation Comments Cholesterol/HDL Ratio (test code = 9830-1) 2.8 3.9-4.7 [facility]ererum or plasma creatine kinase measurement (enzymatic activity/volume)2020-03-23 05:20:00* Test Item Value Reference Range Interpretation Comments Creatine Kinase (test code = 2157-6) 100 30-200 [facility]ererum or plasma creatine kinase MB measurement (mass/volume)2020-03-23 05:20:00* Test Item Value Reference Range Interpretation Comments Creatine Kinase MB (test code = 83200-3) 2.40 0-5.0 [facility] PasoTroponin I measurement by highly sensitive enzyme fnqlfbtsyhc6366-90-70 05:20:00* Test Item Value Reference Range Interpretation Comments Troponin I (test code = 44996-8) 0.003 0-0.300 [facility]ererum or plasma thyrotropin measurement by detection limit <= 0.005 miu/l (units/volume)2020-03-23 05:20:00* Test Item Value Reference Range Interpretation Comments Thyroid Stimulating Hormone (TSH) (test code = 87174-4) 1.127 0.350-4.940 [facility] Centererum or plasma carcinoembryonic antigen measurement (mass/volume)2020-03-23 05:20:00* Test Item Value Reference Range Interpretation Comments Carcinoembryonic Antigen (test code = 2039-6) 1.3 0.0-4.7 Nonsmokers <3.9 Smokers <5.6[employer] Electrochemiluminescence Immunoassay(ECLIA)Values obtained with different assay methods or kitscannot be used interchangeably. Results cannot beinterpreted as absolute evidence of the presence orabsence of malignant disease.Performed at: - [address] [id number] Director: Greyson Phoenix MD, Phone: [phone] Medical Center of El PasoFluoroscopic procedure less than one hour pqqcfqzy2252-88-34 05:20:00* Test Item Value Reference Range Interpretation Comments Hemoglobin A1c Percent (test code = Hemoglobin A1c Percent) 4.6 4.0-7.0 [facility]ererum or plasma triglyceride measurement (mass/volume)2020-03-23 05:20:00* Test Item Value Reference Range Interpretation Comments Triglycerides Level (test code = 2571-8) 135 0-149 [facility]ererum or plasma cholesterol measurement (mass/volume)2020-03-23 05:20:00* Test Item Value Reference Range Interpretation Comments Cholesterol Level (test code = 2093-3) 69 0-199 Less than 200 mg/dL Low Rsem692 - 239 mg/dL Borderline Pieq071 m g/dl and greater High Risk [facility]ererum or plasma cholesterol in LDL measurement (mass/volume) 2020-03-23 05:20:00* Test Item Value Reference Range Interpretation Comments LDL Cholesterol (test code = 2089-1) 17 60-130 [facility] Centererum or plasma cholesterol in HDL measurement (mass/volume)2020-03-23 05:20:00* Test Item Value Reference Range Interpretation Comments HDL Cholesterol (test code = 2085-9) 25 40-60 [facility]ererum or plasma total cholesterol/cholesterol in HDL mass uhgvy3691-86-56 05:20:00* Test Item Value Reference Range Interpretation Comments Cholesterol/HDL Ratio (test code = 9830-1) 2.8 3.9-4.7 [facility] Centererum or plasma thyrotropin measurement by detection limit <= 0.005 miu/l (units/volume)2020-03-23 05:20:00* Test Item Value Reference Range Interpretation Comments Thyroid Stimulating Hormone (TSH) (test code = 19709-2) 1.127 0.350-4.940 [facility] Centererum or plasma carcinoembryonic antigen measurement (mass/volume)2020-03-23 05:20:00* Test Item Value Reference Range Interpretation Comments Carcinoembryonic Antigen (test code = 2039-6) 1.3 0.0-4.7 Nonsmokers <3.9 Smokers <5.6[employer] Electrochemiluminescence Immunoassay(ECLIA)Values obtained with different assay methods or kitscannot be used interchangeably. Results cannot beinterpreted as absolute evidence of the presence orabsence of malignant disease.Performed at: [facility] [address] [id number] Director: Greyson Phoenix MD, Phone: [phone] Medical Center of El PasoFluoroscopic procedure less than one hour hxmoywnm0012-24-59 05:20:00* Test Item Value Reference Range Interpretation Comments Hemoglobin A1c Percent (test code = Hemoglobin A1c Percent) 4.6 4.0-7.0 [facility]ererum or plasma triglyceride measurement (mass/volume)2020-03-23 05:20:00* Test Item Value Reference Range Interpretation Comments Triglycerides Level (test code = 2571-8) 135 0-149 [facility] Centererum or plasma cholesterol measurement (mass/volume)2020-03-23 05:20:00* Test Item Value Reference Range Interpretation Comments Cholesterol Level (test code = 2093-3) 69 0-199 Less than 200 mg/dL Low Ngsw441 - 239 mg/dL Borderline Hjph852 m g/dl and greater High Risk [facility]ererum or plasma cholesterol in LDL measurement (mass/volume) 2020-03-23 05:20:00* Test Item Value Reference Range Interpretation Comments LDL Cholesterol (test code = 2089-1) 17 60-130 [facility] Centererum or plasma cholesterol in HDL measurement (mass/volume)2020-03-23 05:20:00* Test Item Value Reference Range Interpretation Comments HDL Cholesterol (test code = 2085-9) 25 40-60 [facility] Centererum or plasma total cholesterol/cholesterol in HDL mass krkaw2158-80-30 05:20:00* Test Item Value Reference Range Interpretation Comments Cholesterol/HDL Ratio (test code = 9830-1) 2.8 3.9-4.7 [facility] Centererum or plasma thyrotropin measurement by detection limit <= 0.005 miu/l (units/volume)2020-03-23 05:20:00* Test Item Value Reference Range Interpretation Comments Thyroid Stimulating Hormone (TSH) (test code = 79047-3) 1.127 0.350-4.940 [facility] Centererum or plasma carcinoembryonic antigen measurement (mass/volume)2020-03-23 05:20:00* Test Item Value Reference Range Interpretation Comments Carcinoembryonic Antigen (test code = 2039-6) 1.3 0.0-4.7 Nonsmokers <3.9 Smokers <5.6[employer] Electrochemiluminescence Immunoassay(ECLIA)Values obtained with different assay methods or kitscannot be used interchangeably. Results cannot beinterpreted as absolute evidence of the presence orabsence of malignant disease.Performed at: [facility] [address] [id number] Director: Greyson Phoenix MD, Phone: [phone] Medical Center of El PasoCT CHEST O6793-26-61 03:21:00 [facility] [address] [place] [address] Patient Name: JOSEPH LONGO MR #: [id number] : 1950 Age/Sex: 69/M Req #: [id number] Adm Physician: Ordered by: JUNIOR MARCUM rt #: [id number] Location: ER Room/Be d: Procedure: CT/CT CHEST W Exam Date: 03/22/20 Exam Time: 144 REPORT STATUS: Signed EXAM: CT Chest WITH [...] DO Fluoroscopic procedure less than one hour lqelojzy9621-75-05 02:58:00* Test Item Value Reference Range Interpretation [...] under 564(g) of the ACT.Testing performed by [facility] [place] [id number] Medical Center of El PasoFluoroscopic procedure less than one hour duration 2020-03-22 02:50:00* Test Item Value Reference Range Interpretation Comments Lactic Acid Level (test code = Lactic Acid Level) 1.2 0.5- 2.0 [facility] PasoBlood gjtcbuo1493-61-99 02:50:00* Test Item Value Reference Range Interpretation Comments Blood Culture (test code = 66710219) NO GROWTH AFTER 48 HOURS [facility] PasoCapillary blood glucose measurement by glucometer (mass/volume)2020-03-22 00:40:00* Test Item Value Reference Range Interpretation Comments Bedside Glucose (test code = 71133-9) 161 70-120 Meter ID: [id number] Medical Center of El PasoCapillary blood glucose measurement by glucometer (mass/volume)2020-03-22 00:40:00* Test Item Value Reference Range Interpretation Comments Bedside Glucose (test code = 79144-9) 161 70-120 Meter ID: [id number] Medical Center of El PasoCapillary blood glucose measurement by glucometer (mass/volume)2020-03-22 00:40:00* Test Item Value Reference Range Interpretation Comments Bedside Glucose (test code = 76051-7) 161 70-120 [address] ID: [id number] [facility] Hospitald-mCnc 2020-03-22 00:35:00* Test Item Value Reference Range Interpretation Comments B-Type Natriuretic Peptide (test code = 96923-2) 17.4 0-100 [facility] Centererum or plasma lipase measurement (enzymatic activity/volume)2020-03-22 00:35:00* Test Item Value Reference Range Interpretation Comments Lipase (test code = 3040-3) 61 8-[address] [facility]d-jGel0090-31-34 00:35:00* Test Item Value Reference Range Interpretation Comments B-Type Natriuretic Peptide (test code = 06709-9) 17.4 0-100 [facility] Centererum or plasma lipase measurement (enzymatic activity/volume)2020-03-22 00:35:00* Test Item Value Reference Range Interpretation Comments Lipase (test code = 3040-3) 61 8-78 [facility]-wMvv0864-33-45 00:35:00* Test Item Value Reference Range Interpretation Comments B-Type Natriuretic Peptide (test code = 21252-0) 17.4 0-100 [facility] Centererum or plasma lipase measurement (enzymatic activity/volume)2020-03-22 00:35:00* Test Item Value Reference Range Interpretation Comments Lipase (test code = 3040-3) 61 8-[address] [place], [place] [address]KUB)2019-06-02 10:49:00 [place] [address] Patient Name: JOSEPH LONGO MR #: [id number] : [birth year] Age/Sex: 69/M Req #: [id number] Adm Physician: Ordered by: GEEAT GHOTRA MD Report #: [id number] Location: [facility] Room/Bed: Procedure: DX/ABD OMEN-1VIEW (KUB) Exam [...] TO: GEETA GHOTRA MD CT CERVICAL SPINE TW8617-53-87 17:52:00 [place] [address] Patient Name: JOSEPH LONGO MR #: [id number] : 1950 Age/Sex: 68/M Req #: [id number] Adm Physician: Ordered by: GAURAV CAMARILLO MD Report #: [id number] Location: ER Room/Bed: Procedure: CT/CT CERVICAL SPINE WO Tod xam Date: [...] CAMARILLO MD CT BRAIN WO 2018-04-17 17:52:00 [place] [address] Patient Name: JOSEPH LONGO MR #: [id number] : 1950 Age/Sex: 68/M Req #: [id number] Adm Physician: Ordered by: GAURAV CAMARILLO MD Report #: [id number] Location: ER Room/Bed: Procedure: [id number] CT/CT BRAIN WO Exam Date: 04/17/18 Exam [...] GAURAV CAMARILLO MD CHEST SINGLE (PORTABLE)2018-04-17 17:45:00 [place] [address] Patient Name: JOSEPH LONGO MR #: [id number] : 1950 Age/Sex: 68/M Req #: [id number] Adm Physician: Ordered by: GAURAV CAMARILLO MD Report #: [id number] Location: ER Room/Bed: Procedure: DX/CHEST SINGLE (PORTABLE) Exam Date: 04/17/18 Exam Time: [address] ATUS: Signed PROCEDURE: A single [...] ROBERT VALLE MD on 04/17/181744 Transcribed By: [facility] E on 04/17/181744 COPY TO: GAURAV CAMARILLO MD SHOULDER LEFT HROGCWKV0740-91-36 17:42:00 [place] [address] Patient Name: JOSEPH LONGO MR #: [id number] : 1950 Age/Sex: 68/M Req #: [id number] Adm Physician: Ordered by: GAURAV CAMARILLO MD Report #: [id number] Location: ER Room/Bed: Procedure: DX/SHOULDER LEFT COMPLETE [...] Comments Creatine Kinase MB (test code = 88640-2) 4.20 0-5.0 [facility] PasoTroponin O5570-32-52 17:35:00* Test Item Value Reference Range Interpretation Comments Troponin I (test code = JHS3063) -0.001 0-0.300 [facility] Centerodium Jomzk3381-52-20 17:29:00* Test Item Value Reference Range Interpretation Comments Sodium Level (test code = 2951-2) 140 136-145 [facility] PasoPotassium Lmtfz4796-07-05 17:29:00* Test Item Value Reference Range Interpretation Comments Potassium Level (test code = 2823-3) 4.4 3.5-5.1 [facility] PasoChloride Fiqbv0966-04-36 17:29:00* Test Item Value Reference Range Interpretation Comments Chloride Level (test code = 2075-0) 107 98-107 [facility] PasoCarbon Dioxide Vsszb4603-95-46 17:29:00* Test Item Value Reference Range Interpretation Comments Carbon Dioxide Level (test code = 2028-9) 20 22-29 L [facility] PasoAnion Ssm6000-98-84 17:29:00* Test Item Value Reference Range Interpretation Comments Anion Gap (test code = 16988-7) 17.4 8-16 H [facility] PasoBlood Urea Etzdkutv5626-31-74 17:29:00* Test Item Value Reference Range Interpretation Comments Blood Urea Nitrogen (test code = 3094-0) 22 7-26 [facility] PasoCreatinine2018-06-27 17:29:00* Test Item Value Reference Range Interpretation Comments Creatinine (test code = 2160-0) 1.20 0.72-1.25 [facility] PasoBUN/Creatinine Ggjze4317-63-33 17:29:00* Test Item Value Reference Range Interpretation Comments BUN/Creatinine Ratio (test code = 3097-3) 18 6-25 [facility] El PasoEstimat Glomerular Filtration Rate 2018-04-17 17:29:00* Test Item Value Reference Range Interpretation Comments Estimat Glomerular Filtration Rate (test code = 20714-1) 60 >60 Ranges were taken from the National Kidney Disease Education Program and the [facility] Kid[facility] Foundation literature.Reference ranges:60 or greater: Arzxfr27-75 ( for 3 consecutive months): Chronic kidney disease 15 or less: Kidney failureUniversity Medical Center of El PasoGlucose Xdloq0174-60-08 17:29:00* Test Item Value Reference Range Interpretation Comments Glucose Level (test code = CET7450) 103 74-118 [facility] PasoCalcium Mnuto8968-02-59 17:29:00* Test Item Value Reference Range Interpretation Comments Calcium Level (test code = 91877-6) 9.8 8.4-10.2 [facility] PasoTotal Hhrvgrvqj5964-31-82 17:29:00* Test Item Value Reference Range Interpretation Comments Total Bilirubin (test code = 1975-2) 0.5 0.2-1.2 [facility] PasoAspartate Amino Transf (AST/SGOT) 2018-04-17 17:29:00* Test Item Value Reference Range Interpretation Comments Aspartate Amino Transf (AST/SGOT) (test code = Aspartate Amino Transf (AST/SGOT)) 55 5-34 H [facility] PasoAlanine Aminotransferase (ALT/SGPT) 2018-04-17 17:29:00* Test Item Value Reference Range Interpretation Comments Alanine Aminotransferase (ALT/SGPT) (test code = 1742-6) 68 0-55 H [facility] PasoTotal Xuqnxzi8419-21-41 17:29:00* Test Item Value Reference Range Interpretation Comments Total Protein (test code = 2885-2) 7.2 6.5-8.1 [facility] PasoAlbumin2018-06-27 17:29:00* Test Item Value Reference Range Interpretation Comments Albumin (test code = 1751-7) 4.0 3.5-5.0 [facility] PasoGlobulin2018-06-27 17:29:00* Test Item Value Reference Range Interpretation Comments Globulin (test code = 78143-0) 3.2 2.3-3.5 [facility] PasoAlbumin/Globulin Rvcgq0265-91-29 17:29:00 * Test Item Value Reference Range Interpretation Comments Albumin/Globulin Ratio (test code = 1759-0) 1.3 0.8-2.0 [facility] PasoAlkaline Luxigtthpgl4572-18-36 17:29:00* Test Item Value Reference Range Interpretation Comments Alkaline Phosphatase (test code = 6768-6) 54 40-150 [facility] PasoCreatine Ugincm8329-48-91 17:29:00* Test Item Value Reference Range Interpretation Comments Creatine Kinase (test code = 2157-6) 522 30-200 H [facility] PasoWhite Blood Euedd9036-66-30 16:57:00* Test Item Value Reference Range Interpretation Comments White Blood Count (test code = 6690-2) 9.73 4.8-10.8 [facility] PasoRed Blood Wfnup9950-85-89 16:57:00* Test Item Value Reference Range Interpretation Comments Red Blood Count (test code = 789-8) 4.06 4.3-5.7 L [facility] PasoHemoglobin2018-06-27 16:57:00* Test Item Value Reference Range Interpretation Comments Hemoglobin (test code = 73430-8) 13.6 14.0-18.0 L [facility] PasoHematocrit2018-06-27 16:57:00* Test Item Value Reference Range Interpretation Comments Hematocrit (test code = 4544-3) 37.3 38.2-49.6 L [facility] PasoMean Corpuscular Qmhspb4106-82-02 16:57:00* Test Item Value Reference Range Interpretation Comments Mean Corpuscular Volume (test code = 787-2) 91.9 81-99 [facility] El PasoMean Corpuscular [address]y5405-21-64 16:57:00* Test Item Value Reference Range Interpretation Comments Mean Corpuscular Hemoglobin (test code = 785-6) 33.5 28-32 H [facility] of El PasoMean Corpuscular Hemoglobin Concent 2018-04-17 16:57:00* Test Item Value Reference Range Interpretation Comments Mean Corpuscular Hemoglobin Concent (test code = 786-4) 36.5 31-35 H [facility] PasoRed Cell Distribution Zstmr4400-10-70 16:57:00* Test Item Value Reference Range Interpretation Comments Red Cell Distribution Width (test code = 47520-1) 13.1 11.7 -14.4 [facility] PasoPlatelet Otcsq4813-07-27 16:57:00* Test Item Value Reference Range Interpretation Comments Platelet Count (test code = 777-3) 335 140-360 [facility] PasoNeutrophils (%) (Auto)2018-04-17 16:57:00 * Test Item Value Reference Range Interpretation Comments Neutrophils (%) (Auto) (test code = 93636-3) 48.9 38.7-80.0 [facility] El PasoLymphocytes (%) (Auto)2018-04-17 16:57:00 * Test Item Value Reference Range Interpretation Comments Lymphocytes (%) (Auto) (test code = 736-9) 40.8 18.0-39.1 H [facility] PasoMonocytes (%) (Auto)2018-04-17 16:57:00* Test Item Value Reference Range Interpretation Comments Monocytes (%) (Auto) (test code = 5905-5) 7.5 4.4-11.3 [facility] PasoEosinophils (%) (Auto)2018-04-17 16:57:00 * Test Item Value Reference Range Interpretation Comments Eosinophils (%) (Auto) (test code = 713-8) 2.0 0.0-6.0 [facility] PasoBasophils (%) (Auto)2018-04-17 16:57:00* Test Item Value Reference Range Interpretation Comments Basophils (%) (Auto) (test code = 706-2) 0.4 0.0-1.0 [facility] El PasoIM GRANULOCYTES %2018-04-17 16:57:00* Test Item Value Reference Range Interpretation Comments IM GRANULOCYTES % (test code = IM GRANULOCYTES %) 0.4 0.0- 1.0 [facility] PasoNeutrophils # (Auto)2018-04-17 16:57:00* Test Item Value Reference Range Interpretation Comments Neutrophils # (Auto) (test code = 751-8) 4.8 2.1-6.9 [facility] PasoLymphocytes # (Auto)2018-04-17 16:57:00* Test Item Value Reference Range Interpretation Comments Lymphocytes # (Auto) (test code = 98880-5) 4.0 1.0-3.2 H [facility] PasoMonocytes # (Auto)2018-04-17 16:57:00* Test Item Value Reference Range Interpretation Comments Monocytes # (Auto) (test code = 742-7) 0.7 0.2-0.8 [facility] PasoEosinophils # (Auto)2018-04-17 16:57:00* Test Item Value Reference Range Interpretation Comments Eosinophils # (Auto) (test code = 711-2) 0.2 0.0-0.4 [facility] PasoBasophils # (Auto)2018-04-17 16:57:00* Test Item Value Reference Range Interpretation Comments Basophils # (Auto) (test code = 704-7) 0.0 0.0-0.1 [facility] PasoAbsolute Immature Granulocyte (auto 2018-04-17 16:57:00* Test Item Value Reference Range Interpretation Comments Absolute Immature Granulocyte (auto (hiral t code = Absolute Immature Granulocyte (auto) 0.04 0-0.1 [facility] PasoELECTROLYTES2018-05-23 09:49:009.7 [facility] LcwqgvmXXWMIEJZQNDQ4321-61-99 09:49:0053Memorial HermannELECTROLYTES 2018-03-13 09:49:82086Zjyvouvk ZjrpsssIOMHRHWLHKAF6265-98-13 09:49:0024[facility] IojpnccIBHUTVJIJTGN9751-49-51 09:49:003.7[facility] WumwxnnDGJCWKVXURJM8002-37-99 09:49:34858Wrppbaug IriyckiTDHAXVOLUGCV5987-36-27 09:49:007.8[facility] OONBLXZTSBJB5506-18-77 09:49:76446Jxsisfaa OynydhmHRYSFXMKHPWC1919-86-53 09:49:0016[facility] YlphzldBFZNHHLZJDGH7612-01-85 09:49:001.07[facility] LEJGYGZEMC7285-22-96 09:49:47541Alvcahvl CizbeleVMPUAEUIUH0302-13-89 09:49:00 13.1[facility] VjojcksLURJEODNOG0470-69-76 09:49:007.8[facility] HermannHEMATOLOGY 2018-03-13 09:49:0036.0[facility] YlmtlxwAFQMADEKWK0507-20-48 09:49:0095.3[facility] YglruwaLUCZCEADGC7590-65-54 09:49:00* Test Item Value Reference Range Interpretation Comments MCH (test code = MCH) 34.3 pg 27.0-31.0 [facility] ZuhrjqsTZNHSKMGRZ5923-24-39 09:49:0011.4[facility] HermannHEMATOLOGY 2018-03-13 09:49:0013.3[facility] VvzkiqnLRBWBSLRNU3796-68-12 09:49:0036.9[facility] IhtkfaaIXOMLZJSAX2509-44-06 09:49:003.87[facility] CnthckrJQWDZVKRZR7536-28-99 09:49:00* Test Item Value Reference Range Interpretation Comments PTT (test code = PTT) 30.7 s 22.9-35.8 [facility] HospitalIejudeiGNGKYWOIYK6938-49-40 09:49:00* Test Item Value Reference Range Interpretation Comments PT (test code = PT) 12.8 s 12.0-14.7 [facility] HospitalXoyjoenIFZUDCTUNT3016-75-22 09:49:00* Test Item Value Reference Range Interpretation Comments INR (test code = INR) 0.96 1 0.85-1.17 [facility] HospitalCfwmgcuAQRYEFJLYN8273-67-92 19:05:28* Test Item Value Reference Range Interpretation Comments PTT (test code = PTT) 164.1 s 22.9-35.8 [facility] HermannCHEM XMUOV3664-12-06 12:06:0062Memorial HermannCHEM PANEL 2018-03-12 12:06:006.4[facility]annCHEM UTXCC3351-58-20 12:06:0011.0[facility]annCHEM XJYOZ3758-55-59 12:06:00* Test Item Value Reference Range Interpretation Comments B/C Ratio (test code = B/C Ratio) 17 1 6-25 [facility]annCHE[facility] CPQNE8499-41-52 12:06:008.1[facility]annCHEM PANEL 2018-03-12 12:06:000.95[facility]annCHEM JQXUG8698-09-49 12:06:68347Nhlxmoms HermannCHEM SBGJY4154-77-68 12:06:004.0[facility]annCHEM UUEBH2945-15-37 12:06:95724Takvzpdi HermannCHEM HEUIH4423-77-32 12:06:0026[facility]annCHEM JEERN2700-97-39 12:06:0016[facility]annCHEM SOISB2059-92-45 12:06:31894 [facility]annCHE[facility] EBJYO4604-65-58 12:06:000.7[facility]annCHEM PANEL 2018-03-12 12:06:0054[facility]annCHEM GMOYP5884-98-90 12:06:0031[facility]annCHEM SORHM8937-15-78 12:06:003.3[facility]annCHEM HRAGH7906-69-65 12:06:003.1[facility]annCHEM KNBNC3984-71-64 12:06:00* Test Item Value Reference Range Interpretation Comments A/G Ratio (test code = A/G Ratio) 1.1 1 0.7-1.6 [facility]annCHEM PFMMP8732-27-75 12:06:0049[facility]annHEMATOLOGY 2018-03-12 12:06:000.5[facility] TfmhufsEYPNUXBIFW2557-91-27 12:06:004.5[facility] KsddoqyWMIFRUECJD6693-98-25 12:06:006.2[facility] TipcgbxFXIACOXHZG3223-67-57 12:06:008.5[facility] IdtduaoWOJWDZNBHF7147-32-96 12:06:001.5[facility] IRTMUSYJQJ3072-99-08 12:06:0037.5[facility] WbwatxfCYLIRHJZQW6500-44-40 12:06:00 52.0[facility] NznwvvtWAOSPYRTFP4914-59-81 12:06:000.2[facility]annHEMATOLOGY 2018-03-12 12:06:001.0[facility] QsnyffoTXBSRRLEXS8572-31-66 12:06:000.1[facility] FqazayjBGAKQTPGWL7398-43-36 12:06:00* Test Item Value Reference Range Interpretation Comments INR (test code = INR) 1.13 1 0.85-1.17 [facility] RsotzjzUYSSMTRZYY6066-94-02 12:06:00* Test Item Value Reference Range Interpretation Comments PT (test code = PT) 14.5 s 12.0-14.7 [facility] QpqfcjvEOMHHHLYXM6696-85-43 12:06:00* Test Item Value Reference Range Interpretation Comments PTT (test code = PTT) 47.1 s 22.9-35.8 [facility]LurkdokRRIBZBKUON8986-55-36 12:06:007.8[facility]annHEMATOLOGY 2018-03-12 12:06:94715Blehxdsq SjydieoCIUYSPJDJZ9768-79-56 12:06:0094.2[facility] ZyptkcoSSMJYSYNBV2796-98-95 12:06:00* Test Item Value Reference Range Interpretation Comments MCH (test code = MCH) 34.5 pg 27.0-31.0 [facility] UjzorqqKMYZYUFRTF5677-74-89 12:06:0013.3[facility] HermannHEMATOLOGY 2018-03-12 12:06:0036.7[facility] VzqzyrzVRQWQUYIZD1312-39-63 12:06:0038.8[facility] BhyfdlbPHRACXWHVG7704-49-14 12:06:004.12[facility] UgrdorbWVVXKBLVDX4881-96-94 12:06:0014.2[facility] BbevmvtNUKIBQUKTD7000-82-62 12:06:0012.0[facility] ABBJIBURPT4437-32-84 05:20:00* Test Item Value Reference Range Interpretation Comments INR (test code = INR) 1.09 1 0.85-1.17 [facility] QxsungcGTQTGMCNYU4201-58-34 05:20:00* Test Item Value Reference Range Interpretation Comments PT (test code = PT) 14.1 s 12.0-14.7 [facility] TmurvmdVLMZNRFNUI3097-03-05 01:24:000.1[facility]annHEMATOLOGY 2018-03-12 01:24:005.8[facility] NynimalVDZGLOEKDH6416-49-80 01:24:000.3[facility] TnvwzkvHCPXOHRUKJ8905-78-63 01:24:002.4[facility] ScifvdiUDQFPPKLLE3693-21-94 01:24:000.9[facility] LartiukPOBQMCEMQH0845-61-94 01:24:004.9[facility] KWOPMJPQGN6191-05-45 01:24:009.3[facility] VjphtypPKYGGFKXXM0819-42-61 01:24:001.1 [facility] ConizneOYYEDQTSRB6407-37-91 01:24:0039.9[facility]annHEMATOLOGY 2018-03-12 01:24:0047.5[facility] DkhfoygFJJUHXWFBP7608-45-69 01:24:0013.4[facility] ZczdxesCSWLXYWJLW6203-07-96 01:24:45479Iyygpixn GydpfqvHRGUWOOIQX6993-54-36 01:24:007.8[facility] EooaljmYRBKCAOJXS7912-71-90 01:24:0014.9[facility] UXUIIWQHAW4162-49-84 01:24:00* Test Item Value Reference Range Interpretation Comments MCH (test code = MCH) 34.2 pg 27.0-31.0 [facility] QtkkzkhJBLVNKTFJL6425-68-10 01:24:0035.7[facility]annHEMATOLOGY 2018-03-12 01:24:004.35[facility] HdvdyvnQSITEEQBFM3880-22-74 01:24:0096.0[facility] LzsidcgKUQRIQUVWR1252-49-77 01:24:0012.2[facility] PmvfzleWZSPVOSJFP4436-49-72 01:24:0041.8[facility]annCHEM TEHZI5739-81-06 17:39:0058[facility]annCHEM VGCTY0845-30-79 17:39:0013[facility]annCHEM IPFMI0275-41-23 17:39:0087 [facility]annCHE[facility] RIFJH1671-65-36 17:39:0060[facility]annCHEM PANEL 2018-03-11 17:39:001.00[facility]annCHEM SSQQF1148-49-96 17:39:32756Avhfquhs HermannCHEM GIPSF2170-57-71 17:39:48979Pruaheol HermannCHEM WJIBT0165-34-05 17:39:0024[facility]annCHEM IIIET7098-93-18 17:39:007.0[facility]annCHEM LMJCM2051-29-14 17:39:008.9[facility]annCHEM MAWBJ3420-42-97 17:39:004.6 [facility]annCHE[facility] DCRJX6398-67-29 17:39:0028[facility]annCHEM PANEL 2018-03-11 17:39:0051[facility]annCHEM BJAVS3897-33-75 17:39:003.9[facility]annCHEM LZYAC8938-43-77 17:39:000.3[facility]annCHEM AKPYQ2771-02-83 17:39:00* Test Item Value Reference Range Interpretation Comments A/G Ratio (test code = A/G Ratio) 1.3 1 0.7-1.6 [facility]annCHE[facility] VYYJV5709-32-17 17:39:003.1[facility]annCHEM PANEL 2018-03-11 17:39:00* Test Item Value Reference Range Interpretation Comments B/C Ratio (test code = B/C Ratio) 13 1 04-15 [facility]annCHEM PCWZW5542-89-46 17:39:0013.6[facility]annHEMATOLOGY 2018-03-11 17:39:000.1[facility] RasexywRVCMCIMNXM0888-44-21 17:39:001.0[facility] CknypccPRRHMJAVJV6569-26-49 17:39:000.3[facility] SmylniuKOSIMPMLVE7606-82-70 17:39:004.3[facility] HdradwjFEOLYSYBOV2483-33-29 17:39:002.8[facility] DKOQEWEGRS2119-78-27 17:39:001.0[facility] ZtmwnxsCAYLVQFUDI9293-19-18 17:39:005.8 [facility] MwforbaVGZHRJPPMA9035-35-36 17:39:0050.1[facility] HermannHEMATOLOGY 2018-03-11 17:39:0037.1[facility] NekunmyVIUESSBVCB0793-36-59 17:39:009.0[facility] PvxrfleJWLZYE5172-13-56 17:39:00* Test Item Value Reference Range Interpretation Comments CHD Risk (test code = CHD Risk) 6.91 1 3.90-5.80 [facility] ItwmlyhGUDJMO1609-72-21 17:39:0073[facility] DakrgzqCBCDCQ9445-98-66 17:39:00* Test Item Value Reference Range Interpretation Comments VLDL (test code = VLDL) 63 1 [facility] UfhrnhmCWRYKO1145-75-87 17:39:0023[facility] HagbjpaHQGYDS7997-68-49 17:39:03913Hyubaejk TzquppdDBYXZD1651-57-35 17:39:03901Iezmbanh HermannWhite Blood Ocrhy2628-61-60 21:48:00* Test Item Value Reference Range Interpretation Comments White Blood Count (test code = 6690-2) 10.71 4.8-10.8 [facility] Jxead2888-73-12 21:48:00* Test Item Value Reference Range Interpretation Comments Red Blood Count (test code = 789-8) 5.04 4.3-5.7 [facility] PasoHemoglobin2018-04-25 21:48:00* Test Item Value Reference Range Interpretation Comments Hemoglobin (test code = 60981-8) 17.3 14.0-18.0 LIPEMIC SPECIMEN, PERFORMED SALINE SPECIMEN AND RAN 3 TIMES FOR CONSISTENCYUniversity [facility] Center of El PasoHematocrit2018-04-25 21:48:00* Test Item Value Reference Range Interpretation Comments Hematocrit (test code = 4544-3) 46.1 38.2-49.6 LIPEMIC SPECIMEN, PERFORMED SALINE SPECIMEN AND RAN 3 TIMES FOR CONSISTENCYUniversity [facility] Center of El PasoMean Corpuscular Fzjkaf8677-61-20 21:48:00* Test Item Value Reference Range Interpretation Comments Mean Corpuscular Volume (test code = 787-2) 91.5 81-99 [facility] PasoMean Corpuscular Qsclqiiwak2893-67-30 21:48:00* Test Item Value Reference Range Interpretation Comments Mean Corpuscular Hemoglobin (test code = 785-6) 34.3 28-32 H [facility] PasoMean Corpuscular Hemoglobin Concent 2018-02-13 21:48:00* Test Item Value Reference Range Interpretation Comments Mean Corpuscular Hemoglobin Concent (test code = 786-4) 37.5 31-35 H [facility] PasoRed Cell Distribution Jmhzj9942-74-97 21:48:00* Test Item Value Reference Range Interpretation Comments Red Cell Distribution Width (test code = 02046-2) 14.9 11.7 -14.4 H [facility] PasoPlatelet Advjz6274-30-76 21:48:00* Test Item Value Reference Range Interpretation Comments Platelet Count (test code = 777-3) 390 140-360 H [facility] PasoNeutrophils (%) (Auto)2018-02-13 21:48:00 * Test Item Value Reference Range Interpretation Comments Neutrophils (%) (Auto) (test code = 38699-9) 42.3 38.7-80.0 [facility] PasoLymphocytes (%) (Auto)2018-02-13 21:48:00 * Test Item Value Reference Range Interpretation Comments Lymphocytes (%) (Auto) (test code = 736-9) 43.3 18.0-39.1 H [facility] PasoMonocytes (%) (Auto)2018-02-13 21:48:00* Test Item Value Reference Range Interpretation Comments Monocytes (%) (Auto) (test code = 5905-5) 10.7 4.4-11.3 [facility] PasoEosinophils (%) (Auto)2018-02-13 21:48:00 * Test Item Value Reference Range Interpretation Comments Eosinophils (%) (Auto) (test code = 713-8) 2.5 0.0-6.0 [facility] PasoBasophils (%) (Auto)2018-02-13 21:48:00* Test Item Value Reference Range Interpretation Comments Basophils (%) (Auto) (test code = 706-2) 0.7 0.0-1.0 [facility] PasoIM GRANULOCYTES %2018-02-13 21:48:00* Test Item Value Reference Range Interpretation Comments IM GRANULOCYTES % (test code = IM GRANULOCYTES %) 0.5 0.0- 1.0 [facility] PasoNeutrophils # (Auto)2018-02-13 21:48:00* Test Item Value Reference Range Interpretation Comments Neutrophils # (Auto) (test code = 751-8) 4.5 2.1-6.9 [facility] PasoLymphocytes # (Auto)2018-02-13 21:48:00* Test Item Value Reference Range Interpretation Comments Lymphocytes # (Auto) (test code = 75836-2) 4.6 1.0-3.2 H [facility] PasoMonocytes # (Auto)2018-02-13 21:48:00* Test Item Value Reference Range Interpretation Comments Monocytes # (Auto) (test code = 742-7) 1.2 0.2-0.8 H [facility] PasoEosinophils # (Auto)2018-02-13 21:48:00* Test Item Value Reference Range Interpretation Comments Eosinophils # (Auto) (test code = 711-2) 0.3 0.0-0.4 [facility] PasoBasophils # (Auto)2018-02-13 21:48:00* Test Item Value Reference Range Interpretation Comments Basophils # (Auto) (test code = 704-7) 0.1 0.0-0.1 [facility] PasoAbsolute Immature Granulocyte (auto 2018-02-13 21:48:00* Test Item Value Reference Range Interpretation Comments Absolute Immature Granulocyte (auto (hiral t code = Absolute Immature Granulocyte (auto) 0.05 0-0.1 [facility] PasoB-Type Natriuretic Wzatzjp0089-17-28 21:46:00* Test Item Value Reference Range Interpretation Comments B-Type Natriuretic Peptide (test code = 29239-4) -10.0 0-100 [facility] PasoB-Type Natriuretic Ycwudsg2133-94-84 21:46:00* Test Item Value Reference Range Interpretation Comments B-Type Natriuretic Peptide (test code = 75632-7) -10.0 0-100 [facility] PasoCreatine Kinase JX7364-59-74 21:29:00* Test Item Value Reference Range Interpretation Comments Creatine Kinase MB (test code = 60127-2) 3.20 0-5.0 [facility] PasoTroponin G8665-56-08 21:29:00* Test Item Value Reference Range Interpretation Comments Troponin I (test code = LAI9675) 0.008 0-0.300 [facility] PasoD-Dimer Quantitative (PE/DVT)2018-02-13 21:26:00* Test Item Value Reference Range Interpretation Comments D-Dimer Quantitative (PE/DVT) (test code = 44829-6) 0.91 0. 00-0.45 H [facility] PasoD-Dimer Quantitative (PE/DVT)2018-02-13 21:26:00* Test Item Value Reference Range Interpretation Comments D-Dimer Quantitative (PE/DVT) (test code = 75917-1) 0.91 0. 00-0.45 H [facility]odium Wneqs7296-07-88 21:25:00* Test Item Value Reference Range Interpretation Comments Sodium Level (test code = 2951-2) 139 136-145 [facility] PasoPotassium Rjuyx5367-80-45 21:25:00* Test Item Value Reference Range Interpretation Comments Potassium Level (test code = 2823-3) 3.8 3.5-5.1 [facility] PasoChloride Adpyo6651-41-83 21:25:00* Test Item Value Reference Range Interpretation Comments Chloride Level (test code = 2075-0) 106 98-107 [facility] PasoCarbon Dioxide Acmnc2942-70-03 21:25:00* Test Item Value Reference Range Interpretation Comments Carbon Dioxide Level (test code = 2028-9) 22 22-29 [facility] PasoAnion Dlu2992-01-04 21:25:00* Test Item Value Reference Range Interpretation Comments Anion Gap (test code = 46171-4) 14.8 8-16 [facility] PasoBlood Urea Vkylynge3484-38-31 21:25:00* Test Item Value Reference Range Interpretation Comments Blood Urea Nitrogen (test code = 3094-0) 15 7-26 [facility] PasoCreatinine2018-04-25 21:25:00* Test Item Value Reference Range Interpretation Comments Creatinine (test code = 2160-0) 0.95 0.72-1.25 [facility] PasoBUN/Creatinine Zzehn6378-49-10 21:25:00* Test Item Value Reference Range Interpretation Comments BUN/Creatinine Ratio (test code = 3097-3) 16 6-25 [facility] PasoEstimat Glomerular Filtration Rate 2018-02-13 21:25:00* Test Item Value Reference Range Interpretation Comments Estimat Glomerular Filtration Rate (test code = 36760-6) 60- >60 Ranges were taken from the National Kidney Disease Education Program and the [facility] Foundation literature.Reference ranges:60 or greater: Qddzyg60-65 ( for 3 consecutive months): Chronic kidney disease 15 or less: Kidney failureUniversity Medical Center of El PasoGlucose Njekt1807-90-61 21:25:00* Test Item Value Reference Range Interpretation Comments Glucose Level (test code = NYP3753) 106 74-118 [facility] PasoCalcium Csfab8951-82-19 21:25:00* Test Item Value Reference Range Interpretation Comments Calcium Level (test code = 24664-8) 9.4 8.4-10.2 [facility] PasoTotal Rtjqfdxyh3981-57-16 21:25:00* Test Item Value Reference Range Interpretation Comments Total Bilirubin (test code = 1975-2) 0.4 0.2-1.2 [facility] PasoAspartate Amino Transf (AST/SGOT) 2018-02-13 21:25:00* Test Item Value Reference Range Interpretation Comments Aspartate Amino Transf (AST/SGOT) (test code = Aspartate Amino Transf (AST/SGOT)) 27 5-34 [facility] PasoAlanine Aminotransferase (ALT/SGPT) 2018-02-13 21:25:00* Test Item Value Reference Range Interpretation Comments Alanine Aminotransferase (ALT/SGPT) (test code = 1742-6) 38 0-55 [facility] PasoTotal Iipvxrg8517-46-77 21:25:00* Test Item Value Reference Range Interpretation Comments Total Protein (test code = 2885-2) 7.4 6.5-8.1 [facility] PasoAlbumin2018-04-25 21:25:00* Test Item Value Reference Range Interpretation Comments Albumin (test code = 1751-7) 3.8 3.5-5.0 [facility] PasoGlobulin2018-04-25 21:25:00* Test Item Value Reference Range Interpretation Comments Globulin (test code = 56970-7) 3.6 2.3-3.5 H [facility] PasoAlbumin/Globulin Bffxh4124-09-32 21:25:00 * Test Item Value Reference Range Interpretation Comments Albumin/Globulin Ratio (test code = 1759-0) 1.1 0.8-2.0 [facility] PasoAlkaline Ysdwhfiqatk5224-85-33 21:25:00* Test Item Value Reference Range Interpretation Comments Alkaline Phosphatase (test code = 6768-6) 63 40-150 [facility] PasoCreatine Zyqgjl8597-69-68 21:25:00* Test Item Value Reference Range Interpretation Comments Creatine Kinase (test code = 2157-6) 172 30-200 [facility] PasoActivated Partial Thromboplast Time 2018-02-13 21:13:00* Test Item Value Reference Range Interpretation Comments Activated Partial Thromboplast Time (test code = 32225-2) 27.4 23.8-35.5 [facility] PasoActivated Partial Thromboplast Time 2018-02-13 21:13:00* Test Item Value Reference Range Interpretation Comments Activated Partial Thromboplast Time (test code = 68788-0) 27.4 23.8-35.5 [facility] PasoProthrombin Pnza8683-73-83 21:12:00* Test Item Value Reference Range Interpretation Comments Prothrombin Time (test code = 5902-2) 12.5 11.9-14.5 [facility] PasoProthromb Time International Ratio 2018-02-13 21:12:00* Test Item Value Reference Range Interpretation Comments Prothromb Time International Ratio (test code = 6301-6) 1.01 Oral Anticoagulant Therapy INR Values:1. Low Intensity Therapy 1.5 - 2.02 . Moderate Intensity Therapy 2.0 - 3.03. High Intensity Therapy(1) 2.5 - 3. 54. High Intensity Therapy(2) 3.0 - 4.05. Panic Value INR > 5.0 [facility] PasoProthrombin Xkil0651-23-38 21:12:00* Test Item Value Reference Range Interpretation Comments Prothrombin Time (test code = 5902-2) 12.5 11.9-14.5 [facility] PasoProthromb Time International Ratio 2018-02-13 21:12:00* Test Item Value Reference Range Interpretation Comments Prothromb Time International Ratio (test code = 6301-6) 1.01 Oral Anticoagulant Therapy INR Values:1. Low Intensity Therapy 1.5 - 2.02 . Moderate Intensity Therapy 2.0 - 3.03. High Intensity Therapy(1) 2.5 - 3. 54. High Intensity Therapy(2) 3.0 - 4.05. Panic Value INR > 5.0 [facility] PasoCreatine Kinase CI7401-39-88 07:42:00* Test Item Value Reference Range Interpretation Comments Creatine Kinase MB (test code = 55581-9) 3.80 0-5.0 [facility] PasoTroponin A1637-65-84 07:42:00* Test Item Value Reference Range Interpretation Comments Troponin I (test code = ZQM4212) -0.001 0-0.300 [facility] Centerodium Ocqku2898-01-81 07:39:00* Test Item Value Reference Range Interpretation Comments Sodium Level (test code = 2951-2) 141 136-145 [facility] PasoPotassium Dlnzc4986-80-94 07:39:00* Test Item Value Reference Range Interpretation Comments Potassium Level (test code = 2823-3) 4.2 3.5-5.1 [facility] PasoChloride Jzcoo6957-45-08 07:39:00* Test Item Value Reference Range Interpretation Comments Chloride Level (test code = 2075-0) 112 98-107 H [facility] PasoCarbon Dioxide Szxzf5147-84-61 07:39:00* Test Item Value Reference Range Interpretation Comments Carbon Dioxide Level (test code = 2028-9) 22 22-29 [facility] PasoAnion Yay6275-93-50 07:39:00* Test Item Value Reference Range Interpretation Comments Anion Gap (test code = 48281-0) 11.2 8-16 [facility] PasoBlood Urea Dmdaplhn7879-52-58 07:39:00* Test Item Value Reference Range Interpretation Comments Blood Urea Nitrogen (test code = 3094-0) 14 7-26 [facility] PasoCreatinine2018-02-26 07:39:00* Test Item Value Reference Range Interpretation Comments Creatinine (test code = 2160-0) 0.82 0.72-1.25 [facility] PasoBUN/Creatinine Beyxi4697-02-19 07:39:00* Test Item Value Reference Range Interpretation Comments BUN/Creatinine Ratio (test code = 3097-3) 17 6-25 [facility] PasoEstimat Glomerular Filtration Rate 2017-12-17 07:39:00* Test Item Value Reference Range Interpretation Comments Estimat Glomerular Filtration Rate (test code = 43185-5) 60- >60 Ranges were taken from the National Kidney Disease Education Program and the [facility] Kidney Foundation literature.Reference ranges:60 or greater: Etpzxv37-23 ( for 3 consecutive months): Chronic kidney disease 15 or less: Kidney failureCH[facility] Mansfield [facility] CenterGlucose Vlyfz6550-13-56 07:39:00* Test Item Value Reference Range Interpretation Comments Glucose Level (test code = PLD6964) 116 74-118 [facility] PasoCalcium Elwfa4741-75-00 07:39:00* Test Item Value Reference Range Interpretation Comments Calcium Level (test code = 89923-2) 8.3 8.4-10.2 L [facility] PasoTotal Mrapefhdp7003-72-33 07:39:00* Test Item Value Reference Range Interpretation Comments Total Bilirubin (test code = 1975-2) 0.4 0.2-1.2 [facility] PasoAspartate Amino Transf (AST/SGOT) 2017-12-17 07:39:00* Test Item Value Reference Range Interpretation Comments Aspartate Amino Transf (AST/SGOT) (test code = Aspartate Amino Transf (AST/SGOT)) 31 5-34 [facility] PasoAlanine Aminotransferase (ALT/SGPT) 2017-12-17 07:39:00* Test Item Value Reference Range Interpretation Comments Alanine Aminotransferase (ALT/SGPT) (test code = 1742-6) 43 0-55 [facility] PasoTotal Wijrsca8232-80-65 07:39:00* Test Item Value Reference Range Interpretation Comments Total Protein (test code = 2885-2) 5.7 6.5-8.1 L [facility] PasoAlbumin2018-02-26 07:39:00* Test Item Value Reference Range Interpretation Comments Albumin (test code = 1751-7) 3.4 3.5-5.0 L [facility] PasoGlobulin2018-02-26 07:39:00* Test Item Value Reference Range Interpretation Comments Globulin (test code = 91211-8) 2.3 2.3-3.5 [facility] PasoAlbumin/Globulin Cbaql2262-66-25 07:39:00 * Test Item Value Reference Range Interpretation Comments Albumin/Globulin Ratio (test code = 1759-0) 1.5 0.8-2.0 [facility] PasoAlkaline Cqyteqypgot2405-86-43 07:39:00* Test Item Value Reference Range Interpretation Comments Alkaline Phosphatase (test code = 6768-6) 44 40-150 [facility] PasoTriglycerides Oslpy6516-80-38 07:39:00* Test Item Value Reference Range Interpretation Comments Triglycerides Level (test code = 2571-8) 133 0-149 [facility] PasoCholesterol Rrxcp8952-38-77 07:39:00* Test Item Value Reference Range Interpretation Comments Cholesterol Level (test code = 2093-3) 131 0-199 Less than 200 mg/dL Low Srvw081 - 239 mg/dL Borderline Mvwg303 m g/dl and greater High Risk [facility] PasoLDL Kqhrsojydat8612-23-50 07:39:00* Test Item Value Reference Range Interpretation Comments LDL Cholesterol (test code = 2089-1) 80 60-130 [facility] PasoHDL Xstvagwkabq9839-50-39 07:39:00* Test Item Value Reference Range Interpretation Comments HDL Cholesterol (test code = 2085-9) 24 40-60 L [facility] PasoCholesterol/HDL Ptweh5875-68-67 07:39:00 * Test Item Value Reference Range Interpretation Comments Cholesterol/HDL Ratio (test code = 9830-1) 5.5 3.9-4.7 H [facility] PasoTriglycerides Zugvn7696-71-52 07:39:00* Test Item Value Reference Range Interpretation Comments Triglycerides Level (test code = 2571-8) 133 0-149 [facility] PasoCholesterol Vlosz2990-79-84 07:39:00* Test Item Value Reference Range Interpretation Comments Cholesterol Level (test code = 2093-3) 131 0-199 Less than 200 mg/dL Low Ugnf559 - 239 mg/dL Borderline Mcte734 m g/dl and greater High Risk [facility] PasoLDL Xukmiflkjzw7381-70-81 07:39:00* Test Item Value Reference Range Interpretation Comments LDL Cholesterol (test code = 2089-1) 80 60-[address] [facility]L Demclhuhsiz5255-28-95 07:39:00* Test Item Value Reference Range Interpretation Comments HDL Cholesterol (test code = 2085-9) 24 40-60 L [facility] PasoCholesterol/HDL Uzyac4705-45-15 07:39:00 * Test Item Value Reference Range Interpretation Comments Cholesterol/HDL Ratio (test code = 9830-1) 5.5 3.9-4.7 H [facility] PasoTriglycerides Uhhoo6672-51-51 07:39:00* Test Item Value Reference Range Interpretation Comments Triglycerides Level (test code = 2571-8) 133 0-149 [facility] PasoCholesterol Mymeg5311-74-68 07:39:00* Test Item Value Reference Range Interpretation Comments Cholesterol Level (test code = 2093-3) 131 0-199 Less than 200 mg/dL Low Gbbq710 - 239 mg/dL Borderline Ivtt715 m g/dl and greater High Risk [facility] PasoLDL Eqglsufjufj9611-60-86 07:39:00* Test Item Value Reference Range Interpretation Comments LDL Cholesterol (test code = 2089-1) 80 60-[address] [facility] CenterL Mcbjwuobigb4150-48-03 07:39:00* Test Item Value Reference Range Interpretation Comments HDL Cholesterol (test code = 2085-9) 24 40-60 L [facility] PasoCholesterol/HDL Mrdyt6545-35-77 07:39:00 * Test Item Value Reference Range Interpretation Comments Cholesterol/HDL Ratio (test code = 9830-1) 5.5 3.9-4.7 H [facility] [facility]Creat[facility] Kvmqgz5336-92-48 07:32:00* Test Item Value Reference Range Interpretation Comments Creatine Kinase (test code = 2157-6) 261 30-200 [facility]White Blood Iyxon3103-58-46 07:22:00* Test Item Value Reference Range Interpretation Comments White Blood Count (test code = 6690-2) 8.14 4.8-10.8 [facility] PasoRed Blood Iugix6120-46-19 07:22:00* Test Item Value Reference Range Interpretation Comments Red Blood Count (test code = 789-8) 3.40 4.3-5.7 L [facility]Hemoglobin2018-02-26 07:22:00* Test Item Value Reference Range Interpretation Comments Hemoglobin (test code = 53829-9) 11.7 14.0-18.0 L [facility]Hematocrit2018-02-26 07:22:00* Test Item Value Reference Range Interpretation Comments Hematocrit (test code = 4544-3) 31.2 38.2-49.6 L [facility] PasoMean Corpuscular Tejobv0071-76-04 07:22:00* Test Item Value Reference Range Interpretation Comments Mean Corpuscular Volume (test code = 787-2) 91.8 81-99 [facility]Mean Corpuscular Ueapgyybmy2712-59-45 07:22:00* Test Item Value Reference Range Interpretation Comments Mean Corpuscular Hemoglobin (test code = 785-6) 34.4 28-32 H [facility] PasoMean Corpuscular Hemoglobin Concent 2017-12-17 07:22:00* Test Item Value Reference Range Interpretation Comments Mean Corpuscular Hemoglobin Concent (test code = 786-4) 37.5 31-35 H [facility] PasoRed Cell Distribution Urprc8179-78-86 07:22:00* Test Item Value Reference Range Interpretation Comments Red Cell Distribution Width (test code = 44301-9) 13.0 11.7 -14.4 [facility] PasoPlatelet Zrrhe3403-78-09 07:22:00* Test Item Value Reference Range Interpretation Comments Platelet Count (test code = 777-3) 310 140-360 [facility] PasoNeutrophils (%) (Auto)2017-12-17 07:22:00 * Test Item Value Reference Range Interpretation Comments Neutrophils (%) (Auto) (test code = 74203-8) 47.5 38.7-80.0 [facility] PasoLymphocytes (%) (Auto)2017-12-17 07:22:00 * Test Item Value Reference Range Interpretation Comments Lymphocytes (%) (Auto) (test code = 736-9) 40.0 18.0-39.1 H [facility] PasoMonocytes (%) (Auto)2017-12-17 07:22:00* Test Item Value Reference Range Interpretation Comments Monocytes (%) (Auto) (test code = 5905-5) 7.9 4.4-11.3 [facility]Eosinophils (%) (Auto)2017-12-17 07:22:00 * Test Item Value Reference Range Interpretation Comments Eosinophils (%) (Auto) (test code = 713-8) 3.7 0.0-6.0 [facility]Basophils (%) (Auto)2017-12-17 07:22:00* Test Item Value Reference Range Interpretation Comments Basophils (%) (Auto) (test code = 706-2) 0.7 0.0-1.0 [facility] PasoIM GRANULOCYTES %2017-12-17 07:22:00* Test Item Value Reference Range Interpretation Comments IM GRANULOCYTES % (test code = IM GRANULOCYTES %) 0.2 0.0- 1.0 [facility] PasoNeutrophils # (Auto)2017-12-17 07:22:00* Test Item Value Reference Range Interpretation Comments Neutrophils # (Auto) (test code = 751-8) 3.9 2.1-6.9 [facility] PasoLymphocytes # (Auto)2017-12-17 07:22:00* Test Item Value Reference Range Interpretation Comments Lymphocytes # (Auto) (test code = 71227-9) 3.3 1.0-3.2 H [facility] PasoMonocytes # (Auto)2017-12-17 07:22:00* Test Item Value Reference Range Interpretation Comments Monocytes # (Auto) (test code = 742-7) 0.6 0.2-0.8 [facility]Eosinophils # (Auto)2017-12-17 07:22:00* Test Item Value Reference Range Interpretation Comments Eosinophils # (Auto) (test code = 711-2) 0.3 0.0-0.4 [facility]Basophils # (Auto)2017-12-17 07:22:00* Test Item Value Reference Range Interpretation Comments Basophils # (Auto) (test code = 704-7) 0.1 0.0-0.1 [facility] PasoAbsolute Immature Granulocyte (auto 2017-12-17 07:22:00* Test Item Value Reference Range Interpretation Comments Absolute Immature Granulocyte (auto (hiral t code = Absolute Immature Granulocyte (auto) 0.02 0-0.1 [facility] PasoUrine SQQ5380-35-66 21:30:00* Test Item Value Reference Range Interpretation Comments Urine WBC (test code = 5821-4) 0-5 0-5 [facility] PasoU[facility] SIO0142-79-26 21:30:00* Test Item Value Reference Range Interpretation Comments Urine RBC (test code = 41840-0) 0-5 0-5 [facility] Nnxmdfdv5054-64-72 21:30:00* Test Item Value Reference Range Interpretation Comments Urine Bacteria (test code = 63242-3) RARE NONE [facility] Epithelial Xjvar9126-05-18 21:30:00 * Test Item Value Reference Range Interpretation Comments Urine Epithelial Cells (test code = 21345-9) FEW NONE [facility] CHF8601-06-25 21:30:00* Test Item Value Reference Range Interpretation Comments Urine WBC (test code = 5821-4) 0-5 0-5 [facility] VZX4845-73-19 21:30:00* Test Item Value Reference Range Interpretation Comments Urine RBC (test code = 07668-8) 0-5 0-5 [facility] Sqsiesfk1780-01-21 21:30:00* Test Item Value Reference Range Interpretation Comments Urine Bacteria (test code = 53039-8) RARE NONE [facility] Epithelial Fmefk1504-31-59 21:30:00 * Test Item Value Reference Range Interpretation Comments Urine Epithelial Cells (test code = 37865-2) FEW NONE [facility] AFV0393-55-10 21:30:00* Test Item Value Reference Range Interpretation Comments Urine WBC (test code = 5821-4) 0-5 0-5 [facility] VPK2255-00-82 21:30:00* Test Item Value Reference Range Interpretation Comments Urine RBC (test code = 71818-8) 0-5 0-5 [facility] Cmulhpqe8594-95-30 21:30:00* Test Item Value Reference Range Interpretation Comments Urine Bacteria (test code = 32837-2) RARE NONE [facility] Epithelial Obfvr2558-22-38 21:30:00 * Test Item Value Reference Range Interpretation Comments Urine Epithelial Cells (test code = 17196-7) FEW NONE [facility] Atxnh1551-74-69 21:13:00* Test Item Value Reference Range Interpretation Comments Urine Color (test code = 5778-6) YELLOW YELLOW [facility] Jrokprq5171-05-08 21:13:00* Test Item Value Reference Range Interpretation Comments Urine Clarity (test code = 12106-2) CLEAR CLEAR [facility] Specific Wenougp0946-95-68 21:13:00 * Test Item Value Reference Range Interpretation Comments Urine Specific [place] (test code = 5811-5) 1.015 1.010-1.02 5 [facility] sA1607-17-50 21:13:00* Test Item Value Reference Range Interpretation Comments Urine pH (test code = 31284-3) 5 5-7 [facility] Leukocyte Hkupbelu7600-27-16 21:13:00* Test Item Value Reference Range Interpretation Comments Urine Leukocyte Esterase (test code = 5799-2) NEGATIVE NEGATIVE [facility] Yztyjlq1280-73-07 21:13:00* Test Item Value Reference Range Interpretation Comments Urine Nitrite (test code = 94713-7) NEGATIVE NEGATIVE [facility] Zjxeryc8824-65-71 21:13:00* Test Item Value Reference Range Interpretation Comments Urine Protein (test code = 5804-0) NEGATIVE NEGATIVE [facility] Glucose (UA)2017-12-15 21:13:00* Test Item Value Reference Range Interpretation Comments Urine Glucose (UA) (test code = 2349-9) NEGATIVE NEGATIVE [facility] Inxyhcy2925-89-72 21:13:00* Test Item Value Reference Range Interpretation Comments Urine Ketones (test code = 68675-7) NEGATIVE NEGATIVE [facility] Phfwahnvffnr9615-82-49 21:13:00* Test Item Value Reference Range Interpretation Comments Urine Urobilinogen (test code = 40727-1) 0.2 0.2-1 [facility] Mkdqnxirr4305-66-69 21:13:00* Test Item Value Reference Range Interpretation Comments Urine Bilirubin (test code = 1978-6) NEGATIVE NEGATIVE [facility] Icbfq7804-28-82 21:13:00* Test Item Value Reference Range Interpretation Comments Urine Blood (test code = 71790-4) NEGATIVE NEGATIVE [facility] Buzgg7792-65-72 21:13:00* Test Item Value Reference Range Interpretation Comments Urine Color (test code = 5778-6) YELLOW YELLOW [facility] Nqshhmh1762-34-30 21:13:00* Test Item Value Reference Range Interpretation Comments Urine Clarity (test code = 99166-7) CLEAR CLEAR [facility] Specific Siscmgu7401-29-15 21:13:00 * Test Item Value Reference Range Interpretation Comments Urine Specific [place] (test code = 5811-5) 1.015 1.010-1.02 5 [facility] tK7107-37-00 21:13:00* Test Item Value Reference Range Interpretation Comments Urine pH (test code = 92596-1) 5 5-7 [facility] Leukocyte Uijvyugs0011-58-94 21:13:00* Test Item Value Reference Range Interpretation Comments Urine Leukocyte Esterase (test code = 5799-2) NEGATIVE NEGATIVE [facility] Gizioau6044-63-18 21:13:00* Test Item Value Reference Range Interpretation Comments Urine Nitrite (test code = 63347-3) NEGATIVE NEGATIVE [facility] Jlegacw2724-16-93 21:13:00* Test Item Value Reference Range Interpretation Comments Urine Protein (test code = 5804-0) NEGATIVE NEGATIVE [facility] Glucose (UA)2017-12-15 21:13:00* Test Item Value Reference Range Interpretation Comments Urine Glucose (UA) (test code = 2349-9) NEGATIVE NEGATIVE [facility] Vuznnvr6432-37-79 21:13:00* Test Item Value Reference Range Interpretation Comments Urine Ketones (test code = 31385-1) NEGATIVE NEGATIVE [facility] Jnjprorzlrcj1898-67-48 21:13:00* Test Item Value Reference Range Interpretation Comments Urine Urobilinogen (test code = 46788-3) 0.2 0.2-1 [facility] Flyhuzkfe9914-00-17 21:13:00* Test Item Value Reference Range Interpretation Comments Urine Bilirubin (test code = 1978-6) NEGATIVE NEGATIVE [facility] Vuulx8508-14-88 21:13:00* Test Item Value Reference Range Interpretation Comments Urine Blood (test code = 34304-2) NEGATIVE NEGATIVE [facility] Flqss0705-27-96 21:13:00* Test Item Value Reference Range Interpretation Comments Urine Color (test code = 5778-6) YELLOW YELLOW [facility] Vlmnjvm3332-48-78 21:13:00* Test Item Value Reference Range Interpretation Comments Urine Clarity (test code = 55454-1) CLEAR CLEAR [facility] Specific Jvrxjpu8957-77-13 21:13:00 * Test Item Value Reference Range Interpretation Comments Urine Specific [place] (test code = 5811-5) 1.015 1.010-1.02 5 [facility] zH7822-37-94 21:13:00* Test Item Value Reference Range Interpretation Comments Urine pH (test code = 86935-8) 5 5-7 [facility] Leukocyte Qmoxoekc3808-07-62 21:13:00* Test Item Value Reference Range Interpretation Comments Urine Leukocyte Esterase (test code = 5799-2) NEGATIVE NEGATIVE [facility] Nmeiuyy9123-61-93 21:13:00* Test Item Value Reference Range Interpretation Comments Urine Nitrite (test code = 40709-9) NEGATIVE NEGATIVE [facility] Uxnhuaf8126-40-30 21:13:00* Test Item Value Reference Range Interpretation Comments Urine Protein (test code = 5804-0) NEGATIVE NEGATIVE [facility] Glucose (UA)2017-12-15 21:13:00* Test Item Value Reference Range Interpretation Comments Urine Glucose (UA) (test code = 2349-9) NEGATIVE NEGATIVE [facility] Rpnfonl7874-95-46 21:13:00* Test Item Value Reference Range Interpretation Comments Urine Ketones (test code = 18516-5) NEGATIVE NEGATIVE [facility] Kkmmtslohyrr8166-62-11 21:13:00* Test Item Value Reference Range Interpretation Comments Urine Urobilinogen (test code = 59853-7) 0.2 0.2-1 [facility] Myfwikxuc9176-83-03 21:13:00* Test Item Value Reference Range Interpretation Comments Urine Bilirubin (test code = 1978-6) NEGATIVE NEGATIVE [facility] Jhmnf0946-47-07 21:13:00* Test Item Value Reference Range Interpretation Comments Urine Blood (test code = 24436-1) NEGATIVE NEGATIVE [facility] PasoProthrombin Fqsg2353-04-18 20:29:00* Test Item Value Reference Range Interpretation Comments Prothrombin Time (test code = 5902-2) 13.1 11.9-14.5 [facility] PasoProthromb Time International Ratio 2017-12-15 20:29:00* Test Item Value Reference Range Interpretation Comments Prothromb Time International Ratio (test code = 6301-6) 1.07 Oral Anticoagulant Therapy INR Values:1. Low Intensity Therapy 1.5 - 2.02 . Moderate Intensity Therapy 2.0 - 3.03. High Intensity Therapy(1) 2.5 - 3. 54. High Intensity Therapy(2) 3.0 - 4.05. Panic Value INR > 5.0 [facility] PasoAct[facility] Partial Thromboplast Time 2017-12-15 20:29:00* Test Item Value Reference Range Interpretation Comments Activated Partial Thromboplast Time (test code = 20740-4) 29.2 23.8-35.5 [facility] Paso[facility] [address] [address] Patient Name: JOSEPH LONGO MR #: [id number] : 1950 Age/Sex: 67/M Req #: [id number] Adm Physician: Ordered by: TRAE LÓPEZ MD Report #: [id number] Location: ER Room/Bed: Procedure: [id number] CT/CT CHEST W Exam Ervin e: 02/13/18 [...] TO: TRAE LÓPEZ MD CHEST SINGLE (PORTABLE) [place] [address] Patient Name: JOSEPH LONGO MR #: [id number] : 1950 Age/Sex: 67/M Req #: [id number] Adm Physician: Ordered by: TRAE LÓPEZ MD Report #: [id number] [facility]Bed: Procedure: [id number] DX/CHEST SINGLE (PORTAB LE) Exam Date: 02/13/18 [...] TO: TRAE LÓPEZ MD CT CERVICAL SPINE [place] [address] Patient Name: JOSEPH LONGO MR #: [id number] : 1950 Age/Sex: 67/M Req #: [id number] Adm Physician: Ordered by: YUNG CHIRINOS MD Report #: [id number] Location: ER Room/Bed: Procedure: [id number] CT/CT CERVICAL SPINE WO Exam Date: 12/15/17 [...] 12/16/17 0001 Transcribed By: GILDA Gilbert on 12/16/172237 COPY TO: YUNG CHIRINOS MD CT BRAIN WO [place] [address] Patient Name: JOSEPH LONGO MR #: [id number] : 1950 Age/Sex: 67/M Req #: [id number] Adm Physician: Ordered by: YUNG CHIRINOS MD Report #: [id number] Location: ER Room/Bed : Procedure: [id number] CT/CT BRAIN WO Exam Date: Exam Time: [...] be assessed with CT. Signed by: Dr. oRnnie Ferreira M.D. on 12/16/2017 12:01 AM Dictated By: RONNIE FERREIRA MD Electronic ally Signed By: RONNIE FERREIRA MD on 12/16/17 0001 Transcribed By: RADHA on 11/23 03/08 0001 COPY TO: YUNG CHIRINOS MD CT CHEST W [place] [address] Patient Name: JOSEPH LONGO MR #: [id number] : 1950 Age/Sex: 67/M Req #: [id number] Adm Physician: Ordered by: YUNG CHIRINOS MD Report #: [id number] Location: ER Room/Bed: Procedure: [id number] CT/CT CHEST W Exam Date: 11/23 02/06 [...] TO: YUNG CHIRINOS MD CHEST 2 VIEWS [place] [address] Patient Name: JOSEPH LONGO MR #: [id number] : 1950 Age/Sex: 67/M Req #: [id number] Adm Physician: Ordered by: YUNG CHIRINOS MD Report #: [id number] Location: ER Room/Bed : Procedure: [id number] DX/CHEST 2 VIEWS Exam Date: 0 12/15/17 [...]
[2020-09-17 16:42] LABS: ALANINE AMINOTRANSFERASE 14 IU/L (0-55); ALBUMIN 3.2 g/dL (3.5-5.0); ALBUMIN/GLOBULIN RATIO 0.8 (0.8-2.0); ALKALINE PHOSPHATASE 71 IU/L (40-150); ANION GAP 15.5 mmol/L (8-16); BLOOD UREA NITROGEN 9 mg/dL (7-26); BUN/CREATININE RATIO 12 (6-25); CALCIUM 8.7 mg/dL (8.4-10.2); CARBON DIOXIDE 22 mmol/L (22-29); CHLORIDE 102 mmol/L (98-107); CREATININE, SERUM 0.73 mg/dL (0.72-1.25); EST GLOMERULAR FILTRATION RATE > 60 ML/MIN (60-); GLUCOSE 119 mg/dL (74-118); POTASSIUM 4.5 mmol/L (3.5-5.1); SODIUM 135 mmol/L (136-145)
--- NOTE | 2020-09-17 17:23 | Emergency Department Note ---
History of Present Illnes History of Present Illness Chief Complaint: COVID PUI History of Present Illness This is a 70 year old male Chief Complaint Comment 70 Y/O MALE PT AAOX3 PRESENTS TO THE ER C/O DYSPNEA AND PAIN ACROSS LOWER LT RIB CAGE FOR THE PAST COUPLE OF DAYS; HX OF STAGE 4 LUNG CA; PT STATES HE IS ALWAYS EXPERIENCES DYSPNEA BUT HAS WORSENED OVER THE PAST COUPLE OF DAYS; REPORTS DYSPNEA ON EXERTION AND WHILE LAYING DOWN; Historian: Patient Arrival Mode: Car Facs Teacher Required: No Onset (how long ago): day(s) Location: lower rib Quality: pain Radiation: Reports non-radiation Severity: mild Onset quality: gradual Duration (how long): day(s) Timing of current episode: constant Progression: unchanged Chronicity: new Context: Reports recent illness (Cancer); Denies recent surgery Relieving factors: none Exacerbating factors: none Associated symptoms: Reports denies other symptoms Treatments prior to arrival: none (KENNETH ALFORD MD) Past Medical/Family History Physician Review I have reviewed the patient's past medical and family history. Any updates have been documented here. 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 (KENNETH ALFORD MD) Social History Smoking Cessation: Unknown if ever smoked Alcohol Use: None Any Illegal Drug Use: No (KENNETH ALFORD MD) Other Last Tetanus: [place] Any Pre-Existing Lines (PICC,: No (KENNETH ALFORD MD) Review of Systems Review of Systems Constitutional: Reports no symptoms EENTM: Reports no symptoms Cardiovascular: Reports as per HPI, Reports chest pain Respiratory: Reports no symptoms Gastrointestinal: Reports no symptoms Genitourinary: Reports no symptoms Musculoskeletal: Reports no symptoms Integumentary: Reports no symptoms Neurological: Reports no symptoms Psychological: Reports no symptoms Endocrine: Reports no symptoms Hematological/Lymphatic: Reports no symptoms (KENNETH ALFORD MD) Physical Exam Related Data Allergies: Coded Allergies: diphenhydramine HCl (Verified Allergy, Mild, ITCHY, 04/17/18) Triage Vital Signs Vital Signs Date Time Temp Pulse Resp B/P (MAP) Pulse Ox O2 Delivery O2 Flow Rate FiO2 09/17/20 15:40 81 20 111/74 100 Room Air Vital signs reviewed: Yes (KENNETH ALFORD MD) Physical Exam CONSTITUTIONAL Constitutional: Present well-developed, Present well-nourished HENT HENT: Present normocephalic, Present atraumatic, Present oropharynx clear/moist, Present nose normal HENT L/R: Present left ext ear normal, Present right ext ear normal EYES Eyes: Reports PERRL, Reports conjunctivae normal NECK Neck: Present ROM normal PULMONARY Pulmonary: Present effort normal, Present breath sounds normal CARDIOVASCULAR Cardiovascular: Present regular rhythm, Present heart sounds normal, Present capillary refill normal, Present normal rate GASTROINTESTINAL Abdominal: Present soft, Present nontender, Present bowel sounds normal GENITOURINARY Genitourinary: Present exam deferred SKIN Skin: Present warm, Present dry MUSCULOSKELETAL Musculoskeletal: Present ROM normal NEUROLOGICAL Neurological: Present alert, Present oriented x 3, Present no gross motor or sensory deficits PSYCHOLOGICAL Psychological: Present mood/affect normal, Present judgement normal (KENNETH ALFORD MD) Results Laboratory Result Diagram: 09/17/20 1600 09/17/20 1600 Laboratory Laboratory Tests Test 09/17/20 16:00 White Blood Count 11.02 x10e3/uL (4.8-10.8) Red Blood Count 3.92 x10e6/uL (4.3-5.7) Hemoglobin 11.9 g/dL (14.0-18.0) Hematocrit 34.5 % (38.2-49.6) Mean Corpuscular Volume 88.0 fL (81-99) Mean Corpuscular Hemoglobin 30.4 pg (28-32) Mean Corpuscular Hemoglobin Concent 34.5 g/dL (31-35) Red Cell Distribution Width 15.5 % (11.7-14.4) Platelet Count 423 x10e3/uL (140-360) Neutrophils (%) (Auto) 78.2 % (38.7-80.0) Lymphocytes (%) (Auto) 10.7 % (18.0-39.1) Monocytes (%) (Auto) 6.7 % (4.4-11.3) Eosinophils (%) (Auto) 3.4 % (0.0-6.0) Basophils (%) (Auto) 0.5 % (0.0-1.0) Neutrophils # (Auto) 8.6 (2.1-6.9) Lymphocytes # (Auto) 1.2 (1.0-3.2) Monocytes # (Auto) 0.7 (0.2-0.8) Eosinophils # (Auto) 0.4 (0.0-0.4) Basophils # (Auto) 0.1 (0.0-0.1) Absolute Immature Granulocyte (auto 0.05 x10e3/uL (0-0.1) Sodium Level 135 mmol/L (136-145) Potassium Level 4.5 mmol/L (3.5-5.1) Chloride Level 102 mmol/L (98-107) Carbon Dioxide Level 22 mmol/L (22-29) Anion Gap 15.5 mmol/L (8-16) Blood Urea Nitrogen 9 mg/dL (7-26) Creatinine 0.73 mg/dL (0.72-1.25) Estimat Glomerular Filtration Rate > 60 ML/MIN (60-) BUN/Creatinine Ratio 12 (6-25) Glucose Level 119 mg/dL (74-118) Calcium Level 8.7 mg/dL (8.4-10.2) Total Bilirubin 0.2 mg/dL (0.2-1.2) Aspartate Amino Transf (AST/SGOT) 18 IU/L (5-34) Alanine Aminotransferase (ALT/SGPT) 14 IU/L (0-55) Alkaline Phosphatase 71 IU/L (40-150) Troponin I < 0.001 ng/mL (0-0.300) Total Protein 7.2 g/dL (6.5-8.1) Albumin 3.2 g/dL (3.5-5.0) Globulin 4.0 g/dL (2.3-3.5) Albumin/Globulin Ratio 0.8 (0.8-2.0) Lab results reviewed: Yes (KENNETH ALFORD MD) Imaging Imaging results reviewed: Yes (KENNETH ALFORD MD) Imaging results reviewed: Yes Impressions Procedure: [id number] CT/CT CHEST W Exam Date: Exam Time: REPORT STATUS: Signed CT chest pulmonary embolism protocol CPT code: 81959 INDICATION: Metastatic lung cancer, shortness of breath ^PE protocol TECHNIQUE: Thin collimation axial images obtained through the level of the pulmonary arteries with additional imaging through the chest following the uneventful administration of 100 cc of low osmolar, nonionic intravenous contrast. Images reconstructed into coronal and sagittal MIPs for complete evaluation of the tortuous and overlapping pulmonary vascular structures and to reduce patient radiation dose. RADIATION DOSE: Total DLP: 564.32 mGy*cm Estimated effective dose: (DLP x 0.015 x size factor) mSv CTDIvol has been reviewed. It is below the limits set by the Radiation Protocol Committee (RPC). Dose reduction techniques used: Automated exposure control, adjustment of the mAs and/or kVp according to patient size, standardized low-dose protocol, and/or iterative reconstruction technique. COMPARISON: CT abdomen/pelvis 07/07/2020. CT chest FINDINGS: Pulmonary artery: No filling defects are appreciated within the main, left, right, lobar or visualized segmental pulmonary arteries to suggest embolism. Main pulmonary artery measures 3.8 cm. Aorta: The thoracic aorta is tortuous but not aneurysmally dilated. There are calcifications throughout the arch. No evidence of dissection. Lymph nodes: No enlarged axillary lymph nodes. Treated left paratracheal metastatic lymph node conglomeration measures 2.5 x 2.4 cm (previously, 5.9 x 6.6 cm). There is continued encasement of the left common carotid artery and left subclavian artery as well as the left internal mammary artery. The left internal mammary vein is occluded. Tumor infiltration in the prevascular space is redemonstrated with no evidence of definable mass. A right hilar lymph node measures 1.1 x 1.4 cm and is stable. Thyroid: Atrophic but otherwise normal. Mediastinum: Rightward mediastinal shift is stable. No pericardial effusion. The esophagus is collapsed. Lungs: Right Lung: Centrilobular and paraseptal emphysema. New groundglass opacities in the medial upper lobe. New lobulated soft tissue mass in the right upper lobe is 1.7 x 1.5 cm. Soft tissue nodule in the posterior lower lobe measures 2.0 x 2.2 cm (previously, 1.1 cm). There are also new groundglass airspace opacities in the posterior lower lobe. Left Lung: Centrilobular and paraseptal emphysema. Stable eventration of the left diaphragm with overlying atelectasis. Medial upper lobe mass measures 1.2 x 1.7 cm and is new. Pleura: Chronic posterior layering left pleural effusion is redemonstrated. No pleural based mass. No right pleural effusion. Abdomen: No mass or lymphadenopathy in the visualized upper abdomen. Bones: Lytic metastatic lesion in T1 is new. Sclerotic metastatic lesion in T5 is stable with invasion into the left pedicle and transverse process. Lytic metastatic lesion in T3 has progressed with mild (approximately 10%) superior endplate height loss. No retropulsed bone fragments. No soft tissue masses within the spinal canal. IMPRESSION: 1. No evidence of pulmonary embolus or aortic dissection. Stable enlargement of the main pulmonary artery suggestive of pulmonary artery hypertension. 2. New right and left upper lobe solid masses, enlarging right lower lobe mass and new groundglass opacities in the right upper and right lower lobes concerning for metastasis progression. The groundglass opacities could also represent an infectious/inflammatory process. Please clinically with clinical exam findings. 3. Progression of osseous metastases in the thoracic spine. Pathologic compression fracture of T3 of approximately 10%. 4. Mediastinal lymphadenopathy has diminished suggestive of treatment response. Signed by: Dr. Yen Adamson MD on 09/17/2020 6:27 PM Dictated By: YEN ADAMSON MD 26 Transcribed By: RADHA on 09/17/201826 COPY TO: KENNETH ALFORD MD~ (TRAE LÓPEZ MD) Diagnostics Tests Diagnostic test(s) reviewed: Yes (KENNETH ALFORD MD) Procedures 12 Lead ECG Interpretation ECG Interpretation : Facs Teacher: Interpreted by ED physician Date: Sep 17, 2020 Prior ECG tracings: reviewed Rhythm: sinus rhythm Rate: normal QRS axis: normal ST segments normal: Yes T waves normal: Yes Clinical Impression: non-specific ECG (KENNETH ALFORD MD) Assessment & Plan Medical Decision Making MDM 70-year-old male with past medical history significant for lung cancer who presents emergency department for bilateral lower chest pain. Patient states it is likely because he is not been able to have his that no patches the pharmacies out. Denies any other symptoms. Initial differential significant for cancer pain versus pulmonary embolism versus ACS. Cardiopulmonary workup and CT chest ordered. Handed off to Dr. López @ 1800 (KENNETH ALFORD MD) Assessment & Plan Final Impression: (1) Chest pain (KENNETH ALFORD MD) Final Impression: (1) Chest pain (2) Chest wall pain (3) Lung cancer (4) Lung cancer metastatic to bone (TRAE LÓPEZ MD) Depart Disposition: HOME, SELF-CARE Last Vital Signs Date Time Temp Pulse Resp B/P (MAP) Pulse Ox O2 Delivery O2 Flow Rate FiO2 09/17/20 16:03 79 24 117/66 99 Room Air (KENNETH ALFORD MD) Home Meds Active Scripts Magnesium Oxide (MAGNESIUM OXIDE) 400 Mg Tablet, 400 MG PO BID for 14 Days, #28 TAB 0 Refills Prov:FRANCOIS MOYER NP 05/31/20 Lisinopril (LISINOPRIL) 10 Mg Tablet, 10 MG PO DAILY for 14 Days, #14 TAB 0 Refills Prov:FRANCOIS MOYER NP 05/31/20 [Albuterol/Ipratropium Nebulize] 3 ML INHA No Conflict Check, 3 ML NEB RQ4H PRN for SHORTNESS OF BREATH for 14 Days, #84 DOSE 1 Refill Prov:FRANCOIS MOYER NP 05/31/20 Ranolazine (RANEXA) 500 Mg Tabsr, 1000 MG PO BID for 30 Days Prov:GARETH LIND BLEACH SUPERVISOR 03/24/20 Reported Medications Apixaban (Eliquis) 5 Mg Tab.ds.pk, MG PO BID, #60 07/09/20 Amiodarone HCl (Amiodarone HCl) 100 Mg Tablet, 200 MG PO DAILY 07/09/20 Metoprolol Succinate (METOPROLOL SUCCINATE) 25 Mg Tab.er.24h, 12.5 MG PO DAILY, #15 07/09/20 Aspirin (ASPIRIN) 81 Mg Tab.chew, 81 MG PO DAILY 05/28/20 Morphine Sulfate (MS CONTIN) 30 Mg Tablet.er, 30 MG PO Q12H, TAB 05/28/20 Atorvastatin Calcium (ATORVASTATIN CALCIUM) 20 Mg Tablet, 40 MG PO DAILY, #30 TA B 02/03/20 Metoprolol Succinate (METOPROLOL SUCCINATE) 25 Mg Tab.er.24h, 25 MG PO DAILY 12/24/18 Terazosin Hcl (TERAZOSIN HCL) 5 Mg Capsule, 5 MG PO HS, #30 CAP 02/19/16 Finasteride (FINASTERIDE) 5 Mg Tablet, 5 MG PO HS, #30 TAB 02/19/16 Loratadine (LORATADINE) 10 Mg Tablet, 10 MG PO DAILY, #30 TAB 02/19/16 Citalopram Hydrobromide (CITALOPRAM HBR) 40 Mg Tablet, 40 MG PO DAILY 02/19/16 Ascorbic Acid (VITAMIN C) 500 Mg Tablet, 500 MG PO DAILY 02/19/16 Multivitamin (DAILY VITAMIN) 1 Each Tablet, 1 TAB PO DAILY 07/09/13 Medications in the ED Morphine Sulfate 4 mg Q6H PRN IV SEVERE PAIN (7-10) Last administered on 09/17/20at 16:38; Admin Dose 4 MG; Start 09/17/20 at 16:00; Stop 09/24/20 at 15:59 Ondansetron HCl 4 mg NOW ONCE IV Last administered on 09/17/20at 16:38; Admin Dose 4 MG; Start 09/17/20 at 16:05; Stop 09/17/20 at 16:08; Status DC (KENNETH ALFORD MD) KENNETH ALFORD MD Sep 17, 2020 17:23 TRAE LÓPEZ MD Sep 17, 2020 21:03
[2020-09-17] MEDS ORDERED: IOPAMIDOL 370 MG/ML 200 ML INFUS..BTL INJ ONE (17:36)
[2020-09-17] MEDS ORDERED: SODIUM CHLORIDE 0.9% 50ML 50 ML ONE (17:36)
[2020-09-17] MEDS ORDERED: FENTANYL 75MCG/HR PATCH TD SCH (18:00)
--- NOTE | 2020-09-17 18:31 | Diagnostic Imaging Report ---
CT chest pulmonary embolism protocol CPT code: 00893 INDICATION: Metastatic lung cancer, shortness of breath ^PE protocol TECHNIQUE: Thin collimation axial images obtained through the level of the pulmonary arteries with additional imaging through the chest following the uneventful administration of 100 cc of low osmolar, nonionic intravenous contrast. Images reconstructed into coronal and sagittal MIPs for complete evaluation of the tortuous and overlapping pulmonary vascular structures and to reduce patient radiation dose. RADIATION DOSE: Total DLP: 564.32 mGy*cm Estimated effective dose: (DLP x 0.015 x size factor) mSv CTDIvol has been reviewed. It is below the limits set by the Radiation Protocol Committee (RPC). Dose reduction techniques used: Automated exposure control, adjustment of the mAs and/or kVp according to patient size, standardized low-dose protocol, and/or iterative reconstruction technique. COMPARISON: CT abdomen/pelvis 07/07/2020. CT chest FINDINGS: Pulmonary artery: No filling defects are appreciated within the main, left, right, lobar or visualized segmental pulmonary arteries to suggest embolism. Main pulmonary artery measures 3.8 cm. Aorta: The thoracic aorta is tortuous but not aneurysmally dilated. There are calcifications throughout the arch. No evidence of dissection. Lymph nodes: No enlarged axillary lymph nodes. Treated left paratracheal metastatic lymph node conglomeration measures 2.5 x 2.4 cm (previously, 5.9 x 6.6 cm). There is continued encasement of the left common carotid artery and left subclavian artery as well as the left internal mammary artery. The left internal mammary vein is occluded. Tumor infiltration in the prevascular space is redemonstrated with no evidence of definable mass. A right hilar lymph node measures 1.1 x 1.4 cm and is stable. Thyroid: Atrophic but otherwise normal. Mediastinum: Rightward mediastinal shift is stable. No pericardial effusion. The esophagus is collapsed. Lungs: Right Lung: Centrilobular and paraseptal emphysema. New groundglass opacities in the medial upper lobe. New lobulated soft tissue mass in the right upper lobe is 1.7 x 1.5 cm. Soft tissue nodule in the posterior lower lobe measures 2.0 x 2.2 cm (previously, 1.1 cm). There are also new groundglass airspace opacities in the posterior lower lobe. Left Lung: Centrilobular and paraseptal emphysema. Stable eventration of the left diaphragm with overlying atelectasis. Medial upper lobe mass measures 1.2 x 1.7 cm and is new. Pleura: Chronic posterior layering left pleural effusion is redemonstrated. No pleural based mass. No right pleural effusion. Abdomen: No mass or lymphadenopathy in the visualized upper abdomen. Bones: Lytic metastatic lesion in T1 is new. Sclerotic metastatic lesion in T5 is stable with invasion into the left pedicle and transverse process. Lytic metastatic lesion in T3 has progressed with mild (approximately 10%) superior endplate height loss. No retropulsed bone fragments. No soft tissue masses within the spinal canal. IMPRESSION: 1. No evidence of pulmonary embolus or aortic dissection. Stable enlargement of the main pulmonary artery suggestive of pulmonary artery hypertension. 2. New right and left upper lobe solid masses, enlarging right lower lobe mass and new groundglass opacities in the right upper and right lower lobes concerning for metastasis progression. The groundglass opacities could also represent an infectious/inflammatory process. Please clinically with clinical exam findings. 3. Progression of osseous metastases in the thoracic spine. Pathologic compression fracture of T3 of approximately 10%. 4. Mediastinal lymphadenopathy has diminished suggestive of treatment response. Signed by: Dr. Parker Adamson MD on 09/17/2020 6:27 PM
== END 2020-09-17 21:05 | disposition home or self-care (01) ==
LOC: ER 16:00
DX: R07.89 Other chest pain (principal); R07.9 Chest pain, unspecified; C34.90 Malignant neoplasm of unspecified part of unspecified bronchus or lung; C79.51 Secondary malignant neoplasm of bone; R06.00 Dyspnea, unspecified; I10 Essential (primary) hypertension; I25.10 Atherosclerotic heart disease of native coronary artery without angina pectoris; F41.8 Other specified anxiety disorders; K21.9 Gastro-esophageal reflux disease without esophagitis; E78.5 Hyperlipidemia, unspecified; M54.9 Dorsalgia, unspecified
CPT/HCPCS: 36415; 71260; 80053; 84484; 85025; 93005; 99284; J2270; J2405; Q9967

== ENCOUNTER 2020-09-24 19:29 | Inpatient (IN) | payer MEDICARE, OTHER ==
[~2020-09-24] VITALS: Ht 172.7 cm; Wt 79.4 kg
[2020-09-24 20:07] LABS: BASOPHILS # (AUTO) 0.1 (0.0-0.1); BASOPHILS % 0.3 % (0.0-1.0); EOSINOPHILS % 0.1 % (0.0-6.0); HEMOGLOBIN 11.2 g/dL (14.0-18.0); LYMPHOCYTES # (AUTO) 0.9 (1.0-3.2); LYMPHOCYTES % 4.8 % (18.0-39.1); MEAN CORPUSCULAR VOLUME 85.8 fL (81-99); MONOCYTES # (AUTO) 1.1 (0.2-0.8); MONOCYTES % 5.8 % (4.4-11.3); NEUTROPHILS # (AUTO) 15.8 (2.1-6.9); NEUTROPHILS % 88.2 % (38.7-80.0); PLATELET COUNT 463 x10e3/uL (140-360); RED BLOOD COUNT 3.73 x10e6/uL (4.3-5.7); RED CELL DISTRIBUTION WIDTH 14.9 % (11.7-14.4)
[2020-09-24 20:21] LABS: ALANINE AMINOTRANSFERASE 16 IU/L (0-55); ALBUMIN/GLOBULIN RATIO 0.7 (0.8-2.0); ALKALINE PHOSPHATASE 66 IU/L (40-150); ANION GAP 18.8 mmol/L (8-16); BLOOD UREA NITROGEN 12 mg/dL (7-26); BUN/CREATININE RATIO 24 (6-25); CALCIUM 8.6 mg/dL (8.4-10.2); CARBON DIOXIDE 18 mmol/L (22-29); CHLORIDE 97 mmol/L (98-107); CREATINE KINASE 73 IU/L (30-200); EST GLOMERULAR FILTRATION RATE > 60 ML/MIN (60-); GLUCOSE 169 mg/dL (74-118); POTASSIUM 4.8 mmol/L (3.5-5.1); SODIUM 129 mmol/L (136-145)
[2020-09-24] MEDS ORDERED: CEFTRIAXONE SOD 1 GM/NS 50 ML 50 ML IV SCH (21:15)
[2020-09-24] MEDS: SODIUM CHLORIDE 0.9% 1000ML 1,000 ML IV SCH ×3 (21:30→23:17)
[2020-09-24] MEDS: AZITHROMYCIN 500MG/NS 250 ML 250 ML IV SCH (22:15)
[2020-09-24] MEDS ORDERED: SODIUM CHLORIDE 0.9% 1000ML 1,000 ML IV ONE (22:45)
[2020-09-24] MEDS: ALBUTEROL SULF 0.083% NEB SOLN 3 ML NEB NEB SCH (23:35)
[2020-09-24] MEDS: IPRATROPIUM BROMIDE 0.02% 2.5 ML NEB NEB SCH (23:35)
[2020-09-25] VITALS (11 sets, daily range): BP systolic 106–129; BP diastolic 61–80
[2020-09-25] MEDS: SODIUM CHLORIDE 0.9% 1000ML 1,000 ML IV SCH ×9 (00:18→08:26)
[2020-09-25] MEDS: ALBUTEROL SULF 0.083% NEB SOLN 3 ML NEB NEB SCH ×2 (03:55→07:40)
[2020-09-25 05:08] LABS: BASOPHILS % 0.2 % (0.0-1.0); EOSINOPHILS % 0.2 % (0.0-6.0); HEMATOCRIT 30.7 % (38.2-49.6); HEMOGLOBIN 10.4 g/dL (14.0-18.0); LYMPHOCYTES # (AUTO) 1.5 (1.0-3.2); MEAN CORPUSCULAR HEMOGLOBIN 30.2 pg (28-32); MEAN CORPUSCULAR HGB CONC 33.9 g/dL (31-35); MEAN CORPUSCULAR VOLUME 89.2 fL (81-99); MONOCYTES # (AUTO) 1.3 (0.2-0.8); MONOCYTES % 7.5 % (4.4-11.3); NEUTROPHILS % 82.4 % (38.7-80.0); PLATELET COUNT 453 x10e3/uL (140-360); RED BLOOD COUNT 3.44 x10e6/uL (4.3-5.7); RED CELL DISTRIBUTION WIDTH 14.9 % (11.7-14.4)
[2020-09-25 05:30] LABS: ALANINE AMINOTRANSFERASE 15 IU/L (0-55); ALBUMIN 2.9 g/dL (3.5-5.0); ALBUMIN/GLOBULIN RATIO 0.7 (0.8-2.0); ALKALINE PHOSPHATASE 72 IU/L (40-150); ANION GAP 16.1 mmol/L (8-16); BLOOD UREA NITROGEN 12 mg/dL (7-26); BUN/CREATININE RATIO 15 (6-25); CALCIUM 8.3 mg/dL (8.4-10.2); CARBON DIOXIDE 22 mmol/L (22-29); CHLORIDE 99 mmol/L (98-107); CREATININE, SERUM 0.79 mg/dL (0.72-1.25); EST GLOMERULAR FILTRATION RATE > 60 ML/MIN (60-); GLUCOSE 120 mg/dL (74-118); POTASSIUM 5.1 mmol/L (3.5-5.1); SODIUM 132 mmol/L (136-145)
[2020-09-25 06:00] LABS: CREATINE KINASE MB 6.5 ng/mL (0-5.0)
[2020-09-25] MEDS: IPRATROPIUM BROMIDE 0.02% 2.5 ML NEB NEB SCH (07:40)
[2020-09-25] MEDS ORDERED: HYDRALAZINE HCL 20 MG/ML VIAL IV PRN (09:15)
[2020-09-25] MEDS ORDERED: ACETAMINOPHEN 325 MG TAB PO PRN (09:15)
[2020-09-25] MEDS ORDERED: ONDANSETRON HCL INJ 2MG/ML 2ML 2 MG/ML VIAL IV PRN (09:15)
[2020-09-25] MEDS ORDERED: ALBUTEROL/IPRATROPIUM 3 ML NEB NEB PRN (09:15)
[2020-09-25] MEDS ORDERED: GUAIFENESIN/CODEINE 10 ML CUP PO PRN (09:45)
[2020-09-25] MEDS ORDERED: ALBUTEROL SULF 0.083% NEB SOLN 3 ML NEB NEB PRN (09:45)
[2020-09-25] MEDS ORDERED: MORPHINE SULFATE 30 MG TAB ER PO SCH (09:45)
[2020-09-25] MEDS ORDERED: IPRATROPIUM BROMIDE 0.02% 2.5 ML NEB NEB PRN (09:45)
[2020-09-25] MEDS ORDERED: METHYLPREDNISOLONE SOD SUCC 125 MG/2ML VIAL IV ONE ×2 (10:30→14:00)
[2020-09-25] MEDS ORDERED: NORCO 5-325 TA1 EACH PO (12:51)
[2020-09-25] MEDS ORDERED: FENTANYL1 EAC1 TD (13:13)
[2020-09-25] MEDS ORDERED: HYDROCODONE/APAP 5MG-325MG TAB PO PRN (13:15)
[2020-09-25] MEDS: MEROPENEM 1GM 100 ML IV SCH ×2 (13:33→18:48)
[2020-09-25] MEDS: MULTIVITAMINS/MINERALS TAB PO SCH (13:35)
[2020-09-25] MEDS: AMIODARONE HCL 200 MG TAB PO SCH (13:35)
[2020-09-25] MEDS ORDERED: FENTANYL 50 MCG/HR PATCH TD SCH (14:00)
[2020-09-25] MEDS ORDERED: FENTANYL 75MCG/HR PATCH TD SCH (14:00)
[2020-09-25] MEDS: CITALOPRAM HYDROBROMIDE 20 MG TAB PO SCH (14:07)
[2020-09-25] MEDS: FAMOTIDINE 20 MG TAB PO SCH (16:30)
[2020-09-25 16:49] LABS: CREATINE KINASE MB 7.4 ng/mL (0-5.0)
[2020-09-25] MEDS ORDERED: METOPROLOL SUCCINATE 50 MG TAB XL PO STA (17:44)
[2020-09-25 18:07] LABS: CLARITY,URINE HAZY (CLEAR); COLOR,URINE YELLOW (YELLOW); KETONES,URINE 1+ (NEGATIVE); LEUKOCYTE ESTERASE ,URINE NEGATIVE (NEGATIVE); NITRITE,URINE NEGATIVE (NEGATIVE); PROTEIN,URINE DIPSTICK 1+ (NEGATIVE); URINE UROBILINOGEN 0.2 mg/dL (0.2 - 1)
[2020-09-25 18:12] LABS: BACTERIA,URINE FEW /HPF; EPITHELIAL CELLS,URINE FEW /LPF; RBC,URINE 0-5 /HPF (0-5)
[2020-09-25] MEDS: TERAZOSIN HCL 5 MG CAP PO SCH (19:17)
[2020-09-25] MEDS ORDERED: FINASTERIDE 5 MG TAB PO SCH (21:00)
[2020-09-25] MEDS: AZITHROMYCIN 500MG/NS 250 ML 250 ML IV SCH (22:00)
[2020-09-26] VITALS (11 sets, daily range): BP systolic 97–136; BP diastolic 56–86
[2020-09-26] MEDS: MEROPENEM 1GM 100 ML IV SCH ×3 (02:37→17:14)
[2020-09-26 06:15] LABS: BASOPHILS % 0.1 % (0.0-1.0); HEMATOCRIT 28.9 % (38.2-49.6); HEMOGLOBIN 9.9 g/dL (14.0-18.0); LYMPHOCYTES # (AUTO) 0.7 (1.0-3.2); LYMPHOCYTES % 4.4 % (18.0-39.1); MEAN CORPUSCULAR HEMOGLOBIN 30.2 pg (28-32); MEAN CORPUSCULAR HGB CONC 34.3 g/dL (31-35); MEAN CORPUSCULAR VOLUME 88.1 fL (81-99); MONOCYTES # (AUTO) 0.6 (0.2-0.8); MONOCYTES % 4.3 % (4.4-11.3); NEUTROPHILS # (AUTO) 13.3 (2.1-6.9); NEUTROPHILS % 90.5 % (38.7-80.0); PLATELET COUNT 430 x10e3/uL (140-360); RED BLOOD COUNT 3.28 x10e6/uL (4.3-5.7); RED CELL DISTRIBUTION WIDTH 15.1 % (11.7-14.4)
[2020-09-26 06:34] LABS: ANION GAP 11.1 mmol/L (8-16); BLOOD UREA NITROGEN 12 mg/dL (7-26); BUN/CREATININE RATIO 20 (6-25); CALCIUM 8.5 mg/dL (8.4-10.2); CARBON DIOXIDE 26 mmol/L (22-29); CHLORIDE 102 mmol/L (98-107); CREATININE, SERUM 0.61 mg/dL (0.72-1.25); EST GLOMERULAR FILTRATION RATE > 60 ML/MIN (60-); GLUCOSE 121 mg/dL (74-118); POTASSIUM 5.1 mmol/L (3.5-5.1); SODIUM 134 mmol/L (136-145)
[2020-09-26] MEDS ORDERED: CITALOPRAM HYDROBROMIDE 20 MG TAB PO SCH (09:00)
[2020-09-26] MEDS ORDERED: METOPROLOL SUCCINATE 25 MG TAB XL PO SCH (09:00)
[2020-09-26] MEDS ORDERED: ATORVASTATIN 20 MG TAB PO SCH (09:00)
[2020-09-26] MEDS: CITALOPRAM HYDROBROMIDE 20 MG TAB PO SCH (09:52)
[2020-09-26] MEDS: FAMOTIDINE 20 MG TAB PO SCH ×2 (09:52→17:09)
[2020-09-26] MEDS: MULTIVITAMINS/MINERALS TAB PO SCH (09:52)
[2020-09-26] MEDS: AMIODARONE HCL 200 MG TAB PO SCH (09:52)
[2020-09-26] MEDS: ASCORBIC ACID 500 MG TAB PO SCH (09:53)
[2020-09-26] MEDS: METOPROLOL SUCCINATE 50 MG TAB XL PO SCH ×2 (09:53→17:09)
[2020-09-26] MEDS: FENTANYL 75MCG/HR PATCH TD SCH (09:54)
[2020-09-26] MEDS ORDERED: MAGNESIUM HYDROXIDE 30 ML UDC PO PRN (10:45)
[2020-09-26] MEDS ORDERED: BISACODYL 10 MG SUPP PR ONE (16:00)
[2020-09-26] MEDS ORDERED: MORPHINE SULFATE INJ 2 MG/ML SYR IV PRN (17:45)
[2020-09-26] MEDS: TERAZOSIN HCL 5 MG CAP PO SCH (20:13)
[2020-09-26] MEDS: AZITHROMYCIN 500MG/NS 250 ML 250 ML IV SCH (20:48)
[2020-09-27] VITALS (7 sets, daily range): BP systolic 109–136; BP diastolic 63–76
[2020-09-27] MEDS: MEROPENEM 1GM 100 ML IV SCH ×3 (02:03→18:05)
[2020-09-27 05:04] LABS: BASOPHILS % 0.2 % (0.0-1.0); EOSINOPHILS % 0.1 % (0.0-6.0); HEMATOCRIT 30.1 % (38.2-49.6); HEMOGLOBIN 10.6 g/dL (14.0-18.0); LYMPHOCYTES # (AUTO) 1.7 (1.0-3.2); LYMPHOCYTES % 8.8 % (18.0-39.1); MEAN CORPUSCULAR HEMOGLOBIN 30.3 pg (28-32); MEAN CORPUSCULAR HGB CONC 35.2 g/dL (31-35); MONOCYTES # (AUTO) 0.9 (0.2-0.8); MONOCYTES % 4.8 % (4.4-11.3); NEUTROPHILS # (AUTO) 16.1 (2.1-6.9); NEUTROPHILS % 85.4 % (38.7-80.0); PLATELET COUNT 512 x10e3/uL (140-360); RED CELL DISTRIBUTION WIDTH 15.4 % (11.7-14.4)
[2020-09-27 05:32] LABS: ALANINE AMINOTRANSFERASE 36 IU/L (0-55); ALBUMIN 2.7 g/dL (3.5-5.0); ALBUMIN/GLOBULIN RATIO 0.7 (0.8-2.0); ALKALINE PHOSPHATASE 91 IU/L (40-150); ANION GAP 13.1 mmol/L (8-16); BLOOD UREA NITROGEN 17 mg/dL (7-26); BUN/CREATININE RATIO 27 (6-25); CALCIUM 8.1 mg/dL (8.4-10.2); CARBON DIOXIDE 26 mmol/L (22-29); CHLORIDE 101 mmol/L (98-107); CREATININE, SERUM 0.64 mg/dL (0.72-1.25); EST GLOMERULAR FILTRATION RATE > 60 ML/MIN (60-); GLUCOSE 104 mg/dL (74-118); POTASSIUM 5.1 mmol/L (3.5-5.1); SODIUM 135 mmol/L (136-145)
[2020-09-27] MEDS: FAMOTIDINE 20 MG TAB PO SCH ×2 (07:58→18:05)
[2020-09-27] MEDS: ASCORBIC ACID 500 MG TAB PO SCH (08:00)
[2020-09-27] MEDS: MULTIVITAMINS/MINERALS TAB PO SCH (08:00)
[2020-09-27] MEDS: CITALOPRAM HYDROBROMIDE 20 MG TAB PO SCH (08:00)
[2020-09-27] MEDS: METOPROLOL SUCCINATE 50 MG TAB XL PO SCH ×2 (08:00→18:05)
[2020-09-27] MEDS: AMIODARONE HCL 200 MG TAB PO SCH (08:00)
[2020-09-27] MEDS ORDERED: FUROSEMIDE INJ 10 MG/ML 2 ML VIAL IV ONE (10:00)
[2020-09-27] MEDS: HYDROCODONE/APAP 10MG-325MG TAB PO PRN (12:32)
[2020-09-27] MEDS: D5NS/KCL 20MEQ 1,000 ML IV SCH (14:06)
[2020-09-27] MEDS: TERAZOSIN HCL 5 MG CAP PO SCH (21:40)
[2020-09-27] MEDS: AZITHROMYCIN 500MG/NS 250 ML 250 ML IV SCH (22:17)
[2020-09-28] VITALS (8 sets, daily range): BP systolic 90–138; BP diastolic 52–80
[2020-09-28 05:09] LABS: BASOPHILS % 0.3 % (0.0-1.0); EOSINOPHILS # (AUTO) 0.3 (0.0-0.4); EOSINOPHILS % 2.3 % (0.0-6.0); HEMATOCRIT 26.2 % (38.2-49.6); HEMOGLOBIN 9.2 g/dL (14.0-18.0); LYMPHOCYTES # (AUTO) 1.2 (1.0-3.2); LYMPHOCYTES % 9.3 % (18.0-39.1); MEAN CORPUSCULAR HEMOGLOBIN 30.3 pg (28-32); MEAN CORPUSCULAR HGB CONC 35.1 g/dL (31-35); MEAN CORPUSCULAR VOLUME 86.2 fL (81-99); MONOCYTES # (AUTO) 0.8 (0.2-0.8); MONOCYTES % 6.1 % (4.4-11.3); NEUTROPHILS # (AUTO) 10.1 (2.1-6.9); NEUTROPHILS % 81.5 % (38.7-80.0); RED BLOOD COUNT 3.04 x10e6/uL (4.3-5.7); RED CELL DISTRIBUTION WIDTH 15.4 % (11.7-14.4)
[2020-09-28 05:32] LABS: ALANINE AMINOTRANSFERASE 31 IU/L (0-55); ALBUMIN 2.3 g/dL (3.5-5.0); ALBUMIN/GLOBULIN RATIO 0.7 (0.8-2.0); ALKALINE PHOSPHATASE 77 IU/L (40-150); ANION GAP 11.3 mmol/L (8-16); BLOOD UREA NITROGEN 14 mg/dL (7-26); BUN/CREATININE RATIO 23 (6-25); CALCIUM 7.8 mg/dL (8.4-10.2); CARBON DIOXIDE 27 mmol/L (22-29); CHLORIDE 100 mmol/L (98-107); EST GLOMERULAR FILTRATION RATE > 60 ML/MIN (60-); GLUCOSE 96 mg/dL (74-118); POTASSIUM 4.3 mmol/L (3.5-5.1); SODIUM 134 mmol/L (136-145)
[2020-09-28 05:39] LABS: PLATELET COUNT 366 x10e3/uL (140-360)
[2020-09-28] MEDS: MEROPENEM 1GM 100 ML IV SCH ×3 (06:10→17:14)
[2020-09-28] MEDS: FAMOTIDINE 20 MG TAB PO SCH ×2 (08:30→17:05)
[2020-09-28] MEDS: MULTIVITAMINS/MINERALS TAB PO SCH (09:20)
[2020-09-28] MEDS: CITALOPRAM HYDROBROMIDE 20 MG TAB PO SCH (09:20)
[2020-09-28] MEDS: FUROSEMIDE INJ 10 MG/ML 2 ML VIAL IV SCH (09:20)
[2020-09-28] MEDS: ASCORBIC ACID 500 MG TAB PO SCH (09:20)
[2020-09-28] MEDS: AMIODARONE HCL 200 MG TAB PO SCH (09:20)
[2020-09-28] MEDS: D5NS/KCL 20MEQ 1,000 ML IV SCH ×2 (09:21→20:46)
[2020-09-28] MEDS: METOPROLOL SUCCINATE 50 MG TAB XL PO SCH ×2 (09:21→17:14)
[2020-09-28] MEDS: HYDROCODONE/APAP 10MG-325MG TAB PO PRN (17:14)
[2020-09-28] MEDS: TERAZOSIN HCL 5 MG CAP PO SCH (20:47)
[2020-09-28] MEDS: AZITHROMYCIN 500MG/NS 250 ML 250 ML IV SCH (21:15)
[2020-09-29] VITALS (7 sets, daily range): BP systolic 111–144; BP diastolic 65–77
[2020-09-29] MEDS: MEROPENEM 1GM 100 ML IV SCH ×3 (02:36→17:51)
[2020-09-29 05:14] LABS: BASOPHILS # (AUTO) 0.1 (0.0-0.1); BASOPHILS % 0.3 % (0.0-1.0); EOSINOPHILS # (AUTO) 0.5 (0.0-0.4); EOSINOPHILS % 3.5 % (0.0-6.0); HEMATOCRIT 29.9 % (38.2-49.6); HEMOGLOBIN 10.1 g/dL (14.0-18.0); LYMPHOCYTES % 6.7 % (18.0-39.1); MEAN CORPUSCULAR HEMOGLOBIN 29.4 pg (28-32); MEAN CORPUSCULAR HGB CONC 33.8 g/dL (31-35); MEAN CORPUSCULAR VOLUME 87.2 fL (81-99); MONOCYTES # (AUTO) 0.8 (0.2-0.8); MONOCYTES % 5.2 % (4.4-11.3); NEUTROPHILS # (AUTO) 12.4 (2.1-6.9); NEUTROPHILS % 83.8 % (38.7-80.0); PLATELET COUNT 330 x10e3/uL (140-360); RED BLOOD COUNT 3.43 x10e6/uL (4.3-5.7); RED CELL DISTRIBUTION WIDTH 15.4 % (11.7-14.4)
[2020-09-29 05:35] LABS: ANION GAP 9.9 mmol/L (8-16); BLOOD UREA NITROGEN 12 mg/dL (7-26); BUN/CREATININE RATIO 20 (6-25); CALCIUM 7.9 mg/dL (8.4-10.2); CARBON DIOXIDE 28 mmol/L (22-29); CHLORIDE 100 mmol/L (98-107); CREATININE, SERUM 0.59 mg/dL (0.72-1.25); EST GLOMERULAR FILTRATION RATE > 60 ML/MIN (60-); GLUCOSE 92 mg/dL (74-118); MAGNESIUM 1.8 MG/DL (1.3-2.1); PHOSPHORUS 1.5 MG/DL (2.3-4.7); POTASSIUM 4.9 mmol/L (3.5-5.1); SODIUM 133 mmol/L (136-145)
[2020-09-29] MEDS: FAMOTIDINE 20 MG TAB PO SCH ×2 (08:35→17:51)
[2020-09-29] MEDS: CITALOPRAM HYDROBROMIDE 20 MG TAB PO SCH (08:36)
[2020-09-29] MEDS: MULTIVITAMINS/MINERALS TAB PO SCH (08:36)
[2020-09-29] MEDS: FUROSEMIDE INJ 10 MG/ML 2 ML VIAL IV SCH (08:36)
[2020-09-29] MEDS: METOPROLOL SUCCINATE 50 MG TAB XL PO SCH ×2 (08:36→17:51)
[2020-09-29] MEDS: AMIODARONE HCL 200 MG TAB PO SCH (08:36)
[2020-09-29] MEDS: ASCORBIC ACID 500 MG TAB PO SCH (08:36)
[2020-09-29] MEDS: HYDROCODONE/APAP 10MG-325MG TAB PO PRN ×2 (08:37→22:11)
[2020-09-29] MEDS: FENTANYL 75MCG/HR PATCH TD SCH (08:42)
[2020-09-29] MEDS ORDERED: SODIUM PHOSPHATE IN 0.9 % NACL 15 MMOL in SODIUM CHLORIDE 0.9% 250ML 250 ML IV ONE ×2 (15:30)
[2020-09-29] MEDS: TERAZOSIN HCL 5 MG CAP PO SCH (21:00)
[2020-09-29] MEDS: AZITHROMYCIN 500MG/NS 250 ML 250 ML IV SCH (21:44)
[2020-09-30] VITALS (7 sets, daily range): BP systolic 96–134; BP diastolic 57–74
[2020-09-30] MEDS: D5NS/KCL 20MEQ 1,000 ML IV SCH (02:00)
[2020-09-30] MEDS: MEROPENEM 1GM 100 ML IV SCH ×2 (02:41→09:42)
[2020-09-30 08:35] LABS: BASOPHILS % 0.2 % (0.0-1.0); EOSINOPHILS # (AUTO) 0.4 (0.0-0.4); EOSINOPHILS % 2.2 % (0.0-6.0); HEMATOCRIT 30.2 % (38.2-49.6); HEMOGLOBIN 10.5 g/dL (14.0-18.0); LYMPHOCYTES # (AUTO) 1.1 (1.0-3.2); LYMPHOCYTES % 6.1 % (18.0-39.1); MEAN CORPUSCULAR HEMOGLOBIN 30.3 pg (28-32); MEAN CORPUSCULAR HGB CONC 34.8 g/dL (31-35); MONOCYTES # (AUTO) 0.9 (0.2-0.8); MONOCYTES % 5.2 % (4.4-11.3); NEUTROPHILS # (AUTO) 15.3 (2.1-6.9); NEUTROPHILS % 85.8 % (38.7-80.0); PLATELET COUNT 277 x10e3/uL (140-360); RED BLOOD COUNT 3.47 x10e6/uL (4.3-5.7); RED CELL DISTRIBUTION WIDTH 15.2 % (11.7-14.4)
[2020-09-30 09:00] LABS: ANION GAP 10.4 mmol/L (8-16); BLOOD UREA NITROGEN 13 mg/dL (7-26); BUN/CREATININE RATIO 23 (6-25); CALCIUM 7.9 mg/dL (8.4-10.2); CARBON DIOXIDE 28 mmol/L (22-29); CHLORIDE 100 mmol/L (98-107); CREATININE, SERUM 0.56 mg/dL (0.72-1.25); EST GLOMERULAR FILTRATION RATE > 60 ML/MIN (60-); GLUCOSE 104 mg/dL (74-118); POTASSIUM 4.4 mmol/L (3.5-5.1); SODIUM 134 mmol/L (136-145)
[2020-09-30 09:19] LABS: MAGNESIUM 1.8 MG/DL (1.3-2.1); PHOSPHORUS 2.2 MG/DL (2.3-4.7)
[2020-09-30] MEDS: HYDROCODONE/APAP 10MG-325MG TAB PO PRN ×2 (09:20→16:50)
[2020-09-30] MEDS: CITALOPRAM HYDROBROMIDE 20 MG TAB PO SCH (09:42)
[2020-09-30] MEDS: ASCORBIC ACID 500 MG TAB PO SCH (09:42)
[2020-09-30] MEDS: MULTIVITAMINS/MINERALS TAB PO SCH (09:42)
[2020-09-30] MEDS: AMIODARONE HCL 200 MG TAB PO SCH (09:42)
[2020-09-30] MEDS: FAMOTIDINE 20 MG TAB PO SCH ×2 (09:42→16:49)
[2020-09-30] MEDS: FUROSEMIDE INJ 10 MG/ML 2 ML VIAL IV SCH (09:42)
[2020-09-30] MEDS: METOPROLOL SUCCINATE 50 MG TAB XL PO SCH ×2 (09:49→16:49)
[2020-09-30] MEDS ORDERED: TOPROL XL50 MG PO (11:53)
[2020-09-30] MEDS ORDERED: MILK OF MA400 MG/5 M PO (11:53)
[2020-09-30] MEDS ORDERED: Guaifenesin/Codeine PO (11:53)
[2020-09-30] MEDS ORDERED: LASIX20 MG PO (11:53)
[2020-09-30] MEDS ORDERED: AZITHROMYCIN250 MG PO (11:53)
[2020-09-30] MEDS ORDERED: ONDANSETRON HCL 4 MG ORAL DISINTEGRATING TAB PO PRN (12:30)
== END 2020-09-30 17:00 | disposition hospice, inpatient (51) | DRG 871 ==
LOC: ER 19:37 → ERHOLD 22:34 → IMCU 09-25 01:00
PROVIDERS: ADMIT Internal Medicine; ATTEND Internal Medicine
DX: A41.9 Sepsis, unspecified organism (principal); J15.9 Unspecified bacterial pneumonia; J96.21 Acute and chronic respiratory failure with hypoxia; C79.9 Secondary malignant neoplasm of unspecified site; E87.1 Hypo-osmolality and hyponatremia; C34.90 Malignant neoplasm of unspecified part of unspecified bronchus or lung; C79.51 Secondary malignant neoplasm of bone; I48.0 Paroxysmal atrial fibrillation; D50.0 Iron deficiency anemia secondary to blood loss (chronic); Z66 Do not resuscitate; Z20.828 Contact with and (suspected) exposure to other viral communicable diseases; N40.0 Benign prostatic hyperplasia without lower urinary tract symptoms; E78.5 Hyperlipidemia, unspecified; R77.1 Abnormality of globulin; E83.39 Other disorders of phosphorus metabolism
CPT/HCPCS: 36415; 71045; 80048; 80053; 81001; 82550; 82553; 83605; 83735; 83880; 84100; 84484; 85025; 87040; 87071; 87086; 87205; 93005; 93306; 94640; 94660; 99284; J0456; J0696; J1940; J2270; J2930; J7030; J7050; U0002